=== PATIENT | female | born 1985 | race Caucasian/White ===

== ENCOUNTER 2016-08-06 20:26 | Emergency (ER) | payer MEDICAID ==
--- NOTE | 2016-08-06 20:36 | ER Document Report ---
ED Medical Screen (RME) - General Stated Complaint: HEADACHE Time seen by provider: 20:34 Mode of Arrival: Ambulatory Information source: Patient Notes: 31-year-old female presents to ED for headache since this a.m. started after a lot of anxiety this morning but as the day progressed the headache progressed states did not become severe until about 3 hours ago. Patient states she has vomited 2. Patient states headache is worse with noise like and smells. Last menstrual period 07/29/2016 I have greeted and performed a rapid initial assessment of this patient. A comprehensive ED assessment and evaluation of the patient, analysis of test results and completion of medical decision making process will be conducted by an additional ED providers. TRAVEL OUTSIDE OF THE [place] IN LAST 30 DAYS: No - Related Data Allergies/Adverse Reactions: infliximab [From Remicade] Allergy (Severe, Verified 07/10/16 16:20) Anaphylaxis clindamycin [Clindamycin] Allergy (Verified 07/10/16 16:20) NSAIDS (Non-Steroidal Anti-Inflamma Allergy (Verified 07/10/16 16:20) sulfamethoxazole [From Bactrim] Allergy (Verified 07/10/16 16:20) trimethoprim [From Bactrim] Allergy (Verified 07/10/16 16:20) codeine [Codeine] Adverse Reaction (Verified 07/10/16 16:45) Past Medical History - Past Medical History Cardiac Medical History: Denies: Hx Coronary Artery Disease, Hx Heart Attack, Hx Hypertension Pulmonary Medical History: Reports: Hx Asthma Denies: Hx Bronchitis, Hx COPD, Hx Pneumonia Neurological Medical History: Reports: Hx Migraine, Hx Seizures - BLOOD SUGAR GOT TOO LOW. Denies: Hx Cerebrovascular Accident Endocrine Medical History: Reports: Hx Diabetes Mellitus Type 1 GI Medical History: Reports: Hx Gastroesophageal Reflux Disease, Hx Ulcerative Colitis Musculoskeltal Medical History: Denies Hx Arthritis, Reports Hx Fibromyalgia, Reports Hx Musculoskeletal Trauma Psychiatric Medical History: Reports: Hx Anxiety, Hx Depression Traumatic Medical History: Reports: Hx Fractures Past Surgical History: Reports: Hx Section - x1, Hx Tubal Ligation. Denies: Hx Pacemaker - Immunizations Hx Diphtheria, Pertussis, Tetanus Vaccination: Yes
[2016-08-06] MEDS ORDERED: DIPHENHYDRAMINE HCL 50 MG/ML VIAL IV ONE (20:37)
[2016-08-06] MEDS ORDERED: KETOROLAC TROMETHAMINE INJ/PF 30 MG/1 ML SDV IV ONE (20:37)
[2016-08-06] MEDS ORDERED: PROCHLORPERAZINE EDISYLATE INJ 10 MG/2 ML VIAL IV ONE (20:37)
[2016-08-06] MEDS ORDERED: NORMAL SALINE 1000 ML 1,000 ML IV ONE (20:38)
[2016-08-06] MEDS ORDERED: LORAZEPAM INJ 2 MG/1 ML VIAL IV ONE (21:34)
--- NOTE | 2016-08-06 21:34 | ER Document Report ---
ED General - General Chief Complaint: Headache <24 hrs old Stated Complaint: HEADACHE Mode of Arrival: Ambulatory Notes: Patient is a 31-year-old female past medical history of migraine headaches and ulcerative colitis who presents with 3 days of a severe, bilateral temporal headache. She describes this as a constant, throbbing, severe pain. Lights and sounds worsen the pain. She has tried Aleve at home with no improvement of the headache. Notes this feels very similar to prior migraine headaches that she has had in the past. Headache was gradual in onset and got progressively worse. She denies any associated weakness, numbness, fever, or altered mental status. She has not seen her primary care physician regarding today's concerns. She denies any head trauma. TRAVEL OUTSIDE OF THE [place] IN LAST 30 DAYS: No - Related Data Allergies/Adverse Reactions: infliximab [From Remicade] Allergy (Severe, Verified 07/10/16 16:20) Anaphylaxis clindamycin [Clindamycin] Allergy (Verified 07/10/16 16:20) NSAIDS (Non-Steroidal Anti-Inflamma Allergy (Verified 07/10/16 16:20) sulfamethoxazole [From Bactrim] Allergy (Verified 07/10/16 16:20) trimethoprim [From Bactrim] Allergy (Verified 07/10/16 16:20) codeine [Codeine] Adverse Reaction (Mild, Verified 08/06/16 20:34) Past Medical History - General Information source: Patient - Social History Smoking Status: Current Every Day Smoker Chew tobacco use (# tins/day): No Frequency of alcohol use: None Drug Abuse: None Lives with: Spouse/Significant other Family History: COPD, DM, Malignancy Patient has suicidal ideation: No Patient has homicidal ideation: No - Past Medical History Cardiac Medical History: Denies: Hx Coronary Artery Disease, Hx Heart Attack, Hx Hypertension Pulmonary Medical History: Reports: Hx Asthma Denies: Hx Bronchitis, Hx COPD, Hx Pneumonia Neurological Medical History: Reports: Hx Migraine, Hx Seizures - BLOOD SUGAR GOT TOO LOW. Denies: Hx Cerebrovascular Accident Endocrine Medical History: Reports: Hx Diabetes Mellitus Type 1 Renal/ Medical History: Denies: Hx Peritoneal Dialysis GI Medical History: Reports: Hx Gastroesophageal Reflux Disease, Hx Ulcerative Colitis Musculoskeltal Medical History: Denies Hx Arthritis, Reports Hx Fibromyalgia, Reports Hx Musculoskeletal Trauma Psychiatric Medical History: Reports: Hx Anxiety, Hx Depression Traumatic Medical History: Reports: Hx Fractures Past Surgical History: Reports: Hx Section - x1, Hx Tubal Ligation. Denies: Hx Pacemaker - Immunizations Hx Diphtheria, Pertussis, Tetanus Vaccination: Yes Review of Systems - Review of Systems Notes: Constitutional: Negative for fever. HENT: Negative for sore throat. Eyes: Negative for visual changes. Cardiovascular: Negative for chest pain. Respiratory: Negative for shortness of breath. Gastrointestinal: Negative for abdominal pain, vomiting or diarrhea. Genitourinary: Negative for dysuria. Musculoskeletal: Negative for back pain. Skin: Negative for rash. Neurological: Positive for headaches, negative for weakness or numbness. 10 point ROS negative except as marked above and in HPI. Physical Exam - Vital signs Vitals: Temp Pulse Resp BP Pulse Ox 97.7 F 82 20 125/78 98 08/06/16 20:30 08/06/16 20:30 08/06/16 20:30 08/06/16 20:30 08/06/16 20:30 Interpretation: Normal Notes: PHYSICAL EXAMINATION: GENERAL: Appears mildly uncomfortable but in no acute distress. HEAD: Atraumatic, normocephalic. EYES: Pupils equal round and reactive to light, extraocular movements intact, sclera anicteric, conjunctiva are normal. ENT: nares patent, oropharynx clear without exudates. Moist mucous membranes. NECK: Normal range of motion, supple without lymphadenopathy LUNGS: Breath sounds clear to auscultation bilaterally and equal. No wheezes rales or rhonchi. HEART: Regular rate and rhythm without murmurs ABDOMEN: Soft, nontender, normoactive bowel sounds. No guarding, no rebound. No masses appreciated. EXTREMITIES: Normal range of motion, no pitting or edema. No cyanosis. NEUROLOGICAL: Face symmetric. Tongue protrudes midline. Extraocular motions intact. Pupils are 2 mm and equally reactive. Normal speech, normal gait. 5 out of 5 strength in both the distal and proximal upper and lower extremities bilaterally. Sensation is grossly intact throughout. Finger to nose testing normal. Pronator drift normal. PSYCH: Normal mood, normal affect. SKIN: Warm, Dry, normal turgor, no rashes or lesions noted. Course - Re-evaluation Re-evalutation: 08/06/16 21:34 Presentation of a headache that appears to be most consistent with tension versus migrainous type headache. Headache was not maximal in onset, patient has no focal neurologic deficits, no nuchal rigidity, vital signs within normal limits, no papilledema, and patient is overall well in appearance. Based on clinical history and examination I do not suspect an acute subarachnoid hemorrhage, dural venous sinus thrombosis, acute meningitis, or intercranial mass. Given my low clinical suspicion for any acute life-threatening etiology, I do not feel advanced neuro imaging or laboratory testing is indicated at this time. Will proceed with headache cocktail and reassess. 08/06/16 23:08 Patient has had complete resolution of her headache. Patient did have mild hypertension thereafter likely secondary to medication administration. This did resolve with a period of observation. At this time will discharge with return precautions and follow-up recommendations. Verbal discharge instructions given a the bedside and opportunity for questions given. Medication warnings reviewed. Patient is in agreement with this plan and has verbalized understanding of return precautions and the need for primary care follow-up in the next 24-72 hours. - Vital Signs Vital signs: Temp Pulse Resp BP Pulse Ox 97.6 F 50 L 16 97/58 L 99 08/06/16 23:44 08/06/16 23:44 08/06/16 23:44 08/06/16 23:44 08/06/16 23:44 Discharge - Discharge Clinical Impression: Migraine headache Qualifiers: Migraine type: unspecified Status migrainosus presence: with status migrainosus Intractability: not intractable Qualified Code(s): G43.901 - Migraine, unspecified, not intractable, with status migrainosus Condition: Good Disposition: HOME, SELF-CARE Additional Instructions: You were seen today for a migraine headache. Please follow-up with your primary care doctor regarding today's ED visit. Return to emergency department immediately if you develop a headache that gets to its maximum severity within 20 minutes of onset, you pass out, you develop weakness, numbness, changes in your vision, become unable to keep any fluids down for more than 12 hours, or develop a fever greater than 100.4 degrees Fahrenheit. If you develop a similar migraine headache in the future I recommend that you immediately take 600 mg of ibuprofen and 50 mg of Benadryl and go to sleep as quickly as possible. This can often prevent your migraine headache from becoming severe. Referrals: JULIETA ALBERTO MD [Primary Care Provider] - Follow up in 3-5 days
[2016-08-06] MEDS ORDERED: HALOPERIDOL LACTATE INJ 5 MG/1 ML VIAL IV ONE (22:30)
[2016-08-07 04:14] VITALS: BP 99/77
== END 2016-08-07 04:12 | disposition home or self-care (01) ==
LOC: ER 20:26
DX: G43.909 Migraine, unspecified, not intractable, without status migrainosus (principal); E10.9 Type 1 diabetes mellitus without complications; F17.200 Nicotine dependence, unspecified, uncomplicated; J45.909 Unspecified asthma, uncomplicated; Z88.1 Allergy status to other antibiotic agents; Z87.892 Personal history of anaphylaxis; Z88.8 Allergy status to other drugs, medicaments and biological substances
CPT/HCPCS: 99283; 96361; 96374; 96375; J1200; J1630; J1885; J2060; J0780; J7030

== ENCOUNTER 2016-11-19 10:43 | Emergency (ER) | payer MEDICAID ==
[2016-11-19 11:08] VITALS: BP 112/79
[2016-11-19] MEDS ORDERED: PROCHLORPERAZINE EDISYLATE INJ 10 MG/2 ML VIAL IV ONE (11:22)
[2016-11-19] MEDS ORDERED: DIPHENHYDRAMINE HCL 50 MG/ML VIAL IV ONE (11:22)
[2016-11-19] MEDS ORDERED: KETOROLAC TROMETHAMINE INJ/PF 30 MG/1 ML SDV IV ONE (11:34)
--- NOTE | 2016-11-19 11:41 | ER Document Report ---
ED General - General Chief Complaint: Headache Stated Complaint: HEADACHE Notes: Patient is a 31-year-old female with a past medical history of migraine headaches and ulcerative colitis who presents with one of her typical migraine headaches. States that it started approximately 8 hours prior to arrival. She does describe it as a severe, constant, dull, aching pain to the left temporal and parietal scalp. States it is worsened by lights and sounds. She has had associated nausea and one episode of vomiting. Denies any weakness, numbness, fever, altered mental status, or neck pain. She has not tried anything to treat her symptoms. She has not seen her primary doctor regarding today's concerns. TRAVEL OUTSIDE OF THE [place] IN LAST 30 DAYS: No - Related Data Allergies/Adverse Reactions: infliximab [From Remicade] Allergy (Severe, Verified 11/19/16 11:27) Anaphylaxis clindamycin [Clindamycin] Allergy (Verified 11/19/16 11:27) sulfamethoxazole [From Bactrim] Allergy (Verified 11/19/16 11:27) trimethoprim [From Bactrim] Allergy (Verified 11/19/16 11:27) codeine [Codeine] Adverse Reaction (Mild, Verified 11/19/16 11:27) NSAIDS (Non-Steroidal Anti-Inflamma Adverse Reaction (Verified 11/19/16 11:51) Past Medical History - General Information source: Patient - Social History Smoking Status: Never Smoker Frequency of alcohol use: None Drug Abuse: None Lives with: Spouse/Significant other Family History: COPD, DM, Malignancy Patient has suicidal ideation: No Patient has homicidal ideation: No - Past Medical History Cardiac Medical History: Denies: Hx Coronary Artery Disease, Hx Heart Attack, Hx Hypertension Pulmonary Medical History: Reports: Hx Asthma Denies: Hx Bronchitis, Hx COPD, Hx Pneumonia Neurological Medical History: Reports: Hx Migraine, Hx Seizures - BLOOD SUGAR GOT TOO LOW. Denies: Hx Cerebrovascular Accident Endocrine Medical History: Reports: Hx Diabetes Mellitus Type 1 Renal/ Medical History: Denies: Hx Peritoneal Dialysis GI Medical History: Reports: Hx Gastroesophageal Reflux Disease, Hx Ulcerative Colitis Musculoskeltal Medical History: Denies Hx Arthritis, Reports Hx Fibromyalgia, Reports Hx Musculoskeletal Trauma Psychiatric Medical History: Reports: Hx Anxiety, Hx Depression Traumatic Medical History: Reports: Hx Fractures Past Surgical History: Reports: Hx Section - x1, Hx Tubal Ligation. Denies: Hx Pacemaker - Immunizations Hx Diphtheria, Pertussis, Tetanus Vaccination: Yes Review of Systems - Review of Systems Notes: Constitutional: Negative for fever. HENT: Negative for sore throat. Eyes: Negative for visual changes. Cardiovascular: Negative for chest pain. Respiratory: Negative for shortness of breath. Gastrointestinal: Negative for abdominal pain, vomiting or diarrhea. Genitourinary: Negative for dysuria. Musculoskeletal: Negative for back pain. Skin: Negative for rash. Neurological: Positive for headaches, negative for weakness or numbness. 10 point ROS negative except as marked above and in HPI. Physical Exam - Vital signs Vitals: Temp Pulse Resp BP Pulse Ox 97.5 F 76 16 112/79 98 11/19/16 11:05 11/19/16 11:05 11/19/16 11:05 11/19/16 11:11/19/16 11:05 Interpretation: Normal Notes: PHYSICAL EXAMINATION: GENERAL: Well-appearing, well-nourished and in no acute distress. HEAD: Atraumatic, normocephalic. EYES: Pupils equal round and reactive to light, extraocular movements intact, sclera anicteric, conjunctiva are normal. ENT: nares patent, oropharynx clear without exudates. Moist mucous membranes. NECK: Normal range of motion, supple without lymphadenopathy LUNGS: Breath sounds clear to auscultation bilaterally and equal. No wheezes rales or rhonchi. HEART: Regular rate and rhythm without murmurs ABDOMEN: Soft, nontender, normoactive bowel sounds. No guarding, no rebound. No masses appreciated. EXTREMITIES: Normal range of motion, no pitting or edema. No cyanosis. NEUROLOGICAL: Face symmetric. Tongue protrudes midline. Extraocular motions intact. Pupils are 2 mm and equally reactive. Normal speech, normal gait. 5 out of 5 strength in both the distal and proximal upper and lower extremities bilaterally. Sensation is grossly intact throughout. Finger to nose testing normal. Pronator drift normal. PSYCH: Normal mood, normal affect. SKIN: Warm, Dry, normal turgor, no rashes or lesions noted. Course - Re-evaluation Re-evalutation: 11/19/16 11:39 Presentation of a headache that appears to be most consistent with tension versus migrainous type headache. Headache was not maximal in onset, patient has no focal neurologic deficits, no nuchal rigidity, vital signs within normal limits, no papilledema, and patient is overall well in appearance. Based on clinical history and examination I do not suspect an acute subarachnoid hemorrhage, dural venous sinus thrombosis, acute meningitis, or intercranial mass. Given my low clinical suspicion for any acute life-threatening etiology, I do not feel advanced neuro imaging or laboratory testing is indicated at this time. Will proceed with headache cocktail and reassess. 11/19/16 12:13 Patient has had complete resolution of her headache at this time.At this time will discharge with return precautions and follow-up recommendations. Verbal discharge instructions given a the bedside and opportunity for questions given. Medication warnings reviewed. Patient is in agreement with this plan and has verbalized understanding of return precautions and the need for primary care follow-up in the next 24-72 hours. - Vital Signs Vital signs: Temp Pulse Resp BP Pulse Ox 97.5 F 76 16 112/79 98 11/19/16 11:05 11/19/16 11:05 11/19/16 11:05 11/19/16 11:05 11/19/16 11:05 Discharge - Discharge Clinical Impression: Migraine headache Qualifiers: Migraine type: unspecified Status migrainosus presence: with status migrainosus Intractability: not intractable Qualified Code(s): G43.901 - Migraine, unspecified, not intractable, with status migrainosus Condition: Good Disposition: HOME, SELF-CARE Additional Instructions: You were seen today for a migraine headache. Please follow-up with your primary care doctor regarding today's ED visit. Return to emergency department immediately if you develop a headache that gets to its maximum severity within 20 minutes of onset, you pass out, you develop weakness, numbness, changes in your vision, become unable to keep any fluids down for more than 12 hours, or develop a fever greater than 100.4 degrees Fahrenheit. If you develop a similar migraine headache in the future I recommend that you immediately take 600 mg of ibuprofen and 50 mg of Benadryl and go to sleep as quickly as possible. This can often prevent your migraine headache from becoming severe.
== END 2016-11-19 12:12 | disposition home or self-care (01) ==
LOC: ER 10:43
DX: G43.901 Migraine, unspecified, not intractable, with status migrainosus (principal); E10.9 Type 1 diabetes mellitus without complications; Z88.3 Allergy status to other anti-infective agents; Z88.6 Allergy status to analgesic agent; Z98.51 Tubal ligation status
CPT/HCPCS: 99283; 96374; 96375; J1200; J1885; J0780

== ENCOUNTER 2017-01-07 05:45 | Emergency (ER) | payer SELFPAY ==
--- NOTE | 2017-01-07 06:30 | ER Document Report ---
ED Psych Disorder / Suicide - General Mode of Arrival: Medic Information source: Patient, Parent, Law Enforcement TRAVEL OUTSIDE OF THE [place] IN LAST 30 DAYS: No - HPI Patient complains to provider of: Other - Substance abuse Associated symptoms: Other - See above <MARGARET POLLOCK - Last Filed: 01/07/17 06:43> <FLO MESSER - Last Filed: 01/07/17 11:25> <JASMINE HUSAIN - Last Filed: 01/07/17 13:02> - General Chief Complaint: Psych Problem Stated Complaint: IVC/WITH PAPERS Notes: Patient is a 31 year old female, with a past medical history including substance abuse, anxiety, and depression, who presents to the emergency department under IVC paperwork for substance abuse. Patient was found by her father asleep in her car after taking Dilauded intravenously last night, father was woken up by patient's young twins when they couldn't find their mother. Patient reports that her father confiscated her prescriptions and had her IVC-ed , she believes that this was a "misunderstanding". Patient reports she has a history of substance abuse and usually uses oxycodone by IV. Patient recently moved back in her with parents and does not get along with her dad. Patient is currently taking Celexa, Adderall, and Xanax. Patient is not prescribed Dilauded and states that last night she bought it. (MARGARET POLLOCK) - Related Data Allergies/Adverse Reactions: infliximab [From Remicade] Allergy (Severe, Verified 11/19/16 11:27) Anaphylaxis clindamycin [Clindamycin] Allergy (Verified 11/19/16 11:27) sulfamethoxazole [From Bactrim] Allergy (Verified 11/19/16 11:27) trimethoprim [From Bactrim] Allergy (Verified 11/19/16 11:27) codeine [Codeine] Adverse Reaction (Mild, Verified 11/19/16 11:27) NSAIDS (Non-Steroidal Anti-Inflamma Adverse Reaction (Verified 11/19/16 11:51) Past Medical History - General Information source: Patient, Parent - Social History Smoking Status: Current Every Day Smoker Cigarette use (# per day): Yes - 1 ppd Frequency of alcohol use: None Drug Abuse: Prescription drugs Family History: Reviewed & Not Pertinent, COPD, DM, Malignancy Patient has suicidal ideation: No Patient has homicidal ideation: No Pulmonary Medical History: Reports: Hx Asthma Neurological Medical History: Reports: Hx Migraine, Hx Seizures - BLOOD SUGAR GOT TOO LOW Endocrine Medical History: Reports: Hx Diabetes Mellitus Type 1 GI Medical History: Reports: Hx Gastroesophageal Reflux Disease, Hx Ulcerative Colitis Musculoskeltal Medical History: Reports Hx Fibromyalgia, Reports Hx Musculoskeletal Trauma Psychiatric Medical History: Reports: Hx Anxiety, Hx Depression Traumatic Medical History: Reports: Hx Fractures Past Surgical History: Reports: Hx Section - x1, Hx Tubal Ligation - Immunizations Hx Diphtheria, Pertussis, Tetanus Vaccination: Yes <MARGARET POLLOCK - Last Filed: 01/07/17 06:43> Review of Systems - Review of Systems Constitutional: No symptoms reported EENT: No symptoms reported Cardiovascular: No symptoms reported Respiratory: No symptoms reported Gastrointestinal: No symptoms reported Genitourinary: No symptoms reported Female Genitourinary: No symptoms reported Musculoskeletal: No symptoms reported Skin: No symptoms reported Hematologic/Lymphatic: No symptoms reported Neurological/Psychological: No symptoms reported -: Yes All other systems reviewed and negative <MARGARET POLLOCK - Last Filed: 01/07/17 06:43> Physical Exam - Vital signs Interpretation: Normal - General General appearance: Appears well, Alert - HEENT Head: Normocephalic, Atraumatic - Respiratory Respiratory status: No respiratory distress Chest status: Nontender Breath sounds: Rhonchi, Wheezing Chest palpation: Normal - Cardiovascular Rhythm: Regular Heart sounds: Normal auscultation Murmur: No - Back Back: Normal, Nontender - Extremities General upper extremity: Normal inspection General lower extremity: Normal inspection - Neurological Neuro grossly intact: Yes Cognition: Normal Orientation: AAOx4 [place] Coma Scale Eye Opening: Spontaneous [place] Coma Scale Verbal: Oriented [place] Coma Scale Motor: Obeys Commands Williams Coma Scale Total: 15 Speech: Normal - Psychological Associated symptoms: Normal affect, Normal mood - Skin Skin Temperature: Warm Skin Moisture: Dry Skin Color: Normal <MARGARET POLLOCK - Last Filed: 01/07/17 06:43> Course - Laboratory Result Diagrams: 01/07/17 06:21 01/07/17 06:21 <MARGARET POLLOCK - Last Filed: 01/07/17 06:43> - Laboratory Result Diagrams: 01/07/17 06:21 01/07/17 06:59 <FLO MESSER - Last Filed: 01/07/17 11:25> - Laboratory Result Diagrams: 01/07/17 06:21 01/07/17 06:59 - EKG Interpretation by Me EKG shows normal: Sinus rhythm, Intervals, QRS Complexes, ST-T Waves. abnormal : [place] - Borderline left axis deviation Rate: Normal - 65 Rhythm: NSR <JASMINE HUSAIN - Last Filed: 01/07/17 13:02> - Vital Signs Vital signs: Temp Pulse Resp BP Pulse Ox 97.5 F 64 18 115/75 95 01/07/17 11:51 01/07/17 11:51 01/07/17 05:54 01/07/17 11:51 01/07/17 11:51 - Laboratory Laboratory results interpreted by me: 01/07/17 01/07/17 01/07/17 06:21 06:21 06:59 WBC 11.7 H Eosinophils % 6.6 H Absolute Eosinophils 0.8 H Glucose 135 H Urine Ascorbic Acid 20 H Acetaminophen < 10 L Discharge <MARGARET POLLOCK - Last Filed: 01/07/17 06:43> <FLO MESSER - Last Filed: 01/07/17 11:25> <JASMINE HUSAIN - Last Filed: 01/07/17 13:02> - Discharge Clinical Impression: Intravenous drug abuse Condition: Stable Disposition: HOME, SELF-CARE Additional Instructions: Opioid Use Opioid medications are highly addictive medications that should only be taken as prescribed and directed by a providing physician. Opioids are available legally and illegally. If using Opioids without being prescribed or not as directed substance abuse inpatient detoxification and then follow up with an Intensive Outpatient Substance Abuse program is recommended given the physiological changes that take place in the brain. It is illegal to sell or obtain these types of medications and can result in felony charges. Call mobile crisis or return to the emergency department if there are continued concerns. You should go directly to [facility] from the emergency department to initiate outpatient substance abuse services. Referrals: [facility] [Outside] - 01/07/17 12:30 pm (Go directly to [facility] upon discharge from the emergency department) Scribe Attestation: 01/07/17 12:01 I personally performed the services described in the documentation, reviewed and edited the documentation which was dictated to the scribe in my presence, and it accurately records my words and actions. (JASMINE HUASIN) Scribe Documentation - Scribe Written by Sakina:: sakina Renteria, 01/05/17, 0645 acting as scribe for :: Uriel <MARGARET POLLOCK - Last Filed: 01/07/17 06:43>
[2017-01-07 06:33] LABS: ABSOLUTE BASOPHILS # (AUTO) 0.1 10^3/uL (0.0-0.2); ABSOLUTE EOSINOPHILS # (AUTO) 0.8 10^3/uL (0.0-0.6); ABSOLUTE LYMPHOCYTES (AUTO) 3.5 10^3/uL (0.5-4.7); ABSOLUTE MONOCYTES (AUTO) 0.7 10^3/uL (0.1-1.4); ABSOLUTE NEUT (AUTO) 6.7 10^3/uL (1.7-8.2); BASOPHILS % (AUTO) 0.6 % (0-2); EOSINOPHILS % (AUTO) 6.6 % (0-6); HEMATOCRIT 37.8 % (36.0-47.0); HEMOGLOBIN 12.7 g/dL (12.0-15.5); HGB HCT DIFFERENCE 0.3; LYMPHOCYTES % (AUTO) 29.8 % (13-45); MEAN CORPUSCULAR HEMOGLOBIN 31.3 pg (27.0-33.4); MEAN CORPUSCULAR HGB CONC 33.6 g/dL (32.0-36.0); MEAN CORPUSCULAR VOLUME 93 fl (80-97); MONOCYTES % (AUTO) 5.9 % (3-13); RED BLOOD COUNT 4.07 10^6/uL (3.72-5.28); SEGMENTED NEUTROPHILS % (AUTO) 57.1 % (42-78); WHITE BLOOD COUNT 11.7 10^3/uL (4.0-10.5)
[2017-01-07 06:50] LABS: APPEARANCE,URINE SLIGHTLY-CLOUDY; BILIRUBIN,URINE NEGATIVE (NEGATIVE); GLUCOSE, URINE NEGATIVE (NEGATIVE); KETONES,URINE NEGATIVE (NEGATIVE); LEUKOCYTE ESTERASE,URINE NEGATIVE (NEGATIVE); NITRITE,URINE NEGATIVE (NEGATIVE); PROTEIN,URINE NEGATIVE (NEGATIVE); URINE SPECIFIC GRAVITY 1.012; UROBILINOGEN,URINE NEGATIVE mg/dL (<2.0)
[2017-01-07 07:01] LABS: URINE BARBITURATES SCREEN NEGATIVE; URINE METHADONE SCREEN NEGATIVE; URINE OPIATES LOW UNCONFIRMED POSITIVE; URINE PHENCYCLIDINE SCREEN NEGATIVE
[2017-01-07 07:35] LABS: ALANINE AMINOTRANSFERASE 21 U/L (9-52); ALBUMIN 3.7 g/dL (3.5-5.0); ALKALINE PHOSPHATASE 72 U/L (38-126); ANION GAP 8 (5-19); ASPARTATE AMINO TRANSFERASE 17 U/L (14-36); BILIRUBIN,DIRECT 0.3 mg/dL (0.0-0.4); BILIRUBIN,TOTAL 0.3 mg/dL (0.2-1.3); BLOOD UREA NITROGEN 13 mg/dL (7-20); CALCIUM 9.4 mg/dL (8.4-10.2); CARBON DIOXIDE 26 mmol/L (22-30); CHLORIDE 105 mmol/L (98-107); CREATININE RESULT 0.64 mg/dL (0.52-1.25); GLUCOSE 135 mg/dL (75-110); POTASSIUM 3.9 mmol/L (3.6-5.0); SODIUM 139.1 mmol/L (137-145); TOTAL PROTEIN 6.6 g/dL (6.3-8.2)
[2017-01-07 07:37] LABS: ALCOHOL < 10 mg/dL (NONE DETECTED)
[2017-01-07 11:53] VITALS: BP 115/75
--- NOTE | 2017-01-08 17:36 | EKG REPORT ---
SEVERITY:- OTHERWISE NORMAL ECG - SINUS RHYTHM BORDERLINE LEFT AXIS DEVIATION : Confirmed by: Remigio Anguiano 08-Jan-2017 17:36:13
== END 2017-01-07 12:26 | disposition home or self-care (01) ==
LOC: ER 05:45
DX: F19.10 Other psychoactive substance abuse, uncomplicated (principal); F41.9 Anxiety disorder, unspecified; F32.9 Major depressive disorder, single episode, unspecified; F17.210 Nicotine dependence, cigarettes, uncomplicated; E10.9 Type 1 diabetes mellitus without complications; Z88.3 Allergy status to other anti-infective agents; Z88.6 Allergy status to analgesic agent; Z98.51 Tubal ligation status
CPT/HCPCS: 36415; 80053; 80307; 81001; 84703; 85025; 93005; 93010; 99284

== ENCOUNTER 2017-01-25 14:09 | Emergency (ER) | payer SELFPAY ==
[2017-01-25 14:19] VITALS: BP 115/64
--- NOTE | 2017-01-25 15:39 | ER Document Report ---
ED Medical Screen (RME) - General Chief Complaint: Knee Pain Stated Complaint: KNEE PAIN Time Seen by Provider: 01/25/17 15:30 Mode of Arrival: Ambulatory Information source: Patient, [facility] TRAVEL OUTSIDE OF THE [place] IN LAST 30 DAYS: No - HPI Onset: Other - days Quality of pain: Dull Associated Symptoms: None Exacerbated by: Denies Relieved by: Denies Notes: 01/25/17 15:35 Patient is a 31-year-old female who presents with several days of pain to her knees and legs. Patient denies any trauma. Patient states she has a "type I diabetic" but does not take any insulin. Patient states that she does check her blood sugars and they typically are in the normal range. Patient states she cannot take ibuprofen due to history of ulcerative colitis. Patient has not tried anything else negative for pain - Related Data Smoking: Cigarettes Allergies/Adverse Reactions: infliximab [From Remicade] Allergy (Severe, Verified 01/25/17 15:31) Anaphylaxis clindamycin [Clindamycin] Allergy (Verified 01/25/17 15:31) sulfamethoxazole [From Bactrim] Allergy (Verified 01/25/17 15:31) trimethoprim [From Bactrim] Allergy (Verified 01/25/17 15:31) codeine [Codeine] Adverse Reaction (Mild, Verified 01/25/17 15:31) NSAIDS (Non-Steroidal Anti-Inflamma Adverse Reaction (Verified 01/25/17 15:31) Past Medical History - General Information source: Patient - Social History Cigarette use (# per day): Yes Frequency of alcohol use: None Drug Abuse: None - Past Medical History Cardiac Medical History: Denies: Hx Coronary Artery Disease, Hx Heart Attack, Hx Hypertension Pulmonary Medical History: Reports: Hx Asthma Denies: Hx Bronchitis, Hx COPD, Hx Pneumonia Neurological Medical History: Reports: Hx Migraine, Hx Seizures - BLOOD SUGAR GOT TOO LOW. Denies: Hx Cerebrovascular Accident Endocrine Medical History: Reports: Hx Diabetes Mellitus Type 1 Renal/ Medical History: Denies: Hx Peritoneal Dialysis GI Medical History: Reports: Hx Gastroesophageal Reflux Disease, Hx Ulcerative Colitis Musculoskeltal Medical History: Denies Hx Arthritis, Reports Hx Fibromyalgia, Reports Hx Musculoskeletal Trauma Psychiatric Medical History: Reports: Hx Anxiety, Hx Depression Traumatic Medical History: Reports: Hx Fractures Past Surgical History: Reports: Hx Section - x1, Hx Tubal Ligation. Denies: Hx Pacemaker - Immunizations Hx Diphtheria, Pertussis, Tetanus Vaccination: Yes Review of Systems - Review of Systems Musculoskeletal: Joint pain -: Yes All other systems reviewed and negative Physical Exam - Vital signs Vitals: Temp Pulse Resp BP Pulse Ox 99.4 F 104 H 18 115/64 96 01/25/17 14:14 01/25/17 14:14 01/25/17 14:14 01/25/17 14:14 01/25/17 14:14 Interpretation: Normal - General General appearance: Appears well - Respiratory Respiratory status: No respiratory distress Chest status: Nontender Breath sounds: Normal Chest palpation: Normal - Extremities General upper extremity: Normal inspection, Nontender, Normal color, Normal ROM , Normal temperature General lower extremity: Normal inspection, Nontender, Normal color, Normal ROM , Normal temperature, Normal weight bearing. No: Ja's sign Knee: Normal, Nontender Calf: Normal, Nontender - Neurological Neuro grossly intact: Yes Orientation: AAOx4 Course - Re-evaluation Re-evalutation: 01/25/17 15:37 Patient became belligerent and was cursing at the staff when told she cannot receive any opioid-based pain medications. On January 07, patient was evaluated in this emergency department for self injecting Dilaudid and ultimately went to outpatient substance abuse. For this reason, I did not feel it was appropriate to prescribe any opioid based medications. Patient left without discharge instructions. 01/25/17 15:39 Patient told staff member that she was going to purchase heroin to use for her pain. - Vital Signs Vital signs: Temp Pulse Resp BP Pulse Ox 99.4 F 104 H 20 115/64 96 01/25/17 14:14 01/25/17 14:14 01/25/17 15:25 01/25/17 14:14 01/25/17 14:14 Doctor's Discharge - Discharge Clinical Impression: Knee pain Disposition: HOME, SELF-CARE Instructions: Leg Pain Nonspecific ([facility]) Additional Instructions: Follow-up with your primary care doctor. Return to the emergency department if worse.
== END 2017-01-25 15:45 | disposition home or self-care (01) ==
LOC: ER 14:09
DX: M25.562 Pain in left knee (principal); M25.561 Pain in right knee; F17.200 Nicotine dependence, unspecified, uncomplicated; E10.9 Type 1 diabetes mellitus without complications; Z88.3 Allergy status to other anti-infective agents; Z88.6 Allergy status to analgesic agent; Z98.51 Tubal ligation status
CPT/HCPCS: 82962; 99283

== ENCOUNTER 2017-01-26 03:15 | Emergency (ER) | payer SELFPAY ==
--- NOTE | 2017-01-26 03:28 | ER Document Report ---
ED Psych Disorder / Suicide - General Chief Complaint: Psych Problem Stated Complaint: PSYCH EVAL Time Seen by Provider: 01/26/17 03:17 Notes: The patient is a 31-year-old female, past medical history IVDA, IDDM, Ulcerative Colitis, migraines, presents by EMS after she was exhibiting bizarre behavior at the gas station. She is mildly agitated and tearful. 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 She asked the gas operations superintendent for a compressor station chief engineer and was upset when he did not have one. Police were called and EMS was called. Pt says she used heroin and Xanax tonight. Patient does not want to go back to rehab she has gone 4 times already. Patient denies any suicidality, homicidality or any other complaints. TRAVEL OUTSIDE OF THE [place] IN LAST 30 DAYS: No - Related Data Allergies/Adverse Reactions: infliximab [From Remicade] Allergy (Severe, Verified 01/25/17 15:31) Anaphylaxis clindamycin [Clindamycin] Allergy (Verified 01/25/17 15:31) sulfamethoxazole [From Bactrim] Allergy (Verified 01/25/17 15:31) trimethoprim [From Bactrim] Allergy (Verified 01/25/17 15:31) codeine [Codeine] Adverse Reaction (Mild, Verified 01/25/17 15:31) NSAIDS (Non-Steroidal Anti-Inflamma Adverse Reaction (Verified 01/25/17 15:31) Past Medical History - General Information source: Patient - Social History Smoking Status: Current Every Day Smoker Drug Abuse: Heroin, Prescription drugs - Xanax Family History: Reviewed & Not Pertinent, COPD, DM, Malignancy - Past Medical History Cardiac Medical History: Denies: Hx Coronary Artery Disease, Hx Heart Attack, Hx Hypertension Pulmonary Medical History: Reports: Hx Asthma Denies: Hx Bronchitis, Hx COPD, Hx Pneumonia Neurological Medical History: Reports: Hx Migraine, Hx Seizures - BLOOD SUGAR GOT TOO LOW. Denies: Hx Cerebrovascular Accident Endocrine Medical History: Reports: Hx Diabetes Mellitus Type 1 Renal/ Medical History: Denies: Hx Peritoneal Dialysis GI Medical History: Reports: Hx Gastroesophageal Reflux Disease, Hx Ulcerative Colitis Musculoskeltal Medical History: Denies Hx Arthritis, Reports Hx Fibromyalgia, Reports Hx Musculoskeletal Trauma Psychiatric Medical History: Reports: Hx Anxiety, Hx Depression Traumatic Medical History: Reports: Hx Fractures Past Surgical History: Reports: Hx Section - x1, Hx Tubal Ligation. Denies: Hx Pacemaker - Immunizations Hx Diphtheria, Pertussis, Tetanus Vaccination: Yes Review of Systems - Review of Systems Notes: REVIEW OF SYSTEMS: CONSTITUTIONAL: -fevers, -chills EENT: -eye pain, -difficulty swallowing, -nasal congestion CARDIOVASCULAR:-chest pain, -syncope. RESPIRATORY: -cough, -SOB GASTROINTESTINAL: -abdominal pain, - nausea, -vomiting, -diarrhea GENITOURINARY: -dysuria, -hematuria MUSCULOSKELETAL: -back pain, -neck pain SKIN: -rash or skin lesions. HEMATOLOGIC: -easy bruising or bleeding. LYMPHATIC: -swollen, enlarged glands. NEUROLOGICAL: -altered mental status or loss of consciousness, -headache, - neurologic symptoms PSYCHIATRIC: +anxiety, -depression, +substance abuse ALL OTHER SYSTEMS REVIEWED AND NEGATIVE. Physical Exam - Notes Notes: PHYSICAL EXAMINATION: GENERAL: Agitated. HEAD: Atraumatic, normocephalic. EYES: Pupils equal round and reactive to light, extraocular movements intact, sclera anicteric, conjunctiva are normal. ENT: nares patent, oropharynx clear without exudates. Moist mucous membranes. NECK: Normal range of motion, supple without lymphadenopathy LUNGS: Breath sounds clear to auscultation bilaterally and equal. No wheezes rales or rhonchi. HEART: Regular rate and rhythm without murmurs ABDOMEN: Soft, nontender, normoactive bowel sounds. No guarding, no rebound. No masses appreciated. EXTREMITIES: Normal range of motion, no pitting or edema. No cyanosis. NEUROLOGICAL: Cranial nerves grossly intact. Normal speech, normal gait. Normal sensory and motor exams. PSYCH: Agitated but cooperative. SKIN: Multiple skin sores. Course - Re-evaluation Re-evalutation: Patient repeatedly denies any suicidal or homicidal ideation. Patient provided with a phone compressor station chief engineer for her phone so she could call a friend to come pick her up. Patient has no criteria for IVC at this time. Once again, offered her detox referral, but she refuses at this time. Pt has friend in ED and will take patient home. Given return precautions and she understands. Discharge - Discharge Clinical Impression: Substance abuse Condition: Stable Disposition: HOME, SELF-CARE Additional Instructions: ACUTE ALCOHOL INTOXICATION and ALCOHOL ABUSE: Your evaluation revealed very high levels of alcohol. You can from drinking a large amount of alcohol rapidly! Further, there's the risk of falls , traffic accidents, and fights. A high portion (about 50 percent) of the serious injuries seen in hospital emergency rooms are caused by alcohol. Alcohol overdosage is usually due to an underlying emotional or psychiatric problem. You may benefit from counselling. If "binge" drinking is an ongoing problem for you, or if you drink ANY AMOUNT of alcohol EVERY day, you most likely have a tendency to alcoholism. You should avoid alcohol totally. We can refer you for treatment. Persons with alcohol problems are often also prone to other addictions -- you should discuss any use of medications or drugs with the doctor. You should be watched at home for the next several hours by someone who has not been drinking. Get extra fluids for the next 24 hours. Call the doctor if there is repeated vomiting, increasing headache, decreasing level of alertness, or any other worsening. NARCOTIC / OPIOD ABUSE: Narcotics and opiods are pain-relieving drugs that are often abused. They are addicting. Narcotics cause euphoria, but it often takes increasing amounts to "feel good" and avoid withdrawal symptoms. Overdose of narcotics causes small pupils, coma, and decreased breathing. It's a common cause of . Purity of street narcotics is unpredictable. Injection of narcotics is risky for abscesses, endocarditis (heart infection), pneumonia, and AIDS. Withdrawal from narcotics causes goose bumps, watery mouth, sweating, nasal congestion, muscle aches, abdominal cramps, vomiting, and diarrhea. There 's often restlessness and confusion. Treatment programs are available, but you must make the decision to quit. Medication (such as clonidine) can be prescribed to control the symptoms of withdrawal. AMPHETAMINE / METHAMPHETAMINE ABUSE: Amphetamines are addicting stimulants. Amphetamines overstimulate the nervous system and give a false feeling of power and mastery. These drugs may be obtained as prescription pills for weight loss, narcolepsy, or attention- deficit disorder. More often they're bought as an illegal street drug, methamphetamine (crank, crystal, speed). Using amphetamines repeatedly can lead to serious medical problems including malnutrition, severe depression, and paranoia. It can take increasing amounts to feel good. Eventually, there will be a "burn out." When you go off amphetamines there is a period of depression that may last for weeks or even months. High doses of amphetamines can cause seizures, confusion, hallucinations, delusions, high blood pressure, muscle damage, heart damage, or sudden . Many times these deadly complications occur even with "normal" doses. Injection of amphetamines is risky for developing abscesses, endocarditis ( heart infection), pneumonia, and AIDS. Withdrawal from amphetamines often causes anxiety, depression, and drug cravings. Some users become paranoid and psychotic. There may be cramps, nausea , and vomiting. Many treatment programs are available, but you must make the decision to quit. Medication can be prescribed to control the symptoms of amphetamine toxicity (beta blockers or benzodiazepines). Withdrawal symptoms may require tranquilizers. OVERDOSE / INGESTION: You have taken more medication than you should have. After your evaluation and care, it is felt that your overdose is not likely to be harmful or of any significant consequences to you and you are being discharged. In the future, you should be careful not to take more medications than what is prescribed for you. Although your overdose does not seem to be of any danger to you at this time, if you develop any unusual or unexpected symptoms after your discharge, you should return to the Emergency Department immediately for re-evaluation. INSTRUCTIONS FOR HOME CARE FOLLOWING DRUG OVERDOSAGE: The doctor feels it's safe for you to go home. You will need to be observed. If charcoal and a laxative was given to you, expect some loose black stools soon. Take no medications unless approved by a physician, including alcohol. If drowsy, lie on your stomach or side for sleeping to avoid aspiration if vomiting occurs. Take only liquids by mouth until there is no more nausea. FOR THE OBSERVER: Observe the patient for the next 24 hours and call or go to the hospital if any of the following are noted: prolonged or repeated vomiting, difficulty in arousing, convulsions (seizures or fits), fever, persistent cough, breathing that is too slow or too rapid, or confused or bizarre behavior. If a counselling visit has been arranged, make sure the patient attends. Call the physician or poison control if you have questions. FOLLOW-UP CARE: If you have been referred to a physician for follow-up care, call the physician s office for an appointment as you were instructed or within the next two days. If you experience worsening or a significant change in your symptoms, notify the physician immediately or return to the Emergency Department at any time for re-evaluation. Referrals: [facility] [Outside] - Follow up as needed
[2017-01-26] MEDS ORDERED: HALOPERIDOL 5 MG TABLET PO ONE (03:29)
== END 2017-01-26 04:20 | disposition home or self-care (01) ==
LOC: ER 03:15
DX: F11.10 Opioid abuse, uncomplicated (principal); F13.10 Sedative, hypnotic or anxiolytic abuse, uncomplicated; L98.9 Disorder of the skin and subcutaneous tissue, unspecified; E10.9 Type 1 diabetes mellitus without complications; J45.909 Unspecified asthma, uncomplicated; F17.200 Nicotine dependence, unspecified, uncomplicated; Z88.1 Allergy status to other antibiotic agents; Z87.892 Personal history of anaphylaxis; Z88.8 Allergy status to other drugs, medicaments and biological substances
CPT/HCPCS: 99284

== ENCOUNTER 2017-01-26 05:30 | Emergency (ER) | payer SELFPAY ==
--- NOTE | 2017-01-26 08:49 | ER Document Report ---
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 Patient was given the option to check back into the emergency department will be arrested and she chose to check back in. She has no different complaints at this time. She states that she is not withdrawing and she does not want to detox. TRAVEL OUTSIDE OF THE [place] IN LAST 30 DAYS: No - Related Data Allergies/Adverse Reactions: infliximab [From Remicade] Allergy (Severe, Verified 01/25/17 15:31) Anaphylaxis clindamycin [Clindamycin] Allergy (Verified 01/25/17 15:31) sulfamethoxazole [From Bactrim] Allergy (Verified 01/25/17 15:31) trimethoprim [From Bactrim] Allergy (Verified 01/25/17 15:31) codeine [Codeine] Adverse Reaction (Mild, Verified 01/25/17 15:31) NSAIDS (Non-Steroidal Anti-Inflamma Adverse Reaction (Verified 01/25/17 15:31) Past Medical History - General Information source: Patient - Social History Smoking Status: Current Every Day Smoker Family History: Reviewed & Not Pertinent, COPD, DM, Malignancy - Past Medical History Cardiac Medical History: Denies: Hx Coronary Artery Disease, Hx Heart Attack, Hx Hypertension Pulmonary Medical History: Reports: Hx Asthma Denies: Hx Bronchitis, Hx COPD, Hx Pneumonia Neurological Medical History: Reports: Hx Migraine, Hx Seizures - BLOOD SUGAR GOT TOO LOW. Denies: Hx Cerebrovascular Accident Endocrine Medical History: Reports: Hx Diabetes Mellitus Type 1 Renal/ Medical History: Denies: Hx Peritoneal Dialysis GI Medical History: Reports: Hx Gastroesophageal Reflux Disease, Hx Ulcerative Colitis Musculoskeltal Medical History: Denies Hx Arthritis, Reports Hx Fibromyalgia, Reports Hx Musculoskeletal Trauma Psychiatric Medical History: Reports: Hx Anxiety, Hx Depression Traumatic Medical History: Reports: Hx Fractures Past Surgical History: Reports: Hx Section - x1, Hx Tubal Ligation. Denies: Hx Pacemaker - Immunizations Hx Diphtheria, Pertussis, Tetanus Vaccination: Yes Review of Systems - Review of Systems Constitutional: See HPI EENT: No symptoms reported Cardiovascular: No symptoms reported Respiratory: No symptoms reported Gastrointestinal: No symptoms reported Genitourinary: No symptoms reported Female Genitourinary: No symptoms reported Musculoskeletal: No symptoms reported Skin: No symptoms reported Hematologic/Lymphatic: No symptoms reported Neurological/Psychological: See HPI Physical Exam - Vital signs Vitals: Temp Pulse Resp BP Pulse Ox 99.7 F 110 H 18 118/68 94 01/26/17 05:39 01/26/17 05:39 01/26/17 05:39 01/26/17 05:39 01/26/17 05:39 - Notes Notes: PHYSICAL EXAMINATION: GENERAL: diaphoretic, but sleeping, easily arousable, and in no acute distress. HEAD: Atraumatic, normocephalic. EYES: Pupils equal round and reactive to light, extraocular movements intact, sclera anicteric, conjunctiva are normal. ENT: ear canals without erythema or foreign body, TMs pearly santos with good bony landmarks, nares patent, oropharynx clear without exudates. Moist mucous membranes. NECK: Normal range of motion, supple without lymphadenopathy LUNGS: CTAB and equal. No wheezes rales or rhonchi. HEART: Regular rate and rhythm without murmurs ABDOMEN: Soft, no tenderness. No guarding, no rebound EXTREMITIES: Normal range of motion, no pitting edema. No cyanosis. NEUROLOGICAL: Cranial nerves grossly intact. Normal sensory/motor exams. PSYCH: obviously under the influence but answers questions appropriately and easily arousable SKIN: Warm, Dry, normal turgor, no rashes or lesions noted Course - Re-evaluation Re-evalutation: 01/26/17 08:47 pt is diaphoretic, but vitals are all stable with normal pulse, 89bpm and pt does not want detox or to withdraw. pt only checked in so she wasn't arrested. she is stable for discharge. - Vital Signs Vital signs: Temp Pulse Resp BP Pulse Ox 99.7 F 110 H 18 118/68 94 01/26/17 05:39 01/26/17 05:39 01/26/17 05:39 01/26/17 05:39 01/26/17 05:39 Discharge - Discharge Clinical Impression: Substance abuse Condition: Stable Disposition: HOME, SELF-CARE Additional Instructions: please seek help to stop using heroin. Return immediately for any new or worsening symptoms. Follow up with primary care provider, call tomorrow to make followup appointment. Referrals: [facility] [Provider Group] - Follow up as needed
[2017-01-26 09:13] VITALS: BP 108/88
== END 2017-01-26 09:15 | disposition home or self-care (01) ==
LOC: ER 05:30
DX: F11.20 Opioid dependence, uncomplicated (principal); R61 Generalized hyperhidrosis; E10.9 Type 1 diabetes mellitus without complications; J45.909 Unspecified asthma, uncomplicated; F17.200 Nicotine dependence, unspecified, uncomplicated; Z88.1 Allergy status to other antibiotic agents; Z87.892 Personal history of anaphylaxis; Z88.8 Allergy status to other drugs, medicaments and biological substances
CPT/HCPCS: 99283

== ENCOUNTER 2017-08-15 16:51 | Inpatient (IN) | payer SELFPAY ==
--- NOTE | 2017-08-15 18:10 | ER Document Report ---
ED Medical Screen (RME) - General Chief Complaint: Arm Pain Stated Complaint: ARM PAIN Time Seen by Provider: 08/15/17 18:06 Mode of Arrival: Ambulatory Information source: Patient TRAVEL OUTSIDE OF THE [place] IN LAST 30 DAYS: No - HPI Patient complains to provider of: arm infection Onset: Other - pt. states she is a type 1 DM pt. who has been out of her insulin for several days who has been developing redness and pain of her R wrist and L elbow. - Related Data Allergies/Adverse Reactions: infliximab [From Remicade] Allergy (Severe, Verified 08/15/17 16:55) Anaphylaxis clindamycin [Clindamycin] Allergy (Verified 08/15/17 16:55) sulfamethoxazole [From Bactrim] Allergy (Verified 08/15/17 16:55) trimethoprim [From Bactrim] Allergy (Verified 08/15/17 16:55) codeine [Codeine] Adverse Reaction (Mild, Verified 08/15/17 16:55) NSAIDS (Non-Steroidal Anti-Inflamma Adverse Reaction (Verified 08/15/17 16:55) Past Medical History - Social History Chew tobacco use (# tins/day): No Frequency of alcohol use: None Drug Abuse: None - Past Medical History Cardiac Medical History: Denies: Hx Coronary Artery Disease, Hx Heart Attack, Hx Hypertension Pulmonary Medical History: Reports: Hx Asthma Denies: Hx Bronchitis, Hx COPD, Hx Pneumonia Neurological Medical History: Reports: Hx Migraine, Hx Seizures - BLOOD SUGAR GOT TOO LOW. Denies: Hx Cerebrovascular Accident Endocrine Medical History: Reports: Hx Diabetes Mellitus Type 1 Renal/ Medical History: Denies: Hx Peritoneal Dialysis GI Medical History: Reports: Hx Gastroesophageal Reflux Disease, Hx Ulcerative Colitis Musculoskeltal Medical History: Denies Hx Arthritis, Reports Hx Fibromyalgia, Reports Hx Musculoskeletal Trauma Psychiatric Medical History: Reports: Hx Anxiety, Hx Depression Traumatic Medical History: Reports: Hx Fractures Past Surgical History: Reports: Hx Section - x1, Hx Tubal Ligation. Denies: Hx Pacemaker - Immunizations Hx Diphtheria, Pertussis, Tetanus Vaccination: Yes Physical Exam - Vital signs Vitals: Temp Pulse Resp BP Pulse Ox 98.8 F 89 18 114/86 H 97 08/15/17 16:57 08/15/17 16:57 08/15/17 16:57 08/15/17 16:57 08/15/17 16:57 Course - Vital Signs Vital signs: Temp Pulse Resp BP Pulse Ox 98.8 F 89 18 114/86 H 97 08/15/17 16:57 08/15/17 16:57 08/15/17 17:55 08/15/17 16:57 08/15/17 16:57
[2017-08-15 19:13] LABS: ABSOLUTE BASOPHILS # (AUTO) 0.1 10^3/uL (0.0-0.2); ABSOLUTE EOSINOPHILS # (AUTO) 0.2 10^3/uL (0.0-0.6); ABSOLUTE LYMPHOCYTES (AUTO) 1.6 10^3/uL (0.5-4.7); ABSOLUTE MONOCYTES (AUTO) 0.6 10^3/uL (0.1-1.4); ABSOLUTE NEUT (AUTO) 10.3 10^3/uL (1.7-8.2); BASOPHILS % (AUTO) 0.5 % (0-2); EOSINOPHILS % (AUTO) 1.8 % (0-6); HEMATOCRIT 40.6 % (36.0-47.0); HEMOGLOBIN 14.2 g/dL (12.0-15.5); LYMPHOCYTES % (AUTO) 12.6 % (13-45); MEAN CORPUSCULAR HEMOGLOBIN 31.2 pg (27.0-33.4); MEAN CORPUSCULAR HGB CONC 34.9 g/dL (32.0-36.0); MEAN CORPUSCULAR VOLUME 90 fl (80-97); MONOCYTES % (AUTO) 4.8 % (3-13); PLATELET COUNT 342 10^3/uL (150-450); RED BLOOD COUNT 4.54 10^6/uL (3.72-5.28); RED CELL DISTRIBUTION WIDTH 13.3 % (11.5-14.0); SEGMENTED NEUTROPHILS % (AUTO) 80.3 % (42-78); TOTAL CELLS COUNTED % (AUTO) 100 %; WHITE BLOOD COUNT 12.8 10^3/uL (4.0-10.5)
[2017-08-15 19:23] LABS: APPEARANCE,URINE SLIGHTLY-CLOUDY; BILIRUBIN,URINE NEGATIVE (NEGATIVE); COLOR,URINE YELLOW; GLUCOSE, URINE >=500 mg/dL (NEGATIVE); KETONES,URINE NEGATIVE (NEGATIVE); LEUKOCYTE ESTERASE,URINE LARGE (NEGATIVE); NITRITE,URINE NEGATIVE (NEGATIVE); PROTEIN,URINE NEGATIVE (NEGATIVE); URINE SPECIFIC GRAVITY 1.013
[2017-08-15 19:31] LABS: ALANINE AMINOTRANSFERASE 29 U/L (9-52); ALBUMIN 4.1 g/dL (3.5-5.0); ALKALINE PHOSPHATASE 127 U/L (38-126); ANION GAP 10 (5-19); ASPARTATE AMINO TRANSFERASE 30 U/L (14-36); BILIRUBIN,DIRECT 0.3 mg/dL (0.0-0.4); BILIRUBIN,TOTAL 0.8 mg/dL (0.2-1.3); BLOOD UREA NITROGEN 7 mg/dL (7-20); CALCIUM 9.9 mg/dL (8.4-10.2); CARBON DIOXIDE 27 mmol/L (22-30); CHLORIDE 96 mmol/L (98-107); GLUCOSE 250 mg/dL (75-110); POTASSIUM 4.1 mmol/L (3.6-5.0); SODIUM 133.1 mmol/L (137-145); TOTAL PROTEIN 7.5 g/dL (6.3-8.2)
--- NOTE | 2017-08-15 19:48 | ER Document Report ---
ED General - General Chief Complaint: Arm Pain Stated Complaint: ARM PAIN Time Seen by Provider: 08/15/17 18:06 Mode of Arrival: Ambulatory Information source: Patient Notes: 32-year-old female heroin user presents with complaints of unctrolled diabetes since shes been off her insulin as well as cellulitis of the bilateral arms of a few dya duration after injecting heroin. Patient admits to fevers chills TRAVEL OUTSIDE OF THE [place] IN LAST 30 DAYS: No - HPI Onset: Last week Onset/Duration: Persistent Quality of pain: Sharp Severity: Mild Pain Level: 1 Associated symptoms: Other Exacerbated by: Denies Relieved by: Denies Similar symptoms previously: Yes Recently seen / treated by doctor: No - Related Data Allergies/Adverse Reactions: infliximab [From Remicade] Allergy (Severe, Verified 08/15/17 16:55) Anaphylaxis clindamycin [Clindamycin] Allergy (Verified 08/15/17 16:55) sulfamethoxazole [From Bactrim] Allergy (Verified 08/15/17 16:55) trimethoprim [From Bactrim] Allergy (Verified 08/15/17 16:55) codeine [Codeine] Adverse Reaction (Mild, Verified 08/15/17 16:55) NSAIDS (Non-Steroidal Anti-Inflamma Adverse Reaction (Verified 08/15/17 16:55) Past Medical History - General Information source: Patient - Social History Smoking Status: Current Every Day Smoker Cigarette use (# per day): Yes Chew tobacco use (# tins/day): No Smoking Education Provided: No Frequency of alcohol use: None Drug Abuse: None Family History: Reviewed & Not Pertinent, COPD, DM, Malignancy Patient has suicidal ideation: No Patient has homicidal ideation: No - Past Medical History Cardiac Medical History: Denies: Hx Coronary Artery Disease, Hx Heart Attack, Hx Hypertension Pulmonary Medical History: Reports: Hx Asthma Denies: Hx Bronchitis, Hx COPD, Hx Pneumonia Neurological Medical History: Reports: Hx Migraine, Hx Seizures - BLOOD SUGAR GOT TOO LOW. Denies: Hx Cerebrovascular Accident Endocrine Medical History: Reports: Hx Diabetes Mellitus Type 1 Renal/ Medical History: Denies: Hx Peritoneal Dialysis GI Medical History: Reports: Hx Gastroesophageal Reflux Disease, Hx Ulcerative Colitis Musculoskeltal Medical History: Denies Hx Arthritis, Reports Hx Fibromyalgia, Reports Hx Musculoskeletal Trauma Psychiatric Medical History: Reports: Hx Anxiety, Hx Depression Traumatic Medical History: Reports: Hx Fractures Past Surgical History: Reports: Hx Section - x1, Hx Tubal Ligation. Denies: Hx Pacemaker - Immunizations Hx Diphtheria, Pertussis, Tetanus Vaccination: Yes Review of Systems - Review of Systems Notes: REVIEW OF SYSTEMS: CONSTITUTIONAL : Denies fever, chills, or sweats. Denies recent illness. EENT: Denies eye, ear, throat, or mouth pain or symptoms. Denies nasal or sinus congestion or discharge. Denies throat, tongue, or mouth swelling or difficulty swallowing. CARDIOVASCULAR: Denies chest pain. Denies palpitations or racing or irregular heart beat. Denies ankle edema. RESPIRATORY: Denies cough, cold, or chest congestion. Denies shortness of breath, difficulty breathing, or wheezing. GASTROINTESTINAL: Denies abdominal pain or distention. Denies nausea, vomiting , or diarrhea. Denies blood in vomitus, stools, or per rectum. Denies black, tarry stools. Denies constipation. GENITOURINARY: Denies difficulty urinating, painful urination, burning, frequency, blood in urine, or discharge. FEMALE GENITOURINARY: Denies vaginal bleeding, heavy or abnormal periods, irregular periods. Denies vaginal discharge or odor. MUSCULOSKELETAL: Denies back or neck pain or stiffness. Denies joint pain or swelling. SKIN: admits to rash of arms HEMATOLOGIC : Denies easy bruising or bleeding. LYMPHATIC: Denies swollen, enlarged glands. NEUROLOGICAL: Denies confusion or altered mental status. Denies passing out or loss of consciousness. Denies dizziness or lightheadedness. Denies headache. Denies weakness or paralysis or loss of use of either side. Denies problems with gait or speech. Denies sensory loss, numbness, or tingling. Denies seizures. PSYCHIATRIC: Denies anxiety or stress. Denies depression, suicidal ideation, or homicidal ideation. ALL OTHER SYSTEMS REVIEWED AND NEGATIVE. PHYSICAL EXAMINATION: GENERAL: Well-appearing, well-nourished and in no acute distress. HEAD: Atraumatic, normocephalic. EYES: Pupils equal round and reactive to light, extraocular movements intact, conjunctiva are normal. ENT: Nares patent, oropharynx clear without exudates. Moist mucous membranes. NECK: Normal range of motion, supple without lymphadenopathy LUNGS: Breath sounds clear to auscultation bilaterally and equal. No wheezes rales or rhonchi. HEART: Regular rate and rhythm without murmurs ABDOMEN: Soft, nontender, nondistended abdomen. No guarding, no rebound. No masses appreciated. Female : deferred Musculoskeletal: Normal range of motion, no pitting or edema. No cyanosis. NEUROLOGICAL: Cranial nerves grossly intact. Normal speech, normal gait. Normal sensory, motor exams PSYCH: Normal mood, normal affect. SKIN: cellulitis of the bilteral arms with streaking Dictation was performed using [employer] voice recognition software Physical Exam - Vital signs Vitals: Temp Pulse Resp BP Pulse Ox 98.8 F 89 18 114/86 H 97 08/15/17 16:57 08/15/17 16:57 08/15/17 16:57 08/15/17 16:57 08/15/17 16:57 Course - Re-evaluation Re-evalutation: 08/15/17 20:02 Patient's blood sugars noted to be 250, there is obvious cellulitis component bilateral arms, patient's primary care physician has been contacted for admission purposes - Vital Signs Vital signs: Temp Pulse Resp BP Pulse Ox 98.8 F 89 18 114/86 H 97 08/15/17 16:57 08/15/17 16:57 08/15/17 17:55 08/15/17 16:57 08/15/17 16:57 - Laboratory Result Diagrams: 08/15/17 18:50 08/15/17 18:50 Laboratory results interpreted by me: 08/15/17 08/15/17 08/15/17 18:50 18:50 18:50 WBC 12.8 H Seg Neutrophils % 80.3 H Lymphocytes % 12.6 L Absolute Neutrophils 10.3 H Sodium 133.1 L Chloride 96 L Glucose 250 H Alkaline Phosphatase 127 H Urine Glucose (UA) >=500 H Urine Urobilinogen 4.0 H Ur Leukocyte Esterase LARGE H Discharge - Discharge Clinical Impression: Cellulitis, Diabetes Condition: Fair Disposition: ADMITTED INPATIENT Admitting Provider: Hospitalist
[2017-08-15] MEDS ORDERED: PIPERACILLIN/TAZOBACTAM 3.375 GM VIAL IV ONE (19:52)
[2017-08-15] MEDS ORDERED: VANCOMYCIN HCL INJ 1000 MG VIAL IV ONE (19:52)
[2017-08-15] MEDS ORDERED: NORMAL SALINE 1000 ML 1,000 ML IV ONE (20:23)
[2017-08-15] MEDS ORDERED: DEXTROSE 40% GEL 15 GM TUBE PO PRN ×2 (20:30)
[2017-08-15] MEDS ORDERED: GLUCAGON,HUMAN RECOMB 1 MG INJ IM PRN (20:30)
[2017-08-15] MEDS ORDERED: DEXTROSE 50%-WATER 25 GM/50 ML DISP.SYRIN IV PRN ×2 (20:30)
[2017-08-15] MEDS ORDERED: PROMETHAZINE HCL INJ 25 MG/1 ML VIAL IV PRN (21:04)
[2017-08-15] MEDS ORDERED: MAG HYDROX/AL HYDROX/SIMETH SUSP 30 ML UDCUP PO PRN (21:04)
[2017-08-15] MEDS ORDERED: ACETAMINOPHEN 325 MG TABLET PO PRN (21:04)
[2017-08-15] MEDS ORDERED: MAGNESIUM HYDROXIDE SUSP 30 ML UDCUP PO PRN (21:04)
[2017-08-15] MEDS ORDERED: LEVALBUTEROL HCL NEB 1.25 MG/3 ML AMPUL NEB PRN (21:04)
[2017-08-15] MEDS ORDERED: NALBUPHINE HCL INJ 10 MG/1 ML AMPULE INJ ONE (21:15)
[2017-08-15] MEDS ORDERED: KETOROLAC TROMETHAMINE INJ/PF 30 MG/1 ML SDV IV ONE (21:15)
[2017-08-15 21:18] LABS: URINE BARBITURATES SCREEN NEGATIVE; URINE BENZODIAZEPINES SCREEN UNCONFIRMED POSITIVE; URINE COCAINE SCREEN NEGATIVE; URINE MARIJUANA (THC) SCREEN NEGATIVE; URINE METHADONE SCREEN NEGATIVE; URINE PHENCYCLIDINE SCREEN NEGATIVE
[2017-08-15] MEDS ORDERED: NALBUPHINE HCL INJ 10 MG/1 ML AMPULE INJ PRN (21:23)
[2017-08-15] MEDS ORDERED: VANCOMYCIN HCL 0 MG in DEXTROSE 5%-WATER 250 ML IV NR (21:30)
[2017-08-15] MEDS ORDERED: PHARMACY COMMUNICATION ORDER MC NR (21:30)
--- NOTE | 2017-08-15 21:56 | PDOC H&P ---
History of Present Illness Admission Date/PCP: 08/15/17 20:22 Patient complains of: Pain in the left forearm History of Present Illness: ИВАН MONTELONGO is a 32 year old female with long-standing heroin addiction. She relates that she has been injecting into her wrists and forearms. She developed redness and swelling at the sites of injection. Her diabetes then became uncontrolled. She presented to the emergency room. Here she was evaluated and started on vancomycin. The patient's preference is to receive Dilaudid and be discharged on doxycycline. Past Medical History Cardiac Medical History: Denies: Coronary Artery Disease, Myocardial Infarction, Hypertension Pulmonary Medical History: Reports: Asthma Denies: Bronchitis, Chronic Obstructive Pulmonary Disease (COPD), Pneumonia Endocrine Medical History: Reports: Diabetes Mellitus Type 1 Renal/ Medical History: Reports: Other - Interstitial cystitis GI Medical History: Reports: Gastroesophageal Reflux Disease, Ulcerative Colitis Musculoskeltal Medical History: Reports: Fibromyalgia Denies: Arthritis Psychiatric Medical History: Reports: Depression, Substance Abuse Hematology: Reports: Anemia Past Surgical History Past Surgical History: Reports: Section - x1, Tubal Ligation Denies: Pacemaker Social History Information Source: Patient Smoking Status: Current Every Day Smoker Frequency of Alcohol Use: Occasional Hx Recreational Drug Use: Yes Drugs: Heroin Hx Prescription Drug Abuse: Yes - Advance Directive Resuscitation Status: Full Code Surrogate healthcare decision maker:: Patient does not have a durable power of Script Reader for healthcare Family History Family History: COPD, DM, Malignancy Parental Family History Reviewed: Yes Children Family History Reviewed: Yes Sibling(s) Family History Reviewed.: Yes Medication/Allergy Home Medications: Oxycodone HCl [Oxycodone HCl 10 MG Tablet] 5 mg PO Q6H PRN #14 tablet 07/10/16 Oxycodone HCl/Acetaminophen [Percocet 5-325 mg Tablet] 1 - 2 tab PO Q4H PRN #15 tablet 07/10/16 Penicillin V Potassium [Penicillin Vk 500 mg Tablet] 500 mg PO Q6 #40 tablet Oxycodone HCl 5 mg PO Q4HP PRN #14 capsule 07/17/16 Penicillin V Potassium [Penicillin Vk 500 mg Tablet] 500 mg PO QID #40 tablet Allergies/Adverse Reactions: infliximab [From Remicade] Allergy (Severe, Verified 08/15/17 16:55) Anaphylaxis clindamycin [Clindamycin] Allergy (Verified 08/15/17 16:55) sulfamethoxazole [From Bactrim] Allergy (Verified 08/15/17 16:55) trimethoprim [From Bactrim] Allergy (Verified 08/15/17 16:55) codeine [Codeine] Adverse Reaction (Mild, Verified 08/15/17 16:55) NSAIDS (Non-Steroidal Anti-Inflamma Adverse Reaction (Verified 08/15/17 16:55) Review of Systems Constitutional: PRESENT: chills, fever(s), headache(s) Eyes: ABSENT: visual disturbances Ears: ABSENT: hearing changes Cardiovascular: ABSENT: chest pain, dyspnea on exertion, edema, orthropnea, palpitations Respiratory: ABSENT: cough, hemoptysis Gastrointestinal: ABSENT: abdominal pain, constipation, diarrhea, hematemesis, hematochezia, nausea, vomiting Genitourinary: ABSENT: dysuria, hematuria Musculoskeletal: PRESENT: as per HPI, joint swelling Integumentary: PRESENT: as per HPI, erythema Neurological: ABSENT: abnormal gait, abnormal speech, confusion, dizziness, focal weakness, syncope Psychiatric: PRESENT: anxiety. ABSENT: depression, homidical ideation, suicidal ideation Endocrine: PRESENT: other - Poorly controlled diabetes Hematologic/Lymphatic: ABSENT: easy bleeding, easy bruising Physical Exam Vital Signs: Temp Pulse Resp BP Pulse Ox 102.4 F H 91 18 110/67 97 08/15/17 21:06 08/15/17 21:06 08/15/17 21:06 08/15/17 21:06 08/15/17 21:06 General appearance: PRESENT: no acute distress, cooperative, well-developed, well-nourished Head exam: PRESENT: atraumatic, normocephalic Eye exam: PRESENT: conjunctiva pink, EOMI, PERRLA. ABSENT: scleral icterus Ear exam: PRESENT: normal external ear exam Mouth exam: PRESENT: moist, tongue midline Neck exam: ABSENT: carotid bruit, JVD, lymphadenopathy, thyromegaly Respiratory exam: PRESENT: clear to auscultation brandon. ABSENT: rales, rhonchi, wheezes Cardiovascular exam: PRESENT: RRR. ABSENT: diastolic murmur, rubs, systolic murmur GI/Abdominal exam: PRESENT: normal bowel sounds, soft. ABSENT: distended, guarding, mass, organolmegaly, rebound, tenderness Rectal exam: PRESENT: deferred Extremities exam: PRESENT: other - Swelling and redness of the right wrist swelling redness and induration of the left forearm Neurological exam: PRESENT: alert, awake, oriented to person, oriented to place , oriented to time, oriented to situation, CN II-XII grossly intact. ABSENT: motor sensory deficit Psychiatric exam: PRESENT: anxious, appropriate affect, normal mood. ABSENT: homicidal ideation, suicidal ideation Skin exam: PRESENT: dry, intact, warm, other - except as noted above. ABSENT : cyanosis, rash Adult Front & Back Image: 1 - erythema 2 - erythema warmth induration Results Laboratory Results: 08/15/17 08/15/17 08/15/17 18:50 18:50 18:50 WBC 12.8 H Hgb 14.2 Hct 40.6 Plt Count 342 Sodium 133.1 L Potassium 4.1 Chloride 96 L Carbon Dioxide 27 Anion Gap 10 BUN 7 Creatinine 0.61 Glucose 250 H POC Glucose Calcium 9.9 AST 30 ALT 29 Alkaline Phosphatase 127 H Total Protein 7.5 Albumin 4.1 Urine Glucose (UA) >=500 H Urine Urobilinogen 4.0 H Ur Leukocyte Esterase LARGE H Urine WBC (Auto) 14 Urine RBC (Auto) 14 Urine Opiates Screen Urine Methadone Screen Ur Barbiturates Screen Ur Phencyclidine Scrn U Benzodiazepines Scrn Urine Cocaine Screen U Marijuana (THC) Screen 08/15/17 08/15/17 18:50 20:57 WBC Hgb Hct Plt Count Sodium Potassium Chloride Carbon Dioxide Anion Gap BUN Creatinine Glucose POC Glucose 211 H Calcium AST ALT Alkaline Phosphatase Total Protein Albumin Urine Glucose (UA) Urine Urobilinogen Ur Leukocyte Esterase Urine WBC (Auto) Urine RBC (Auto) Urine Opiates Screen UNCONFIRMED POSITIVE Urine Methadone Screen NEGATIVE Ur Barbiturates Screen NEGATIVE Ur Phencyclidine Scrn NEGATIVE U Benzodiazepines Scrn UNCONFIRMED POSITIVE Urine Cocaine Screen NEGATIVE U Marijuana (THC) Screen NEGATIVE Assessment & Plan - Diagnosis (1) Cellulitis Qualifiers: Site of cellulitis: extremity Site of cellulitis of extremity: upper extremity Laterality: unspecified laterality Qualified Code(s): L03.119 - Cellulitis of unspecified part of limb Is this a current diagnosis for this admission?: Yes (2) Heroin abuse Is this a current diagnosis for this admission?: Yes (3) Ulcerative colitis without complications Qualifiers: Ulcerative colitis location: unspecified ulcerative colitis location Qualified Code(s): K51.90 - Ulcerative colitis, unspecified, without complications Is this a current diagnosis for this admission?: Yes (4) Interstitial cystitis (chronic) without hematuria Is this a current diagnosis for this admission?: Yes (5) Chronic pain associated with significant psychosocial dysfunction Is this a current diagnosis for this admission?: Yes (6) Diabetes Qualifiers: Diabetes mellitus type: type 2 Diabetes mellitus complication status: with unspecified complications Diabetes mellitus terminal makeup operator insulin use: unspecified terminal makeup operator insulin use status Qualified Code(s): E11.8 - Type 2 diabetes mellitus with unspecified complications Is this a current diagnosis for this admission?: Yes - Time Time Spent: 30 to 50 Minutes - Inpatient Certification Based on my medical assessment, after consideration of the patient's comorbidities, presenting symptoms, or acuity I expect that the services needed warrant INPATIENT care.: Yes I certify that my determination is in accordance with my understanding of Medicare's requirements for reasonable and necessary INPATIENT services [42 CFR 412.3e].: Yes Medical Necessity: Significant Comorbidiites Make Outpatient Treatment Too Risky , Need Close Monitoring Due to Risk of Patient Decompensation, Need for Pain Control, Need for IV Antibiotics, Need for Surgery, Risk of Complication if Not Cared For in Hospital - Plan Summary Plan Summary: Patient will be admitted to hospital. She will be continued on vancomycin and ciprofloxacin. We will try to continue to control her pain without the use of controlled substances. Patient threatened to sign out if she was not given Dilaudid. She was advised that that is her right to seek care elsewhere if she so desires. We reassured her that we would address her pain. Patient will need to see a counselor prior to discharge. She will receive sliding scale insulin for now. She may require long-acting insulin in the future. She will have DVT prophylaxis with low molecular weight heparin. Anticipated length of stay is more than 2 midnights
[2017-08-15] MEDS: CLONAZEPAM 1 MG TABLET PO PRN (22:53)
[2017-08-15] MEDS: FAMOTIDINE 20 MG TABLET PO SCH (22:53)
[2017-08-15] MEDS ORDERED: NALBUPHINE HCL INJ 10 MG/1 ML AMPULE ONE (23:12)
[2017-08-16] MEDS: KETOROLAC TROMETHAMINE INJ/PF 30 MG/1 ML SDV IV SCH ×5 (00:03→23:42)
[2017-08-16] MEDS: CIPROFLOXACIN 400 MG/D5W RTU 400 MG/200 ML RTUPB IV SCH ×3 (01:51→22:19)
[2017-08-16] MEDS: ZOLPIDEM TARTRATE 5 MG TABLET PO PRN (02:09)
[2017-08-16 06:06] LABS: ABSOLUTE EOSINOPHILS # (AUTO) 0.2 10^3/uL (0.0-0.6); ABSOLUTE LYMPHOCYTES (AUTO) 1.7 10^3/uL (0.5-4.7); ABSOLUTE MONOCYTES (AUTO) 0.5 10^3/uL (0.1-1.4); BASOPHILS % (AUTO) 0.6 % (0-2); EOSINOPHILS % (AUTO) 3.1 % (0-6); HEMATOCRIT 38.3 % (36.0-47.0); LYMPHOCYTES % (AUTO) 23.1 % (13-45); MEAN CORPUSCULAR HEMOGLOBIN 31.3 pg (27.0-33.4); MEAN CORPUSCULAR HGB CONC 33.9 g/dL (32.0-36.0); MEAN CORPUSCULAR VOLUME 92 fl (80-97); MONOCYTES % (AUTO) 6.9 % (3-13); PLATELET COUNT 158 10^3/uL (150-450); RED BLOOD COUNT 4.15 10^6/uL (3.72-5.28); RED CELL DISTRIBUTION WIDTH 13.1 % (11.5-14.0); SEGMENTED NEUTROPHILS % (AUTO) 66.3 % (42-78); TOTAL CELLS COUNTED % (AUTO) 100 %; WHITE BLOOD COUNT 7.6 10^3/uL (4.0-10.5)
[2017-08-16 06:15] LABS: ANION GAP 5 (5-19); BLOOD UREA NITROGEN 9 mg/dL (7-20); CALCIUM 8.5 mg/dL (8.4-10.2); CARBON DIOXIDE 31 mmol/L (22-30); CHLORIDE 100 mmol/L (98-107); GLUCOSE 359 mg/dL (75-110); SODIUM 136.1 mmol/L (137-145)
[2017-08-16] MEDS ORDERED: NICOTINE 21 MG/24 HR PATCH.TD24 TD ONE (09:33)
[2017-08-16] MEDS: DOCUSATE SODIUM 100 MG CAPSULE PO SCH (09:45)
[2017-08-16] MEDS: FAMOTIDINE 20 MG TABLET PO SCH ×2 (09:45→21:42)
[2017-08-16] MEDS ORDERED: NICOTINE 21 MG/24 HR PATCH.TD24 TD SCH ×2 (09:45→11:00)
[2017-08-16] MEDS ORDERED: (PENDING PHARMACY ID) (Citalopram Hydrobromide [Celexa 40 Mg Tablet] 1 TAB) PO SCH (10:00)
[2017-08-16] MEDS ORDERED: ENOXAPARIN SODIUM INJ 40 MG/0.4 ML DISP.SYRIN SUBCUT SCH (10:00)
[2017-08-16] MEDS: VANCOMYCIN HCL 750 MG in DEXTROSE 5%-WATER 250 ML IV SCH ×2 (10:46→17:56)
[2017-08-16] MEDS ORDERED: CITALOPRAM HYDROBROMIDE 20 MG TABLET PO SCH (11:00)
[2017-08-16] MEDS: INSULIN LISPRO 100 UNIT/ML 3 ML VIAL SUBCUT PRN ×3 (11:46→22:20)
[2017-08-16] MEDS: ALPRAZOLAM 0.5 MG TABLET PO PRN ×2 (11:47→22:33)
[2017-08-16] MEDS: CLONAZEPAM 1 MG TABLET PO PRN (13:35)
[2017-08-16] MEDS: GABAPENTIN 300 MG CAPSULE PO SCH ×2 (13:35→21:42)
--- NOTE | 2017-08-16 14:22 | PDOC PROGRESS REPORT ---
Subjective Progress Note for:: 08/16/17 Subjective:: Patient seen on rounds. She is in bed sleeping. She awakens easily to her name. She denies any shortness of breath, chest pain or dyspnea. She denies any cough. She denies any nausea, vomiting, or abdominal pain. She denies any fevers or chills overnight. She is continuing to have intermittent pain in both forearms areas of cellulitis. She states the current pain medicine is not completely relieving it. She is asking for Dilaudid. She denies any significant arthralgias or myalgias. Reason For Visit: CELLULITIS Physical Exam Vital Signs: Temp Pulse Resp BP Pulse Ox 97.5 F 62 18 107/71 94 08/16/17 08:48 08/16/17 08:48 08/16/17 08:48 08/16/17 08:48 08/16/17 08:48 General appearance: PRESENT: no acute distress, thin, well-developed, well- nourished Head exam: PRESENT: atraumatic, normocephalic Eye exam: PRESENT: conjunctiva pink, EOMI, PERRLA. ABSENT: scleral icterus Ear exam: PRESENT: normal external ear exam Mouth exam: PRESENT: moist, tongue midline Teeth exam: PRESENT: poor dentation Neck exam: ABSENT: carotid bruit, JVD, lymphadenopathy, thyromegaly Respiratory exam: PRESENT: clear to auscultation brandon. ABSENT: rales, rhonchi, wheezes Cardiovascular exam: PRESENT: bradycardia Pulses: PRESENT: normal dorsalis pedis pul Vascular exam: PRESENT: normal capillary refill GI/Abdominal exam: PRESENT: normal bowel sounds, soft. ABSENT: distended, guarding, mass, organolmegaly, rebound, tenderness Rectal exam: PRESENT: deferred Extremities exam: PRESENT: full ROM, tenderness, +1 edema, other Musculoskeletal exam: PRESENT: ambulatory, full ROM, tenderness - Bilateral forearms Neurological exam: PRESENT: alert, awake, oriented to person, oriented to place , oriented to time, oriented to situation, CN II-XII grossly intact. ABSENT: motor sensory deficit Psychiatric exam: PRESENT: anxious Skin exam: PRESENT: erythema, warm, other - Approximately 3 cm x 4 cm area of induration on the left inner forearm Results Laboratory Results: 08/16/17 05:35 08/16/17 05:35 08/16/17 08/16/17 05:35 05:35 WBC 7.6 RBC 4.15 Hgb 13.0 Hct 38.3 MCV 92 MCH 31.3 MCHC 33.9 RDW 13.1 Plt Count 158 Seg Neutrophils % 66.3 Lymphocytes % 23.1 Monocytes % 6.9 Eosinophils % 3.1 Basophils % 0.6 Absolute Neutrophils 5.0 Absolute Lymphocytes 1.7 Absolute Monocytes 0.5 Absolute Eosinophils 0.2 Absolute Basophils 0.0 Sodium 136.1 L Potassium 4.0 Chloride 100 Carbon Dioxide 31 H Anion Gap 5 BUN 9 Creatinine 0.69 Est GFR ( Amer) > 60 Est GFR (Non-Af Amer) > 60 Glucose 359 H Calcium 8.5 Assessment & Plan - Diagnosis (1) Cellulitis Qualifiers: Site of cellulitis: extremity Site of cellulitis of extremity: upper extremity Laterality: unspecified laterality Qualified Code(s): L03.119 - Cellulitis of unspecified part of limb Is this a current diagnosis for this admission?: Yes Plan: Continue Zosyn and vancomycin. Blood cultures 2 are pending. As needed analgesics (2) Diabetes Qualifiers: Diabetes mellitus type: type 2 Diabetes mellitus complication status: with unspecified complications Diabetes mellitus intermediate card tender insulin use: unspecified intermediate card tender insulin use status Qualified Code(s): E11.8 - Type 2 diabetes mellitus with unspecified complications Is this a current diagnosis for this admission?: Yes Plan: Continue sliding scale coverage (3) Heroin abuse Is this a current diagnosis for this admission?: Yes Plan: Counseled. As needed anxiolytics (4) Interstitial cystitis (chronic) without hematuria Is this a current diagnosis for this admission?: Yes Plan: Urinalysis shows no signs of infection (5) Ulcerative colitis without complications Qualifiers: Ulcerative colitis location: unspecified ulcerative colitis location Qualified Code(s): K51.90 - Ulcerative colitis, unspecified, without complications Is this a current diagnosis for this admission?: Yes (6) Chronic pain associated with significant psychosocial dysfunction Is this a current diagnosis for this admission?: Yes Plan: She appears comfortable - Time Time Spent with patient: 25-34 minutes Total Critical Time (Minutes): 15 Medications reviewed and adjusted accordingly: Yes Anticipated discharge: Home
[2017-08-16] MEDS ORDERED: NALBUPHINE HCL INJ 10 MG/1 ML AMPULE IV PRN (15:55)
[2017-08-16] MEDS: MORPHINE SULFATE 10 MG/ML INJ IV PRN ×2 (17:56→22:40)
[2017-08-16] MEDS: DICYCLOMINE HCL 20 MG TABLET PO SCH ×2 (17:56→22:19)
[2017-08-17] MEDS: VANCOMYCIN HCL 750 MG in DEXTROSE 5%-WATER 250 ML IV SCH (02:09)
[2017-08-17] MEDS: ZOLPIDEM TARTRATE 5 MG TABLET PO PRN (02:22)
[2017-08-17] MEDS: MORPHINE SULFATE 10 MG/ML INJ IV PRN ×2 (04:09→08:30)
[2017-08-17] MEDS: KETOROLAC TROMETHAMINE INJ/PF 30 MG/1 ML SDV IV SCH (06:00)
[2017-08-17] MEDS: GABAPENTIN 300 MG CAPSULE PO SCH (06:00)
[2017-08-17 07:21] LABS: ABSOLUTE EOSINOPHILS # (AUTO) 0.2 10^3/uL (0.0-0.6); ABSOLUTE LYMPHOCYTES (AUTO) 1.6 10^3/uL (0.5-4.7); ABSOLUTE MONOCYTES (AUTO) 0.3 10^3/uL (0.1-1.4); ABSOLUTE NEUT (AUTO) 2.7 10^3/uL (1.7-8.2); EOSINOPHILS % (AUTO) 4.4 % (0-6); HEMATOCRIT 34.6 % (36.0-47.0); HEMOGLOBIN 12.1 g/dL (12.0-15.5); LYMPHOCYTES % (AUTO) 33.1 % (13-45); MEAN CORPUSCULAR HEMOGLOBIN 31.1 pg (27.0-33.4); MEAN CORPUSCULAR HGB CONC 34.8 g/dL (32.0-36.0); MEAN CORPUSCULAR VOLUME 89 fl (80-97); MONOCYTES % (AUTO) 5.9 % (3-13); PLATELET COUNT 264 10^3/uL (150-450); RED BLOOD COUNT 3.88 10^6/uL (3.72-5.28); SEGMENTED NEUTROPHILS % (AUTO) 55.6 % (42-78); TOTAL CELLS COUNTED % (AUTO) 100 %; WHITE BLOOD COUNT 4.8 10^3/uL (4.0-10.5)
[2017-08-17 07:40] LABS: ANION GAP 5 (5-19); BLOOD UREA NITROGEN 13 mg/dL (7-20); CALCIUM 9.3 mg/dL (8.4-10.2); CARBON DIOXIDE 27 mmol/L (22-30); CHLORIDE 103 mmol/L (98-107); GLUCOSE 381 mg/dL (75-110); POTASSIUM 4.2 mmol/L (3.6-5.0); SODIUM 135.4 mmol/L (137-145)
[2017-08-17] MEDS: INSULIN LISPRO 100 UNIT/ML 3 ML VIAL SUBCUT PRN (08:30)
[2017-08-17] MEDS ORDERED: METFORMIN HCL 500 MG TABLET PO ONE (10:30)
[2017-08-17] MEDS: DICYCLOMINE HCL 20 MG TABLET PO SCH (11:00)
[2017-08-17] MEDS: FAMOTIDINE 20 MG TABLET PO SCH (11:00)
[2017-08-17] MEDS: DOCUSATE SODIUM 100 MG CAPSULE PO SCH (11:00)
[2017-08-17 11:27] VITALS: BP 107/71
[2017-08-17] MEDS ORDERED: AMOXICILLIN TR/POT CLAVULANATE 500-125 MG TAB PO SCH (14:00)
[2017-08-17] MEDS ORDERED: METFORMIN HCL 500 MG TABLET PO SCH (16:00)
--- NOTE | 2017-08-17 17:34 | PDOC DISCHARGE SUMMARY ---
General - Admit/Disc Date/PCP Admission Date/Primary Care Provider: 08/15/17 20:22 LATRICE ISBELL MD Discharge Date: 08/17/17 - Discharge Diagnosis (1) Cellulitis Is this a current diagnosis for this admission?: Yes Summary: 2 small areas of erythema around injection sites on the wrist and left inner forearm. She has a normal white count. Blood cultures 2 are negative. This can be treated as an outpatient on oral antibiotics. She is asked for pain medicine for discharge. We have denied her request for opioid analgesics. Can take ibuprofen or Aleve. (2) Diabetes Is this a current diagnosis for this admission?: Yes Summary: A prescription for metformin and to follow-up with the formerly [facility]. [facility] obtained all her prescriptions for her at discharge. [facility] will provide them after this month (3) Heroin abuse Is this a current diagnosis for this admission?: Yes Summary: Given numbers for outpatient counseling. She was given hotline numbers as well. He management is attempting to find her inpatient placement (4) Interstitial cystitis (chronic) without hematuria Is this a current diagnosis for this admission?: Yes (5) Ulcerative colitis without complications Is this a current diagnosis for this admission?: Yes Summary: No symptoms presently (6) Chronic pain associated with significant psychosocial dysfunction Is this a current diagnosis for this admission?: Yes - Additional Information Resuscitation Status: Full Code Discharge Diet: Diabetic Discharge Activity: Activity As Tolerated Prescriptions: Amox Tr/Potassium Clavulanate [Augmentin 875-125 mg Tablet] 1 tab PO BID #20 tablet Dicyclomine HCl [Bentyl 20 mg Tablet] 20 mg PO QID #20 tablet Metformin HCl [Glucophage 500 mg Tablet] 500 mg PO BIDACBS #30 tablet Home Medications: Alprazolam [Xanax] 1 mg PO BIDP PRN 08/16/17 Amphetamine Salts 30mg Tablet 30 mg PO BID 08/16/17 Citalopram Hydrobromide [Celexa 40 mg Tablet] 1 tab PO DAILY 08/16/17 Gabapentin [Neurontin 300 mg Capsule] 300 mg PO Q8 08/16/17 Amox Tr/Potassium Clavulanate [Augmentin 875-125 mg Tablet] 1 tab PO BID #20 tablet 08/17/17 Dicyclomine HCl [Bentyl 20 mg Tablet] 20 mg PO QID #20 tablet 08/17/17 Metformin HCl [Glucophage 500 mg Tablet] 500 mg PO BIDACBS #30 tablet 08/17/17 History of Present Illness History of Present Illness: ИВАН MONTELONGO is a 32 year old female Hospital Course Hospital Course: She was started on IV broad-spectrum antibiotics after blood cultures 2 were obtained . patient was admitted to the medical floor by the hospitalist service. She was given as needed pain medication and Bentyl for her abdominal cramping due to diarrhea. Area most likely from opioid withdrawals. Areas of cellulitis are extremely small there is no lymphangitic streaking noted. Blood cultures were negative her white count remained normal she had no fever. She was a placed oral antibiotics today for a total of a 10 day course. She was discharged home with follow-up with the community [facility] Physical Exam Vital Signs: Temp Pulse Resp BP Pulse Ox 97.7 F 58 L 16 107/71 98 08/17/17 11:22 08/17/17 11:42 08/17/17 11:42 08/17/17 11:22 08/17/17 11:42 Intake & Output 08/16/17 08/17/17 08/18/17 06:59 06:59 06:59 Weight 75.807 kg General appearance: PRESENT: no acute distress, well-developed, well-nourished Head exam: PRESENT: atraumatic, normocephalic Eye exam: PRESENT: conjunctiva pink, EOMI, PERRLA. ABSENT: scleral icterus Ear exam: PRESENT: normal external ear exam Mouth exam: PRESENT: dry mucosa Neck exam: ABSENT: carotid bruit, JVD, lymphadenopathy, thyromegaly Respiratory exam: PRESENT: clear to auscultation brandon. ABSENT: rales, rhonchi, wheezes Cardiovascular exam: PRESENT: RRR. ABSENT: diastolic murmur, rubs, systolic murmur Pulses: PRESENT: normal dorsalis pedis pul Vascular exam: PRESENT: normal capillary refill GI/Abdominal exam: PRESENT: normal bowel sounds, soft. ABSENT: distended, guarding, mass, organolmegaly, rebound, tenderness Rectal exam: PRESENT: deferred Extremities exam: PRESENT: full ROM. ABSENT: calf tenderness, clubbing, pedal edema Musculoskeletal exam: PRESENT: ambulatory Neurological exam: PRESENT: alert, awake, oriented to person, oriented to place , oriented to time, oriented to situation, CN II-XII grossly intact. ABSENT: motor sensory deficit Skin exam: PRESENT: erythema - Is approximately 2 cm area of erythema on the right inner forearm around injection site. there is a 3 cm area of erythema on the left inner forearm around an injection site Results Laboratory Results: 08/17/17 06:53 08/17/17 06:53 08/17/17 08/17/17 06:53 06:53 WBC 4.8 RBC 3.88 Hgb 12.1 Hct 34.6 L MCV 89 MCH 31.1 MCHC 34.8 RDW 13.0 Plt Count 264 Seg Neutrophils % 55.6 Lymphocytes % 33.1 Monocytes % 5.9 Eosinophils % 4.4 Basophils % 1.0 Absolute Neutrophils 2.7 Absolute Lymphocytes 1.6 Absolute Monocytes 0.3 Absolute Eosinophils 0.2 Absolute Basophils 0.0 Sodium 135.4 L Potassium 4.2 Chloride 103 Carbon Dioxide 27 Anion Gap 5 BUN 13 Creatinine 0.59 Est GFR ( Amer) > 60 Est GFR (Non-Af Amer) > 60 Glucose 381 H Calcium 9.3 Qualifiers PATEINT BEING DISCHARGED WITH ANY OF THE FOLLOWING DIAGNOSIS?: No Plan Discharge Plan: Discharge home. Follow-up with community care clinic Time Spent: Less than 30 Minutes
== END 2017-08-17 12:40 | disposition home or self-care (01) | DRG 603 ==
LOC: ER 16:51 → EH 20:22 → 2S 08-16 15:38
PROVIDERS: ADMIT Internal Medicine; ATTEND Internal Medicine
DX: L03.113 Cellulitis of right upper limb (principal); K51.90 Ulcerative colitis, unspecified, without complications; L03.114 Cellulitis of left upper limb; F11.10 Opioid abuse, uncomplicated; E10.65 Type 1 diabetes mellitus with hyperglycemia; N30.10 Interstitial cystitis (chronic) without hematuria; G89.4 Chronic pain syndrome; F32.9 Major depressive disorder, single episode, unspecified; F17.210 Nicotine dependence, cigarettes, uncomplicated; J45.909 Unspecified asthma, uncomplicated; Z79.4 Long term (current) use of insulin; Z91.19 Patient's noncompliance with other medical treatment and regimen; Z88.2 Allergy status to sulfonamides; Z88.6 Allergy status to analgesic agent; Z88.8 Allergy status to other drugs, medicaments and biological substances; Z98.51 Tubal ligation status
CPT/HCPCS: 36415; 80048; 80053; 80202; 80307; 81001; 82962; 83036; 85025; 87040; 99284; J0744; J1650; J1815; J1885; J2270; J2300; J2543; J2550; J3370; J3490; J7030; J7060

== ENCOUNTER 2017-09-10 15:56 | Emergency (ER) | payer SELFPAY ==
[2017-09-10] MEDS ORDERED: NORMAL SALINE 1000 ML 1,000 ML IV ONE (16:06)
[2017-09-10] MEDS ORDERED: INSULIN REG, HUMAN 100 UNIT/ML 3 ML VIAL (PYX) IV ONE (16:07)
--- NOTE | 2017-09-10 16:09 | ER Document Report ---
ED Medical Screen (RME) - General Chief Complaint: High Blood Sugar Stated Complaint: BLOOD SUGAR ISSUE Time Seen by Provider: 09/10/17 16:06 Mode of Arrival: Ambulatory Information source: Patient TRAVEL OUTSIDE OF THE [place] IN LAST 30 DAYS: No - HPI Patient complains to provider of: elevated BS Onset: Other - pt is an IDDM who has been out of her insulin for the past month. Her sugars have been elevated. Also c/o vaginal d/c - Related Data Allergies/Adverse Reactions: infliximab [From Remicade] Allergy (Severe, Verified 08/15/17 16:55) Anaphylaxis clindamycin [Clindamycin] Allergy (Verified 08/15/17 16:55) sulfamethoxazole [From Bactrim] Allergy (Verified 08/15/17 16:55) trimethoprim [From Bactrim] Allergy (Verified 08/15/17 16:55) codeine [Codeine] Adverse Reaction (Mild, Verified 08/15/17 16:55) NSAIDS (Non-Steroidal Anti-Inflamma Adverse Reaction (Verified 08/15/17 16:55) Past Medical History - Past Medical History Cardiac Medical History: Denies: Hx Coronary Artery Disease, Hx Heart Attack, Hx Hypertension Pulmonary Medical History: Reports: Hx Asthma Denies: Hx Bronchitis, Hx COPD, Hx Pneumonia Neurological Medical History: Reports: Hx Migraine, Hx Seizures - BLOOD SUGAR GOT TOO LOW. Denies: Hx Cerebrovascular Accident Endocrine Medical History: Reports: Hx Diabetes Mellitus Type 1 Renal/ Medical History: Denies: Hx Peritoneal Dialysis GI Medical History: Reports: Hx Gastroesophageal Reflux Disease, Hx Ulcerative Colitis Musculoskeltal Medical History: Denies Hx Arthritis, Reports Hx Fibromyalgia, Reports Hx Musculoskeletal Trauma Psychiatric Medical History: Reports: Hx Anxiety, Hx Depression Traumatic Medical History: Reports: Hx Fractures Past Surgical History: Reports: Hx Section - x1, Hx Tubal Ligation. Denies: Hx Pacemaker - Immunizations Hx Diphtheria, Pertussis, Tetanus Vaccination: Yes History of Influenza Vaccine for 04/2017 - 09/2017 Season: Refused
[2017-09-10 17:44] LABS: ABSOLUTE BASOPHILS # (AUTO) 0.1 10^3/uL (0.0-0.2); ABSOLUTE EOSINOPHILS # (AUTO) 0.2 10^3/uL (0.0-0.6); ABSOLUTE LYMPHOCYTES (AUTO) 3.7 10^3/uL (0.5-4.7); ABSOLUTE MONOCYTES (AUTO) 0.3 10^3/uL (0.1-1.4); ABSOLUTE NEUT (AUTO) 3.2 10^3/uL (1.7-8.2); BASOPHILS % (AUTO) 0.9 % (0-2); HEMOGLOBIN 13.1 g/dL (12.0-15.5); LYMPHOCYTES % (AUTO) 49.9 % (13-45); MEAN CORPUSCULAR HEMOGLOBIN 30.6 pg (27.0-33.4); MEAN CORPUSCULAR HGB CONC 33.7 g/dL (32.0-36.0); MEAN CORPUSCULAR VOLUME 91 fl (80-97); MONOCYTES % (AUTO) 4.3 % (3-13); PLATELET COUNT 206 10^3/uL (150-450); RED BLOOD COUNT 4.29 10^6/uL (3.72-5.28); RED CELL DISTRIBUTION WIDTH 14.5 % (11.5-14.0); SEGMENTED NEUTROPHILS % (AUTO) 42.9 % (42-78); TOTAL CELLS COUNTED % (AUTO) 100 %; WHITE BLOOD COUNT 7.5 10^3/uL (4.0-10.5)
[2017-09-10 17:52] LABS: APPEARANCE,URINE SLIGHTLY-CLOUDY; BILIRUBIN,URINE NEGATIVE (NEGATIVE); COLOR,URINE YELLOW; GLUCOSE, URINE >=500 mg/dL (NEGATIVE); KETONES,URINE NEGATIVE (NEGATIVE); LEUKOCYTE ESTERASE,URINE LARGE (NEGATIVE); NITRITE,URINE NEGATIVE (NEGATIVE); PROTEIN,URINE NEGATIVE (NEGATIVE); URINE SPECIFIC GRAVITY 1.028
[2017-09-10] MEDS ORDERED: NITROFURANTOIN MONOHYD/M-CRYST 100 MG CAPSULE PO ONE (19:47)
[2017-09-10 19:54] LABS: ALANINE AMINOTRANSFERASE 182 U/L (9-52); ALBUMIN 3.1 g/dL (3.5-5.0); ALKALINE PHOSPHATASE 231 U/L (38-126); ANION GAP 10 (5-19); ASPARTATE AMINO TRANSFERASE 31 U/L (14-36); BILIRUBIN,DIRECT 0.5 mg/dL (0.0-0.4); BILIRUBIN,TOTAL 0.5 mg/dL (0.2-1.3); BLOOD UREA NITROGEN 4 mg/dL (7-20); CALCIUM 8.3 mg/dL (8.4-10.2); CARBON DIOXIDE 28 mmol/L (22-30); CHLORIDE 101 mmol/L (98-107); GLUCOSE 146 mg/dL (75-110); POTASSIUM 3.7 mmol/L (3.6-5.0); SODIUM 138.6 mmol/L (137-145); TOTAL PROTEIN 6.2 g/dL (6.3-8.2)
--- NOTE | 2017-09-10 20:06 | ER Document Report ---
ED General - General Chief Complaint: High Blood Sugar Stated Complaint: BLOOD SUGAR ISSUE Time Seen by Provider: 09/10/17 16:06 Mode of Arrival: Ambulatory Notes: The patient is a 32-year-old female, type I diabetic, presents after she took her blood sugar was 543 this morning. She ran out of her insulin 1 month ago. She also had a fever earlier in the week and noticed vaginal discharge and dysuria. Patient denies nausea, vomiting, flank pain, hematuria, rash, neck pain, chest pain or shortness of breath. TRAVEL OUTSIDE OF THE [place] IN LAST 30 DAYS: No - Related Data Allergies/Adverse Reactions: infliximab [From Remicade] Allergy (Severe, Verified 08/15/17 16:55) Anaphylaxis clindamycin [Clindamycin] Allergy (Verified 08/15/17 16:55) sulfamethoxazole [From Bactrim] Allergy (Verified 08/15/17 16:55) trimethoprim [From Bactrim] Allergy (Verified 08/15/17 16:55) codeine [Codeine] Adverse Reaction (Mild, Verified 08/15/17 16:55) NSAIDS (Non-Steroidal Anti-Inflamma Adverse Reaction (Verified 08/15/17 16:55) Past Medical History - General Information source: Patient - Social History Smoking Status: Current Every Day Smoker Frequency of alcohol use: None Drug Abuse: Heroin Family History: COPD, DM, Malignancy Patient has suicidal ideation: No Patient has homicidal ideation: No - Past Medical History Cardiac Medical History: Denies: Hx Coronary Artery Disease, Hx Heart Attack, Hx Hypertension Pulmonary Medical History: Reports: Hx Asthma Denies: Hx Bronchitis, Hx COPD, Hx Pneumonia Neurological Medical History: Reports: Hx Migraine, Hx Seizures - BLOOD SUGAR GOT TOO LOW. Denies: Hx Cerebrovascular Accident Endocrine Medical History: Reports: Hx Diabetes Mellitus Type 1 Renal/ Medical History: Denies: Hx Peritoneal Dialysis GI Medical History: Reports: Hx Gastroesophageal Reflux Disease, Hx Ulcerative Colitis Musculoskeltal Medical History: Denies Hx Arthritis, Reports Hx Fibromyalgia, Reports Hx Musculoskeletal Trauma Psychiatric Medical History: Reports: Hx Anxiety, Hx Depression Traumatic Medical History: Reports: Hx Fractures Past Surgical History: Reports: Hx Section - x1, Hx Tubal Ligation. Denies: Hx Pacemaker - Immunizations Hx Diphtheria, Pertussis, Tetanus Vaccination: Yes Review of Systems - Review of Systems Notes: REVIEW OF SYSTEMS: CONSTITUTIONAL: +fevers, -chills EENT: -eye pain, -difficulty swallowing, -nasal congestion CARDIOVASCULAR: -chest pain, -syncope. RESPIRATORY: -cough, -SOB GASTROINTESTINAL: -abdominal pain, -nausea, -vomiting, -diarrhea GENITOURINARY: +vaginal discharge, +dysuria, -hematuria MUSCULOSKELETAL: -back pain, -neck pain SKIN: -rash or skin lesions. HEMATOLOGIC: -easy bruising or bleeding. LYMPHATIC: -swollen, enlarged glands. NEUROLOGICAL: -altered mental status or loss of consciousness, -headache, - neurologic symptoms PSYCHIATRIC: -anxiety, -depression. ALL OTHER SYSTEMS REVIEWED AND NEGATIVE. Physical Exam - Vital signs Vitals: Temp Pulse Resp BP Pulse Ox 98.1 F 79 16 119/66 94 09/10/17 15:57 09/10/17 15:57 09/10/17 15:57 09/10/17 15:57 09/10/17 15:57 - Notes Notes: PHYSICAL EXAMINATION: GENERAL: Well-appearing, well-nourished and in no acute distress. HEAD: Atraumatic, normocephalic. EYES: Pupils equal round and reactive to light, extraocular movements intact, sclera anicteric, conjunctiva are normal. ENT: nares patent, oropharynx clear without exudates. Moist mucous membranes. NECK: Normal range of motion, supple without lymphadenopathy LUNGS: Breath sounds clear to auscultation bilaterally and equal. No wheezes rales or rhonchi. HEART: Regular rate and rhythm without murmurs ABDOMEN: Soft, nontender, normoactive bowel sounds. No guarding, no rebound. No masses appreciated. : Large amount of yellow vaginal discharge, non-tender uterus and adnexa. EXTREMITIES: Normal range of motion, no pitting or edema. No cyanosis. NEUROLOGICAL: Cranial nerves grossly intact. Normal speech, normal gait. Normal sensory and motor exams. PSYCH: Normal mood, normal affect. SKIN: Warm, Dry, normal turgor, no rashes or lesions noted. Course - Re-evaluation Re-evalutation: There are no signs of DKA at this time. Her urinalysis shows evidence of a UTI and will start Macrobid. Pelvic exam with large amounts of yellow vaginal discharge. There is concern for gonorrhea chlamydia, so will treat empirically. Patient says that she is unable to afford her sliding scale NovoLog insulin and Toujeo since losing Medicaid. Will place a Case management consult. Will have her follow-up with her primary care physician, Dr. Lee, for further evaluation and treatment. - Vital Signs Vital signs: Temp Pulse Resp BP Pulse Ox 98.1 F 79 16 119/66 94 09/10/17 15:57 09/10/17 15:57 09/10/17 15:57 09/10/17 15:57 09/10/17 15:57 - Laboratory Result Diagrams: 09/10/17 17:19 09/10/17 19:20 Laboratory results interpreted by me: 09/10/17 09/10/17 09/10/17 17:19 17:19 18:18 RDW 14.5 H Lymphocytes % 49.9 H BUN Creatinine Glucose POC Glucose 211 H Calcium Direct Bilirubin ALT Alkaline Phosphatase Total Protein Albumin Urine Glucose (UA) >=500 H Urine Urobilinogen 2.0 H Ur Leukocyte Esterase LARGE H 09/10/17 19:20 RDW Lymphocytes % BUN 4 L Creatinine 0.50 L Glucose 146 H POC Glucose Calcium 8.3 L Direct Bilirubin 0.5 H ALT 182 H Alkaline Phosphatase 231 H Total Protein 6.2 L Albumin 3.1 L Urine Glucose (UA) Urine Urobilinogen Ur Leukocyte Esterase Discharge - Discharge Clinical Impression: Vaginal discharge UTI (urinary tract infection) Qualifiers: Urinary tract infection type: acute cystitis Hematuria presence: without hematuria Qualified Code(s): N30.00 - Acute cystitis without hematuria Condition: Stable Disposition: HOME, SELF-CARE Additional Instructions: URINARY TRACT INFECTION: Your evaluation indicates that you have a urinary tract infection. This is due to germs growing in the bladder. This is a common problem. This infection usually responds quickly to antibiotics. Your antibiotic should be taken exactly as prescribed. Drink plenty of fluids -- three to four quarts a day. Occasionally, a bladder anesthetic will be prescribed to help stop the feeling of urgency until the antibiotic has a chance to clear the infection. This may cause your urine to be dark orange. Certain urine infections require a culture. If the doctor obtained a culture, the results will be back in two days. You should call to see if a change in treatment is needed. A repeat urinalysis after you finish treatment is often recommended. The physician will let you know if further testing is required. Call the doctor if you develop fever, chills, flank pain, inability to urinate, or blood in the urine. ANTIBIOTIC THERAPY: You have been given an antibiotic prescription. It's important that you take all the medication, unless instructed otherwise by your physician. Failure to complete the entire course can result in relapse of your condition. Common side effects of antibiotics include nausea, intestinal cramping, or diarrhea. Women may develop vaginal yeast infections, and babies can get yeast (thrush) in the mouth following the use of antibiotics. Contact your physician if you develop significant side effects from this medication. Allergy to this antibiotic can result in hives, wheezing, faintness, or itching. If symptoms of allergy occur, stop the medication and call the doctor. NITROFURANTOIN (MACRODANTIN, MACROBID): You have received a prescription for nitrofurantoin (Macrodantin). This antibiotic is used for urinary tract infections. Women who are or nursing should notify the physician before taking this medicine. If you have ever had a problem caused by this medication in the past, be sure the physician is aware of it. Common side effects of this medicine include nausea, vomiting, or decreased appetite. Notify your physician if these side effects become severe. Immediately stop this medicine and call the physician if you develop cough , shortness of breath, chest pain, weakness, jaundice (yellow color of the skin and whites of the eyes), or a skin rash. FOLLOW-UP CARE: If you have been referred to a physician for follow-up care, call the physician s office for an appointment as you were instructed or within the next two days. If you experience worsening or a significant change in your symptoms, notify the physician immediately or return to the Emergency Department at any time for re-evaluation. Prescriptions: Insulin Aspart [Novolog Flexpen] 15 unit SQ TID PRN 6 Days #1 [email or web address] PRN Reason: Insulin Glargine,Hum.rec.anlog [Toujeo Solostar] 40 unit SQ DAILY #1 [email or web address] Referrals: [facility] [Outside] - Follow up as needed
[2017-09-10] MEDS ORDERED: CEFTRIAXONE INJ 250 MG VIAL IM ONE (20:20)
[2017-09-10] MEDS ORDERED: AZITHROMYCIN 250 MG TABLET PO ONE (20:20)
[2017-09-10] MEDS ORDERED: LIDOCAINE 1% INJ-PF (10 MG/ML) 30 ML SDV INFIL ONE (20:20)
[2017-09-10 20:35] LABS: T.VAGINALIS (WET MOUNT) TRICHOMONAS SEEN
[2017-09-10 20:36] LABS: BACTERIA (WET MOUNT) 4+ BACTERIA SEEN; EPITHELIALS (WET MOUNT) 4+ EPITHELIALS SEEN; RBCS (WET MOUNT) NO RBCS SEEN; WBCS (WET MOUNT) 4+ WBCS SEEN; YEAST (WET MOUNT) NO YEAST SEEN
[2017-09-10] MEDS ORDERED: METRONIDAZOLE 500 MG TABLET PO ONE (20:45)
[2017-09-10 21:20] VITALS: BP 95/58
[2017-09-10 22:12] LABS: CHLAM PCR NOT DETECTED (NOT DETECT); GON PCR NOT DETECTED (NOT DETECT)
== END 2017-09-10 21:11 | disposition home or self-care (01) ==
LOC: ER 15:56
DX: A59.00 Urogenital trichomoniasis, unspecified (principal); N30.00 Acute cystitis without hematuria; R50.9 Fever, unspecified; E10.65 Type 1 diabetes mellitus with hyperglycemia; T38.3X6A Underdosing of insulin and oral hypoglycemic [antidiabetic] drugs, initial encounter; Z91.128 Patient's intentional underdosing of medication regimen for other reason; Z91.14 Patient's other noncompliance with medication regimen; J45.909 Unspecified asthma, uncomplicated; Z88.8 Allergy status to other drugs, medicaments and biological substances; Z88.1 Allergy status to other antibiotic agents
CPT/HCPCS: 99285; 96372; 96360; 36415; 87210; 82962; 85025; 81025; 80053; 81001; 87491; 87591; J3490; J1815; J7030; J0696; J8499

== ENCOUNTER 2017-10-12 09:13 | Emergency (ER) | payer OTHER ==
[2017-10-12] MEDS ORDERED: NORMAL SALINE 1000 ML 1,000 ML IV ONE ×2 (10:27→11:12)
--- NOTE | 2017-10-12 10:28 | ER Document Report ---
ED Medical Screen (RME) - General Chief Complaint: High Blood Sugar Stated Complaint: BLOOD SUGAR ISSUE, ARM PAIN Time Seen by Provider: 10/12/17 10:26 Notes: Patient is brought to the hospital accompanied by mobile crisis. She complains of being out of her insulin for over a month and having uncontrolled blood sugars. 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 She states she thinks about dying every day and has tried to commit suicide before. She also states that she has severe vaginal pain but denies any type of assault or trauma. TRAVEL OUTSIDE OF THE [place] IN LAST 30 DAYS: No - Related Data Allergies/Adverse Reactions: infliximab [From Remicade] Allergy (Severe, Verified 10/12/17 10:04) Anaphylaxis clindamycin [Clindamycin] Allergy (Verified 10/12/17 10:04) sulfamethoxazole [From Bactrim] Allergy (Verified 10/12/17 10:04) trimethoprim [From Bactrim] Allergy (Verified 10/12/17 10:04) codeine [Codeine] Adverse Reaction (Mild, Verified 10/12/17 10:04) NSAIDS (Non-Steroidal Anti-Inflamma Adverse Reaction (Verified 10/12/17 10:04) Past Medical History - Social History Frequency of alcohol use: None Drug Abuse: Heroin, Prescription drugs - Past Medical History Cardiac Medical History: Denies: Hx Coronary Artery Disease, Hx Heart Attack, Hx Hypertension Pulmonary Medical History: Reports: Hx Asthma Denies: Hx Bronchitis, Hx COPD, Hx Pneumonia Neurological Medical History: Reports: Hx Migraine, Hx Seizures - BLOOD SUGAR GOT TOO LOW. Denies: Hx Cerebrovascular Accident Endocrine Medical History: Reports: Hx Diabetes Mellitus Type 1 Renal/ Medical History: Denies: Hx Peritoneal Dialysis GI Medical History: Reports: Hx Gastroesophageal Reflux Disease, Hx Ulcerative Colitis Musculoskeltal Medical History: Denies Hx Arthritis, Reports Hx Fibromyalgia, Reports Hx Musculoskeletal Trauma Psychiatric Medical History: Reports: Hx Anxiety, Hx Depression Traumatic Medical History: Reports: Hx Fractures Past Surgical History: Reports: Hx Section - x1, Hx Tubal Ligation. Denies: Hx Pacemaker - Immunizations Hx Diphtheria, Pertussis, Tetanus Vaccination: Yes History of Influenza Vaccine for 04/2017 - 09/2017 Season: Refused Physical Exam - Vital signs Vitals: Temp Pulse Resp BP Pulse Ox 97.8 F 81 14 131/88 H 98 10/12/17 09:29 10/12/17 09:29 10/12/17 09:29 10/12/17 09:29 10/12/17 09:29 Course - Vital Signs Vital signs: Temp Pulse Resp BP Pulse Ox 97.8 F 81 14 131/88 H 98 10/12/17 09:29 10/12/17 09:29 10/12/17 09:29 10/12/17 09:29 10/12/17 09:29
[2017-10-12 11:12] LABS: ABSOLUTE BASOPHILS # (AUTO) 0.1 10^3/uL (0.0-0.2); ABSOLUTE EOSINOPHILS # (AUTO) 0.1 10^3/uL (0.0-0.6); ABSOLUTE MONOCYTES (AUTO) 0.3 10^3/uL (0.1-1.4); BASOPHILS % (AUTO) 0.9 % (0-2); EOSINOPHILS % (AUTO) 1.2 % (0-6); HEMATOCRIT 44.3 % (36.0-47.0); HEMOGLOBIN 14.9 g/dL (12.0-15.5); LYMPHOCYTES % (AUTO) 35.2 % (13-45); MEAN CORPUSCULAR HEMOGLOBIN 30.7 pg (27.0-33.4); MEAN CORPUSCULAR HGB CONC 33.7 g/dL (32.0-36.0); MEAN CORPUSCULAR VOLUME 91 fl (80-97); PLATELET COUNT 236 10^3/uL (150-450); RED BLOOD COUNT 4.87 10^6/uL (3.72-5.28); RED CELL DISTRIBUTION WIDTH 15.3 % (11.5-14.0); SEGMENTED NEUTROPHILS % (AUTO) 59.7 % (42-78); TOTAL CELLS COUNTED % (AUTO) 100 %; WHITE BLOOD COUNT 8.4 10^3/uL (4.0-10.5)
[2017-10-12 11:21] LABS: APPEARANCE,URINE CLEAR; BILIRUBIN,URINE NEGATIVE (NEGATIVE); COLOR,URINE STRAW; GLUCOSE, URINE >=500 mg/dL (NEGATIVE); KETONES,URINE NEGATIVE (NEGATIVE); LEUKOCYTE ESTERASE,URINE SMALL (NEGATIVE); NITRITE,URINE NEGATIVE (NEGATIVE); PROTEIN,URINE NEGATIVE (NEGATIVE); URINE SPECIFIC GRAVITY 1.031; UROBILINOGEN,URINE NEGATIVE mg/dL (<2.0)
--- NOTE | 2017-10-12 11:30 | ER Document Report ---
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 Has Suboxone film to keep her through the next 2 days (told Chari_[email or web address] test case developer) because [facility] is trying to get her a bed at [facility]. Has been in detox twice in the past. 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 Chari has spoken with her this morning in the room. No PCP. TRAVEL OUTSIDE OF THE [place] IN LAST 30 DAYS: No - Related Data Allergies/Adverse Reactions: infliximab [From Remicade] Allergy (Severe, Verified 10/12/17 10:04) Anaphylaxis clindamycin [Clindamycin] Allergy (Verified 10/12/17 10:04) sulfamethoxazole [From Bactrim] Allergy (Verified 10/12/17 10:04) trimethoprim [From Bactrim] Allergy (Verified 10/12/17 10:04) codeine [Codeine] Adverse Reaction (Mild, Verified 10/12/17 10:04) NSAIDS (Non-Steroidal Anti-Inflamma Adverse Reaction (Verified 10/12/17 10:04) Past Medical History - General Information source: Patient - Social History Smoking Status: Current Every Day Smoker Frequency of alcohol use: None Drug Abuse: Heroin, Prescription drugs Family History: COPD, DM, Malignancy Patient has suicidal ideation: Yes Patient has homicidal ideation: No - Past Medical History Cardiac Medical History: Denies: Hx Coronary Artery Disease, Hx Heart Attack, Hx Hypertension Pulmonary Medical History: Reports: Hx Asthma Denies: Hx Bronchitis, Hx COPD, Hx Pneumonia Neurological Medical History: Reports: Hx Migraine, Hx Seizures - BLOOD SUGAR GOT TOO LOW. Denies: Hx Cerebrovascular Accident Endocrine Medical History: Reports: Hx Diabetes Mellitus Type 1 Renal/ Medical History: Denies: Hx Peritoneal Dialysis GI Medical History: Reports: Hx Gastroesophageal Reflux Disease, Hx Ulcerative Colitis Musculoskeltal Medical History: Denies Hx Arthritis, Reports Hx Fibromyalgia, Reports Hx Musculoskeletal Trauma Psychiatric Medical History: Reports: Hx Anxiety, Hx Depression Traumatic Medical History: Reports: Hx Fractures Past Surgical History: Reports: Hx Section - x1, Hx Tubal Ligation. Denies: Hx Pacemaker - Immunizations Hx Diphtheria, Pertussis, Tetanus Vaccination: Yes Review of Systems - Review of Systems Constitutional: No symptoms reported EENT: No symptoms reported Cardiovascular: No symptoms reported Respiratory: No symptoms reported Gastrointestinal: No symptoms reported Genitourinary: No symptoms reported Female Genitourinary: See HPI Musculoskeletal: No symptoms reported Skin: No symptoms reported Hematologic/Lymphatic: No symptoms reported Neurological/Psychological: No symptoms reported Physical Exam - Vital signs Vitals: Temp Pulse Resp BP Pulse Ox 97.8 F 81 14 131/88 H 98 10/12/17 09:29 10/12/17 09:29 10/12/17 09:29 10/12/17 09:29 10/12/17 09:29 Interpretation: Normal - General General appearance: Appears well, Alert - HEENT Head: Normocephalic, Atraumatic Eyes: Normal Pupils: PERRL - Respiratory Respiratory status: No respiratory distress Chest status: Nontender Breath sounds: Normal Chest palpation: Normal - Cardiovascular Rhythm: Regular Heart sounds: Normal auscultation Murmur: No - Abdominal Inspection: Normal Distension: No distension Bowel sounds: Normal Tenderness: Nontender. No: Tender Organomegaly: No organomegaly - Genitourinary External exam: Lesions - multiple shallow ulcers, Other - left inferior labia abscess Vaginal bleeding: None - Back Back: Normal, Nontender - Extremities General upper extremity: Normal inspection, Nontender, Normal color, Normal ROM , Normal temperature General lower extremity: Normal inspection, Nontender, Normal color, Normal ROM , Normal temperature, Normal weight bearing. No: Ja's sign - Neurological Neuro grossly intact: Yes Cognition: Normal Orientation: AAOx4 Abiquiu Coma Scale Eye Opening: Spontaneous Williams Coma Scale Verbal: Oriented [place]iqu[place] Coma Scale Motor: Obeys Commands Williams Coma Scale Total: 15 Speech: Normal Motor strength normal: LUE, RUE, LLE, RLE Sensory: Normal - Psychological Associated symptoms: Normal affect, Normal mood - Skin Skin Temperature: Warm Skin Moisture: Dry Skin Color: Normal Course - Re-evaluation Re-evalutation: 10/12/17 pt wants to leave after the IV fluid, accucheck down to 293, wet pre: BV, will treat for possible HSV, gonorrhea, chlamydia pending the results. Will also prescribe more lidocaine for pain topically, and metformin that she is supposed to be taking. - Vital Signs Vital signs: Temp Pulse Resp BP Pulse Ox 97.8 F 81 21 H 118/73 97 10/12/17 09:29 10/12/17 09:29 10/12/17 14:00 10/12/17 13:32 10/12/17 12:40 - Laboratory Result Diagrams: 10/12/17 10:20 10/12/17 13:40 Laboratory results interpreted by me: 10/12/17 10/12/17 10/12/17 10:06 10:20 10:20 RDW 15.3 H Creatinine Glucose POC Glucose > 550 H* ALT Alkaline Phosphatase Urine Glucose (UA) >=500 H Urine Blood SMALL H Ur Leukocyte Esterase SMALL H 10/12/17 10/12/17 10/12/17 12:01 13:40 16:41 RDW Creatinine 0.45 L Glucose 394 H POC Glucose 484 H* 293 H ALT 54 H Alkaline Phosphatase 186 H Urine Glucose (UA) Urine Blood Ur Leukocyte Esterase Procedures - Incision and Drainage Left Labia Time completed: 15:50 Type: Simple Anesthetic type: 1% Lidocaine mL's of anesthetic: 4 Blade size: 11 I&D procedure: Sterile dressing applied Incision Method: Incision made by scalpel - small x cut Amount/type of drainage: small pus Discharge - Discharge Clinical Impression: Inferior left labia abscess I and D, Introitus ulcerations, Hyperglycemia, Heroin addiction, introitus ulcers, Bacterial vaginosis Condition: Good Disposition: HOME, SELF-CARE Instructions: Abscess ([facility]), Cephalexin ([facility]), Genital Herpes ([facility]), Hyperglycemia ([facility]), Metronidazole ([facility]), Rocephin ([facility]), Topical Lidocaine ([facility] ), Warm Packs ([facility]) Additional Instructions: sitz bath in warm water topical lidocaine to numb the skin acyclovir for the possible herpes I treated you for possible gonorrhea and chlamydia those cultures are pending Metronidazole twice a day for bacterial vaginosis, do not drink alcohol while you take this Cephalexin for the left labial abscess that was incised. Return to the emergency room if symptoms worsen Prescriptions: Acyclovir [Acyclovir 400 mg Tablet] 400 mg PO TID 7 Days #21 tablet Cephalexin Monohydrate [Keflex 500 mg Capsule] 500 mg PO QID #30 capsule Metformin HCl 500 mg PO BID #60 tablet Metronidazole 500 mg PO BID #14 tablet
[2017-10-12] MEDS ORDERED: ACETAMINOPHEN 100 ML IV ONE (13:35)
[2017-10-12 14:10] VITALS: BP 118/73
[2017-10-12] MEDS ORDERED: LIDOCAINE 2% JELLY 5 ML TUBE TOP ONE ×2 (14:16→17:06)
[2017-10-12] MEDS ORDERED: CEPHALEXIN 500 MG CAPSULE PO ONE (14:19)
[2017-10-12] MEDS ORDERED: CEFTRIAXONE INJ 250 MG VIAL IV ONE (14:19)
[2017-10-12] MEDS ORDERED: AZITHROMYCIN 250 MG TABLET PO ONE (14:19)
[2017-10-12] MEDS ORDERED: ONDANSETRON 4 MG TAB.RAPDIS PO ONE (14:19)
[2017-10-12 14:22] LABS: ALANINE AMINOTRANSFERASE 54 U/L (9-52); ALBUMIN 3.7 g/dL (3.5-5.0); ALKALINE PHOSPHATASE 186 U/L (38-126); ANION GAP 6 (5-19); ASPARTATE AMINO TRANSFERASE 21 U/L (14-36); BILIRUBIN,DIRECT 0.2 mg/dL (0.0-0.4); BILIRUBIN,TOTAL 0.3 mg/dL (0.2-1.3); BLOOD UREA NITROGEN 9 mg/dL (7-20); CALCIUM 9.4 mg/dL (8.4-10.2); CARBON DIOXIDE 28 mmol/L (22-30); CHLORIDE 104 mmol/L (98-107); GLUCOSE 394 mg/dL (75-110); POTASSIUM 4.2 mmol/L (3.6-5.0); SODIUM 138.4 mmol/L (137-145); TOTAL PROTEIN 6.7 g/dL (6.3-8.2)
[2017-10-12] MEDS ORDERED: ACYCLOVIR 200 MG CAPSULE PO ONE (15:12)
[2017-10-12] MEDS ORDERED: LIDOCAINE 2% JELLY 30 ML TUBE TOP ONE (15:13)
[2017-10-12] MEDS ORDERED: MORPHINE SULFATE 10 MG/ML INJ IV ONE (15:13)
[2017-10-12 15:28] LABS: BACTERIA (WET MOUNT) 3+ BACTERIA SEEN; EPITHELIALS (WET MOUNT) 4+ EPITHELIALS SEEN; RBCS (WET MOUNT) FEW RBCS SEEN; T.VAGINALIS (WET MOUNT) NO TRICHOMONAS SEEN; WBCS (WET MOUNT) 1+ WBCS SEEN; YEAST (WET MOUNT) BUDDING YEAST SEEN
[2017-10-12 17:32] LABS: CHLAM PCR NOT DETECTED (NOT DETECT); GON PCR NOT DETECTED (NOT DETECT)
== END 2017-10-12 17:19 | disposition home or self-care (01) ==
LOC: ER 09:13
PROC: 0U9MXZZ Drainage of Vulva, External Approach (ICD-10-PCS; principal; 2017-10-12)
DX: N76.4 Abscess of vulva (principal); N76.5 Ulceration of vagina; N76.0 Acute vaginitis; B96.89 Other specified bacterial agents as the cause of diseases classified elsewhere; E10.65 Type 1 diabetes mellitus with hyperglycemia; F11.20 Opioid dependence, uncomplicated; M79.603 Pain in arm, unspecified; R10.2 Pelvic and perineal pain; Z72.51 High risk heterosexual behavior; F17.200 Nicotine dependence, unspecified, uncomplicated; J45.909 Unspecified asthma, uncomplicated
CPT/HCPCS: 99283; 96361; 96375; 96365; 36415; 87070; 87205; 87210; 82962; 85025; 81025; 87077; 80053; 81001; 87250; 87186; 87491; 87591; 56405; S0119; J2270; J7030; J0696; J0131

== ENCOUNTER → 2017-11-03 | Outpatient (CLI) | payer OTHER ==
[2017-11-03 11:12] LABS: ALANINE AMINOTRANSFERASE 29 U/L (9-52); ALBUMIN 3.9 g/dL (3.5-5.0); ALKALINE PHOSPHATASE 79 U/L (38-126); ANION GAP 9 (5-19); ASPARTATE AMINO TRANSFERASE 25 U/L (14-36); BILIRUBIN,DIRECT 0.2 mg/dL (0.0-0.4); BILIRUBIN,TOTAL 0.2 mg/dL (0.2-1.3); BLOOD UREA NITROGEN 7 mg/dL (7-20); CALCIUM 9.7 mg/dL (8.4-10.2); CARBON DIOXIDE 30 mmol/L (22-30); CHLORIDE 99 mmol/L (98-107); CHOLESTEROL 205.16 mg/dL (0-200); GLUCOSE 242 mg/dL (75-110); POTASSIUM 4.2 mmol/L (3.6-5.0); SODIUM 138.4 mmol/L (137-145); TOTAL PROTEIN 6.8 g/dL (6.3-8.2); TRIGLYCERIDES 205 mg/dL (<150)
[2017-11-03 11:23] LABS: DIRECT LDL 124 mg/dL (<100)
[2017-11-04 10:38] LABS: HEPATITIS A AB IGM Negative (Negative); HEPATITIS B CORE AB IGM Negative (Negative); HEPATITS B SURFACE ANTIGEN Negative (Negative)
[2017-11-04 15:16] LABS: HEPATITIS C VIRUS ANTIBODY >11.0 s/co ratio (0.0-0.9)
== END ==
LOC: CCC 09:10
DX: E10.8 Type 1 diabetes mellitus with unspecified complications (principal)
CPT/HCPCS: 36415; 80053; 80061; 80074; 83036; 84443

== ENCOUNTER 2018-02-09 14:43 | Emergency (ER) | payer OTHER ==
[2018-02-09 15:12] VITALS: BP 121/68
--- NOTE | 2018-02-09 16:21 | ER Document Report ---
ED General - General Chief Complaint: Vaginal Itching Stated Complaint: BLOOD SUGAR ISSUES Time Seen by Provider: 02/09/18 16:07 Mode of Arrival: Ambulatory Information source: Patient Notes: Chief complaint: Low blood sugar History of complain:( obtained from----patient) 32 years old female with a history of diabetes which were uncontrolled for a long time hemoglobin A1c was 15 last time, she was put on Lantus recently. Which was controlling the blood sugar fairly well around 95 215 average. For the last few weeks Last night she took her Lantus around 9:00 but did not go to sleep till 2:00 was doing activities. This morning her sugar was 65 and started feeling dizzy, took some orange juice felt better. Wanted to come in check , this happened. She also having cottage cheese like vaginal discharge. No other constitutional symptoms Onset: As above Duration: One day Severity: Mild to moderate Quality: Not applicable Context: Not applicable Exacerbating factor and relieving factors: Not applicable REVIEW OF SYSTEMS: CONSTITUTIONAL : Denies fever, chills, or sweats. Denies recent illness. EENT: Denies eye, ear, throat, or mouth pain or symptoms. Denies nasal or sinus congestion or discharge. Denies throat, tongue, or mouth swelling or difficulty swallowing. CARDIOVASCULAR: Denies chest pain. Denies palpitations or racing or irregular heart beat. Denies ankle edema. RESPIRATORY: Denies cough, cold, or chest congestion. Denies shortness of breath, difficulty breathing, or wheezing. GASTROINTESTINAL: Denies distention. Denies nausea, vomiting, or diarrhea. Denies blood in vomitus, stools, or per rectum. Denies black, tarry stools. Denies constipation. GENITOURINARY: Denies difficulty urinating, painful urination, burning, frequency, blood in urine, or discharge. FEMALE GENITOURINARY: Denies vaginal bleeding, heavy or abnormal periods, irregular periods. Denies vaginal discharge or odor. MUSCULOSKELETAL: Denies back or neck pain or stiffness. Denies joint pain or swelling. SKIN: Denies rash, lesions or sores. HEMATOLOGIC : Denies easy bruising or bleeding. LYMPHATIC: Denies swollen, enlarged glands. NEUROLOGICAL: Denies confusion or altered mental status. Denies passing out or loss of consciousness. Denies dizziness or lightheadedness. Denies headache. Denies weakness or paralysis or loss of use of either side. Denies problems with gait or speech. Denies sensory loss, numbness, or tingling. Denies seizures. PSYCHIATRIC: Denies anxiety or stress. Denies depression, suicidal ideation, or homicidal ideation. ALL OTHER SYSTEMS REVIEWED AND NEGATIVE. PHYSICAL EXAMINATION: GENERAL: Well-appearing, well-nourished and in no acute distress. Obesity HEAD: Atraumatic, normocephalic. EYES: Pupils equal round and reactive to light, extraocular movements intact, conjunctiva are normal. ENT: Nares patent, oropharynx clear without exudates. Moist mucous membranes. NECK: Normal range of motion, supple without lymphadenopathy LUNGS: Breath sounds clear to auscultation bilaterally and equal. No wheezes rales or rhonchi. HEART: Regular rate and rhythm without murmurs ABDOMEN: Soft, nontender, nondistended abdomen. No guarding, no rebound. No masses appreciated. Examination of genitals-deferred Musculoskeletal: Normal range of motion, no pitting or edema. No cyanosis. NEUROLOGICAL: Cranial nerves grossly intact. Normal speech, normal gait. Normal sensory, motor exams PSYCH: Normal mood, normal affect. SKIN: Warm, Dry, normal turgor, no rashes or lesions noted. Dictation was performed using [employer] voice recognition software TRAVEL OUTSIDE OF THE [place] IN LAST 30 DAYS: No - Related Data Allergies/Adverse Reactions: infliximab [From Remicade] Allergy (Severe, Verified 10/12/17 10:04) Anaphylaxis clindamycin [Clindamycin] Allergy (Verified 10/12/17 10:04) sulfamethoxazole [From Bactrim] Allergy (Verified 10/12/17 10:04) trimethoprim [From Bactrim] Allergy (Verified 10/12/17 10:04) codeine [Codeine] Adverse Reaction (Mild, Verified 10/12/17 10:04) NSAIDS (Non-Steroidal Anti-Inflamma Adverse Reaction (Verified 10/12/17 10:04) Past Medical History - Social History Smoking Status: Former Smoker Chew tobacco use (# tins/day): No Smoking Education Provided: No Frequency of alcohol use: Rare Drug Abuse: Other - She was on drug rehabilitation program and free of any use for the last 6 months Family History: COPD, DM, Malignancy - Past Medical History Cardiac Medical History: Denies: Hx Coronary Artery Disease, Hx Heart Attack, Hx Hypertension Pulmonary Medical History: Reports: Hx Asthma Denies: Hx Bronchitis, Hx COPD, Hx Pneumonia Neurological Medical History: Reports: Hx Migraine, Hx Seizures - BLOOD SUGAR GOT TOO LOW. Denies: Hx Cerebrovascular Accident Endocrine Medical History: Reports: Hx Diabetes Mellitus Type 1 Renal/ Medical History: Denies: Hx Peritoneal Dialysis GI Medical History: Reports: Hx Gastroesophageal Reflux Disease, Hx Ulcerative Colitis Musculoskeletal Medical History: Denies Hx Arthritis, Reports Hx Fibromyalgia, Reports Hx Musculoskeletal Trauma Psychiatric Medical History: Reports: Hx Anxiety, Hx Depression Traumatic Medical History: Reports: Hx Fractures Past Surgical History: Reports: Hx Section - x1, Hx Tubal Ligation. Denies: Hx Pacemaker - Immunizations Hx Diphtheria, Pertussis, Tetanus Vaccination: Yes Review of Systems - Review of Systems Notes: Dictated Physical Exam - Vital signs Vitals: Temp Pulse Resp BP Pulse Ox 98.5 F 93 20 121/68 90 L 02/09/18 15:11 02/09/18 15:11 02/09/18 15:11 02/09/18 15:11 02/09/18 15:11 - Notes Notes: Dictated Course - Re-evaluation Re-evalutation: 02/09/18 16:19 She was explained the process of hypoglycemia, informed that take the Lantus at bedtime. - Vital Signs Vital signs: Temp Pulse Resp BP Pulse Ox 98.5 F 93 20 121/68 90 L 02/09/18 15:11 02/09/18 15:11 02/09/18 15:11 02/09/18 15:11 02/09/18 15:11 Discharge - Discharge Clinical Impression: Diabetes 1.5, managed as type 2, Hypoglycemia, Vaginal candidiasis Condition: Fair Disposition: HOME, SELF-CARE Instructions: Diabetes ([facility]) Prescriptions: Fluconazole [Diflucan] 150 mg PO ONCE PRN #1 tablet PRN Reason: Referrals: [facility] [Primary Care Provider] - Follow up as needed
== END 2018-02-09 16:34 | disposition home or self-care (01) ==
LOC: ER 14:43
DX: L29.2 Pruritus vulvae (principal); E10.9 Type 1 diabetes mellitus without complications; Z79.4 Long term (current) use of insulin; Z87.891 Personal history of nicotine dependence; Z88.3 Allergy status to other anti-infective agents; Z88.6 Allergy status to analgesic agent; Z98.51 Tubal ligation status
CPT/HCPCS: 99283

== ENCOUNTER 2018-02-21 11:17 | Emergency (ER) | payer OTHER ==
[2018-02-21 11:56] VITALS: BP 120/74
--- NOTE | 2018-02-21 14:30 | ER Document Report ---
ED General - General Chief Complaint: Sore Throat Stated Complaint: SORE THROAT Time Seen by Provider: 02/21/18 14:27 Mode of Arrival: Ambulatory Information source: Patient TRAVEL OUTSIDE OF THE [place] IN LAST 30 DAYS: No - HPI Notes: 28 for a female presents to the ED for evaluation of sore throat 1 day. Patient also was treated by the health department 1 week ago for syphilis, given appropriate antibiotic therapy on March 17. Patient has not been sexually active since that time. Patient thought she saw weight down the back of her throat. Denies any pain to throat. Denies any issues with speaking , breathing, denies any issues with swallowing. Eating and drinking without issues. Has not tried any salt water gargles or other [id number] medications. Patient needs a note saying she can go to her sober living house, they will not take her unless she has a note saying she has been treated for syphilis and had to wait 7 days before being cleared to go to treatment center. Denies fevers, chills, chest pain,palpitations, shortness of breath, dyspnea , nausea, vomiting, diarrhea, abdominal pain, hematuria,blurred vision, double vision, loss of vision, speech changes, LH, dizziness, syncope, headaches, wheezing, URI, neck pain, weakness, bowel or bladder dysfunction, saddle anesthesia, numbness or tingling in bilateral upper or lower extremities equally , muscle paralysis, weakness in bilateral upper or lower extremities equally or rash. Denies IV drug use. - Related Data Allergies/Adverse Reactions: infliximab [From Remicade] Allergy (Severe, Verified 10/12/17 10:04) Anaphylaxis clindamycin [Clindamycin] Allergy (Verified 10/12/17 10:04) sulfamethoxazole [From Bactrim] Allergy (Verified 10/12/17 10:04) trimethoprim [From Bactrim] Allergy (Verified 10/12/17 10:04) codeine [Codeine] Adverse Reaction (Mild, Verified 10/12/17 10:04) NSAIDS (Non-Steroidal Anti-Inflamma Adverse Reaction (Verified 10/12/17 10:04) Past Medical History - General Information source: Patient - Social History Smoking Status: Current Every Day Smoker Family History: COPD, DM, Malignancy - Past Medical History Cardiac Medical History: Denies: Hx Coronary Artery Disease, Hx Heart Attack, Hx Hypertension Pulmonary Medical History: Reports: Hx Asthma Denies: Hx Bronchitis, Hx COPD, Hx Pneumonia Neurological Medical History: Reports: Hx Migraine, Hx Seizures - BLOOD SUGAR GOT TOO LOW. Denies: Hx Cerebrovascular Accident Endocrine Medical History: Reports: Hx Diabetes Mellitus Type 1 Renal/ Medical History: Denies: Hx Peritoneal Dialysis GI Medical History: Reports: Hx Gastroesophageal Reflux Disease, Hx Ulcerative Colitis Musculoskeletal Medical History: Denies Hx Arthritis, Reports Hx Fibromyalgia, Reports Hx Musculoskeletal Trauma Psychiatric Medical History: Reports: Hx Anxiety, Hx Depression Traumatic Medical History: Reports: Hx Fractures Past Surgical History: Reports: Hx Section - x1, Hx Tubal Ligation. Denies: Hx Pacemaker - Immunizations Hx Diphtheria, Pertussis, Tetanus Vaccination: Yes Review of Systems - Review of Systems Constitutional: No symptoms reported EENT: See HPI Cardiovascular: No symptoms reported Respiratory: No symptoms reported Gastrointestinal: No symptoms reported Genitourinary: No symptoms reported Female Genitourinary: No symptoms reported Musculoskeletal: No symptoms reported Skin: No symptoms reported Hematologic/Lymphatic: No symptoms reported Neurological/Psychological: No symptoms reported Physical Exam - Vital signs Vitals: Temp Pulse Resp BP Pulse Ox 98.3 F 86 14 120/74 100 02/21/18 11:56 02/21/18 11:56 02/21/18 11:56 02/21/18 11:56 02/21/18 11:56 - Notes Notes: PHYSICAL EXAMINATION: GENERAL: Well-appearing, well-nourished and in no acute distress. HEAD: Atraumatic, normocephalic. EYES: Pupils equal round and reactive to light, extraocular movements intact, conjunctiva are normal. ENT: tympanic membranes are normal appearing with pearly color, normal- appearing landmarks and normal light reflex. Hearing is grossly intact. Has normal facial sensation to light touch in 3 branches of the trigeminal nerve. Normal facial movement. No clicking or popping when jaw opens or closes. The nasal mucosa is moist. The septum is midline. There is no evidence of septal hematoma. The turbinates are without abnormality. No obvious abnormalities to the lips. No swelling no erythema no exudate no angioedema no drooling no trismus bilateral arches equal. Uvula midline. The salivary glands appear unremarkable. The tongue is midline. The posterior pharynx is without erythema or exudate. The tonsils are normal appearing. NECK: Normal range of motion, supple without lymphadenopathy LUNGS: Breath sounds clear to auscultation bilaterally and equal. No wheezes rales or rhonchi. HEART: Regular rate and rhythm without murmurs ABDOMEN: Soft, nontender, nondistended abdomen. No guarding, no rebound. No masses appreciated. Female : deferred Musculoskeletal: Normal range of motion, no pitting or edema. No cyanosis. NEUROLOGICAL: Cranial nerves grossly intact. Normal speech, normal gait. Normal sensory, motor exams PSYCH: Normal mood, normal affect. SKIN: Warm, Dry, normal turgor, no rashes or lesions noted. Course - Re-evaluation Re-evalutation: 02/21/18 16:46 32-year-old female is afebrile vitals stable no distress for evaluation of pharyngitis. Presentation of 1 day of sore throat in an otherwise well- appearing patient. Rapid strep is negative. History and exam are not consistent with a retropharyngeal abscess or peritonsillar abscess. Airway is patent. No difficulty handling oral secretions. Vitals within normal limits. Patient was treated with a dose of dexamethasone and advised on symptomatic care. Suspect likely viral pharyngitis. At this time will discharge with return precautions and follow-up recommendations. Verbal discharge instructions given a the bedside and opportunity for questions given. Medication warnings reviewed. Patient is in agreement with this plan and has verbalized understanding of return precautions and the need for primary care follow-up in the next 24-72 hours. - Vital Signs Vital signs: Temp Pulse Resp BP Pulse Ox 98.3 F 86 14 120/74 100 02/21/18 11:56 02/21/18 11:56 02/21/18 11:56 02/21/18 11:56 02/21/18 11:56 Discharge - Discharge Clinical Impression: Viral pharyngitis Condition: Stable Disposition: HOME, SELF-CARE Instructions: Sore Throat ([facility]) Forms: Special Work Note Referrals: GINETTE CARL MD [Primary Care Provider] - Follow up as needed
== END 2018-02-21 16:08 | disposition home or self-care (01) ==
LOC: ER 11:17
DX: J02.9 Acute pharyngitis, unspecified (principal); B97.89 Other viral agents as the cause of diseases classified elsewhere; E10.9 Type 1 diabetes mellitus without complications; J45.909 Unspecified asthma, uncomplicated; F17.200 Nicotine dependence, unspecified, uncomplicated
CPT/HCPCS: 87070; 87880; 99282

== ENCOUNTER 2018-06-18 12:52 | Emergency (ER) | payer OTHER | END 2018-06-18 13:20 | disposition left against medical advice (07) | LOC: ER 12:52 | DX: Z53.21 Procedure and treatment not carried out due to patient leaving prior to being seen by health care provider (principal) ==

== ENCOUNTER 2018-06-18 14:31 | Emergency (ER) | payer OTHER ==
--- NOTE | 2018-06-18 15:10 | ER Document Report ---
ED General - General Chief Complaint: Overdose Stated Complaint: POSSIBLE OVERDOSE Time Seen by Provider: 06/18/18 14:38 TRAVEL OUTSIDE OF THE [place] IN LAST 30 DAYS: No - HPI Notes: Patient is a 33-year-old female with a history of insulin-dependent diabetes who presents to the ED for heroin overdose by EMS. Patient states that she was here in the emergency department the waiting room for right knee pain which has been chronic/recurrent. Patient states that she left without being seen. Patient states that she went to [facility] and injected heroin to try to get rid of her pain in her knee. She states that she was not suicidal or homicidal and did not intend to overdose as she did. EMS arrived and she was cyanotic. They did bag her for about 1.5 minutes, but did not have to perform compressions. They did give 2 mg of Narcan. Patient states that aside from the right knee pain she feels well currently. She does have family life stressors at home. She has no other concerns or complaints at this time. Patient states that she is requesting to leave so that she can get her ID as well as her money. Denies any headache, fever, head injury, neck pain, URI, sore throat, chest pain, palpitations, syncope, cough, shortness of breath, wheeze, dyspnea, abdominal pain, nausea/vomiting/diarrhea, urinary retention, dysuria, hematuria, loss of control of bowel or bladder, numbness/tingling, saddle anesthesia, muscle paralysis/weakness, or rash. - Related Data Allergies/Adverse Reactions: infliximab [From Remicade] Allergy (Severe, Verified 10/12/17 10:04) Anaphylaxis clindamycin [Clindamycin] Allergy (Verified 10/12/17 10:04) sulfamethoxazole [From Bactrim] Allergy (Verified 10/12/17 10:04) trimethoprim [From Bactrim] Allergy (Verified 10/12/17 10:04) codeine [Codeine] Adverse Reaction (Mild, Verified 10/12/17 10:04) NSAIDS (Non-Steroidal Anti-Inflamma Adverse Reaction (Verified 10/12/17 10:04) Past Medical History - Social History Smoking Status: Current Every Day Smoker Chew tobacco use (# tins/day): No Frequency of alcohol use: Social Drug Abuse: Heroin Family History: COPD, DM, Malignancy Patient has suicidal ideation: No Patient has homicidal ideation: No - Past Medical History Cardiac Medical History: Denies: Hx Coronary Artery Disease, Hx Heart Attack, Hx Hypertension Pulmonary Medical History: Reports: Hx Asthma Denies: Hx Bronchitis, Hx COPD, Hx Pneumonia Neurological Medical History: Reports: Hx Migraine, Hx Seizures - BLOOD SUGAR GOT TOO LOW. Denies: Hx Cerebrovascular Accident Endocrine Medical History: Reports: Hx Diabetes Mellitus Type 1 Renal/ Medical History: Denies: Hx Peritoneal Dialysis GI Medical History: Reports: Hx Gastroesophageal Reflux Disease, Hx Ulcerative Colitis Musculoskeletal Medical History: Denies Hx Arthritis, Reports Hx Fibromyalgia, Reports Hx Musculoskeletal Trauma Psychiatric Medical History: Reports: Hx Anxiety, Hx Depression Traumatic Medical History: Reports: Hx Fractures Past Surgical History: Reports: Hx Section - x1, Hx Tubal Ligation. Denies: Hx Pacemaker - Immunizations Hx Diphtheria, Pertussis, Tetanus Vaccination: Yes Review of Systems - Review of Systems -: Yes All other systems reviewed and negative Physical Exam - Vital signs Vitals: Temp Pulse Resp BP Pulse Ox 98 F 91 14 117/78 96 06/18/18 14:52 06/18/18 14:52 06/18/18 14:52 06/18/18 14:52 06/18/18 14:52 - Notes Notes: PHYSICAL EXAMINATION: GENERAL: Well-appearing, well-nourished and in no acute distress. A&Ox4. Answers questions appropriately, but a big sluggish yet. HEAD: Atraumatic, normocephalic. Non-tender. EYES: Pupils equal round and reactive to light (not quite pinpoint), extraocular movements intact, sclera anicteric, conjunctiva are normal. No nystagmus. vis mane intact. ENT: EAC clear b/l. TM's intact b/l without erythema, fluid, or perforation. Nares patent and without discharge. oropharynx clear without exudates. No tonsilar hypertrophy or erythema. Moist mucous membranes. No sinus tenderness. NECK: Normal range of motion, supple without lymphadenopathy. No rigidity/ meningismus. No midline tenderness. LUNGS: Breath sounds clear to auscultation bilaterally and equal. No wheezes rales or rhonchi. HEART: Regular rate and rhythm without murmurs, rubs, gallops. ABDOMEN: Soft, nontender, nondistended abdomen. No guarding, no rebound. Normal bowel sounds present. No CVA tenderness bilaterally. Musculoskeletal: Rt knee: + effusion noted without warmth or erythema. LROM due to swelling. N/v intact distal. + mild tenderness superiorly. Ext's b/l: FROM to passive/active. Strength 5+/5. No deficits noted. No bony tenderness of extremities. Extremities: No cyanosis, clubbing, or edema b/l. Peripheral pulses 2+. Capillary refill less than 2 seconds. NEUROLOGICAL: NIH 0. GCS 15. Cranial nerves grossly intact. Normal speech, limping gait (rt knee). Normal sensory, motor exams. Reflexes 2+ b/l. BECKY's negative. Pronator drift negative. Heel/parekh, finger/nose wnl. I did see the patient walk to the bathroom without instability noted. PSYCH: flat affect SKIN: Warm, Dry, normal turgor, no rashes or lesions noted aside from tract boykin. Course - Re-evaluation Re-evalutation: 06/18/18 14:[address] Bey. Pt is currently A&O x4. No focal neurological deficits noted, but is a bit sluggish with her speech and movements. We will observe the patient for the next 2 hours +/-. 06/18/18 16:27 Patient is an afebrile, well-hydrated, 33-year-old female who presents to the ED with an overdose on heroin prior to arrival. Vitals are currently acceptable without any significant tachycardia, tachypnea, hypoxia, or hypotension. PE is otherwise unremarkable for any focal neurological deficits. Patient is nontoxic-appearing and is tolerating p.o. without difficulty. Patient is alert and oriented and has been able to ambulate to and from the bathroom without any instability. Toradol was given IV for her knee pain and the effusion noted without evidence of septic joint, fracture/dislocation. This is a chronic recurrent issue and patient to see orthopedics. No further labs or imaging warranted at this time. There is no current evidence of life- threatening disease or illness present at this time. Patient has not regressed status post overdose reversal. Recheck with your PCM as able this week. Return to the ED with any worsening/concerning symptoms otherwise as reviewed discharge. Patient is in agreement. [employer] is present and states there is a warrant out for her arrest and will be taking her from here. - Vital Signs Vital signs: Temp Pulse Resp BP Pulse Ox 98 F 91 14 117/78 96 06/18/18 14:52 06/18/18 14:52 06/18/18 14:52 06/18/18 14:52 06/18/18 14:52 Discharge - Discharge Clinical Impression: Overdose Qualifiers: Encounter type: initial encounter Injury intent: accidental or unintentional Qualified Code(s): T50.901A - Poisoning by unspecified drugs, medicaments and biological substances, accidental (unintentional), initial encounter Condition: Stable Disposition: HOME, SELF-CARE Instructions: Overdose ([facility]) Additional Instructions: Maintain adequate fluid and food intake Avoid drug use and seek medical attention for rehab if needed Healthy diet Exercise regularly Monitor symptoms for any acute changes Recheck with your PCM in 3-5 days Return to the ED with any worsening symptoms and/or development of fever, headache, chest pain, palpitations, syncope, shortness of breath, trouble breathing, abdominal pain, n/v/d, blood in stool/urine, loss of control of bowel /bladder, urinary retention, muscle weakness/paralysis, numbness/tingling, or other worsening symptoms that are concerning to you. Forms: Smoking Cessation Education Referrals: GINETTE CARL MD [Primary Care Provider] - Follow up as needed [facility] [Provider Group] - Follow up as needed
[2018-06-18] MEDS ORDERED: KETOROLAC TROMETHAMINE INJ/PF 30 MG/1 ML SDV IV ONE (16:18)
[2018-06-18 16:41] VITALS: BP 101/73
== END 2018-06-18 16:41 ==
LOC: ER 14:31
DX: T40.1X1A Poisoning by heroin, accidental (unintentional), initial encounter (principal); X58.XXXA Exposure to other specified factors, initial encounter; F17.200 Nicotine dependence, unspecified, uncomplicated; E10.9 Type 1 diabetes mellitus without complications; Z79.4 Long term (current) use of insulin; Z88.3 Allergy status to other anti-infective agents; Z88.6 Allergy status to analgesic agent; Z98.51 Tubal ligation status
CPT/HCPCS: 99284; 96374; J1885

== ENCOUNTER → 2018-07-06 | Outpatient (CLI) | payer OTHER ==
--- NOTE | 2018-07-06 12:54 | RADIOLOGY REPORT (SQ) ---
EXAM DESCRIPTION: KNEE BILAT AP UPRIGHT COMPLETED DATE/TIME: 07/06/2018 12:23 pm REASON FOR STUDY: M17.0 BILATERAL PRIMARY OSTEOARTHRITIS OF KNEE M17.0 BILATERAL PRIMARY OSTEOARTHR ITIS OF KNEE R50.9 FEVER, UNSPECIFIED COMPARISON: None. NUMBER OF VIEWS: One view. TECHNIQUE: AP standing bilateral knees. LIMITATIONS: None. FINDINGS: MINERALIZATION: Normal. RIGHT KNEE BONES: No acute fracture. No worrisome bone lesions. MEDIAL COMPARTMENT: Minimal osteophytes. No joint space narrowing. No chondrocalcinosis. LATERAL COMPARTMENT: No significant osteophytes. No joint space narrowing. No chondrocalcinosis. LEFT KNEE BONES: No acute fracture. No worrisome bone lesions. MEDIAL COMPARTMENT: No significant osteophytes. No joint space narrowing. No chondrocalcinosis. LATERAL COMPARTMENT: No significant osteophytes. No joint space narrowing. No chondrocalcinosis. IMPRESSION: MINIMAL OSTEOPHYTES IN THE MEDIAL COMPARTMENT OF THE RIGHT KNEE. NO OTHER SIGNIFICANT F INDINGS. TECHNICAL DOCUMENTATION: JOB ID: [id number] [employer]- All Rights Reserved Reading location - IP/workstation name: [facility] [email or web address]
== END ==
LOC: RAD 12:05
DX: R50.9 Fever, unspecified (principal); M17.0 Bilateral primary osteoarthritis of knee; E11.8 Type 2 diabetes mellitus with unspecified complications; M25.761 Osteophyte, right knee
CPT/HCPCS: 73565

== ENCOUNTER → 2018-07-06 | Outpatient (CLI) | payer OTHER ==
[2018-07-06 12:06] LABS: ABSOLUTE BASOPHILS # (AUTO) 0.1 10^3/uL (0.0-0.2); ABSOLUTE EOSINOPHILS # (AUTO) 0.3 10^3/uL (0.0-0.6); ABSOLUTE LYMPHOCYTES (AUTO) 1.6 10^3/uL (0.5-4.7); ABSOLUTE MONOCYTES (AUTO) 0.3 10^3/uL (0.1-1.4); ABSOLUTE NEUT (AUTO) 3.3 10^3/uL (1.7-8.2); EOSINOPHILS % (AUTO) 4.7 % (0-6); HEMATOCRIT 39.1 % (36.0-47.0); HEMOGLOBIN 13.2 g/dL (12.0-15.5); MEAN CORPUSCULAR HEMOGLOBIN 30.1 pg (27.0-33.4); MEAN CORPUSCULAR HGB CONC 33.8 g/dL (32.0-36.0); MEAN CORPUSCULAR VOLUME 89 fl (80-97); MONOCYTES % (AUTO) 6.1 % (3-13); PLATELET COUNT 394 10^3/uL (150-450); RED BLOOD COUNT 4.38 10^6/uL (3.72-5.28); RED CELL DISTRIBUTION WIDTH 14.9 % (11.5-14.0); SEGMENTED NEUTROPHILS % (AUTO) 59.2 % (42-78); TOTAL CELLS COUNTED % (AUTO) 100 %; WHITE BLOOD COUNT 5.6 10^3/uL (4.0-10.5)
[2018-07-06 12:11] LABS: APPEARANCE,URINE CLEAR; BILIRUBIN,URINE NEGATIVE (NEGATIVE); COLOR,URINE YELLOW; GLUCOSE, URINE >=500 mg/dL (NEGATIVE); KETONES,URINE NEGATIVE (NEGATIVE); LEUKOCYTE ESTERASE,URINE NEGATIVE (NEGATIVE); NITRITE,URINE NEGATIVE (NEGATIVE); PROTEIN,URINE NEGATIVE (NEGATIVE); URINE SPECIFIC GRAVITY 1.029
[2018-07-06 12:23] LABS: ALANINE AMINOTRANSFERASE 17 U/L (9-52); ALKALINE PHOSPHATASE 104 U/L (38-126); ANION GAP 10 (5-19); ASPARTATE AMINO TRANSFERASE 19 U/L (14-36); BILIRUBIN,DIRECT 0.4 mg/dL (0.0-0.4); BILIRUBIN,TOTAL 0.6 mg/dL (0.2-1.3); BLOOD UREA NITROGEN 8 mg/dL (7-20); CALCIUM 9.8 mg/dL (8.4-10.2); CARBON DIOXIDE 31 mmol/L (22-30); CHLORIDE 97 mmol/L (98-107); CHOLESTEROL 186.82 mg/dL (0-200); SODIUM 137.9 mmol/L (137-145); TOTAL PROTEIN 7.4 g/dL (6.3-8.2); TRIGLYCERIDES 161 mg/dL (<150); URIC ACID 4.3 mg/dL (2.5-7.0)
[2018-07-06 12:29] LABS: VLDL CHOLESTEROL 32.2 mg/dL (10-31)
[2018-07-06 12:34] LABS: DIRECT LDL 140 mg/dL (<100)
[2018-07-06 12:45] LABS: GLUCOSE 440 mg/dL (75-110)
[2018-07-06 12:52] LABS: ERYTHROCYTE SEDIMENTATION RATE 43 mm/hr (0-20)
== END ==
LOC: CCC 11:21
DX: R50.9 Fever, unspecified (principal); E11.8 Type 2 diabetes mellitus with unspecified complications
CPT/HCPCS: 36415; 80053; 80061; 81001; 83036; 84443; 84550; 85025; 85652; 87086; 87088

== ENCOUNTER → 2019-03-14 | Outpatient (CLI) | payer OTHER ==
[2019-03-14 13:35] LABS: ABSOLUTE BASOPHILS # (AUTO) 0.1 10^3/uL (0.0-0.2); ABSOLUTE EOSINOPHILS # (AUTO) 0.3 10^3/uL (0.0-0.6); ABSOLUTE MONOCYTES (AUTO) 0.4 10^3/uL (0.1-1.4); ABSOLUTE NEUT (AUTO) 4.1 10^3/uL (1.7-8.2); BASOPHILS % (AUTO) 0.9 % (0-2); HEMOGLOBIN 12.6 g/dL (12.0-15.5); LYMPHOCYTES % (AUTO) 28.5 % (13-45); MEAN CORPUSCULAR HEMOGLOBIN 32.4 pg (27.0-33.4); MEAN CORPUSCULAR VOLUME 93 fl (80-97); MONOCYTES % (AUTO) 6.3 % (3-13); PLATELET COUNT 353 10^3/uL (150-450); RED BLOOD COUNT 3.89 10^6/uL (3.72-5.28); RED CELL DISTRIBUTION WIDTH 13.2 % (11.5-14.0); SEGMENTED NEUTROPHILS % (AUTO) 59.3 % (42-78); TOTAL CELLS COUNTED % (AUTO) 100 %; WHITE BLOOD COUNT 6.8 10^3/uL (4.0-10.5)
[2019-03-14 13:55] LABS: ANION GAP 7 (5-19); BLOOD UREA NITROGEN 5 mg/dL (7-20); CALCIUM 9.6 mg/dL (8.4-10.2); CARBON DIOXIDE 28 mmol/L (22-30); CHLORIDE 102 mmol/L (98-107); GLUCOSE 188 mg/dL (75-110); POTASSIUM 4.4 mmol/L (3.6-5.0)
== END ==
LOC: CCC 12:37
DX: E11.9 Type 2 diabetes mellitus without complications (principal)
CPT/HCPCS: 36415; 80048; 85025; 86235

== ENCOUNTER 2019-07-24 12:40 | Emergency (ER) | payer SELFPAY ==
--- NOTE | 2019-07-24 12:59 | ER Document Report ---
ED Medical Screen (RME) - General Chief Complaint: Skin Problem Stated Complaint: SKIN PROBLEMS/POSSIBLE RASH Time Seen by Provider: 07/24/19 12:53 Primary Care Provider: [facility] [Primary Care Provider] - Follow up as needed Mode of Arrival: Ambulatory Notes: 34-year-old female presented to ED for lesions all over her body. She states she does use heroin the last time was 3 days ago. States that the heroin that she used a week ago there was blue. She states that some of the people told her there was heroin in it but she was told it was straight fentanyl. She states w hen she used the 2 people overdosed both were treated with Narcan. She states she did use cocaine and heroin 3 days ago. She states she has been home with sleep unable to do anything for the last 3 days. She states there is blisters all over to include her perineal area for the last 4 days I have greeted and performed a rapid initial assessment of this patient. A comprehensive ED assessment and evaluation of the patient, analysis of test results and completion of medical decision making process will be conducted by an additional ED providers. TRAVEL OUTSIDE OF THE [place] IN LAST 30 DAYS: No - Related Data Allergies/Adverse Reactions: infliximab [From Remicade] Allergy (Severe, Verified 07/24/19 12:54) Anaphylaxis clindamycin [Clindamycin] Allergy (Verified 07/24/19 12:54) sulfamethoxazole [From Bactrim] Allergy (Verified 07/24/19 12:54) trimethoprim [From Bactrim] Allergy (Verified 07/24/19 12:54) codeine [Codeine] Adverse Reaction (Mild, Verified 07/24/19 12:54) NSAIDS (Non-Steroidal Anti-Inflamma Adverse Reaction (Verified 07/24/19 12:54) Past Medical History - Past Medical History Cardiac Medical History: Denies: Hx Coronary Artery Disease, Hx Heart Attack, Hx Hypertension Pulmonary Medical History: Reports: Hx Asthma Denies: Hx Bronchitis, Hx COPD, Hx Pneumonia Neurological Medical History: Reports: Hx Migraine, Hx Seizures - BLOOD SUGAR GOT TOO LOW. Denies: Hx Cerebrovascular Accident Endocrine Medical History: Reports: Hx Diabetes Mellitus Type 1 Renal/ Medical History: Denies: Hx Peritoneal Dialysis GI Medical History: Reports: Hx Gastroesophageal Reflux Disease, Hx Ulcerative Colitis Musculoskeltal Medical History: Denies Hx Arthritis, Reports Hx Fibromyalgia, Reports Hx Musculoskeletal Trauma Psychiatric Medical History: Reports: Hx Anxiety, Hx Depression Traumatic Medical History: Reports: Hx Fractures Past Surgical History: Reports: Hx Section - x1, Hx Tubal Ligation. Denies: Hx Pacemaker - Immunizations Hx Diphtheria, Pertussis, Tetanus Vaccination: Yes Physical Exam - Vital signs Vitals: Temp Pulse Resp BP Pulse Ox 98.6 F 89 16 146/88 H 100 07/24/19 12:46 07/24/19 12:46 07/24/19 12:46 07/24/19 12:46 07/24/19 12:46 Course - Vital Signs Vital signs: Temp Pulse Resp BP Pulse Ox 98.6 F 89 16 146/88 H 100 07/24/19 12:46 07/24/19 12:46 07/24/19 12:46 07/24/19 12:46 07/24/19 12:46 Doctor's Discharge - Discharge Referrals: [facility] [Primary Care Provider] - Follow up as needed
[2019-07-24 13:38] LABS: ABSOLUTE LYMPHOCYTES (AUTO) 1.6 10^3/uL (0.5-4.7); ABSOLUTE MONOCYTES (AUTO) 0.4 10^3/uL (0.1-1.4); ABSOLUTE NEUT (AUTO) 5.5 10^3/uL (1.7-8.2); BASOPHILS % (AUTO) 0.7 % (0-2); EOSINOPHILS % (AUTO) 1.5 % (0-6); HEMATOCRIT 41.4 % (36.0-47.0); HEMOGLOBIN 14.1 g/dL (12.0-15.5); LYMPHOCYTES % (AUTO) 21.1 % (13-45); MEAN CORPUSCULAR HEMOGLOBIN 31.5 pg (27.0-33.4); MEAN CORPUSCULAR VOLUME 93 fl (80-97); MONOCYTES % (AUTO) 5.2 % (3-13); PLATELET COUNT 436 10^3/uL (150-450); RED BLOOD COUNT 4.47 10^6/uL (3.72-5.28); RED CELL DISTRIBUTION WIDTH 13.7 % (11.5-14.0); SEGMENTED NEUTROPHILS % (AUTO) 71.5 % (42-78); TOTAL CELLS COUNTED % (AUTO) 100 %; WHITE BLOOD COUNT 7.7 10^3/uL (4.0-10.5)
[2019-07-24 13:39] LABS: ABSOLUTE BASOPHILS # (AUTO) 0.1 10^3/uL (0.0-0.2); ABSOLUTE EOSINOPHILS # (AUTO) 0.1 10^3/uL (0.0-0.6)
[2019-07-24] MEDS ORDERED: LIDOCAINE 1% INJ-PF (10 MG/ML) 30 ML SDV INJ ONE (13:52)
[2019-07-24] MEDS ORDERED: CEFTRIAXONE INJ 250 MG VIAL IM ONE (13:52)
[2019-07-24] MEDS ORDERED: AZITHROMYCIN 250 MG TABLET PO ONE (13:52)
--- NOTE | 2019-07-24 13:56 | ER Document Report ---
ED General - General Chief Complaint: Skin Problem Stated Complaint: SKIN PROBLEMS/POSSIBLE RASH Time Seen by Provider: 07/24/19 12:53 Primary Care Provider: [facility] [NO LOCAL MD] - Follow up as needed Mode of Arrival: Ambulatory TRAVEL OUTSIDE OF THE [place] IN LAST 30 DAYS: No - HPI Notes: Patient is a 34-year-old female with a history of DM and IV drug abuse including heroin and cocaine with last use a few days ago who presents complaining of having lesions to her skin over the past 1 to 2 weeks. Patient states that she is picking at these lesions regularly. She has noticed some lesions getting a little more red than others and it is to her face, arms, and trunk. Patient states that she would also like a test done for trichomonas. She is otherwise eating and drinking without difficulty. She is urinating normally and having normal bowel movements. Denies any headache, fever, neck pain, changes in vision/speech/mentation/hearing, URI, sore throat, chest pain, palpitations, syncope, cough, shortness of breath, wheeze, dyspnea, abdominal pain, nausea/vomiting/diarrhea, urinary retention, dysuria, hematuria, loss of control of bowel or bladder, numbness/tingling, saddle anesthesia, muscle paralysis/weakness. - Related Data Allergies/Adverse Reactions: infliximab [From Remicade] Allergy (Severe, Verified 07/24/19 12:54) Anaphylaxis clindamycin [Clindamycin] Allergy (Verified 07/24/19 12:54) sulfamethoxazole [From Bactrim] Allergy (Verified 07/24/19 12:54) trimethoprim [From Bactrim] Allergy (Verified 07/24/19 12:54) codeine [Codeine] Adverse Reaction (Mild, Verified 07/24/19 12:54) NSAIDS (Non-Steroidal Anti-Inflamma Adverse Reaction (Verified 07/24/19 12:54) Past Medical History - Social History Smoking Status: Current Every Day Smoker Drug Abuse: Heroin Family History: COPD, DM, Malignancy Patient has suicidal ideation: No Patient has homicidal ideation: No - Past Medical History Cardiac Medical History: Denies: Hx Coronary Artery Disease, Hx Heart Attack, Hx Hypertension Pulmonary Medical History: Reports: Hx Asthma Denies: Hx Bronchitis, Hx COPD, Hx Pneumonia Neurological Medical History: Reports: Hx Migraine, Hx Seizures - BLOOD SUGAR GOT TOO LOW. Denies: Hx Cerebrovascular Accident Endocrine Medical History: Reports: Hx Diabetes Mellitus Type 1 Renal/ Medical History: Denies: Hx Peritoneal Dialysis GI Medical History: Reports: Hx Gastroesophageal Reflux Disease, Hx Ulcerative Colitis Musculoskeletal Medical History: Denies Hx Arthritis, Reports Hx Fibromyalgia, Reports Hx Musculoskeletal Trauma Psychiatric Medical History: Reports: Hx Anxiety, Hx Depression Traumatic Medical History: Reports: Hx Fractures Past Surgical History: Reports: Hx Section - x1, Hx Tubal Ligation. Denies: Hx Pacemaker - Immunizations Hx Diphtheria, Pertussis, Tetanus Vaccination: Yes Review of Systems - Review of Systems -: Yes All other systems reviewed and negative Physical Exam - Vital signs Vitals: Temp Pulse Resp BP Pulse Ox 98.6 F 89 16 146/88 H 100 07/24/19 12:46 07/24/19 12:46 07/24/19 12:46 07/24/19 12:46 07/24/19 12:46 - Notes Notes: PHYSICAL EXAMINATION: GENERAL: Well-appearing, well-nourished and in no acute distress. HEAD: Atraumatic, normocephalic. EYES: Pupils equal round and reactive to light, extraocular movements intact, sclera anicteric, conjunctiva are normal. ENT: Nares patent and without discharge. oropharynx clear without exudates. No tonsilar hypertrophy or erythema. Moist mucous membranes. NECK: Normal range of motion, supple without lymphadenopathy LUNGS: Breath sounds clear to auscultation bilaterally and equal. No wheezes rales or rhonchi. HEART: Regular rate and rhythm without murmurs, rubs, gallops. ABDOMEN: Soft, nontender, nondistended abdomen. No guarding, no rebound. Normal bowel sounds present. No CVA tenderness bilaterally. Musculoskeletal: FROM to passive/active. Strength 5+/5. Extremities: No cyanosis, clubbing, or edema b/l. Peripheral pulses 2+. Capillary refill less than 3 seconds. NEUROLOGICAL: Cranial nerves grossly intact. Normal speech, normal gait. Normal sensory, motor exams PSYCH: Normal mood, normal affect. SKIN: Multiple scabbed areas on the arms, face, torso. No significant lesion with fluctuance or streaks. No purulent discharge noted. Course - Re-evaluation Re-evalutation: 07/24/19 14:44 Patient is an afebrile, well-hydrated, 34-year-old female who presents with skin picking and skin lesions most likely secondary to her IV drug abuse. She also has some bacterial vaginosis. Vitals are acceptable without significant tachycardia, tachypnea, hypoxia. PE is otherwise unremarkable. Abdomen is soft nontender throughout. Patient is nontoxic-appearing and is able to tolerate p.o. without difficulty. There is no incision and drainage warranted at this time. Chlamydia and gonorrhea tests are pending, but patient did receive Zithromax and Rocephin. Labs are otherwise unremarkable. No further work-up warranted at this time. Low suspicion for any necrotizing fasciitis, SJS, SSS, drug reaction, sepsis, meningitis, syphilis, Lyme disease, Cunningham spotted fever, acute appendicitis, bowel obstruction, acute cholecystitis, acute cholangitis, perforated diverticulitis, incarcerated hernia, pancreatitis, perforated ulcer, peritonitis, sepsis, pelvic inflammatory disease, ectopic , tubo-ovarian abscess, ovarian torsion, or other systemic emergent condition at this time. Patient is aware that her condition can change from initial presentation and she needs to monitor symptoms closely and seek medical attention if any acute changes. Conservative measures otherwise for symptoms. Recheck with OBGYN/PCM in 3-5 days. Consider consult with a dermatology. Retu rn to the ED with any worsening/concerning symptoms otherwise as reviewed in discharge. Patient is in agreement. - Vital Signs Vital signs: Temp Pulse Resp BP Pulse Ox 98.6 F 89 16 146/88 H 100 07/24/19 12:46 07/24/19 12:46 07/24/19 12:46 07/24/19 12:46 07/24/19 12:46 - Laboratory Result Diagrams: 07/24/19 13:15 07/24/19 13:15 Laboratory results interpreted by me: 07/24/19 07/24/19 13:15 13:15 Sodium 134.5 L Chloride 96 L BUN 5 L Creatinine 0.51 L Glucose 369 H Urine Protein 30 H Urine Glucose (UA) >=500 H Urine Blood SMALL H Leukocyte Esterase Rfl LARGE H Discharge - Discharge Clinical Impression: Skin lesions, Skin picking habit, Bacterial vaginosis Condition: Stable Disposition: HOME, SELF-CARE Additional Instructions: Keep the skin clean Wash with soap and water Tylenol/ibuprofen if needed Triple antibiotic ointment daily Take medication as directed Monitor for any worsening symptoms Check in with the health department this week for further testing if warranted Your chlamydia/gonorrhea tests are pending and you will be notified if positive results; you may call in 1 day for the results as well F/u with your PCM/OBGYN/dermatology in 3-5 days for a recheck Return to the ED with any development of CORNEJO/fever, trouble with vision, eye redness, worsening pain, urethral discharge, urinary retention, blood in the urine, flank pain, abdominal pain, n/v, Chest Pain, shortness of breath, joint pains, trouble breathing, abscess, purulent discharge, red streaks, worsening swelling, or any other worsening/concerning symptoms as needed otherwise. Prescriptions: Doxycycline Hyclate 100 mg PO BID #20 capsule Metronidazole [Nuvessa] 5 gm VG DAILY 7 Days #7 gel.[email or web address] Forms: Elevated Blood Pressure, Smoking Cessation Education Referrals: [facility] [NO LOCAL MD] - Follow up as needed SADA MARINA DO [ACTIVE STAFF] - Follow up as needed [facility] [Provider Group] - Follow up as needed
[2019-07-24 13:58] LABS: APPEARANCE,URINE SLIGHTLY-CLOUDY; BILIRUBIN,URINE NEGATIVE (NEGATIVE); COLOR,URINE YELLOW; GLUCOSE, URINE >=500 mg/dL (NEGATIVE); KETONES,URINE NEGATIVE (NEGATIVE); PROTEIN,URINE 30 mg/dL (NEGATIVE); URINE SPECIFIC GRAVITY 1.026; UROBILINOGEN,URINE NEGATIVE mg/dL (<2.0)
[2019-07-24 13:59] LABS: ALBUMIN 3.7 g/dL (3.5-5.0); ALKALINE PHOSPHATASE 124 U/L (38-126); ANION GAP 11 (5-19); ASPARTATE AMINO TRANSFERASE 33 U/L (14-36); BILIRUBIN,DIRECT 0.2 mg/dL (0.0-0.4); BILIRUBIN,TOTAL 0.3 mg/dL (0.2-1.3); BLOOD UREA NITROGEN 5 mg/dL (7-20); CALCIUM 9.5 mg/dL (8.4-10.2); CARBON DIOXIDE 28 mmol/L (22-30); CHLORIDE 96 mmol/L (98-107); GLUCOSE 369 mg/dL (75-110); POTASSIUM 4.2 mmol/L (3.6-5.0); TOTAL PROTEIN 7.6 g/dL (6.3-8.2)
[2019-07-24 14:19] LABS: URINE AMPHETAMINES SCREEN NEGATIVE; URINE BARBITURATES SCREEN NEGATIVE; URINE BENZODIAZEPINES SCREEN NEGATIVE; URINE MARIJUANA (THC) SCREEN NEGATIVE; URINE METHADONE SCREEN NEGATIVE; URINE PHENCYCLIDINE SCREEN NEGATIVE
[2019-07-24 14:20] LABS: URINE COCAINE SCREEN UNCONFIRMED POSITIVE
[2019-07-24 14:41] LABS: T.VAGINALIS (WET MOUNT) NO TRICHOMONAS SEEN; WBCS (WET MOUNT) RARE WBCS SEEN; YEAST (WET MOUNT) NO YEAST SEEN
[2019-07-24 14:42] LABS: BACTERIA (WET MOUNT) 4+ BACTERIA SEEN; EPITHELIALS (WET MOUNT) 4+ EPITHELIALS SEEN
[2019-07-24 14:55] VITALS: BP 135/68
[2019-07-24 16:07] LABS: CHLAM PCR NOT DETECTED (NOT DETECT)
== END 2019-07-24 15:00 | disposition home or self-care (01) ==
LOC: ER 12:40
DX: L98.9 Disorder of the skin and subcutaneous tissue, unspecified (principal); F42.4 Excoriation (skin-picking) disorder; R23.4 Changes in skin texture; F11.10 Opioid abuse, uncomplicated; N76.0 Acute vaginitis; J45.909 Unspecified asthma, uncomplicated; E10.9 Type 1 diabetes mellitus without complications; F17.200 Nicotine dependence, unspecified, uncomplicated; B96.89 Other specified bacterial agents as the cause of diseases classified elsewhere; Z87.892 Personal history of anaphylaxis; Z88.8 Allergy status to other drugs, medicaments and biological substances; Z88.1 Allergy status to other antibiotic agents
CPT/HCPCS: 99283; 96372; 36415; 87040; 87210; 85025; 81025; 80053; 81001; 80307; 87491; 87591; J3490; J0696

== ENCOUNTER → 2019-09-15 | Outpatient (CLI) | payer OTHER ==
[2019-09-15 11:12] LABS: ABSOLUTE BASOPHILS # (AUTO) 0.1 10^3/uL (0.0-0.2); ABSOLUTE EOSINOPHILS # (AUTO) 0.2 10^3/uL (0.0-0.6); ABSOLUTE LYMPHOCYTES (AUTO) 2.5 10^3/uL (0.5-4.7); ABSOLUTE MONOCYTES (AUTO) 0.3 10^3/uL (0.1-1.4); ABSOLUTE NEUT (AUTO) 4.5 10^3/uL (1.7-8.2); BASOPHILS % (AUTO) 0.9 % (0-2); HEMATOCRIT 41.1 % (36.0-47.0); HEMOGLOBIN 14.2 g/dL (12.0-15.5); MEAN CORPUSCULAR HEMOGLOBIN 30.6 pg (27.0-33.4); MEAN CORPUSCULAR HGB CONC 34.5 g/dL (32.0-36.0); MEAN CORPUSCULAR VOLUME 89 fl (80-97); MONOCYTES % (AUTO) 4.2 % (3-13); PLATELET COUNT 401 10^3/uL (150-450); RED BLOOD COUNT 4.64 10^6/uL (3.72-5.28); RED CELL DISTRIBUTION WIDTH 14.3 % (11.5-14.0); SEGMENTED NEUTROPHILS % (AUTO) 58.9 % (42-78); TOTAL CELLS COUNTED % (AUTO) 100 %; WHITE BLOOD COUNT 7.6 10^3/uL (4.0-10.5)
[2019-09-15 11:28] LABS: ALKALINE PHOSPHATASE 121 U/L (38-126); ANION GAP 8 (5-19); ASPARTATE AMINO TRANSFERASE 35 U/L (14-36); BILIRUBIN,TOTAL 0.3 mg/dL (0.2-1.3); BLOOD UREA NITROGEN 4 mg/dL (7-20); CALCIUM 9.7 mg/dL (8.4-10.2); CARBON DIOXIDE 31 mmol/L (22-30); CHLORIDE 97 mmol/L (98-107); CHOLESTEROL 220.65 mg/dL (0-200); GLUCOSE 168 mg/dL (75-110); POTASSIUM 4.7 mmol/L (3.6-5.0); TOTAL PROTEIN 7.7 g/dL (6.3-8.2); TRIGLYCERIDES 233 mg/dL (<150)
[2019-09-15 11:38] LABS: DIRECT LDL 148 mg/dL (<100)
[2019-09-15 11:44] LABS: VLDL CHOLESTEROL 46.6 mg/dL (10-31)
== END ==
LOC: OD 10:14
DX: E11.8 Type 2 diabetes mellitus with unspecified complications (principal)
CPT/HCPCS: 36415; 80053; 80061; 83036; 85025

== ENCOUNTER 2019-11-19 09:52 | Emergency (ER) | payer SELFPAY ==
[2019-11-19 09:57] VITALS: BP 110/71
[2019-11-19] MEDS ORDERED: KETOROLAC TROMETHAMINE INJ/PF 30 MG/1 ML SDV IV ONE (10:12)
[2019-11-19] MEDS ORDERED: DIPHENHYDRAMINE HCL 50 MG/ML VIAL IV ONE (10:12)
[2019-11-19] MEDS ORDERED: PROCHLORPERAZINE EDISYLATE INJ 10 MG/2 ML VIAL IV ONE (10:12)
[2019-11-19] MEDS ORDERED: NORMAL SALINE 1000 ML 1,000 ML IV ONE (10:13)
--- NOTE | 2019-11-19 10:25 | ER Document Report ---
ED Headache - General Chief Complaint: Headache Stated Complaint: MIGRAINE Time Seen by Provider: 11/19/19 10:07 Primary Care Provider: [facility] [NO LOCAL MD] - Follow up as needed Mode of Arrival: Ambulatory Information source: Patient Notes: 34-year-old female presented to ED for complaint of migraine that is causing her nausea and vomiting. She states she does frequently have migraines and that the Compazine Toradol and Benadryl has helped multiple times in the past and she would really appreciate 1 at this time. She states she has no symptoms except for the migraine. She states she is also on Flagyl for a bacterial vaginosis and every time she takes the Flagyl she gets nauseated and she does not know if this is from the headache or from the Flagyl. She is alert oriented respirations regular nonlabored speaking in full sentences. TRAVEL OUTSIDE OF THE [place] IN LAST 30 DAYS: No - HPI Patient complains to provider of: "Migraine" Patient reports: Hx chronic headaches Onset: Yesterday Onset was: Gradual Timing: Still present Quality of pain: Achy, Throbbing Severity: Moderate Pain Level: 4 Associated symptoms: Nausea/vomiting Exacerbated by: Noise, Movement, Position Similar symptoms previously: Yes Recently seen / treated by doctor: No - Related Data Allergies/Adverse Reactions: infliximab [From Remicade] Allergy (Severe, Verified 11/19/19 10:08) Anaphylaxis clindamycin [Clindamycin] Allergy (Verified 11/19/19 10:08) sulfamethoxazole [From Bactrim] Allergy (Verified 11/19/19 10:08) trimethoprim [From Bactrim] Allergy (Verified 11/19/19 10:08) codeine [Codeine] Adverse Reaction (Mild, Verified 11/19/19 10:08) NSAIDS (Non-Steroidal Anti-Inflamma Adverse Reaction (Verified 11/19/19 10:08) Past Medical History - General Information source: Patient - Social History Smoking Status: Current Every Day Smoker Cigarette use (# per day): Yes - Pack per day Smoking Education Provided: Yes - 4 minutes Drug Abuse: Other - Is on Suboxone Family History: COPD, DM, Malignancy - Past Medical History Cardiac Medical History: Reports: None Pulmonary Medical History: Reports: Hx Asthma EENT Medical History: Reports: None Neurological Medical History: Reports: Hx Migraine, Hx Seizures - BLOOD SUGAR GOT TOO LOW Endocrine Medical History: Reports: Hx Diabetes Mellitus Type 1 Renal/ Medical History: Reports: None Malignancy Medical History: Reports: None GI Medical History: Reports: Hx Gastroesophageal Reflux Disease, Hx Ulcerative Colitis Musculoskeletal Medical History: Reports Hx Fibromyalgia, Reports Hx Musculoskeletal Trauma Skin Medical History: Reports None Psychiatric Medical History: Reports: Hx Anxiety, Hx Depression Traumatic Medical History: Reports: Hx Fractures Infectious Medical History: Reports: None Past Surgical History: Reports: Hx Section - x1, Hx Tubal Ligation - Immunizations Hx Diphtheria, Pertussis, Tetanus Vaccination: Yes Review of Systems - Review of Systems Constitutional: No symptoms reported EENT: No symptoms reported Cardiovascular: No symptoms reported Respiratory: No symptoms reported Gastrointestinal: Nausea, Vomiting Genitourinary: No symptoms reported Female Genitourinary: No symptoms reported Musculoskeletal: No symptoms reported Skin: No symptoms reported Hematologic/Lymphatic: No symptoms reported Neurological/Psychological: Headaches -: Yes All other systems reviewed and negative Physical Exam - Vital signs Vitals: Temp Pulse Resp BP Pulse Ox 97.4 F 86 20 110/71 98 11/19/19 09:56 11/19/19 09:56 11/19/19 09:56 11/19/19 09:56 11/19/19 09:56 Interpretation: Normal - General General appearance: Appears well, Alert - HEENT Head: Normocephalic, Atraumatic Eyes: Normal Pupils: PERRL Ears: Normal External canal: Normal Tympanic membrane: Normal Sinus: Normal Nasal: Normal Mouth/Lips: Normal Mucous membranes: Normal Pharynx: Normal Neck: Normal - Respiratory Respiratory status: No respiratory distress Chest status: Nontender Breath sounds: Normal Chest palpation: Normal - Cardiovascular Rhythm: Regular Heart sounds: Normal auscultation Murmur: No - Abdominal Inspection: Normal Distension: No distension Bowel sounds: Normal Tenderness: Nontender Organomegaly: No organomegaly - Back Back: Normal, Nontender - Extremities General upper extremity: Normal inspection, Nontender, Normal color, Normal ROM, Normal temperature General lower extremity: Normal inspection, Nontender, Normal color, Normal ROM, Normal temperature, Normal weight bearing. 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 She states this is helped her headache in the past. Will reassess the headache after the medication. Patient has requested a prescription for nausea medicine for home for her Flagyl until it is completed. - Vital Signs Vital signs: Temp Pulse Resp BP Pulse Ox 97.4 F 86 20 110/71 98 11/19/19 10:08 11/19/19 09:56 11/19/19 09:56 11/19/19 09:56 11/19/19 09:56 - Laboratory Laboratory results interpreted by me: 11/19/19 10:32 POC Glucose 170 H Discharge - Discharge Clinical Impression: Headache Qualifiers: Headache type: unspecified Headache chronicity pattern: chronic headache Intractability: not intractable Qualified Code(s): R51 - Headache Nausea and vomiting Qualifiers: Vomiting type: unspecified Vomiting Intractability: non-intractable Qualified Code(s): R11.2 - Nausea with vomiting, unspecified Condition: Stable Disposition: HOME, SELF-CARE Additional Instructions: HEADACHE: The physician does not feel that the headache you are experiencing has a serious underlying cause. Most headaches are due to emotional stress, with resultant muscle tension (tension headache). Occasionally, headaches are secondary to changes in the blood vessels of the scalp (vascular headache and migraine headache). Sometimes, a headache is the first symptom of another developing illness, such as a viral infection. You have no evidence of stroke, bleeding, meningitis, or other serious cause of your headache. The treatment of headaches varies with the severity and cause of the pain. Not all headaches need pain shots. In fact, there is evidence that using narco tics for headaches may make them worse in the long run. The physician will determine the therapy that's in your best interest. If you develop a fever, if the headache is different from any you've previously experienced, or if the headache progressively worsens, then call your physician at once or go to the emergency room. USE OF DIPHENHYDRAMINE: Diphenhydramine (Benadryl) is an antihistamine and has been recommended to help treat your headache and to prevent side effects of other medications used to treat headaches. The medication can be repeated four times daily. Age Elixir (12.5 mg/tsp) 25 mg pill adult 1-2 tabs Antihistamines may cause drowsiness, especially with the first dose. Do not operate machinery or drive while under the effects of the medication. Do not combine the medication with alcohol, or with any other medication without talking to your doctor. ANTINAUSEA MEDICATION: You have been given a medication to suppress nausea and vomiting. This type of medication can be given as a shot, pill, or suppository. It will usually last for many hours. Pills and shots usually last six to eight hours, suppositories last about 12 hours. For the typical illness, only one or two doses of the medication may be necessary. Mild lightheadedness may occur. This type of medicine can cause mason wsiness. Do not drive or operate dangerous machinery while under its influence. Do not mix with alcohol. See your doctor at once if you have muscle spasms or tightness, or uncontrollable motions (particularly of the neck, mouth, or jaw). Persistent vomiting or severe lightheadedness should also be evaluated by the physician. INTRAVENOUS COMPAZINE FOR HEADACHE: You have received therapy for headaches, using intravenous Compazine. This treatment is dramatically successful in relieving the headache in about 50 percent of cases. When it works, it provides a rapid method of eliminating the headache without resorting to narcotics (and the problems associated with them). Most patients still feel fully alert after the Compazine, but others may be slightly drowsy. It's best not to drive or work with machinery for six to eight hours. Do not take alcohol or other medication unless you discuss it with the doctor. If you develop tightness and spasms in your muscles, especially the neck and tongue, you should return. This is a side effect which can be treated. TORADOL INJECTION: You have been given an injection of ketorolac tromethamine (Toradol). This is an excellent, safe drug for pain control. It also has potent antiinflammatory action. You should have significant pain relief within about one hour. Toradol is not addicting and is non-sedating. It does not interfere with driving or work. Call or return if you develop itching, hives, shortness of breath, or rash. FOLLOW-UP CARE: If you have been referred to a physician for follow-up care, call the physicians office for an appointment as you were instructed or within the next two days. If you experience worsening or a significant change in your symptoms, notify the physician immediately or return to the Emergency Department at any time for re-evaluation. Prescriptions: Prochlorperazine Maleate [Compazine 10 mg Tablet] 10 mg PO Q6HP PRN #10 tablet PRN Reason: Ondansetron [Zofran Odt 4 mg Tablet] 1 tab PO Q6H #15 tab.rapdis [facility]: [facility] [NO [facility]AL MD] - Follow up as needed
[2019-11-19] MEDS ORDERED: KETOROLAC TROMETHAMINE INJ/PF 30 MG/1 ML SDV IM ONE (10:34)
[2019-11-19] MEDS ORDERED: DIPHENHYDRAMINE HCL 50 MG/ML VIAL IM ONE (10:34)
[2019-11-19] MEDS ORDERED: PROCHLORPERAZINE EDISYLATE INJ 10 MG/2 ML VIAL IM ONE (10:34)
== END 2019-11-19 11:05 | disposition home or self-care (01) ==
LOC: ER 09:52
DX: R51 Headache (principal); R11.2 Nausea with vomiting, unspecified; F17.210 Nicotine dependence, cigarettes, uncomplicated; E10.9 Type 1 diabetes mellitus without complications; Z88.3 Allergy status to other anti-infective agents; Z88.6 Allergy status to analgesic agent
CPT/HCPCS: 99406; 99283; 96372; 82962; J1200; J1885; J0780

== ENCOUNTER 2020-04-09 22:37 | Emergency (ER) | payer SELFPAY ==
[2020-04-09] MEDS ORDERED: LIDOCAINE 1% INJ-PF (10 MG/ML) 30 ML SDV ID ONE (22:58)
[2020-04-09] MEDS ORDERED: LIDOCAINE 1% INJ-PF (10 MG/ML) 30 ML SDV INJ ONE (23:02)
--- NOTE | 2020-04-09 23:08 | ER Document Report ---
ED General - General Chief Complaint: Abscess Stated Complaint: ABSCESS ON ARM Time Seen by Provider: 04/09/20 22:54 Mode of Arrival: Ambulatory Information source: Patient Notes: 35-year-old female coming in today with abscess to the surface of her left upper arm. History of IV drug abuse in the past. States has not used this area for injecting drugs in about a month. States subjective fevers. Some chills. No nausea vomiting or diarrhea. No history of diabetes or immune compromise. TRAVEL OUTSIDE OF THE [place] IN LAST 30 DAYS: No - Related Data Allergies/Adverse Reactions: infliximab [From Remicade] Allergy (Severe, Verified 04/09/20 22:58) Anaphylaxis clindamycin [Clindamycin] Allergy (Verified 04/09/20 22:58) sulfamethoxazole [From Bactrim] Allergy (Verified 04/09/20 22:58) trimethoprim [From Bactrim] Allergy (Verified 04/09/20 22:58) codeine [Codeine] Adverse Reaction (Mild, Verified 04/09/20 22:58) NSAIDS (Non-Steroidal Anti-Inflamma Adverse Reaction (Verified 04/09/20 22:58) Home Medications: lantus. humalog. subutex Past Medical History - General Information source: Patient - Social History Smoking Status: Current Every Day Smoker Frequency of alcohol use: None Drug Abuse: None Family History: COPD, DM, Malignancy Pulmonary Medical History: Reports: Hx Asthma Neurological Medical History: Reports: Hx Migraine, Hx Seizures - BLOOD SUGAR GOT TOO LOW Endocrine Medical History: Reports: Hx Diabetes Mellitus Type 1 GI Medical History: Reports: Hx Gastroesophageal Reflux Disease, Hx Ulcerative Colitis Musculoskeletal Medical History: Reports Hx Fibromyalgia, Reports Hx Musculoskeletal Trauma Psychiatric Medical History: Reports: Hx Anxiety, Hx Depression Traumatic Medical History: Reports: Hx Fractures Past Surgical History: Reports: Hx Section - x1, Hx Tubal Ligation - Immunizations Hx Diphtheria, Pertussis, Tetanus Vaccination: Yes Review of Systems - Review of Systems Notes: Constitutional: Subjective fevers and chills EENT: No eye redness. No eye pain. No ear pain. No sore throat. Cardiovascular: No chest pain. No palpitations. Respiratory: No cough. No shortness of breath. No respiratory distress. Gastrointestinal: No abdominal pain. No nausea, vomiting, or diarrhea. Genitourinary: Atraumatic. No lesions. No pain. No discharge. Musculoskeletal: Atraumatic. No swelling. No deformities. Skin: Positive abscess left upper arm Lymphatic: No swollen lymph nodes. Neurologic: No headache. No syncope. Psychiatric: No suicidal or homicidal ideation. Physical Exam - Vital signs Vitals: Temp Pulse Resp BP Pulse Ox 98.2 F 74 20 124/73 95 04/09/20 22:49 04/09/20 22:49 04/09/20 22:49 04/09/20 22:49 04/09/20 22:49 - Notes Notes: General: Well-developed, well-nourished. In no acute distress. Non-toxic appearing. Cardiac: Well-perfused. Regular rate and rhythm. No murmurs, rubs, or gallops. Pulmonary: No respiratory distress. No cyanosis. Bilateral lung fiels are clear to auscultation. Abdominal: Non-distended. Non-rigid. Bowels sounds are present in all four quadrants. No guarding or rebound. HEENT: Head is atraumatic. Conjunctivae not reddened. No tearing. PERRL. EOMI. Orbits atraumatic. No periorbital swelling or erythema. Oropharynx is without erythema, swelling, or exudates. Neck: Supple. No adenopathy. No meningismus. Dermatologic: Fluctuant abscess distal aspect of left upper arm which is erythematous and tender. Lesion is the diameter of a quarter. Chest: Atraumatic. No chest wall tenderness to palpation. Musculoskeletal: Moves all extremities well. No range of motion deficits. no muscular or joint tenderness. No paraspinal muscle tenderness. no midline spinal tenderness or step-off. Genitourinary: Examination deferred Neurologic: No gross neurologic deficits. Psychiatric: Normal mood. Course - Vital Signs Vital signs: Temp Pulse Resp BP Pulse Ox 98.2 F 74 20 124/73 95 04/09/20 22:49 04/09/20 22:49 04/09/20 22:49 04/09/20 22:49 04/09/20 22:49 Procedures - Incision and Drainage Left Upper Arm Time completed: 23:25 Type: Single Anesthetic type: 1% Lidocaine mL's of anesthetic: 4 Blade size: 11 I&D procedure: Betadine prep applied, Sterile dressing applied Incision Method: Incision made by scalpel - 11 Amount/type of drainage: Moderate amount of bloody and purulent drainage Notes: 04/09/20 23:26 Wound culture obtained. Will send patient home on doxycycline Discharge - Discharge Clinical Impression: Abscess of left upper extremity Condition: Good Disposition: HOME, SELF-CARE Instructions: Abscess ([facility]), MRSA Cellulitis ([facility]) Additional Instructions: Hot compresses daily. Clean with soap and water. Systolically twice a day. Please follow-up with your doctor or return here for wound recheck 2 days Prescriptions: Doxycycline Hyclate 100 mg PO BID #20 tablet.
[2020-04-09] MEDS ORDERED: DOXYCYCLINE HYCLATE 100 MG TABLET PO ONE (23:31)
[2020-04-09 23:54] VITALS: BP 111/71
== END 2020-04-09 23:47 | disposition home or self-care (01) ==
LOC: ER 22:37
DX: L02.414 Cutaneous abscess of left upper limb (principal)
CPT/HCPCS: 99283; 87070; 87205; 87075; 10060; J3490; 87077

== ENCOUNTER 2020-05-19 11:36 | Inpatient (IN) | payer SELFPAY ==
[2020-05-19] MEDS ORDERED: ACETAMINOPHEN 325 MG TABLET PO ONE (11:57)
[2020-05-19 12:09] LABS: VENOUS BLOOD BASE EXCESS -1.4 mmol/L; VENOUS BLOOD HCO3 24.3 mmol/L (20-32); VENOUS BLOOD PCO2 44.6 mmHg (35-63); VENOUS BLOOD PH 7.36 (7.30-7.42)
[2020-05-19 12:16] LABS: INTERNATIONAL RATION (INR) 1.63; PROTHROMBIN TIME 19.5 SEC (11.4-15.4)
[2020-05-19 12:27] LABS: HEMATOCRIT 39.6 % (36.0-47.0); HEMOGLOBIN 13.6 g/dL (12.0-15.5); MEAN CORPUSCULAR HEMOGLOBIN 29.7 pg (27.0-33.4); MEAN CORPUSCULAR HGB CONC 34.3 g/dL (32.0-36.0); MEAN CORPUSCULAR VOLUME 87 fl (80-97); PLATELET COUNT 279 10^3/uL (150-450); RED BLOOD COUNT 4.57 10^6/uL (3.72-5.28); RED CELL DISTRIBUTION WIDTH 13.4 % (11.5-14.0)
[2020-05-19 12:30] LABS: ALBUMIN 4.2 g/dL (3.5-5.0); ALKALINE PHOSPHATASE 166 U/L (38-126); ASPARTATE AMINO TRANSFERASE 14 U/L (14-36); BILIRUBIN,DIRECT 0.3 mg/dL (0.0-0.4); BILIRUBIN,TOTAL 0.7 mg/dL (0.2-1.3); BLOOD UREA NITROGEN 23 mg/dL (7-20); CALCIUM 9.1 mg/dL (8.4-10.2); POTASSIUM 3.8 mmol/L (3.6-5.0); TOTAL PROTEIN 7.6 g/dL (6.3-8.2)
[2020-05-19 12:34] LABS: CARBON DIOXIDE 20 mmol/L (22-30); CHLORIDE 91 mmol/L (98-107)
[2020-05-19 12:38] LABS: ALCOHOL < 10 mg/dL (NONE DETECTED)
[2020-05-19 12:39] LABS: ANION GAP 21 (5-19)
[2020-05-19 12:40] LABS: GLUCOSE 399 mg/dL (75-110)
[2020-05-19 12:48] LABS: ABSOLUTE LYMPHOCYTES# (MANUAL) 1.2 10^3/uL (0.5-4.7); ABSOLUTE MONOCYTES # (MANUAL) 0.9 10^3/uL (0.1-1.4); BAND NEUTROPHILS % (MANUAL) 4 % (3-5); BASOPHILS % (MANUAL) 0 % (0-2); EOSINOPHILS % (MANUAL) 0 % (0-6); LYMPHOCYTES % (MANUAL) 5 % (13-45); MONOCYTES % (MANUAL) 4 % (3-13); PLATELET CLUMPS PRESENT; PLATELET COMMENT ADEQUATE; RBC MORPHOLOGY COMMENT NORMO-CYTIC/CHROMIC; SEGMENTED NEUTROPHILS % (MAN) 87 % (42-78); TOTAL CELLS COUNTED 100; TOXIC VACUOLATION PRESENT
[2020-05-19 13:02] LABS: APPEARANCE,URINE CLEAR; BILIRUBIN,URINE NEGATIVE (NEGATIVE); COLOR,URINE YELLOW; GLUCOSE, URINE >=500 mg/dL (NEGATIVE); KETONES,URINE 80 mg/dL (NEGATIVE); LEUKOCYTE ESTERASE,URINE NEGATIVE (NEGATIVE); NITRITE,URINE NEGATIVE (NEGATIVE); PROTEIN,URINE 100 mg/dL (NEGATIVE); URINE SPECIFIC GRAVITY 1.023; UROBILINOGEN,URINE NEGATIVE mg/dL (<2.0)
--- NOTE | 2020-05-19 13:06 | RADIOLOGY REPORT (SQ) ---
EXAM DESCRIPTION: CHEST SINGLE VIEW IMAGES COMPLETED DATE/TIME: 05/19/2020 12:46 pm REASON FOR STUDY: fever COMPARISON: None. EXAM PARAMETERS: NUMBER OF VIEWS: One view. TECHNIQUE: Single frontal radiographic view of the chest acquired. RADIATION DOSE: NA LIMITATIONS: None. FINDINGS: LUNGS AND PLEURA: Subtle ovoid ground-glass opacity over the right mid lung. No dense con solidation. No pleural effusion or pneumothorax. MEDIASTINUM AND HILAR STRUCTURES: No masses. Contour normal. HEART AND VASCULAR STRUCTURES: Heart normal in size. Normal vasculature. BONES: No acute findings. HARDWARE: None in the chest. OTHER: No other significant finding. IMPRESSION: Subtle ovoid ground-glass opacity of the right mid lung possibly infectious/ inflammator y. Of note, radiographs have limits sensitivity for ground-glass nodules. No dense consolidation. No Significant effusion. TECHNICAL DOCUMENTATION: JOB ID: [id number] 2010 [employer]- All Rights Reserved Reading location - IP/workstation name: [email or web address]
[2020-05-19 13:19] LABS: URINE AMPHETAMINES SCREEN NEGATIVE; URINE BARBITURATES SCREEN NEGATIVE; URINE BENZODIAZEPINES SCREEN NEGATIVE; URINE COCAINE SCREEN NEGATIVE; URINE MARIJUANA (THC) SCREEN NEGATIVE; URINE METHADONE SCREEN NEGATIVE; URINE PHENCYCLIDINE SCREEN NEGATIVE
[2020-05-19] MEDS ORDERED: CEFEPIME 2 GM/D5W RTU 2 GM/50 ML RTUPB IV ONE (14:23)
[2020-05-19] MEDS ORDERED: VANCOMYCIN HCL INJ 1000 MG VIAL IV ONE (14:23)
--- NOTE | 2020-05-19 14:52 | RADIOLOGY REPORT (SQ) ---
EXAM DESCRIPTION: CT HEAD WITHOUT IMAGES COMPLETED DATE/TIME: 05/19/2020 2:39 pm REASON FOR STUDY: ams/fever COMPARISON: None. TECHNIQUE: Axial images acquired through the brain without intravenous contrast. Images reviewed wi th bone, brain and subdural windows. Additional sagittal and coronal reconstructions were generated. Images stored on PACS. All CT scanners at this facility use dose modulation, iterative reconstruction, and/or weight based d osing when appropriate to reduce radiation dose to as low as reasonably achievable (ALARA). [facility]: Dose Right [facility]: CareDose [facility]: Dose Right [facility]: Teradose 4D [facility]: Bio[employer]Sys RADIATION DOSE: CT Rad equipment meets quality standard of care and radiation dose reduction techniq ues were employed. CTDIvol: 53.2 mGy. DLP: 1017 mGy-cm. mGy. LIMITATIONS: None. FINDINGS: VENTRICLES: Normal size and contour. CEREBRUM: No masses. No hemorrhage. No midline shift. No evidence for acute infarction. Normal gra y/white matter differentiation. No areas of low density in the white matter. CEREBELLUM: No masses. No hemorrhage. No alteration of density. No evidence for acute infarction. EXTRAAXIAL SPACES: No fluid collections. No masses. ORBITS AND GLOBE: No intra- or extraconal masses. Normal contour of globe without masses. CALVARIUM: No fracture. PARANASAL SINUSES: No fluid or mucosal thickening. SOFT TISSUES: No mass or hematoma. OTHER: No other significant finding. IMPRESSION: NO ACUTE INTRACRANIAL IMAGING FINDINGS. EVIDENCE OF ACUTE STROKE: NO. COMMENT: Quality ID # [id number]: Final reports with documentation of one or more dose reduction techniques (e.g., Automated exposure control, adjustment of the mA and/or kV according to patient size, use of iterative reconstruction technique) TECHNICAL DOCUMENTATION: JOB ID: [id number] 2010 [employer]- All Rights Reserved Reading location - IP/workstation name: [email or web address]
--- NOTE | 2020-05-19 14:56 | RADIOLOGY REPORT (SQ) ---
EXAM DESCRIPTION: CT ABD/PELVIS NO ORAL OR IV IMAGES COMPLETED DATE/TIME: 05/19/2020 2:39 pm REASON FOR STUDY: fever/pain COMPARISON: None. TECHNIQUE: CT scan of the abdomen and pelvis performed without intravenous or oral contrast. Images reviewed with lung, soft tissue, and bone windows. Reconstructed coronal and sagittal MPR images revi ewed. All images stored on PACS. All CT scanners at this facility use dose modulation, iterative reconstruction, and/or weight based d osing when appropriate to reduce radiation dose to as low as reasonably achievable (ALARA). [facility]: Dose Right [facility]: CareDose [facility]: Dose Right [facility]: Teradose 4D [facility]: Smart [employer] RADIATION DOSE: CT Rad equipment meets quality standard of care and radiation dose reduction techniq ues were employed. CTDIvol: 8.4 mGy. DLP: 497 mGy-cm.mGy. LIMITATIONS: None. FINDINGS: LOWER CHEST: No significant findings. No nodules or infiltrates. NON-CONTRASTED LIVER, SPLEEN, ADRENALS: Evaluation limited by lack of IV contrast. No identified sign ificant masses. PANCREAS: No masses. No peripancreatic inflammatory changes. GALLBLADDER: No identified stones by CT criteria. No inflammatory changes to suggest cholecystitis. RIGHT KIDNEY AND URETER: Asymmetrically enlarged with decreased attenuation compared to the contralat eral kidney. No suspicious masses. Assessment limited by lack of IV contrast. No significant calci fications. No hydronephrosis or hydroureter. LEFT KIDNEY AND URETER: No suspicious masses. Assessment limited by lack of IV contrast. No signifi cant calcifications. No hydronephrosis or hydroureter. AORTA AND RETROPERITONEUM: No aneurysm. No retroperitoneal masses or adenopathy. BOWEL AND PERITONEAL CAVITY: No evidence of intestinal obstruction. No focal bowel wall thickening. Moderate formed stool throughout the colon. APPENDIX: Normal. Retrocecal in location. PELVIS, BLADDER, AND ABDOMINAL WALL:No abnormal masses. No free fluid. Bladder normal. BONES: No significant findings. OTHER: No other significant finding. IMPRESSION: 1. Asymmetrically enlarged, likely edematous, right kidney suggestive of pyelonephritis . Recommend correlation with UA. No hydronephrosis. 2. No evidence of acute intra-abdominal/pelvic process. Normal appendix. 3. Moderate formed stool throughout the colon. COMMENT: Quality ID # [id number]: Final reports with documentation of one or more dose reduction techniques (e.g., Automated exposure control, adjustment of the mA and/or kV according to patient size, use of iterative reconstruction technique) TECHNICAL DOCUMENTATION: JOB ID: [id number] 2010 [email or web address]- All Rights Reserved Reading location - IP/workstation name: [email or web address]
[2020-05-19] MEDS ORDERED: NORMAL SALINE 1000 ML 1,000 ML IV ONE ×2 (15:15)
[2020-05-19] MEDS ORDERED: NORMAL SALINE 100 ML with INSULIN REGULAR, HUMAN 100 UNIT IV PRN ×2 (16:23)
--- NOTE | 2020-05-19 16:29 | ER Document Report ---
ED General - General Chief Complaint: Altered Mental Status Stated Complaint: ALTERED MENTAL STATUS Time Seen by Provider: 05/19/20 11:51 Mode of Arrival: Medic Information source: Patient, Emergency Med Personnel TRAVEL OUTSIDE OF THE [place] IN LAST 30 DAYS: No - HPI Notes: Patient is brought in secondary to having altered mental status at home. Patient was brought in by ambulance. Patient's parents called the ambulance secondary to not having altered mental status. Patient is supposedly in Suboxone clinic secondary to having a history of IV drug abuse. Parents state that the patient has not been compliant with her medicines for the last several days however exactly what that statement means is unclear. Patient has not had any known vomiting or diarrhea. No known cough. No known Covid exposures. Patient is confused and will not answer any questions intelligently to contribute to history. - Related Data Allergies/Adverse Reactions: infliximab [From Remicade] Allergy (Severe, Verified 05/19/20 12:43) Anaphylaxis clindamycin [Clindamycin] Allergy (Verified 05/19/20 12:43) sulfamethoxazole [From Bactrim] Allergy (Verified 05/19/20 12:43) trimethoprim [From Bactrim] Allergy (Verified 05/19/20 12:43) codeine [Codeine] Adverse Reaction (Mild, Verified 05/19/20 12:43) NSAIDS (Non-Steroidal Anti-Inflamma Adverse Reaction (Verified 05/19/20 12:43) Home Medications: Buprenohine. Paroxetine. Gabapentin Past Medical History - General Information source: Emergency Med Personnel - Social History Smoking Status: Current Every Day Smoker Frequency of alcohol use: None - None known Drug Abuse: Heroin Family History: COPD, DM, Malignancy Pulmonary Medical History: Reports: Hx Asthma Neurological Medical History: Reports: Hx Migraine, Hx Seizures - BLOOD SUGAR GOT TOO LOW Endocrine Medical History: Reports: Hx Diabetes Mellitus Type 1 GI Medical History: Reports: Hx Gastroesophageal Reflux Disease, Hx Ulcerative Colitis Musculoskeletal Medical History: Reports Hx Fibromyalgia, Reports Hx Musculoskeletal Trauma Psychiatric Medical History: Reports: Hx Anxiety, Hx Depression Traumatic Medical History: Reports: Hx Fractures Past Surgical History: Reports: Hx Section - x1, Hx Tubal Ligation - Immunizations Hx Diphtheria, Pertussis, Tetanus Vaccination: Yes Review of Systems - Review of Systems -: Yes ROS unobtainable due to patient's medical condition - Patient is altered and cannot give review of symptoms Physical Exam - Vital signs Vitals: Resp Pulse Ox 19 95 05/19/20 11:59 05/19/20 11:59 Interpretation: Febrile - General General appearance: Alert, Other - Confused - HEENT Head: Normocephalic, Atraumatic Eyes: Normal Pupils: PERRL - Respiratory Respiratory status: No respiratory distress Chest status: Nontender Breath sounds: Normal Chest palpation: Normal - Cardiovascular Rhythm: Tachycardia Heart sounds: Normal auscultation Murmur: No - Abdominal Inspection: Normal Distension: No distension Bowel sounds: Normal Tenderness: Tender - Patient appears to grimace and have voluntary guarding diffusely to palpation of the abdomen Organomegaly: No organomegaly - Back Back: Normal, Nontender - Extremities General upper extremity: Normal inspection, Nontender, Normal color, Normal ROM, Normal temperature General lower extremity: Normal inspection, Nontender, Normal color, Normal ROM, Normal temperature, Normal weight bearing. No: Ja's sign - Neurological Cognition: Confused Williams Coma Scale Eye Opening: Spontaneous Williams Coma Scale Verbal: Confused Williams Coma Scale Motor: Localizes to Pain Williams Coma Scale Total: 13 - Psychological Associated symptoms: Agitated, Psychomotor agitation - Skin Skin Temperature: Warm Skin Moisture: Dry Skin Color: Normal Course - Re-evaluation Re-evalutation: 05/19/20 16:33 Patient presents with altered mental status and fever. She also has a significantly elevated glucose. She has been treated with fluids insulin and antibiotics. Exact source of the fever at this time is unclear. She has some subtle opacities on x-ray. She also has some findings on CT suggesting possible pyelonephritis although she has a normal urine. She has no obvious wounds on her body or evidence of any type of cellulitis or abscesses. She does not appear to have any type of meningeal signs that she is very agitated and moving about the bed and has no significant apprehension to movement such as flexion and extension of her neck - Vital Signs Vital signs: Temp Pulse Resp BP Pulse Ox 100.5 F H 15 107/64 95 05/19/20 13:56 05/19/20 15:01 05/19/20 15:00 05/19/20 15:01 - Laboratory Result Diagrams: 05/19/20 11:56 05/19/20 11:56 Laboratory results interpreted by me: 05/19/20 05/19/20 05/19/20 11:44 11:56 11:56 WBC 23.0 H Seg Neuts % (Manual) 87 H Lymphocytes % (Manual) 5 L Abs Neuts (Manual) 20.9 H PT Sodium 131.5 L Chloride 91 L Carbon Dioxide 20 L Anion Gap 21 H BUN 23 H Glucose 399 H POC Glucose 394 H Alkaline Phosphatase 166 H Urine Protein Urine Glucose (UA) Urine Ketones Urine Blood 05/19/20 05/19/20 11:56 12:05 WBC Seg Neuts % (Manual) Lymphocytes % (Manual) Abs Neuts (Manual) PT 19.5 H Sodium Chloride Carbon Dioxide Anion Gap BUN Glucose POC Glucose Alkaline Phosphatase Urine Protein 100 H Urine Glucose (UA) >=500 H Urine Ketones 80 H Urine Blood MODERATE H - Diagnostic Test Radiology reviewed: Image reviewed, Reports reviewed - EKG Interpretation by Me EKG shows normal: Sinus rhythm Rate: Tachycardia - 102 Rhythm: NSR [place]/QRS: Left axis deviation. No: Right axis deviation Critical Care Note - Critical Care Note Total time excluding time spent on procedures (mins): 55 Comments: Approximately 55 minutes of critical care time were spent on this patient. This included multiple reassessments. It included discussions with consultants. It included reviewing old records. It included reviewing imaging and laboratory values. Discharge - Discharge Clinical Impression: Fever Qualifiers: Fever type: unspecified Qualified Code(s): R50.9 - Fever, unspecified Diabetic keto-acidosis Qualifiers: Diabetes mellitus type: type 1 Diabetes mellitus complication detail: without coma Qualified Code(s): E10.10 - Type 1 diabetes mellitus with ketoacidosis without coma Condition: Critical Disposition: ADMITTED INPATIENT Admitting Provider: Ethan (Hospitalist) Unit Admitted: [facility]
[2020-05-19] MEDS ORDERED: LORAZEPAM INJ 2 MG/1 ML VIAL IV ONE (16:39)
[2020-05-19] MEDS ORDERED: INSULIN REG, HUMAN 100 UNIT/ML 3 ML VIAL (PYX) ONE (18:14)
[2020-05-19] MEDS ORDERED: DEXTROSE 40% GEL 15 GM TUBE PO PRN ×2 (18:20)
[2020-05-19] MEDS ORDERED: GLUCAGON,HUMAN RECOMB 1 MG INJ SUBCUT PRN (18:20)
[2020-05-19] MEDS ORDERED: RINGERS SOLUTION,LACTATED 1,000 ML IV PRN ×2 (18:20→18:39)
[2020-05-19] MEDS ORDERED: DEXTROSE 50%-WATER 25 GM/50 ML DISP.SYRIN IV PRN ×2 (18:20)
[2020-05-19] MEDS ORDERED: ONDANSETRON 4 MG TAB.RAPDIS PO PRN (18:29)
[2020-05-19] MEDS ORDERED: ACETAMINOPHEN 325 MG TABLET PO PRN (18:29)
[2020-05-19] MEDS: LORAZEPAM INJ 2 MG/1 ML VIAL IV PRN ×2 (18:35→21:23)
--- NOTE | 2020-05-19 18:50 | PDOC H&P ---
History of Present Illness Admission Date/PCP: 05/19/20 17:19 History of Present Illness: ИВАН MONTELONGO is a 35 year old female with past medical history significant for IV drug abuse, diabetes, ulcerative colitis, chronic pain who presents to the ED via EMS after her parents called 911 due to the patient having confusion and combativeness. Patient was brought to ED and started on IV fluids. CT of abdomen/pelvis showed enlarged edematous right kidney possible pyelonephritis although UA was not consistent with infection. No hydronephrosis. UA did show massive amount of glucose as well as ketones. Patient has multiple small wounds on her upper extremities consistent with possible injection sites and small areas of potential cellulitis. Reportedly, patient has been off IV drugs which is not consistent with physical exam findings. History cannot be obtained by the patient as she is confused and I have tried many times to contact her family via the phone numbers in the chart and they do not answer the phone or return my calls. History obtained solely from the chart and ED personnel. Head CT showed no acute findings. Chest x-ray showed a subtle ovoid groundglass opacity in the right middle lung infectious or inflammatory. CT chest was not obtained in ED and I have ordered a CT chest to evaluate this possible lung infarction or lung abscess which could have been implanted from IV drug abuse. IV fluids started. Patient became confused and combative and pulled out her IV and she was put in restraints. She is oriented only to herself on admission. Labs are remarkable for a gap acidosis and a blood sugar of 417. She was not yet started on insulin drip. I requested that the ED start this promptly during my initial discussion with attending physician. Patient's troponin is mildly elevated and this is trending. Suspect infected endocarditis as a source of patient's DKA. Echocardiogram ordered. Vancomycin and cefepime started. Blood cultures pe nding. Past Medical History Pulmonary Medical History: Reports: Asthma Neurological Medical History: Reports: Migraine, Seizures - BLOOD SUGAR GOT TOO LOW Endocrine Medical History: Reports: Diabetes Mellitus Type 1 GI Medical History: Reports: Gastroesophageal Reflux Disease, Ulcerative Colitis Musculoskeltal Medical History: Reports: Fibromyalgia Psychiatric Medical History: Reports: Depression Hematology: Reports: Anemia Past Surgical History Past Surgical History: Reports: Section - x1, Tubal Ligation Social History Information Source: Emergency Med Personnel, [facility] Records Lives with: Family Smoking Status: Current Every Day Smoker Frequency of Alcohol Use: Occasional Hx Recreational Drug Use: Yes Drugs: Heroin Hx Prescription Drug Abuse: Yes - Advance Directive Resuscitation Status: Full Code Family History Family History: None, COPD, DM, Malignancy Parental Family History Reviewed: Yes Children Family History Reviewed: Yes Sibling(s) Family History Reviewed.: Yes Medication/Allergy Home Medications: Buprenorphine HCl 8 mg SL BID 05/19/20 Gabapentin [Neurontin 300 mg Capsule] 300 mg PO Q6 05/19/20 Paroxetine HCl [Paxil 20 mg Tablet] 20 mg PO DAILY 05/19/20 Allergies/Adverse Reactions: infliximab [From Remicade] Allergy (Severe, Verified 05/19/20 12:43) Anaphylaxis clindamycin [Clindamycin] Allergy (Verified 05/19/20 12:43) sulfamethoxazole [From Bactrim] Allergy (Verified 05/19/20 12:43) trimethoprim [From Bactrim] Allergy (Verified 05/19/20 12:43) codeine [Codeine] Adverse Reaction (Mild, Verified 05/19/20 12:43) NSAIDS (Non-Steroidal Anti-Inflamma Adverse Reaction (Verified 05/19/20 12:43) Review of Systems ROS unobtainable: Due to mental status Physical Exam Vital Signs: Temp Pulse Resp BP Pulse Ox 100.5 F H 17 103/63 97 05/19/20 13:56 05/19/20 17:01 05/19/20 17:00 05/19/20 17:01 Intake & Output 05/18/20 05/19/20 05/20/20 06:59 06:59 06:59 Intake Total 50 Balance 50 Weight 66.451 kg Exam: General appearance: PRESENT: Mild acute distress, disheveled, clearly confused and moaning Head exam: PRESENT: atraumatic, normocephalic Eye exam: PRESENT: conjunctiva pink. ABSENT: scleral icterus Mouth exam: PRESENT: Dry Respiratory exam: PRESENT: clear to auscultation brandon. ABSENT: rales, rhonchi, wheezes Cardiovascular exam: PRESENT: RRR. ABSENT: diastolic murmur, rubs, systolic murmur GI/Abdominal exam: PRESENT: normal bowel sounds, soft. ABSENT: distended, guarding, mass, organolmegaly, rebound, tenderness Neurological exam: PRESENT: Not alert or awake, oriented to person only Psychiatric exam: PRESENT: Agitated Skin exam: PRESENT: dry, intact, warm; multiple healing scabbed wounds on upper extremities consistent with IV drug abuse Results Laboratory Results: 05/19/20 11:56 05/19/20 11:56 05/19/20 05/19/20 11 11:56 11:56 11:56 WBC 23.0 H RBC 4.57 Hgb 13.6 Hct 39.6 MCV 87 MCH 29.7 MCHC 34.3 RDW 13.4 Plt Count 279 Seg Neutrophils % Not Reportable VBG pH 7.36 VBG pCO2 44.6 VBG HCO3 24.3 VBG Base Excess -1.4 Sodium 131.5 L Potassium 3.8 Chloride 91 L Carbon Dioxide 20 L Anion Gap 21 H BUN 23 H Creatinine 0.69 Est GFR ( Amer) > 60 Glucose 399 H Lactic Acid Calcium 9.1 Magnesium 1.9 Total Bilirubin 0.7 AST 14 Alkaline Phosphatase 166 H Total Protein 7.6 Albumin 4.2 Urine Color Urine Appearance Urine pH Ur Specific [place] Urine Protein Urine Glucose (UA) Urine Ketones Urine Blood Urine Nitrite Ur Leukocyte Esterase Urine WBC (Auto) Urine RBC (Auto) 05/19/20 05/19/20 05/19/20 11:56 12:05 14:46 WBC RBC Hgb Hct MCV MCH MCHC RDW Plt Count Seg Neutrophils % VBG pH VBG pCO2 VBG HCO3 VBG Base Excess Sodium Potassium Chloride Carbon Dioxide Anion Gap BUN Creatinine Est GFR ( Amer) Glucose Lactic Acid 2.1 0.9 Calcium Magnesium Total Bilirubin AST Alkaline Phosphatase Total Protein Albumin Urine Color YELLOW Urine Appearance CLEAR Urine pH 6.0 Ur Specific [place] 1.023 Urine Protein 100 H Urine Glucose (UA) >=500 H Urine Ketones 80 H Urine Blood MODERATE H Urine Nitrite NEGATIVE Ur Leukocyte Esterase NEGATIVE Urine WBC (Auto) 1 Urine RBC (Auto) 2 05/19/20 11:56 Troponin I 0.026 Impressions: Chest X-Ray 05/19/20 11:57 IMPRESSION: Subtle ovoid ground-glass opacity of the right mid lung possibly infectious/ inflammatory. Of note, radiographs have limits sensitivity for ground-glass nodules. No dense consolidation. No Significant effusion. Abdomen/Pelvis CT 05/19/20 12:06 IMPRESSION: 1. Asymmetrically enlarged, likely edematous, right kidney suggestive of pyelonephritis. Recommend correlation with UA. No hydronephrosis. 2. No evidence of acute intra-abdominal/pelvic process. Normal appendix. 3. Moderate formed stool throughout the colon. Head CT 05/19/20 12:06 IMPRESSION: NO ACUTE INTRACRANIAL IMAGING FINDINGS. EVIDENCE OF ACUTE STROKE: NO. Assessment and Plan - Diagnosis (1) Sepsis Qualifiers: Sepsis type: sepsis due to unspecified organism Sepsis acute organ dysfunction status: with acute organ dysfunction Severe sepsis acute organ dysfunction type: encephalopathy Severe sepsis shock status: without septic shock Qualified Code(s): A41.9 - Sepsis, unspecified organism; R65.20 - Severe sepsis without septic shock; G93.40 - Encephalopathy, unspecified Is this a current diagnosis for this admission?: Yes Plan: Unclear etiology: Suspect bacteremia and infective endocarditis versus lung abscess versus meningitis/encephalitis Chest CT with contrast ordered Abdomen/pelvis CT showed enlarged right kidney possible pyelonephritis although UA is not infected Possible bacteremia from multiple scabbed skin wounds consistent with IV drug abuse Vancomycin/cefepime Blood cultures Chest x-ray showed right middle lobe opacity of unclear etiology Echocardiogram to look for IE (2) Diabetic keto-acidosis Qualifiers: Diabetes mellitus type: type 1 Diabetes mellitus complication detail: without coma Qualified Code(s): E10.10 - Type 1 diabetes mellitus with ketoacidosis without coma Is this a current diagnosis for this admission?: Yes Plan: Likely precipitated by sepsis, treatment as above Insulin drip started IV fluids, LR initially then changed to D5 normal saline with 20 of potassium once blood sugar is below 250 mg/dL Trend BMP Needs follow-up with endocrinology outpatient ABG ordered (3) Acute metabolic encephalopathy Is this a current diagnosis for this admission?: Yes Plan: Due to sepsis and DKA Treatment as above CT head with no acute findings (4) High anion gap metabolic acidosis Is this a current diagnosis for this admission?: Yes Plan: Treat DKA and sepsis Trend BMP (5) Enlarged kidney Is this a current diagnosis for this admission?: Yes Plan: Unclear etiology Renal ultrasound (6) Heroin abuse Is this a current diagnosis for this admission?: Yes Plan: UDS negative but multiple skin wounds consistent with drug abuse (7) Ulcerative colitis without complications Qualifiers: Ulcerative colitis location: unspecified ulcerative colitis location Qualified Code(s): K51.90 - Ulcerative colitis, unspecified, without complicat ions Is this a current diagnosis for this admission?: Yes Plan: Unclear if patient is on any treatment for this - Time Time Spent with patient: 35 or more minutes Medications reviewed and adjusted accordingly: Yes Anticipated Discharge Disposition: Tertiary Anticipated Discharge Timeframe: within 72 hours - Inpatient Certification Based on my medical assessment, after consideration of the patient's comorbidities, presenting symptoms, or acuity I expect that the services needed warrant INPATIENT care.: Yes I certify that my determination is in accordance with my understanding of Medicare's requirements for reasonable and necessary INPATIENT services [42 CFR 412.3e].: Yes Medical Necessity: Significant Comorbidiites Make Outpatient Treatment Too Risky, Need Close Monitoring Due to Risk of Patient Decompensation, Need For IV Fluids, Need for IV Antibiotics, Risk of Complication if Not Cared For in Hospital, Risk of Diagnosis Which Will Require Inpatient Eval/Care/Monitoring
--- NOTE | 2020-05-19 19:50 | EKG REPORT ---
SEVERITY:- ABNORMAL ECG - SINUS TACHYCARDIA RIGHT ATRIAL ABNORMALITY LEFT AXIS DEVIATION BORDERLINE T ABNORMALITIES, ANT-LAT LEADS : Confirmed by: Rancho Mtz MD 19-May-2020 19:49:38
[2020-05-19] MEDS: NORMAL SALINE 1000 ML 1,000 ML IV PRN (20:12)
[2020-05-19] MEDS ORDERED: ACETAMINOPHEN 650 MG SUPP.RECT PR PRN (20:40)
--- NOTE | 2020-05-19 21:13 | RADIOLOGY REPORT (SQ) ---
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 COMPARISON: CT of abdomen and pelvis from 05/19/2020 TECHNIQUE: Limited sonographic evaluation of the kidneys was performed. FINDINGS: Both kidneys demonstrate normal cortical echogenicity. The right kidney measures up to 12.0 cm in length. The left kidney measures up to 12.0 cm in length. There is fullness of the right renal pelvis which may represent an extrarenal pelvis or mild hydronephrosis. No free intraperitoneal fluid is seen. The visualized portions of the urinary bladder appear grossly unremarkable. The abdominal aorta and inferior vena cava are not well visualized. IMPRESSION: There is fullness of the right renal pelvis which may represent an extrarenal pelvis or mild hydronephrosis.
[2020-05-19] MEDS ORDERED: CEFEPIME 2 GM/D5W RTU 2 GM/50 ML RTUPB IV SCH (22:00)
[2020-05-19] MEDS: CEFEPIME HCL 2 GM in DEXTROSE 5%-WATER 50 ML IV SCH (23:22)
[2020-05-19] MEDS: THIAMINE HCL 100 MG in NORMAL SALINE 50 ML IV SCH (23:24)
[2020-05-20] MEDS: LORAZEPAM INJ 2 MG/1 ML VIAL IV PRN ×5 (00:57→20:53)
[2020-05-20 03:33] LABS: ABSOLUTE LYMPHOCYTES (AUTO) 0.9 10^3/uL (0.5-4.7); ABSOLUTE NEUT (AUTO) 16.5 10^3/uL (1.7-8.2); BASOPHILS % (AUTO) 0.2 % (0-2); HEMOGLOBIN 11.9 g/dL (12.0-15.5); LYMPHOCYTES % (AUTO) 5.1 % (13-45); MEAN CORPUSCULAR HEMOGLOBIN 29.9 pg (27.0-33.4); MEAN CORPUSCULAR VOLUME 86 fl (80-97); MONOCYTES % (AUTO) 5.6 % (3-13); PLATELET COUNT 224 10^3/uL (150-450); RED BLOOD COUNT 3.97 10^6/uL (3.72-5.28); RED CELL DISTRIBUTION WIDTH 13.4 % (11.5-14.0); SEGMENTED NEUTROPHILS % (AUTO) 89.1 % (42-78); TOTAL CELLS COUNTED % (AUTO) 100 %; WHITE BLOOD COUNT 18.5 10^3/uL (4.0-10.5)
[2020-05-20 03:40] LABS: PHOSPHORUS 1.5 mg/dL (2.5-4.5)
[2020-05-20] MEDS: VANCOMYCIN HCL 1,250 MG in DEXTROSE 5%-WATER 250 ML IV SCH ×2 (06:40→18:01)
[2020-05-20] MEDS: NORMAL SALINE 1000 ML 1,000 ML IV PRN ×2 (08:31→16:53)
--- NOTE | 2020-05-20 09:16 | RADIOLOGY REPORT (SQ) ---
EXAM DESCRIPTION: CT CHEST WITH IMAGES COMPLETED DATE/TIME: 05/20/2020 8:52 am REASON FOR STUDY: Suspected lung abscess versus infarction COMPARISON: CT dated 04/30/2016. Chest x-ray dated 05/19/2020. TECHNIQUE: CT scan of the chest performed using helical scanning technique with dynamic intravenous contrast injection. Images reviewed with lung, soft tissue and bone windows. Reconstructed coronal and sagittal MPR and MIP images reviewed. All images stored on PACS. All CT scanners at this facility use dose modulation, iterative reconstruction, and/or weight based d osing when appropriate to reduce radiation dose to as low as reasonably achievable (ALARA). [facility]: Dose Right [facility]: CareDose [facility]: Dose Right [facility]: Teradose 4D [facility]: AudioBeta CONTRAST TYPE AND DOSE: contrast/concentration: Isovue 350.00 mmol/ml; Total Contrast Delivered: 80. 0 ml; Total Saline Delivered: 50.0 ml RENAL FUNCTION: BUN 23 creatinine 0.69. RADIATION DOSE: CT Rad equipment meets quality standard of care and radiation dose reduction techniq ues were employed. CTDIvol: 4.6 mGy. DLP: 189 mGy-cm. . LIMITATIONS: The patient reportedly was scheduled to receive a dose of Ativan but this was not given prior to the CT scan. The patient was combative in the CT department and during contrast administra tion the contrast extravasated into the soft tissues of her arm. No vascular contrast present on the images. FINDINGS: LUNGS AND PLEURA: There is a 2 cm mass in the posterior right lower lobe (axial series 4, image 51). No lobar infiltrates. No pneumothorax. No effusions. HILAR AND MEDIASTINAL STRUCTURES: No identified masses or abnormal nodes. HEART AND VASCULAR STRUCTURES: No aneurysm or dissection. No central pulmonary emboli. No pericardi al effusion. HARDWARE: None in the chest. UPPER ABDOMEN: Fullness of the right kidney, also noted on recent CT of the abdomen. Limited exam. THYROID AND OTHER SOFT TISSUES: No masses. No adenopathy. BONES: No significant finding. OTHER: No other significant finding. IMPRESSION: 2 CM MASS IN THE POSTERIOR RIGHT LOWER LOBE. THIS IS CONCERNING FOR MALIGNANCY. CANNOT EXCLUDE LOCALIZED INFECTION. TECHNICAL DOCUMENTATION: JOB ID: [id number] Quality ID # [id number]: Final reports with documentation of one or more dose reduction techniques (e.g., Au tomated exposure control, adjustment of the mA and/or kV according to patient size, use of iterative reconstruction technique) 2010 [employer]- All Rights Reserved Reading location - IP/workstation name: [email or web address]
[2020-05-20] MEDS ORDERED: VANCOMYCIN HCL INJ 1000 MG VIAL IV SCH (10:00)
[2020-05-20] MEDS: ENOXAPARIN SODIUM INJ 40 MG/0.4 ML DISP.SYRIN SUBCUT SCH (10:31)
[2020-05-20] MEDS: DOCUSATE SODIUM 100 MG CAPSULE PO SCH (10:31)
[2020-05-20] MEDS: CEFEPIME HCL 2 GM in DEXTROSE 5%-WATER 50 ML IV SCH ×2 (10:31→22:13)
[2020-05-20 14:14] LABS: ANION GAP 13 (5-19); BLOOD UREA NITROGEN 24 mg/dL (7-20); CALCIUM 8.8 mg/dL (8.4-10.2); CARBON DIOXIDE 19 mmol/L (22-30); CHLORIDE 108 mmol/L (98-107); GLUCOSE 276 mg/dL (75-110); POTASSIUM 3.6 mmol/L (3.6-5.0)
[2020-05-20] MEDS ORDERED: INSULIN, REGULAR 100 UNIT/100 ML NORMAL SALINE IV PRN ×2 (15:30)
[2020-05-20 16:01] LABS: ANION GAP 12 (5-19); BLOOD UREA NITROGEN 22 mg/dL (7-20); CALCIUM 8.9 mg/dL (8.4-10.2); CARBON DIOXIDE 20 mmol/L (22-30); CHLORIDE 111 mmol/L (98-107); GLUCOSE 179 mg/dL (75-110); POTASSIUM 3.3 mmol/L (3.6-5.0)
--- NOTE | 2020-05-20 16:56 | PDOC PROGRESS REPORT ---
Subjective Subjective:: ИВАН MONTELONGO is a 35 year old female with past medical history significant for IV drug abuse, diabetes, ulcerative colitis, chronic pain who presents to the ED via EMS after her parents called 911 due to the patient having confusion and combativeness. Patient was brought to ED and started on IV fluids. CT of abdomen/pelvis showed enlarged edematous right kidney possible pyelonephritis although UA was not consistent with infection. No hydronephrosis. UA did show massive amount of glucose as well as ketones. Patient has multiple small wounds on her upper extremities consistent with possible injection sites and small areas of potential cellulitis. Reportedly, patient has been off IV drugs which is not consistent with physical exam findings. History cannot be obtained by the patient as she is confused and I have tried many times to contact her family via the phone numbers in the chart and they do not answer the phone or return my calls. History obtained solely from the chart and ED personnel. Head CT showed no acute findings. Chest x-ray showed a subtle ovoid groundglass opacity in the right middle lung infectious or inflammatory. CT chest was not obtained in ED and I have ordered a CT chest to evaluate this possible lung infarction or lung abscess which could have been implanted from IV drug abuse. IV fluids started. Patient became confused and combative and pulled out her IV and she was put in restraints. She is oriented only to herself on admission. Labs are remarkable for a gap acidosis and a blood sugar of 417. She was not yet started on insulin drip. I requested that the ED start this promptly during my initial discussion with attending physician. Patient's troponin is mildly elevated and this is trending. Suspect infected endocarditis as a source of patient's DKA. Echocardiogram ordered. Vancomycin and cefepime started. Blood cultures pending. 05/20/2020 Patient still confused and combative at times. IV Ativan as needed being given intermittently. Per nursing, patient twisted her arm and then was complaining of it hurting. We will get an x-ray to look at her right wrist. Fever has resolved, troponin flat, lipase normal, ammonia negative. A1c is 10. Low phosphorus and elevated lactic acid. Blood cultures growing staph aureus in both bottles. Covid testing is pending. Blood sugar is dropped to an acceptable level. CT chest shows a suspicious mass and I will discuss getting a biopsy with her family. I suspect may be an abscess rather than malignancy but radiologist report states it is very suspicious for malignancy. I have also ordered a lumbar puncture with appropriate labs. Echocardiogram has been done but not read yet. Clinical picture seems consistent with infectious endocarditis with sepsis. Reason For Visit: ACUTE METABOLIC ENCEPHALOPATHY Physical Exam Vital Signs: Temp Pulse Resp BP Pulse Ox 98.8 F 88 16 120/60 97 05/20/20 12:28 05/20/20 14:00 05/20/20 12:28 05/20/20 12:28 05/20/20 12:28 Intake & Output 05/19/20 05/20/20 05/21/20 06:59 06:59 06:59 Intake Total 3103 300 Balance 3103 300 Weight 65.5 kg Exam: General appearance: PRESENT: Mild acute distress, disheveled, still very confused and repeating her birthdate Head exam: PRESENT: atraumatic, normocephalic Eye exam: PRESENT: conjunctiva pink. ABSENT: scleral icterus Mouth exam: PRESENT: Dry Respiratory exam: PRESENT: clear to auscultation brandon. ABSENT: rales, rhonchi, wheezes Cardiovascular exam: PRESENT: RRR. ABSENT: diastolic murmur, rubs, systolic murmur GI/Abdominal exam: PRESENT: normal bowel sounds, soft. ABSENT: distended, guarding, mass, organolmegaly, rebound, tenderness Neurological exam: PRESENT: Not alert or awake, oriented to person only Psychiatric exam: PRESENT: Agitated Skin exam: PRESENT: dry, intact, warm; multiple healing scabbed wounds on upper extremities consistent with IV drug abuse Results Laboratory Results: 05/20/20 03:12 05/20/20 15:30 05/19/20 05/19/20 05/20/20 19:21 20:25 03:12 WBC 18.5 H RBC 3.97 Hgb 11.9 L Hct 34.0 L MCV 86 MCH 29.9 MCHC 35.0 RDW 13.4 Plt Count 224 Seg Neutrophils % 89.1 H Carbonic Acid Cancelled HCO3/H2CO3 Ratio Cancelled ABG pH Cancelled ABG pCO2 Cancelled ABG pO2 Cancelled ABG HCO3 Cancelled ABG O2 Saturation Cancelled ABG Base Excess Cancelled FiO2 Cancelled Sodium Potassium Chloride Carbon Dioxide Anion Gap BUN Creatinine Est GFR ( Amer) Glucose Lactic Acid 3.2 H Calcium Phosphorus Magnesium Ammonia Lipase 05/20/20 05/20/20 05/20/20 03:12 03:12 03:12 WBC RBC Hgb Hct MCV MCH MCHC RDW Plt Count Seg Neutrophils % Carbonic Acid HCO3/H2CO3 Ratio ABG pH ABG pCO2 ABG pO2 ABG HCO3 ABG O2 Saturation ABG Base Excess FiO2 Sodium 139.6 Potassium 3.6 Chloride 108 H Carbon Dioxide 19 L Anion Gap 13 BUN 24 H Creatinine 0.54 Est GFR ( Amer) > 60 Glucose 276 H Lactic Acid Calcium 8.8 Phosphorus 1.5 L Magnesium 2.2 Ammonia < 8.7 L Lipase < 10.0 L 05/20/20 05/20/20 05:35 15:30 WBC RBC Hgb Hct MCV MCH MCHC RDW Plt Count Seg Neutrophils % Carbonic Acid Cancelled HCO3/H2CO3 Ratio Cancelled ABG pH Cancelled ABG pCO2 Cancelled ABG pO2 Cancelled ABG HCO3 Cancelled ABG O2 Saturation Cancelled ABG Base Excess Cancelled FiO2 Cancelled Sodium 142.9 Potassium 3.3 L Chloride 111 H Carbon Dioxide 20 L Anion Gap 12 BUN 22 H Creatinine 0.48 L Est GFR ( Amer) > 60 Glucose 179 H Lactic Acid Calcium 8.9 Phosphorus Magnesium Ammonia Lipase 05/19/20 11:56 Blood Blood Culture (PCR) - Final Staphylococcus Aureus 05/19/20 13:25 Blood Blood Culture (PCR) - Final 05/19/20 05/19/20 05/20/20 11:56 20:15 03:12 Troponin I 0.026 0.041 0.046 Impressions: Renal Ultrasound 05/19/20 00:00 IMPRESSION: There is fullness of the right renal pelvis which may represent an extrarenal pelvis or mild hydronephrosis. Chest X-Ray 05/19/20 11:57 IMPRESSION: Subtle ovoid ground-glass opacity of the right mid lung possibly infectious/ inflammatory. Of note, radiographs have limits sensitivity for ground-glass nodules. No dense consolidation. No Significant effusion. Abdomen/Pelvis CT 05/19/20 12:06 IMPRESSION: 1. Asymmetrically enlarged, likely edematous, right kidney suggestive of pyelonephritis. Recommend correlation with UA. No hydronephrosis. 2. No evidence of acute intra-abdominal/pelvic process. Normal appendix. 3. Moderate formed stool throughout the colon. Head CT 05/19/20 12:06 IMPRESSION: NO ACUTE INTRACRANIAL IMAGING FINDINGS. EVIDENCE OF ACUTE STROKE: NO. Chest CT 05/20/20 08:45 IMPRESSION: 2 CM MASS IN THE POSTERIOR RIGHT LOWER LOBE. THIS IS CONCERNING FOR MALIGNANCY. CANNOT EXCLUDE LOCALIZED INFECTION. Assessment and Plan - Diagnosis (1) Sepsis Qualifiers: Sepsis type: sepsis due to unspecified organism Sepsis acute organ dysfunction status: with acute organ dysfunction Severe sepsis acute organ dysfunction type: encephalopathy Severe sepsis shock status: without septic shock Qualified Code(s): A41.9 - Sepsis, unspecified organism; R65.20 - Severe sepsis without septic shock; G93.40 - Encephalopathy, unspecified Is this a current diagnosis for this admission?: Yes (2) Diabetic keto-acidosis Qualifiers: Diabetes mellitus type: type 1 Diabetes mellitus complication detail: without coma Qualified Code(s): E10.10 - Type 1 diabetes mellitus with ketoacidosis without coma Is this a current diagnosis for this admission?: Yes (3) Acute metabolic encephalopathy Is this a current diagnosis for this admission?: Yes (4) High anion gap metabolic acidosis Is this a current diagnosis for this admission?: Yes (5) Enlarged kidney Is this a current diagnosis for this admission?: Yes (6) Heroin abuse Is this a current diagnosis for this admission?: Yes (7) Ulcerative colitis without complications Qualifiers: Ulcerative colitis location: unspecified ulcerative colitis location Qualified Code(s): K51.90 - Ulcerative colitis, unspecified, without complications Is this a current diagnosis for this admission?: Yes (8) Mass of lower lobe of right lung Is this a current diagnosis for this admission?: Yes Plan: Seen on chest CT with contrast Biopsy to be needed - Plan Summary Summary: (1) Sepsis Qualifiers: Sepsis type: sepsis due to unspecified organism Sepsis acute organ dysfunction status: with acute organ dysfunction Severe sepsis acute organ dysfunction type: encephalopathy Severe sepsis shock status: without septic shock Qualified Code(s): A41.9 - Sepsis, unspecified organism; R65.20 - Severe sepsis without septic shock; G93.40 - Encephalopathy, unspecified Is this a current diagnosis for this admission?: Yes Plan: Unclear etiology: Suspect bacteremia from infective endocarditis versus lung abscess versus meningitis/encephalitis Chest CT with contrast showed 2 cm mass in posterior right lobe concerning for malignancy Abdomen/pelvis CT showed enlarged right kidney possible pyelonephritis although UA is not infected Possible bacteremia from multiple scabbed skin wounds consistent with IV drug abuse Vancomycin/cefepime Blood cultures growing staph aureus Chest x-ray showed right middle lobe opacity of unclear etiology Echocardiogram pending Lumbar puncture (2) Diabetic keto-acidosis Qualifiers: Diabetes mellitus type: type 1 Diabetes mellitus complication detail: without coma Qualified Code(s): E10.10 - Type 1 diabetes mellitus with ketoacidosis without coma Is this a current diagnosis for this admission?: Yes Plan: Likely precipitated by sepsis, treatment as above Insulin drip started IV fluids, LR initially then changed to D5 normal saline with 20 of potassium once blood sugar is below 250 mg/dL Trend BMP Needs follow-up with endocrinology outpatient ABG unable to be done due to multiple blood draw problems (3) Acute metabolic encephalopathy Is this a current diagnosis for this admission?: Yes Plan: Due to sepsis and DKA Treatment as above CT head with no acute findings (4) High anion gap metabolic acidosis Is this a current diagnosis for this admission?: Yes Plan: Treat DKA and sepsis Trend BMP (5) Enlarged kidney Is this a current diagnosis for this admission?: Yes Plan: Unclear etiology Renal ultrasound showed possible mild hydronephrosis versus extrarenal pelvis (6) Heroin abuse Is this a current diagnosis for this admission?: Yes Plan: UDS negative but multiple skin wounds consistent with drug abuse (7) Ulcerative colitis without complications Qualifiers: Ulcerative colitis location: unspecified ulcerative colitis location Qualified Code(s): K51.90 - Ulcerative colitis, unspecified, without complicat ions Is this a current diagnosis for this admission?: Yes Plan: Unclear if patient is on any treatment for this - Time Time Spent with patient: 35 or more minutes Medications reviewed and adjusted accordingly: Yes Anticipated Discharge Disposition: Tertiary Anticipated Discharge Timeframe: within 72 hours - Inpatient Certification Based on my medical assessment, after consideration of the patient's comorbidities, presenting symptoms, or acuity I expect that the services needed warrant INPATIENT care.: Yes I certify that my determination is in accordance with my understanding of Medicare's requirements for reasonable and necessary INPATIENT services [42 CFR 412.3e].: Yes Medical Necessity: Significant Comorbidiites Make Outpatient Treatment Too Risky, Need Close Monitoring Due to Risk of Patient Decompensation, Need For IV Fluids, Need for IV Antibiotics, Risk of Complication if Not Cared For in Hospital, Risk of Diagnosis Which Will Require Inpatient Eval/Care/Monitoring
[2020-05-20] MEDS ORDERED: LORAZEPAM INJ 2 MG/1 ML VIAL ONE (17:04)
--- NOTE | 2020-05-20 17:35 | XCELERA REPORT ---
[address] [address] Transthoracic Echocardiogram Report Name: ИВАН MONTELONGO Age: 35 yrs Gender: Female : 1985 Patient Status: Inpatient Patient Location: [facility]^A Study Date: 05/20/2020 09:46 AM History: CHF ENDOCARDITIS Height: 70 in Weight: 146 lb BSA: 1.8 m2 Procedure: A complete two-dimensional transthoracic echocardiogram was performed (2D, M-mode, spectral and color flow Doppler). The study was technically difficult with many images being suboptimal in quality. Reason For Study: CHF, ENDOCARDITIS Previous Evaluation: No previous studies were available. History: CHF. IE. Ordering Physician: JENNIFER GARCIA Performed By: Lakisha Olmedo Interpretation Summary Left ventricular systolic function is normal. The Ejection Fraction estimate is 55-60% The right ventricle is normal in size and function. There is a trace amount of mitral regurgitation There is no aortic valve stenosis Cannot exclude aortic valvular vegetation. There is a mild amount of tricuspid regurgitation There is mild pulmonary hypertension by echo There is no pericardial effusion. MMode/2D Measurements & Calculations RVDd: 1.7 cm LVIDd: 4.3 cm FS: 32.1 % Ao root diam: 2.7 cm IVSd: 1.1 cm LVIDs: 2.9 cm EDV(Teich): 81.9 ml Ao root area: 5.8 cm2 LVPWd: 1.1 cm ESV(Teich): 32.2 ml LA dimension: 2.3 cm EF(Teich): 60.7 % Doppler Measurements & Calculations MV E max faraz: MV P1/2t max fraaz: Ao V2 max: LV V1 max P.6 cm/sec 105.5 cm/sec 133.4 cm/sec 7.1 mmHg MV A max faraz: MV P1/2t: 63.8 msec Ao max PG: LV V1 max: 109.1 cm/sec MVA(P1/2t): 3.4 cm2 7.1 mmHg 133.3 cm/sec MV E/A: 0.98 MV dec slope: 483.9 cm/sec2 MV dec time: 0.21 sec PA V2 max: TR max faraz: RAP systole: MV P1/2t-pr_phl: 117.3 cm/sec 232.1 cm/sec 10.0 mmHg 63.8 msec PA max P.5 mmHgTR max P.6 mmHg RVSP(TR): 31.6 mmHg Left Ventricle The left ventricle is normal in size. There is borderline concentric left ventricular hypertrophy. Left ventricular systolic function is normal. The Ejection Fraction estimate is 55-60%. Doppler measurements suggest normal left ventricular diastolic function. Right Ventricle The right ventricle is normal in size and function. Atria The right atrium is normal. The left atrial size is normal. The interatrial septum is intact with no evidence for an atrial septal defect. There is no Doppler evidence for an interatrial shunt. Mitral Valve The mitral valve is grossly normal. There is no mitral valve stenosis. There is a trace amount of mitral regurgitation. Aortic Valve The aortic valve is grossly normal. The aortic valve opens well. Cannot exclude aortic valvular vegetation. There is no aortic valve stenosis. There is a trace amount of aortic regurgitation. Tricuspid Valve There is no tricuspid stenosis. There is a mild amount of tricuspid regurgitation. There is mild pulmonary hypertension by echo. Right ventricular systolic pressure is estimated to be elevated at 30-40mmHg. Pulmonic Valve The pulmonic valve is not well seen, but is grossly normal. There is no pulmonic valvular stenosis. There is a trace amount of pulmonic regurgitation. Great Vessels The aortic root is normal size. The inferior vena cava appeared normal and decreased > 50% with respiration (RAP 5-10 mmHg). Effusions There is no pericardial effusion. : JENNIFER GARCIA Anil
[2020-05-20] MEDS ORDERED: (PENDING PHARMACY ID) (Buprenorphine Hcl [Buprenorphine Hcl] 8 MG) SL SCH (18:00)
--- NOTE | 2020-05-20 18:12 | RADIOLOGY REPORT (SQ) ---
EXAM DESCRIPTION: WRIST RIGHT 2 VIEWS IMAGES COMPLETED DATE/TIME: 05/20/2020 5:27 pm REASON FOR STUDY: twisted her own arm in restraints COMPARISON: None. NUMBER OF VIEWS: Two views. TECHNIQUE: AP and lateral radiographic images acquired of the right wrist. LIMITATIONS: None. FINDINGS: MINERALIZATION: Normal. BONES: No acute fracture or dislocation. No worrisome bone lesions. Normal alignment. SOFT TISSUES: No soft tissue swelling. No foreign body. OTHER: No other significant finding. IMPRESSION: NEGATIVE STUDY OF THE RIGHT WRIST. NO RADIOGRAPHIC EVIDENCE OF ACUTE INJURY. TECHNICAL DOCUMENTATION: JOB ID: [id number] 2010 [employer]- All Rights Reserved Reading location - IP/workstation name: [email or web address]
[2020-05-20] MEDS ORDERED: POTASSIUM CHLORIDE 20 MEQ/50 ML RTU IV SCH (22:00)
[2020-05-20] MEDS ORDERED: ACYCLOVIR SODIUM INJ/PF 500 MG/10 ML SDV IV SCH (22:00)
[2020-05-20] MEDS: THIAMINE HCL 100 MG in NORMAL SALINE 50 ML IV SCH (22:13)
[2020-05-20] MEDS: ACYCLOVIR SODIUM 700 MG in NORMAL SALINE 100 ML IV SCH (22:13)
[2020-05-21] MEDS: NORMAL SALINE 1000 ML 1,000 ML IV PRN ×2 (00:07→23:27)
[2020-05-21] MEDS: POTASSIUM CHLORIDE 20 MEQ/50 ML RTU IV SCH ×2 (00:08→02:08)
[2020-05-21] MEDS: LORAZEPAM INJ 2 MG/1 ML VIAL IV PRN (00:46)
[2020-05-21 05:58] LABS: ABSOLUTE MONOCYTES (AUTO) 0.6 10^3/uL (0.1-1.4); ABSOLUTE NEUT (AUTO) 11.6 10^3/uL (1.7-8.2); BASOPHILS % (AUTO) 0.3 % (0-2); EOSINOPHILS % (AUTO) 0.1 % (0-6); HEMATOCRIT 31.5 % (36.0-47.0); HEMOGLOBIN 10.9 g/dL (12.0-15.5); LYMPHOCYTES % (AUTO) 7.8 % (13-45); MEAN CORPUSCULAR HEMOGLOBIN 29.8 pg (27.0-33.4); MEAN CORPUSCULAR HGB CONC 34.4 g/dL (32.0-36.0); MEAN CORPUSCULAR VOLUME 86 fl (80-97); MONOCYTES % (AUTO) 4.4 % (3-13); PLATELET COUNT 203 10^3/uL (150-450); RED BLOOD COUNT 3.65 10^6/uL (3.72-5.28); RED CELL DISTRIBUTION WIDTH 13.6 % (11.5-14.0); SEGMENTED NEUTROPHILS % (AUTO) 87.4 % (42-78); TOTAL CELLS COUNTED % (AUTO) 100 %; WHITE BLOOD COUNT 13.3 10^3/uL (4.0-10.5)
[2020-05-21] MEDS ORDERED: HALOPERIDOL LACTATE INJ 5 MG/1 ML VIAL IM ONE ×3 (06:00→21:00)
[2020-05-21 06:18] LABS: ANION GAP 14 (5-19); BLOOD UREA NITROGEN 25 mg/dL (7-20); CALCIUM 8.8 mg/dL (8.4-10.2); CARBON DIOXIDE 18 mmol/L (22-30); CHLORIDE 110 mmol/L (98-107); GLUCOSE 275 mg/dL (75-110); POTASSIUM 3.6 mmol/L (3.6-5.0)
[2020-05-21 06:49] LABS: VANCOMYCIN,TROUGH 6.7 ug/mL (5.0-20.0)
[2020-05-21] MEDS: VANCOMYCIN HCL 1,250 MG in DEXTROSE 5%-WATER 250 ML IV SCH (07:00)
[2020-05-21] MEDS ORDERED: INSULIN REG, HUMAN 100 UNIT/ML 3 ML VIAL (PYX) SUBCUT SCH (08:00)
[2020-05-21] MEDS ORDERED: PHYTONADIONE INJ 10 MG/1 ML AMPULE IV ONE (08:17)
[2020-05-21] MEDS ORDERED: PHYTONADIONE INJ 10 MG/1 ML AMPULE SUBCUT ONE (09:15)
[2020-05-21] MEDS: DOCUSATE SODIUM 100 MG CAPSULE PO SCH (09:18)
[2020-05-21] MEDS: ENOXAPARIN SODIUM INJ 40 MG/0.4 ML DISP.SYRIN SUBCUT SCH (09:18)
[2020-05-21] MEDS ORDERED: INSULIN GLARGINE,HUM.REC.ANLOG 1,000 UNIT/10 ML VIAL SUBCUT SCH (10:00)
[2020-05-21 10:31] LABS: INTERNATIONAL RATION (INR) 1.65; PROTHROMBIN TIME 19.6 SEC (11.4-15.4)
[2020-05-21] MEDS: INSULIN REG, HUMAN 100 UNIT/ML 3 ML VIAL (PYX) SUBCUT SCH ×2 (13:01→20:07)
[2020-05-21 14:07] LABS: INTERNATIONAL RATION (INR) 1.71; PROTHROMBIN TIME 20.2 SEC (11.4-15.4)
[2020-05-21 14:22] LABS: ANION GAP 13 (5-19); BLOOD UREA NITROGEN 26 mg/dL (7-20); CALCIUM 8.9 mg/dL (8.4-10.2); CARBON DIOXIDE 20 mmol/L (22-30); CHLORIDE 112 mmol/L (98-107); GLUCOSE 221 mg/dL (75-110); POTASSIUM 3.3 mmol/L (3.6-5.0)
--- NOTE | 2020-05-21 15:54 | PDOC PROGRESS REPORT ---
Subjective Subjective:: ИВАН MONTELONGO is a 35 year old female with past medical history significant for IV drug abuse, diabetes, ulcerative colitis, chronic pain who presents to the ED via EMS after her parents called 911 due to the patient having confusion and combativeness. Patient was brought to ED and started on IV fluids. CT of abdomen/pelvis showed enlarged edematous right kidney possible pyelonephritis although UA was not consistent with infection. No hydronephrosis. UA did show massive amount of glucose as well as ketones. Patient has multiple small wounds on her upper extremities consistent with possible injection sites and small areas of potential cellulitis. Reportedly, patient has been off IV drugs which is not consistent with physical exam findings. History cannot be obtained by the patient as she is confused and I have tried many times to contact her family via the phone numbers in the chart and they do not answer the phone or return my calls. History obtained solely from the chart and ED personnel. Head CT showed no acute findings. Chest x-ray showed a subtle ovoid groundglass opacity in the right middle lung infectious or inflammatory. CT chest was not obtained in ED and I have ordered a CT chest to evaluate this possible lung infarction or lung abscess which could have been implanted from IV drug abuse. IV fluids started. Patient became confused and combative and pulled out her IV and she was put in restraints. She is oriented only to herself on admission. Labs are remarkable for a gap acidosis and a blood sugar of 417. She was not yet started on insulin drip. I requested that the ED start this promptly during my initial discussion with attending physician. Patient's troponin is mildly elevated and this is trending. Suspect infected endocarditis as a source of patient's DKA. Echocardiogram ordered. Vancomycin and cefepime started. Blood cultures pending. 05/20/2020 Patient still confused and combative at times. IV Ativan as needed being given intermittently. Per nursing, patient twisted her arm and then was complaining of it hurting. We will get an x-ray to look at her right wrist. Fever has resolved, troponin flat, lipase normal, ammonia negative. A1c is 10. Low phosphorus and elevated lactic acid. Blood cultures growing staph aureus in both bottles. Covid testing is pending. Blood sugar is dropped to an acceptable level. CT chest shows a suspicious mass and I will discuss getting a biopsy with her family. I suspect may be an abscess rather than malignancy but radiologist report states it is very suspicious for malignancy. I have also ordered a lumbar puncture with appropriate labs. Echocardiogram has been done but not read yet. Clinical picture seems consistent with infectious endocarditis with sepsis. 05/21/2020 Patient's mentation has not improved in any meaningful way. She continues to answer almost all questions with her birthdate. White blood cell count is trending down, blood sugar is now in the mid 200s and we have restarted subcutaneous insulin. Blood cultures are now growing MSSA in both bottles and patient is continued on broad-spectrum antibiotics for now. Echocardiogram showed normal cardiac function with mild pulmonary hypertension and no vegetations. Lumbar puncture has been delayed due to INR being approximately 1.6 and the radiologist would like it at 1.5 or below. Patient was given vitamin K today and recheck of INR is actually higher. Patient has no signs of bleeding. PICC line will be placed today. MRI brain ordered however according to patient's mother she has a broken needle in her right arm. I have consulted general surgery to remove this broken needle given that per the x-rays it seems to be rather superficial. We will wait to see what they think about removing it. Antibiotics continue. BABAK ordered. Right wrist x-ray did not show any fractures. Patient remains in restraints for her own safety. Covid is negative. She should be moved to a general IMCU bed as soon as possible. Reason For Visit: ACUTE METABOLIC ENCEPHALOPATHY Physical Exam Vital Signs: Temp Pulse Resp BP Pulse Ox 98.4 F 94 20 95/64 L 100 05/21/20 10:00 05/21/20 14:00 05/21/20 08:41 05/21/20 08:41 05/21/20 08:41 Intake & Output 05/20/20 05/21/20 05/22/20 06:59 06:59 06:59 Intake Total 3103 3707 Balance 3103 3707 Weight 65.5 kg 65.5 kg Exam: General appearance: PRESENT: Mild acute distress, disheveled, still confused without any significant improvement Head exam: PRESENT: atraumatic, normocephalic Eye exam: PRESENT: conjunctiva pink. ABSENT: scleral icterus Mouth exam: PRESENT: Dry Respiratory exam: PRESENT: clear to auscultation brandon. ABSENT: rales, rhonchi, wheezes Cardiovascular exam: PRESENT: RRR. ABSENT: diastolic murmur, rubs, systolic murmur GI/Abdominal exam: PRESENT: normal bowel sounds, soft. ABSENT: distended, guarding, mass, organolmegaly, rebound, tenderness Neurological exam: PRESENT: Not alert or awake, oriented to person only Psychiatric exam: PRESENT: Agitated Skin exam: PRESENT: dry, intact, warm; multiple healing scabbed wounds on upper extremities consistent with IV drug abuse Results Laboratory Results: 05/21/20 05:04 05/21/20 13:30 05/20/20 05/21/20 05/21/20 15:30 05:04 05:04 WBC 13.3 H RBC 3.65 L Hgb 10.9 L Hct 31.5 L MCV 86 MCH 29.8 MCHC 34.4 RDW 13.6 Plt Count 203 Seg Neutrophils % 87.4 H Sodium 142.9 Potassium 3.3 L Chloride 111 H Carbon Dioxide 20 L Anion Gap 12 BUN 22 H Creatinine 0.48 L 0.53 Est GFR ( Amer) > 60 > 60 Glucose 179 H Calcium 8.9 05/21/20 05/21/20 05:04 13:30 WBC RBC Hgb Hct MCV MCH MCHC RDW Plt Count Seg Neutrophils % Sodium 142.0 144.7 Potassium 3.6 3.3 L Chloride 110 H 112 H Carbon Dioxide 18 L 20 L Anion Gap 14 13 BUN 25 H 26 H Creatinine 0.52 0.49 L Est GFR ( Amer) > 60 > 60 Glucose 275 H 221 H Calcium 8.8 8.9 05/19/20 11:56 Blood Blood Culture (PCR) - Final Staphylococcus Aureus 05/19/20 11:56 Blood Blood Culture - Final Staphylococcus Aureus 05/19/20 13:25 Blood Blood Culture (PCR) - Final 05/19/20 05/19/20 05/20/20 11:56 20:15 03:12 Troponin I 0.026 0.041 0.046 Impressions: Renal Ultrasound 05/19/20 00:00 IMPRESSION: There is fullness of the right renal pelvis which may represent an extrarenal pelvis or mild hydronephrosis. Chest X-Ray 05/19/20 11:57 IMPRESSION: Subtle ovoid ground-glass opacity of the right mid lung possibly i nfectious/ inflammatory. Of note, radiographs have limits sensitivity for ground-glass nodules. No dense consolidation. No Significant effusion. Abdomen/Pelvis CT 05/19/20 12:06 IMPRESSION: 1. Asymmetrically enlarged, likely edematous, right kidney suggestive of pyelonephritis. Recommend correlation with UA. No hydronephrosis. 2. No evidence of acute intra-abdominal/pelvic process. Normal appendix. 3. Moderate formed stool throughout the colon. Head CT 05/19/20 12:06 IMPRESSION: NO ACUTE INTRACRANIAL IMAGING FINDINGS. EVIDENCE OF ACUTE STROKE: NO. Wrist X-Ray 05/20/20 00:00 IMPRESSION: NEGATIVE STUDY OF THE RIGHT WRIST. NO RADIOGRAPHIC EVIDENCE OF ACUTE INJURY. Chest CT 05/20/20 08:45 IMPRESSION: 2 CM MASS IN THE POSTERIOR RIGHT LOWER LOBE. THIS IS CONCERNING FOR MALIGNANCY. CANNOT EXCLUDE LOCALIZED INFECTION. Assessment and Plan - Diagnosis (1) Sepsis Qualifiers: Sepsis type: sepsis due to unspecified organism Sepsis acute organ dysfunction status: with acute organ dysfunction Severe sepsis acute organ dysfunction type: encephalopathy Severe sepsis shock status: without septic s hock Qualified Code(s): A41.9 - Sepsis, unspecified organism; R65.20 - Severe sepsis without septic shock; G93.40 - Encephalopathy, unspecified Is this a current diagnosis for this admission?: Yes (2) Diabetic keto-acidosis Qualifiers: Diabetes mellitus type: type 1 Diabetes mellitus complication detail: without coma Qualified Code(s): E10.10 - Type 1 diabetes mellitus with ketoacidosis without coma Is this a current diagnosis for this admission?: Yes (3) Acute metabolic encephalopathy Is this a current diagnosis for this admission?: Yes (4) High anion gap metabolic acidosis Is this a current diagnosis for this admission?: Yes (5) Enlarged kidney Is this a current diagnosis for this admission?: Yes (6) Heroin abuse Is this a current diagnosis for this admission?: Yes (7) Ulcerative colitis without complications Qualifiers: Ulcerative colitis location: unspecified ulcerative colitis location Qualified Code(s): K51.90 - Ulcerative colitis, unspecified, without com plications Is this a current diagnosis for this admission?: Yes (8) Mass of lower lobe of right lung Is this a current diagnosis for this admission?: Yes (9) Injury due to hypodermic needle Is this a current diagnosis for this admission?: Yes Plan: Previous broken needle implanted in the right forearm near elbow/humerus General surgery consulted for removal - Plan Summary Summary: (1) Sepsis Qualifiers: Sepsis type: sepsis due to unspecified organism Sepsis acute organ dysfunction status: with acute organ dysfunction Severe sepsis acute organ dysfunction type: encephalopathy Severe sepsis shock status: without septic shock Qualified Code(s): A41.9 - Sepsis, unspecified organism; R65.20 - Severe sepsis without septic shock; G93.40 - Encephalopathy, unspecified Is this a current diagnosis for this admission?: Yes Plan: Unclear etiology: Suspect bacteremia from infective endocarditis versus lung abscess versus meningitis/encephalitis Chest CT with contrast showed 2 cm mass in posterior right lobe concerning for malignancy Abdomen/pelvis CT showed enlarged right kidney possible pyelonephritis although UA is not infected Possible bacteremia from multiple scabbed skin wounds consistent with IV drug abuse Vancomycin/cefepime Blood cultures growing staph aureus 2/2 bottles Chest x-ray showed right middle lobe opacity of unclear etiology Echocardiogram showed normal cardiac function, negative for vegetations, mild pulmonary hypertension Lumbar puncture delayed due to elevated INR (2) Diabetic keto-acidosis Qualifiers: Diabetes mellitus type: type 1 Diabetes mellitus complication detail: without coma Qualified Code(s): E10.10 - Type 1 diabetes mellitus with ketoacidosis without coma Is this a current diagnosis for this admission?: Yes Plan: Likely precipitated by sepsis, treatment as above Insulin drip started, transition to subcutaneous Lantus and sliding scale insulin IV fluids, LR initially then changed to D5 normal saline with 20 of potassium once blood sugar is below 250 mg/dL Trend BMP Needs follow-up with endocrinology outpatient ABG unable to be done due to multiple blood draw problems (3) Acute metabolic encephalopathy Is this a current diagnosis for this admission?: Yes Plan: Due to sepsis and DKA Treatment as above CT head with no acute findings (4) High anion gap metabolic acidosis Is this a current diagnosis for this admission?: Yes Plan: Treat DKA and sepsis Trend BMP (5) Enlarged kidney Is this a current diagnosis for this admission?: Yes Plan: Unclear etiology Renal ultrasound showed possible mild hydronephrosis versus extrarenal pelvis (6) Heroin abuse Is this a current diagnosis for this admission?: Yes Plan: UDS negative but multiple skin wounds consistent with drug abuse (7) Ulcerative colitis without complications Qualifiers: Ulcerative colitis location: unspecified ulcerative colitis location Qualified Code(s): K51.90 - Ulcerative colitis, unspecified, without complications Is this a current diagnosis for this admission?: Yes Plan: Unclear if patient is on any treatment for this (8) Mass of lower lobe of right lung Is this a current diagnosis for this admission?: Yes Needs biopsy Consulted pulmonology for their opinion on approach for biopsy (9) Injury due to hypodermic needle Is this a current diagnosis for this admission?: Yes Plan: Previous broken needle implanted in the right forearm near elbow/humerus General surgery consulted for removal - Time Time Spent with patient: 35 or more minutes Medications reviewed and adjusted accordingly: Yes Anticipated Discharge Disposition: Tertiary Anticipated Discharge Timeframe: within 72 hours - Inpatient Certification Based on my medical assessment, after consideration of the patient's comorbidities, presenting symptoms, or acuity I expect that the services needed warrant INPATIENT care.: Yes I certify that my determination is in accordance with my understanding of Medicare's requirements for reasonable and necessary INPATIENT services [42 CFR 412.3e].: Yes Medical Necessity: Significant Comorbidiites Make Outpatient Treatment Too Risky, Need Close Monitoring Due to Risk of Patient Decompensation, Need For IV Fluids, Need for IV Antibiotics, Risk of Complication if Not Cared For in Hospital, Risk of Diagnosis Which Will Require Inpatient Eval/Care/Monitoring
[2020-05-21] MEDS: ACYCLOVIR SODIUM 700 MG in NORMAL SALINE 100 ML IV SCH ×2 (15:59→16:10)
--- NOTE | 2020-05-21 16:07 | RADIOLOGY REPORT (SQ) ---
EXAM DESCRIPTION: HAND LEFT 2 VIEWS IMAGES COMPLETED DATE/TIME: 05/21/2020 2:38 pm REASON FOR STUDY: LOCATE BROKEN NEEDLE COMPARISON: None. EXAM PARAMETERS: NUMBER OF VIEWS: Two view. TECHNIQUE: AP and lateral radiographic images acquired of the left hand. LIMITATIONS: None. FINDINGS: MINERALIZATION: Normal. BONES: No acute fracture or dislocation. No worrisome bone lesions. JOINTS: No effusions. SOFT TISSUES: No soft tissue swelling. No foreign body. OTHER: No other significant finding. IMPRESSION: No radiopaque foreign body identified TECHNICAL DOCUMENTATION: JOB ID: [id number] 2010 [employer]- All Rights Reserved Reading location - IP/workstation name: [id number]
--- NOTE | 2020-05-21 16:10 | RADIOLOGY REPORT (SQ) ---
EXAM DESCRIPTION: HUMERUS RIGHT IMAGES COMPLETED DATE/TIME: 05/21/2020 2:38 pm REASON FOR STUDY: FOREIGN BODY CHECK BROKEN NEEDLE COMPARISON: Forearm films same date NUMBER OF VIEWS: Two views. TECHNIQUE: Two radiographic images were acquired of the right humerus to include elbow and shoulder in at least one projection. LIMITATIONS: None. FINDINGS: MINERALIZATION: Normal. BONES: No acute fracture or dislocation. No worrisome bone lesions. SOFT TISSUES: 7 mm needle fragment in the antecubital fossa soft tissues OTHER: No other significant finding. IMPRESSION: 7 mm needle fragment in the antecubital fossa soft tissues TECHNICAL DOCUMENTATION: JOB ID: [id number] 2010 [employer]- All Rights Reserved Reading location - IP/workstation name: [id number]
--- NOTE | 2020-05-21 16:10 | RADIOLOGY REPORT (SQ) ---
EXAM DESCRIPTION: FOREARM BILATERAL 2 VIEWS IMAGES COMPLETED DATE/TIME: 05/21/2020 2:38 pm REASON FOR STUDY: Locate broken needle. COMPARISON: Humerus films same date NUMBER OF VIEWS: Two views. TECHNIQUE: Two radiographic images acquired of the right forearm, including elbow and wrist in at le ast one projection. LIMITATIONS: None. FINDINGS: MINERALIZATION: Normal. BONES: No acute fracture. No worrisome bone lesions. SOFT TISSUES: 7 mm needle fragment in the antecubital fossa soft tissues OTHER: No other significant finding. IMPRESSION: 7 mm needle fragment in the antecubital fossa soft tissues TECHNICAL DOCUMENTATION: JOB ID: [id number] 2010 [employer]- All Rights Reserved Reading location - IP/workstation name: [id number]
--- NOTE | 2020-05-21 16:36 | RADIOLOGY REPORT (SQ) ---
EXAM DESCRIPTION: NOT FOR OR FLUORO TO 1 HR IMAGES COMPLETED DATE/TIME: 05/21/2020 3:06 pm REASON FOR STUDY: Poor peripheral access, ATTEMPTED PICC LINE, PT COMBATIVE COMPARISON: Humerus and forearm films same date FLUOROSCOPY TIME: 31 seconds 1 digital fluoroscopic image saved to PACS. TECHNIQUE: Intra-operative images acquired during surgical procedure to evaluate progress. NUMBER OF IMAGES: 1 digital fluoroscopic image LIMITATIONS: None. FINDINGS: Combative patient during PICC line attempt. Unsuccessful at line placement. IMPRESSION: Single fluoro images obtained during unsuccessful right PICC line placement COMMENT: Quality ID [id number]: Final reports for procedures using fluoroscopy that document radiation exp osure indices, or exposure time and number of fluorographic images (if radiation exposure indices are not available) Please consult full operative report of the attending physician for description of the procedure. TECHNICAL DOCUMENTATION: JOB ID: [id number] 2010 [employer]- All Rights Reserved Reading location - IP/workstation name: [id number]
[2020-05-21] MEDS ORDERED: LORAZEPAM INJ 2 MG/1 ML VIAL ONE (17:10)
[2020-05-21] MEDS ORDERED: LORAZEPAM INJ 2 MG/1 ML VIAL IM ONE ×6 (18:00→23:30)
--- NOTE | 2020-05-21 19:11 | ADVANCED CARE ---
- Diagnosis (1) Sepsis Diagnosis Current: Yes (2) Diabetic keto-acidosis Diagnosis Current: Yes (3) Acute metabolic encephalopathy Diagnosis Current: Yes (4) High anion gap metabolic acidosis Diagnosis Current: Yes (5) Enlarged kidney Diagnosis Current: Yes (6) Heroin abuse Diagnosis Current: Yes (7) Ulcerative colitis without complications Diagnosis Current: Yes (8) Mass of lower lobe of right lung Diagnosis Current: Yes (9) Injury due to hypodermic needle Diagnosis Current: Yes Resuscitation Status: Full Code Discussion: Admitting diagnosis: Sepsis All aspects of code status discussed with patient/POA including cardioversion, chest compressions, and intubation and the patient/POA indicated they wish to be full code MPOA is designated as: Mother, Malena Noonan Time spent: Greater than 16 minutes Time Spent: Greater than 16 minutes
[2020-05-21] MEDS: VANCOMYCIN HCL 1,500 MG in DEXTROSE 5%-WATER 250 ML IV SCH (20:08)
[2020-05-21 22:05] LABS: ANION GAP 15 (5-19); BLOOD UREA NITROGEN 26 mg/dL (7-20); CALCIUM 8.9 mg/dL (8.4-10.2); CARBON DIOXIDE 20 mmol/L (22-30); CHLORIDE 110 mmol/L (98-107); GLUCOSE 289 mg/dL (75-110); POTASSIUM 3.4 mmol/L (3.6-5.0)
[2020-05-21] MEDS ORDERED: LIDOCAINE 1% INJ-PF (10 MG/ML) 30 ML SDV ONE (22:08)
[2020-05-21] MEDS: THIAMINE HCL 100 MG in NORMAL SALINE 50 ML IV SCH (23:37)
--- NOTE | 2020-05-21 23:52 | RADIOLOGY REPORT (SQ) ---
CHEST X-RAY 1 VIEW on 05/21/2020 11:00 PM CLINICAL INDICATION: Central line placement COMPARISON: Chest x-ray from 06-[address] from 05/20/2020 FINDINGS: New right IJ central venous catheter tip is at the cavoatrial junction. There is no pneumothorax. There is new right paratracheal prominence. While this could be artifactual this is worrisome for possible developing mediastinal hemorrhage from recent line placement. Consider CT follow-up. The patient's known nodule in the right upper lobe is again noted please refer to recent CT. The lungs are otherwise clear. Heart is within normal limits for size. IMPRESSION: 1. New right paratracheal prominence raising question of new mediastinal hemorrhage from recent line placement, consider follow-up CT. 2. No pneumothorax and otherwise no significant change.
--- NOTE | 2020-05-22 00:29 | Operative Report ---
Operative Report DATE OF SURGERY: 05/21/20 PREOPERATIVE DIAGNOSIS: Poor peripheral veins for IV access and failed placement of PICC line POSTOPERATIVE DIAGNOSIS: Same OPERATION: Placement of right internal jugular vein triple-lumen catheter with ultrasound guidance SURGEON: CHARLES WILLINGHAM ANESTHESIA: Local TISSUE REMOVED OR ALTERED: None COMPLICATIONS: Possible bleeding in the mediastinum ESTIMATED BLOOD LOSS: 10 cc QUANTITATIVE BLOOD LOSS: 10 INTRAOPERATIVE FINDINGS: Normal right internal jugular vein on ultrasound PROCEDURE: An attempt to place a right internal jugular vein catheter was done later this afternoon. Patient was given about 3 mg of IM Ativan and 5 mg of Haldol. However after puncturing the vein attempting to place the guidewire patient started moving despite restraining her. The initial attempt was then terminated. I was only able to place a guidewire to about 10cm before she started moving around. The guidewire was then removed and pressure applied to the puncture site for a minute. There is no active bleeding noted. Tonight patient was then further sedated and the nurses were able to place a small IV in the right foot and despite 3 mg of IM Ativan and 5 mg of Haldol patient still continues to move and quite agitated. The nurse was then able to inject 1 mg of Ativan IV through the vein and the foot and the patient was more subdued at this time. Next local anesthesia was infiltrated along the right internal jugular vein area were initial puncture was done. The internal jugular vein was then punctured the same site and dark blood was noted to come out of the needle and nonpulsatile. This time a guidewire was inserted through the needle quite easily. The puncture site was dilated and a triple-lumen catheter inserted through the guidewire to a distance of about 15 cm. The catheter was then anchored to the skin with 3-0 nylon. Biopatch placed at the insertion site and all the 3 ports aspirated blood easily and also easily instilled saline. A transparent sterile dressing was then placed over the Biopatch and catheter. Chest x-ray was then obtained which showed new prominence of the mediastinum possibly due to the extravasation of blood with because of the initial attempt on catheter placement. Since the interval between the initial catheter attempt was about 5 to 6 hours, I doubt if there is still further increase in the prominence of the mediastinum. At any rate a CT scan of the chest will be obtained this morning to make sure there is no increase in size. Coagulation studies will also be ordered obtained this morning. Patient's vital signs has been stable and nurses were informed to check her vital signs every 2 hours. She will be started on IV antibiotics. I called her mother on the phone Issac Noonan and explained to her the situation. Told her that the patient will get a CT scan of the chest this morning. She was the one who gave the consent for the procedure on her daughter.
[2020-05-22] MEDS: INSULIN REG, HUMAN 100 UNIT/ML 3 ML VIAL (PYX) SUBCUT SCH ×4 (00:31→18:17)
[2020-05-22] MEDS: CEFEPIME HCL 2 GM in DEXTROSE 5%-WATER 50 ML IV SCH ×4 (00:32→22:32)
[2020-05-22] MEDS: ACYCLOVIR SODIUM 700 MG in NORMAL SALINE 100 ML IV SCH ×3 (01:38→15:38)
[2020-05-22] MEDS ORDERED: LORAZEPAM INJ 2 MG/1 ML VIAL IV ONE ×2 (02:15→16:15)
[2020-05-22] MEDS: VANCOMYCIN HCL 1,500 MG in DEXTROSE 5%-WATER 250 ML IV SCH ×3 (02:41→18:08)
[2020-05-22] MEDS: LORAZEPAM INJ 2 MG/1 ML VIAL IV PRN ×6 (03:10→22:07)
[2020-05-22] MEDS: HALOPERIDOL LACTATE INJ 5 MG/1 ML VIAL IV PRN ×3 (04:23→17:23)
[2020-05-22 07:00] LABS: ABSOLUTE LYMPHOCYTES (AUTO) 1.4 10^3/uL (0.5-4.7); ABSOLUTE MONOCYTES (AUTO) 0.7 10^3/uL (0.1-1.4); BASOPHILS % (AUTO) 0.3 % (0-2); EOSINOPHILS % (AUTO) 0.2 % (0-6); HEMATOCRIT 28.6 % (36.0-47.0); HEMOGLOBIN 9.9 g/dL (12.0-15.5); LYMPHOCYTES % (AUTO) 15.8 % (13-45); MEAN CORPUSCULAR HGB CONC 34.7 g/dL (32.0-36.0); MEAN CORPUSCULAR VOLUME 86 fl (80-97); MONOCYTES % (AUTO) 7.2 % (3-13); PLATELET COUNT 218 10^3/uL (150-450); RED BLOOD COUNT 3.31 10^6/uL (3.72-5.28); RED CELL DISTRIBUTION WIDTH 13.9 % (11.5-14.0); SEGMENTED NEUTROPHILS % (AUTO) 76.5 % (42-78); TOTAL CELLS COUNTED % (AUTO) 100 %; WHITE BLOOD COUNT 9.2 10^3/uL (4.0-10.5)
[2020-05-22 07:11] LABS: INTERNATIONAL RATION (INR) 1.28; PROTHROMBIN TIME 16.2 SEC (11.4-15.4)
[2020-05-22 07:12] LABS: PARTIAL THROMBOPLASTIN TIME 32.9 SEC (23.5-35.8)
[2020-05-22 07:17] LABS: ANION GAP 11 (5-19); BLOOD UREA NITROGEN 22 mg/dL (7-20); CALCIUM 8.7 mg/dL (8.4-10.2); CARBON DIOXIDE 24 mmol/L (22-30); CHLORIDE 114 mmol/L (98-107); GLUCOSE 264 mg/dL (75-110); POTASSIUM 3.2 mmol/L (3.6-5.0)
[2020-05-22] MEDS ORDERED: NORMAL SALINE 250 ML IV PRN ×2 (08:04)
[2020-05-22] MEDS: POTASSI CL 20 MEQ/50 ML RIDER 20 MEQ/50 ML RTUPB IV SCH ×2 (08:56→11:31)
[2020-05-22] MEDS: DOCUSATE SODIUM 100 MG CAPSULE PO SCH (09:46)
[2020-05-22] MEDS: ENOXAPARIN SODIUM INJ 40 MG/0.4 ML DISP.SYRIN SUBCUT SCH (09:49)
--- NOTE | 2020-05-22 09:54 | RADIOLOGY REPORT (SQ) ---
EXAM DESCRIPTION: CHEST SINGLE VIEW IMAGES COMPLETED DATE/TIME: 05/22/2020 8:21 am REASON FOR STUDY: Follow-up for central line COMPARISON: 05/19/2020, 05/21/2020 EXAM PARAMETERS: NUMBER OF VIEWS: One view. TECHNIQUE: Single frontal radiographic view of the chest acquired. RADIATION DOSE: NA LIMITATIONS: Patient rotation. FINDINGS: LUNGS AND PLEURA: Stable pulmonary exam demonstrating a rounded right upper lobe nodular d ensity. No pneumothorax. No pleural effusion. MEDIASTINUM AND HILAR STRUCTURES: The appearance of superior mediastinal widening may be due in part to patient rotation; however, this does appear to be increased relative to pre central line placement imaging. HEART AND VASCULAR STRUCTURES: Heart normal in size. Normal vasculature. BONES: No acute findings. HARDWARE: Right internal jugular access catheter terminates in the region of the right atrium. OTHER: No other significant finding. IMPRESSION: 1. Stable superior mediastinal prominence. No pneumothorax or pleural effusion. 2. Stable right internal jugular vascular access catheter. TECHNICAL DOCUMENTATION: JOB ID: [id number] 2010 [employer]- All Rights Reserved Reading location - IP/workstation name: [email or web address]
[2020-05-22] MEDS ORDERED: INSULIN GLARGINE,HUM.REC.ANLOG 1,000 UNIT/10 ML VIAL SUBCUT SCH ×2 (10:00)
--- NOTE | 2020-05-22 10:27 | PDOC PROGRESS REPORT ---
Subjective Progress Note for:: 05/22/20 Reason For Visit: ACUTE METABOLIC ENCEPHALOPATHY Patient remained hemodynamically stable overnight. Still in a nonresponsive state, only to painful stimulation. No verbalization. Patient receiving potassium replacement. Mother at bedside. Mother states patient has a long history of heroin use; patient noted to have a fragment of needle in her right antecubital fossa for years. Physical Exam Vital Signs: Temp Pulse Resp BP Pulse Ox 98.4 F 101 H 20 119/67 96 05/22/20 08:14 05/22/20 08:30 05/22/20 08:14 05/22/20 08:30 05/22/20 08:14 Intake & Output 05/21/20 05/22/20 05/23/20 06:59 06:59 06:59 Intake Total 3707 301 Balance 3707 301 Weight 65.5 kg 65.6 kg General appearance: PRESENT: other - Patient disheveled, with mitts and restraints on, head down, tucked into side of pillow. Not responsive to verbal stimulation; misses and withdraws due to painful stimulation Extremities exam: PRESENT: other - Scars bilateral upper extremities including antecubital fossa; no evidence of cellulitis. Results Laboratory Results: 05/22/20 06:36 05/22/20 06:36 05/21/20 05/21/20 05/22/20 13:30 21:35 06:36 WBC 9.2 RBC 3.31 L Hgb 9.9 L Hct 28.6 L MCV 86 MCH 30.0 MCHC 34.7 RDW 13.9 Plt Count 218 Seg Neutrophils % 76.5 Sodium 144.7 144.6 Potassium 3.3 L 3.4 L Chloride 112 H 110 H Carbon Dioxide 20 L 20 L Anion Gap 13 15 BUN 26 H 26 H Creatinine 0.49 L 0.58 Est GFR ( Amer) > 60 > 60 Glucose 221 H 289 H Calcium 8.9 8.9 05/22/20 06:36 WBC RBC Hgb Hct MCV MCH MCHC RDW Plt Count Seg Neutrophils % Sodium 149.4 H Potassium 3.2 L Chloride 114 H Carbon Dioxide 24 Anion Gap 11 BUN 22 H Creatinine 0.63 Est GFR ( Amer) > 60 Glucose 264 H Calcium 8.7 05/19/20 11:56 Blood Blood Culture (PCR) - Final Staphylococcus Aureus 05/19/20 11:56 Blood Blood Culture - Final Staphylococcus Aureus 05/19/20 13:25 Blood Blood Culture (PCR) - Final 05/19/20 05/19/20 05/20/20 11:56 20:15 03:12 Troponin I 0.026 0.041 0.046 Impressions: Renal Ultrasound 05/19/20 00:00 IMPRESSION: There is fullness of the right renal pelvis which may represent an extrarenal pelvis or mild hydronephrosis. Abdomen/Pelvis CT 05/19/20 12:06 IMPRESSION: 1. Asymmetrically enlarged, likely edematous, right kidney suggestive of pyelonephritis. Recommend correlation with UA. No hydronephrosis. 2. No evidence of acute intra-abdominal/pelvic process. Normal appendix. 3. Moderate formed stool throughout the colon. Head CT 05/19/20 12:06 IMPRESSION: NO ACUTE INTRACRANIAL IMAGING FINDINGS. EVIDENCE OF ACUTE STROKE: NO. Wrist X-Ray 05/20/20 00:00 IMPRESSION: NEGATIVE STUDY OF THE RIGHT WRIST. NO RADIOGRAPHIC EVIDENCE OF ACUTE INJURY. Chest CT 05/20/20 08:45 IMPRESSION: 2 CM MASS IN THE POSTERIOR RIGHT LOWER LOBE. THIS IS CONCERNING FOR MALIGNANCY. CANNOT EXCLUDE LOCALIZED INFECTION. Forearm X-Ray 05/21/20 00:00 IMPRESSION: 7 mm needle fragment in the antecubital fossa soft tissues Hand X-Ray 05/21/20 00:00 IMPRESSION: No radiopaque foreign body identified Humerus X-Ray 05/21/20 00:00 IMPRESSION: 7 mm needle fragment in the antecubital fossa soft tissues Fluoroscopy 05/21/20 08:00 IMPRESSION: Single fluoro images obtained during unsuccessful right PICC line placement Chest X-Ray 05/22/20 06:00 IMPRESSION: 1. Stable superior mediastinal prominence. No pneumothorax or pleural effusion. 2. Stable right internal jugular vascular access catheter. Assessment & Plan - Diagnosis (1) Foreign body of right upper arm Is this a current diagnosis for this admission?: Yes Plan: Impression: Retained foreign body consistent with 7 mm hypodermic needle; known to be present according to patient's mother for several years. Recommendations made for foreign body removal in order for patient to receive brain MRI scan. Currently in depressed neurologic state, with metabolic abnormalities. Furthermore patient is 12 hours status post right internal jugular vein central line catheter insertion with post procedure x-ray suggesting possible mediastinal widening. No evidence of hemodynamic instability or respiratory compromise Recommendations: 1. I have spoken with the patient's mother at bedside, nurse at bedside, primary care physician on the telephone, and radiologist on the telephone. 2. Patient has multiple procedures and diagnostic studies set up for today; I would suggest these procedures be performed including contrast study through her central line to rule out mediastinal injury. Note I have reviewed images with the radiologist, and our collective suspicion that there is pathology in the chest is extremely low. Additional procedures included lumbar tap, and t ransesophageal echocardiography. 3. Patient has had no brain imaging. Because she cannot undergo MRI time due to presence of foreign body in right antecubital fossa, I have suggested CT scan of the head. Will be ordered in the interim, recognizing it may not be sensitive as MRI in detecting subtle pathology. 4. In the interim we will cancel plans for foreign body removal right arm until the above tasks complete. We will continue to follow patient with you. (2) Hypokalemia Is this a current diagnosis for this admission?: Yes (3) Acute metabolic encephalopathy Is this a current diagnosis for this admission?: Yes (4) Sepsis Qualifiers: Sepsis type: sepsis due to unspecified organism Sepsis acute organ dysfunction status: with acute organ dysfunction Severe sepsis acute organ dysfunction type: encephalopathy Severe sepsis shock status: without septic shock Qualified Code(s): A41.9 - Sepsis, unspecified organism; R65.20 - Severe sepsis without septic shock; G93.40 - Encephalopathy, unspecified (5) Diabetes Qualifiers: Diabetes mellitus type: type 2 Diabetes mellitus 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
--- NOTE | 2020-05-22 10:40 | PDOC CONSULTATION ---
Consultation Consult Date: 05/21/20 Attending physician:: JENNIFER GARCIA Provider Consulted: OFE MILLER Consult reason:: RLL lung mass History of Present Illness Admission Date/PCP: 05/19/20 17:19 History of Present Illness: ИВАН MONTELONGO is a 35 year old female. She was Brought to the ED from by family for altered mental status and weakness., Per mother provides a long history of IV drug use especially heroin historically she has a broken needle in her right antecubital fossa she smoked 1/2 to 2 packs a day the last 17 years has smoked up until the time of admission and has no history of chronic lung disease as a child or adolescent her PPD status is unknown she exposed to passive smoke as a child as well as an adult no pets no recent travel sleeps on 2 pillows no edema history of snoring although obstructive sleep apnea has not been worked up. She also presents at this time therapy right pleural-based lower lobe mass Past Medical History Cardiac Medical History: Reports: None Pulmonary Medical History: Reports: Asthma EENT Medical History: Reports: None Neurological Medical History: Reports: Migraine, Seizures - BLOOD SUGAR GOT TOO LOW Endocrine Medical History: Reports: Diabetes Mellitus Type 1 Malignancy Medical History: Reports: None GI Medical History: Reports: Gastroesophageal Reflux Disease, Ulcerative Colitis Musculoskeltal Medical History: Reports: Fibromyalgia Psychiatric Medical History: Reports: Depression, Tobacco Dependency Traumatic Medical History: Reports: Pneumothorax Hematology: Reports: Anemia Denies: Sickle Cell Disease Infectious Medical History: Reports: Hepatitis C Past Surgical History Past Surgical History: Reports: Section - x1, Tubal Ligation Social History Information Source: Relative Lives with: Family Smoking Status: Current Every Day Smoker Cigarettes Packs Per Day: 2 Number of Years Smokin Passive smoke exposure as: Both Frequency of Alcohol Use: Occasional Hx Recreational Drug Use: Yes Drugs: Heroin Hx Prescription Drug Abuse: Yes Do you have pets?: Yes Have you had any respiratory illnesses as a child?: No Have you been exposed to any sick contacts recently?: No Have you had any recent respiratory illnesses?: No Have you travelled outside of [place] in the past 12 months?: No - Advance Directive Resuscitation Status: Full Code Family History Family History: COPD, DM, Malignancy Parental Family History Reviewed: Yes Children Family History Reviewed: Yes Sibling(s) Family History Reviewed.: Yes Medication/Allergy Home Medications: Buprenorphine HCl 8 mg SL BID 05/19/20 Gabapentin [Neurontin 300 mg Capsule] 300 mg PO Q6 05/19/20 Paroxetine HCl [Paxil 20 mg Tablet] 20 mg PO DAILY 05/19/20 Allergies/Adverse Reactions: infliximab [From Remicade] Allergy (Severe, Verified 05/19/20 12:43) Anaphylaxis clindamycin [Clindamycin] Allergy (Verified 05/19/20 12:43) sulfamethoxazole [From Bactrim] Allergy (Verified 05/19/20 12:43) trimethoprim [From Bactrim] Allergy (Verified 05/19/20 12:43) codeine [Codeine] Adverse Reaction (Mild, Verified 05/19/20 12:43) NSAIDS (Non-Steroidal Anti-Inflamma Adverse Reaction (Verified 05/19/20 12:43) Review of Systems ROS unobtainable: Due to mental status Physical Exam Vital Signs: Temp Pulse Resp BP Pulse Ox 99.1 F 94 18 105/71 100 05/21/20 12:58 05/21/20 14:00 05/21/20 12:58 05/21/20 12:58 05/21/20 12:58 Intake & Output 05/20/20 05/21/20 05/22/20 06:59 06:59 06:59 Intake Total 3103 3707 Balance 3103 3707 Weight 65.5 kg 65.5 kg General appearance: PRESENT: disheveled, mild distress, well-developed, well- nourished. ABSENT: cooperative Head exam: PRESENT: atraumatic, normocephalic Eye exam: PRESENT: conjunctiva pale, EOMI. ABSENT: nystagmus, periorbital swelling, scleral icterus Mouth exam: PRESENT: dry mucosa, neck supple, tongue midline Neck exam: ABSENT: carotid bruit, full ROM, JVD, lymphadenopathy, meningismus, tenderness, thyromegaly, tracheal deviation, tracheostomy, other Respiratory exam: PRESENT: decreased breath sounds, prolonged expiratory phas, rhonchi, symmetrical, unlabored. ABSENT: retraction, stridor, tachypnea Cardiovascular exam: PRESENT: RRR, +S1, +S2 Pulses: PRESENT: normal radial pulses GI/Abdominal exam: PRESENT: soft. ABSENT: firm, guarding, mass, rebound, tenderness Gentrourinary exam: PRESENT: indwelling catheter Extremities exam: PRESENT: full ROM. ABSENT: calf tenderness, clubbing, joint swelling, tenderness Musculoskeletal exam: PRESENT: full ROM. ABSENT: deformity, dislocation Neurological exam: PRESENT: altered. ABSENT: oriented to place, oriented to time, oriented to situation, motor sensory deficit Psychiatric exam: PRESENT: agitated Focused psych exam: PRESENT: psychomotor agitation Skin exam: PRESENT: dry, warm Results Laboratory Results: 05/21/20 05:04 05/21/20 13:30 05/20/20 05/21/20 05/21/20 15:30 05:04 05:04 WBC 13.3 H RBC 3.65 L Hgb 10.9 L Hct 31.5 L MCV 86 MCH 29.8 MCHC 34.4 RDW 13.6 Plt Count 203 Seg Neutrophils % 87.4 H Sodium 142.9 Potassium 3.3 L Chloride 111 H Carbon Dioxide 20 L Anion Gap 12 BUN 22 H Creatinine 0.48 L 0.53 Est GFR ( Amer) > 60 > 60 Glucose 179 H Calcium 8.9 05/21/20 05/21/20 05:04 13:30 WBC RBC Hgb Hct MCV MCH MCHC RDW Plt Count Seg Neutrophils % Sodium 142.0 144.7 Potassium 3.6 3.3 L Chloride 110 H 112 H Carbon Dioxide 18 L 20 L Anion Gap 14 13 BUN 25 H 26 H Creatinine 0.52 0.49 L Est GFR ( Amer) > 60 > 60 Glucose 275 H 221 H Calcium 8.8 8.9 05/19/20 11:56 Blood Blood Culture (PCR) - Final Staphylococcus Aureus 05/19/20 11:56 Blood Blood Culture - Final Staphylococcus Aureus 05/19/20 13:25 Blood Blood Culture (PCR) - Final 05/19/20 05/19/20 05/20/20 11:56 20:15 03:12 Troponin I 0.026 0.041 0.046 Impressions: Renal Ultrasound 05/19/20 00:00 IMPRESSION: There is fullness of the right renal pelvis which may represent an extrarenal pelvis or mild hydronephrosis. Chest X-Ray 05/19/20 11:57 IMPRESSION: Subtle ovoid ground-glass opacity of the right mid lung possibly infectious/ inflammatory. Of note, radiographs have limits sensitivity for ground-glass nodules. No dense consolidation. No Significant effusion. Abdomen/Pelvis CT 05/19/20 12:06 IMPRESSION: 1. Asymmetrically enlarged, likely edematous, right kidney suggest danay of pyelonephritis. Recommend correlation with UA. No hydronephrosis. 2. No evidence of acute intra-abdominal/pelvic process. Normal appendix. 3. Moderate formed stool throughout the colon. Head CT 05/19/20 12:06 IMPRESSION: NO ACUTE INTRACRANIAL IMAGING FINDINGS. EVIDENCE OF ACUTE STROKE: NO. Wrist X-Ray 05/20/20 00:00 IMPRESSION: NEGATIVE STUDY OF THE RIGHT WRIST. NO RADIOGRAPHIC EVIDENCE OF ACUTE INJURY. Chest CT 05/20/20 08:45 IMPRESSION: 2 CM MASS IN THE POSTERIOR RIGHT LOWER LOBE. THIS IS CONCERNING FOR MALIGNANCY. CANNOT EXCLUDE LOCALIZED INFECTION. Assessment & Plan - Diagnosis (1) Acute metabolic encephalopathy Is this a current diagnosis for this admission?: Yes Plan: Cephalopathy could also be due to infectious component strongly suggest getting LP (2) Diabetic keto-acidosis Qualifiers: Diabetes mellitus type: type 1 Diabetes mellitus complication detail: without coma Qualified Code(s): E10.10 - Type 1 diabetes mellitus with ketoacidosis without coma Is this a current diagnosis for this admission?: Yes Plan: Was in a very near DKA at the time of presentation it seems his dizziness improved (3) Fever Qualifiers: Fever type: unspecified Qualified Code(s): R50.9 - Fever, unspecified Is this a current diagnosis for this admission?: Yes Plan: Persistent secondary to infection presentation white count cell count was 23,000 currently is 9,000+ cultures thus far (4) Foreign body of right upper arm Is this a current diagnosis for this admission?: Yes Plan: As per surgery (5) Mass of lower lobe of right lung Is this a current diagnosis for this admission?: Yes Plan: Pleural-based mass right lower lobe posteriorly 1 rounded this may simply be part of the sequela I sequela I of her current infection. However, it may be a pulmonary mass at this time it would be reasonable to have sepsis and infection completely controlled and reevaluate the mass of his decrease in size we will continue to follow if it remains CT-guided needle biopsy would probably be best as it is adjacent to the pleura. (6) Sepsis Qualifiers: Sepsis type: sepsis due to unspecified organism Sepsis acute organ dysfunction status: with acute organ dysfunction Severe sepsis acute organ dysfunction type: encephalopathy Severe sepsis shock status: without septic shock Qualified Code(s): A41.9 - Sepsis, unspecified organism; R65.20 - Severe sepsis without septic shock; G93.40 - Encephalopathy, unspecified Is this a current diagnosis for this admission?: Yes Plan: At this time patient does not require vasoactive intervention. Significant decrease in white count. No positive cultures. Continue empiric antibiotics - Time Time Spent with patient: 50 minutes
[2020-05-22] MEDS: NORMAL SALINE 1000 ML 1,000 ML IV PRN (11:46)
--- NOTE | 2020-05-22 12:10 | RADIOLOGY REPORT (SQ) ---
EXAM DESCRIPTION: CT CHEST WITHOUT IMAGES COMPLETED DATE/TIME: 05/22/2020 11:07 am REASON FOR STUDY: rt paratracheal prominence, ? new mediastinal hemorrhage from central line COMPARISON: Chest radiographs, CT, and fluoroscopic evaluation performed between 05/20/2020 and 2019 TECHNIQUE: CT scan performed of the chest without intravenous contrast. Images reviewed with lung, soft tissue and bone windows. Reconstructed coronal and sagittal MPR images reviewed. All images st ored on PACS. All CT scanners at this facility use dose modulation, iterative reconstruction, and/or weight based d osing when appropriate to reduce radiation dose to as low as reasonably achievable (ALARA). [facility]: Dose Right [facility]: CareDose [facility]: Dose Right [facility]: Teradose 4D [facility]: [employer] RADIATION DOSE: CT Rad equipment meets quality standard of care and radiation dose reduction techniq ues were employed. CTDIvol: 4.7 mGy. DLP: 210 mGy-cm. mGy. LIMITATIONS: No technical limitations. FINDINGS: LUNGS AND PLEURA: Short interval stability of a previously characterized 2 cm mass within the right lower lobe. No new focal consolidation, pleural effusion, or pneumothorax. HILAR AND MEDIASTINAL STRUCTURES: Ill-defined soft tissue attenuation is seen at the superior mediast inum to the right of the trachea from the level of the cervicothoracic inlet to the posterior mediast inum to the right of the esophagus. The attenuation of this collection appears homogeneous without d iscrete contrast collection related to fluoroscopic evaluation performed immediately prior to this ex amination. HEART AND VASCULAR STRUCTURES: No aneurysm. No pericardial effusion. UPPER ABDOMEN: No significant findings. Limited exam. THYROID AND OTHER SOFT TISSUES: No masses. No adenopathy. BONES: No significant finding. HARDWARE: Right central line terminates within the right atrium. OTHER: No other significant findings. IMPRESSION: Right central line terminates within the right atrium. Mediastinal widening demonstrate d on comparison radiographs correlates to a homogeneous collection favored to be on the basis of a he matoma. No demonstrated contrast collection after fluoroscopic evaluation of line patency and positi on. TECHNICAL DOCUMENTATION: JOB ID: [id number] Quality ID # [id number]: Final reports with documentation of one or more dose reduction techniques (e.g., Au tomated exposure control, adjustment of the mA and/or kV according to patient size, use of iterative reconstruction technique) 2010 [facility] [employer] [employer] All Rights Reserved Reading location - IP/workstation name: [email or web address]
--- NOTE | 2020-05-22 13:24 | RADIOLOGY REPORT (SQ) ---
EXAM DESCRIPTION: NOT FOR OR FLUORO TO 1 HR IMAGES COMPLETED DATE/TIME: 05/22/2020 10:41 am REASON FOR STUDY: CHECK CENTRAL LINE PATENCY COMPARISON: None. FLUOROSCOPY TIME: 31 seconds 3 images saved to PACS. LIMITATIONS: None. PROCEDURE: Approximately 20 mL of Omnipaque 300 was instilled through the proximal port of triple tyler men central catheter. Contrast flows freely without evidence for extravasation. IMPRESSION: FLUOROSCOPIC EVALUATION OF INDWELLING CENTRAL CATHETER, WITHOUT EVIDENCE FOR COMPLICATIO N OR EXTRAVASATION. COMMENT: Findings were discussed with the evaluating surgeon, , upon completion examinati on. Quality ID 145: Final reports for procedures using fluoroscopy that document radiation exposure mikayla charisma, or exposure time and number of fluorographic images (if radiation exposure indices are not avail able) TECHNICAL DOCUMENTATION: JOB ID: [id number] 2010 [employer]- All Rights Reserved Reading location - IP/workstation name: [email or web address]
[2020-05-22] MEDS ORDERED: PHARMACY COMMUNICATION ORDER MC NR (13:30)
--- NOTE | 2020-05-22 15:03 | PDOC PROGRESS REPORT ---
Subjective Subjective:: ИВАН MONTELONGO is a 35 year old female with past medical history significant for IV drug abuse, diabetes, ulcerative colitis, chronic pain who presents to the ED via EMS after her parents called 911 due to the patient having confusion and combativeness. Patient was brought to ED and started on IV fluids. CT of abdomen/pelvis showed enlarged edematous right kidney possible pyelonephritis although UA was not consistent with infection. No hydronephrosis. UA did show massive amount of glucose as well as ketones. Patient has multiple small wounds on her upper extremities consistent with possible injection sites and small areas of potential cellulitis. Reportedly, patient has been off IV drugs which is not consistent with physical exam findings. History cannot be obtained by the patient as she is confused and I have tried many times to contact her family via the phone numbers in the chart and they do not answer the phone or return my calls. History obtained solely from the chart and ED personnel. Head CT showed no acute findings. Chest x-ray showed a subtle ovoid groundglass opacity in the right middle lung infectious or inflammatory. CT chest was not obtained in ED and I have ordered a CT chest to evaluate this possible lung infarction or lung abscess which could have been implanted from IV drug abuse. IV fluids started. Patient became confused and combative and pulled out her IV and she was put in restraints. She is oriented only to herself on admission. Labs are remarkable for a gap acidosis and a blood sugar of 417. She was not yet started on insulin drip. I requested that the ED start this promptly during my initial discussion with attending physician. Patient's troponin is mildly elevated and this is trending. Suspect infected endocarditis as a source of patient's DKA. Echocardiogram ordered. Vancomycin and cefepime started. Blood cultures pending. 05/20/2020 Patient still confused and combative at times. IV Ativan as needed being given intermittently. Per nursing, patient twisted her arm and then was complaining of it hurting. We will get an x-ray to look at her right wrist. Fever has resolved, troponin flat, lipase normal, ammonia negative. A1c is 10. Low phosphorus and elevated lactic acid. Blood cultures growing staph aureus in both bottles. Covid testing is pending. Blood sugar is dropped to an acceptable level. CT chest shows a suspicious mass and I will discuss getting a biopsy with her family. I suspect may be an abscess rather than malignancy but radiologist report states it is very suspicious for malignancy. I have also ordered a lumbar puncture with appropriate labs. Echocardiogram has been done but not read yet. Clinical picture seems consistent with infectious endocarditis with sepsis. 05/21/2020 Patient's mentation has not improved in any meaningful way. She continues to answer almost all questions with her birthdate. White blood cell count is trending down, blood sugar is now in the mid 200s and we have restarted subcutaneous insulin. Blood cultures are now growing MSSA in both bottles and patient is continued on broad-spectrum antibiotics for now. Echocardiogram showed normal cardiac function with mild pulmonary hypertension and no vegetations. Lumbar puncture has been delayed due to INR being approximately 1.6 and the radiologist would like it at 1.5 or below. Patient was given vitamin K today and recheck of INR is actually higher. Patient has no signs of bleeding. PICC line will be placed today. MRI brain ordered however according to patient's mother she has a broken needle in her right arm. I have consulted general surgery to remove this broken needle given that per the x-rays it seems to be rather superficial. We will wait to see what they think about removing it. Antibiotics continue. BABAK ordered. Right wrist x-ray did not show any fractures. Patient remains in restraints for her own safety. Covid is negative. She should be moved to a general IMCU bed as soon as possible. 05/22/2020 Patient's mentation does not seem to be any improved today. She is still requiring restraints to protect her lines. We will drop an NG tube today and start tube feeds that she has had no nutrition for the past 2 days. Central line was put in yesterday by general surgery and due to patient agitation and movement, seems to have a small mediastinal hemorrhage according to general surg sherman whom I spoke with today. They recommended holding on any procedures today and having these done tomorrow instead. I also recommended stopping all blood thinners for the time being. We will get a dry CT head in the meantime. General surgery is also unable to remove the broken needle in the patient's right arm in order to get her an MRI due to anesthesia concerns about electrolytes given that the patient has a potassium of 3.2. I discussed with them the notion of correcting the electrolytes and readdressing, but since we have learned about the CVL complication, we will hold off on all procedures until tomorrow. LP and BAABK will also be delayed because of this. Antibiotics continue. Now the patient is off of insulin drip, we will switch her fluids to LR given that she is developing hypernatremia. Once she has tube feeding and free water running through an NG tube, we could potentially stop IV fluids altogether. On the right side, INR is lower at 1.28 which would allow any of the above procedures if we were actually able to do them today. I called the patient's mother yesterday and gave her a very detailed extensive update on the many diagnostic tests and treatments we are providing to the patient. We spoke for at least 30 to 45 minutes total. Apparently, Ms. Noonan had her cell phone set to ignore outside phone calls automatically and she states this feature is been turned off so that I can communicate with her when needed. Reason For Visit: ACUTE METABOLIC ENCEPHALOPATHY Physical Exam Vital Signs: Temp Pulse Resp BP Pulse Ox 98.4 F 101 H 20 119/67 96 05/22/20 08:14 05/22/20 08:30 05/22/20 08:14 05/22/20 08:30 05/22/20 08:14 Intake & Output 05/21/20 05/22/20 05/23/20 06:59 06:59 06:59 Intake Total 3707 1301 50 Balance 3707 1301 50 Weight 65.5 kg 65.6 kg Exam: General appearance: PRESENT: No acute distress, disheveled, persistent confusion as before Head exam: PRESENT: atraumatic, normocephalic Eye exam: PRESENT: conjunctiva pink. ABSENT: scleral icterus Mouth exam: PRESENT: Dry Respiratory exam: PRESENT: clear to auscultation brandon. ABSENT: rales, rhonchi, wheezes Cardiovascular exam: PRESENT: RRR. ABSENT: diastolic murmur, rubs, systolic murmur GI/Abdominal exam: PRESENT: normal bowel sounds, soft. ABSENT: distended, guarding, mass, organolmegaly, rebound, tenderness Neurological exam: PRESENT: Not alert or awake, oriented to person only Psychiatric exam: PRESENT: Agitated Skin exam: PRESENT: dry, intact, warm; multiple healing scabbed wounds on upper extremities consistent with IV drug abuse Results Laboratory Results: 05/22/20 06:36 05/22/20 06:36 1105/21/20 05/22/20 13:30 21:35 06:36 WBC 9.2 RBC 3.31 L Hgb 9.9 L Hct 28.6 L MCV 86 MCH 30.0 MCHC 34.7 RDW 13.9 Plt Count 218 Seg Neutrophils % 76.5 Sodium 144.7 144.6 Potassium 3.3 L 3.4 L Chloride 112 H 110 H Carbon Dioxide 20 L 20 L Anion Gap 13 15 BUN 26 H 26 H Creatinine 0.49 L 0.58 Est GFR ( Amer) > 60 > 60 Glucose 221 H 289 H Calcium 8.9 8.9 Blood Type 05/22/20 05/22/20 06:36 13:16 WBC RBC Hgb Hct MCV MCH MCHC RDW Plt Count Seg Neutrophils % Sodium 149.4 H Potassium 3.2 L Chloride 114 H Carbon Dioxide 24 Anion Gap 11 BUN 22 H Creatinine 0.63 Est GFR ( Amer) > 60 Glucose 264 H Calcium 8.7 Blood Type O POSITIVE 05/19/20 05/19/20 05/20/20 11:56 20:15 03:12 Troponin I 0.026 0.041 0.046 Impressions: Renal Ultrasound 05/19/20 00:00 IMPRESSION: There is fullness of the right renal pelvis which may represent an extrarenal pelvis or mild hydronephrosis. Abdomen/Pelvis CT 05/19/20 12:06 IMPRESSION: 1. Asymmetrically enlarged, likely edematous, right kidney suggestive of pyelonephritis. Recommend correlation with UA. No hydronephrosis. 2. No evidence of acute intra-abdominal/pelvic process. Normal appendix. 3. Moderate formed stool throughout the colon. Head CT 05/19/20 12:06 IMPRESSION: NO ACUTE INTRACRANIAL IMAGING FINDINGS. EVIDENCE OF ACUTE STROKE: NO. Wrist X-Ray 05/20/20 00:00 IMPRESSION: NEGATIVE STUDY OF THE RIGHT WRIST. NO RADIOGRAPHIC EVIDENCE OF ACUTE INJURY. Forearm X-Ray 05/21/20 00:00 IMPRESSION: 7 mm needle fragment in the antecubital fossa soft tissues Hand X-Ray 05/21/20 00:00 IMPRESSION: No radiopaque foreign body identified Humerus X-Ray 05/21/20 00:00 IMPRESSION: 7 mm needle fragment in the antecubital fossa soft tissues Chest CT 05/22/20 00:00 IMPRESSION: Right central line terminates within the right atrium. Mediastinal widening demonstrated on comparison radiographs correlates to a homogeneous collection favored to be on the basis of a hematoma. No demonstrated contrast collection after fluoroscopic evaluation of line patency and position. Fluoroscopy 05/22/20 00:00 IMPRESSION: FLUOROSCOPIC EVALUATION OF INDWELLING CENTRAL CATHETER, WITHOUT EVIDENCE FOR COMPLICATION OR EXTRAVASATION. Chest X-Ray 05/22/20 06:00 IMPRESSION: 1. Stable superior mediastinal prominence. No pneumothorax or pleural effusion. 2. Stable right internal jugular vascular access catheter. Assessment and Plan - Diagnosis (1) Sepsis Qualifiers: Sepsis type: sepsis due to unspecified organism Sepsis acute organ dysfunction status: with acute organ dysfunction Severe sepsis acute organ dysfunction type: encephalopathy Severe sepsis shock status: without septic shock Qualified Code(s): A41.9 - Sepsis, unspecified organism; R65.20 - Severe sepsis without septic shock; G93.40 - Encephalopathy, unspecified Is this a current diagnosis for this admission?: Yes (2) Diabetic keto-acidosis Qualifiers: Diabetes mellitus type: type 1 Diabetes mellitus complication detail: witho ut coma Qualified Code(s): E10.10 - Type 1 diabetes mellitus with ketoacidosis without coma Is this a current diagnosis for this admission?: Yes (3) Acute metabolic encephalopathy Is this a current diagnosis for this admission?: Yes (4) High anion gap metabolic acidosis Is this a current diagnosis for this admission?: Yes (5) Enlarged kidney Is this a current diagnosis for this admission?: Yes (6) Heroin abuse Is this a current diagnosis for this admission?: Yes (7) Ulcerative colitis without complications Qualifiers: Ulcerative colitis location: unspecified ulcerative colitis location Qualified Code(s): K51.90 - Ulcerative colitis, unspecified, without complications Is this a current diagnosis for this admission?: Yes (8) Mass of lower lobe of right lung Is this a current diagnosis for this admission?: Yes (9) Injury due to hypodermic needle Is this a current diagnosis for this admission?: Yes (10) Foreign body of right upper arm Is this a current diagnosis for this admission?: Yes Plan: 05/22/2020 General surgery consulted: Planning to hold off on needle removal for now due to CVL complication Per general surgery: "Cancel plans for foreign body removal right arm until the above tasks complete. We will continue to follow patient with you." (11) Hypokalemia Is this a current diagnosis for this admission?: Yes (12) Central line complication Qualifiers: Encounter type: initial encounter Qualified Code(s): T82.9XXA - Unspecified complication of cardiac and vascular prosthetic device, implant and graft, initial encounter Is this a current diagnosis for this admission?: Yes Plan: Possibly due to patient agitation, small mediastinal hemorrhage noted on CT scan Discussed with nursing we can use additional sedating medications whenever needed to maintain a controlled environment if the patient has procedures planned - Plan Summary Summary: (1) Sepsis Qualifiers: Sepsis type: sepsis due to unspecified organism Sepsis acute organ dysfun ction status: with acute organ dysfunction Severe sepsis acute organ dysf unction type: encephalopathy Severe sepsis shock status: without septic shock Qualified Code(s): A41.9 - Sepsis, unspecified organism; R65.20 - Severe sepsis without septic shock; G93.40 - Encephalopathy, unspecified Is this a current diagnosis for this admission?: Yes Plan: Unclear etiology: Suspect bacteremia from infective endocarditis versus lung abscess versus meningitis/encephalitis Chest CT with contrast showed 2 cm mass in posterior right lobe concerning for malignancy Abdomen/pelvis CT showed enlarged right kidney possible pyelonephritis although UA is not infected Possible bacteremia from multiple scabbed skin wounds consistent with IV drug abuse Vancomycin/cefepime Blood cultures growing staph aureus 2/2 bottles Chest x-ray showed right middle lobe opacity of unclear etiology Echocardiogram showed normal cardiac function, negative for vegetations, mild pulmonary hypertension BABAK and lumbar puncture delayed due to elevated INR and small mediastinal hemorrhage from CVL Right arm foreign body removal of needle also delayed (2) Diabetic keto-acidosis Qualifiers: Diabetes mellitus type: type 1 Diabetes mellitus complication detail: without coma Qualified Code(s): E10.10 - Type 1 diabetes mellitus with ketoacidosis without coma Is this a current diagnosis for this admission?: Yes Plan: Likely precipitated by sepsis, treatment as above Insulin drip started, transition to subcutaneous Lantus and sliding scale insulin IV fluids, LR initially then changed to D5 normal saline with 20 of potassium once blood sugar is below 250 mg/dL Trend BMP Needs follow-up with endocrinology outpatient ABG unable to be done due to multiple blood draw problems (3) Acute metabolic encephalopathy Is this a current diagnosis for this admission?: Yes Plan: Due to sepsis and DKA Treatment as above CT head with no acute findings (4) High anion gap metabolic acidosis Is this a current diagnosis for this admission?: Yes Plan: Treat DKA and sepsis Trend BMP (5) Enlarged kidney Is this a current diagnosis for this admission?: Yes Plan: Unclear etiology Renal ultrasound showed possible mild hydronephrosis versus extrarenal pelvis (6) Heroin abuse Is this a current diagnosis for this admission?: Yes Plan: UDS negative but multiple skin wounds consistent with drug abuse (7) Ulcerative colitis without complications Qualifiers: Ulcerative colitis location: unspecified ulcerative colitis location Qualified Code(s): K51.90 - Ulcerative colitis, unspecified, without complications Is this a current diagnosis for this admission?: Yes Plan: Unclear if patient is on any treatment for this (8) Mass of lower lobe of right lung Is this a current diagnosis for this admission?: Yes Needs biopsy Consulted pulmonology for their opinion on approach for biopsy (9) Injury due to hypodermic needle Is this a current diagnosis for this admission?: Yes Plan: Previous broken needle implanted in the right forearm near elbow/humerus General surgery consulted for removal (10) Foreign body of right upper arm Is this a current diagnosis for this admission?: Yes Plan: 05/22/2020 General surgery consulted: Planning to hold off on needle removal for now due to CVL complication Per general surgery: "Cancel plans for foreign body removal right arm until the above tasks complete. We will continue to follow patient with you." (11) Hypokalemia Is this a current diagnosis for this admission?: Yes (12) Central line complication Qualifiers: Encounter type: initial encounter Qualified Code(s): T82.9XXA - Unspecified complication of cardiac and vascular prosthetic device, implant and graft, ini tial encounter Is this a current diagnosis for this admission?: Yes Plan: Possibly due to patient agitation, small mediastinal hemorrhage noted on CT scan Discussed with nursing we can use additional sedating medications whenever needed to maintain a controlled environment if the patient has procedures planned - Time Time Spent with patient: 35 or more minutes Medications reviewed and adjusted accordingly: Yes Anticipated Discharge Disposition: Tertiary Anticipated Discharge Timeframe: within 72 hours - Inpatient Certification Based on my medical assessment, after consideration of the patient's comorbidities, presenting symptoms, or acuity I expect that the services needed warrant INPATIENT care.: Yes I certify that my determination is in accordance with my understanding of Medicare's requirements for reasonable and necessary INPATIENT services [42 CFR 412.3e].: Yes Medical Necessity: Significant Comorbidiites Make Outpatient Treatment Too Risky, Need Close Monitoring Due to Risk of Patient Decompensation, Need For IV Fluids, Need for IV Antibiotics, Risk of Complication if Not Cared For in Hospital, Risk of Diagnosis Which Will Require Inpatient Eval/Care/Monitoring
--- NOTE | 2020-05-22 17:55 | RADIOLOGY REPORT (SQ) ---
EXAM DESCRIPTION: KUB/ABDOMEN (SINGLE VIEW) IMAGES COMPLETED DATE/TIME: 05/22/2020 5:46 pm REASON FOR STUDY: NG tube COMPARISON: None. NUMBER OF VIEWS: One view. TECHNIQUE: Supine radiographic image of the abdomen acquired. LIMITATIONS: None. FINDINGS: BOWEL GAS PATTERN: Nonobstructive gas pattern. Retained stool. CALCIFICATIONS: No suspicious calcifications. SOFT TISSUES: No gross mass or suggestion of organomegaly. HARDWARE: An NG tube extends toward the gastric antrum. BONES: No acute fracture. No worrisome bone lesions. OTHER: No other significant finding. IMPRESSION: NG tube as described. Constipation. TECHNICAL DOCUMENTATION: JOB ID: [id number] 2010 [employer]- All Rights Reserved Reading location - IP/workstation name: [email or web address]
[2020-05-22] MEDS: THIAMINE HCL 100 MG in NORMAL SALINE 50 ML IV SCH (21:53)
[2020-05-23] MEDS: ACYCLOVIR SODIUM 700 MG in NORMAL SALINE 100 ML IV SCH ×2 (00:13→06:21)
[2020-05-23] MEDS: LORAZEPAM INJ 2 MG/1 ML VIAL IV PRN ×9 (00:13→23:02)
[2020-05-23] MEDS: INSULIN REG, HUMAN 100 UNIT/ML 3 ML VIAL (PYX) SUBCUT SCH ×4 (00:29→19:41)
[2020-05-23] MEDS: VANCOMYCIN HCL 1,500 MG in DEXTROSE 5%-WATER 250 ML IV SCH ×2 (01:25→19:00)
[2020-05-23] MEDS: HALOPERIDOL LACTATE INJ 5 MG/1 ML VIAL IV PRN ×2 (01:25→17:50)
[2020-05-23] MEDS: NORMAL SALINE 1000 ML 1,000 ML IV PRN ×2 (01:26→10:06)
--- NOTE | 2020-05-23 08:57 | RADIOLOGY REPORT (SQ) ---
EXAM DESCRIPTION: CT HEAD WITHOUT IMAGES COMPLETED DATE/TIME: 05/23/2020 7:08 am REASON FOR STUDY: AMS, encephalitis, bacteremia COMPARISON: 05/19/2020 TECHNIQUE: Axial images acquired through the brain without intravenous contrast. Images reviewed wi th bone, brain and subdural windows. Additional sagittal and coronal reconstructions were generated. Images stored on PACS. All CT scanners at this facility use dose modulation, iterative reconstruction, and/or weight based d osing when appropriate to reduce radiation dose to as low as reasonably achievable (ALARA). [facility]: Dose Right [facility]: CareDose [facility]: Dose Right [facility]: Teradose 4D [facility]: [place] RADIATION DOSE: CT Rad equipment meets quality standard of care and radiation dose reduction techniq ues were employed. CTDIvol: 49.0 - 50.3 mGy. DLP: 3325 mGy-cm. mGy. LIMITATIONS: Very limited study secondary to patient motion. FINDINGS: VENTRICLES: Normal size and contour. CEREBRUM: No masses. No hemorrhage. No midline shift. No evidence for acute infarction. Subtle air decreased attenuation the right posterior parietal lobe and posterior frontal lobe. This could be a rtifactual. There is streak artifact from the technicians hand who was holding the patient's head in place. CEREBELLUM: No masses. No hemorrhage. No alteration of density. No evidence for acute infarction. EXTRAAXIAL SPACES: No fluid collections. No masses. ORBITS AND GLOBE: No intra- or extraconal masses. Normal contour of globe without masses. CALVARIUM: No fracture. PARANASAL SINUSES: No fluid or mucosal thickening. SOFT TISSUES: No mass or hematoma. OTHER: No other significant finding. IMPRESSION: Very limited study. No bleed or mass. Subtle decreased attenuation in the right educational psychology professor ior frontal and parietal lobe cannot be excluded as discussed above. EVIDENCE OF ACUTE STROKE: NO. COMMENT: Quality ID # [id number]: Final reports with documentation of one or more dose reduction techniques (e.g., Automated exposure control, adjustment of the mA and/or kV according to patient size, use of iterative reconstruction technique) TECHNICAL DOCUMENTATION: JOB ID: [id number] 2010 [employer]- All Rights Reserved Reading location - IP/workstation name: [email or web address]
[2020-05-23] MEDS ORDERED: BISACODYL 10 MG SUPP.RECT PR ONE (09:00)
--- NOTE | 2020-05-23 09:18 | RADIOLOGY REPORT (SQ) ---
EXAM DESCRIPTION: CHEST SINGLE VIEW IMAGES COMPLETED DATE/TIME: 05/23/2020 9:05 am REASON FOR STUDY: Interval change in mediastinum COMPARISON: 05/22/2020 EXAM PARAMETERS: NUMBER OF VIEWS: One view. TECHNIQUE: Single frontal radiographic view of the chest acquired. RADIATION DOSE: NA LIMITATIONS: None. FINDINGS: LUNGS AND PLEURA: No opacities, masses or pneumothorax. No pleural effusion. MEDIASTINUM AND HILAR STRUCTURES: Persistent fullness in the upper right mediastinum. No change from yesterday. HEART AND VASCULAR STRUCTURES: Heart normal in size. Normal vasculature. BONES: No acute findings. HARDWARE: NG tube is in place. Tip is well below the GE junction. OTHER: No other significant finding. IMPRESSION: NG tube placement. No other interval change in the chest. Upper mediastinal fullness i s unchanged. TECHNICAL DOCUMENTATION: JOB ID: [id number] 2010 [employer]- All Rights Reserved Reading location - IP/workstation name: [email or web address]
[2020-05-23] MEDS ORDERED: PHARMACY COMMUNICATION ORDER MC ONE (09:30)
[2020-05-23] MEDS ORDERED: INSULIN GLARGINE,HUM.REC.ANLOG 1,000 UNIT/10 ML VIAL SUBCUT SCH (10:00)
--- NOTE | 2020-05-23 10:25 | PDOC PROGRESS REPORT ---
Subjective Progress Note for:: 05/23/20 Subjective:: Still quite unresponsive and agitated at times. Reason For Visit: ACUTE METABOLIC ENCEPHALOPATHY Physical Exam Vital Signs: Temp Pulse Resp BP Pulse Ox 100.0 F 100 24 H 123/65 97 05/23/20 03:56 05/23/20 03:56 05/23/20 03:56 05/23/20 03:56 05/23/20 03:56 Intake & Output 05/22/20 05/23/20 05/24/20 06:59 06:59 06:59 Intake Total 1301 1851 1000 Balance 1301 1851 1000 Weight 65.6 kg 66.5 kg Exam: Patient is unresponsive and when examined is been quite agitated today. Mother at bedside and talk to her about current situation. Told her the x-ray today showed stable upper mediastinal hematoma that is likely due to the initial central line placement. Results Laboratory Results: 05/22/20 06:36 05/22/20 06:36 05/22/20 13:16 Blood Type O POSITIVE 05/19/20 05/19/20 05/20/20 11:56 20:15 03:12 Troponin I 0.026 0.041 0.046 Impressions: Renal Ultrasound 05/19/20 00:00 IMPRESSION: There is fullness of the right renal pelvis which may represent an extrarenal pelvis or mild hydronephrosis. Abdomen/Pelvis CT 05/19/20 12:06 IMPRESSION: 1. Asymmetrically enlarged, likely edematous, right kidney suggestive of pyelonephritis. Recommend correlation with UA. No hydronephrosis. 2. No evidence of acute intra-abdominal/pelvic process. Normal appendix. 3. Moderate formed stool throughout the colon. Wrist X-Ray 05/20/20 00:00 IMPRESSION: NEGATIVE STUDY OF THE RIGHT WRIST. NO RADIOGRAPHIC EVIDENCE OF ACUTE INJURY. Forearm X-Ray 05/21/20 00:00 IMPRESSION: 7 mm needle fragment in the antecubital fossa soft tissues Hand X-Ray 05/21/20 00:00 IMPRESSION: No radiopaque foreign body identified Humerus X-Ray 05/21/20 00:00 IMPRESSION: 7 mm needle fragment in the antecubital fossa soft tissues Chest CT 05/22/20 00:00 IMPRESSION: Right central line terminates within the right atrium. Mediastinal widening demonstrated on comparison radiographs correlates to a homogeneous collection favored to be on the basis of a hematoma. No demonstrated contrast collection after fluoroscopic evaluation of line patency and position. Fluoroscopy 05/22/20 00:00 IMPRESSION: FLUOROSCOPIC EVALUATION OF INDWELLING CENTRAL CATHETER, WITHOUT EVIDENCE FOR COMPLICATION OR EXTRAVASATION. Head CT 05/22/20 00:00 IMPRESSION: Very limited study. No bleed or mass. Subtle decreased attenuation in the right posterior frontal and parietal lobe cannot be excluded as discussed above. EVIDENCE OF ACUTE STROKE: NO. KUB X-Ray 05/22/20 17:12 IMPRESSION: NG tube as described. Constipation. Chest X-Ray 05/23/20 07:00 IMPRESSION: NG tube placement. No other interval change in the chest. Upper mediastinal fullness is unchanged. Assessment & Plan - Diagnosis (1) Acute metabolic encephalopathy Is this a current diagnosis for this admission?: Yes (2) Central line complication Qualifiers: Encounter type: initial encounter Qualified Code(s): T82.9XXA - Unspecified complication of cardiac and vascular prosthetic device, implant and graft, initial encounter Is this a current diagnosis for this admission?: Yes (3) Foreign body of right upper arm Is this a current diagnosis for this admission?: Yes - Time Critical Time spent with patient: 15-24 minutes Anticipated Discharge Disposition: Possible home versus home care Anticipated Discharge Timeframe: 1 to 2 weeks - Inpatient Certification Medical Necessity: Need Close Monitoring Due to Risk of Patient Decompensation, Need For IV Fluids, Need For Continuous Telemetry Monitoring, Need for IV Antibiotics - Plan Summary Plan Summary: 5-year-old female had a central line placed 2 days ago. Patient developed me mediastinal hematoma likely from the central line placement. Chest x-ray today showed the hematoma has been stable. Patient has been stable vital signs boyce and pulse oximeter boyce. The central line is being used right now without any problems. Foreign body in the right forearm or cubital area part has been there for at least a year according to the mom. This can be removed later if patient still requires MRI of the brain. Unfortunately patient is quite agitated at this time that its going to be difficult to remove with in the OR with fluoroscopy if she continues to be quite agitated. Is also going to be risky to do general anesthesia for this relatively minor procedure. We will sign off for now and call for other questions or if she is in a better situation to remove the foreign body and still needs MRI.
[2020-05-23] MEDS ORDERED: RINGERS SOLUTION,LACTATED 1,000 ML IV PRN (11:01)
[2020-05-23 11:18] LABS: ANION GAP 7 (5-19); BLOOD UREA NITROGEN 11 mg/dL (7-20); CALCIUM 8.4 mg/dL (8.4-10.2); CARBON DIOXIDE 28 mmol/L (22-30); CHLORIDE 112 mmol/L (98-107); GLUCOSE 198 mg/dL (75-110)
[2020-05-23 11:27] LABS: VANCOMYCIN,TROUGH 10.7 ug/mL (5.0-20.0)
[2020-05-23 11:30] LABS: POTASSIUM 2.7 mmol/L (3.6-5.0)
[2020-05-23] MEDS ORDERED: LORAZEPAM INJ 2 MG/1 ML VIAL IV ONE (11:30)
[2020-05-23] MEDS: CEFEPIME HCL 2 GM in DEXTROSE 5%-WATER 50 ML IV SCH (12:00)
[2020-05-23] MEDS: DOCUSATE SODIUM 100 MG CAPSULE PO SCH (12:11)
--- NOTE | 2020-05-23 13:46 | Progress Note ---
Provider Note Provider Note: ID Consult Note- I was asked to review the patient's chart and radiology images and to give recommendations. 35 year old female with history of IVDA. She also has a history of Crohn's disease. She was admitted with altered mental status and sepsis. Admission blood cultures positive for MSSA. Patient has not had an LP. She has not had an echocardiogram. CT scan of the chest shows a peripheral lung lesion in the right lung; this is suspicious for a septic pulmonary embolus. Recommendations: 1. Discontinue vancomycin, cefepime, and acyclovir. 2. Begin nafcillin 12 gm IV daily (continuous infusion). If she is penicillin allergic, then give cefazolin 2 gm IV q 8 hours. 3. LP ILDA. 4. TTE to rule out endocarditis. 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 5. Follow up repeat blood cultures. 6. Ultrasound of shoulder joint; if there is an effusion, then do arthrocentesis to rule out septic arthritis. 7. Patient will need at least 4 weeks of IV antibiotics. 8. Monitor for back pain; if she has localized back pain, would do localized MRI to rule out discitis and epidural abscess. Check for any focal neurologic deficits. Naun Knutson MD Pager: [phone]
[2020-05-23] MEDS: POTASSIUM CHLORIDE 20 MEQ/50 ML RTU IV SCH ×4 (13:51→22:06)
[2020-05-23] MEDS ORDERED: NAFCILLIN SODIUM INJ 2 GM VIAL IV SCH (15:15)
--- NOTE | 2020-05-23 15:37 | PDOC PROGRESS REPORT ---
Subjective Subjective:: ИВАН MONTELONGO is a 35 year old female with past medical history significant for IV drug abuse, diabetes, ulcerative colitis, chronic pain who presents to the ED via EMS after her parents called 911 due to the patient having confusion and combativeness. Patient was brought to ED and started on IV fluids. CT of abdomen/pelvis showed enlarged edematous right kidney possible pyelonephritis although UA was not consistent with infection. No hydronephrosis. UA did show massive amount of glucose as well as ketones. Patient has multiple small wounds on her upper extremities consistent with possible injection sites and small areas of potential cellulitis. Reportedly, patient has been off IV drugs which is not consistent with physical exam findings. History cannot be obtained by the patient as she is confused and I have tried many times to contact her family via the phone numbers in the chart and they do not answer the phone or return my calls. History obtained solely from the chart and ED personnel. Head CT showed no acute findings. Chest x-ray showed a subtle ovoid groundglass opacity in the right middle lung infectious or inflammatory. CT chest was not obtained in ED and I have ordered a CT chest to evaluate this possible lung infarction or lung abscess which could have been implanted from IV drug abuse. IV fluids started. Patient became confused and combative and pulled out her IV and she was put in restraints. She is oriented only to herself on admission. Labs are remarkable for a gap acidosis and a blood sugar of 417. She was not yet started on insulin drip. I requested that the ED start this promptly during my initial discussion with attending physician. Patient's troponin is mildly elevated and this is trending. Suspect infected endocarditis as a source of patient's DKA. Echocardiogram ordered. Vancomycin and cefepime started. Blood cultures pending. 05/20/2020 Patient still confused and combative at times. IV Ativan as needed being given intermittently. Per nursing, patient twisted her arm and then was complaining of it hurting. We will get an x-ray to look at her right wrist. Fever has resolved, troponin flat, lipase normal, ammonia negative. A1c is 10. Low phosphorus and elevated lactic acid. Blood cultures growing staph aureus in both bottles. Covid testing is pending. Blood sugar is dropped to an acceptable level. CT chest shows a suspicious mass and I will discuss getting a biopsy with her family. I suspect may be an abscess rather than malignancy but radiologist report states it is very suspicious for malignancy. I have also ordered a lumbar puncture with appropriate labs. Echocardiogram has been done but not read yet. Clinical picture seems consistent with infectious endocarditis with sepsis. 05/21/2020 Patient's mentation has not improved in any meaningful way. She continues to answer almost all questions with her birthdate. White blood cell count is trending down, blood sugar is now in the mid 200s and we have restarted subcutaneous insulin. Blood cultures are now growing MSSA in both bottles and patient is continued on broad-spectrum antibiotics for now. Echocardiogram showed normal cardiac function with mild pulmonary hypertension and no vegetations. Lumbar puncture has been delayed due to INR being approximately 1.6 and the radiologist would like it at 1.5 or below. Patient was given vitamin K today and recheck of INR is actually higher. Patient has no signs of bleeding. PICC line will be placed today. MRI brain ordered however according to patient's mother she has a broken needle in her right arm. I have consulted general surgery to remove this broken needle given that per the x-rays it seems to be rather superficial. We will wait to see what they think about removing it. Antibiotics continue. BABAK ordered. Right wrist x-ray did not show any fractures. Patient remains in restraints for her own safety. Covid is negative. She should be moved to a general IMCU bed as soon as possible. 05/22/2020 Patient's mentation does not seem to be any improved today. She is still requiring restraints to protect her lines. We will drop an NG tube today and start tube feeds that she has had no nutrition for the past 2 days. Central line was put in yesterday by general surgery and due to patient agitation and movement, seems to have a small mediastinal hemorrhage according to general surg sherman whom I spoke with today. They recommended holding on any procedures today and having these done tomorrow instead. I also recommended stopping all blood thinners for the time being. We will get a dry CT head in the meantime. General surgery is also unable to remove the broken needle in the patient's right arm in order to get her an MRI due to anesthesia concerns about electrolytes given that the patient has a potassium of 3.2. I discussed with them the notion of correcting the electrolytes and readdressing, but since we have learned about the CVL complication, we will hold off on all procedures until tomorrow. LP and BABAK will also be delayed because of this. Antibiotics continue. Now the patient is off of insulin drip, we will switch her fluids to LR given that she is developing hypernatremia. Once she has tube feeding and free water running through an NG tube, we could potentially stop IV fluids altogether. On the right side, INR is lower at 1.28 which would allow any of the above procedures if we were actually able to do them today. I called the patient's mother yesterday and gave her a very detailed extensive update on the many diagnostic tests and treatments we are providing to the patient. We spoke for at least 30 to 45 minutes total. Apparently, Ms. Noonan had her cell phone set to ignore outside phone calls automatically and she states this feature is been turned off so that I can communicate with her when needed. 05/23/2020 We will be trying to get the patient an LP today. I have added Zyprexa and instructed the nurse to give her an extra dose of 2 mg Ativan prior to going down for this procedure. If needed, we can give additional sedation on top of this. It is imperative that we get this lumbar puncture today. This procedure has been ordered for the past few days and was not able to be done due to the vascular complication of the central line placement and also the patient's severe agitation during the attempted procedure. ID consult note has been done although it seems that they have not noticed the patient has already had an echocardiogram 3 days ago and I am actually trying to arrange a BABAK given that the TTE did not show endocarditis. We have had multiple attempts at getting an LP and will try again today. I am available to discuss the case with them anytime if they need help interpreting the plan. They recommended stopping vancomycin and cefepime and acyclovir, start nafcillin. I spoke with Dr. Knutson myself today and clarified the current results and the plan going forward. I was not sure what he meant by working up the patient's shoulder or which shoulder it might be and he states this was simply part of his discussion with the pharmacist and he was not sure of it either. I spoke with the patient's father today and gave him an update as well. HIV negative. Hepatitis panel pending. Temperature is a bit higher to 100.1 today. We still need to get an LP, foreign body needle removed, MRI brain. Reason For Visit: ACUTE METABOLIC ENCEPHALOPATHY Physical Exam Vital Signs: Temp Pulse Resp BP Pulse Ox 98.7 F 98 16 113/77 93 05/23/20 08:24 05/23/20 08:24 05/23/20 08:24 05/23/20 08:24 05/23/20 08:24 Intake & Output 05/22/20 05/23/20 05/24/20 06:59 06:59 06:59 Intake Total 1301 1851 1000 Balance 1301 1851 1000 Weight 65.6 kg 66.5 kg Exam: General appearance: PRESENT: No acute distress, disheveled, persistent confusion persists, flailing around in bed at times Head exam: PRESENT: atraumatic, normocephalic Eye exam: PRESENT: conjunctiva pink. ABSENT: scleral icterus Mouth exam: PRESENT: Dry Respiratory exam: PRESENT: clear to auscultation brandon. ABSENT: rales, rhonchi, wheezes Cardiovascular exam: PRESENT: RRR. ABSENT: diastolic murmur, rubs, systolic murmur GI/Abdominal exam: PRESENT: normal bowel sounds, soft. ABSENT: distended, guar ding, mass, organolmegaly, rebound, tenderness Neurological exam: PRESENT: Not alert or awake, oriented to person only Psychiatric exam: PRESENT: Agitated Skin exam: PRESENT: dry, intact, warm; multiple healing scabbed wounds on upper extremities Results Laboratory Results: 05/22/20 06:36 05/23/20 10:30 05/23/20 05/23/20 10:30 10:30 Sodium 147.2 H Potassium 2.7 L* Chloride 112 H Carbon Dioxide 28 Anion Gap 7 BUN 11 Creatinine Cancelled 0.50 L Est GFR ( Amer) Cancelled > 60 Est GFR (Non-Af Amer) Cancelled Glucose 198 H Calcium 8.4 05/19/20 13:25 Blood Blood Culture (PCR) - Final 05/19/20 05/19/20 05/20/20 11:56 20:15 03:12 Troponin I 0.026 0.041 0.046 Impressions: Renal Ultrasound 05/19/20 00:00 IMPRESSION: There is fullness of the right renal pelvis which may represent an extrarenal pelvis or mild hydronephrosis. Abdomen/Pelvis CT 05/19/20 12:06 IMPRESSION: 1. Asymmetrically enlarged, likely edematous, right kidney suggestive of pyelonephritis. Recommend correlation with UA. No hydronephrosis. 2. No evidence of acute intra-abdominal/pelvic process. Normal appendix. 3. Moderate formed stool throughout the colon. Wrist X-Ray 05/20/20 00:00 IMPRESSION: NEGATIVE STUDY OF THE RIGHT WRIST. NO RADIOGRAPHIC EVIDENCE OF ACUTE INJURY. Forearm X-Ray 05/21/20 00:00 IMPRESSION: 7 mm needle fragment in the antecubital fossa soft tissues Hand X-Ray 05/21/20 00:00 IMPRESSION: No radiopaque foreign body identified Humerus X-Ray 05/21/20 00:00 IMPRESSION: 7 mm needle fragment in the antecubital fossa soft tissues Chest CT 05/22/20 00:00 IMPRESSION: Right central line terminates within the right atrium. Mediastinal widening demonstrated on comparison radiographs correlates to a homogeneous collection favored to be on the basis of a hematoma. No demonstrated contrast collection after fluoroscopic evaluation of line patency and position. Fluoroscopy 05/22/20 00:00 IMPRESSION: FLUOROSCOPIC EVALUATION OF INDWELLING CENTRAL CATHETER, WITHOUT EVIDENCE FOR COMPLICATION OR EXTRAVASATION. Head CT 05/22/20 00:00 IMPRESSION: Very limited study. No bleed or mass. Subtle decreased attenuation in the right posterior frontal and parietal lobe cannot be excluded as discussed above. EVIDENCE OF ACUTE STROKE: NO. KUB X-Ray 05/22/20 17:12 IMPRESSION: NG tube as described. Constipation. Chest X-Ray 05/23/20 07:00 IMPRESSION: NG tube placement. No other interval change in the chest. Upper mediastinal fullness is unchanged. Assessment and Plan - Diagnosis (1) Sepsis Qualifiers: Sepsis type: sepsis due to unspecified organism Sepsis acute organ dysfunction status: with acute organ dysfunction Severe sepsis acute organ dysfunction type: encephalopathy Severe sepsis shock status: without septic shock Qualified Code(s): A41.9 - Sepsis, unspecified organism; R65.20 - Severe sepsis without septic shock; G93.40 - Encephalopathy, unspecified Is this a current diagnosis for this admission?: Yes (2) Diabetic keto-acidosis Qualifiers: Diabetes mellitus type: type 1 Diabetes mellitus complication detail: without coma Qualified Code(s): E10.10 - Type 1 diabetes mellitus with ketoacidosis without coma Is this a current diagnosis for this admission?: Yes (3) Acute metabolic encephalopathy Is this a current diagnosis for this admission?: Yes (4) High anion gap metabolic acidosis Is this a current diagnosis for this admission?: Yes (5) Enlarged kidney Is this a current diagnosis for this admission?: Yes (6) Heroin abuse Is this a current diagnosis for this admission?: Yes (7) Ulcerative colitis without complications Qualifiers: Ulcerative colitis location: unspecified ulcerative colitis location Qualified Code(s): K51.90 - Ulcerative colitis, unspecified, without complications Is this a current diagnosis for this admission?: Yes (8) Mass of lower lobe of right lung Is this a current diagnosis for this admission?: Yes (9) Injury due to hypodermic needle Is this a current diagnosis for this admission?: Yes (10) Foreign body of right upper arm Is this a current diagnosis for this admission?: Yes (11) Hypokalemia Is this a current diagnosis for this admission?: Yes (12) Central line complication Qualifiers: Encounter type: initial encounter Qualified Code(s): T82.9XXA - Unspecified complication of cardiac and vascular prosthetic device, implant and graft, initial encounter Is this a current diagnosis for this admission?: Yes - Plan Summary Summary: (1) Sepsis Qualifiers: Sepsis type: sepsis due to unspecified organism Sepsis acute organ dysfunction status: with acute organ dysfunction Severe sepsis acute organ dysfunction type: encephalopathy Severe sepsis shock status: without septic shock Qualified Code(s): A41.9 - Sepsis, unspecified organism; R65.20 - Severe sepsis without septic shock; G93.40 - Encephalopathy, unspecified Is this a current diagnosis for this admission?: Yes Plan: Unclear etiology: Suspect bacteremia from infective endocarditis versus lung abscess versus meningitis/encephalitis Chest CT with contrast showed 2 cm mass in posterior right lobe concerning for malignancy Abdomen/pelvis CT showed enlarged right kidney possible pyelonephritis although UA is not infected Possible bacteremia from multiple scabbed skin wounds consistent with IV drug abuse Vancomycin/cefepime/acyclovir discontinued on 05/23 per ID Blood cultures growing staph aureus 2/2 bottles Chest x-ray showed right middle lobe opacity of unclear etiology Echocardiogram showed normal cardiac function, negative for vegetations, mild pulmonary hypertension BABAK and lumbar puncture delayed due to elevated INR and small mediastinal hemorrhage from CVL Right arm foreign body removal of needle delayed ID consulted: Recommended stopping vancomycin/acyclovir/cefepime and replacing these with nafcillin LP to be attempted again on 05/23 (2) Diabetic keto-acidosis Qualifiers: Diabetes mellitus type: type 1 Diabetes mellitus complication detail: without coma Qualified Code(s): E10.10 - Type 1 diabetes mellitus with ketoacidosis without coma Is this a current diagnosis for this admission?: Yes Plan: Likely precipitated by sepsis, treatment as above Insulin drip started, transition to subcutaneous Lantus and sliding scale insulin IV fluids, LR initially then changed to D5 normal saline with 20 of potassium once blood sugar is below 250 mg/dL Trend BMP Needs follow-up with endocrinology outpatient ABG unable to be done due to multiple blood draw problems Resolved (3) Acute metabolic encephalopathy Is this a current diagnosis for this admission?: Yes Plan: Due to sepsis and DKA Treatment as above CT head with no acute findings (4) High anion gap metabolic acidosis Is this a current diagnosis for this admission?: Yes Plan: Treat DKA and sepsis Trend BMP Resolved (5) Enlarged kidney Is this a current diagnosis for this admission?: Yes Plan: Unclear etiology Renal ultrasound showed possible mild hydronephrosis versus extrarenal pelvis (6) Heroin abuse Is this a current diagnosis for this admission?: Yes Plan: UDS negative but multiple skin wounds consistent with drug abuse (7) Ulcerative colitis without complications Qualifiers: Ulcerative colitis location: unspecified ulcerative colitis location Qualified Code(s): K51.90 - Ulcerative colitis, unspecified, without complications Is this a current diagnosis for this admission?: Yes Plan: Unclear if patient is on any treatment for this (8) Mass of lower lobe of right lung Is this a current diagnosis for this admission?: Yes Needs biopsy Consulted pulmonology for their opinion on approach for biopsy (9) Injury due to hypodermic needle Is this a current diagnosis for this admission?: Yes Plan: Previous broken needle implanted in the right forearm near elbow/humerus General surgery consulted for removal (10) Foreign body of right upper arm Is this a current diagnosis for this admission?: Yes Plan: 05/22/2020 General surgery consulted: Planning to hold off on needle removal for now due to CVL complication Per general surgery: "Cancel plans for foreign body removal right arm until the above tasks complete. We will continue to follow patient with you." (11) Hypokalemia Is this a current diagnosis for this admission?: Yes (12) Central line complication Qualifiers: Encounter type: initial encounter Qualified Code(s): T82.9XXA - Unspecified complication of cardiac and vascular prosthetic device, implant and graft, initial encounter Is this a current diagnosis for this admission?: Yes Plan: Possibly due to patient agitation, small mediastinal hemorrhage noted on CT scan Discussed with nursing we can use additional sedating medications whenever needed to maintain a controlled environment if the patient has procedures planned - Time Time Spent with patient: 35 or more minutes Medications reviewed and adjusted accordingly: Yes Anticipated Discharge Disposition: Tertiary Anticipated Discharge Timeframe: within 72 hours - Inpatient Certification Based on my medical assessment, after consideration of the patient's comorbidities, presenting symptoms, or acuity I expect that the services needed warrant INPATIENT care.: Yes I certify that my determination is in accordance with my understanding of Medicare's requirements for reasonable and necessary INPATIENT services [42 CFR 412.3e].: Yes Medical Necessity: Significant Comorbidiites Make Outpatient Treatment Too Risky, Need Close Monitoring Due to Risk of Patient Decompensation, Need for IV Antibiotics, Need for Surgery, Risk of Complication if Not Cared For in H [facility]spital, Risk of Diagnosis Which Will Require Inpatient Eval/Care/Monitoring
[2020-05-23 15:38] LABS: ABSOLUTE BASOPHILS # (AUTO) 0.1 10^3/uL (0.0-0.2); ABSOLUTE EOSINOPHILS # (AUTO) 0.1 10^3/uL (0.0-0.6); ABSOLUTE LYMPHOCYTES (AUTO) 1.9 10^3/uL (0.5-4.7); ABSOLUTE MONOCYTES (AUTO) 0.8 10^3/uL (0.1-1.4); ABSOLUTE NEUT (AUTO) 8.4 10^3/uL (1.7-8.2); BASOPHILS % (AUTO) 0.5 % (0-2); EOSINOPHILS % (AUTO) 0.6 % (0-6); LYMPHOCYTES % (AUTO) 16.9 % (13-45); MEAN CORPUSCULAR HEMOGLOBIN 29.9 pg (27.0-33.4); MEAN CORPUSCULAR HGB CONC 34.7 g/dL (32.0-36.0); MEAN CORPUSCULAR VOLUME 86 fl (80-97); MONOCYTES % (AUTO) 6.9 % (3-13); PLATELET COUNT 206 10^3/uL (150-450); RED BLOOD COUNT 3.01 10^6/uL (3.72-5.28); SEGMENTED NEUTROPHILS % (AUTO) 75.1 % (42-78); TOTAL CELLS COUNTED % (AUTO) 100 %; WHITE BLOOD COUNT 11.2 10^3/uL (4.0-10.5)
[2020-05-23] MEDS: OLANZAPINE 5 MG TABLET NG SCH ×2 (17:50→18:49)
[2020-05-23] MEDS: NAFCILLIN SODIUM 2 GM in DEXTROSE 5%-WATER 100 ML IV SCH ×2 (19:55→22:59)
[2020-05-23] MEDS: THIAMINE HCL 100 MG in NORMAL SALINE 50 ML IV SCH (21:04)
[2020-05-23] MEDS: POTASSIUM CHLORIDE 20 MEQ PACKET NG SCH (21:05)
--- NOTE | 2020-05-23 23:30 | RADIOLOGY REPORT (SQ) ---
Abdomen x-ray single view on 05/23/2020 at 10:26 PM Clinical indications: NG tube placement COMPARISON: 05/22/2020 FINDINGS: NG tube is curled in the upper stomach with its tip in the fundus of the stomach. Bowel gas pattern is unremarkable. Mild increased stool is noted in the colon suggesting constipation. No abnormal calcification or mass effect is noted. IMPRESSION: NG tube tip in the upper stomach.
[2020-05-24] MEDS: INSULIN REG, HUMAN 100 UNIT/ML 3 ML VIAL (PYX) SUBCUT SCH ×4 (00:25→17:32)
[2020-05-24] MEDS: LORAZEPAM INJ 2 MG/1 ML VIAL IV PRN ×3 (01:30→22:08)
[2020-05-24] MEDS: HALOPERIDOL LACTATE INJ 5 MG/1 ML VIAL IV PRN (01:30)
[2020-05-24] MEDS: NAFCILLIN SODIUM 2 GM in DEXTROSE 5%-WATER 100 ML IV SCH ×6 (02:26→22:12)
[2020-05-24 05:35] LABS: HEMATOCRIT 27.1 % (36.0-47.0); HEMOGLOBIN 9.4 g/dL (12.0-15.5); MEAN CORPUSCULAR HEMOGLOBIN 29.9 pg (27.0-33.4); MEAN CORPUSCULAR HGB CONC 34.6 g/dL (32.0-36.0); MEAN CORPUSCULAR VOLUME 87 fl (80-97); PLATELET COUNT 233 10^3/uL (150-450); RED BLOOD COUNT 3.14 10^6/uL (3.72-5.28); RED CELL DISTRIBUTION WIDTH 14.1 % (11.5-14.0); WHITE BLOOD COUNT 11.1 10^3/uL (4.0-10.5)
[2020-05-24 05:38] LABS: HEPATITS B SURFACE ANTIGEN Negative (Negative)
[2020-05-24 05:46] LABS: ANION GAP 7 (5-19); BLOOD UREA NITROGEN 11 mg/dL (7-20); CALCIUM 8.3 mg/dL (8.4-10.2); CARBON DIOXIDE 30 mmol/L (22-30); CHLORIDE 108 mmol/L (98-107); GLUCOSE 246 mg/dL (75-110)
[2020-05-24 06:00] LABS: VANCOMYCIN,TROUGH < 5.0 ug/mL (5.0-20.0)
[2020-05-24] MEDS ORDERED: OLANZAPINE 5 MG TABLET NG ONE (06:00)
[2020-05-24] MEDS ORDERED: LORAZEPAM INJ 2 MG/1 ML VIAL IV ONE (06:00)
[2020-05-24 06:19] LABS: ABSOLUTE LYMPHOCYTES# (MANUAL) 1.1 10^3/uL (0.5-4.7); ABSOLUTE MONOCYTES # (MANUAL) 0.9 10^3/uL (0.1-1.4); BAND NEUTROPHILS % (MANUAL) 2 % (3-5); BASOPHILS % (MANUAL) 0 % (0-2); EOSINOPHILS % (MANUAL) 2 % (0-6); LYMPHOCYTES % (MANUAL) 10 % (13-45); MONOCYTES % (MANUAL) 8 % (3-13); SEGMENTED NEUTROPHILS % (MAN) 78 % (42-78); TOTAL CELLS COUNTED 100
[2020-05-24 06:20] LABS: ANISOCYTOSIS SLIGHT; PLATELET COMMENT ADEQUATE
[2020-05-24] MEDS ORDERED: POTASSIUM CHLORIDE 20 MEQ PACKET NG ONE (07:00)
[2020-05-24 07:24] LABS: HEPATITIS C VIRUS ANTIBODY >11.0 s/co ratio (0.0-0.9)
[2020-05-24] MEDS ORDERED: HYDROMORPHONE HCL INJ/PF 2 MG/ML AMPULE IV PRN (08:41)
[2020-05-24] MEDS: OLANZAPINE 5 MG TABLET NG SCH (09:06)
[2020-05-24] MEDS: DOCUSATE SODIUM 100 MG CAPSULE PO SCH (09:23)
[2020-05-24] MEDS ORDERED: INSULIN GLARGINE,HUM.REC.ANLOG 1,000 UNIT/10 ML VIAL (PYX) SUBCUT ONE ×2 (09:30→13:00)
[2020-05-24] MEDS ORDERED: LORAZEPAM INJ 2 MG/1 ML VIAL IV PRN (10:14)
--- NOTE | 2020-05-24 12:33 | RADIOLOGY REPORT (SQ) ---
EXAM DESCRIPTION: LUMBAR PUNCTURE IMAGES COMPLETED DATE/TIME: 05/24/2020 12:15 pm REASON FOR STUDY: Acute metabolic enceph COMPARISON: None. FLUOROSCOPY TIME: 2.4 seconds. 1 image submitted to PACS. TECHNIQUE: Integrated into the Procedure. LIMITATIONS: None. PROCEDURE: The procedure, risks, benefits, and alternatives were discussed with the patient in the p reprocedural area, and all questions were answered. Informed consent was obtained verbally and in wri ting. The patient was then brought to the procedural suite, positioned prone on the fluoroscopy table, and a time-out was performed. The L3-L4 level was subsequently localized with fluoroscopy and the access site was marked on the skin. The area around the access site was then prepped and draped with 2% chlo rhexidine utilizing standard sterile technique. After that, the access site was anesthetized with 5 mL of 1% lidocaine. A 22 gauge spinal needle was then advanced, utilizing fluoroscopic guidance, thro ugh the skin and into the thecal sac. At this time the opening pressure was measured - 25 cm of H2O - and approximately 10 mL of spinal fluid was collected for analysis. The needle was then removed and a sterile dressing was applied over the access site. At the end of the procedure the patient's condition was unchanged from the preprocedural baseline. The patient tolerated the procedure well without immediate complication. Documentation of [id number] time performing proceduralist spent monitoring the patient: minutes. FINDINGS: Clear CSF. IMPRESSION: Successful fluoroscopic guided lumbar puncture. COMMENT: Patient medication list reviewed: Yes- Quality ID# [id number]:Eligible professional attests to doc umenting in the medical record they obtained, updated, or reviewed the patient's current medications. . Quality ID [id number]: Final reports for procedures using fluoroscopy that document radiation exposure mikayla charisma, or exposure time and number of fluorographic images (if radiation exposure indices are not avail able) TECHNICAL DOCUMENTATION: JOB ID: [id number] 2010 [employer]- All Rights Reserved Reading location - IP/workstation name: [email or web address]
[2020-05-24 13:04] LABS: GLUCOSE,CSF 118 mg/dL (40-70); PROTEIN,CSF 102 mg/dL (12-60)
[2020-05-24 13:10] LABS: APPEARANCE ALL TUBES CLEAR; COLOR ALL TUBES COLORLESS; CSF TUBE NUMBER 3; RED BLOOD CELL,CSF 1 /uL (0-10); VOLUME TUBE 2 2.1 CC; VOLUME TUBE 3 2.1 CC; VOLUME TUBE 4 2.8 CC
[2020-05-24 13:11] LABS: WHITE BLOOD CELL,CSF 7 /uL (0-5)
[2020-05-24 13:24] LABS: MONONUCLEAR CELLS CSF 79 %; POLYMORPHONUCLEAR CELLS CSF 21 %
[2020-05-24] MEDS: POTASSIUM CHLORIDE 20 MEQ PACKET NG SCH ×2 (13:38→23:54)
--- NOTE | 2020-05-24 14:56 | PDOC PROGRESS REPORT ---
Subjective Progress Note for:: 05/24/20 Subjective:: patient sleepy Reason For Visit: ACUTE METABOLIC ENCEPHALOPATHY Physical Exam Vital Signs: Temp Pulse Resp BP Pulse Ox 98.8 F 94 18 101/65 96 05/24/20 12:17 05/24/20 12:17 05/24/20 12:17 05/24/20 12:17 05/24/20 12:17 Intake & Output 05/23/20 05/24/20 05/25/20 06:59 06:59 06:59 Intake Total 1851 2194 Balance 1851 2194 Weight 66.5 kg 61.6 kg 61.6 kg General appearance: PRESENT: no acute distress Extremities exam: PRESENT: other - Right upper extremity = no foreign body palpated in the antecubital fossa Results Laboratory Results: 05/24/20 05:00 05/24/20 05:00 05/23/20 05/23/20 05/24/20 10:30 14:50 05:00 WBC 11.2 H 11.1 H RBC 3.01 L 3.14 L Hgb 9.0 L 9.4 L Hct 26.0 L 27.1 L MCV 86 87 MCH 29.9 29.9 MCHC 34.7 34.6 RDW 14.0 14.1 H Plt Count 206 233 Seg Neutrophils % 75.1 Not Reportable Sodium Potassium Chloride Carbon Dioxide Anion Gap BUN Creatinine Est GFR ( Amer) Glucose Calcium Magnesium 1.7 Fluid Tube Number CSF Volume CSF Appearance CSF Color CSF WBC CSF RBC CSF Polymorphonuclear CSF Glucose CSF Total Protein 05/24/20 05/24/20 05/24/20 05:00 11:50 11:50 WBC RBC Hgb Hct MCV MCH MCHC RDW Plt Count Seg Neutrophils % Sodium 145.4 H Potassium 3.0 L* Chloride 108 H Carbon Dioxide 30 Anion Gap 7 BUN 11 Creatinine 0.45 L Est GFR ( Amer) > 60 Glucose 246 H Calcium 8.3 L Magnesium Fluid Tube Number 3 CSF Volume 9.0 CSF Appearance CLEAR CSF Color COLORLESS CSF WBC 7 H CSF RBC 1 CSF Polymorphonuclear 21 CSF Glucose 118 H CSF Total Protein 102 H 05/19/20 13:25 Blood Blood Culture (PCR) - Final 05/19/20 13:25 Blood Blood Culture - Final Staphylococcus Aureus 05/19/20 05/19/20 05/20/20 11:56 20:15 03:12 Troponin I 0.026 0.041 0.046 Impressions: Renal Ultrasound 05/19/20 00:00 IMPRESSION: There is fullness of the right renal pelvis which may represent an extrarenal pelvis or mild hydronephrosis. Abdomen/Pelvis CT 05/19/20 12:06 IMPRESSION: 1. Asymmetrically enlarged, likely edematous, right kidney suggestive of pyelonephritis. Recommend correlation with UA. No hydronephrosis. 2. No evidence of acute intra-abdominal/pelvic process. Normal appendix. 3. Moderate formed stool throughout the colon. Wrist X-Ray 05/20/20 00:00 IMPRESSION: NEGATIVE STUDY OF THE RIGHT WRIST. NO RADIOGRAPHIC EVIDENCE OF ACUTE INJURY. Forearm X-Ray 05/21/20 00:00 IMPRESSION: 7 mm needle fragment in the antecubital fossa soft tissues Hand X-Ray 05/21/20 00:00 IMPRESSION: No radiopaque foreign body identified Humerus X-Ray 05/21/20 00:00 IMPRESSION: 7 mm needle fragment in the antecubital fossa soft tissues Chest CT 05/22/20 00:00 IMPRESSION: Right central line terminates within the right atrium. Mediastinal widening demonstrated on comparison radiographs correlates to a homogeneous collection favored to be on the basis of a hematoma. No demonstrated contrast collection after fluoroscopic evaluation of line patency and position. Fluoroscopy 05/22/20 00:00 IMPRESSION: FLUOROSCOPIC EVALUATION OF INDWELLING CENTRAL CATHETER, WITHOUT EVIDENCE FOR COMPLICATION OR EXTRAVASATION. Head CT 05/22/20 00:00 IMPRESSION: Very limited study. No bleed or mass. Subtle decreased attenuation in the right posterior frontal and parietal lobe cannot be excluded as discussed above. EVIDENCE OF ACUTE STROKE: NO. KUB X-Ray 05/23/20 00:00 IMPRESSION: NG tube tip in the upper stomach. Chest X-Ray 05/23/20 07:00 IMPRESSION: NG tube placement. No other interval change in the chest. Upper mediastinal fullness is unchanged. Lumbar Puncture 05/24/20 00:00 IMPRESSION: Successful fluoroscopic guided lumbar puncture. Assessment & Plan - Diagnosis (1) Foreign body of right upper arm Is this a current diagnosis for this admission?: Yes - Time Anticipated Discharge Disposition: Home with Home Health Anticipated Discharge Timeframe: When medically stable - Plan Summary Plan Summary: Assessment: History of IV drug abuse with multiple medical problems Need of MRI of the brain to identify the cause of her encephalopathy Right antecubital area 7 mm long foreign body as per broken off insulin syringe needle is not palpable on physical exam and is not causing any symptoms The needle has been present in the right antecubital area for quite some time (several months) Plan: The risks of removing this small metallic foreign body from the antecubital area overcome the risks of leaving the small broken off needle in place In addition, this is a small broken off needle present in the antecubital fossa for quite some time, it is lodged in the subcutaneous tissue, and he will not move during the MRI of the brain Therefore, the MRI of the brain can be safely performed I will sign off. Please call me with questions
--- NOTE | 2020-05-24 17:39 | PDOC PROGRESS REPORT ---
Subjective Subjective:: ИВАН MONTELONGO is a 35 year old female with past medical history significant for IV drug abuse, diabetes, ulcerative colitis, chronic pain who presents to the ED via EMS after her parents called 911 due to the patient having confusion and combativeness. Patient was brought to ED and started on IV fluids. CT of abdomen/pelvis showed enlarged edematous right kidney possible pyelonephritis although UA was not consistent with infection. No hydronephrosis. UA did show massive amount of glucose as well as ketones. Patient has multiple small wounds on her upper extremities consistent with possible injection sites and small areas of potential cellulitis. Reportedly, patient has been off IV drugs which is not consistent with physical exam findings. History cannot be obtained by the patient as she is confused and I have tried many times to contact her family via the phone numbers in the chart and they do not answer the phone or return my calls. History obtained solely from the chart and ED personnel. Head CT showed no acute findings. Chest x-ray showed a subtle ovoid groundglass opacity in the right middle lung infectious or inflammatory. CT chest was not obtained in ED and I have ordered a CT chest to evaluate this possible lung infarction or lung abscess which could have been implanted from IV drug abuse. IV fluids started. Patient became confused and combative and pulled out her IV and she was put in restraints. She is oriented only to herself on admission. Labs are remarkable for a gap acidosis and a blood sugar of 417. She was not yet started on insulin drip. I requested that the ED start this promptly during my initial discussion with attending physician. Patient's troponin is mildly elevated and this is trending. Suspect infected endocarditis as a source of patient's DKA. Echocardiogram ordered. Vancomycin and cefepime started. Blood cultures pending. 05/20/2020 Patient still confused and combative at times. IV Ativan as needed being given intermittently. Per nursing, patient twisted her arm and then was complaining of it hurting. We will get an x-ray to look at her right wrist. Fever has resolved, troponin flat, lipase normal, ammonia negative. A1c is 10. Low phosphorus and elevated lactic acid. Blood cultures growing staph aureus in both bottles. Covid testing is pending. Blood sugar is dropped to an acceptable level. CT chest shows a suspicious mass and I will discuss getting a biopsy with her family. I suspect may be an abscess rather than malignancy but radiologist report states it is very suspicious for malignancy. I have also ordered a lumbar puncture with appropriate labs. Echocardiogram has been done but not read yet. Clinical picture seems consistent with infectious endocarditis with sepsis. 05/21/2020 Patient's mentation has not improved in any meaningful way. She continues to answer almost all questions with her birthdate. White blood cell count is trending down, blood sugar is now in the mid 200s and we have restarted subcutaneous insulin. Blood cultures are now growing MSSA in both bottles and patient is continued on broad-spectrum antibiotics for now. Echocardiogram showed normal cardiac function with mild pulmonary hypertension and no vegetations. Lumbar puncture has been delayed due to INR being approximately 1.6 and the radiologist would like it at 1.5 or below. Patient was given vitamin K today and recheck of INR is actually higher. Patient has no signs of bleeding. PICC line will be placed today. MRI brain ordered however according to patient's mother she has a broken needle in her right arm. I have consulted general surgery to remove this broken needle given that per the x-rays it seems to be rather superficial. We will wait to see what they think about removing it. Antibiotics continue. BABAK ordered. Right wrist x-ray did not show any fractures. Patient remains in restraints for her own safety. Covid is negative. She should be moved to a general IMCU bed as soon as possible. 05/22/2020 Patient's mentation does not seem to be any improved today. She is still requiring restraints to protect her lines. We will drop an NG tube today and start tube feeds that she has had no nutrition for the past 2 days. Central line was put in yesterday by general surgery and due to patient agitation and movement, seems to have a small mediastinal hemorrhage according to general surg sherman whom I spoke with today. They recommended holding on any procedures today and having these done tomorrow instead. I also recommended stopping all blood thinners for the time being. We will get a dry CT head in the meantime. General surgery is also unable to remove the broken needle in the patient's right arm in order to get her an MRI due to anesthesia concerns about electrolytes given that the patient has a potassium of 3.2. I discussed with them the notion of correcting the electrolytes and readdressing, but since we have learned about the CVL complication, we will hold off on all procedures until tomorrow. LP and BABAK will also be delayed because of this. Antibiotics continue. Now the patient is off of insulin drip, we will switch her fluids to LR given that she is developing hypernatremia. Once she has tube feeding and free water running through an NG tube, we could potentially stop IV fluids altogether. On the right side, INR is lower at 1.28 which would allow any of the above procedures if we were actually able to do them today. I called the patient's mother yesterday and gave her a very detailed extensive update on the many diagnostic tests and treatments we are providing to the patient. We spoke for at least 30 to 45 minutes total. Apparently, Ms. Noonan had her cell phone set to ignore outside phone calls automatically and she states this feature is been turned off so that I can communicate with her when needed. 05/23/2020 We will be trying to get the patient an LP today. I have added Zyprexa and instructed the nurse to give her an extra dose of 2 mg Ativan prior to going down for this procedure. If needed, we can give additional sedation on top of this. It is imperative that we get this lumbar puncture today. This procedure has been ordered for the past few days and was not able to be done due to the vascular complication of the central line placement and also the patient's severe agitation during the attempted procedure. ID consult note has been done although it seems that they have not noticed the patient has already had an echocardiogram 3 days ago and I am actually trying to arrange a BABAK given that the TTE did not show endocarditis. We have had multiple attempts at getting an LP and will try again today. I am available to discuss the case with them anytime if they need help interpreting the plan. They recommended stopping vancomycin and cefepime and acyclovir, start nafcillin. I spoke with Dr. Knutson myself today and clarified the current results and the plan going forward. I was not sure what he meant by working up the patient's shoulder or which shoulder it might be and he states this was simply part of his discussion with the pharmacist and he was not sure of it either. I spoke with the patient's father today and gave him an update as well. HIV negative. Hepatitis panel pending. Temperature is a bit higher to 100.1 today. We still need to get an LP, foreign body needle removed, MRI brain. 05/24/2020 Lumbar puncture done today and initial CSF results show high white blood cells with a mononuclear predominance, high glucose and high protein. Appears it could be consistent with a viral encephalitis. Cultures have been sent and are pending. I will restart acyclovir IV for the time being. This will continue until we get finalized CSF culture results. I had a long discussion with the patient's daughter and sister over the phone today. I answered many questions. The next step in the patient's treatment will be to get a BABAK hopefully on Tuesday. We need to confirm a valvular vegetation and potentially move forward with CT surgery consult at an outside hospital if this is confirmed. Patient is perhaps a bit more alert today and states the date is 2019 and she is at [facility]. She also recognizes her daughter. She continues to keep her eyes closed for most the day. Potassiums low we will replete this. Blood sugar is still high and I have increased her Lantus. Reason For Visit: ACUTE METABOLIC ENCEPHALOPATHY Physical Exam Vital Signs: Temp Pulse Resp BP Pulse Ox 98.8 F 111 H 18 101/65 96 05/24/20 12:17 05/24/20 14:00 05/24/20 12:17 05/24/20 12:17 05/24/20 12:17 Intake & Output 05/23/20 05/24/20 05/25/20 06:59 06:59 06:59 Intake Total 1851 2194 Balance 1851 2194 Weight 66.5 kg 61.6 kg 61.6 kg Exam: General appearance: PRESENT: No acute distress, disheveled, persistent confusion persists, calm and speaking a bit more clearly today although eyes remain closed Head exam: PRESENT: atraumatic, normocephalic Eye exam: PRESENT: conjunctiva pink. ABSENT: scleral icterus Mouth exam: PRESENT: Dry Respiratory exam: PRESENT: clear to auscultation brandon. ABSENT: rales, rhonchi, wheezes Cardiovascular exam: PRESENT: RRR. ABSENT: diastolic murmur, rubs, systolic murmur GI/Abdominal exam: PRESENT: normal bowel sounds, soft. ABSENT: distended, guarding, mass, organolmegaly, rebound, tenderness Neurological exam: PRESENT: Not fully alert or awake, oriented to person and place Psychiatric exam: PRESENT: Agitated Skin exam: PRESENT: dry, intact, warm; multiple healing scabbed wounds on upper extremities Results Laboratory Results: 05/24/20 05:00 05/24/20 05:00 05/23/20 05/24/20 05/24/20 10:30 05:00 05:00 WBC 11.1 H RBC 3.14 L Hgb 9.4 L Hct 27.1 L MCV 87 MCH 29.9 MCHC 34.6 RDW 14.1 H Plt Count 233 Seg Neutrophils % Not Reportable Sodium 145.4 H Potassium 3.0 L* Chloride 108 H Carbon Dioxide 30 Anion Gap 7 BUN 11 Creatinine 0.45 L Est GFR ( Amer) > 60 Glucose 246 H Calcium 8.3 L Magnesium 1.7 Fluid Tube Number CSF Volume CSF Appearance CSF Color CSF WBC CSF RBC CSF Polymorphonuclear CSF Glucose CSF Total Protein 05/24/20 05/24/20 11:50 11:50 WBC RBC Hgb Hct MCV MCH MCHC RDW Plt Count Seg Neutrophils % Sodium Potassium Chloride Carbon Dioxide Anion Gap BUN Creatinine Est GFR ( Amer) Glucose Calcium Magnesium Fluid Tube Number 3 CSF Volume 9.0 CSF Appearance CLEAR CSF Color COLORLESS CSF WBC 7 H CSF RBC 1 CSF Polymorphonuclear 21 CSF Glucose 118 H CSF Total Protein 102 H 05/19/20 13:25 Blood Blood Culture (PCR) - Final 05/19/20 13:25 Blood Blood Culture - Final Staphylococcus Aureus 05/19/20 05/19/20 05/20/20 11:56 20:15 03:12 Troponin I 0.026 0.041 0.046 Impressions: Renal Ultrasound 05/19/20 00:00 IMPRESSION: There is fullness of the right renal pelvis which may represent an extrarenal pelvis or mild hydronephrosis. Abdomen/Pelvis CT 05/19/20 12:06 IMPRESSION: 1. Asymmetrically enlarged, likely edematous, right kidney suggestive of pyelonephritis. Recommend correlation with UA. No hydronephrosis. 2. No evidence of acute intra-abdominal/pelvic process. Normal appendix. 3. Moderate formed stool throughout the colon. Wrist X-Ray 05/20/20 00:00 IMPRESSION: NEGATIVE STUDY OF THE RIGHT WRIST. NO RADIOGRAPHIC EVIDENCE OF ACUTE INJURY. Forearm X-Ray 05/21/20 00:00 IMPRESSION: 7 mm needle fragment in the antecubital fossa soft tissues Hand X-Ray 05/21/20 00:00 IMPRESSION: No radiopaque foreign body identified Humerus X-Ray 05/21/20 00:00 IMPRESSION: 7 mm needle fragment in the antecubital fossa soft tissues Chest CT 05/22/20 00:00 IMPRESSION: Right central line terminates within the right atrium. Mediastinal widening demonstrated on comparison radiographs correlates to a homogeneous collection favored to be on the basis of a hematoma. No demonstrated contrast collection after fluoroscopic evaluation of line patency and position. Fluoroscopy 05/22/20 00:00 IMPRESSION: FLUOROSCOPIC EVALUATION OF INDWELLING CENTRAL CATHETER, WITHOUT EVIDENCE FOR COMPLICATION OR EXTRAVASATION. Head CT 05/22/20 00:00 IMPRESSION: Very limited study. No bleed or mass. Subtle decreased a ttenuation in the right posterior frontal and parietal lobe cannot be excluded as discussed above. EVIDENCE OF ACUTE STROKE: NO. KUB X-Ray 05/23/20 00:00 IMPRESSION: NG tube tip in the upper stomach. Chest X-Ray 05/23/20 07:00 IMPRESSION: NG tube placement. No other interval change in the chest. Upper mediastinal fullness is unchanged. Lumbar Puncture 05/24/20 00:00 IMPRESSION: Successful fluoroscopic guided lumbar puncture. Assessment and Plan - Diagnosis (1) Sepsis Qualifiers: Sepsis type: sepsis due to unspecified organism Sepsis acute organ dysfunction status: with acute organ dysfunction Severe sepsis acute organ dysfunction type: encephalopathy Severe sepsis shock status: without septic shock Qualified Code(s): A41.9 - Sepsis, unspecified organism; R65.20 - Severe sepsis without septic shock; G93.40 - Encephalopathy, unspecified Is this a current diagnosis for this admission?: Yes (2) Diabetic keto-acidosis Qualifiers: Diabetes mellitus type: type 1 Diabetes mellitus complication detail: without coma Qualified Code(s): E10.10 - Type 1 diabetes mellitus with ke toacidosis without coma Is this a current diagnosis for this admission?: Yes (3) Acute metabolic encephalopathy Is this a current diagnosis for this admission?: Yes (4) High anion gap metabolic acidosis Is this a current diagnosis for this admission?: Yes (5) Enlarged kidney Is this a current diagnosis for this admission?: Yes (6) Heroin abuse Is this a current diagnosis for this admission?: Yes (7) Ulcerative colitis without complications Qualifiers: Ulcerative colitis location: unspecified ulcerative colitis location Qualified Code(s): K51.90 - Ulcerative colitis, unspecified, without complications Is this a current diagnosis for this admission?: Yes (8) Mass of lower lobe of right lung Is this a current diagnosis for this admission?: Yes (9) Injury due to hypodermic needle Is this a current diagnosis for this admission?: Yes (10) Foreign body of right upper arm Is this a current diagnosis for this admission?: Yes (11) Hypokalemia Is this a current diagnosis for this admission?: Yes (12) Central line complication Qualifiers: Encounter type: initial encounter Qualified Code(s): T82.9XXA - Unspecified complication of cardiac and vascular prosthetic device, implant and graft, initial encounter Is this a current diagnosis for this admission?: Yes (13) Hepatitis C antibody positive in blood Is this a current diagnosis for this admission?: Yes Plan: Positive hepatitis C antibody Check hepatitis C viral load RNA - Plan Summary Summary: (1) Sepsis Qualifiers: Sepsis type: sepsis due to unspecified organism Sepsis acute organ dysfunction status: with acute organ dysfunction Severe sepsis acute organ dysfunction type: encephalopathy Severe sepsis shock status: without septic shock Qualified Code(s): A41.9 - Sepsis, unspecified organism; R65.20 - Severe sepsis without septic shock; G93.40 - Encephalopathy, unspecified Is this a current diagnosis for this admission?: Yes Plan: Unclear etiology: Suspect bacteremia from infective endocarditis versus lung abscess versus meningitis/encephalitis Chest CT with contrast showed 2 cm mass in posterior right lobe concerning for malignancy Abdomen/pelvis CT showed enlarged right kidney possible pyelonephritis although UA is not infected Possible bacteremia from multiple scabbed skin wounds consistent with IV drug abuse Vancomycin/cefepime/acyclovir discontinued on 05/23 per ID Blood cultures growing staph aureus 2/2 bottles Chest x-ray showed right middle lobe opacity of unclear etiology Echocardiogram showed normal cardiac function, negative for vegetations, mild pulmonary hypertension BABAK and lumbar puncture delayed due to elevated INR and small mediastinal hemorrhage from CVL Right arm foreign body removal of needle delayed ID consulted: Recommended stopping vancomycin/acyclovir/cefepime and replacing these with nafcillin LP completed 05/24: Elevated glucose and protein, WBC count of 7 predominantly monocytes (2) Diabetic keto-acidosis Qualifiers: Diabetes mellitus type: type 1 Diabetes mellitus complication detail: without coma Qualified Code(s): E10.10 - Type 1 diabetes mellitus with ketoacidosis without coma Is this a current diagnosis for this admission?: Yes Plan: Likely precipitated by sepsis, treatment as above Insulin drip started, transition to subcutaneous Lantus and sliding scale insulin IV fluids, LR initially then changed to D5 normal saline with 20 of potassium once blood sugar is below 250 mg/dL Trend BMP Needs follow-up with endocrinology outpatient ABG unable to be done due to multiple blood draw problems Resolved (3) Acute metabolic encephalopathy Is this a current diagnosis for this admission?: Yes Plan: Due to sepsis and DKA Treatment as above CT head with no acute findings (4) High anion gap metabolic acidosis Is this a current diagnosis for this admission?: Yes Plan: Treat DKA and sepsis Trend BMP Resolved (5) Enlarged kidney Is this a current diagnosis for this admission?: Yes Plan: Unclear etiology Renal ultrasound showed possible mild hydronephrosis versus extrarenal pelvis (6) Heroin abuse Is this a current diagnosis for this admission?: Yes Plan: UDS negative but multiple skin wounds consistent with drug abuse HIV negative Hepatitis C antibody positive, checking viral load (7) Ulcerative colitis without complications Qualifiers: Ulcerative colitis location: unspecified ulcerative colitis location Qualified Code(s): K51.90 - Ulcerative colitis, unspecified, without complications Is this a current diagnosis for this admission?: Yes Plan: Unclear if patient is on any treatment for this (8) Mass of lower lobe of right lung Is this a current diagnosis for this admission?: Yes Needs biopsy Consulted pulmonology for their opinion on approach for biopsy (9) Injury due to hypodermic needle Is this a current diagnosis for this admission?: Yes Plan: Previous broken needle implanted in the right forearm near elbow/humerus General surgery consulted for removal (10) Foreign body of right upper arm Is this a current diagnosis for this admission?: Yes Plan: 05/22/2020 General surgery consulted: Planning to hold off on needle removal for now due to CVL complication Per general surgery: "Cancel plans for foreign body removal right arm until the above tasks complete. We will continue to follow patient with you." (11) Hypokalemia Is this a current diagnosis for this admission?: Yes (12) Central line complication Qualifiers: Encounter type: initial encounter Qualified Code(s): T82.9XXA - Unspecified complication of cardiac and vascular prosthetic device, implant and graft, initial encounter Is this a current diagnosis for this admission?: Yes Plan: Possibly due to patient agitation, small mediastinal hemorrhage noted on CT scan Discussed with nursing we can use additional sedating medications whenever needed to maintain a controlled environment if the patient has procedures planned - Time Time Spent with patient: 35 or more minutes Medications reviewed and adjusted accordingly: Yes Anticipated Discharge Disposition: Tertiary Anticipated Discharge Timeframe: within 72 hours - Inpatient Certification Based on my medical assessment, after consideration of the patient's comorbidit ies, presenting symptoms, or acuity I expect that the services needed warrant INPATIENT care.: Yes I certify that my determination is in accordance with my understanding of Me kaley's requirements for reasonable and necessary INPATIENT services [42 CFR 412.3e].: Yes Medical Necessity: Significant Comorbidiites Make Outpatient Treatment Too Risky, Need Close Monitoring Due to Risk of Patient Decompensation, Need for IV Antibiotics, Need for Surgery, Risk of Complication if Not Cared For in Hospital, Risk of Diagnosis Which Will Require Inpatient Eval/Care/Monitoring
[2020-05-24] MEDS ORDERED: ACYCLOVIR SODIUM INJ/PF 500 MG/10 ML SDV IV PRN (18:00)
[2020-05-24] MEDS ORDERED: ACYCLOVIR SODIUM INJ/PF 500 MG/10 ML SDV IV SCH (22:00)
[2020-05-24] MEDS: THIAMINE HCL 100 MG in NORMAL SALINE 50 ML IV SCH (22:12)
[2020-05-24] MEDS: ACYCLOVIR SODIUM 700 MG in NORMAL SALINE 100 ML IV SCH (22:50)
[2020-05-24] MEDS ORDERED: ACYCLOVIR SODIUM INJ/PF 500 MG/10 ML SDV IV ONE ×2 (23:38→23:44)
--- NOTE | 2020-05-25 00:10 | RADIOLOGY REPORT (SQ) ---
EXAM DESCRIPTION: XR CHEST 1 VIEW COMPLETED DATE/TME: 05/24/2020 00:00 CLINICAL INDICATION: 35-year-old female status post NG tube placement. TECHNIQUE: Single view, AP portable chest was obtained. COMPARISON: 05/23/2020. FINDINGS: Nonspecific prominence in the superior mediastinum again noted. Further evaluation with CT chest is recommended. Heart size is normal. Lungs are clear without focal opacity, pneumothorax or pleural effusions. The visualized bones are within normal limits. Enteric tube terminates at the level of the gastric antrum. IMPRESSION: 1. Stable aeration with nonspecific prominence of the superior mediastinum. Further evaluation with CT chest is recommended. 2. Enteric tube terminates at the level of the gastric antrum.
[2020-05-25] MEDS: INSULIN REG, HUMAN 100 UNIT/ML 3 ML VIAL (PYX) SUBCUT SCH ×5 (00:22→21:55)
[2020-05-25] MEDS: LORAZEPAM INJ 2 MG/1 ML VIAL IV PRN ×2 (00:43→14:12)
[2020-05-25] MEDS: NAFCILLIN SODIUM 2 GM in DEXTROSE 5%-WATER 100 ML IV SCH ×6 (02:00→21:57)
[2020-05-25] MEDS: ACYCLOVIR SODIUM 700 MG in NORMAL SALINE 100 ML IV SCH ×3 (05:38→22:45)
[2020-05-25] MEDS ORDERED: INSULIN GLARGINE,HUM.REC.ANLOG 1,000 UNIT/10 ML VIAL SUBCUT SCH (10:00)
[2020-05-25] MEDS: POTASSIUM CHLORIDE 20 MEQ PACKET NG SCH ×2 (12:07→21:55)
[2020-05-25] MEDS: OLANZAPINE 5 MG TABLET NG SCH (12:07)
[2020-05-25] MEDS: DOCUSATE SODIUM 100 MG CAPSULE PO SCH (12:17)
[2020-05-25 13:28] LABS: HEMATOCRIT 28.2 % (36.0-47.0); HEMOGLOBIN 9.7 g/dL (12.0-15.5); MEAN CORPUSCULAR HGB CONC 34.4 g/dL (32.0-36.0); MEAN CORPUSCULAR VOLUME 87 fl (80-97); PLATELET COUNT 282 10^3/uL (150-450); RED BLOOD COUNT 3.24 10^6/uL (3.72-5.28); RED CELL DISTRIBUTION WIDTH 14.4 % (11.5-14.0); WHITE BLOOD COUNT 7.2 10^3/uL (4.0-10.5)
[2020-05-25 13:38] LABS: ANION GAP 9 (5-19); BLOOD UREA NITROGEN 12 mg/dL (7-20); CALCIUM 8.4 mg/dL (8.4-10.2); CARBON DIOXIDE 29 mmol/L (22-30); CHLORIDE 105 mmol/L (98-107); GLUCOSE 286 mg/dL (75-110); POTASSIUM 3.7 mmol/L (3.6-5.0)
[2020-05-25 13:57] LABS: ABSOLUTE LYMPHOCYTES# (MANUAL) 2.4 10^3/uL (0.5-4.7); ABSOLUTE MONOCYTES # (MANUAL) 0.3 10^3/uL (0.1-1.4); BASOPHILS % (MANUAL) 1 % (0-2); EOSINOPHILS % (MANUAL) 0 % (0-6); LYMPHOCYTES % (MANUAL) 34 % (13-45); METAMYELOCYTES % (MANUAL) 1 % (0-1); MONOCYTES % (MANUAL) 4 % (3-13); SEGMENTED NEUTROPHILS % (MAN) 60 % (42-78); TOTAL CELLS COUNTED 100
[2020-05-25 13:58] LABS: ANISOCYTOSIS SLIGHT; PLATELET COMMENT ADEQUATE
[2020-05-25] MEDS ORDERED: INSULIN GLARGINE,HUM.REC.ANLOG 1,000 UNIT/10 ML VIAL SUBCUT ONE (14:03)
--- NOTE | 2020-05-25 14:26 | PDOC PROGRESS REPORT ---
Subjective Subjective:: ИВАН MONTELONGO is a 35 year old female with past medical history significant for IV drug abuse, diabetes, ulcerative colitis, chronic pain who presents to the ED via EMS after her parents called 911 due to the patient having confusion and combativeness. Patient was brought to ED and started on IV fluids. CT of abdomen/pelvis showed enlarged edematous right kidney possible pyelonephritis although UA was not consistent with infection. No hydronephrosis. UA did show massive amount of glucose as well as ketones. Patient has multiple small wounds on her upper extremities consistent with possible injection sites and small areas of potential cellulitis. Reportedly, patient has been off IV drugs which is not consistent with physical exam findings. History cannot be obtained by the patient as she is confused and I have tried many times to contact her family via the phone numbers in the chart and they do not answer the phone or return my calls. History obtained solely from the chart and ED personnel. Head CT showed no acute findings. Chest x-ray showed a subtle ovoid groundglass opacity in the right middle lung infectious or inflammatory. CT chest was not obtained in ED and I have ordered a CT chest to evaluate this possible lung infarction or lung abscess which could have been implanted from IV drug abuse. IV fluids started. Patient became confused and combative and pulled out her IV and she was put in restraints. She is oriented only to herself on admission. Labs are remarkable for a gap acidosis and a blood sugar of 417. She was not yet started on insulin drip. I requested that the ED start this promptly during my initial discussion with attending physician. Patient's troponin is mildly elevated and this is trending. Suspect infected endocarditis as a source of patient's DKA. Echocardiogram ordered. Vancomycin and cefepime started. Blood cultures pending. 05/20/2020 Patient still confused and combative at times. IV Ativan as needed being given intermittently. Per nursing, patient twisted her arm and then was complaining of it hurting. We will get an x-ray to look at her right wrist. Fever has resolved, troponin flat, lipase normal, ammonia negative. A1c is 10. Low phosphorus and elevated lactic acid. Blood cultures growing staph aureus in both bottles. Covid testing is pending. Blood sugar is dropped to an acceptable level. CT chest shows a suspicious mass and I will discuss getting a biopsy with her family. I suspect may be an abscess rather than malignancy but radiologist report states it is very suspicious for malignancy. I have also ordered a lumbar puncture with appropriate labs. Echocardiogram has been done but not read yet. Clinical picture seems consistent with infectious endocarditis with sepsis. 05/21/2020 Patient's mentation has not improved in any meaningful way. She continues to answer almost all questions with her birthdate. White blood cell count is trending down, blood sugar is now in the mid 200s and we have restarted subcutaneous insulin. Blood cultures are now growing MSSA in both bottles and patient is continued on broad-spectrum antibiotics for now. Echocardiogram showed normal cardiac function with mild pulmonary hypertension and no vegetations. Lumbar puncture has been delayed due to INR being approximately 1.6 and the radiologist would like it at 1.5 or below. Patient was given vitamin K today and recheck of INR is actually higher. Patient has no signs of bleeding. PICC line will be placed today. MRI brain ordered however according to patient's mother she has a broken needle in her right arm. I have consulted general surgery to remove this broken needle given that per the x-rays it seems to be rather superficial. We will wait to see what they think about removing it. Antibiotics continue. BABAK ordered. Right wrist x-ray did not show any fractures. Patient remains in restraints for her own safety. Covid is negative. She should be moved to a general IMCU bed as soon as possible. 05/22/2020 Patient's mentation does not seem to be any improved today. She is still requiring restraints to protect her lines. We will drop an NG tube today and start tube feeds that she has had no nutrition for the past 2 days. Central line was put in yesterday by general surgery and due to patient agitation and movement, seems to have a small mediastinal hemorrhage according to general surg sherman whom I spoke with today. They recommended holding on any procedures today and having these done tomorrow instead. I also recommended stopping all blood thinners for the time being. We will get a dry CT head in the meantime. General surgery is also unable to remove the broken needle in the patient's right arm in order to get her an MRI due to anesthesia concerns about electrolytes given that the patient has a potassium of 3.2. I discussed with them the notion of correcting the electrolytes and readdressing, but since we have learned about the CVL complication, we will hold off on all procedures until tomorrow. LP and BABAK will also be delayed because of this. Antibiotics continue. Now the patient is off of insulin drip, we will switch her fluids to LR given that she is developing hypernatremia. Once she has tube feeding and free water running through an NG tube, we could potentially stop IV fluids altogether. On the right side, INR is lower at 1.28 which would allow any of the above procedures if we were actually able to do them today. I called the patient's mother yesterday and gave her a very detailed extensive update on the many diagnostic tests and treatments we are providing to the patient. We spoke for at least 30 to 45 minutes total. Apparently, Ms. Noonan had her cell phone set to ignore outside phone calls automatically and she states this feature is been turned off so that I can communicate with her when needed. 05/23/2020 We will be trying to get the patient an LP today. I have added Zyprexa and instructed the nurse to give her an extra dose of 2 mg Ativan prior to going down for this procedure. If needed, we can give additional sedation on top of this. It is imperative that we get this lumbar puncture today. This procedure has been ordered for the past few days and was not able to be done due to the vascular complication of the central line placement and also the patient's severe agitation during the attempted procedure. ID consult note has been done although it seems that they have not noticed the patient has already had an echocardiogram 3 days ago and I am actually trying to arrange a BABAK given that the TTE did not show endocarditis. We have had multiple attempts at getting an LP and will try again today. I am available to discuss the case with them anytime if they need help interpreting the plan. They recommended stopping vancomycin and cefepime and acyclovir, start nafcillin. I spoke with Dr. Knutson myself today and clarified the current results and the plan going forward. I was not sure what he meant by working up the patient's shoulder or which shoulder it might be and he states this was simply part of his discussion with the pharmacist and he was not sure of it either. I spoke with the patient's father today and gave him an update as well. HIV negative. Hepatitis panel pending. Temperature is a bit higher to 100.1 today. We still need to get an LP, foreign body needle removed, MRI brain. 05/24/2020 Lumbar puncture done today and initial CSF results show high white blood cells with a mononuclear predominance, high glucose and high protein. Appears it could be consistent with a viral encephalitis. Cultures have been sent and are pending. I will restart acyclovir IV for the time being. This will continue until we get finalized CSF culture results. I had a long discussion with the patient's daughter and sister over the phone today. I answered many questions. The next step in the patient's treatment will be to get a BABAK hopefully on Tuesday. We need to confirm a valvular vegetation and potentially move forward with CT surgery consult at an outside hospital if this is confirmed. Patient is perhaps a bit more alert today and states the date is 2019 and she is at [facility]. She also recognizes her daughter. She continues to keep her eyes closed for most the day. Potassiums low we will replete this. Blood sugar is still high and I have increased her Lantus. 05/25/2020 Patient is now awake and alert much more so than she has been throughout this entire admission. She is oriented to herself, place, disposition and she knows that the date is 2019 but is unsure about the rest of the date. Per nursing, patient requested to be removed from restraints and was able to calmly drink a glass of apple juice without coughing or choking a single time. After a few hours however, patient became agitated and attempted to get out of her bed and reportedly fell and potentially hit her head. We will get an MRI of her brain which radiology and general surgery have both stated is safe despite the fact she has a hypodermic needle in her right arm. They do not believe this metal is ferromagnetic and would move during a simple MRI of the brain. Patient's mother is at bedside trying to calm her down. Latest blood cultures are negative. I dug far back into her admission history in the EMR and found that the patient had a previous episode of what was presumed to be viral meningitis in 2010, interestingly she was admitted to the OB service at that time. That episode per the chart seem to be much less severe than the current 1 and the patient was discharged in stable condition when this resolved. CSF results here seem consistent with potential viral meningitis/encephalitis rather than a bacterial source. Patient will regardless need BABAK tomorrow. She is very high risk for IE and we will continue treating as such. Since I found the records from 2010, I have restarted the patient's IV acyclovir to treat possible underlying viral meningitis/encephalitis. Reason For Visit: ACUTE METABOLIC ENCEPHALOPATHY Physical Exam Vital Signs: Temp Pulse Resp BP Pulse Ox 99.2 F 97 13 117/77 97 05/25/20 10:00 05/25/20 08:29 05/25/20 08:29 05/25/20 08:29 05/25/20 08:29 Intake & Output 05/24/20 05/25/20 05/26/20 06:59 06:59 06:59 Intake Total 2194 1000 Balance 2194 1000 Weight 61.6 kg 65.4 kg Exam: General appearance: PRESENT: No acute distress, well-nourished, well-developed, speak relatively clearly and responding appropriately to questions Head exam: PRESENT: atraumatic, normocephalic Eye exam: PRESENT: conjunctiva pink. ABSENT: scleral icterus Mouth exam: PRESENT: Dry Respiratory exam: PRESENT: clear to auscultation brandon. ABSENT: rales, rhonchi, wheezes Cardiovascular exam: PRESENT: RRR. ABSENT: diastolic murmur, rubs, systolic murmur GI/Abdominal exam: PRESENT: normal bowel sounds, soft. ABSENT: distended, guarding, mass, organolmegaly, rebound, tenderness Neurological exam: PRESENT: Awake and alert, oriented to person and place and disposition and knows it is 2020 Psychiatric exam: PRESENT: Intermittently agitated Skin exam: PRESENT: dry, intact, warm; multiple healing scabbed wounds on upper extremities Results Laboratory Results: 05/25/20 12:30 05/25/20 12:30 05/25/20 05/25/20 12:30 12:30 WBC 7.2 RBC 3.24 L Hgb 9.7 L Hct 28.2 L MCV 87 MCH 30.0 MCHC 34.4 RDW 14.4 H Plt Count 282 Seg Neutrophils % Not Reportable Sodium 142.5 Potassium 3.7 Chloride 105 Carbon Dioxide 29 Anion Gap 9 BUN 12 Creatinine 0.48 L Est GFR ( Amer) > 60 Glucose 286 H Calcium 8.4 05/19/20 05/19/20 05/20/20 11:56 20:15 03:12 Troponin I 0.026 0.041 0.046 Impressions: Renal Ultrasound 05/19/20 00:00 IMPRESSION: There is fullness of the right renal pelvis which may represent an extrarenal pelvis or mild hydronephrosis. Abdomen/Pelvis CT 05/19/20 12:06 IMPRESSION: 1. Asymmetrically enlarged, likely edematous, right kidney suggestive of pyelonephritis. Recommend correlation with UA. No hydronephrosis. 2. No evidence of acute intra-abdominal/pelvic process. Normal appendix. 3. Moderate formed stool throughout the colon. Wrist X-Ray 05/20/20 00:00 IMPRESSION: NEGATIVE STUDY OF THE RIGHT WRIST. NO RADIOGRAPHIC EVIDENCE OF ACUT E INJURY. Forearm X-Ray 05/21/20 00:00 IMPRESSION: 7 mm needle fragment in the antecubital fossa soft tissues Hand X-Ray 05/21/20 00:00 IMPRESSION: No radiopaque foreign body identified Humerus X-Ray 05/21/20 00:00 IMPRESSION: 7 mm needle fragment in the antecubital fossa soft tissues Chest CT 05/22/20 00:00 IMPRESSION: Right central line terminates within the right atrium. Mediastinal widening demonstrated on comparison radiographs correlates to a homogeneous collection favored to be on the basis of a hematoma. No demonstrated contrast collection after fluoroscopic evaluation of line patency and position. Fluoroscopy 05/22/20 00:00 IMPRESSION: FLUOROSCOPIC EVALUATION OF INDWELLING CENTRAL CATHETER, WITHOUT EVIDENCE FOR COMPLICATION OR EXTRAVASATION. Head CT 05/22/20 00:00 IMPRESSION: Very limited study. No bleed or mass. Subtle decreased attenuation in the right posterior frontal and parietal lobe cannot be excluded as discussed above. EVIDENCE OF ACUTE STROKE: NO. KUB X-Ray 05/23/20 00:00 IMPRESSION: NG tube tip in the upper stomach. Chest X-Ray 05/24/20 00:00 IMPRESSION: 1. Stable aeration with nonspecific prominence of the superior mediastinum. Further evaluation with CT chest is recommended. 2. Enteric tube terminates at the level of the gastric antrum. Lumbar Puncture 05/24/20 00:00 IMPRESSION: Successful fluoroscopic guided lumbar puncture. Assessment and Plan - Diagnosis (1) Sepsis Qualifiers: Sepsis type: sepsis due to unspecified organism Sepsis acute organ dysfunction status: with acute organ dysfunction Severe sepsis acute organ dysfunction type: encephalopathy Severe sepsis shock status: without septic shock Qualified Code(s): A41.9 - Sepsis, unspecified organism; R65.20 - Severe sepsis without septic shock; G93.40 - Encephalopathy, unspecified Is this a current diagnosis for this admission?: Yes (2) Diabetic keto-acidosis Qualifiers: Diabetes mellitus type: type 1 Diabetes mellitus complication detail: without coma Qualified Code(s): E10.10 - Type 1 diabetes mellitus with ketoacidosis without coma Is this a current diagnosis for this admission?: Yes (3) Acute metabolic encephalopathy Is this a current diagnosis for this admission?: Yes (4) High anion gap metabolic acidosis Is this a current diagnosis for this admission?: Yes (5) Enlarged kidney Is this a current diagnosis for this admission?: Yes (6) Heroin abuse Is this a current diagnosis for this admission?: Yes (7) Ulcerative colitis without complications Qualifiers: Ulcerative colitis location: unspecified ulcerative colitis location Qualified Code(s): K51.90 - Ulcerative colitis, unspecified, without compli cations Is this a current diagnosis for this admission?: Yes (8) Mass of lower lobe of right lung Is this a current diagnosis for this admission?: Yes (9) Injury due to hypodermic needle Is this a current diagnosis for this admission?: Yes (10) Foreign body of right upper arm Is this a current diagnosis for this admission?: Yes (11) Hypokalemia Is this a current diagnosis for this admission?: Yes (12) Central line complication Qualifiers: Encounter type: initial encounter Qualified Code(s): T82.9XXA - Unspecified complication of cardiac and vascular prosthetic device, implant and graft, initial encounter Is this a current diagnosis for this admission?: Yes (13) Hepatitis C antibody positive in blood Is this a current diagnosis for this admission?: Yes - Plan Summary Summary: (1) Sepsis Qualifiers: Sepsis type: sepsis due to unspecified organism Sepsis acute organ dysfunction status: with acute organ dysfunction Severe sepsis acute organ dysfunction type: encephalopathy Severe sepsis shock status: without septic shock Qualified Code(s): A41.9 - Sepsis, unspecified organism; R65.20 - Severe sepsis without septic shock; G93.40 - Encephalopathy, unspecified Is this a current diagnosis for this admission?: Yes Plan: Unclear etiology: Suspect bacteremia from infective endocarditis versus lung abscess versus meningitis/encephalitis Chest CT with contrast showed 2 cm mass in posterior right lobe concerning for malignancy Abdomen/pelvis CT showed enlarged right kidney possible pyelonephritis although UA is not infected Possible bacteremia from multiple scabbed skin wounds consistent with IV drug abuse Vancomycin/cefepime/acyclovir discontinued on 05/23 per ID Blood cultures growing staph aureus 2/2 bottles Chest x-ray showed right middle lobe opacity of unclear etiology Echocardiogram showed normal cardiac function, negative for vegetations, mild pulmonary hypertension BABAK and lumbar puncture delayed due to elevated INR and small mediastinal hemorrhage from CVL Right arm foreign body removal of needle delayed ID consulted: Recommended stopping vancomycin/acyclovir/cefepime and replacing these with nafcillin LP completed 05/24: Elevated glucose and protein, WBC count of 7 predominantly monocytes; consistent with viral encephalitis Per records, patient has had viral encephalitis in 2010 as well, treated successfully discharged at that time MRI brain pending; according to general surgery and radiology, patient can safely have this done despite having a hypodermic needle in her right arm (2) Diabetic keto-acidosis Qualifiers: Diabetes mellitus type: type 1 Diabetes mellitus complication detail: without coma Qualified Code(s): E10.10 - Type 1 diabetes mellitus with ketoacidosis without coma Is this a current diagnosis for this admission?: Yes Plan: Likely precipitated by sepsis, treatment as above Insulin drip started, later transitioned to subcutaneous Lantus and sliding scale insulin IV fluids, LR initially then changed to D5 normal saline with 20 of potassium once blood sugar is below 250 mg/dL Trend BMP Needs follow-up with endocrinology outpatient ABG unable to be done due to multiple blood draw problems Resolved (3) Acute metabolic encephalopathy Is this a current diagnosis for this admission?: Yes Plan: Due to sepsis and DKA Treatment as above CT head with no acute findings Significant improvement seen on 05/25 (4) High anion gap metabolic acidosis Is this a current diagnosis for this admission?: Yes Plan: Treat DKA and sepsis Trend BMP Resolved (5) Enlarged kidney Is this a current diagnosis for this admission?: Yes Plan: Unclear etiology Renal ultrasound showed possible mild hydronephrosis versus extrarenal pelvis (6) Heroin abuse Is this a current diagnosis for this admission?: Yes Plan: UDS negative but multiple skin wounds consistent with drug abuse HIV negative Hepatitis C antibody positive, checking viral load (7) Ulcerative colitis without complications Qualifiers: Ulcerative colitis location: unspecified ulcerative colitis location Qualified Code(s): K51.90 - Ulcerative colitis, unspecified, without complica tions Is this a current diagnosis for this admission?: Yes Plan: Unclear if patient is on any treatment for this (8) Mass of lower lobe of right lung Is this a current diagnosis for this admission?: Yes Needs biopsy Consulted pulmonology for their opinion on approach for biopsy (9) Injury due to hypodermic needle Is this a current diagnosis for this admission?: Yes Plan: Previous broken needle implanted in the right forearm near elbow/humerus General surgery consulted for removal (10) Foreign body of right upper arm Is this a current diagnosis for this admission?: Yes Plan: 05/22/2020 General surgery consulted: Planning to hold off on needle removal for now due to CVL complication Per general surgery: "Cancel plans for foreign body removal right arm until the above tasks complete. We will continue to follow patient with you." (11) Hypokalemia Is this a current diagnosis for this admission?: Yes (12) Central line complication Qualifiers: Encounter type: initial encounter Qualified Code(s): T82.9XXA - Unspecified complication of cardiac and vascular prosthetic device, implant and graft, initial encounter Is this a current diagnosis for this admission?: Yes Plan: Possibly due to patient agitation, small mediastinal hemorrhage noted on CT scan Discussed with nursing we can use additional sedating medications whenever needed to maintain a controlled environment if the patient has procedures planned (13) Hepatitis C antibody positive in blood Is this a current diagnosis for this admission?: Yes Plan: Positive hepatitis C antibody Check hepatitis C viral load RNA, pending - Time Time Spent with patient: 35 or more minutes Medications reviewed and adjusted accordingly: Yes Anticipated Discharge Disposition: Home with Home Health Anticipated Discharge Timeframe: within 72 hours - Inpatient Certification Based on my medical assessment, after consideration of the patient's comorbidities, presenting symptoms, or acuity I expect that the services needed warrant INPATIENT care.: Yes I certify that my determination is in accordance with my understanding of Medicare's requirements for reasonable and necessary INPATIENT services [42 CFR 412.3e].: Yes Medical Necessity: Significant Comorbidiites Make Outpatient Treatment Too Risky, Need Close Monitoring Due to Risk of Patient Decompensation, Need for IV Antibiotics, Risk of Complication if Not Cared For in Hospital, Risk of Diagnosis Which Will Require Inpatient Eval/Care/Monitoring
[2020-05-25] MEDS ORDERED: INSULIN GLARGINE,HUM.REC.ANLOG 1,000 UNIT/10 ML VIAL (PYX) SUBCUT ONE (15:00)
--- NOTE | 2020-05-25 16:09 | RADIOLOGY REPORT (SQ) ---
EXAM DESCRIPTION: MRI HEAD WITHOUT IMAGES COMPLETED DATE/TIME: 05/25/2020 3:32 pm REASON FOR STUDY: fall onto head, AMS, encephalitis COMPARISON: CT scan TECHNIQUE: Multiplanar imaging includes non-contrasted T1, T2, FLAIR, and diffusion with ADC map seq uences. Images stored on PACS. LIMITATIONS: Incomplete study. Marked motion artifact on the scan. FINDINGS: ANATOMY: Incomplete study. CSF SPACES: Normal in size and contour. No hemorrhage. CEREBRUM: Incomplete study. Areas of signal alteration on FLAIR imaging in the right hemisphere. Li scott similar on T2 weighted images but there is marked motion. POSTERIOR FOSSA: No signal alteration. No hemorrhage. No edema, masses or mass effect. Internal lillian tory canals, cerebello-pontine angles, mastoids normal. DIFFUSION IMAGING: Multiple areas of restricted diffusion bilateral. None noted in the posterior fos sa. ORBITS: No masses. Globes normal. PARANASAL SINUSES: No fluid levels. Mucosa normal. OTHER: No other significant finding. IMPRESSION: Extremely limited study. There are however multiple areas of restricted diffusion bilat eral indicating infarcts from the embolic phenomena. EVIDENCE OF ACUTE STROKE: Yes embolic COMMENT: The findings were sent to the Radiology Results Communication Center at 16:02 on 05/25/2020 to be communicated to a licensed caregiver. TECHNICAL DOCUMENTATION: JOB ID: [id number] 2010 [employer]- All Rights Reserved Reading location - IP/workstation name: [email or web address]
[2020-05-25] MEDS: ACETAMINOPHEN 325 MG TABLET NG PRN (19:53)
[2020-05-25] MEDS ORDERED: GLUCAGON,HUMAN RECOMB 1 MG INJ IM PRN (20:00)
[2020-05-25] MEDS ORDERED: DEXTROSE 40% GEL 15 GM TUBE PO PRN (20:00)
[2020-05-25] MEDS ORDERED: DEXTROSE 40% GEL 15 GM TUBE X 2 PO PRN (20:00)
[2020-05-25] MEDS ORDERED: DEXTROSE 50%-WATER SYRINGE 12.5 GM/25 ML DOSE IV PRN (20:00)
[2020-05-25] MEDS ORDERED: DEXTROSE 50%-WATER SYRINGE 25 GM/50 ML DOSE IV PRN (20:00)
[2020-05-25] MEDS: THIAMINE HCL 100 MG in NORMAL SALINE 50 ML IV SCH (22:31)
[2020-05-26] MEDS: NAFCILLIN SODIUM 2 GM in DEXTROSE 5%-WATER 100 ML IV SCH ×6 (02:29→22:10)
[2020-05-26] MEDS: ACYCLOVIR SODIUM 700 MG in NORMAL SALINE 100 ML IV SCH ×3 (05:23→21:21)
[2020-05-26] MEDS: LORAZEPAM INJ 2 MG/1 ML VIAL IV PRN (05:55)
[2020-05-26 08:19] LABS: ABSOLUTE BASOPHILS # (AUTO) 0.1 10^3/uL (0.0-0.2); ABSOLUTE EOSINOPHILS # (AUTO) 0.2 10^3/uL (0.0-0.6); ABSOLUTE LYMPHOCYTES (AUTO) 2.6 10^3/uL (0.5-4.7); ABSOLUTE MONOCYTES (AUTO) 0.8 10^3/uL (0.1-1.4); BASOPHILS % (AUTO) 0.4 % (0-2); EOSINOPHILS % (AUTO) 1.5 % (0-6); HEMATOCRIT 27.7 % (36.0-47.0); HEMOGLOBIN 9.4 g/dL (12.0-15.5); LYMPHOCYTES % (AUTO) 20.4 % (13-45); MEAN CORPUSCULAR HEMOGLOBIN 29.3 pg (27.0-33.4); MEAN CORPUSCULAR HGB CONC 33.7 g/dL (32.0-36.0); MEAN CORPUSCULAR VOLUME 87 fl (80-97); MONOCYTES % (AUTO) 6.1 % (3-13); PLATELET COUNT 302 10^3/uL (150-450); RED CELL DISTRIBUTION WIDTH 14.5 % (11.5-14.0); SEGMENTED NEUTROPHILS % (AUTO) 71.6 % (42-78); TOTAL CELLS COUNTED % (AUTO) 100 %; WHITE BLOOD COUNT 12.5 10^3/uL (4.0-10.5)
[2020-05-26] MEDS: INSULIN REG, HUMAN 100 UNIT/ML 3 ML VIAL (PYX) SUBCUT SCH ×4 (08:24→22:10)
[2020-05-26 08:38] LABS: ANION GAP 8 (5-19); BLOOD UREA NITROGEN 9 mg/dL (7-20); CARBON DIOXIDE 28 mmol/L (22-30); CHLORIDE 102 mmol/L (98-107); GLUCOSE 167 mg/dL (75-110); POTASSIUM 3.5 mmol/L (3.6-5.0)
[2020-05-26] MEDS: INSULIN GLARGINE,HUM.REC.ANLOG 1,000 UNIT/10 ML VIAL SUBCUT SCH (09:54)
[2020-05-26] MEDS: OLANZAPINE 5 MG TABLET NG SCH (09:54)
[2020-05-26] MEDS: POTASSIUM CHLORIDE 20 MEQ PACKET NG SCH (09:54)
[2020-05-26] MEDS: DOCUSATE SODIUM 100 MG CAPSULE PO SCH (09:54)
--- NOTE | 2020-05-26 14:15 | Progress Note ---
Provider Note Provider Note: [facility] infectious disease follow-up: I have reviewed this patient's chart thoroughly as well as the previous consultation by my colleague Dr. Naun Knutson. Patient is a 35-year-old female with a history of injection drug use who presented with altered mental status and sepsis and was found to have high-grade MSSA bacteremia. There is a foreign body needle in her right wrist. CT chest was consistent with a septic embolus to the right lobe. TTE was completed that did not confirm a tricuspid valve vegetation, but could not exclude an aortic valve vegetation. She has subsequently had an MRI of her brain which was limited by motion but does demonstrate several areas concerning for embolic infarctions. Due to her altered mental status she underwent a lumbar puncture which revealed very slight pleocytosis with 7 WBCs, elevated glucose, and elevated protein at 102. Her blood cultures have cleared as of 05/23. She continues to spike fevers but her white count has trended down to 12.5. According to the chart her mental status is improving. Assessment/recommendations: 1. High-grade MSSA bacteremia 2. What is likely to be a septic embolus to her right lung---given negative TTE she may have a deep septic thrombophlebitis elsewhere that would explain this pulmonary finding. I would start with an ultrasound of her right arm given the description in the chart, to exclude a deep thrombus/thrombophlebitis, but there may also be pelvic involvement given her swollen edematous kidney. 3. Altered mental status-concerning for septic emboli. This would imply left- sided endocarditis and a CT surgical consultation will be needed if present, although she is unlikely to be a candidate for surgery given her social circumstances as well as her [employer] findings. Her CSF findings are not unexpected given what is likely to be septic emboli to her brain. -BABAK -Continue nafcillin 12 g/day continuous infusion -Please discontinue acyclovir as this is not consistent with herpes encephalitis and is explained by MSSA septic emboli to the brain. -If patient is complaining of focal back pain she will need this imaged with an MRI of the area of concern. -Patient will need 6 weeks of nafcillin from the date of blood culture clearance, but will need better imaging of her brain to ensure there are no [employer] abscesses that may require a longer duration of therapy. In this situation cefazolin would be inferior to nafcillin and every effort should be made to continue therapy with nafcillin for the entire duration given poor [employer] penetration of cefazolin. -Her ongoing fevers are likely related to endovascular infection, but would repeat CT of her chest abdomen and pelvis in the next 72 hours should the fevers continue to assess for splenic, hepatic, and renal abscesses.
[2020-05-26] MEDS: ACETAMINOPHEN 325 MG TABLET NG PRN ×2 (14:48→21:18)
--- NOTE | 2020-05-26 17:35 | PDOC PROGRESS REPORT ---
Subjective Subjective:: ИВАН MONTELONGO is a 35 year old female with past medical history significant for IV drug abuse, diabetes, ulcerative colitis, chronic pain who presents to the ED via EMS after her parents called 911 due to the patient having confusion and combativeness. Patient was brought to ED and started on IV fluids. CT of abdomen/pelvis showed enlarged edematous right kidney possible pyelonephritis although UA was not consistent with infection. No hydronephrosis. UA did show massive amount of glucose as well as ketones. Patient has multiple small wounds on her upper extremities consistent with possible injection sites and small areas of potential cellulitis. Reportedly, patient has been off IV drugs which is not consistent with physical exam findings. History cannot be obtained by the patient as she is confused and I have tried many times to contact her family via the phone numbers in the chart and they do not answer the phone or return my calls. History obtained solely from the chart and ED personnel. Head CT showed no acute findings. Chest x-ray showed a subtle ovoid groundglass opacity in the right middle lung infectious or inflammatory. CT chest was not obtained in ED and I have ordered a CT chest to evaluate this possible lung infarction or lung abscess which could have been implanted from IV drug abuse. IV fluids started. Patient became confused and combative and pulled out her IV and she was put in restraints. She is oriented only to herself on admission. Labs are remarkable for a gap acidosis and a blood sugar of 417. She was not yet started on insulin drip. I requested that the ED start this promptly during my initial discussion with attending physician. Patient's troponin is mildly elevated and this is trending. Suspect infected endocarditis as a source of patient's DKA. Echocardiogram ordered. Vancomycin and cefepime started. Blood cultures pending. 05/20/2020 Patient still confused and combative at times. IV Ativan as needed being given intermittently. Per nursing, patient twisted her arm and then was complaining of it hurting. We will get an x-ray to look at her right wrist. Fever has resolved, troponin flat, lipase normal, ammonia negative. A1c is 10. Low phosphorus and elevated lactic acid. Blood cultures growing staph aureus in both bottles. Covid testing is pending. Blood sugar is dropped to an acceptable level. CT chest shows a suspicious mass and I will discuss getting a biopsy with her family. I suspect may be an abscess rather than malignancy but radiologist report states it is very suspicious for malignancy. I have also ordered a lumbar puncture with appropriate labs. Echocardiogram has been done but not read yet. Clinical picture seems consistent with infectious endocarditis with sepsis. 05/21/2020 Patient's mentation has not improved in any meaningful way. She continues to answer almost all questions with her birthdate. White blood cell count is trending down, blood sugar is now in the mid 200s and we have restarted subcutaneous insulin. Blood cultures are now growing MSSA in both bottles and patient is continued on broad-spectrum antibiotics for now. Echocardiogram showed normal cardiac function with mild pulmonary hypertension and no vegetations. Lumbar puncture has been delayed due to INR being approximately 1.6 and the radiologist would like it at 1.5 or below. Patient was given vitamin K today and recheck of INR is actually higher. Patient has no signs of bleeding. PICC line will be placed today. MRI brain ordered however according to patient's mother she has a broken needle in her right arm. I have consulted general surgery to remove this broken needle given that per the x-rays it seems to be rather superficial. We will wait to see what they think about removing it. Antibiotics continue. BABAK ordered. Right wrist x-ray did not show any fractures. Patient remains in restraints for her own safety. Covid is negative. She should be moved to a general IMCU bed as soon as possible. 05/22/2020 Patient's mentation does not seem to be any improved today. She is still requiring restraints to protect her lines. We will drop an NG tube today and start tube feeds that she has had no nutrition for the past 2 days. Central line was put in yesterday by general surgery and due to patient agitation and movement, seems to have a small mediastinal hemorrhage according to general surg sherman whom I spoke with today. They recommended holding on any procedures today and having these done tomorrow instead. I also recommended stopping all blood thinners for the time being. We will get a dry CT head in the meantime. General surgery is also unable to remove the broken needle in the patient's right arm in order to get her an MRI due to anesthesia concerns about electrolytes given that the patient has a potassium of 3.2. I discussed with them the notion of correcting the electrolytes and readdressing, but since we have learned about the CVL complication, we will hold off on all procedures until tomorrow. LP and BABAK will also be delayed because of this. Antibiotics continue. Now the patient is off of insulin drip, we will switch her fluids to LR given that she is developing hypernatremia. Once she has tube feeding and free water running through an NG tube, we could potentially stop IV fluids altogether. On the right side, INR is lower at 1.28 which would allow any of the above procedures if we were actually able to do them today. I called the patient's mother yesterday and gave her a very detailed extensive update on the many diagnostic tests and treatments we are providing to the patient. We spoke for at least 30 to 45 minutes total. Apparently, Ms. Noonan had her cell phone set to ignore outside phone calls automatically and she states this feature is been turned off so that I can communicate with her when needed. 05/23/2020 We will be trying to get the patient an LP today. I have added Zyprexa and instructed the nurse to give her an extra dose of 2 mg Ativan prior to going down for this procedure. If needed, we can give additional sedation on top of this. It is imperative that we get this lumbar puncture today. This procedure has been ordered for the past few days and was not able to be done due to the vascular complication of the central line placement and also the patient's severe agitation during the attempted procedure. ID consult note has been done although it seems that they have not noticed the patient has already had an echocardiogram 3 days ago and I am actually trying to arrange a BABAK given that the TTE did not show endocarditis. We have had multiple attempts at getting an LP and will try again today. I am available to discuss the case with them anytime if they need help interpreting the plan. They recommended stopping vancomycin and cefepime and acyclovir, start nafcillin. I spoke with Dr. Knutson myself today and clarified the current results and the plan going forward. I was not sure what he meant by working up the patient's shoulder or which shoulder it might be and he states this was simply part of his discussion with the pharmacist and he was not sure of it either. I spoke with the patient's father today and gave him an update as well. HIV negative. Hepatitis panel pending. Temperature is a bit higher to 100.1 today. We still need to get an LP, foreign body needle removed, MRI brain. 05/24/2020 Lumbar puncture done today and initial CSF results show high white blood cells with a mononuclear predominance, high glucose and high protein. Appears it could be consistent with a viral encephalitis. Cultures have been sent and are pending. I will restart acyclovir IV for the time being. This will continue until we get finalized CSF culture results. I had a long discussion with the patient's daughter and sister over the phone today. I answered many questions. The next step in the patient's treatment will be to get a BABAK hopefully on Tuesday. We need to confirm a valvular vegetation and potentially move forward with CT surgery consult at an outside hospital if this is confirmed. Patient is perhaps a bit more alert today and states the date is 2019 and she is at [facility]. She also recognizes her daughter. She continues to keep her eyes closed for most the day. Potassiums low we will replete this. Blood sugar is still high and I have increased her Lantus. 05/25/2020 Patient is now awake and alert much more so than she has been throughout this entire admission. She is oriented to herself, place, disposition and she knows that the date is 2019 but is unsure about the rest of the date. Per nursing, patient requested to be removed from restraints and was able to calmly drink a glass of apple juice without coughing or choking a single time. After a few hours however, patient became agitated and attempted to get out of her bed and reportedly fell and potentially hit her head. We will get an MRI of her brain which radiology and general surgery have both stated is safe despite the fact she has a hypodermic needle in her right arm. They do not believe this metal is ferromagnetic and would move during a simple MRI of the brain. Patient's mother is at bedside trying to calm her down. Latest blood cultures are negative. I dug far back into her admission history in the EMR and found that the patient had a previous episode of what was presumed to be viral meningitis in 2010, interestingly she was admitted to the OB service at that time. That episode per the chart seem to be much less severe than the current 1 and the patient was discharged in stable condition when this resolved. CSF results here seem consistent with potential viral meningitis/encephalitis rather than a bacterial source. Patient will regardless need BABAK tomorrow. She is very high risk for IE and we will continue treating as such. Since I found the records from 2010, I have restarted the patient's IV acyclovir to treat possible underlying viral meningitis/encephalitis. 05/26/2020 This afternoon, I spoke with Dr. Mtz today regarding the BABAK and he stated this will not be able to be done here due to the BABAK machine now being broken without any clear timeline for it to be fixed. Instead the patient will need to be transferred to an outside facility to have a BABAK done. Noted ID recommendations as below. I have ordered CT chest/abdomen/pelvis with contrast as they requested. Discussed nafcillin dosing with pharmacy and they stated efficacy is the same for every 4 hour dosing versus continuous. Continuous infusion would potentially complicate the administration of other IV medications and keep the patient from participating in therapy. I expect patient will need transfer to a tertiary hospital for definitive surgical treatment of her likely infected endocarditis and now that BABAK is not an option here she may need transfer sooner than that. We will work on getting the test laid out by ID and reach out to an outside hospital to see their availability for beds. PER ID: "Assessment/recommendations: 1. High-grade MSSA bacteremia 2. What is likely to be a septic embolus to her right lung---given negative TTE she may have a deep septic thrombophlebitis elsewhere that would explain this pulmonary finding. I would start with an ultrasound of her right arm given the description in the chart, to exclude a deep thrombus/thrombophlebitis, but there may also be pelvic involvement given her swollen edematous kidney. 3. Altered mental status-concerning for septic emboli. This would imply left- sided endocarditis and a CT surgical consultation will be needed if present, although she is unlikely to be a candidate for surgery given her social circums tances as well as her [employer] findings. Her CSF findings are not unexpected given what is likely to be septic emboli to her brain. -BABAK -Continue nafcillin 12 g/day continuous infusion -Please discontinue acyclovir as this is not consistent with herpes encephalitis and is explained by MSSA septic emboli to the brain. -If patient is complaining of focal back pain she will need this imaged with an MRI of the area of concern. -Patient will need 6 weeks of nafcillin from the date of blood culture kristine charleen, but will need better imaging of her brain to ensure there are no [employer] abscesses that may require a longer duration of therapy. In this situation cefazolin would be inferior to nafcillin and every effort should be made to continue therapy with nafcillin for the entire duration given poor [employer] ST[employer] penetration of cefazolin. -Her ongoing fevers are likely related to endovascular infection, but would repeat CT of her chest abdomen and pelvis in the next 72 hours should the fevers continue to assess for splenic, hepatic, and renal abscesses." Reason For Visit: ACUTE METABOLIC ENCEPHALOPATHY Physical Exam Vital Signs: Temp Pulse Resp BP Pulse Ox 99.0 F 87 22 H 112/59 L 96 05/26/20 10:00 05/26/20 14:00 05/25/20 19:40 05/25/20 19:40 05/25/20 19:40 Intake & Output 05/25/20 05/26/20 05/27/20 06:59 06:59 06:59 Intake Total 1051 165 Balance 1051 165 Weight 65.4 kg 66.9 kg Exam: General appearance: PRESENT: No acute distress, well-nourished, well-developed, intermittently alert but seems sleepy for the most part at this time Head exam: PRESENT: atraumatic, normocephalic Eye exam: PRESENT: conjunctiva pink. ABSENT: scleral icterus Mouth exam: PRESENT: Dry Respiratory exam: PRESENT: clear to auscultation brandon. ABSENT: rales, rhonchi, wheezes Cardiovascular exam: PRESENT: RRR. ABSENT: diastolic murmur, rubs, systolic murmur GI/Abdominal exam: PRESENT: normal bowel sounds, soft. ABSENT: distended, guarding, mass, organolmegaly, rebound, tenderness Neurological exam: PRESENT: Awake and alert, oriented to person and place and disposition and knows it is 2020 Psychiatric exam: PRESENT: Intermittently agitated Skin exam: PRESENT: dry, intact, warm; multiple healing scabbed wounds on upper extremities Results Laboratory Results: 05/26/20 07:56 05/26/20 07:56 05/26/20 05/26/20 07:56 07:56 WBC 12.5 H RBC 3.20 L Hgb 9.4 L Hct 27.7 L MCV 87 MCH 29.3 MCHC 33.7 RDW 14.5 H Plt Count 302 Seg Neutrophils % 71.6 Sodium 137.7 Potassium 3.5 L Chloride 102 Carbon Dioxide 28 Anion Gap 8 BUN 9 Creatinine 0.43 L Est GFR ( Amer) > 60 Glucose 167 H Calcium 8.0 L 05/24/20 11:50 Cerebral Spinal Fluid - Csf Gram Stain - Final 05/24/20 11:50 Cerebral Spinal Fluid - Csf CSF Culture - Final NO GROWTH 3 DAYS 05/19/20 05/19/20 05/20/20 11:56 20:15 03:12 Troponin I 0.026 0.041 0.046 Impressions: Renal Ultrasound 05/19/20 00:00 IMPRESSION: There is fullness of the right renal pelvis which may represent an extrarenal pelvis or mild hydronephrosis. Abdomen/Pelvis CT 05/19/20 12:06 IMPRESSION: 1. Asymmetrically enlarged, likely edematous, right kidney suggestive of pyelonephritis. Recommend correlation with UA. No hydronephrosis. 2. No evidence of acute intra-abdominal/pelvic process. Normal appendix. 3. Moderate formed stool throughout the colon. Wrist X-Ray 05/20/20 00:00 IMPRESSION: NEGATIVE STUDY OF THE RIGHT WRIST. NO RADIOGRAPHIC EVIDENCE OF ACUTE INJURY. Forearm X-Ray 05/21/20 00:00 IMPRESSION: 7 mm needle fragment in the antecubital fossa soft tissues Hand X-Ray 05/21/20 00:00 IMPRESSION: No radiopaque foreign body identified Humerus X-Ray 05/21/20 00:00 IMPRESSION: 7 mm needle fragment in the antecubital fossa soft tissues Chest CT 05/22/20 00:00 IMPRESSION: Right central line terminates within the right atrium. Mediastinal widening demonstrated on comparison radiographs correlates to a homogeneous collection favored to be on the basis of a hematoma. No demonstrated contrast collection after fluoroscopic evaluation of line patency and position. Fluoroscopy 05/22/20 00:00 IMPRESSION: FLUOROSCOPIC EVALUATION OF INDWELLING CENTRAL CATHETER, WITHOUT EVIDENCE FOR COMPLICATION OR EXTRAVASATION. Head CT 05/22/20 00:00 IMPRESSION: Very limited study. No bleed or mass. Subtle decreased attenuation in the right posterior frontal and parietal lobe cannot be excluded as discussed above. EVIDENCE OF ACUTE STROKE: NO. KUB X-Ray 05/23/20 00:00 IMPRESSION: NG tube tip in the upper stomach. Chest X-Ray 05/24/20 00:00 IMPRESSION: 1. Stable aeration with nonspecific prominence of the superior mediastinum. Further evaluation with CT chest is recommended. 2. Enteric tube terminates at the level of the gastric antrum. Lumbar Puncture 05/24/20 00:00 IMPRESSION: Successful fluoroscopic guided lumbar puncture. Head MRI 05/25/20 00:00 IMPRESSION: Extremely limited study. There are however multiple areas of restricted diffusion bilateral indicating infarcts from the embolic phenomena. EVIDENCE OF ACUTE STROKE: Yes embolic Assessment and Plan - Diagnosis (1) Sepsis Qualifiers: Sepsis type: sepsis due to unspecified organism Sepsis acute organ dysfunction status: with acute organ dysfunction Severe sepsis acute organ dysfunction type: encephalopathy Severe sepsis shock status: without septic shock Qualified Code(s): A41.9 - Sepsis, unspecified organism; R65.20 - Severe sepsis without septic shock; G93.40 - Encephalopathy, unspecified Is this a current diagnosis for this admission?: Yes (2) Diabetic keto-acidosis Qualifiers: Diabetes mellitus type: type 1 Diabetes mellitus complication detail: without coma Qualified Code(s): E10.10 - Type 1 diabetes mellitus with ketoacidosis without coma Is this a current diagnosis for this admission?: Yes (3) Acute metabolic encephalopathy Is this a current diagnosis for this admission?: Yes (4) High anion gap metabolic acidosis Is this a current diagnosis for this admission?: Yes (5) Enlarged kidney Is this a current diagnosis for this admission?: Yes (6) Heroin abuse Is this a current diagnosis for this admission?: Yes (7) Ulcerative colitis without complications Qualifiers: Ulcerative colitis location: unspecified ulcerative colitis location Quali fied Code(s): K51.90 - Ulcerative colitis, unspecified, without complications Is this a current diagnosis for this admission?: Yes (8) Mass of lower lobe of right lung Is this a current diagnosis for this admission?: Yes (9) Injury due to hypodermic needle Is this a current diagnosis for this admission?: Yes (10) Foreign body of right upper arm Is this a current diagnosis for this admission?: Yes (11) Hypokalemia Is this a current diagnosis for this admission?: Yes (12) Central line complication Qualifiers: Encounter type: initial encounter Qualified Code(s): T82.9XXA - Unspecified complication of cardiac and vascular prosthetic device, implant and graft, initial encounter Is this a current diagnosis for this admission?: Yes (13) Hepatitis C antibody positive in blood Is this a current diagnosis for this admission?: Yes - Plan Summary Summary: (1) Sepsis Qualifiers: Sepsis type: sepsis due to unspecified organism Sepsis acute organ dysfunction status: with acute organ dysfunction Severe sepsis acute organ dysfunction type: encephalopathy Severe sepsis shock status: without septic shock Qualified Code(s): A41.9 - Sepsis, unspecified organism; R65.20 - Severe sepsis without septic shock; G93.40 - Encephalopathy, unspecified Is this a current diagnosis for this admission?: Yes Plan: Unclear etiology: Suspect bacteremia from infective endocarditis versus lung abscess versus meningitis/encephalitis Chest CT with contrast showed 2 cm mass in posterior right lobe concerning for malignancy Abdomen/pelvis CT showed enlarged right kidney possible pyelonephritis although UA is not infected Possible bacteremia from multiple scabbed skin wounds consistent with IV drug abuse Vancomycin/cefepime/acyclovir discontinued on 05/23 per ID Blood cultures growing staph aureus 2/2 bottles Chest x-ray showed right middle lobe opacity of unclear etiology Echocardiogram showed normal cardiac function, negative for vegetations, mild pulmonary hypertension BABAK and lumbar puncture delayed due to elevated INR and small mediastinal hemorrhage from CVL; BABAK device damaged at [facility], must be transferred to have this test done Right arm foreign body removal of needle delayed ID consulted: Recommended stopping vancomycin/acyclovir/cefepime and replacing these with nafcillin LP completed 05/24: Elevated glucose and protein, WBC count of 7 predominantly monocytes; consistent with viral encephalitis Per records, patient has had viral encephalitis in 2010 as well, treated successfully discharged at that time MRI brain showed possible septic emboli to brain, images degraded by motion artifact Right arm vascular ultrasound to look for septic thrombophlebitis pending CT chest/abdomen/pelvis with contrast pending We will need transfer to outside hospital for BABAK and CT surgery consult Per ID: "Assessment/recommendations: 1. High-grade MSSA bacteremia 2. What is likely to be a septic embolus to her right lung---given negative TTE she may have a deep septic thrombophlebitis elsewhere that would explain this pulmonary finding. I would start with an ultrasound of her right arm given the description in the chart, to exclude a deep thrombus/thrombophlebitis, but there may also be pelvic involvement given her swollen edematous kidney. 3. Altered mental status-concerning for septic emboli. This would imply left- sided endocarditis and a CT surgical consultation will be needed if present, although she is unlikely to be a candidate for surgery given her social circums tances as well as her [employer] findings. Her CSF findings are not unexpected given what is likely to be septic emboli to her brain. -BABAK -Continue nafcillin 12 g/day continuous infusion -Please discontinue acyclovir as this is not consistent with herpes encephalitis and is explained by MSSA septic emboli to the brain. -If patient is complaining of focal back pain she will need this imaged with an MRI of the area of concern. -Patient will need 6 weeks of nafcillin from the date of blood culture kristine charleen, but will need better imaging of her brain to ensure there are no [employer] abscesses that may require a longer duration of therapy. In this situation cefazolin would be inferior to nafcillin and every effort should be made to continue therapy with nafcillin for the entire duration given poor [employer] ST[employer] penetration of cefazolin. -Her ongoing fevers are likely related to endovascular infection, but would repeat CT of her chest abdomen and pelvis in the next 72 hours should the fevers continue to assess for splenic, hepatic, and renal abscesses. " (2) Diabetic keto-acidosis Qualifiers: Diabetes mellitus type: type 1 Diabetes mellitus complication detail: without coma Qualified Code(s): E10.10 - Type 1 diabetes mellitus with ketoacidosis without coma Is this a current diagnosis for this admission?: Yes Plan: Likely precipitated by sepsis, treatment as above Insulin drip started, later transitioned to subcutaneous Lantus and sliding sca le insulin IV fluids, LR initially then changed to D5 normal saline with 20 of potassium once blood sugar is below 250 mg/dL Trend BMP Needs follow-up with endocrinology outpatient ABG unable to be done due to multiple blood draw problems Resolved (3) Acute metabolic encephalopathy Is this a current diagnosis for this admission?: Yes Plan: Due to sepsis and DKA Treatment as above CT head with no acute findings Significant improvement seen on 05/25 (4) High anion gap metabolic acidosis Is this a current diagnosis for this admission?: Yes Plan: Treat DKA and sepsis Trend BMP Resolved (5) Enlarged kidney Is this a current diagnosis for this admission?: Yes Plan: Unclear etiology Renal ultrasound showed possible mild hydronephrosis versus extrarenal pelvis (6) Heroin abuse Is this a current diagnosis for this admission?: Yes Plan: UDS negative but multiple skin wounds consistent with drug abuse HIV negative Hepatitis C antibody positive, checking viral load (7) Ulcerative colitis without complications Qualifiers: Ulcerative colitis location: unspecified ulcerative colitis location Qualified Code(s): K51.90 - Ulcerative colitis, unspecified, without complications Is this a current diagnosis for this admission?: Yes Plan: Unclear if patient is on any treatment for this (8) Mass of lower lobe of right lung Is this a current diagnosis for this admission?: Yes Needs biopsy Consulted pulmonology for their opinion on approach for biopsy (9) Injury due to hypodermic needle Is this a current diagnosis for this admission?: Yes Plan: Previous broken needle implanted in the right forearm near elbow/humerus General surgery consulted for removal (10) Foreign body of right upper arm Is this a current diagnosis for this admission?: Yes Plan: 05/22/2020 General surgery consulted: Planning to hold off on needle removal for now due to CVL complication Per general surgery: "Cancel plans for foreign body removal right arm until the above tasks complete. We will continue to follow patient with you." (11) Hypokalemia Is this a current diagnosis for this admission?: Yes (12) Central line complication Qualifiers: Encounter type: initial encounter Qualified Code(s): T82.9XXA - Unspecified complication of cardiac and vascular prosthetic device, implant and graft, init ial encounter Is this a current diagnosis for this admission?: Yes Plan: Possibly due to patient agitation, small mediastinal hemorrhage noted on CT scan Discussed with nursing we can use additional sedating medications whenever needed to maintain a controlled environment if the patient has procedures planned (13) Hepatitis C antibody positive in blood Is this a current diagnosis for this admission?: Yes Plan: Positive hepatitis C antibody Check hepatitis C viral load RNA, pending - Time Time Spent with patient: 35 or more minutes Medications reviewed and adjusted accordingly: Yes Anticipated Discharge Disposition: Tertiary Anticipated Discharge Timeframe: within 24 hours - Inpatient Certification Based on my medical assessment, after consideration of the patient's comorbidities, presenting symptoms, or acuity I expect that the services needed warrant INPATIENT care.: Yes I certify that my determination is in accordance with my understanding of Medicare's requirements for reasonable and necessary INPATIENT services [42 CFR 412.3e].: Yes Medical Necessity: Significant Comorbidiites Make Outpatient Treatment Too Risky, Need Close Monitoring Due to Risk of Patient Decompensation, Need for IV Antibiotics, Need for Surgery, Risk of Complication if Not Cared For in Hospital, Risk of Diagnosis Which Will Require Inpatient Eval/Care/Monitoring
--- NOTE | 2020-05-26 17:45 | Progress Note ---
Provider Note Provider Note: I am try to get the patient transferred to [facility] however they stated they are at capacity and on divert and unable to accept the patient tonight. We will need to look for other facilities tomorrow that may accept the patient. Patient reportedly has a chart at [facility] and [facility] according to the [facility] membership sales representative.
[2020-05-26] MEDS: MELATONIN 5 MG TABLET PO PRN (21:17)
[2020-05-26] MEDS: POTASSIUM CHLORIDE 10 MEQ TABLET.ER PO SCH (21:21)
[2020-05-26] MEDS: THIAMINE HCL 100 MG in NORMAL SALINE 50 ML IV SCH (21:22)
[2020-05-27] MEDS: NAFCILLIN SODIUM 2 GM in DEXTROSE 5%-WATER 100 ML IV SCH ×6 (01:00→21:42)
[2020-05-27] MEDS: ACETAMINOPHEN 325 MG TABLET NG PRN ×2 (03:00→17:35)
[2020-05-27] MEDS: ACYCLOVIR SODIUM 700 MG in NORMAL SALINE 100 ML IV SCH ×2 (05:00→13:34)
[2020-05-27 06:16] LABS: ANION GAP 8 (5-19); BLOOD UREA NITROGEN 7 mg/dL (7-20); CALCIUM 8.3 mg/dL (8.4-10.2); CARBON DIOXIDE 28 mmol/L (22-30); CHLORIDE 104 mmol/L (98-107); GLUCOSE 107 mg/dL (75-110); POTASSIUM 3.3 mmol/L (3.6-5.0)
[2020-05-27] MEDS: INSULIN REG, HUMAN 100 UNIT/ML 3 ML VIAL (PYX) SUBCUT SCH ×4 (07:54→22:18)
[2020-05-27] MEDS: POTASSIUM CHLORIDE 10 MEQ TABLET.ER PO SCH ×2 (09:35→21:41)
[2020-05-27] MEDS: DOCUSATE SODIUM 100 MG CAPSULE PO SCH (09:35)
[2020-05-27] MEDS: INSULIN GLARGINE,HUM.REC.ANLOG 1,000 UNIT/10 ML VIAL SUBCUT SCH (09:35)
[2020-05-27] MEDS: OLANZAPINE 5 MG TABLET NG SCH (09:36)
[2020-05-27] MEDS: ONDANSETRON HCL INJ/PF 4 MG/2 ML SDV IV PRN (10:25)
[2020-05-27] MEDS: PAROXETINE HCL 20 MG TABLET PO SCH (10:26)
[2020-05-27] MEDS: GABAPENTIN 300 MG CAPSULE PO SCH ×3 (11:38→23:16)
--- NOTE | 2020-05-27 12:10 | RADIOLOGY REPORT (SQ) ---
EXAM DESCRIPTION: CT ABDOMEN IV CONTRAST ONLY IMAGES COMPLETED DATE/TIME: 05/27/2020 9:12 am REASON FOR STUDY: disseminated septic emboli COMPARISON: None. TECHNIQUE: CT scan of the abdomen performed with intravenous and without oral contrast using helical scanning technique with dynamic intravenous contrast injection. Images reviewed with lung, soft tiss ue, and bone windows. Reconstructed coronal and sagittal MPR images reviewed. Delayed images for eval uation of the urinary system also acquired and evaluated. All images stored on PACS. All CT scanners at this facility use dose modulation, iterative reconstruc tion, and/or weight based dosing when appropriate to reduce radiation dose to as low as reasonably ac hievable (ALARA). [facility]: Dose Right [facility]: CareDose [facility]: Dose Right [facility]: Teradose 4D [facility]: 3Touch CONTRAST TYPE AND DOSE: contrast/concentration: Isovue 350.00 mmol/ml; Total Contrast Delivered: 80. 0 ml; Total Saline Delivered: 67.0 ml RENAL FUNCTION: GFR > 60. RADIATION DOSE: . LIMITATIONS: None. FINDINGS: LOWER CHEST: See separate report of the CT of the chest. LIVER: Normal size. No masses. No dilated ducts. SPLEEN: Normal size. No focal lesions. PANCREAS: No masses. No significant calcifications. No adjacent inflammation or peripancreatic fluid collections. Pancreatic duct not dilated. GALLBLADDER: No identified stones by CT criteria. No inflammatory changes to suggest cholecystitis. ADRENAL GLANDS: No significant masses or asymmetry. RIGHT KIDNEY AND URETER: No solid masses. No significant calcifications. No hydronephrosis or hyd roureter. LEFT KIDNEY AND URETER: No solid masses. No significant calcifications. No hydronephrosis or hydr oureter. AORTA AND VESSELS: No aneurysm. No dissection. Renal arteries, SMA, celiac without stenosis. RETROPERITONEUM: No retroperitoneal adenopathy, hemorrhage or masses. BOWEL AND PERITONEAL CAVITY: No masses or inflammatory changes. No free fluid or peritoneal masses. APPENDIX: Normal. ABDOMINAL WALL: No masses. No hernias. BONES: No significant or acute findings. OTHER: No other significant finding. IMPRESSION: NORMAL CT OF THE ABDOMEN WITH INTRAVENOUS CONTRAST. TECHNICAL DOCUMENTATION: JOB ID: [id number] Quality ID # [id number]: Final reports with documentation of one or more dose reduction techniques (e.g., Au tomated exposure control, adjustment of the mA and/or kV according to patient size, use of iterative reconstruction technique) 2010 [employer]- All Rights Reserved Reading location - IP/workstation name: [email or web address]
--- NOTE | 2020-05-27 12:26 | RADIOLOGY REPORT (SQ) ---
EXAM DESCRIPTION: CT CHEST WITH IMAGES COMPLETED DATE/TIME: 05/27/2020 9:11 am REASON FOR STUDY: disseminated septic emboli COMPARISON: 05/22/2020, 05/19/2020, 04/30/2016. TECHNIQUE: CT scan of the chest performed using helical scanning technique with dynamic intravenous contrast injection. Images reviewed with lung, soft tissue and bone windows. Reconstructed coronal and sagittal MPR and MIP images reviewed. All images stored on PACS. All CT scanners at this facility use dose modulation, iterative reconstruction, and/or weight based d osing when appropriate to reduce radiation dose to as low as reasonably achievable (ALARA). [facility]: Dose Right [facility]: CareDose [facility]: Dose Right [facility]: Teradose 4D [facility]: [employer] RENAL FUNCTION: GFR > 60. RADIATION DOSE: CT Rad equipment meets quality standard of care and radiation dose reduction techniq ues were employed. CTDIvol: 4.6 - 5.4 mGy. DLP: 567 mGy-cm. . LIMITATIONS: None. FINDINGS: LUNGS AND PLEURA: Unchanged solid nodule superior segment right lower lobe measuring just under 2 cm. No new nodules. No effusions. HILAR AND MEDIASTINAL STRUCTURES: Right paratracheal lesion 4.8 x 3.0 cm and 16 HU not significantly changed. The lesion developed rapidly between 05/19/2020 and 05/22/2020 and is presumably hematoma. HEART AND VASCULAR STRUCTURES: No aneurysm or dissection. No central pulmonary emboli. No pericardi al effusion. HARDWARE: None in the chest. UPPER ABDOMEN: See separate report of the CT of the abdomen. THYROID AND OTHER SOFT TISSUES: No masses. No adenopathy. BONES: No significant finding. OTHER: Unchanged position of right-sided central line. IMPRESSION: No significant change. TECHNICAL DOCUMENTATION: JOB ID: [id number] Quality ID # [id number]: Final reports with documentation of one or more dose reduction techniques (e.g., Au tomated exposure control, adjustment of the mA and/or kV according to patient size, use of iterative reconstruction technique) 2010 [employer]- All Rights Reserved Reading location - IP/workstation name: [email or web address]
[2020-05-27] MEDS: BUPRENORPHINE HCL 2 MG SUBLINGUAL TABLET SL SCH (17:05)
[2020-05-27] MEDS: DIPHENHYDRAMINE HCL 25 MG CAPSULE PO PRN (20:29)
--- NOTE | 2020-05-27 20:38 | PDOC PROGRESS REPORT ---
Subjective Date:: 05/27/20 Subjective:: ИВАН MONTELONGO is a 35 year old female with past medical history significant f or IV drug abuse, diabetes, ulcerative colitis, chronic pain who presents to the ED via EMS after her parents called 911 due to the patient having confusion and combativeness. Patient was brought to ED and started on IV fluids. CT of abdomen/pelvis showed enlarged edematous right kidney possible pyelonephritis although UA was not consistent with infection. No hydronephrosis. UA did show massive amount of glucose as well as ketones. Patient has multiple small wounds on her upper extremities consistent with possible injection sites and small areas of potential cellulitis. Reportedly, patient has been off IV drugs which is not consistent with physical exam findings. History cannot be obtained by the patient as she is confused and I have tried many times to contact her family via the phone numbers in the chart and they do not answer the phone or return my calls. History obtained solely from the chart and ED personnel. Head CT showed no acute findings. Chest x-ray showed a subtle ovoid groundglass opacity in the right middle lung infectious or inflammatory. CT chest was not obtained in ED and I have ordered a CT chest to evaluate this possible lung infarction or lung abscess which could have been implanted from IV drug abuse. IV fluids started. Patient became confused and combative and pulled out her IV and she was put in restraints. She is oriented only to herself on admission. Labs are remarkable for a gap acidosis and a blood sugar of 417. She was not yet started on insulin drip. I requested that the ED start this promptly during my initial discussion with attending physician. Patient's troponin is mildly elevated and this is trending. Suspect infected endocarditis as a source of patient's DKA. Echocardiogram ordered. Vancomycin and cefepime started. Blood cultures pending. 05/20/2020 Patient still confused and combative at times. IV Ativan as needed being given intermittently. Per nursing, patient twisted her arm and then was complaining of it hurting. We will get an x-ray to look at her right wrist. Fever has resolved, troponin flat, lipase normal, ammonia negative. A1c is 10. Low phosphorus and elevated lactic acid. Blood cultures growing staph aureus in both bottles. Covid testing is pending. Blood sugar is dropped to an acce ptable level. CT chest shows a suspicious mass and I will discuss getting a biopsy with her family. I suspect may be an abscess rather than malignancy but radiologist report states it is very suspicious for malignancy. I have also ordered a lumbar puncture with appropriate labs. Echocardiogram has been done but not read yet. Clinical picture seems consistent with infectious endocarditis with sepsis. 05/21/2020 Patient's mentation has not improved in any meaningful way. She continues to answer almost all questions with her birthdate. White blood cell count is trending down, blood sugar is now in the mid 200s and we have restarted subcutaneous insulin. Blood cultures are now growing MSSA in both bottles and patient is continued on broad-spectrum antibiotics for now. Echocardiogram s howed normal cardiac function with mild pulmonary hypertension and no vegetations. Lumbar puncture has been delayed due to INR being approximately 1.6 and the radiologist would like it at 1.5 or below. Patient was given vitamin K today and recheck of INR is actually higher. Patient has no signs of bleeding. PICC line will be placed today. MRI brain ordered however according to patient's mother she has a broken needle in her right arm. I have consulted general surgery to remove this broken needle given that per the x-rays it seems to be rather superficial. We will wait to see what they think about removing it. Antibiotics continue. BABAK ordered. Right wrist x-ray did not show any fra ctures. Patient remains in restraints for her own safety. Covid is negative. She should be moved to a general IMCU bed as soon as possible. 05/22/2020 Patient's mentation does not seem to be any improved today. She is still requiring restraints to protect her lines. We will drop an NG tube today and start tube feeds that she has had no nutrition for the past 2 days. Central line was put in yesterday by general surgery and due to patient agitation and movement, seems to have a small mediastinal hemorrhage according to general surgery whom I spoke with today. They recommended holding on any procedures today and having these done tomorrow instead. I also recommended stopping all blood thinners for the time being. We will get a dry CT head in the meantime. General surgery is also unable to remove the broken needle in the patient's right arm in order to get her an MRI due to anesthesia concerns about electrolytes given that the patient has a potassium of 3.2. I discussed with them the notion of correcting the electrolytes and readdressing, but since we have learned about the CVL complication, we will hold off on all procedures until tomorrow. LP and BABAK will also be delayed because of this. Antibiotics continue. Now the patient is off of insulin drip, we will switch her fluids to LR given that she is developing hypernatremia. Once she has tube feeding and free water running through an NG tube, we could potentially stop IV fluids altogether. On the right side, INR is lower at 1.28 which would allow any of the above procedures if we were actually able to do them today. I called the patient's mother yesterday and gave her a very detailed extensive update on the many diagnostic tests and treatments we are providing to the patient. We spoke for at least 30 to 45 minutes total. Apparently, Ms. Noonan had her cell phone set to ignore outside phone calls automatically and she states this feature is been turned off so that I can communicate with her when needed. 05/23/2020 We will be trying to get the patient an LP today. I have added Zyprexa and instructed the nurse to give her an extra dose of 2 mg Ativan prior to going down for this procedure. If needed, we can give additional sedation on top of this. It is imperative that we get this lumbar puncture today. This procedure has been ordered for the past few days and was not able to be done due to the vascular complication of the central line placement and also the patient's severe agitation during the attempted procedure. ID consult note has been done although it seems that they have not noticed the patient has already had an echocardiogram 3 days ago and I am actually trying to arrange a BABAK given that the TTE did not show endocarditis. We have had multiple attempts at getting an LP and will try again today. I am available to discuss the case with them anytime if they need help interpreting the plan. They recommended stopping vancomycin and cefepime and acyclovir, start nafcillin. I spoke with Dr. Knutson myself today and clarified the current results and the plan going forward. I was not sure what he meant by working up the patient's shoulder or which shoulder it might be and he states this was simply part of his discussion with the pharmacist and he was not sure of it either. I spoke with the patient's father today and gave him an update as well. HIV negative. Hepatitis panel pending. Temperature is a bit higher to 100.1 today. We still need to get an LP, foreign body needle removed, MRI brain. 05/24/2020 Lumbar puncture done today and initial CSF results show high white blood cells with a mononuclear predominance, high glucose and high protein. Appears it could be consistent with a viral encephalitis. Cultures have been sent and are pending. I will restart acyclovir IV for the time being. This will continue until we get finalized CSF culture results. I had a long discussion with the patient's daughter and sister over the phone today. I answered many questions. The next step in the patient's treatment will be to get a BABAK hopefully on Tuesday. We need to confirm a valvular vegetation and potentially move forward with CT surgery consult at an outside hospital if this is confirmed. Patient is perhaps a bit more alert today and states the date is 2019 and she is at [facility]. She also recognizes her daughter. She continues to keep her eyes closed for most the day. Potassiums low we will replete this. Blood sugar is still high and I have increased her Lantus. 05/25/2020 Patient is now awake and alert much more so than she has been throughout this entire admission. She is oriented to herself, place, disposition and she knows that the date is 2019 but is unsure about the rest of the date. Per nursing, patient requested to be removed from restraints and was able to calmly drink a glass of apple juice without coughing or choking a single time. After a few hours however, patient became agitated and attempted to get out of her bed and reportedly fell and potentially hit her head. We will get an MRI of her brain which radiology and general surgery have both stated is safe despite the fact she has a hypodermic needle in her right arm. They do not believe this metal is ferromagnetic and would move during a simple MRI of the brain. Patient's mother is at bedside trying to calm her down. Latest blood cultures are negative. I dug far back into her admission history in the EMR and found that the patient had a previous episode of what was presumed to be viral meningitis in 2010, interestingly she was admitted to the OB service at that time. That episode per the chart seem to be much less severe than the current 1 and the patient was discharged in stable condition when this resolved. CSF results here seem consistent with potential viral meningitis/encephalitis rather than a bacterial source. Patient will regardless need BABAK tomorrow. She is very high risk for IE and we will continue treating as such. Since I found the records from 2010, I have restarted the patient's IV acyclovir to treat possible underlying viral meningitis/encephalitis. 05/26/2020 This afternoon, I spoke with Dr. Mtz today regarding the BABAK and he stated this will not be able to be done here due to the BABAK machine now being broken without any clear timeline for it to be fixed. Instead the patient will need to be transferred to an outside facility to have a BABAK done. Noted ID recommendations as below. I have ordered CT chest/abdomen/pelvis with contrast as they requested. Discussed nafcillin dosing with pharmacy and they stated efficacy is the same for every 4 hour dosing versus continuous. Continuous infusion would potentially complicate the administration of other IV medications and keep the patient from participating in therapy. I expect patient will need transfer to a tertiary hospital for definitive surgical treatment of her likely infected endocarditis and now that BABAK is not an option here she may need transfer sooner than that. We will work on getting the test laid out by ID and reach out to an outside hospital to see their availability for beds. 05/27/20 She was seen and examined at bedside. Her mental status is back to baseline. She is alert, awake, coherent able to hold a conversation. She has been afebrile since May 25, 2020. WBC count 12.5. ID recommendations noted, acyclovir stopped today. She is currently on nafcillin for endocarditis MSSA. She would need to be transferred to a tertiary care facility for transesophageal echocardiogram placated by possible septic emboli to the lung. Repeat CT chest showed unchanged solid nodule superior segment right lower lobe measuring just under 2 cm. Right paratracheal lesion 4.8 x 3 cm and 16 Hounsfield units not significantly changed from prior CT chest and likely represents hematoma. CT abdomen negative. I was able to confirm her Subutex dose from her addiction clinic and I have resumed her 8 mg twice daily of Subutex. Will follow up with transfer center from [facility] tomorrow and would also call [facility] and [facility] for possible transfer. Reason For Visit: ACUTE METABOLIC ENCEPHALOPATHY Physical Exam Vital Signs: Temp Pulse Resp BP Pulse Ox 98.6 F 110 H 16 102/62 95 05/27/20 16:23 05/27/20 19:00 05/27/20 16:23 05/27/20 16:23 05/27/20 16:23 Intake & Output 05/26/20 05/27/20 05/28/20 06:59 06:59 06:59 Intake Total 165 969 702 Output Total 0 Balance 165 969 702 Weight 66.9 kg 72.4 kg General appearance: PRESENT: no acute distress, cooperative, other - Central line right jugular area Head exam: PRESENT: atraumatic, normocephalic Eye exam: PRESENT: EOMI, PERRLA Mouth exam: PRESENT: moist Neck exam: PRESENT: full ROM, other - central line Respiratory exam: PRESENT: clear to auscultation brandon, symmetrical, unlabored Cardiovascular exam: PRESENT: RRR, +S1, +S2 Pulses: PRESENT: normal radial pulses GI/Abdominal exam: PRESENT: normal bowel sounds, soft. ABSENT: rebound, tenderness Extremities exam: PRESENT: full ROM Musculoskeletal exam: PRESENT: full ROM Neurological exam: PRESENT: alert, awake, oriented to person, oriented to place, oriented to time, oriented to situation Psychiatric exam: PRESENT: normal mood Skin exam: PRESENT: normal color Results Laboratory Results: 05/26/20 07:56 05/27/20 05:01 05/26/20 05/27/20 21:20 05:01 Sodium 139.9 Potassium 3.3 L Chloride 104 Carbon Dioxide 28 Anion Gap 8 BUN 7 Creatinine 0.50 L Est GFR ( Amer) > 60 Glucose 107 Calcium 8.3 L Magnesium 1.8 05/19/20 05/19/20 05/20/20 11:56 20:15 03:12 Troponin I 0.026 0.041 0.046 Impressions: Renal Ultrasound 05/19/20 00:00 IMPRESSION: There is fullness of the right renal pelvis which may represent an extrarenal pelvis or mild hydronephrosis. Abdomen/Pelvis CT 05/19/20 12:06 IMPRESSION: 1. Asymmetrically enlarged, likely edematous, right kidney suggestive of pyelonephritis. Recommend correlation with UA. No hydronephrosis. 2. No evidence of acute intra-abdominal/pelvic process. Normal appendix. 3. Moderate formed stool throughout the colon. Wrist X-Ray 05/20/20 00:00 IMPRESSION: NEGATIVE STUDY OF THE RIGHT WRIST. NO RADIOGRAPHIC EVIDENCE OF ACUTE INJURY. Forearm X-Ray 05/21/20 00:00 IMPRESSION: 7 mm needle fragment in the antecubital fossa soft tissues Hand X-Ray 05/21/20 00:00 IMPRESSION: No radiopaque foreign body identified Humerus X-Ray 05/21/20 00:00 IMPRESSION: 7 mm needle fragment in the antecubital fossa soft tissues Fluoroscopy 05/22/20 00:00 IMPRESSION: FLUOROSCOPIC EVALUATION OF INDWELLING CENTRAL CATHETER, WITHOUT EVIDENCE FOR COMPLICATION OR EXTRAVASATION. Head CT 05/22/20 00:00 IMPRESSION: Very limited study. No bleed or mass. Subtle decreased attenuation in the right posterior frontal and parietal lobe cannot be excluded as discussed above. EVIDENCE OF ACUTE STROKE: NO. KUB X-Ray 05/23/20 00:00 IMPRESSION: NG tube tip in the upper stomach. Chest X-Ray 05/24/20 00: IMPRESSION: 1. Stable aeration with nonspecific prominence of the superior mediastinum. Further evaluation with CT chest is recommended. 2. Enteric tube terminates at the level of the gastric antrum. Lumbar Puncture 05/24/20 00:00 IMPRESSION: Successful fluoroscopic guided lumbar puncture. Head MRI 05/25/20 00: IMPRESSION: Extremely limited study. There are however multiple areas of restricted diffusion bilateral indicating infarcts from the embolic phenomena. EVIDENCE OF ACUTE STROKE: Yes embolic Abdomen CT 05/27/20 08:00 IMPRESSION: NORMAL CT OF THE ABDOMEN WITH INTRAVENOUS CONTRAST. Chest CT 05/27/20 08:00 IMPRESSION: No significant change. Assessment and Plan - Diagnosis (1) MSSA (methicillin susceptible Staphylococcus aureus) septicemia Is this a current diagnosis for this admission?: Yes Plan: -History of IV drug use admitted due to altered mental status -Blood culture growing MSSA -Chest CT with contrast showed 2 cm mass in posterior right lobe concerning for malignancy Abdomen/pelvis CT showed enlarged right kidney possible pyelonephritis although UA is not infected - TTE showed normal cardiac function, negative for vegetations, mild pulmonary hypertension -Blood culture May 19 showed two bottles positive for MSSA -repeat blood culture May 23 negative for growth -She ultimately needs BABAK to assess for vegetation since she has possible septic emboli to the brain, lungs, kidneys however BABAK machine is not functioning currently -Currently on nafcillin IV every 4 hrs day 4 - will call other tertiary care facility tomorrow - ID following (2) Sepsis Qualifiers: Sepsis type: sepsis due to unspecified organism Sepsis acute organ dysf unction status: with acute organ dysfunction Severe sepsis acute organ dy sfunction type: encephalopathy Severe sepsis shock status: without septic shock Qualified Code(s): A41.9 - Sepsis, unspecified organism; R65.20 - Severe sepsis without septic shock; G93.40 - Encephalopathy, unspecified Is this a current diagnosis for this admission?: Yes Plan: - improving 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 -MRI possible embolic phenomena Abdomen/pelvis CT showed enlarged right kidney possible pyelonephritis although UA is not infected - Chest x-ray showed right middle lobe opacity of unclear etiology Blood cultures 05/23/20 negative -On day four of nafcillin (3) Acute metabolic encephalopathy Is this a current diagnosis for this admission?: Yes Plan: - Resolved -likely from septic emboli to brain on top of DKA -CT head negative -MRI showed multiple areas of restricted diffusion bilateral indicating improved infarcts from embolic phenomena -Currently on IV antibiotics for presumed endocarditis I have also resumed her paroxetine, she has as needed Haldol for agitation (4) Diabetic keto-acidosis Qualifiers: Diabetes mellitus type: type 1 Diabetes mellitus complication detail: without coma Qualified Code(s): E10.10 - Type 1 diabetes mellitus with ketoacidosis without coma Is this a current diagnosis for this admission?: Yes Plan: - RESOLVED Likely precipitated by sepsis -A1c 10 -Incision to long-acting insulin and sliding scale -Accu-Cheks -Hypoglycemia protocol (5) Foreign body of right upper arm Is this a current diagnosis for this admission?: Yes Plan: 05/22/2020 General surgery consulted: Planning to hold off on needle removal for now due to CVL complication Per general surgery: "Cancel plans for foreign body removal right arm until the above tasks complete. We will continue to follow patient with you." (6) Hepatitis C antibody positive in blood Is this a current diagnosis for this admission?: Yes Plan: Positive hepatitis C antibody Check hepatitis C viral load RNA (7) Heroin abuse Is this a current diagnosis for this admission?: Yes Plan: UDS negative but multiple skin wounds consistent with drug abuse (8) Diabetes Qualifiers: Diabetes mellitus type: type 2 Diabetes mellitus terminal manager insulin use: unspecified half-way insulin use status Diabetes mellitus complication status: with unspecified complications Is this a current diagnosis for this admission?: Yes Plan: -A1c 10\\-admits to being poorly compliant with her insulin, as well as insurance issues -Currently on Lantus 26 units and sliding scale insulin (9) Mass of lower lobe of right lung Is this a current diagnosis for this admission?: Yes Plan: Seen on chest CT with contrast Dr. Perrin consulted. Recommend to repeat CT chest once ongoing infection has resolved -Possible CT-guided needle biopsy - Time Time Spent with patient: 25-34 minutes Medications reviewed and adjusted accordingly: Yes Anticipated Discharge Disposition: Tertiary Anticipated Discharge Timeframe: to be determined
[2020-05-27] MEDS: MELATONIN 5 MG TABLET PO PRN (21:41)
[2020-05-27] MEDS: THIAMINE HCL 100 MG in NORMAL SALINE 50 ML IV SCH (21:42)
[2020-05-28] MEDS: NAFCILLIN SODIUM 2 GM in DEXTROSE 5%-WATER 100 ML IV SCH ×6 (01:40→21:50)
[2020-05-28] MEDS: ACETAMINOPHEN 325 MG TABLET NG PRN ×3 (02:27→21:39)
[2020-05-28] MEDS: GABAPENTIN 300 MG CAPSULE PO SCH ×4 (05:19→23:00)
[2020-05-28 07:36] LABS: ANION GAP 8 (5-19); BLOOD UREA NITROGEN 6 mg/dL (7-20); CALCIUM 8.3 mg/dL (8.4-10.2); CARBON DIOXIDE 25 mmol/L (22-30); CHLORIDE 102 mmol/L (98-107); GLUCOSE 327 mg/dL (75-110); POTASSIUM 3.7 mmol/L (3.6-5.0)
[2020-05-28] MEDS: INSULIN REG, HUMAN 100 UNIT/ML 3 ML VIAL (PYX) SUBCUT SCH ×4 (07:57→22:43)
[2020-05-28] MEDS: INSULIN LISPRO 100 UNIT/ML 3 ML VIAL SUBCUT SCH ×3 (08:19→16:12)
[2020-05-28] MEDS: POTASSIUM CHLORIDE 10 MEQ TABLET.ER PO SCH ×2 (09:31→21:38)
[2020-05-28] MEDS: PAROXETINE HCL 20 MG TABLET PO SCH (09:31)
[2020-05-28] MEDS: INSULIN GLARGINE,HUM.REC.ANLOG 1,000 UNIT/10 ML VIAL SUBCUT SCH (09:32)
[2020-05-28] MEDS: DOCUSATE SODIUM 100 MG CAPSULE PO SCH (09:32)
[2020-05-28] MEDS: BUPRENORPHINE HCL 2 MG SUBLINGUAL TABLET SL SCH ×2 (09:32→17:22)
[2020-05-28] MEDS ORDERED: INSULIN GLARGINE,HUM.REC.ANLOG 1,000 UNIT/10 ML VIAL SUBCUT SCH (10:00)
[2020-05-28] MEDS: NICOTINE 21 MG/24 HR PATCH.TD24 TD SCH (12:06)
[2020-05-28] MEDS ORDERED: DEXTROSE 50%-WATER 25 GM/50 ML DISP.SYRIN IV PRN ×2 (12:37)
[2020-05-28] MEDS ORDERED: GLUCAGON,HUMAN RECOMB 1 MG INJ SUBCUT PRN (12:37)
[2020-05-28] MEDS ORDERED: DEXTROSE 40% GEL 15 GM TUBE PO PRN (12:37)
--- NOTE | 2020-05-28 13:40 | PDOC PROGRESS REPORT ---
Subjective Date:: 05/28/20 Subjective:: ИВАН MONTELONGO is a 35 year old female with past medical history significant f or IV drug abuse, diabetes, ulcerative colitis, chronic pain who presents to the ED via EMS after her parents called 911 due to the patient having confusion and combativeness. Patient was brought to ED and started on IV fluids. CT of abdomen/pelvis showed enlarged edematous right kidney possible pyelonephritis although UA was not consistent with infection. No hydronephrosis. UA did show massive amount of glucose as well as ketones. Patient has multiple small wounds on her upper extremities consistent with possible injection sites and small areas of potential cellulitis. Reportedly, patient has been off IV drugs which is not consistent with physical exam findings. History cannot be obtained by the patient as she is confused and I have tried many times to contact her family via the phone numbers in the chart and they do not answer the phone or return my calls. History obtained solely from the chart and ED personnel. Head CT showed no acute findings. Chest x-ray showed a subtle ovoid groundglass opacity in the right middle lung infectious or inflammatory. CT chest was not obtained in ED and I have ordered a CT chest to evaluate this possible lung infarction or lung abscess which could have been implanted from IV drug abuse. IV fluids started. Patient became confused and combative and pulled out her IV and she was put in restraints. She is oriented only to herself on admission. Labs are remarkable for a gap acidosis and a blood sugar of 417. She was not yet started on insulin drip. I requested that the ED start this promptly during my initial discussion with attending physician. Patient's troponin is mildly elevated and this is trending. Suspect infected endocarditis as a source of patient's DKA. Echocardiogram ordered. Vancomycin and cefepime started. Blood cultures pending. 05/20/2020 Patient still confused and combative at times. IV Ativan as needed being given intermittently. Per nursing, patient twisted her arm and then was complaining of it hurting. We will get an x-ray to look at her right wrist. Fever has resolved, troponin flat, lipase normal, ammonia negative. A1c is 10. Low phosphorus and elevated lactic acid. Blood cultures growing staph aureus in both bottles. Covid testing is pending. Blood sugar is dropped to an acce ptable level. CT chest shows a suspicious mass and I will discuss getting a biopsy with her family. I suspect may be an abscess rather than malignancy but radiologist report states it is very suspicious for malignancy. I have also ordered a lumbar puncture with appropriate labs. Echocardiogram has been done but not read yet. Clinical picture seems consistent with infectious endocarditis with sepsis. 05/21/2020 Patient's mentation has not improved in any meaningful way. She continues to answer almost all questions with her birthdate. White blood cell count is trending down, blood sugar is now in the mid 200s and we have restarted subcutaneous insulin. Blood cultures are now growing MSSA in both bottles and patient is continued on broad-spectrum antibiotics for now. Echocardiogram s howed normal cardiac function with mild pulmonary hypertension and no vegetations. Lumbar puncture has been delayed due to INR being approximately 1.6 and the radiologist would like it at 1.5 or below. Patient was given vitamin K today and recheck of INR is actually higher. Patient has no signs of bleeding. PICC line will be placed today. MRI brain ordered however according to patient's mother she has a broken needle in her right arm. I have consulted general surgery to remove this broken needle given that per the x-rays it seems to be rather superficial. We will wait to see what they think about removing it. Antibiotics continue. BABAK ordered. Right wrist x-ray did not show any fra ctures. Patient remains in restraints for her own safety. Covid is negative. She should be moved to a general IMCU bed as soon as possible. 05/22/2020 Patient's mentation does not seem to be any improved today. She is still requiring restraints to protect her lines. We will drop an NG tube today and start tube feeds that she has had no nutrition for the past 2 days. Central line was put in yesterday by general surgery and due to patient agitation and movement, seems to have a small mediastinal hemorrhage according to general surgery whom I spoke with today. They recommended holding on any procedures today and having these done tomorrow instead. I also recommended stopping all blood thinners for the time being. We will get a dry CT head in the meantime. General surgery is also unable to remove the broken needle in the patient's right arm in order to get her an MRI due to anesthesia concerns about electrolytes given that the patient has a potassium of 3.2. I discussed with them the notion of correcting the electrolytes and readdressing, but since we have learned about the CVL complication, we will hold off on all procedures until tomorrow. LP and BABAK will also be delayed because of this. Antibiotics continue. Now the patient is off of insulin drip, we will switch her fluids to LR given that she is developing hypernatremia. Once she has tube feeding and free water running through an NG tube, we could potentially stop IV fluids altogether. On the right side, INR is lower at 1.28 which would allow any of the above procedures if we were actually able to do them today. I called the patient's mother yesterday and gave her a very detailed extensive update on the many diagnostic tests and treatments we are providing to the patient. We spoke for at least 30 to 45 minutes total. Apparently, Ms. Noonan had her cell phone set to ignore outside phone calls automatically and she states this feature is been turned off so that I can communicate with her when needed. 05/23/2020 We will be trying to get the patient an LP today. I have added Zyprexa and instructed the nurse to give her an extra dose of 2 mg Ativan prior to going down for this procedure. If needed, we can give additional sedation on top of this. It is imperative that we get this lumbar puncture today. This procedure has been ordered for the past few days and was not able to be done due to the vascular complication of the central line placement and also the patient's severe agitation during the attempted procedure. ID consult note has been done although it seems that they have not noticed the patient has already had an echocardiogram 3 days ago and I am actually trying to arrange a BABAK given that the TTE did not show endocarditis. We have had multiple attempts at getting an LP and will try again today. I am available to discuss the case with them anytime if they need help interpreting the plan. They recommended stopping vancomycin and cefepime and acyclovir, start nafcillin. I spoke with Dr. Knutson myself today and clarified the current results and the plan going forward. I was not sure what he meant by working up the patient's shoulder or which shoulder it might be and he states this was simply part of his discussion with the pharmacist and he was not sure of it either. I spoke with the patient's father today and gave him an update as well. HIV negative. Hepatitis panel pending. Temperature is a bit higher to 100.1 today. We still need to get an LP, foreign body needle removed, MRI brain. 05/24/2020 Lumbar puncture done today and initial CSF results show high white blood cells with a mononuclear predominance, high glucose and high protein. Appears it could be consistent with a viral encephalitis. Cultures have been sent and are pending. I will restart acyclovir IV for the time being. This will continue until we get finalized CSF culture results. I had a long discussion with the patient's daughter and sister over the phone today. I answered many questions. The next step in the patient's treatment will be to get a BABAK hopefully on Tuesday. We need to confirm a valvular vegetation and potentially move forward with CT surgery consult at an outside hospital if this is confirmed. Patient is perhaps a bit more alert today and states the date is 2019 and she is at [facility]. She also recognizes her daughter. She continues to keep her eyes closed for most the day. Potassiums low we will replete this. Blood sugar is still high and I have increased her Lantus. 05/25/2020 Patient is now awake and alert much more so than she has been throughout this entire admission. She is oriented to herself, place, disposition and she knows that the date is 2019 but is unsure about the rest of the date. Per nursing, patient requested to be removed from restraints and was able to calmly drink a glass of apple juice without coughing or choking a single time. After a few hours however, patient became agitated and attempted to get out of her bed and reportedly fell and potentially hit her head. We will get an MRI of her brain which radiology and general surgery have both stated is safe despite the fact she has a hypodermic needle in her right arm. They do not believe this metal is ferromagnetic and would move during a simple MRI of the brain. Patient's mother is at bedside trying to calm her down. Latest blood cultures are negative. I dug far back into her admission history in the EMR and found that the patient had a previous episode of what was presumed to be viral meningitis in 2010, interestingly she was admitted to the OB service at that time. That episode per the chart seem to be much less severe than the current 1 and the patient was discharged in stable condition when this resolved. CSF results here seem consistent with potential viral meningitis/encephalitis rather than a bacterial source. Patient will regardless need BABAK tomorrow. She is very high risk for IE and we will continue treating as such. Since I found the records from 2010, I have restarted the patient's IV acyclovir to treat possible underlying viral meningitis/encephalitis. 05/26/2020 This afternoon, I spoke with Dr. Mtz today regarding the BABAK and he stated this will not be able to be done here due to the BABAK machine now being broken without any clear timeline for it to be fixed. Instead the patient will need to be transferred to an outside facility to have a BABAK done. Noted ID recommendations as below. I have ordered CT chest/abdomen/pelvis with contrast as they requested. Discussed nafcillin dosing with pharmacy and they stated efficacy is the same for every 4 hour dosing versus continuous. Continuous infusion would potentially complicate the administration of other IV medications and keep the patient from participating in therapy. I expect patient will need transfer to a tertiary hospital for definitive surgical treatment of her likely infected endocarditis and now that BABAK is not an option here she may need transfer sooner than that. We will work on getting the test laid out by ID and reach out to an outside hospital to see their availability for beds. 05/27/20 She was seen and examined at bedside. Her mental status is back to baseline. She is alert, awake, coherent able to hold a conversation. She has been afebrile since May 25, 2020. WBC count 12.5. ID recommendations noted, acyclovir stopped today. She is currently on nafcillin for endocarditis MSSA. She would need to be transferred to a tertiary care facility for transesophageal echocardiogram placated by possible septic emboli to the lung. Repeat CT chest showed unchanged solid nodule superior segment right lower lobe measuring just under 2 cm. Right paratracheal lesion 4.8 x 3 cm and 16 Hounsfield units not significantly changed from prior CT chest and likely represents hematoma. CT abdomen negative. I was able to confirm her Subutex dose from her addiction clinic and I have resumed her 8 mg twice daily of Subutex. Will follow up with transfer center from [facility] tomorrow and would also call [facility] and [place] for possible transfer. 05/28/20 She was seen and examined at bedside. Mental status is improved, awake, alert and talking. Denies any chest pain, SOB. She remains afebrile. Initial plan was to transfer her for a much needed BABAK however she might be able to get the BABAK done in-house. And depending on what the BABAK shows she still might need to get transferred for cardiothoracic consult and assessment. She is doing well on nafcillin. And has remained afebrile. Reason For Visit: ACUTE METABOLIC ENCEPHALOPATHY Physical Exam Vital Signs: Temp Pulse Resp BP Pulse Ox 98.2 F 79 16 103/68 98 05/28/20 07:32 05/28/20 07:32 05/28/20 07:32 05/28/20 07:32 05/28/20 07:32 Intake & Output 05/27/20 05/28/20 05/29/20 06:59 06:59 06:59 Intake Total 969 2105 Output Total 0 Balance 969 2105 Weight 72.4 kg 70.9 kg General appearance: PRESENT: no acute distress, cooperative Head exam: PRESENT: atraumatic, normocephalic Eye exam: PRESENT: EOMI, PERRLA Mouth exam: PRESENT: moist Neck exam: PRESENT: full ROM Respiratory exam: PRESENT: clear to auscultation brandon, symmetrical, unlabored Cardiovascular exam: PRESENT: RRR, +S1, +S2 Pulses: PRESENT: +2 pedal pulses bilateral GI/Abdominal exam: PRESENT: normal bowel sounds, soft. ABSENT: rebound, tenderness Extremities exam: PRESENT: full ROM Musculoskeletal exam: PRESENT: full ROM Neurological exam: PRESENT: alert, awake, oriented to person, oriented to place, oriented to time Psychiatric exam: PRESENT: normal mood Results Laboratory Results: 05/26/20 07:56 05/28/20 06:20 05/24/20 05/28/20 11:50 06:20 Sodium 135.1 L Potassium 3.7 Chloride 102 Carbon Dioxide 25 Anion Gap 8 BUN 6 L Creatinine 0.53 Est GFR ( Amer) > 60 Glucose 327 H Calcium 8.3 L CSF VDRL Non Reactive 05/23/20 10:30 Blood Blood Culture - Final NO GROWTH IN 5 DAYS 05/23/20 09:18 Blood Blood Culture - Final NO GROWTH IN 5 DAYS 05/19/20 05/19/20 05/20/20 11:56 20:15 03:12 Troponin I 0.026 0.041 0.046 Impressions: Renal Ultrasound 05/19/20 00:00 IMPRESSION: There is fullness of the right renal pelvis which may represent an extrarenal pelvis or mild hydronephrosis. Abdomen/Pelvis CT 05/19/20 12:06 IMPRESSION: 1. Asymmetrically enlarged, likely edematous, right kidney suggestive of pyelonephritis. Recommend correlation with UA. No hydronephrosis. 2. No evidence of acute intra-abdominal/pelvic process. Normal appendix. 3. Moderate formed stool throughout the colon. Wrist X-Ray 05/20/20 00:00 IMPRESSION: NEGATIVE STUDY OF THE RIGHT WRIST. NO RADIOGRAPHIC EVIDENCE OF ACUTE INJURY. Forearm X-Ray 05/21/20 00:00 IMPRESSION: 7 mm needle fragment in the antecubital fossa soft tissues Hand X-Ray 05/21/20 00:00 IMPRESSION: No radiopaque foreign body identified Humerus X-Ray 05/21/20 00:00 IMPRESSION: 7 mm needle fragment in the antecubital fossa soft tissues Fluoroscopy 05/22/20 00:00 IMPRESSION: FLUOROSCOPIC EVALUATION OF INDWELLING CENTRAL CATHETER, WITHOUT EVIDENCE FOR COMPLICATION OR EXTRAVASATION. Head CT 05/22/20 00:00 IMPRESSION: Very limited study. No bleed or mass. Subtle decreased attenuation in the right posterior frontal and parietal lobe cannot be excluded as discussed above. EVIDENCE OF ACUTE STROKE: NO. KUB X-Ray 05/23/20 00:00 IMPRESSION: NG tube tip in the upper stomach. Chest X-Ray 05/24/20 00:00 IMPRESSION: 1. Stable aeration with nonspecific prominence of the superior mediastinum. Further evaluation with CT chest is recommended. 2. Enteric tube terminates at the level of the gastric antrum. Lumbar Puncture 05/24/20 00:00 IMPRESSION: Successful fluoroscopic guided lumbar puncture. Head MRI 05/25/20 00:00 IMPRESSION: Extremely limited study. There are however multiple areas of restricted diffusion bilateral indicating infarcts from the embolic phenomena. EVIDENCE OF ACUTE STROKE: Yes embolic Abdomen CT 05/27/20 08:00 IMPRESSION: NORMAL CT OF THE ABDOMEN WITH INTRAVENOUS CONTRAST. Chest CT 05/27/20 08:00 IMPRESSION: No significant change. Assessment and Plan - Diagnosis (1) MSSA (methicillin susceptible Staphylococcus aureus) septicemia Is this a current diagnosis for this admission?: Yes Plan: -History of IV drug use admitted due to altered mental status -Blood culture growing MSSA -Chest CT with contrast showed 2 cm mass in posterior right lobe concerning for malignancy Abdomen/pelvis CT showed enlarged right kidney possible pyelonephritis although UA is not infected - TTE showed normal cardiac function, negative for vegetations, mild pulmonary hypertension -Blood culture May 19 showed two bottles positive for MSSA -repeat blood culture May 23 negative for growth -BABAK pending and depending on result might still need to get transferred for CT surgery eval -Currently on nafcillin IV every 4 hrs day 4 - ID following (2) Sepsis Qualifiers: Sepsis type: sepsis due to unspecified organism Sepsis acute organ dysfunction status: with acute organ dysfunction Severe sepsis acute organ dysfunction type: encephalopathy Severe sepsis shock status: without septic shock Qualified Code(s): A41.9 - Sepsis, unspecified organism; R65.20 - Severe sepsis without septic shock; G93.40 - Encephalopathy, unspecified Is this a current diagnosis for this admission?: Yes Plan: - improving 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 -MRI possible embolic phenomena Abdomen/pelvis CT showed enlarged right kidney possible pyelonephritis although UA is not infected - Chest x-ray showed right middle lobe opacity of unclear etiology Blood cultures 05/23/20 negative -On D5 of nafcillin (3) Acute metabolic encephalopathy Is this a current diagnosis for this admission?: Yes Plan: - Resolved -likely from septic emboli to brain on top of DKA -CT head negative -MRI showed multiple areas of restricted diffusion bilateral indicating improved infarcts from embolic phenomena -Currently on IV antibiotics for presumed endocarditis I have also resumed her paroxetine, she has as needed Haldol for agitation (4) Diabetic keto-acidosis Qualifiers: Diabetes mellitus type: type 1 Diabetes mellitus complication detail: without coma Qualified Code(s): E10.10 - Type 1 diabetes mellitus with ketoacidosis without coma Is this a current diagnosis for this admission?: Yes Plan: - RESOLVED Likely precipitated by sepsis -A1c 10 -Incision to long-acting insulin, scheduled and sliding scale -Accu-Cheks -Hypoglycemia protocol (5) Foreign body of right upper arm Is this a current diagnosis for this admission?: Yes Plan: 05/22/2020 General surgery consulted: Planning to hold off on needle removal for now due to CVL complication Per general surgery: "Cancel plans for foreign body removal right arm until the above tasks complete. 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 Perrin consulted. Recommend to repeat CT chest once ongoing infection has resolved -Possible CT-guided needle biopsy - Time Time Spent with patient: 25-34 minutes Medications reviewed and adjusted accordingly: Yes Anticipated Discharge Disposition: Home, Self Care Anticipated Discharge Timeframe: to be determined
[2020-05-28] MEDS: DIPHENHYDRAMINE HCL 25 MG CAPSULE PO PRN (15:43)
[2020-05-28 16:37] LABS: ALPHA-1-GLOBULIN 1 7.7 % (1.1-6.6); ALPHA-2-GLOBULIN 6.2 % (3.0-12.6); CSF ALBUMIN 56.8 % (56.8-76.4); PRE ALBUMIN 1.7 % (2.2-7.1)
[2020-05-28] MEDS: MELATONIN 5 MG TABLET PO PRN (21:39)
[2020-05-28] MEDS: THIAMINE HCL 100 MG in NORMAL SALINE 50 ML IV SCH (21:50)
[2020-05-29] MEDS: NAFCILLIN SODIUM 2 GM in DEXTROSE 5%-WATER 100 ML IV SCH ×6 (01:04→21:47)
[2020-05-29] MEDS: GABAPENTIN 300 MG CAPSULE PO SCH ×3 (05:26→17:26)
[2020-05-29] MEDS: ONDANSETRON HCL INJ/PF 4 MG/2 ML SDV IV PRN ×2 (06:37→15:45)
[2020-05-29 07:02] LABS: CSF PE GAMMA GLOBULIN 12.8 % (3.0-13.0); PROT ELEC MSPIKE Not Observed % (Not Observ)
[2020-05-29 08:43] LABS: ABSOLUTE BASOPHILS # (AUTO) 0.1 10^3/uL (0.0-0.2); ABSOLUTE EOSINOPHILS # (AUTO) 0.1 10^3/uL (0.0-0.6); ABSOLUTE LYMPHOCYTES (AUTO) 2.3 10^3/uL (0.5-4.7); ABSOLUTE MONOCYTES (AUTO) 0.7 10^3/uL (0.1-1.4); ABSOLUTE NEUT (AUTO) 10.6 10^3/uL (1.7-8.2); BASOPHILS % (AUTO) 0.4 % (0-2); HEMATOCRIT 28.6 % (36.0-47.0); HEMOGLOBIN 9.6 g/dL (12.0-15.5); LYMPHOCYTES % (AUTO) 16.4 % (13-45); MEAN CORPUSCULAR HEMOGLOBIN 29.4 pg (27.0-33.4); MEAN CORPUSCULAR HGB CONC 33.5 g/dL (32.0-36.0); MEAN CORPUSCULAR VOLUME 88 fl (80-97); MONOCYTES % (AUTO) 5.3 % (3-13); PLATELET COUNT 340 10^3/uL (150-450); RED BLOOD COUNT 3.26 10^6/uL (3.72-5.28); RED CELL DISTRIBUTION WIDTH 14.7 % (11.5-14.0); SEGMENTED NEUTROPHILS % (AUTO) 76.9 % (42-78); TOTAL CELLS COUNTED % (AUTO) 100 %; WHITE BLOOD COUNT 13.8 10^3/uL (4.0-10.5)
[2020-05-29 09:06] LABS: ALBUMIN 2.9 g/dL (3.5-5.0); ALKALINE PHOSPHATASE 118 U/L (38-126); ANION GAP 8 (5-19); ASPARTATE AMINO TRANSFERASE 14 U/L (14-36); BILIRUBIN,DIRECT 0.2 mg/dL (0.0-0.4); BILIRUBIN,TOTAL 0.5 mg/dL (0.2-1.3); BLOOD UREA NITROGEN 5 mg/dL (7-20); CALCIUM 8.8 mg/dL (8.4-10.2); CARBON DIOXIDE 27 mmol/L (22-30); CHLORIDE 101 mmol/L (98-107); GLUCOSE 270 mg/dL (75-110); POTASSIUM 4.5 mmol/L (3.6-5.0)
[2020-05-29] MEDS: INSULIN REG, HUMAN 100 UNIT/ML 3 ML VIAL (PYX) SUBCUT SCH ×4 (09:13→21:51)
[2020-05-29] MEDS: INSULIN LISPRO 100 UNIT/ML 3 ML VIAL SUBCUT SCH ×3 (09:14→17:32)
[2020-05-29] MEDS: PAROXETINE HCL 20 MG TABLET PO SCH (09:18)
[2020-05-29] MEDS: POTASSIUM CHLORIDE 10 MEQ TABLET.ER PO SCH ×2 (09:18→21:46)
[2020-05-29] MEDS: NICOTINE 21 MG/24 HR PATCH.TD24 TD SCH (09:19)
[2020-05-29] MEDS: INSULIN GLARGINE,HUM.REC.ANLOG 1,000 UNIT/10 ML VIAL SUBCUT SCH (09:21)
[2020-05-29] MEDS: DOCUSATE SODIUM 100 MG CAPSULE PO SCH (09:21)
[2020-05-29] MEDS: BUPRENORPHINE HCL 2 MG SUBLINGUAL TABLET SL SCH ×2 (09:36→17:26)
[2020-05-29] MEDS ORDERED: LIDOCAINE 2% INJ-PF (20 MG/ML) 10 ML AMPUL ONE (12:09)
[2020-05-29] MEDS ORDERED: PROPOFOL INJ 200 MG/20 ML VIAL IV ONE (12:09)
[2020-05-29] MEDS ORDERED: NORMAL SALINE 1000 ML 1,000 ML IV ONE (14:00)
--- NOTE | 2020-05-29 15:24 | RADIOLOGY REPORT (SQ) ---
EXAM DESCRIPTION: PICC INSERTION IMAGES COMPLETED DATE/TIME: 05/29/2020 3:13 pm REASON FOR STUDY: needs 6 weeks of IV abx COMPARISON: None. FLUOROSCOPY TIME: 9 seconds of fluoroscopy was used. 1 images saved to PACS. TECHNIQUE: Fluoroscopic and ultrasound guided PICC placement. LIMITATIONS: None. PROCEDURE: After written consent and assessment were obtained, the patient was brought into the fluo roscopy room and placed supine on the table. Ultrasound evaluation of potential access sites were per formed. After successfully identifying a patent left basilic vein, the left arm was prepped and drape d in a sterile fashion along with the ultrasound probe. The entry site was anesthetized with 1% lidoc meera. A 21 gauge 7 cm needle was advanced through the skin and into the basilic vein under live ultra sound guidance. An ultrasound image was saved to PACS confirming access site. A .018 guide wire was then inserted through the needle and into the venous system. The needle was then removed and an 11 b lade scalpel was used to make a 1cm skin incision. A 5 fr peel-away sheath was advanced over the wir e and into the venous system. A measurement was then made using the existing wire and live fluoroscop ic guidance. The wire was then removed and trimmed. The PICC was advanced through the peel-away sheat h and into the venous system. The peel-away sheath was removed and the catheter was adhered to the pa tients arm with a stat lock. The catheter was then aspirated and flushed and a sterile bandage was pl aced over the access site. A fluoroscopic spot image was saved to PACS confirming the catheter tip w ithin the superior vena cava. IMPRESSION: SUCCESSFUL PLACEMENT OF A 5 FR DUAL LUMEN 36 CM PICC IN THE LEFT BASILIC VEIN. COMMENT: Patient medication list reviewed: Yes- Quality ID# [id number]:Eligible professional attests to doc umenting in the medical record they obtained, updated, or reviewed the patient's current medications. . Quality ID 145: Final reports for procedures using fluoroscopy that document radiation exposure mikayla charisma, or exposure time and number of fluorographic images (if radiation exposure indices are not avail able) Quality ID #76: The patient was prepped and draped using maximum sterile barrier technique including cap, mask, sterile gown, sterile gloves, a large sterile sheet, hand hygiene, and 2% Chlorhexidine fo r cutaneous antisepsis. When ultrasound is used, sterile ultrasound techniques are followed requiring sterile gel and sterile probes. TECHNICAL DOCUMENTATION: JOB ID: [id number] 2010 [employer]- All Rights Reserved rev-12/02 Reading location - IP/workstation name: [id number]
[2020-05-29] MEDS: DIPHENHYDRAMINE HCL 25 MG CAPSULE PO PRN (15:42)
[2020-05-29] MEDS: ACETAMINOPHEN 325 MG TABLET NG PRN ×2 (15:42→21:54)
[2020-05-29] MEDS ORDERED: NORMAL SALINE 10 ML SDV (AFTER EACH USE) IV PRN (16:00)
--- NOTE | 2020-05-29 17:00 | XCELERA REPORT ---
Study ID: [id number] [id number] Transesophageal Echocardiogram Report Name: ИВАН MONTELONGO Age: 35 yrs Gender: Female : 1985 Patient Status: Inpatient Patient Location: [address] [place] [address] Study Date: 05/29/2020 12:05 PM History: IVDU Bacteremia Height: 66 in Weight: 150 lb BSA: 1.8 m2 Reason For Study: endocarditis Ordering Physician: JOSIE HERNANDEZ Performed By: Lakisha Olmedo Interpretation Summary Left ventricular systolic function is normal. Ejection Fraction = >55%. The right ventricle is normal in size and function. Medium to large size stalked vegetation measureing 2.8 cm x 1 cm attached to the posterior mitral leaflfet Given size of the vegetation it is prolpasing freely into the LA and back into LV No hemodynamically significant valvular aortic stenosis. There is trace tricuspid regurgitation. There is no pericardial effusion. Procedure A complete two-dimensional transesophageal echocardiogram was performed (2D, spectral and color flow Doppler). Informed consent for Transesophageal Echocardiogram, and use of a contrast agent as needed, was obtained prior to the procedure. The patient was brought to the OR Holding 4 in a fasting state. An intravenous line was placed. A topical anesthetic agent was used for oropharangeal anesthesia. A bite block was inserted. IV conscious sedation was administered using Per anesthesia. The patient's vital signs, including blood pressure, heart rate, pulse oximetry and cardiac rhythm were monitored thoughout the procedure. The transesophageal probe was passed without difficulty. The usual views were obtained; basal, mid-esophageal, transgastric and aortic views. The patient tolerated the procedure well without evidence of orophangeal or esophageal trauma. Subsequent to all the images being obtained the probe was removed with out trauma. Left Ventricle The left ventricle is normal in size. There is no thrombus. There is normal left ventricular wall thickness. Left ventricular systolic function is normal. Ejection Fraction = >55%. No regional wall motion abnormalities noted. Right Ventricle The right ventricle is normal in size and function. Atria The interatrial septum is intact with no evidence for an atrial septal defect. There is no Doppler evidence for an atrial septal defect. The left atrial size is normal. Right atrial size is normal. Mitral Valve The mitral valve leaflets appear thickened, but open well. Medium to large size stalked vegetation measureing 2.8 cm x 1 cm attached to the posterior mitral leaflfet Given size of the vegetation it is prolpasing freely into the LA and back into LV. There is no mitral valve stenosis. There is mild to moderate mitral regurgitation. The mitral regurgitant jet is eccentrically directed. Tricuspid Valve The tricuspid valve is normal in structure and function. There is no tricuspid valve vegetation. There is trace tricuspid regurgitation. Aortic Valve The aortic valve opens well. The aortic valve is trileaflet. There is no aortic valvular vegetation. No hemodynamically significant valvular aortic stenosis. No aortic regurgitation is present. Pulmonic Valve The pulmonic valve is not well visualized. Arteries The aortic root is normal size. Pericardium There is no pericardial effusion. : JOSIE HERNANDEZ Anil
--- NOTE | 2020-05-29 17:54 | PDOC PROGRESS REPORT ---
Subjective Date:: 05/29/20 Subjective:: ИВАН MONTELONGO is a 35 year old female with past medical history significant f or IV drug abuse, diabetes, ulcerative colitis, chronic pain who presents to the ED via EMS after her parents called 911 due to the patient having confusion and combativeness. Patient was brought to ED and started on IV fluids. CT of abdomen/pelvis showed enlarged edematous right kidney possible pyelonephritis although UA was not consistent with infection. No hydronephrosis. UA did show massive amount of glucose as well as ketones. Patient has multiple small wounds on her upper extremities consistent with possible injection sites and small areas of potential cellulitis. Reportedly, patient has been off IV drugs which is not consistent with physical exam findings. History cannot be obtained by the patient as she is confused and I have tried many times to contact her family via the phone numbers in the chart and they do not answer the phone or return my calls. History obtained solely from the chart and ED personnel. Head CT showed no acute findings. Chest x-ray showed a subtle ovoid groundglass opacity in the right middle lung infectious or inflammatory. CT chest was not obtained in ED and I have ordered a CT chest to evaluate this possible lung infarction or lung abscess which could have been implanted from IV drug abuse. IV fluids started. Patient became confused and combative and pulled out her IV and she was put in restraints. She is oriented only to herself on admission. Labs are remarkable for a gap acidosis and a blood sugar of 417. She was not yet started on insulin drip. I requested that the ED start this promptly during my initial discussion with attending physician. Patient's troponin is mildly elevated and this is trending. Suspect infected endocarditis as a source of patient's DKA. Echocardiogram ordered. Vancomycin and cefepime started. Blood cultures pending. 05/20/2020 Patient still confused and combative at times. IV Ativan as needed being given intermittently. Per nursing, patient twisted her arm and then was complaining of it hurting. We will get an x-ray to look at her right wrist. Fever has resolved, troponin flat, lipase normal, ammonia negative. A1c is 10. Low phosphorus and elevated lactic acid. Blood cultures growing staph aureus in both bottles. Covid testing is pending. Blood sugar is dropped to an acce ptable level. CT chest shows a suspicious mass and I will discuss getting a biopsy with her family. I suspect may be an abscess rather than malignancy but radiologist report states it is very suspicious for malignancy. I have also ordered a lumbar puncture with appropriate labs. Echocardiogram has been done but not read yet. Clinical picture seems consistent with infectious endocarditis with sepsis. 05/21/2020 Patient's mentation has not improved in any meaningful way. She continues to answer almost all questions with her birthdate. White blood cell count is trending down, blood sugar is now in the mid 200s and we have restarted subcutaneous insulin. Blood cultures are now growing MSSA in both bottles and patient is continued on broad-spectrum antibiotics for now. Echocardiogram s howed normal cardiac function with mild pulmonary hypertension and no vegetations. Lumbar puncture has been delayed due to INR being approximately 1.6 and the radiologist would like it at 1.5 or below. Patient was given vitamin K today and recheck of INR is actually higher. Patient has no signs of bleeding. PICC line will be placed today. MRI brain ordered however according to patient's mother she has a broken needle in her right arm. I have consulted general surgery to remove this broken needle given that per the x-rays it seems to be rather superficial. We will wait to see what they think about removing it. Antibiotics continue. BABAK ordered. Right wrist x-ray did not show any fra ctures. Patient remains in restraints for her own safety. Covid is negative. She should be moved to a general IMCU bed as soon as possible. 05/22/2020 Patient's mentation does not seem to be any improved today. She is still requiring restraints to protect her lines. We will drop an NG tube today and start tube feeds that she has had no nutrition for the past 2 days. Central line was put in yesterday by general surgery and due to patient agitation and movement, seems to have a small mediastinal hemorrhage according to general surgery whom I spoke with today. They recommended holding on any procedures today and having these done tomorrow instead. I also recommended stopping all blood thinners for the time being. We will get a dry CT head in the meantime. General surgery is also unable to remove the broken needle in the patient's right arm in order to get her an MRI due to anesthesia concerns about electrolytes given that the patient has a potassium of 3.2. I discussed with them the notion of correcting the electrolytes and readdressing, but since we have learned about the CVL complication, we will hold off on all procedures until tomorrow. LP and BABAK will also be delayed because of this. Antibiotics continue. Now the patient is off of insulin drip, we will switch her fluids to LR given that she is developing hypernatremia. Once she has tube feeding and free water running through an NG tube, we could potentially stop IV fluids altogether. On the right side, INR is lower at 1.28 which would allow any of the above procedures if we were actually able to do them today. I called the patient's mother yesterday and gave her a very detailed extensive update on the many diagnostic tests and treatments we are providing to the patient. We spoke for at least 30 to 45 minutes total. Apparently, Ms. Noonan had her cell phone set to ignore outside phone calls automatically and she states this feature is been turned off so that I can communicate with her when needed. 05/23/2020 We will be trying to get the patient an LP today. I have added Zyprexa and instructed the nurse to give her an extra dose of 2 mg Ativan prior to going down for this procedure. If needed, we can give additional sedation on top of this. It is imperative that we get this lumbar puncture today. This procedure has been ordered for the past few days and was not able to be done due to the vascular complication of the central line placement and also the patient's severe agitation during the attempted procedure. ID consult note has been done although it seems that they have not noticed the patient has already had an echocardiogram 3 days ago and I am actually trying to arrange a BABAK given that the TTE did not show endocarditis. We have had multiple attempts at getting an LP and will try again today. I am available to discuss the case with them anytime if they need help interpreting the plan. They recommended stopping vancomycin and cefepime and acyclovir, start nafcillin. I spoke with Dr. Knutson myself today and clarified the current results and the plan going forward. I was not sure what he meant by working up the patient's shoulder or which shoulder it might be and he states this was simply part of his discussion with the pharmacist and he was not sure of it either. I spoke with the patient's father today and gave him an update as well. HIV negative. Hepatitis panel pending. Temperature is a bit higher to 100.1 today. We still need to get an LP, foreign body needle removed, MRI brain. 05/24/2020 Lumbar puncture done today and initial CSF results show high white blood cells with a mononuclear predominance, high glucose and high protein. Appears it could be consistent with a viral encephalitis. Cultures have been sent and are pending. I will restart acyclovir IV for the time being. This will continue until we get finalized CSF culture results. I had a long discussion with the patient's daughter and sister over the phone today. I answered many questions. The next step in the patient's treatment will be to get a BAABK hopefully on Tuesday. We need to confirm a valvular vegetation and potentially move forward with CT surgery consult at an outside hospital if this is confirmed. Patient is perhaps a bit more alert today and states the date is [address] is at [facility]. She also recognizes her daughter. She continues to keep her eyes closed for most the day. Potassiums low we will replete this. Blood sugar is still high and I have increased her Lantus. 05/25/2020 Patient is now awake and alert much more so than she has been throughout this entire admission. She is oriented to herself, place, disposition and she knows that the date is 2019 but is unsure about the rest of the date. Per nursing, patient requested to be removed from restraints and was able to calmly drink a glass of apple juice without coughing or choking a single time. After a few hours however, patient became agitated and attempted to get out of her bed and reportedly fell and potentially hit her head. We will get an MRI of her brain which radiology and general surgery have both stated is safe despite the fact she has a hypodermic needle in her right arm. They do not believe this metal is ferromagnetic and would move during a simple MRI of the brain. Patient's mother is at bedside trying to calm her down. Latest blood cultures are negative. I dug far back into her admission history in the EMR and found that the patient had a previous episode of what was presumed to be viral meningitis in 2010, interestingly she was admitted to the OB service at that time. That episode per the chart seem to be much less severe than the current 1 and the patient was discharged in stable condition when this resolved. CSF results here seem consistent with potential viral meningitis/encephalitis rather than a bacterial source. Patient will regardless need BABAK tomorrow. She is very high risk for IE and we will continue treating as such. Since I found the records from 2010, I have restarted the patient's IV acyclovir to treat possible underlying viral meningitis/encephalitis. 05/26/2020 This afternoon, I spoke with Dr. Mtz today regarding the BABAK and he stated this will not be able to be done here due to the BABAK machine now being broken without any clear timeline for it to be fixed. Instead the patient will need to be transferred to an outside facility to have a BABAK done. Noted ID recommendations as below. I have ordered CT chest/abdomen/pelvis with contrast as they requested. Discussed nafcillin dosing with pharmacy and they stated efficacy is the same for every 4 hour dosing versus continuous. Continuous infusion would potentially complicate the administration of other IV medications and keep the patient from participating in therapy. I expect patient will need transfer to a tertiary hospital for definitive surgical treatment of her likely infected endocarditis and now that BABAK is not an option here she may need transfer sooner than that. We will work on getting the test laid out by ID and reach out to an outside hospital to see their availability for beds. 05/27/20 She was seen and examined at bedside. Her mental status is back to baseline. She is alert, awake, coherent able to hold a conversation. She has been afebrile since May 25, 2020. WBC count 12.5. ID recommendations noted, acyclovir stopped today. She is currently on nafcillin for endocarditis MSSA. She would need to be transferred to a tertiary care facility for transesophageal echocardiogram placated by possible septic emboli to the lung. Repeat CT chest showed unchanged solid nodule superior segment right lower lobe measuring just under 2 cm. Right paratracheal lesion 4.8 x 3 cm and 16 Hounsfield units not significantly changed from prior CT chest and likely represents hematoma. CT abdomen negative. I was able to confirm her Subutex dose from her addiction clinic and I have resumed her 8 mg twice daily of Subutex. Will follow up with transfer center from [facility] tomorrow and would also call [facility] and [facility] for possible transfer. 05/28/20 She was seen and examined at bedside. Mental status is improved, awake, alert and talking. Denies any chest pain, SOB. She remains afebrile. Initial plan was to transfer her for a much needed BABAK however she might be able to get the BABAK done in-house. And depending on what the BABAK shows she still might need to get transferred for cardiothoracic consult and assessment. She is doing well on nafcillin. And has remained afebrile. 05/29/20 She was seen and examined at bedside. She is awake, alert. Denies any chest pain, SOB. Complaining of poor sleep. Afebrile with good appetite. BABAK result showed mitral vegetation measuring 2.8 x 1 cm attached to the posterior leaflet. Currently on day 6 of nafcillin. PICC line inserted for prolonged IV antibiotics. Will call [facility] for possible transfer and or cardiothoracic consult. Reason For Visit: ACUTE METABOLIC ENCEPHALOPATHY Physical Exam Vital Signs: Temp Pulse Resp BP Pulse Ox 100.2 F 92 19 94/63 L 100 05/29/20 12:42 05/29/20 14:00 05/29/20 13:12 05/29/20 13:36 05/29/20 13:12 Intake & Output 05/28/20 05/29/20 05/30/20 06:59 06:59 06:59 Intake Total 2105 1141 1100 Output Total 0 Balance 2105 1141 1100 Weight 70.9 kg 72.3 kg General appearance: PRESENT: no acute distress, cooperative Head exam: PRESENT: atraumatic Eye exam: PRESENT: EOMI, PERRLA Mouth exam: PRESENT: moist Neck exam: PRESENT: full ROM Respiratory exam: PRESENT: clear to auscultation brandon, symmetrical, unlabored Cardiovascular exam: PRESENT: RRR, +S1, +S2 GI/Abdominal exam: PRESENT: normal bowel sounds, soft. ABSENT: rebound, tenderness Extremities exam: PRESENT: full ROM Musculoskeletal exam: PRESENT: full ROM Neurological exam: PRESENT: alert, awake, oriented to person, oriented to place, oriented to time, oriented to situation Psychiatric exam: PRESENT: normal mood Skin exam: PRESENT: normal color Results Laboratory Results: 05/29/20 08:31 05/29/20 08:31 05/24/20 05/29/20 05/29/20 11:50 08:31 08:31 WBC 13.8 H RBC 3.26 L Hgb 9.6 L Hct 28.6 L MCV 88 MCH 29.4 MCHC 33.5 RDW 14.7 H Plt Count 340 Seg Neutrophils % 76.9 Sodium 136.1 L Potassium 4.5 Chloride 101 Carbon Dioxide 27 Anion Gap 8 BUN 5 L Creatinine 0.54 Est GFR ( Amer) > 60 Glucose 270 H Calcium 8.8 Total Bilirubin 0.5 AST 14 Alkaline Phosphatase 118 Total Protein 7.0 Albumin 2.9 L CSF Total Protein PEP 76.0 H CSF Prealbumin 1.7 L CSF Albumin 56.8 CSF Pnktq-[id number] 7.7 H CSF Coqao-3-Axddsnqr 6.2 CSF Beta Globulin 14.7 CSF Gamma Globulin 12.8 CSF PEP M-John Not Observed 05/19/20 05/19/20 05/20/20 11:56 20:15 03:12 Troponin I 0.026 0.041 0.046 Impressions: Renal Ultrasound 05/19/20 00:00 IMPRESSION: There is fullness of the right renal pelvis which may represent an extrarenal pelvis or mild hydronephrosis. Abdomen/Pelvis CT 05/19/20 12:06 IMPRESSION: 1. Asymmetrically enlarged, likely edematous, right kidney suggestive of pyelonephritis. Recommend correlation with UA. No hydronephrosis. 2. No evidence of acute intra-abdominal/pelvic process. Normal appendix. 3. Moderate formed stool throughout the colon. Wrist X-Ray 05/20/20 00:00 IMPRESSION: NEGATIVE STUDY OF THE RIGHT WRIST. NO RADIOGRAPHIC EVIDENCE OF ACUTE INJURY. Forearm X-Ray 05/21/20 00:00 IMPRESSION: 7 mm needle fragment in the antecubital fossa soft tissues Hand X-Ray 05/21/20 00:00 IMPRESSION: No radiopaque foreign body identified Humerus X-Ray 05/21/20 00:00 IMPRESSION: 7 mm needle fragment in the antecubital fossa soft tissues Fluoroscopy 05/22/20 00:00 IMPRESSION: FLUOROSCOPIC EVALUATION OF INDWELLING CENTRAL CATHETER, WITHOUT EVIDENCE FOR COMPLICATION OR EXTRAVASATION. Head CT 05/22/20 00:00 IMPRESSION: Very limited study. No bleed or mass. Subtle decreased attenuation in the right posterior frontal and parietal lobe cannot be excluded as discussed above. EVIDENCE OF ACUTE STROKE: NO. KUB X-Ray 05/23/20 00:00 IMPRESSION: NG tube tip in the upper stomach. Chest X-Ray 05/24/20 00:00 IMPRESSION: 1. Stable aeration with nonspecific prominence of the superior mediastinum. Further evaluation with CT chest is recommended. 2. Enteric tube terminates at the level of the gastric antrum. Lumbar Puncture 05/24/20 00:00 IMPRESSION: Successful fluoroscopic guided lumbar puncture. Head MRI 05/25/20 00:00 IMPRESSION: Extremely limited study. There are however multiple areas of restricted diffusion bilateral indicating infarcts from the embolic phenomena. EVIDENCE OF ACUTE STROKE: Yes embolic Abdomen CT 05/27/20 08:00 IMPRESSION: NORMAL CT OF THE ABDOMEN WITH INTRAVENOUS CONTRAST. Chest CT 05/27/20 08:00 IMPRESSION: No significant change. PICC Line Insertion 05/29/20 00:00 IMPRESSION: SUCCESSFUL PLACEMENT OF A 5 FR DUAL LUMEN 36 CM PICC IN THE LEFT BASILIC VEIN. Assessment and Plan - Diagnosis (1) MSSA (methicillin susceptible Staphylococcus aureus) septicemia Is this a current diagnosis for this admission?: Yes Plan: -History of IV drug use admitted due to altered mental status -Blood culture growing MSSA -Chest CT with contrast showed 2 cm mass in posterior right lobe concerning for malignancy Abdomen/pelvis CT showed enlarged right kidney possible pyelonephritis although UA is not infected - TTE showed normal cardiac function, negative for vegetations, mild pulmonary hypertension - BABAK 2.8 x 1 cm posterior leaflet mitral valve vegetation -Blood culture May 19 showed two bottles positive for MSSA -repeat blood culture May 23 negative for growth -Currently on nafcillin IV every 4 hrs day 6 - will call [facility] and [facility] for possible transfer - ID following (2) Sepsis Qualifiers: Sepsis type: sepsis due to unspecified organism Sepsis acute organ dysfunction status: with acute organ dysfunction Severe sepsis acute organ dysfunction type: encephalopathy Severe sepsis shock status: without septic shock Qualified Code(s): A41.9 - Sepsis, unspecified organism; R65.20 - Severe sepsis without septic shock; G93.40 - Encephalopathy, unspecified Is this a current diagnosis for this admission?: Yes Plan: - Resolved 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 -MRI possible embolic phenomena Abdomen/pelvis CT showed enlarged right kidney possible pyelonephritis although UA is not infected - Chest x-ray showed right middle lobe opacity of unclear etiology Blood cultures 05/23/20 negative -On D6 of nafcillin - ID following (3) Acute metabolic encephalopathy Is this a current diagnosis for this admission?: Yes Plan: - Resolved -likely from septic emboli to brain on top of DKA -CT head negative -MRI showed multiple areas of restricted diffusion bilateral indicating improved infarcts from embolic phenomena -Currently on IV antibiotics for endocarditis I have also resumed her paroxetine, she has as needed Haldol for agitation (4) Diabetic keto-acidosis Qualifiers: Diabetes mellitus type: type 1 Diabetes mellitus complication detail: without coma Qualified Code(s): E10.10 - Type 1 diabetes mellitus with ketoacidosis without coma Is this a current diagnosis for this admission?: Yes Plan: - RESOLVED Likely precipitated by sepsis -A1c 10 -Incision to long-acting insulin, scheduled and sliding scale -Accu-Cheks -Hypoglycemia protocol (5) Foreign body of right upper arm Is this a current diagnosis for this admission?: Yes Plan: 05/22/2020 General surgery consulted: Planning to hold off on needle removal for now due to CVL complication Per general surgery: "Cancel plans for foreign body removal right arm until the above tasks complete. We will continue to follow patient with you." (6) Hepatitis C antibody positive in blood Is this a current diagnosis for this admission?: Yes Plan: Positive hepatitis C antibody HCV RNA negative no indication for treatment (7) Diabetes Qualifiers: Diabetes mellitus type: type 2 Diabetes mellitus watermelon inspector insulin use: unspecified watermelon inspector insulin use status Diabetes mellitus complication status: with unspecified complications Is this a current diagnosis for this admission?: Yes Plan: -A1c 10\\-admits to being poorly compliant with her insulin, as well as insurance issues -Currently on Lantus 232 units, scheduled and sliding scale insulin (8) Mass of lower lobe of right lung Is this a current diagnosis for this admission?: Yes Plan: Seen on chest CT with contrast Dr. Perrin consulted. Recommend to repeat CT chest once ongoing infection has resolved -Possible CT-guided needle biopsy (9) Heroin abuse Is this a current diagnosis for this admission?: Yes Plan: UDS negative but multiple skin wounds consistent with drug abuse - on Subutex - Time Time Spent with patient: 35 or more minutes Medications reviewed and adjusted accordingly: Yes Anticipated Discharge Disposition: Tertiary Anticipated Discharge Timeframe: to be determined
[2020-05-29] MEDS ORDERED: FLUCONAZOLE 100 MG TABLET PO ONE (18:00)
--- NOTE | 2020-05-29 20:38 | PDOC TRANSFER SUMMARY ---
General Admission Date/PCP: 05/19/20 17:19 Resuscitation Status: Full Code - Transfer Diagnosis (1) MSSA (methicillin susceptible Staphylococcus aureus) septicemia Is this a current diagnosis for this admission?: Yes Diagnosis Summary: Plan: -History of IV drug use admitted due to altered mental status -Blood culture growing MSSA -Chest CT with contrast showed 2 cm mass in posterior right lobe concerning for malignancy Abdomen/pelvis CT showed enlarged right kidney possible pyelonephritis although UA is not infected - TTE showed normal cardiac function, negative for vegetations, mild pulmonary hypertension - BABAK 2.8 x 1 cm posterior leaflet mitral valve vegetation -Blood culture May 19 showed two bottles positive for MSSA -repeat blood culture May 23 negative for growth -Currently on nafcillin IV every 4 hrs day 6 - accepted at [facility] - ID following (2) Sepsis Is this a current diagnosis for this admission?: Yes Diagnosis Summary: Plan: - Resolved 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 -MRI possible embolic phenomena Abdomen/pelvis CT showed enlarged right kidney possible pyelonephritis although UA is not infected - Chest x-ray showed right middle lobe opacity of unclear etiology Blood cultures 05/23/20 negative -On D6 of nafcillin - ID following (3) Acute metabolic encephalopathy Is this a current diagnosis for this admission?: Yes Diagnosis Summary: Plan: - Resolved -likely from septic emboli to brain on top of DKA -CT head negative -MRI showed multiple areas of restricted diffusion bilateral indicating improved infarcts from embolic phenomena -Currently on IV antibiotics for endocarditis I have also resumed her paroxetine, she has as needed Haldol for agitation (4) Diabetic keto-acidosis Is this a current diagnosis for this admission?: Yes Diagnosis Summary: Plan: - RESOLVED Likely precipitated by sepsis -A1c 10 -Incision to long-acting insulin, scheduled and sliding scale -Accu-Cheks -Hypoglycemia protocol (5) Foreign body of right upper arm Is this a current diagnosis for this admission?: Yes Diagnosis Summary: 05/22/2020 General surgery consulted: Planning to hold off on needle removal for now due to CVL complication Per general surgery: "Cancel plans for foreign body removal right arm until the above tasks complete. We will continue to follow patient with you. (6) Hepatitis C antibody positive in blood Is this a current diagnosis for this admission?: Yes Diagnosis Summary: Positive hepatitis C antibody HCV RNA negative no indication for treatment (7) Diabetes Is this a current diagnosis for this admission?: Yes Diagnosis Summary: -A1c 10\\-admits to being poorly compliant with her insulin, as well as insurance issues -Currently on Lantus 32 units, scheduled and sliding scale insulin (8) Mass of lower lobe of right lung Is this a current diagnosis for this admission?: Yes Diagnosis Summary: Seen on chest CT with contrast Dr. Perrin consulted. Recommend to repeat CT chest once ongoing infection has resolved -Possible CT-guided needle biopsy (9) Heroin abuse Is this a current diagnosis for this admission?: Yes - Transfer Medications Home Medications: Buprenorphine HCl 8 mg SL BID 05/19/20 Gabapentin [Neurontin 300 mg Capsule] 300 mg PO Q6 05/19/20 Paroxetine HCl [Paxil 20 mg Tablet] 20 mg PO DAILY 05/19/20 Transfer Medications: Current Medications Acetaminophen (Tylenol 325 Mg Tablet) 650 mg NG Q4HP PRN PRN Reason: pain or fever Stop: 06/18/20 18:28 Last Admin: 05/29/20 15:42 Dose: 650 mg Documented by: Buprenorphine HCl (Subutex 2 Mg Sl Tablet) 8 mg SL BID [facility] Stop: 06/03/20 17:59 Last Admin: 05/29/20 17:26 Dose: 8 mg Documented by: Dextrose (Dextrose Inj 50% Syringe (25 Gm/50 Ml)) 12.5 gm IV PRN PRN; Protocol PRN Reason: FOR BG 50-69 IN ALERT PATIENT Stop: 06/27/20 12:36 Dextrose (Dextrose Inj 50% Syringe (25 Gm/50 Ml)) 25 gm IV PRN PRN; Protocol PRN Reason: See Label Comments Stop: 06/27/20 12:36 Diphenhydramine HCl (Benadryl 25 Mg Capsule) 25 mg PO Q6HP PRN PRN Reason: ITCHING Stop: 06/26/20 19:50 Last Admin: 05/29/20 15:42 Dose: 25 mg Documented by: Docusate Sodium (Colace 100 Mg Capsule) 100 mg PO DAILY [facility] Stop: 06/19/20 09:59 Last Admin: 05/29/20 09:21 Dose: 100 mg Documented by: Enoxaparin Sodium (Lovenox Inj 40 Mg/0.4 Ml Disp.Syrin) 40 mg SUBCUT DAILY [facility] Stop: 06/19/20 09:59 Last Admin: 05/22/20 09:49 Dose: Not Given Documented by: Gabapentin (Neurontin 300 Mg Capsule) 300 mg PO Q6 RACIEL Stop: 06/26/20 11:59 Last Admin: 05/29/20 17:26 Dose: 300 mg Documented by: Glucagon (Glucagen Inj 1 Mg Vial) 1 mg SUBCUT PRN PRN; Protocol PRN Reason: Evaluate for BG < 70 Stop: 06/27/20 12:36 Glucose (Glutose 40% Gel 15 Gm Tube) 30 gm PO PRN PRN; Protocol PRN Reason: FOR BG < 50 IN ALERT PATIENT Stop: 06/24/20 19:59 Glucose (Glutose 40% Gel 15 Gm Tube) 15 gm PO PRN PRN; Protocol PRN Reason: For BG 50-69 in Alert Patient Stop: 06/27/20 12:36 Haloperidol Lactate (Haldol 5 Mg/Ml Inj 1 Ml Vial) 5 mg IV Q6HP PRN PRN Reason: RESTLESSNESS/AGITATION Stop: 06/20/20 08:23 Last Admin: 05/24/20 01:30 Dose: 5 mg Documented by: Heparin Sodium (Porcine) (Heparin Flush 10 Unit/Ml 5 Ml Disp.Syrg) 30 unit IV Q12 RACIEL Stop: 06/28/20 21:59 Heparin Sodium (Porcine) (Heparin Flush 10 Unit/Ml 5 Ml Disp.Syrg) 30 unit IV .AFTER EACH USE PRN Stop: 06/28/20 15:59 Hydroxyzine Pamoate (Vistaril 25 Mg Capsule) 25 mg PO QHS RACIEL Stop: 06/28/20 21:59 Thiamine HCl 100 mg/ Sodium (Chloride) 51 mls @ 102 mls/hr IV QHS RACIEL Stop: 06/18/20 21:59 Last Infusion: 05/28/20 23:26 Dose: Infused Documented by: Nafcillin Sodium 2 gm/ (Dextrose) 100 mls @ 200 mls/hr IV Q4 RACIEL Stop: 05/30/20 17:59 Last Admin: 05/29/20 17:27 Dose: 200 mls/hr Documented by: Insulin Glargine (Lantus Insulin 100 Unit/1 Ml 10 Ml) 32 unit SUBCUT DAILY RACIEL Stop: 06/29/20 09:59 Insulin Human Lispro (Humalog Insulin 100 Unit/1 Ml 3 Ml Vial) 10 unit SUBCUT AC RACIEL Stop: 06/29/20 07:59 Insulin Human Regular (Humulin R (Pyxis) Insulin 100 Unit/Ml 3ml) 0 - 12 unit SUBCUT ACHS [facility]; Protocol Stop: 06/24/20 21:59 Last Admin: 05/29/20 17:33 Dose: 8 unit Documented by: Melatonin (Melatonin 5 Mg Tablet) 10 mg PO HSP PRN PRN Reason: FOR INSOMNIA Stop: 06/25/20 20:44 Last Admin: 05/28/20 21:39 Dose: 10 mg Documented by: Nicotine (Nicoderm 21 Mg/24 Hr Transderm Patch) 1 each TD DAILY RACIEL Stop: 06/27/20 11:59 Last Admin: 05/29/20 09:19 Dose: 1 each Documented by: Ondansetron HCl (Zofran Odt 4 Mg Tablet) 4 mg PO Q4HP PRN PRN Reason: FOR NAUSEA/VOMITING Stop: 06/18/20 18:28 Last Admin: 05/28/20 15:43 Dose: 4 mg Documented by: Ondansetron HCl (Zofran Inj/Pf 4 Mg/2 Ml Sdv) 4 mg IV Q4HP PRN PRN Reason: FOR NAUSEA/VOMITING Stop: 06/18/20 18:28 Last Admin: 05/29/20 15:45 Dose: 4 mg Documented by: Paroxetine HCl (Paxil 20 Mg Tablet) 20 mg PO DAILY [facility] Stop: 06/26/20 09:59 Last Admin: 05/29/20 09:18 Dose: 20 mg Documented by: Pharmacy Profile Note (Medication Communication Order) 1 each MC .NOTICE NR Stop: 06/21/20 13:29 Potassium Chloride (Klor-Con 10 Meq Tablet Er) 20 meq PO Q12 [facility] Stop: 06/25/20 21:59 Last Admin: 05/29/20 09:18 Dose: 20 meq Documented by: Sodium Chloride (Nacl 0.9% Inj/Pf 10 Ml Sdv) 10 ml IV Q12 [facility] Stop: 06/28/20 21:59 Sodium Chloride (Nacl 0.9% Inj/Pf 10 Ml Sdv) 10 ml IV .AFTER EACH USE PRN Stop: 06/28/20 15:59 - Allergies Allergies/Adverse Reactions: infliximab [From Remicade] Allergy (Severe, Verified 05/19/20 12:43) Anaphylaxis clindamycin [Clindamycin] Allergy (Verified 05/19/20 12:43) sulfamethoxazole [From Bactrim] Allergy (Verified 05/19/20 12:43) trimethoprim [From Bactrim] Allergy (Verified 05/19/20 12:43) codeine [Codeine] Adverse Reaction (Mild, Verified 05/19/20 12:43) NSAIDS (Non-Steroidal Anti-Inflamma Adverse Reaction (Verified 05/19/20 12:43) Hospital Course Hospital Course: ИВАН MONTELONGO is a 35 year old female with past medical history significant for IV drug abuse, diabetes, ulcerative colitis, chronic pain who presents to the ED via EMS after her parents called 911 due to the patient having confusion and combativeness. Patient was brought to ED and started on IV fluids. CT of abdomen/pelvis showed enlarged edematous right kidney possible pyelonephritis a lthough UA was not consistent with infection. No hydronephrosis. UA did show massive amount of glucose as well as ketones. Patient has multiple small wounds on her upper extremities consistent with possible injection sites and small areas of potential cellulitis. Reportedly, patient has been off IV drugs which is not consistent with physical exam findings. History cannot be obtained by the patient as she is confused and I have tried many times to contact her family via the phone numbers in the chart and they do not answer the phone or return my calls. History obtained solely from the chart and ED personnel. Head CT showed no acute findings. Chest x-ray showed a subtle ovoid groundglass opacity in the right middle lung infectious or inflammatory. CT chest was not obtained in ED and I have ordered a CT chest to evaluate this possible lung infarction or lung abscess which could have been implanted from IV drug abuse. IV fluids started. Patient became confused and combative and pulled out her IV and she was put in restraints. She is oriented only to herself on admission. Labs are remarkable for a gap acidosis and a blood sugar of 417. She was not yet started on insulin drip. I requested that the ED start this promptly during my initial discussion with attending physician. Patient's troponin is mildly elevated and this is trending. Suspect infected endocarditis as a source of patient's DKA. Echocardiogram ordered. Vancomycin and cefepime started. Blood cultures pending. 05/20/2020 Patient still confused and combative at times. IV Ativan as needed being given intermittently. Per nursing, patient twisted her arm and then was complaining of it hurting. We will get an x-ray to look at her right wrist. Fever has resolved, troponin flat, lipase normal, ammonia negative. A1c is 10. Low phosphorus and elevated lactic acid. Blood cultures growing staph aureus in both bottles. Covid testing is pending. Blood sugar is dropped to an acceptable level. CT chest shows a suspicious mass and I will discuss getting a biopsy with her family. I suspect may be an abscess rather than malignancy but radiologist report states it is very suspicious for malignancy. I have also ordered a lumbar puncture with appropriate labs. Echocardiogram has been done but not read yet. Clinical picture seems consistent with infectious endocarditis with sepsis. 05/21/2020 Patient's mentation has not improved in any meaningful way. She continues to answer almost all questions with her birthdate. White blood cell count is trending down, blood sugar is now in the mid 200s and we have restarted subcutaneous insulin. Blood cultures are now growing MSSA in both bottles and patient is continued on broad-spectrum antibiotics for now. Echocardiogram showed normal cardiac function with mild pulmonary hypertension and no vegetations. Lumbar puncture has been delayed due to INR being approximately 1.6 and the radiologist would like it at 1.5 or below. Patient was given vitamin K today and recheck of INR is actually higher. Patient has no signs of bleeding. PICC line will be placed today. MRI brain ordered however according to patient's mother she has a broken needle in her right arm. I have consulted general surgery to remove this broken needle given that per the x-rays it seems to be rather superficial. We will wait to see what they think about removing it. Antibiotics continue. BABAK ordered. Right wrist x-ray did not show any fractures. Patient remains in restraints for her own safety. Covid is negative. She should be moved to a general CU bed as soon as possible. 05/22/2020 Patient's mentation does not seem to be any improved today. She is still requiring restraints to protect her lines. We will drop an NG tube today and start tube feeds that she has had no nutrition for the past 2 days. Central line was put in yesterday by general surgery and due to patient agitation and movement, seems to have a small mediastinal hemorrhage according to general surgery whom I spoke with today. They recommended holding on any procedures t david and having these done tomorrow instead. I also recommended stopping all blood thinners for the time being. We will get a dry CT head in the meantime. General surgery is also unable to remove the broken needle in the patient's right arm in order to get her an MRI due to anesthesia concerns about electrolytes given that the patient has a potassium of 3.2. I discussed with them the notion of correcting the electrolytes and readdressing, but since we have learned about the CVL complication, we will hold off on all procedures until tomorrow. LP and BABAK will also be delayed because of this. Antibiotics continue. Now the patient is off of insulin drip, we will switch her fluids to LR given that she is developing hypernatremia. Once she has tube feeding and free water running through an NG tube, we could potentially stop IV fluids altogether. On the right side, INR is lower at 1.28 which would allow any of the above procedures if we were actually able to do them today. I called the patient's mother yesterday and gave her a very detailed extensive update on the many diagnostic tests and treatments we are providing to the patient. We spoke for at least 30 to 45 minutes total. Apparently, Ms. Noonan had her cell phone set to ignore outside phone calls automatically and she states this feature is been turned off so that I can communicate with her when needed. 05/23/2020 We will be trying to get the patient an LP today. I have added Zyprexa and instructed the nurse to give her an extra dose of 2 mg Ativan prior to going down for this procedure. If needed, we can give additional sedation on top of this. It is imperative that we get this lumbar puncture today. This procedure has been ordered for the past few days and was not able to be done due to the vascular complication of the central line placement and also the patient's severe agitation during the attempted procedure. ID consult note has been done although it seems that they have not noticed the patient has already had an echocardiogram 3 days ago and I am actually trying to arrange a BABAK given that the TTE did not show endocarditis. We have had multiple attempts at getting an LP and will try again today. I am available to discuss the case with them anytime if they need help interpreting the plan. They recommended stopping vancomycin and cefepime and acyclovir, start nafcillin. I spoke with Dr. Cook myself today and clarified the current results and the plan going forward. I was not sure what he meant by working up the patient's shoulder or which shoulder it might be and he states this was simply part of his discussion with the pharmacist and he was not sure of it either. I spoke with the patient's father today and gave him an update as well. HIV negative. Hepatitis panel pending. Temperature is a bit higher to 100.1 today. We still need to get an LP, foreign body needle removed, MRI brain. 05/24/2020 Lumbar puncture done today and initial CSF results show high white blood cells with a mononuclear predominance, high glucose and high protein. Appears it could be consistent with a viral encephalitis. Cultures have been sent and are pending. I will restart acyclovir IV for the time being. This will continue until we get finalized CSF culture results. I had a long discussion with the patient's daughter and sister over the phone today. I answered many questions. The next step in the patient's treatment will be to get a BABAK hopefully on Tuesday. We need to confirm a valvular vegetation and potentially move forward with CT surgery consult at an outside hospital if this is confirmed. Patient is perhaps a bit more alert today and states the date is 2019 and she is at [facility]. She also recognizes her daughter. She continues to keep her eyes closed for most the day. Potassiums low we will replete this. Blood sugar is still high and I have increased her Lantus. 05/25/2020 Patient is now awake and alert much more so than she has been throughout this entire admission. She is oriented to herself, place, disposition and she knows that the date is 2019 but is unsure about the rest of the date. Per nursing, patient requested to be removed from restraints and was able to calmly drink a glass of apple juice without coughing or choking a single time. After a few hours however, patient became agitated and attempted to get out of her bed and reportedly fell and potentially hit her head. We will get an MRI of her brain which radiology and general surgery have both stated is safe despite the fact she has a hypodermic needle in her right arm. They do not believe this metal is ferromagnetic and would move during a simple MRI of the brain. Patient's mother is at bedside trying to calm her down. Latest blood cultures are negative. I dug far back into her admission history in the EMR and found that the patient had a previous episode of what was presumed to be viral meningitis in 2010, interestingly she was admitted to the OB service at that time. That episode per the chart seem to be much less severe than the current 1 and the patient was discharged in stable condition when this resolved. CSF results here seem consistent with potential viral meningitis/encephalitis rather than a bacterial source. Patient will regardless need BABAK tomorrow. She is very high risk for IE and we will continue treating as such. Since I found the records from 2010, I have restarted the patient's IV acyclovir to treat possible underlying viral meningitis/encephalitis. 05/26/2020 This afternoon, I spoke with Dr. Mtz today regarding the BABAK and he stated this will not be able to be done here due to the BABAK machine now being broken without any clear timeline for it to be fixed. Instead the patient will need to be transferred to an outside facility to have a BABAK done. Noted ID recommendations as below. I have ordered CT chest/abdomen/pelvis with contrast as they requested. Discussed nafcillin dosing with pharmacy and they stated efficacy is the same for every 4 hour dosing versus continuous. Continuous infusion would potentially complicate the administration of other IV medications and keep the patient from participating in therapy. I expect patient will need transfer to a tertiary hospital for definitive surgical treatment of her likely infected endocarditis and now that BABAK is not an option here she may need transfer sooner than that. We will work on getting the test laid out by ID and reach out to an outside hospital to see their availability for beds. 05/27/20 She was seen and examined at bedside. Her mental status is back to baseline. She is alert, awake, coherent able to hold a conversation. She has been afebrile since May 25, 2020. WBC count 12.5. ID recommendations noted, acyclovir stopped today. She is currently on nafcillin for endocarditis MSSA. She would need to be transferred to a tertiary care facility for transesophageal echocardiogram placated by possible septic emboli to the lung. Repeat CT chest showed unchanged solid nodule superior segment right lower lobe measuring just under 2 cm. Right paratracheal lesion 4.8 x 3 cm and 16 Hounsfield units not significantly changed from prior CT chest and likely represents hematoma. CT abdomen negative. I was able to confirm her Subutex dose from her addiction clinic and I have resumed her 8 mg twice daily of Subutex. Will follow up with transfer center from [facility] tomorrow and would also call [facility] and [facility] for possible transfer. 05/28/20 She was seen and examined at bedside. Mental status is improved, awake, alert and talking. Denies any chest pain, SOB. She remains afebrile. Initial plan was to transfer her for a much needed BABAK however she might be able to get the BABAK done in-house. And depending on what the BABAK shows she still might need to get transferred for cardiothoracic consult and assessment. She is doing well on nafcillin. And has remained afebrile. 05/29/20 She was seen and examined at bedside. She is awake, alert. Denies any chest pain, SOB. Complaining of poor sleep. Afebrile with good appetite. BABAK result showed mitral vegetation measuring 2.8 x 1 cm attached to the posterior leaflet. Currently on day 6 of nafcillin. PICC line inserted for prolonged IV antibiotics. Will call [facility] for possible transfer and or cardiothoracic consult. Physical Exam Vital Signs: Temp Pulse Resp BP Pulse Ox 100.2 F 84 19 94/63 L 100 05/29/20 12:42 05/29/20 19:00 05/29/20 13:12 05/29/20 13:36 05/29/20 13:12 Intake & Output 05/28/20 05/29/20 05/30/20 06:59 06:59 06:59 Intake Total 2105 1141 2340 Output Total 0 Balance 2105 1141 2340 Weight 70.9 kg 72.3 kg General appearance: PRESENT: no acute distress, cooperative Head exam: PRESENT: atraumatic, normocephalic Eye exam: PRESENT: EOMI, PERRLA Mouth exam: PRESENT: moist Neck exam: PRESENT: full ROM. ABSENT: meningismus Respiratory exam: PRESENT: chest wall tenderness, symmetrical, unlabored Cardiovascular exam: PRESENT: RRR, +S1, +S2 Pulses: PRESENT: +2 pedal pulses bilateral GI/Abdominal exam: PRESENT: normal bowel sounds, soft. ABSENT: rebound, tenderness Extremities exam: PRESENT: full ROM Musculoskeletal exam: PRESENT: full ROM Neurological exam: PRESENT: alert, awake, oriented to person, oriented to place, oriented to time, oriented to situation Psychiatric exam: PRESENT: normal mood Skin exam: PRESENT: normal color Results Laboratory Results: 05/29/20 08:31 05/29/20 08:31 05/24/20 05/29/20 05/29/20 11:50 08:31 08:31 WBC 13.8 H RBC 3.26 L Hgb 9.6 L Hct 28.6 L MCV 88 MCH 29.4 MCHC 33.5 RDW 14.7 H Plt Count 340 Seg Neutrophils % 76.9 Sodium 136.1 L Potassium 4.5 Chloride 101 Carbon Dioxide 27 Anion Gap 8 BUN 5 L Creatinine 0.54 Est GFR ( Amer) > 60 Glucose 270 H Calcium 8.8 Total Bilirubin 0.5 AST 14 Alkaline Phosphatase 118 Total Protein 7.0 Albumin 2.9 L CSF Total Protein PEP 76.0 H CSF Prealbumin 1.7 L CSF Albumin 56.8 CSF Hasyp-2-Simtssmh 7.7 H CSF Hipao-1-Uqtjxyyx 6.2 CSF Beta Globulin 14.7 CSF Gamma Globulin 12.8 CSF PEP M-John Not Observed 05/19/20 05/19/20 05/20/20 11:56 20:15 03:12 Troponin I 0.026 0.041 0.046 Impressions: Renal Ultrasound 05/19/20 00:00 IMPRESSION: There is fullness of the right renal pelvis which may represent an extrarenal pelvis or mild hydronephrosis. Abdomen/Pelvis CT 05/19/20 12:06 IMPRESSION: 1. Asymmetrically enlarged, likely edematous, right kidney suggestive of pyelonephritis. Recommend correlation with UA. No hydronephrosis. 2. No evidence of acute intra-abdominal/pelvic process. Normal appendix. 3. Moderate formed stool throughout the colon. Wrist X-Ray 05/20/20 00:00 IMPRESSION: NEGATIVE STUDY OF THE RIGHT WRIST. NO RADIOGRAPHIC EVIDENCE OF A CUTE INJURY. Forearm X-Ray 05/21/20 00:00 IMPRESSION: 7 mm needle fragment in the antecubital fossa soft tissues Hand X-Ray 05/21/20 00:00 IMPRESSION: No radiopaque foreign body identified Humerus X-Ray 05/21/20 00:00 IMPRESSION: 7 mm needle fragment in the antecubital fossa soft tissues Fluoroscopy 05/22/20 00:00 IMPRESSION: FLUOROSCOPIC EVALUATION OF INDWELLING CENTRAL CATHETER, WITHOUT EVIDENCE FOR COMPLICATION OR EXTRAVASATION. Head CT 05/22/20 00:00 IMPRESSION: Very limited study. No bleed or mass. Subtle decreased attenuation in the right posterior frontal and parietal lobe cannot be excluded as discussed above. EVIDENCE OF ACUTE STROKE: NO. KUB X-Ray 05/23/20 00:00 IMPRESSION: NG tube tip in the upper stomach. Chest X-Ray 05/24/20 00:00 IMPRESSION: 1. Stable aeration with nonspecific prominence of the superior mediastinum. Further evaluation with CT chest is recommended. 2. Enteric tube terminates at the level of the gastric antrum. Lumbar Puncture 05/24/20 00:00 IMPRESSION: Successful fluoroscopic guided lumbar puncture. Head MRI 05/25/20 00:00 IMPRESSION: Extremely limited study. There are however multiple areas of restricted diffusion bilateral indicating infarcts from the embolic phenomena. EVIDENCE OF ACUTE STROKE: Yes embolic Abdomen CT 05/27/20 08:00 IMPRESSION: NORMAL CT OF THE ABDOMEN WITH INTRAVENOUS CONTRAST. Chest CT 05/27/20 08:00 IMPRESSION: No significant change. PICC Line Insertion 05/29/20 00:00 IMPRESSION: SUCCESSFUL PLACEMENT OF A 5 FR DUAL LUMEN 36 CM PICC IN THE LEFT BA SILIC VEIN. Plan Discharge Plan: For [facility] transfer pending bed availability. Accepting physician Dr. Fish Time Spent: Greater than 30 Minutes
[2020-05-29] MEDS: NORMAL SALINE 10 ML SDV (SCHEDULED) IV SCH (21:47)
[2020-05-29] MEDS: THIAMINE HCL 100 MG in NORMAL SALINE 50 ML IV SCH (21:49)
[2020-05-29] MEDS: MELATONIN 5 MG TABLET PO PRN (21:54)
[2020-05-29] MEDS ORDERED: HYDROXYZINE PAMOATE 25 MG CAPSULE PO SCH (22:00)
--- NOTE | 2020-05-30 00:35 | EKG REPORT ---
SEVERITY:- OTHERWISE NORMAL ECG - SINUS RHYTHM BORDERLINE LEFT AXIS DEVIATION : Confirmed by: Remigio Anguiano 30-May-2020 00:34:44
[2020-05-30] MEDS: NAFCILLIN SODIUM 2 GM in DEXTROSE 5%-WATER 100 ML IV SCH ×4 (01:10→14:06)
[2020-05-30] MEDS: GABAPENTIN 300 MG CAPSULE PO SCH ×3 (01:10→12:02)
[2020-05-30] MEDS: INSULIN LISPRO 100 UNIT/ML 3 ML VIAL SUBCUT SCH ×3 (08:08→16:23)
[2020-05-30] MEDS: INSULIN REG, HUMAN 100 UNIT/ML 3 ML VIAL (PYX) SUBCUT SCH ×3 (08:09→16:26)
[2020-05-30] MEDS: DOCUSATE SODIUM 100 MG CAPSULE PO SCH (09:38)
[2020-05-30] MEDS: ENOXAPARIN SODIUM INJ 40 MG/0.4 ML DISP.SYRIN SUBCUT SCH (09:39)
[2020-05-30] MEDS: PAROXETINE HCL 20 MG TABLET PO SCH (09:39)
[2020-05-30] MEDS: BUPRENORPHINE HCL 2 MG SUBLINGUAL TABLET SL SCH (09:39)
[2020-05-30] MEDS: POTASSIUM CHLORIDE 10 MEQ TABLET.ER PO SCH (09:40)
[2020-05-30] MEDS: NICOTINE 21 MG/24 HR PATCH.TD24 TD SCH (09:54)
[2020-05-30] MEDS: NORMAL SALINE 10 ML SDV (SCHEDULED) IV SCH (09:54)
[2020-05-30] MEDS ORDERED: INSULIN GLARGINE,HUM.REC.ANLOG 1,000 UNIT/10 ML VIAL SUBCUT SCH (10:00)
[2020-05-30 10:38] LABS: ABSOLUTE EOSINOPHILS # (AUTO) 0.1 10^3/uL (0.0-0.6); ABSOLUTE LYMPHOCYTES (AUTO) 2.1 10^3/uL (0.5-4.7); ABSOLUTE MONOCYTES (AUTO) 0.5 10^3/uL (0.1-1.4); ABSOLUTE NEUT (AUTO) 8.4 10^3/uL (1.7-8.2); BASOPHILS % (AUTO) 0.4 % (0-2); HEMOGLOBIN 9.5 g/dL (12.0-15.5); LYMPHOCYTES % (AUTO) 18.5 % (13-45); MEAN CORPUSCULAR HEMOGLOBIN 29.2 pg (27.0-33.4); MEAN CORPUSCULAR HGB CONC 32.9 g/dL (32.0-36.0); MEAN CORPUSCULAR VOLUME 89 fl (80-97); MONOCYTES % (AUTO) 4.8 % (3-13); PLATELET COUNT 362 10^3/uL (150-450); RED BLOOD COUNT 3.26 10^6/uL (3.72-5.28); RED CELL DISTRIBUTION WIDTH 14.7 % (11.5-14.0); SEGMENTED NEUTROPHILS % (AUTO) 75.3 % (42-78); TOTAL CELLS COUNTED % (AUTO) 100 %; WHITE BLOOD COUNT 11.2 10^3/uL (4.0-10.5)
[2020-05-30 11:02] LABS: ALBUMIN 3.2 g/dL (3.5-5.0); ALKALINE PHOSPHATASE 109 U/L (38-126); ANION GAP 9 (5-19); ASPARTATE AMINO TRANSFERASE 14 U/L (14-36); BILIRUBIN,DIRECT 0.3 mg/dL (0.0-0.4); BILIRUBIN,TOTAL 0.5 mg/dL (0.2-1.3); BLOOD UREA NITROGEN 5 mg/dL (7-20); CALCIUM 9.1 mg/dL (8.4-10.2); CARBON DIOXIDE 29 mmol/L (22-30); CHLORIDE 95 mmol/L (98-107); GLUCOSE 360 mg/dL (75-110); POTASSIUM 4.5 mmol/L (3.6-5.0); TOTAL PROTEIN 7.3 g/dL (6.3-8.2)
[2020-05-30] MEDS: ACETAMINOPHEN 325 MG TABLET NG PRN (12:02)
[2020-05-30 16:31] VITALS: BP 115/65
== END 2020-05-30 16:33 | disposition short-term general hospital (02) | DRG 871 ==
LOC: ER 11:36 → EH 17:19 → 3N 22:16 → 3W 05-21 14:50 → 4N 05-29 22:50
PROVIDERS: ADMIT Internal Medicine; ATTEND Internal Medicine
PROC: 02H633Z Insertion of Infusion Device into Right Atrium, Percutaneous Approach (ICD-10-PCS; principal; 2020-05-22)
PROC: 05JY3ZZ Inspection of Upper Vein, Percutaneous Approach (ICD-10-PCS; 2020-05-22)
PROC: 0DH67UZ Insertion of Feeding Device into Stomach, Via Natural or Artificial Opening (ICD-10-PCS; 2020-05-22)
PROC: 009U3ZX Drainage of Spinal Canal, Percutaneous Approach, Diagnostic (ICD-10-PCS; 2020-05-24)
PROC: B01BZZZ Fluoroscopy of Spinal Cord (ICD-10-PCS; 2020-05-24)
PROC: 02HV33Z Insertion of Infusion Device into Superior Vena Cava, Percutaneous Approach (ICD-10-PCS; 2020-05-29)
PROC: B548ZZA Ultrasonography of Superior Vena Cava, Guidance (ICD-10-PCS; 2020-05-29)
DX: A41.01 Sepsis due to Methicillin susceptible Staphylococcus aureus (principal); E10.10 Type 1 diabetes mellitus with ketoacidosis without coma; G93.41 Metabolic encephalopathy; I33.0 Acute and subacute infective endocarditis; F11.20 Opioid dependence, uncomplicated; J95.831 Postprocedural hemorrhage of a respiratory system organ or structure following other procedure; E87.6 Hypokalemia; K51.90 Ulcerative colitis, unspecified, without complications; E87.0 Hyperosmolality and hypernatremia; G89.29 Other chronic pain; Z78.1 Physical restraint status; R91.8 Other nonspecific abnormal finding of lung field; R65.20 Severe sepsis without septic shock; M79.5 Residual foreign body in soft tissue; J45.909 Unspecified asthma, uncomplicated; K21.9 Gastro-esophageal reflux disease without esophagitis; M79.7 Fibromyalgia; F17.200 Nicotine dependence, unspecified, uncomplicated; B19.20 Unspecified viral hepatitis C without hepatic coma; Z20.828 Contact with and (suspected) exposure to other viral communicable diseases; F11.10 Opioid abuse, uncomplicated; Z83.3 Family history of diabetes mellitus; Z88.1 Allergy status to other antibiotic agents; Z88.2 Allergy status to sulfonamides; Z88.8 Allergy status to other drugs, medicaments and biological substances; Z88.6 Allergy status to analgesic agent
CPT/HCPCS: 01922; 36415; 36573; 36600; 62328; 70450; 70551; 71045; 71250; 71260; 74018; 74160; 74176; 76000; 76770; 80048; 80053; 80074; 80202; 80307; 81001; 81025; 82140; 82565; 82803; 82945; 82962; 83036; 83605; 83690; 83735; 83916; 84100; 84157; 84166; 84484; 85025; 85610; 85730; 86592; 86701; 86900; 86901; 87040; 87070; 87077; 87150; 87186; 87205; 87210; 87252; 87521; 87635; 89050; 93005; 93010; 93306; 93312; 93325; 96361; 96365; 96366; 96368; 96375; 99291; C9803; J0133; J0571; J0692; J1170; J1630; J1642; J1650; J1815; J2060; J2405; J2704; J3370; J3411; J3430; J3480; J3490; J7030; J7050; J7060; J7120; S0032; S0119

== ENCOUNTER 2020-06-07 14:05 | Inpatient (IN) | payer SELFPAY ==
[2020-06-07] MEDS ORDERED: ACETAMINOPHEN 325 MG TABLET ONE (14:30)
[2020-06-07] MEDS ORDERED: ACETAMINOPHEN 325 MG TABLET PO PRN (15:00)
[2020-06-07] MEDS ORDERED: DEXTROSE 50%-WATER 25 GM/50 ML DISP.SYRIN IV PRN ×2 (18:06)
[2020-06-07] MEDS ORDERED: GLUCAGON,HUMAN RECOMB 1 MG INJ IM PRN (18:06)
[2020-06-07] MEDS ORDERED: DEXTROSE 40% GEL 15 GM TUBE PO PRN ×2 (18:06)
[2020-06-07] MEDS ORDERED: NAFCILLIN SODIUM INJ 2 GM VIAL ONE (18:15)
[2020-06-07] MEDS: NAFCILLIN SODIUM 2 GM in DEXTROSE 5%-WATER 100 ML IV SCH ×2 (18:38→22:14)
[2020-06-07] MEDS ORDERED: INSULIN LISPRO 100 UNIT/ML 3 ML VIAL ONE (19:03)
[2020-06-07] MEDS: INSULIN LISPRO 100 UNIT/ML 3 ML VIAL SUBCUT SCH ×2 (19:33→19:34)
--- NOTE | 2020-06-07 19:38 | PDOC H&P ---
History of Present Illness Admission Date/PCP: 06/07/20 14:05 Patient complains of: Endocarditis, right groin pain History of Present Illness: ИВАН MONTELONGO is a 35 year old female with history of IV heroin use who was received this morning as a transfer-back to [facility] from [facility] for continued antibiotic therapy. Patient initially evaluated at [facility] on 05/19/2020 for AMS. She was inevitably found to have MSSA mitral valve endocarditis with septicemia, currently being treated with Nafcillin 2g q4hr as per ID recommendations, with negative blood cultures as of 05/23/2020. On BABAK patient was found to have large mitral valve mass requiring surgery and was thus transferred to [facility] for further treatment and evaluation on 05/29/2020. Pt evaluated at [facility] and is scheduled for CT surgery at [facility] on 06/16/2020, to be transferred back to [facility] on 06/15. [facility] records reviewed in detail and have been scanned into chart. Her hospital course at [facility] complicated by septic emboli to the lung and brain. Patient followed by neuro/neurosurgery at [facility] who request repeat MRI brain w/w/o on 06/11 for comparison. On presentation patient is hemodynamically stable with VSS. Her only complaint is that she is experiencing right hip and right knee pain. Right hip pain is acute 3 days duration described as an ache which she relates to swollen lymph nodes in her groin. The right knee pain has been addressed and evaluated by [facility] currently treating with lidocaine patches and Tylenol. No further complaints or concerns at this time. I have accepted the patient to hospitalist service for continued antibiotic therapy until she is to be transferred back to [facility] on date as stated above. Past Medical History Cardiac Medical History: Denies: Coronary Artery Disease, Myocardial Infarction, Hypertension Pulmonary Medical History: Reports: Asthma Denies: Bronchitis, Chronic Obstructive Pulmonary Disease (COPD), Pneumonia Neurological Medical History: Reports: Migraine, Seizures - BLOOD SUGAR GOT TOO LOW Endocrine Medical History: Reports: Diabetes Mellitus Type 1 GI Medical History: Reports: Gastroesophageal Reflux Disease, Ulcerative Colitis Musculoskeltal Medical History: Reports: Fibromyalgia Denies: Arthritis Psychiatric Medical History: Reports: Depression Traumatic Medical History: Reports: Pneumothorax Hematology: Reports: Anemia Denies: Sickle Cell Disease Past Surgical History Past Surgical History: Reports: Section - x1, Tubal Ligation Denies: Pacemaker Social History Information Source: Patient Lives with: Family Smoking Status: Current Every Day Smoker Cigarettes Packs Per Day: 1 Electronic Cigarette use?: No Number of Years Smokin Last Time Smoked: not sure on patch Frequency of Alcohol Use: None Hx Recreational Drug Use: No Drugs: Cocaine, Heroin, Ecstasy, Other Hx Prescription Drug Abuse: Yes - xanax - Advance Directive Resuscitation Status: Full Code Family History Family History: COPD, DM, Malignancy Parental Family History Reviewed: Yes Children Family History Reviewed: Yes Sibling(s) Family History Reviewed.: Yes Medication/Allergy Home Medications: Buprenorphine HCl 8 mg SL BID 05/19/20 Gabapentin [Neurontin 300 mg Capsule] 300 mg PO Q6 05/19/20 Paroxetine HCl [Paxil 20 mg Tablet] 20 mg PO QAM 05/19/20 Hydroxyzine Pamoate [Vistaril 50 mg Capsule] 50 mg PO Q6HP PRN 06/07/20 Lidocaine [Lidocaine Pain Relief] 1 patch TOP DAILY 06/07/20 Trazodone HCl 150 mg PO QHS 06/07/20 Allergies/Adverse Reactions: infliximab [From Remicade] Allergy (Severe, Verified 05/19/20 12:43) Anaphylaxis clindamycin [Clindamycin] Allergy (Verified 05/19/20 12:43) sulfamethoxazole [From Bactrim] Allergy (Verified 05/19/20 12:43) trimethoprim [From Bactrim] Allergy (Verified 05/19/20 12:43) codeine [Codeine] Adverse Reaction (Mild, Verified 05/19/20 12:43) NSAIDS (Non-Steroidal Anti-Inflamma Adverse Reaction (Verified 05/19/20 12:43) Review of Systems Constitutional: ABSENT: anorexia, chills, fatigue, fever(s), headache(s), night sweats, weakness, weight loss Eyes: ABSENT: visual disturbances Ears: ABSENT: hearing changes Nose, Mouth, and Throat: ABSENT: headache(s), mouth pain, sore throat Cardiovascular: ABSENT: chest pain, dyspnea on exertion, edema, orthropnea, palpitations Respiratory: ABSENT: cough, dyspnea, hemoptysis Gastrointestinal: ABSENT: constipation, diarrhea, nausea, vomiting Genitourinary: ABSENT: difficulty urinating, dysuria, hematuria Musculoskeletal: PRESENT: other - Right knee pain, right groin pain Integumentary: ABSENT: diaphoresis, lesions, pruritus, rash Neurological: PRESENT: weakness. ABSENT: abnormal movements, abnormal speech, confusion, dizziness, numbness, paresthesias, syncope Psychiatric: ABSENT: anxiety, depression, hallucinations, homidical ideation Endocrine: ABSENT: heat intolerance, polydipsia, polyphagia Hematologic/Lymphatic: ABSENT: easy bleeding, lymphadenopathy Physical Exam Vital Signs: Temp Pulse Resp BP Pulse Ox 98.0 F 81 17 115/67 98 06/07/20 15:50 06/07/20 15:50 06/07/20 15:50 06/07/20 15:50 06/07/20 15:50 Intake & Output 06/06/20 06/07/20 06/08/20 06:59 06:59 06:59 Weight 73.9 kg General appearance: PRESENT: no acute distress, cooperative, well-developed Head exam: PRESENT: atraumatic, normocephalic Eye exam: PRESENT: conjunctiva pink, EOMI, PERRLA. ABSENT: conjunctival injection, scleral icterus Mouth exam: PRESENT: moist, tongue midline Teeth exam: PRESENT: dental caries Neck exam: PRESENT: full ROM. ABSENT: JVD, lymphadenopathy, tenderness, thyromegaly Respiratory exam: PRESENT: clear to auscultation brandon, symmetrical, unlabored. ABSENT: crackles, decreased breath sounds, rales, retraction, tachypnea, wheezes Cardiovascular exam: PRESENT: RRR, +S1, +S2. ABSENT: diastolic murmur, systolic murmur, tachycardia Pulses: PRESENT: +2 pedal pulses bilateral GI/Abdominal exam: PRESENT: normal bowel sounds, soft. ABSENT: distended, firm, guarding, tenderness Rectal exam: PRESENT: deferred Extremities exam: PRESENT: full ROM, tenderness - TTP right knee, TTP right groin without associated lymphedema. ABSENT: clubbing Musculoskeletal exam: PRESENT: ambulatory, full ROM. ABSENT: deformity, dislocation Neurological exam: PRESENT: alert, awake, oriented to person, oriented to place, oriented to time, oriented to situation, CN II-XII grossly intact, other - L hand extensor weakness Psychiatric exam: PRESENT: appropriate affect, normal mood Skin exam: PRESENT: dry, intact, warm Assessment and Plan - Diagnosis (1) Vegetative endocarditis of mitral valve Is this a current diagnosis for this admission?: Yes Plan: Patient with longstanding history IV drug use. - 05/19 admitted [facility] for AMS - 05/20 TTE showed normal cardiac function, negative for vegetations, mild pulmonary hypertension - 05/21 + BC MSSA x2 bottles - 05/23 Negative BC on Nafcillin 2g q4hr - 05/29 BABAK 2.8 x 1 cm posterior leaflet mitral valve vegetation - 05/29 transferred to [facility] - Repeat TTE at [facility] large mobile vegetation measuring 3.2x1.4cm with trivial MR. - CT surgery scheduled at [facility] for 06/16, transfer back to [facility] 06/15 prior to surgery with Dr. Martinez. Continue Nafcillin 2g q4hr - First negative BC 05/23/2020, continue x6 weeks total. (2) MSSA (methicillin susceptible Staphylococcus aureus) septicemia Is this a current diagnosis for this admission?: Yes Plan: Consistently negative blood cultures since 05/23/2020 Continue Nafcillin 2g IV q4hr Monitor BMP q3days (3) Septic embolism Is this a current diagnosis for this admission?: Yes Plan: Concern for sepetic emboli to brain based on MRI w/w/o as per [facility] records - Neuro/neurosurgery consulted at [facility] - Lesions suspect for small abscess - No warrant for further surgical intervention - Recommend medical management Repeat brain MRI w/w/o contrast on 06/11 - Send disc with images to [facility] Small cavitary lesion R lung, concerning for septic emboli. - per CXR/CT 05/27 Therapy with Nafcillin as above. (4) Right lower lobe pulmonary nodule Is this a current diagnosis for this admission?: Yes Plan: 0.4cm nodule in right lower lobe, as per CT with contrast 05/27. - Likely septic emboli as discussed above. Repeat CT chest once infection has resolved Likely needs outpatient follow up (5) Diabetes mellitus type 1 Qualifiers: Diabetes mellitus complication status: with hyperglycemia Qualified Code(s): E10.65 - Type 1 diabetes mellitus with hyperglycemia Is this a current diagnosis for this admission?: Yes Plan: Most recent Heme A1c 10. Patient is placed on a consistent carb diet. Initiate lantus 30u. Continue humalog 8u AC. Accu-Cheks before meals and at bedtime with Humalog for sliding scale coverage. Hypoglycemia protocol in place. Registered dietitian environmental educator consulted. (6) Anxiety Is this a current diagnosis for this admission?: Yes Plan: Patient on paroxetine 20 mg daily as per home dose. (7) Recreational drug use Is this a current diagnosis for this admission?: Yes Plan: Patient reports history of prior polypharmacy recreational drug use. Including history of heroin use, amphetamines, and ecstasy. Last heroin use 6 months ago. - Maintained with Suboxone 8mg SL BID (8) Right knee pain Qualifiers: Chronicity: acute Qualified Code(s): M25.561 - Pain in right knee Is this a current diagnosis for this admission?: Yes Plan: Worked up at [facility] without significant findings. Pain is minimal today. Lidocaine patch. Tylenol 1000 mg q8 prn. (9) Right groin pain Is this a current diagnosis for this admission?: Yes Plan: 3 day history right groin pain. Without associated lymphadema. Full ROM, ambulatory without edema, erythema or warmth. X-ray right hip for evaluation. - If negative will continue to treat symptomatically. -If this is infectious in nature should be covered with nafcillin as above. (10) Tobacco use Is this a current diagnosis for this admission?: Yes Plan: Long standing history of tobacco use. Smokes ~1 ppd. Provide nicotine patch daily. - Time Time Spent with patient: 35 or more minutes Smoking Cessation Education: 3 to 10 minutes Medications reviewed and adjusted accordingly: Yes Anticipated Discharge Disposition: Tertiary - Transfer to [facility] for surgery 06/15 Anticipated Discharge Timeframe: 06/15 - Inpatient Certification Based on my medical assessment, after consideration of the patient's comorbidities, presenting symptoms, or acuity I expect that the services needed warrant INPATIENT care.: Yes I certify that my determination is in accordance with my understanding of Medicare's requirements for reasonable and necessary INPATIENT services [42 CFR 412.3e].: Yes Medical Necessity: Failure to Improve With Outpatient Therapy, Significant Comorbidiites Make Outpatient Treatment Too Risky, Need Close Monitoring Due to Risk of Patient Decompensation, Need For Continuous Telemetry Monitoring, Need for IV Antibiotics, Need for Surgery, Risk of Complication if Not Cared For in Hospital Post Hospital Care: D/C or Transfer Summary
[2020-06-07] MEDS ORDERED: INSULIN GLARGINE,HUM.REC.ANLOG 1,000 UNIT/10 ML VIAL (PYX) SUBCUT ONE (22:03)
[2020-06-07] MEDS: MELATONIN 3 MG TABLET PO SCH (22:04)
[2020-06-07] MEDS: BUPRENORPHINE HCL 2 MG SUBLINGUAL TABLET SL SCH (22:04)
[2020-06-07] MEDS: GABAPENTIN 300 MG CAPSULE PO SCH (22:05)
[2020-06-07] MEDS: TRAZODONE HCL 50 MG TABLET PO SCH (22:05)
[2020-06-07] MEDS: INSULIN GLARGINE,HUM.REC.ANLOG 1,000 UNIT/10 ML VIAL SUBCUT SCH (22:06)
[2020-06-07] MEDS: LIDOCAINE 5% (700 MG) TRANSDERMAL ADH..PATCH TP SCH (22:06)
[2020-06-07] MEDS: NORMAL SALINE 10 ML SDV (SCHEDULED) IV SCH (22:15)
[2020-06-08] MEDS: NAFCILLIN SODIUM 2 GM in DEXTROSE 5%-WATER 100 ML IV SCH ×6 (02:00→21:34)
[2020-06-08] MEDS: ACETAMINOPHEN 325 MG TABLET PO PRN ×2 (03:04→16:30)
[2020-06-08] MEDS: GABAPENTIN 300 MG CAPSULE PO SCH ×3 (05:05→21:34)
[2020-06-08] MEDS: HEPARIN SOD (PORCINE) 5,000 UNIT/ML 1 ML VIAL SUBCUT SCH ×3 (05:06→21:40)
[2020-06-08 06:38] LABS: HEMATOCRIT 25.8 % (36.0-47.0); HEMOGLOBIN 8.9 g/dL (12.0-15.5); MEAN CORPUSCULAR HEMOGLOBIN 30.7 pg (27.0-33.4); MEAN CORPUSCULAR HGB CONC 34.3 g/dL (32.0-36.0); MEAN CORPUSCULAR VOLUME 90 fl (80-97); PLATELET COUNT 463 10^3/uL (150-450); RED BLOOD COUNT 2.88 10^6/uL (3.72-5.28); WHITE BLOOD COUNT 7.4 10^3/uL (4.0-10.5)
[2020-06-08 07:03] LABS: ANION GAP 7 (5-19); BLOOD UREA NITROGEN 8 mg/dL (7-20); CALCIUM 9.1 mg/dL (8.4-10.2); CARBON DIOXIDE 29 mmol/L (22-30); CHLORIDE 101 mmol/L (98-107); GLUCOSE 124 mg/dL (75-110); POTASSIUM 4.4 mmol/L (3.6-5.0)
[2020-06-08] MEDS ORDERED: RINGERS SOLUTION,LACTATED 1,000 ML IV PRN (07:43)
[2020-06-08] MEDS: INSULIN LISPRO 100 UNIT/ML 3 ML VIAL SUBCUT SCH ×6 (07:55→16:30)
--- NOTE | 2020-06-08 08:47 | RADIOLOGY REPORT (SQ) ---
EXAM DESCRIPTION: HIP RIGHT AP/LATERAL IMAGES COMPLETED DATE/TIME: 06/07/2020 9:32 pm REASON FOR STUDY: right groin pain COMPARISON: None. NUMBER OF VIEWS: Two views. TECHNIQUE: AP pelvis and additional frog leg view of the right hip. LIMITATIONS: None. FINDINGS: MINERALIZATION: Normal. RIGHT HIP: No fracture or dislocation. No worrisome bone lesions. LEFT HIP: No fracture or dislocation. No worrisome bone lesions. Limited views. PUBIS AND ISCHIUM: No fracture. PELVIS: No fracture. SACRUM: No fracture or dislocation. No worrisome bone lesions. LOWER LUMBAR SPINE: No fracture or dislocation. No worrisome bone lesions. No significant disc disea se. SOFT TISSUES: No acute findings. Large stool burden. OTHER: No other significant finding. IMPRESSION: No significant osseous findings. Large stool burden. COMMENT: Pelvic fractures are often occult on plain radiographs. If strong clinical suspicion for fracture, recommend CT or MR. TECHNICAL DOCUMENTATION: JOB ID: [id number] 2010 [employer]- All Rights Reserved Reading location - IP/workstation name: [email or web address]
[2020-06-08] MEDS ORDERED: LIDOCAINE 5% (700 MG) TRANSDERMAL ADH..PATCH TP SCH (10:00)
[2020-06-08] MEDS: BUPRENORPHINE HCL 2 MG SUBLINGUAL TABLET SL SCH ×2 (10:26→21:34)
[2020-06-08] MEDS: DOCUSATE SODIUM 100 MG CAPSULE PO SCH (10:26)
[2020-06-08] MEDS: NORMAL SALINE 10 ML SDV (SCHEDULED) IV SCH ×2 (10:26→21:40)
[2020-06-08] MEDS: PAROXETINE HCL 20 MG TABLET PO SCH (10:26)
[2020-06-08] MEDS: LIDOCAINE 5% (700 MG) TRANSDERMAL ADH..PATCH TP SCH ×2 (10:28→21:40)
[2020-06-08] MEDS: NICOTINE 14 MG/24 HR PATCH.TD24 TD SCH (10:29)
--- NOTE | 2020-06-08 18:59 | EKG REPORT ---
SEVERITY:- NORMAL ECG - SINUS RHYTHM : Confirmed by: Nasreen Castro MD 08-Jun-2020 18:59:16
--- NOTE | 2020-06-08 19:23 | PDOC PROGRESS REPORT ---
Subjective Date:: 06/08/20 Subjective:: Patient is seen resting in bed. She is asleep when I entered the room but awakes easily when I say her name. Her mother is present on evaluation. She tells me that it is her daughter's 19st birthday today. She again notes right groin pain, but states that this is well controlled with lidocaine patch and Tylenol. She has been able to ambulate without difficulty. No further complaints or concerns today. No concerns per nursing. Reason For Visit: Endocarditis. Physical Exam Vital Signs: Temp Pulse Resp BP Pulse Ox 97.8 F 76 17 99/57 L 99 06/08/20 15:40 06/08/20 15:40 06/08/20 15:40 06/08/20 15:40 06/08/20 15:40 Intake & Output 06/07/20 06/08/20 06/09/20 06:59 06:59 06:59 Intake Total 840 940 Balance 840 940 Weight 73.8 kg Additional comments: General appearance: PRESENT: no acute distress, cooperative, well-developed Head exam: PRESENT: atraumatic, normocephalic Eye exam: PRESENT: conjunctiva pink, EOMI, PERRLA. ABSENT: conjunctival injection, scleral icterus Mouth exam: PRESENT: moist, tongue midline Teeth exam: PRESENT: dental caries Neck exam: PRESENT: full ROM. ABSENT: JVD, lymphadenopathy, tenderness, thyromegaly Respiratory exam: PRESENT: clear to auscultation brandon, symmetrical, unlabored. ABSENT: crackles, decreased breath sounds, rales, retraction, tachypnea, wheezes Cardiovascular exam: PRESENT: RRR, +S1, +S2. ABSENT: diastolic murmur, systolic murmur, tachycardia Pulses: PRESENT: +2 pedal pulses bilateral GI/Abdominal exam: PRESENT: normal bowel sounds, soft. ABSENT: distended, firm, guarding, tenderness Rectal exam: PRESENT: deferred Extremities exam: PRESENT: full ROM, patient seen ambulating without difficulty. She is nontender to palpation right knee without edema erythema or warmth. Right groin minimally tender to palpation without edema erythema or warmth. ABSENT: clubbing Musculoskeletal exam: PRESENT: ambulatory, full ROM. ABSENT: deformity, dislocation Neurological exam: PRESENT: alert, awake, oriented to person, oriented to place, oriented to time, oriented to situation, CN II-XII grossly intact, other - L hand extensor weakness Psychiatric exam: PRESENT: appropriate affect, normal mood Skin exam: PRESENT: dry, intact, warm Results Laboratory Results: 06/08/20 05:15 06/08/20 05:15 06/08/20 06/08/20 05:15 05:15 WBC 7.4 RBC 2.88 L Hgb 8.9 L Hct 25.8 L MCV 90 MCH 30.7 MCHC 34.3 RDW 17.0 H Plt Count 463 H Sodium 137.2 Potassium 4.4 Chloride 101 Carbon Dioxide 29 Anion Gap 7 BUN 8 Creatinine 0.55 Est GFR ( Amer) > 60 Glucose 124 H Calcium 9.1 Magnesium 1.9 Impressions: Hip/Pelvis X-Ray 06/07/20 00:00 IMPRESSION: No significant osseous findings. Large stool burden. Assessment and Plan - Diagnosis (1) Normocytic normochromic anemia Is this a current diagnosis for this admission?: Yes Plan: Hgb on admission 8.9. Hgb 06/05 at [facility] 8.8. Without signs/symptoms of acute bleed. Consider type and screen if continues to drop. Monitor closely. History of single blood transfusion in 2011 following of twin sons. (2) Vegetative endocarditis of mitral valve Is this a current diagnosis for this admission?: Yes Plan: Patient with longstanding history IV drug use. - 05/19 admitted [facility] for AMS - 05/20 TTE showed normal cardiac function, negative for vegetations, mild pulmonary hypertension - 05/21 + BC MSSA x2 bottles - 05/23 Negative BC on Nafcillin 2g q4hr - 05/29 BABAK 2.8 x 1 cm posterior leaflet mitral valve vegetation - 05/29 transferred to [facility] - Repeat TTE at [facility] large mobile vegetation measuring 3.2x1.4cm with trivial MR. - CT surgery scheduled at [facility] for 06/16, transfer back to [facility] 06/15 prior to surgery with Dr. Martinez. Continue Nafcillin 2g q4hr - First negative BC 05/23/2020, continue x6 weeks total. (3) MSSA (methicillin susceptible Staphylococcus aureus) septicemia Is this a current diagnosis for this admission?: Yes Plan: Consistently negative blood cultures since 05/23/2020 Continue Nafcillin 2g IV q4hr Monitor BMP q3days (4) Septic embolism Is this a current diagnosis for this admission?: Yes Plan: Concern for sepetic emboli to brain based on MRI w/w/o as per [facility] records - Neuro/neurosurgery consulted at [facility] - Lesions suspect for small abscess - No warrant for further surgical intervention - Recommend medical management Repeat brain MRI w/w/o contrast on 06/11 - Send disc with images to [facility] Small cavitary lesion R lung, concerning for septic emboli. - per CXR/CT 05/27 Therapy with Nafcillin as above. (5) Right lower lobe pulmonary nodule Is this a current diagnosis for this admission?: Yes Plan: 0.4cm nodule in right lower lobe, as per CT with contrast 05/27. - Likely septic emboli as discussed above. Repeat CT chest once infection has resolved Likely needs outpatient follow up (6) Diabetes mellitus type 1 Qualifiers: Diabetes mellitus complication status: with hyperglycemia Qualified Code(s): E10.65 - Type 1 diabetes mellitus with hyperglycemia Is this a current diagnosis for this admission?: Yes Plan: Blood sugars consistently 160s. Most recent Heme A1c 10. Patient is placed on a consistent carb diet. Initiate lantus 30u. Continue humalog 8u AC. Accu-Cheks before meals and at bedtime with Humalog for sliding scale coverage. Hypoglycemia protocol in place. Registered dietitian breastfeeding educator consulted. (7) Anxiety Is this a current diagnosis for this admission?: Yes Plan: Patient on paroxetine 20 mg daily as per home dose. (8) Recreational drug use Is this a current diagnosis for this admission?: Yes Plan: Patient reports history of prior polypharmacy recreational drug use. Including history of heroin use, amphetamines, and ecstasy. Last heroin use 6 months ago. - Maintained with Suboxone 8mg SL BID (9) Right knee pain Qualifiers: Chronicity: acute Qualified Code(s): M25.561 - Pain in right knee Is this a current diagnosis for this admission?: Yes Plan: Worked up at [facility] without significant findings. Pain is minimal today. Lidocaine patch. Tylenol 1000 mg q8 prn. (10) Right groin pain Is this a current diagnosis for this admission?: Yes Plan: History of R groin pain on admission. Without associated lymphadema. Full ROM, ambulatory without edema, erythema or warmth. X-ray right hip without acute findings. - No further work up at this time Lidocaine patches Tylenol prn for pain (11) Tobacco use Is this a current diagnosis for this admission?: Yes Plan: Long standing history of tobacco use. Smokes ~1 ppd. Provide nicotine patch daily. (12) Hypotension Qualifiers: Hypotension type: idiopathic hypotension Qualified Code(s): I95.0 - Idiopathic hypotension Is this a current diagnosis for this admission?: Yes Plan: Blood pressure consistently low 100/70s. Discussed with patient, reports baseline BP low 100/70s. Previous hospitalization reviewed BP consistent with low 100/70s. [facility] records reviewed, BP consistent with low 100/70s. Monitor. - Plan Summary Summary: Cnt Nafcillin as above. Repeat brain MRI w/w/o contrast on 06/11 (Send disc with images to [facility]).CT surgery scheduled at [facility] for 06/16, transfer back to [facility] 06/15 prior to surgery with Dr. Martinez. - Time Time Spent with patient: 25-34 minutes Smoking Cessation Education: 3 to 10 minutes Medications reviewed and adjusted accordingly: Yes Anticipated Discharge Disposition: Tertiary - Transfer to [facility] on 06/15 Anticipated Discharge Timeframe: 06/15
[2020-06-08] MEDS: HYDROXYZINE HCL 10 MG TABLET PO PRN (19:54)
[2020-06-08] MEDS: TRAZODONE HCL 50 MG TABLET PO SCH (21:34)
[2020-06-08] MEDS: MELATONIN 3 MG TABLET PO SCH (21:34)
[2020-06-08] MEDS: INSULIN GLARGINE,HUM.REC.ANLOG 1,000 UNIT/10 ML VIAL SUBCUT SCH (21:34)
[2020-06-09] MEDS: NAFCILLIN SODIUM 2 GM in DEXTROSE 5%-WATER 100 ML IV SCH ×6 (02:49→22:13)
[2020-06-09] MEDS: HEPARIN SOD (PORCINE) 5,000 UNIT/ML 1 ML VIAL SUBCUT SCH ×3 (05:57→22:23)
[2020-06-09] MEDS: GABAPENTIN 300 MG CAPSULE PO SCH ×3 (05:59→22:11)
[2020-06-09] MEDS: INSULIN LISPRO 100 UNIT/ML 3 ML VIAL SUBCUT SCH ×6 (07:38→16:50)
[2020-06-09] MEDS: ACETAMINOPHEN 325 MG TABLET PO PRN ×2 (09:28→16:20)
[2020-06-09] MEDS: PAROXETINE HCL 20 MG TABLET PO SCH (09:30)
[2020-06-09] MEDS: DOCUSATE SODIUM 100 MG CAPSULE PO SCH (09:30)
[2020-06-09] MEDS: BUPRENORPHINE HCL 2 MG SUBLINGUAL TABLET SL SCH ×2 (09:30→22:11)
[2020-06-09] MEDS: NICOTINE 14 MG/24 HR PATCH.TD24 TD SCH (09:30)
[2020-06-09] MEDS: NORMAL SALINE 10 ML SDV (AFTER EACH USE) IV PRN (09:31)
[2020-06-09] MEDS: NORMAL SALINE 10 ML SDV (SCHEDULED) IV SCH ×2 (09:31→22:21)
[2020-06-09] MEDS: LIDOCAINE 5% (700 MG) TRANSDERMAL ADH..PATCH TP SCH (09:49)
[2020-06-09] MEDS: HYDROXYZINE HCL 10 MG TABLET PO PRN (09:50)
[2020-06-09] MEDS: NICOTINE 21 MG/24 HR PATCH.TD24 TD SCH (12:10)
[2020-06-09 14:12] LABS: HEMATOCRIT 25.2 % (36.0-47.0); HEMOGLOBIN 8.4 g/dL (12.0-15.5); MEAN CORPUSCULAR HEMOGLOBIN 29.8 pg (27.0-33.4); MEAN CORPUSCULAR HGB CONC 33.3 g/dL (32.0-36.0); MEAN CORPUSCULAR VOLUME 90 fl (80-97); PLATELET COUNT 372 10^3/uL (150-450); RED BLOOD COUNT 2.81 10^6/uL (3.72-5.28); RED CELL DISTRIBUTION WIDTH 17.9 % (11.5-14.0); WHITE BLOOD COUNT 5.3 10^3/uL (4.0-10.5)
--- NOTE | 2020-06-09 14:33 | PDOC PROGRESS REPORT ---
Subjective Date:: 06/09/20 Subjective:: Jackie is a 35 y/o female who was transferred back to [facility] from [facility] on 06/07 for continued abx treatment of MSSA mitral valve endocarditis with septicemia until 06/15 when she is to be transferred back to [facility] for CT surgery with Dr. Martinez. Patient seen ambulating the hospital halls. She is walking without difficulty, denies pain. Provides me with no complaints or concerns today. No concerns per nursing. Reason For Visit: PNEUMONIA Physical Exam Vital Signs: Temp Pulse Resp BP Pulse Ox 97.8 F 72 18 91/53 L 95 06/09/20 07:55 06/09/20 07:31 06/09/20 07:31 06/09/20 07:31 06/09/20 07:31 Intake & Output 06/08/20 06/09/20 06/10/20 06:59 06:59 06:59 Intake Total 840 2200 Balance 840 2200 Weight 73.8 kg 73.8 kg Additional comments: General appearance: PRESENT: no acute distress, cooperative, well-developed Head exam: PRESENT: atraumatic, normocephalic Eye exam: PRESENT: conjunctiva pink, EOMI, PERRLA. ABSENT: conjunctival injection, scleral icterus Neck exam: PRESENT: full ROM. Respiratory exam: PRESENT: clear to auscultation brandon, symmetrical, unlabored. ABSENT: crackles, decreased breath sounds, rales, retraction, tachypnea, wheezes Cardiovascular exam: PRESENT: RRR, +S1, +S2. ABSENT: diastolic murmur, systolic murmur, tachycardia Pulses: PRESENT: +2 pedal pulses bilateral GI/Abdominal exam: PRESENT: normal bowel sounds, soft. ABSENT: distended, firm, guarding, tenderness Extremities exam: PRESENT: Full ROM, pt seen ambulating without change in gait. Musculoskeletal exam: PRESENT: ambulatory, full ROM. ABSENT: deformity, dislocation Neurological exam: PRESENT: alert, awake, oriented to person, oriented to place, oriented to time, oriented to situation Psychiatric exam: PRESENT: appropriate affect, normal mood Skin exam: PRESENT: dry, intact, warm Results Laboratory Results: 06/09/20 13:56 06/08/20 05:15 06/09/20 06/09/20 06/09/20 06:05 08:01 13:56 WBC Cancelled 5.3 RBC Cancelled 2.81 L Hgb Cancelled 8.4 L Hct Cancelled 25.2 L MCV Cancelled 90 MCH Cancelled 29.8 MCHC Cancelled 33.3 RDW Cancelled 17.9 H Plt Count Cancelled 372 Magnesium 1.7 Impressions: Hip/Pelvis X-Ray 06/07/20 00:00 IMPRESSION: No significant osseous findings. Large stool burden. Assessment and Plan - Diagnosis (1) Normocytic normochromic anemia Is this a current diagnosis for this admission?: Yes Plan: Hgb today 8.4. Hgb 06/05 at [facility] 8.8. Without signs/symptoms of acute bleed. Consider type and screen if continues to drop. Iron studies in the am. Monitor closely. History of single blood transfusion in 2011 following of twin sons. (2) Vegetative endocarditis of mitral valve Is this a current diagnosis for this admission?: Yes Plan: Patient with longstanding history IV drug use. - 05/19 admitted [facility] for AMS - 05/20 TTE showed normal cardiac function, negative for vegetations, mild pulmonary hypertension - 05/21 + BC MSSA x2 bottles - 05/23 Negative BC on Nafcillin 2g q4hr - 05/29 BABAK 2.8 x 1 cm posterior leaflet mitral valve vegetation - 05/29 transferred to [facility] - Repeat TTE at [facility] large mobile vegetation measuring 3.2x1.4cm with trivial MR. - CT surgery scheduled at [facility] for 06/16, transfer back to [facility] 06/15 prior to surgery with Dr. Martinez. Continue Nafcillin 2g q4hr - First negative BC 05/23/2020, continue x6 weeks total. (3) MSSA (methicillin susceptible Staphylococcus aureus) septicemia Is this a current diagnosis for this admission?: Yes Plan: Consistently negative blood cultures since 05/23/2020 Continue Nafcillin 2g IV q4hr Monitor BMP q3days (4) Septic embolism Is this a current diagnosis for this admission?: Yes Plan: Concern for sepetic emboli to brain based on MRI w/w/o as per [facility] records - Neuro/neurosurgery consulted at [facility] - Lesions suspect for small abscess - No warrant for further surgical intervention - Recommend medical management Repeat brain MRI w/w/o contrast on 06/11 - Send disc with images to [facility] Small cavitary lesion R lung, concerning for septic emboli. - per CXR/CT 05/27 Therapy with Nafcillin as above. (5) Right lower lobe pulmonary nodule Is this a current diagnosis for this admission?: Yes Plan: 0.4cm nodule in right lower lobe, as per CT with contrast 05/27. - Likely septic emboli as discussed above. Repeat CT chest once infection has resolved Likely needs outpatient follow up (6) Diabetes mellitus type 1 Qualifiers: Diabetes mellitus complication status: with hyperglycemia Qualified Code(s): E10.65 - Type 1 diabetes mellitus with hyperglycemia Is this a current diagnosis for this admission?: Yes Plan: Most recent Heme A1c 10. Patient is placed on a consistent carb diet. Initiate lantus 30u. Continue humalog 8u AC. Accu-Cheks before meals and at bedtime with Humalog for sliding scale coverage. Hypoglycemia protocol in place. Registered dietitian assistant health educator consulted. (7) Anxiety Is this a current diagnosis for this admission?: Yes Plan: Patient on paroxetine 20 mg daily as per home dose. (8) Recreational drug use Is this a current diagnosis for this admission?: Yes Plan: Patient reports history of prior polypharmacy recreational drug use. Including history of heroin use, amphetamines, and ecstasy. Last heroin use 6 months ago. - Maintained with Suboxone 8mg SL BID (9) Right knee pain Qualifiers: Chronicity: acute Qualified Code(s): M25.561 - Pain in right knee Is this a current diagnosis for this admission?: Yes Plan: Worked up at [facility] without significant findings. Pain is minimal today. Lidocaine patch. Tylenol 1000 mg q8 prn. (10) Right groin pain Is this a current diagnosis for this admission?: Yes Plan: History of R groin pain on admission. Without associated lymphadema. Full ROM, ambulatory without edema, erythema or warmth. X-ray right hip without acute findings. - No further work up at this time Lidocaine patches Tylenol prn for pain (11) Tobacco use Is this a current diagnosis for this admission?: Yes Plan: Long standing history of tobacco use. Smokes ~1 ppd. Provide nicotine patch daily. (12) Hypotension Qualifiers: Hypotension type: idiopathic hypotension Qualified Code(s): I95.0 - Idiopathic hypotension Is this a current diagnosis for this admission?: Yes Plan: Blood pressure consistently low 100/70s. Discussed with patient, reports baseline BP low 100/70s. Previous hospitalization reviewed BP consistent with low 100/70s. [facility] records reviewed, BP consistent with low 100/70s. Monitor. - Plan Summary Summary: Cnt Nafcillin as above. Repeat brain MRI w/w/o contrast on 06/11 (Send disc with images to [facility]).CT surgery scheduled at [facility] for 06/16, transfer back to [facility] 06/15 prior to surgery with Dr. Martinez. Possible need for COVID test prior to transfer back. - Time Time Spent with patient: 15-24 minutes Smoking Cessation Education: 3 to 10 minutes Medications reviewed and adjusted accordingly: Yes Anticipated Discharge Disposition: [facility] 06/15 Anticipated Discharge Timeframe: 06/15
[2020-06-09] MEDS ORDERED: LIDOCAINE 5% (700 MG) TRANSDERMAL ADH..PATCH TP ONE (18:00)
[2020-06-09] MEDS: TRAZODONE HCL 50 MG TABLET PO SCH (22:11)
[2020-06-09] MEDS: INSULIN GLARGINE,HUM.REC.ANLOG 1,000 UNIT/10 ML VIAL SUBCUT SCH (22:12)
[2020-06-09] MEDS: MELATONIN 3 MG TABLET PO SCH (22:12)
[2020-06-09] MEDS: PHARMACY COMMUNICATION ORDER MC SCH (22:22)
[2020-06-10] MEDS: NAFCILLIN SODIUM 2 GM in DEXTROSE 5%-WATER 100 ML IV SCH ×6 (03:00→22:00)
[2020-06-10] MEDS: HEPARIN SOD (PORCINE) 5,000 UNIT/ML 1 ML VIAL SUBCUT SCH ×3 (06:02→22:01)
[2020-06-10] MEDS: GABAPENTIN 300 MG CAPSULE PO SCH ×3 (06:02→21:59)
[2020-06-10] MEDS: INSULIN LISPRO 100 UNIT/ML 3 ML VIAL SUBCUT SCH ×6 (07:53→16:29)
[2020-06-10] MEDS: ACETAMINOPHEN 325 MG TABLET PO PRN ×2 (07:57→15:27)
[2020-06-10 08:04] LABS: ABSOLUTE RETICS # 0.168 10^6/uL (0.028-0.122); RETICULOCYTE COUNT (AUTO) 6.03 % (0.66-2.85)
[2020-06-10 08:30] LABS: IRON(TIBC) 72.1 ug/dL (37-170)
[2020-06-10] MEDS: PAROXETINE HCL 20 MG TABLET PO SCH (09:33)
[2020-06-10] MEDS: BUPRENORPHINE HCL 2 MG SUBLINGUAL TABLET SL SCH ×2 (09:33→21:59)
[2020-06-10] MEDS: DOCUSATE SODIUM 100 MG CAPSULE PO SCH (09:34)
[2020-06-10] MEDS: LIDOCAINE 5% (700 MG) TRANSDERMAL ADH..PATCH TP SCH (09:34)
[2020-06-10] MEDS: NICOTINE 21 MG/24 HR PATCH.TD24 TD SCH (09:34)
[2020-06-10] MEDS: NORMAL SALINE 10 ML SDV (SCHEDULED) IV SCH ×2 (09:34→22:00)
[2020-06-10 09:37] LABS: FOLATE 5.29 ng/mL (>2.76)
[2020-06-10] MEDS ORDERED: LIDOCAINE 5% (700 MG) TRANSDERMAL ADH..PATCH TP SCH (10:00)
--- NOTE | 2020-06-10 15:22 | PDOC PROGRESS REPORT ---
Subjective Date:: 06/10/20 Subjective:: ИВАН MONTELONGO is a 35 year old female with history of IV heroin use who was r eceived this morning as a transfer-back to [facility] from [facility] for continued antibiotic therapy. Patient initially evaluated at [facility] on 05/19/2020 for AMS. She was inevitably found to have MSSA mitral valve endocarditis with septicemia, currently being treated with Nafcillin 2g q4hr as per ID recommendations, with negative blood cultures as of 05/23/2020. On BABAK patient was found to have large mitral valve mass requiring surgery and was thus transferred to [facility] for further treatment and evaluation on 05/29/2020. Pt evaluated at [facility] and is scheduled for CT surgery at [facility] on 06/16/2020, to be transferred back to [facility] on 06/15. [facility] records reviewed in detail and have been scanned into chart. Her hospital course at [facility] complicated by septic emboli to the lung and brain. Patient followed by neuro/neurosurgery at [facility] who request repeat MRI brain w/w/o on 06/11 for comparison. On presentation patient is hemodynamically stable with VSS. Her only complaint is that she is experiencing right hip and right knee pain. Right hip pain is acute 3 days duration described as an ache which she relates to swollen lymph nodes in her groin. The right knee pain has been addressed and evaluated by [facility] currently treating with lidocaine patches and Tylenol. No further complaints or concerns at this time. I have accepted the patient to hospitalist service for continued antibiotic therapy until she is to be transferred back to [facility] on date as stated above. 06/10/20 Care assumed today. Interval history reviewed. patient was seen and examined at bedside. She denies any chest pain, SOB. Complains of right thigh pain and right knee pain, no tenderness or swelling. Afebrile with good appetite. Reason For Visit: PNEUMONIA Physical Exam Vital Signs: Temp Pulse Resp BP Pulse Ox 98.4 F 74 17 100/60 98 06/10/20 10:00 06/10/20 07:00 06/10/20 07:00 06/10/20 07:00 06/10/20 07:00 Intake & Output 06/09/20 06/10/20 06/11/20 06:59 06:59 06:59 Intake Total 2200 1300 Balance 2200 1300 Weight 73.8 kg 77.4 kg General appearance: PRESENT: no acute distress, cooperative Head exam: PRESENT: atraumatic, normocephalic Eye exam: PRESENT: EOMI, PERRLA Mouth exam: PRESENT: moist Neck exam: PRESENT: full ROM Respiratory exam: PRESENT: clear to auscultation brandon, symmetrical, unlabored Cardiovascular exam: PRESENT: RRR, +S1, +S2 GI/Abdominal exam: PRESENT: normal bowel sounds, soft. ABSENT: rebound, tenderness Musculoskeletal exam: PRESENT: full ROM Neurological exam: PRESENT: alert, awake, oriented to person, oriented to place, oriented to time, oriented to situation Psychiatric exam: PRESENT: normal mood Skin exam: PRESENT: normal color Results Laboratory Results: 06/09/20 13:56 06/08/20 05:15 06/10/20 06/10/20 07:48 07:48 Retic Count (auto) 6.03 H Magnesium 1.8 Iron 72.1 TIBC 270 % Saturation 27 Ferritin 77.10 Vitamin B12 278.0 Folate 5.29 Impressions: Hip/Pelvis X-Ray 06/07/20 00:00 IMPRESSION: No significant osseous findings. Large stool burden. Assessment and Plan - Diagnosis (1) Vegetative endocarditis of mitral valve Is this a current diagnosis for this admission?: Yes Plan: Patient with longstanding history IV drug use. - 05/19 admitted OM for AMS - 05/20 TTE showed normal cardiac function, negative for vegetations, mild pulmonary hypertension - 05/21 + BC MSSA x2 bottles - 05/23 Negative BC on Nafcillin 2g q4hr - 05/29 BABAK 2.8 x 1 cm posterior leaflet mitral valve vegetation - 05/29 transferred to [facility] - Repeat TTE at [facility] large mobile vegetation measuring 3.2x1.4cm with trivial MR. - CT surgery scheduled at [facility] for 06/16, transfer back to [facility] 06/15 prior to surgery with Dr. Martinez. - continue Nafcillin (2) Septic embolism Is this a current diagnosis for this admission?: Yes Plan: Concern for septic emboli to brain based on MRI w/w/o as per [facility] records - Neuro/neurosurgery consulted at [facility] - Lesions suspect for small abscess - No warrant for further surgical intervention - Recommend medical management - continue Nafcillin Repeat brain MRI w/w/o contrast on 06/11 - Send disc with images to [facility] (3) Right groin pain Is this a current diagnosis for this admission?: Yes Plan: History of R groin pain on admission. Without associated lymphadema. Full ROM, ambulatory without edema, erythema or warmth. X-ray right hip without acute findings. - No further work up at this time Lidocaine patches Tylenol prn for pain (4) Right knee pain Qualifiers: Chronicity: acute Qualified Code(s): M25.561 - Pain in right knee Is this a current diagnosis for this admission?: Yes Plan: Worked up at [facility] without significant findings. Pain is minimal today. Lidocaine patch. Tylenol 1000 mg q8 prn. 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 exterminator insulin use status Diabetes mellitus complication status: with unspecified complications Is this a current diagnosis for this admission?: Yes Plan: - continue Lantus 30 u QHS and 8 u with meals plus SSI - accucheck - hypoglycemia protocol (7) Heroin abuse Is this a current diagnosis for this admission?: Yes Plan: - on subutex 8 mg BID - dose confirmed from prior admission (8) MSSA (methicillin susceptible Staphylococcus aureus) septicemia Is this a current diagnosis for this admission?: Yes Plan: Consistently negative blood cultures since 05/23/2020 Continue Nafcillin 2g IV q4hr Monitor BMP q3days (9) Sepsis Qualifiers: Sepsis type: sepsis due to unspecified organism Sepsis acute organ dysfunction status: with acute organ dysfunction Severe sepsis acute organ dysfunction type: encephalopathy Severe sepsis shock status: without septic shock Qualified Code(s): A41.9 - Sepsis, unspecified organism; R65.20 - Severe sepsis without septic shock; G93.40 - Encephalopathy, unspecified Is this a current diagnosis for this admission?: Yes Plan: resolved - Plan Summary Summary: Cnt Nafcillin as above. Repeat brain MRI w/w/o contrast on 06/11 (Send disc with images to [facility]).CT surgery scheduled at [facility] for 06/16, transfer back to [facility] 06/15 prior to surgery with Dr. Martinez. Possible need for COVID test prior to transfer back. - Time Time Spent with patient: 25-34 minutes Medications reviewed and adjusted accordingly: Yes Anticipated Discharge Disposition: Tertiary Anticipated Discharge Timeframe: TBD
[2020-06-10] MEDS: INSULIN GLARGINE,HUM.REC.ANLOG 1,000 UNIT/10 ML VIAL SUBCUT SCH (21:59)
[2020-06-10] MEDS: MELATONIN 3 MG TABLET PO SCH (21:59)
[2020-06-10] MEDS: TRAZODONE HCL 50 MG TABLET PO SCH (21:59)
[2020-06-10] MEDS: PHARMACY COMMUNICATION ORDER MC SCH (22:10)
[2020-06-11] MEDS: ACETAMINOPHEN 325 MG TABLET PO PRN ×2 (03:04→17:40)
[2020-06-11] MEDS: NAFCILLIN SODIUM 2 GM in DEXTROSE 5%-WATER 100 ML IV SCH ×6 (03:04→22:00)
[2020-06-11] MEDS: GABAPENTIN 300 MG CAPSULE PO SCH ×3 (06:03→21:59)
[2020-06-11] MEDS: HEPARIN SOD (PORCINE) 5,000 UNIT/ML 1 ML VIAL SUBCUT SCH ×3 (06:04→22:01)
[2020-06-11 07:03] LABS: ABSOLUTE EOSINOPHILS # (AUTO) 0.1 10^3/uL (0.0-0.6); ABSOLUTE LYMPHOCYTES (AUTO) 0.8 10^3/uL (0.5-4.7); ABSOLUTE MONOCYTES (AUTO) 0.3 10^3/uL (0.1-1.4); ABSOLUTE NEUT (AUTO) 3.2 10^3/uL (1.7-8.2); BASOPHILS % (AUTO) 0.7 % (0-2); EOSINOPHILS % (AUTO) 1.8 % (0-6); HEMATOCRIT 25.6 % (36.0-47.0); HEMOGLOBIN 8.7 g/dL (12.0-15.5); LYMPHOCYTES % (AUTO) 18.1 % (13-45); MEAN CORPUSCULAR HEMOGLOBIN 30.5 pg (27.0-33.4); MEAN CORPUSCULAR HGB CONC 34.2 g/dL (32.0-36.0); MEAN CORPUSCULAR VOLUME 89 fl (80-97); MONOCYTES % (AUTO) 6.5 % (3-13); PLATELET COUNT 329 10^3/uL (150-450); RED BLOOD COUNT 2.86 10^6/uL (3.72-5.28); RED CELL DISTRIBUTION WIDTH 18.1 % (11.5-14.0); SEGMENTED NEUTROPHILS % (AUTO) 72.9 % (42-78); TOTAL CELLS COUNTED % (AUTO) 100 %; WHITE BLOOD COUNT 4.4 10^3/uL (4.0-10.5)
[2020-06-11 07:30] LABS: ALBUMIN 3.3 g/dL (3.5-5.0); ALKALINE PHOSPHATASE 89 U/L (38-126); ANION GAP 7 (5-19); ASPARTATE AMINO TRANSFERASE 27 U/L (14-36); BILIRUBIN,DIRECT 0.4 mg/dL (0.0-0.4); BILIRUBIN,TOTAL 0.7 mg/dL (0.2-1.3); BLOOD UREA NITROGEN 11 mg/dL (7-20); CALCIUM 9.5 mg/dL (8.4-10.2); CARBON DIOXIDE 30 mmol/L (22-30); CHLORIDE 98 mmol/L (98-107); GLUCOSE 163 mg/dL (75-110); POTASSIUM 4.5 mmol/L (3.6-5.0); TOTAL PROTEIN 7.2 g/dL (6.3-8.2)
[2020-06-11] MEDS: INSULIN LISPRO 100 UNIT/ML 3 ML VIAL SUBCUT SCH ×6 (07:51→16:39)
[2020-06-11] MEDS: PAROXETINE HCL 20 MG TABLET PO SCH (09:35)
[2020-06-11] MEDS: NICOTINE 21 MG/24 HR PATCH.TD24 TD SCH (09:35)
[2020-06-11] MEDS: DOCUSATE SODIUM 100 MG CAPSULE PO SCH (09:35)
[2020-06-11] MEDS: LIDOCAINE 5% (700 MG) TRANSDERMAL ADH..PATCH TP SCH (09:35)
[2020-06-11] MEDS: BUPRENORPHINE HCL 2 MG SUBLINGUAL TABLET SL SCH ×2 (09:35→21:59)
[2020-06-11] MEDS: NORMAL SALINE 10 ML SDV (SCHEDULED) IV SCH ×2 (09:36→22:00)
[2020-06-11] MEDS: HYDROXYZINE PAMOATE 25 MG CAPSULE PO PRN (17:40)
--- NOTE | 2020-06-11 18:07 | PDOC PROGRESS REPORT ---
Subjective Date:: 06/11/20 Subjective:: ИВАН MONTELONGO is a 35 year old female with history of IV heroin use who was r eceived this morning as a transfer-back to [facility] from [facility] for continued antibiotic therapy. Patient initially evaluated at [facility] on 05/19/2020 for AMS. She was inevitably found to have MSSA mitral valve endocarditis with septicemia, currently being treated with Nafcillin 2g q4hr as per ID recommendations, with negative blood cultures as of 05/23/2020. On BABAK patient was found to have large mitral valve mass requiring surgery and was thus transferred to [facility] for further treatment and evaluation on 05/29/2020. Pt evaluated at [facility] and is scheduled for CT surgery at [facility] on 06/16/2020, to be transferred back to [facility] on 06/15. [facility] records reviewed in detail and have been scanned into chart. Her hospital course at [facility] complicated by septic emboli to the lung and brain. Patient followed by neuro/neurosurgery at [facility] who request repeat MRI brain w/w/o on 06/11 for comparison. On presentation patient is hemodynamically stable with VSS. Her only complaint is that she is experiencing right hip and right knee pain. Right hip pain is acute 3 days duration described as an ache which she relates to swollen lymph nodes in her groin. The right knee pain has been addressed and evaluated by [facility] currently treating with lidocaine patches and Tylenol. No further complaints or concerns at this time. I have accepted the patient to hospitalist service for continued antibiotic therapy until she is to be transferred back to [facility] on date as stated above. 06/10/20 Care assumed today. Interval history reviewed. patient was seen and examined at bedside. She denies any chest pain, SOB. Complains of right thigh pain and right knee pain, no tenderness or swelling. Afebrile with good appetite. 06/11/20 She was seen and examined at bedside. Doing well overall. Denies any chest pain, SOB. MRI head done today awaiting result. Reason For Visit: PNEUMONIA Physical Exam Vital Signs: Temp Pulse Resp BP Pulse Ox 98.0 F 79 18 124/55 L 98 06/11/20 15:49 06/11/20 15:49 06/11/20 15:49 06/11/20 15:49 06/11/20 15:49 Intake & Output 06/10/20 06/11/20 06/12/20 06:59 06:59 06:59 Intake Total 1300 1170 880 Balance 1300 1170 880 Weight 77.4 kg 77.3 kg 68.7 kg General appearance: PRESENT: no acute distress, cooperative Head exam: PRESENT: atraumatic, normocephalic Eye exam: PRESENT: EOMI, PERRLA Mouth exam: PRESENT: moist Neck exam: PRESENT: full ROM Respiratory exam: PRESENT: clear to auscultation brandon, symmetrical, unlabored Cardiovascular exam: PRESENT: RRR, +S1, +S2 Pulses: PRESENT: +2 pedal pulses bilateral GI/Abdominal exam: PRESENT: normal bowel sounds, soft. ABSENT: rebound, tenderness Extremities exam: PRESENT: full ROM Musculoskeletal exam: PRESENT: full ROM Neurological exam: PRESENT: alert, awake, oriented to person, oriented to place, oriented to time Psychiatric exam: PRESENT: normal mood Skin exam: PRESENT: normal color Results Laboratory Results: 06/11/20 06:11 06/11/20 06:11 06/11/20 06/11/20 06:11 06:11 WBC 4.4 RBC 2.86 L Hgb 8.7 L Hct 25.6 L MCV 89 MCH 30.5 MCHC 34.2 RDW 18.1 H Plt Count 329 Seg Neutrophils % 72.9 Sodium 134.8 L Potassium 4.5 Chloride 98 Carbon Dioxide 30 Anion Gap 7 BUN 11 Creatinine 0.66 Est GFR ( Amer) > 60 Glucose 163 H Calcium 9.5 Total Bilirubin 0.7 AST 27 Alkaline Phosphatase 89 Total Protein 7.2 Albumin 3.3 L Impressions: Hip/Pelvis X-Ray 06/07/20 00:00 IMPRESSION: No significant osseous findings. Large stool burden. Assessment and Plan - Diagnosis (1) Vegetative endocarditis of mitral valve Is this a current diagnosis for this admission?: Yes Plan: Patient with longstanding history IV drug use. - 05/19 admitted OM for AMS - 05/20 TTE showed normal cardiac function, negative for vegetations, mild pulmonary hypertension - 05/21 + BC MSSA x2 bottles - 05/23 Negative BC on Nafcillin 2g q4hr - 05/29 BABAK 2.8 x 1 cm posterior leaflet mitral valve vegetation - 05/29 transferred to [facility] - Repeat TTE at [facility] large mobile vegetation measuring 3.2x1.4cm with trivial MR. - CT surgery scheduled at [facility] for 06/16, transfer back to [facility] 06/15 prior to surgery with Dr. Martinez. - continue Nafcillin (2) Septic embolism Is this a current diagnosis for this admission?: Yes Plan: Concern for septic emboli to brain based on MRI w/w/o as per [facility] records - Neuro/neurosurgery consulted at [facility] - Lesions suspect for small abscess - No warrant for further surgical intervention - Recommend medical management - continue Nafcillin Repeat brain MRI w/w/o contrast on 06/11 awaiting result - Send disc with images to [facility] (3) Right groin pain Is this a current diagnosis for this admission?: Yes Plan: History of R groin pain on admission. Without associated lymphadema. Full ROM, ambulatory without edema, erythema or warmth. X-ray right hip without acute findings. - No further work up at this time Lidocaine patches Tylenol prn for pain (4) Right knee pain Qualifiers: Chronicity: acute Qualified Code(s): M25.561 - Pain in right knee Is this a current diagnosis for this admission?: Yes Plan: Worked up at [facility] without significant findings. Pain is minimal today. Lidocaine patch. Tylenol 1000 mg q8 prn. (5) Acute metabolic encephalopathy Is this a current diagnosis for this admission?: Yes Plan: - resolved - 2/2 septic emboli to brain (6) Diabetes Qualifiers: Diabetes mellitus type: type 2 Diabetes mellitus ad terminal makeup operator insulin use: unspecified ad terminal makeup operator insulin use status Diabetes mellitus complication status: with unspecified complications Is this a current diagnosis for this admission?: Yes Plan: - continue Lantus 30 u QHS and 8 u with meals plus SSI - accucheck - hypoglycemia protocol (7) Heroin abuse Is this a current diagnosis for this admission?: Yes Plan: - on subutex 8 mg BID - dose confirmed from prior admission (8) MSSA (methicillin susceptible Staphylococcus aureus) septicemia Is this a current diagnosis for this admission?: Yes Plan: Consistently negative blood cultures since 05/23/2020 Continue Nafcillin 2g IV q4hr Monitor BMP q3days (9) Sepsis Qualifiers: Sepsis type: sepsis due to unspecified organism Sepsis acute organ dysfunction status: with acute organ dysfunction Severe sepsis acute organ dysfunction type: encephalopathy Severe sepsis shock status: without septic shock Qualified Code(s): A41.9 - Sepsis, unspecified organism; R65.20 - Severe sepsis without septic shock; G93.40 - Encephalopathy, unspecified Is this a current diagnosis for this admission?: Yes Plan: resolved - Plan Summary Summary: Cnt Nafcillin as above. Repeat brain MRI w/w/o contrast on 06/11 (Send disc with images to [facility]).CT surgery scheduled at [facility] for 06/16, transfer back to [facility] 06/15 prior to surgery with Dr. Martinez. Possible need for COVID test prior to transfer back. - Time Time Spent with patient: 15-24 minutes Medications reviewed and adjusted accordingly: Yes Anticipated Discharge Disposition: Tertiary Anticipated Discharge Timeframe: TBD
--- NOTE | 2020-06-11 19:23 | RADIOLOGY REPORT (SQ) ---
EXAM DESCRIPTION: MRI HEAD COMBO IMAGES COMPLETED DATE/TIME: 06/11/2020 9:48 am REASON FOR STUDY: follow up on suspicious abscess/emboli. Patient has been feeling better now. Celeste stafford. Recent trauma. Follow-up to previous examination. Previously the patient was unable to hold still for examination. History of disseminated septic emboli. COMPARISON: None. TECHNIQUE: Multiplanar imaging includes noncontrasted T1, T2, FLAIR, diffusion with ADC map and post gadolinium contrast T1 sequences. Images stored on PACS. CONTRAST TYPE AND DOSE: 15 mL ProHance RENAL FUNCTION: Not indicated. ACR Type II contrast agent associated with few, if any, unconfounded cases of NSF LIMITATIONS: None. FINDINGS: ANATOMY: No anomalies. Normal vascular flow voids. Pituitary fossa normal. CSF SPACES: Normal in size and contour. No hemorrhage. CEREBRUM: There are multiple enhancing lesions within the cerebral hemispheres bilaterally, in the ar eas of previous restricted diffusion on MRI a 05/25/2020. There is minimal residual restricted diffus ion in these areas. The largest lesion is seen in the right parietal lobe ibarra-white junction measur ing 1.5 x 1.1 cm. This 1 demonstrates peripheral thick walled enhancement with surrounding edema, an d is consistent with a septic embolus. Slightly posterior and superior in the right parietal lobe th ere is a 0.8 cm similar-appearing enhancing lesion. In the left parietal lobe there is a 4 mm enhanc ing lesion in the right posterior parietal-occipital lobe there is a similar peripherally enhancing l esion measuring 1.5 x 0.8 cm. Adjacent satellite nodule measures 4 mm. Additional scattered foci of enhancement at the ibarra-white junction in the mesial right frontal lobe and right posterior parietal lobe as well as the left lateral parietal lobe. T2 weighted series and demonstrate moderate edema s urrounding the areas of enhancement with no significant mass effect or midline shift. No evidence or herniation. POSTERIOR FOSSA: No signal alteration. No hemorrhage. No edema, masses, or mass effect. Internal lillian tory canals, cerebellopontine angles, mastoids normal. No enhancing lesions. No abnormal enhancement post contrast. DIFFUSION IMAGING: There is significant improvement since the previous examination in the areas of re stricted diffusion. A few new punctate foci of restricted diffusion in the high left parietal lobe a nd posterior right mesial parietal lobe demonstrate no associated enhancement. ORBITS: No masses. Globes normal. PARANASAL SINUSES: No fluid levels. Mucosa normal. OTHER: No leptomeningeal or dural enhancement. IMPRESSION: 1. Multiple rim enhancing lesions within the cerebral hemispheres bilaterally, similar which correspo nded previous areas of restricted diffusion, consistent with multifocal septic emboli. 2. A couple of new foci of restricted diffusion in the parietal lobes bilaterally without associated enhancement may represent small bland embolic infarcts. 3. No significant mass effect, evidence of acute territorial infarct or intracranial hemorrhage. EVIDENCE OF ACUTE STROKE: NO. TECHNICAL DOCUMENTATION: JOB ID: [id number] [employer]- All Rights Reserved Reading location - IP/workstation name: [id number]
[2020-06-11] MEDS: MELATONIN 3 MG TABLET PO SCH (21:59)
[2020-06-11] MEDS: INSULIN GLARGINE,HUM.REC.ANLOG 1,000 UNIT/10 ML VIAL SUBCUT SCH (21:59)
[2020-06-11] MEDS: TRAZODONE HCL 50 MG TABLET PO SCH (21:59)
[2020-06-11] MEDS: PHARMACY COMMUNICATION ORDER MC SCH (22:01)
[2020-06-12] MEDS: NAFCILLIN SODIUM 2 GM in DEXTROSE 5%-WATER 100 ML IV SCH ×6 (02:58→21:38)
[2020-06-12] MEDS: GABAPENTIN 300 MG CAPSULE PO SCH ×3 (05:30→21:35)
[2020-06-12] MEDS: HEPARIN SOD (PORCINE) 5,000 UNIT/ML 1 ML VIAL SUBCUT SCH ×3 (05:31→21:37)
[2020-06-12] MEDS: ACETAMINOPHEN 325 MG TABLET PO PRN ×3 (05:54→21:50)
[2020-06-12] MEDS: HYDROXYZINE PAMOATE 25 MG CAPSULE PO PRN ×2 (07:32→18:09)
[2020-06-12] MEDS: INSULIN LISPRO 100 UNIT/ML 3 ML VIAL SUBCUT SCH ×6 (07:32→15:14)
[2020-06-12] MEDS: DOCUSATE SODIUM 100 MG CAPSULE PO SCH (09:29)
[2020-06-12] MEDS: NICOTINE 21 MG/24 HR PATCH.TD24 TD SCH (09:29)
[2020-06-12] MEDS: PAROXETINE HCL 20 MG TABLET PO SCH (09:29)
[2020-06-12] MEDS: LIDOCAINE 5% (700 MG) TRANSDERMAL ADH..PATCH TP SCH (09:29)
[2020-06-12] MEDS: BUPRENORPHINE HCL 2 MG SUBLINGUAL TABLET SL SCH ×2 (09:29→21:36)
[2020-06-12] MEDS: NORMAL SALINE 10 ML SDV (SCHEDULED) IV SCH ×2 (09:30→21:36)
--- NOTE | 2020-06-12 14:01 | PDOC PROGRESS REPORT ---
Subjective Date:: 06/12/20 Subjective:: ИВАН MONTELONGO is a 35 year old female with history of IV heroin use who was r eceived this morning as a transfer-back to [facility] from [facility] for continued antibiotic therapy. Patient initially evaluated at [facility] on 05/19/2020 for AMS. She was inevitably found to have MSSA mitral valve endocarditis with septicemia, currently being treated with Nafcillin 2g q4hr as per ID recommendations, with negative blood cultures as of 05/23/2020. On BABAK patient was found to have large mitral valve mass requiring surgery and was thus transferred to [facility] for further treatment and evaluation on 05/29/2020. Pt evaluated at [facility] and is scheduled for CT surgery at [facility] on 06/16/2020, to be transferred back to [facility] on 06/15. [facility] records reviewed in detail and have been scanned into chart. Her hospital course at [facility] complicated by septic emboli to the lung and brain. Patient followed by neuro/neurosurgery at [facility] who request repeat MRI brain w/w/o on 06/11 for comparison. On presentation patient is hemodynamically stable with VSS. Her only complaint is that she is experiencing right hip and right knee pain. Right hip pain is acute 3 days duration described as an ache which she relates to swollen lymph nodes in her groin. The right knee pain has been addressed and evaluated by [facility] currently treating with lidocaine patches and Tylenol. No further complaints or concerns at this time. I have accepted the patient to hospitalist service for continued antibiotic therapy until she is to be transferred back to [facility] on date as stated above. 06/10/20 Care assumed today. Interval history reviewed. patient was seen and examined at bedside. She denies any chest pain, SOB. Complains of right thigh pain and right knee pain, no tenderness or swelling. Afebrile with good appetite. 06/11/20 She was seen and examined at bedside. Doing well overall. Denies any chest pain, SOB. MRI head done today awaiting result. 06/12/20. She was seen and examined at bedside. No new complains. MRI head res ult reviewed which showed multiple rim-enhancing lesions within the cerebral hemisphere bilaterally similar to previous areas of restricted diffusion consistent with multifocal septic emboli. Couple of new foci of restricted diffusion in the parietal lobe bilateral without associated enhancement may represent small bland embolic infarcts. She has no new neurologic deficit. Images power shared to [facility]. Reason For Visit: PNEUMONIA Physical Exam Vital Signs: Temp Pulse Resp BP Pulse Ox 98.1 F 87 18 96/48 L 92 06/12/20 10:59 06/12/20 10:59 06/12/20 10:59 06/12/20 10:59 06/12/20 10:59 Intake & Output 06/11/20 06/12/20 06/13/20 06:59 06:59 06:59 Intake Total 1170 2180 Balance 1170 2180 Weight 77.3 kg 75.4 kg General appearance: PRESENT: no acute distress, cooperative Head exam: PRESENT: atraumatic, normocephalic Eye exam: PRESENT: EOMI, PERRLA Mouth exam: PRESENT: moist Neck exam: PRESENT: full ROM Respiratory exam: PRESENT: clear to auscultation brandon, symmetrical, unlabored Cardiovascular exam: PRESENT: RRR, +S1, +S2 Pulses: PRESENT: +2 pedal pulses bilateral GI/Abdominal exam: PRESENT: normal bowel sounds, soft. ABSENT: rebound, tenderness Extremities exam: PRESENT: full ROM Musculoskeletal exam: PRESENT: full ROM Neurological exam: PRESENT: alert, awake, oriented to person, oriented to place, oriented to time, oriented to situation Psychiatric exam: PRESENT: normal mood Skin exam: PRESENT: normal color Results Laboratory Results: 06/11/20 06:11 06/11/20 06:11 Impressions: Hip/Pelvis X-Ray 06/07/20 00:00 IMPRESSION: No significant osseous findings. Large stool burden. Head MRI 06/11/20 00:00 IMPRESSION: 1. Multiple rim enhancing lesions within the cerebral hemispheres bilaterally, similar which corresponded previous areas of restricted diffusion, consistent with multifocal septic emboli. 2. A couple of new foci of restricted diffusion in the parietal lobes bilaterally without associated enhancement may represent small bland embolic infarcts. 3. No significant mass effect, evidence of acute territorial infarct or intracranial hemorrhage. EVIDENCE OF ACUTE STROKE: NO. Assessment and Plan - Diagnosis (1) Vegetative endocarditis of mitral valve Is this a current diagnosis for this admission?: Yes Plan: Patient with longstanding history IV drug use. - 05/19 admitted [facility] for AMS - 05/20 TTE showed normal cardiac function, negative for vegetations, mild pulmonary hypertension - 05/21 + BC MSSA x2 bottles - 05/23 Negative BC on Nafcillin 2g q4hr - 05/29 BABAK 2.8 x 1 cm posterior leaflet mitral valve vegetation - 05/29 transferred to [facility] - Repeat TTE at [facility] large mobile vegetation measuring 3.2x1.4cm with trivial MR. - CT surgery scheduled at [facility] for 06/16, transfer back to [facility] 06/15 prior to surgery with Dr. Martinez. - continue Nafcillin (2) Septic embolism Is this a current diagnosis for this admission?: Yes Plan: Concern for septic emboli to brain based on MRI w/w/o as per [facility] records - Neuro/neurosurgery consulted at [facility] - Lesions suspect for small abscess - No warrant for further surgical intervention - Recommend medical management - continue Nafcillin Repeat brain MRI w/w/o contrast on 06/11 multiple rim-enhancing lesions within the cerebral hemispheres bilaterally similar which corresponded to previous areas of restricted diffusion, consistent with multifocal septic emboli. A couple of new foci of restricted diffusion in the parietal lobe bilaterally without associated enhancement may represent small bland embolic infarcts. No signs of acute stroke. - images powershared to [facility] (3) Right groin pain Is this a current diagnosis for this admission?: Yes Plan: History of R groin pain on admission. Without associated lymphadema. Full ROM, ambulatory without edema, erythema or warmth. X-ray right hip without acute findings. - No further work up at this time Lidocaine patches Tylenol prn for pain (4) Right knee pain Qualifiers: Chronicity: acute Qualified Code(s): M25.561 - Pain in right knee Is this a current diagnosis for this admission?: Yes Plan: Worked up at [facility] without significant findings. Pain is minimal today. Lidocaine patch. Tylenol 1000 mg q8 prn. 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 trader insulin use: unspecified corporate bond trader insulin use status Diabetes mellitus complication status: with unspecified complications Is this a current diagnosis for this admission?: Yes Plan: - continue Lantus 30 u QHS and 8 u with meals plus SSI - accucheck - hypoglycemia protocol (7) Heroin abuse Is this a current diagnosis for this admission?: Yes Plan: - on subutex 8 mg BID - dose confirmed from prior admission (8) MSSA (methicillin susceptible Staphylococcus aureus) septicemia Is this a current diagnosis for this admission?: Yes Plan: Consistently negative blood cultures since 05/23/2020 Continue Nafcillin 2g IV q4hr Monitor BMP q3days (9) Sepsis Qualifiers: Sepsis type: sepsis due to unspecified organism Sepsis acute organ dysfunction status: with acute organ dysfunction Severe sepsis acute organ dysfunction type: encephalopathy Severe sepsis shock status: without septic shock Qualified Code(s): A41.9 - Sepsis, unspecified organism; R65.20 - Severe sepsis without septic shock; G93.40 - Encephalopathy, unspecified Is this a current diagnosis for this admission?: Yes Plan: resolved - Plan Summary Summary: Cnt Nafcillin as above.CT surgery scheduled at [facility] for 06/16, transfer back to [facility] 06/15 prior to surgery with Dr[address] Martinez. Possible need for COVID test prior to transfer back. - Time Time Spent with patient: 15-24 minutes Medications reviewed and adjusted accordingly: Yes Anticipated Discharge Disposition: Tertiary Anticipated Discharge Timeframe: TBD
[2020-06-12] MEDS: TRAZODONE HCL 50 MG TABLET PO SCH (21:35)
[2020-06-12] MEDS: MELATONIN 3 MG TABLET PO SCH (21:36)
[2020-06-12] MEDS: PHARMACY COMMUNICATION ORDER MC SCH (21:37)
[2020-06-12] MEDS: INSULIN GLARGINE,HUM.REC.ANLOG 1,000 UNIT/10 ML VIAL SUBCUT SCH (21:37)
[2020-06-13] MEDS: NAFCILLIN SODIUM 2 GM in DEXTROSE 5%-WATER 100 ML IV SCH ×5 (02:13→17:53)
[2020-06-13] MEDS: GABAPENTIN 300 MG CAPSULE PO SCH ×2 (05:50→15:17)
[2020-06-13] MEDS: ACETAMINOPHEN 325 MG TABLET PO PRN ×2 (05:50→15:16)
[2020-06-13] MEDS: HEPARIN SOD (PORCINE) 5,000 UNIT/ML 1 ML VIAL SUBCUT SCH ×2 (05:50→15:16)
[2020-06-13 06:28] LABS: ABSOLUTE EOSINOPHILS # (AUTO) 0.1 10^3/uL (0.0-0.6); ABSOLUTE MONOCYTES (AUTO) 0.4 10^3/uL (0.1-1.4); ABSOLUTE NEUT (AUTO) 1.5 10^3/uL (1.7-8.2); EOSINOPHILS % (AUTO) 2.8 % (0-6); HEMATOCRIT 25.3 % (36.0-47.0); HEMOGLOBIN 8.6 g/dL (12.0-15.5); LYMPHOCYTES % (AUTO) 33.7 % (13-45); MEAN CORPUSCULAR HEMOGLOBIN 30.6 pg (27.0-33.4); MEAN CORPUSCULAR VOLUME 90 fl (80-97); MONOCYTES % (AUTO) 11.8 % (3-13); PLATELET COUNT 236 10^3/uL (150-450); RED BLOOD COUNT 2.81 10^6/uL (3.72-5.28); RED CELL DISTRIBUTION WIDTH 18.7 % (11.5-14.0); SEGMENTED NEUTROPHILS % (AUTO) 50.7 % (42-78); TOTAL CELLS COUNTED % (AUTO) 100 %
[2020-06-13 06:59] LABS: ALBUMIN 3.3 g/dL (3.5-5.0); ALKALINE PHOSPHATASE 130 U/L (38-126); ASPARTATE AMINO TRANSFERASE 158 U/L (14-36); BILIRUBIN,DIRECT 0.6 mg/dL (0.0-0.4); BILIRUBIN,TOTAL 0.9 mg/dL (0.2-1.3); BLOOD UREA NITROGEN 13 mg/dL (7-20); CALCIUM 9.2 mg/dL (8.4-10.2); CARBON DIOXIDE 31 mmol/L (22-30); CHLORIDE 99 mmol/L (98-107); GLUCOSE 191 mg/dL (75-110); POTASSIUM 4.2 mmol/L (3.6-5.0)
[2020-06-13 07:15] LABS: ANION GAP 4 (5-19)
[2020-06-13] MEDS: INSULIN LISPRO 100 UNIT/ML 3 ML VIAL SUBCUT SCH ×6 (07:30→16:18)
[2020-06-13] MEDS: BUPRENORPHINE HCL 2 MG SUBLINGUAL TABLET SL SCH (09:11)
[2020-06-13] MEDS: PAROXETINE HCL 20 MG TABLET PO SCH (09:12)
[2020-06-13] MEDS: DOCUSATE SODIUM 100 MG CAPSULE PO SCH (09:12)
[2020-06-13] MEDS: NORMAL SALINE 10 ML SDV (AFTER EACH USE) IV PRN (09:13)
[2020-06-13] MEDS: NICOTINE 21 MG/24 HR PATCH.TD24 TD SCH (09:16)
[2020-06-13] MEDS: NORMAL SALINE 10 ML SDV (SCHEDULED) IV SCH (09:18)
[2020-06-13] MEDS: LIDOCAINE 5% (700 MG) TRANSDERMAL ADH..PATCH TP SCH (11:30)
[2020-06-13] MEDS: HYDROXYZINE PAMOATE 25 MG CAPSULE PO PRN (15:17)
--- NOTE | 2020-06-13 18:56 | PDOC TRANSFER SUMMARY ---
General Admission Date/PCP: 06/07/20 14:05 Admission Date: 06/07/20 Transfer Date: 06/13/20 Accepting Facility: [facility] Accepting Physician: Dr. Martinez Resuscitation Status: Full Code - Transfer Diagnosis (1) MSSA (methicillin susceptible Staphylococcus aureus) septicemia Is this a current diagnosis for this admission?: Yes Diagnosis Summary: Consistently negative blood cultures since 05/23/2020 Continue Nafcillin 2g IV q4hr Monitor BMP q3days (2) Vegetative endocarditis of mitral valve Is this a current diagnosis for this admission?: Yes Diagnosis Summary: Patient with longstanding history IV drug use. - 05/19 admitted [facility] for AMS - 05/20 TTE showed normal cardiac function, negative for vegetations, mild pulmonary hypertension - 05/21 + BC MSSA x2 bottles - 05/23 Negative BC on Nafcillin 2g q4hr - 05/29 BABAK 2.8 x 1 cm posterior leaflet mitral valve vegetation - 05/29 transferred to [facility] - Repeat TTE at [facility] large mobile vegetation measuring 3.2x1.4cm with trivial MR. - CT surgery scheduled at [facility] for 06/16, transfer back to [facility] 06/15 prior to surgery with Dr. Martinez. - continue Nafcillin (3) Septic embolism Is this a current diagnosis for this admission?: Yes Diagnosis Summary: Concern for septic emboli to brain based on MRI w/w/o as per [facility] records - Neuro/neurosurgery consulted at [facility] - Lesions suspect for small abscess - No warrant for further surgical intervention - Recommend medical management - continue Nafcillin Repeat brain MRI w/w/o contrast on 06/11 multiple rim-enhancing lesions within the cerebral hemispheres bilaterally similar which corresponded to previous ar eas of restricted diffusion, consistent with multifocal septic emboli. A couple of new foci of restricted diffusion in the parietal lobe bilaterally without associated enhancement may represent small bland embolic infarcts. No signs of acute stroke. - images powershared to [facility] (4) Right groin pain Is this a current diagnosis for this admission?: Yes Diagnosis Summary: History of R groin pain on admission. Without associated lymphadema. Full ROM, ambulatory without edema, erythema or warmth. X-ray right hip without acute findings. - No further work up at this time Lidocaine patches Tylenol prn for pain (5) Right knee pain Is this a current diagnosis for this admission?: Yes Diagnosis Summary: Worked up at [facility] without significant findings. Pain is minimal today. Lidocaine patch. Tylenol 1000 mg q8 prn. (6) Acute metabolic encephalopathy Is this a current diagnosis for this admission?: Yes Diagnosis Summary: - resolved - 2/2 septic emboli to brain (7) Diabetes Is this a current diagnosis for this admission?: Yes Diagnosis Summary: - continue Lantus 30 u QHS and 8 u with meals plus SSI - accucheck - hypoglycemia protocol (8) Heroin abuse Is this a current diagnosis for this admission?: Yes Diagnosis Summary: - on subutex 8 mg BID - dose confirmed from prior admission (9) Sepsis Is this a current diagnosis for this admission?: Yes - Transfer Medications Home Medications: Buprenorphine HCl 8 mg SL BID 05/19/20 Gabapentin [Neurontin 300 mg Capsule] 300 mg PO Q6 05/19/20 Paroxetine HCl [Paxil 20 mg Tablet] 20 mg PO QAM 05/19/20 Hydroxyzine Pamoate [Vistaril 50 mg Capsule] 50 mg PO Q6HP PRN 06/07/20 Lidocaine [Lidocaine Pain Relief] 1 patch TOP DAILY 06/07/20 Trazodone HCl 150 mg PO QHS 06/07/20 Transfer Medications: Current Medications Acetaminophen (Acetaminophen 325 Mg Tablet) 975 mg PO Q6HP PRN PRN Reason: FOR PAIN Stop: 07/07/20 14:59 Last Admin: 06/13/20 15:16 Dose: 975 mg Documented by: Buprenorphine HCl (Buprenorphine Hcl 2 Mg Sublingual Tablet) 8 mg SL Q12 RACIEL Stop: 06/14/20 21:59 Last Admin: 06/13/20 09:11 Dose: 8 mg Documented by: Dextrose (Dextrose 50%-Water 25 Gm/50 Ml Disp.Syrin) 12.5 gm IV PRN PRN; Protocol PRN Reason: FOR BG 50-69 IN ALERT PATIENT Stop: 07/07/20 18:05 Dextrose (Dextrose 50%-Water 25 Gm/50 Ml Disp.Syrin) 25 gm IV PRN PRN; Protocol PRN Reason: PER PROTOCOL Stop: 07/07/20 18:05 Docusate Sodium (Docusate Sodium 100 Mg Capsule) 100 mg PO DAILY RACIEL Stop: 07/08/20 09:59 Last Admin: 06/13/20 09:12 Dose: 100 mg Documented by: Gabapentin (Gabapentin 300 Mg Capsule) 300 mg PO Q8 RACIEL Stop: 07/07/20 21:59 Last Admin: 06/13/20 15:17 Dose: 300 mg Documented by: Glucagon (Glucagon,Human Recomb 1 Mg Inj) 1 mg IM PRN PRN; Protocol PRN Reason: Evaluate for BG < 70 Stop: 07/07/20 18:05 Glucose (Dextrose 40% Gel 15 Gm Tube) 15 gm PO PRN PRN; Protocol PRN Reason: FOR BG 50-69 IN ALERT PATIENT Stop: 07/07/20 18:05 Glucose (Dextrose 40% Gel 15 Gm Tube) 30 gm PO PRN PRN; Protocol PRN Reason: FOR BG < 50 IN ALERT PATIENT Stop: 07/07/20 18:05 Heparin Sodium (Porcine) (Heparin Sod (Porcine) 5,000 Unit/Ml 1 Ml Vial) 5,000 unit SUBCUT Q8 RACIEL Stop: 07/08/20 05:59 Last Admin: 06/13/20 15:16 Dose: Not Given Documented by: Heparin Sodium (Porcine) (Heparin Sod 10 Unit/Ml 5 Ml Syr (Scheduled)) 30 unit IV Q12 RACIEL Stop: 07/07/20 21:59 Last Admin: 06/13/20 09:13 Dose: 30 unit Documented by: Heparin Sodium (Porcine) (Heparin Sod 10 Unit/Ml 5 Ml Syr (After Each Use)) 30 unit IV .AFTER EACH USE PRN Stop: 07/07/20 21:59 Last Admin: 06/09/20 13:45 Dose: 30 unit Documented by: Hydroxyzine Pamoate (Hydroxyzine Pamoate 25 Mg Capsule) 25 mg PO Q6HP PRN PRN Reason: ITCHING Stop: 07/09/20 10:35 Last Admin: 06/13/20 15:17 Dose: 25 mg Documented by: Nafcillin Sodium 2 gm/ (Dextrose) 100 mls @ 200 mls/hr IV Q4 RACIEL Stop: 06/14/20 17:59 Last Admin: 06/13/20 17:53 Dose: 200 mls/hr Documented by: Insulin Glargine (Insulin Glargine,Hum.Rec.Anlog 1,000 Unit/10 Ml Vial) 30 unit SUBCUT QHS RACIEL Stop: 07/07/20 21:59 Last Admin: 06/12/20 21:37 Dose: 30 unit Documented by: Insulin Human Lispro (Insulin Lispro 100 Unit/Ml 3 Ml Vial) 0 - 12 unit SUBCUT AC [facility]; Protocol Stop: 07/07/20 18:14 Last Admin: 06/13/20 16:18 Dose: 6 unit Documented by: Insulin Human Lispro (Insulin Lispro 100 Unit/Ml 3 Ml Vial) 8 unit SUBCUT AC [facility] Stop: 07/07/20 18:14 Last Admin: 06/13/20 16:18 Dose: 8 unit Documented by: Lidocaine (Lidocaine 5% (700 Mg) Transdermal Adh..Patch) 3 patch TP DAILY RACIEL Stop: 07/10/20 09:59 Last Admin: 06/13/20 11:30 Dose: 3 patch Documented by: Melatonin (Melatonin 3 Mg Tablet) 3 mg PO QHS [facility] Stop: 07/07/20 21:59 Last Admin: 06/12/20 21:36 Dose: 3 mg Documented by: Nicotine (Nicotine 21 Mg/24 Hr Patch.Td24) 1 each TD DAILY RACIEL Stop: 07/09/20 10:59 Last Admin: 06/13/20 09:16 Dose: 1 each Documented by: Paroxetine HCl (Paroxetine Hcl 20 Mg Tablet) 20 mg PO DAILY RACIEL Stop: 07/08/20 09:59 Last Admin: 06/13/20 09:12 Dose: 20 mg Documented by: Pharmacy Profile Note (Pharmacy Communication Order) 1 each MC QHS RACIEL Stop: 07/09/20 21:59 Last Admin: 06/12/20 21:37 Dose: 1 applic Documented by: Sodium Chloride (Normal Saline Flush 2.5 Ml Disp.Syrin) 2.5 ml IV Q8 RACIEL Stop: 07/07/20 21:59 Last Admin: 06/13/20 15:20 Dose: Not Given Documented by: Sodium Chloride (Normal Saline 10 Ml Sdv (Scheduled)) 10 ml IV Q12 RACIEL Stop: 07/07/20 21:59 Last Admin: 06/13/20 09:18 Dose: Not Given Documented by: Sodium Chloride (Normal Saline 10 Ml Sdv (After Each Use)) 10 ml IV .AFTER EACH USE PRN Stop: 07/07/20 21:59 Last Admin: 06/13/20 09:13 Dose: 10 ml Documented by: Trazodone HCl (Trazodone Hcl 50 Mg Tablet) 150 mg PO QHS RACIEL Stop: 07/07/20 21:59 Last Admin: 06/12/20 21:35 Dose: 150 mg Documented by: - Allergies Allergies/Adverse Reactions: infliximab [From Remicade] Allergy (Severe, Verified 05/19/20 12:43) Anaphylaxis clindamycin [Clindamycin] Allergy (Verified 05/19/20 12:43) sulfamethoxazole [From Bactrim] Allergy (Verified 05/19/20 12:43) trimethoprim [From Bactrim] Allergy (Verified 05/19/20 12:43) codeine [Codeine] Adverse Reaction (Mild, Verified 05/19/20 12:43) NSAIDS (Non-Steroidal Anti-Inflamma Adverse Reaction (Verified 05/19/20 12:43) - Diet/Activity Discharge Activity: Activity As Tolerated Hospital Course Hospital Course: ИВАН MONTELONGO is a 35 year old female with history of IV heroin use who was received this morning as a transfer-back to [facility] from [facility] for continued antibiotic therapy. Patient initially evaluated at [facility] on 05/19/2020 for AMS. She was inevitably found to have MSSA mitral valve endocarditis with septicemia, currently being treated with Nafcillin 2g q4hr as per ID recommendations, with negative blood cultures as of 05/23/2020. On BABAK patient was found to have large mitral valve mass requiring surgery and was thus transferred to [facility] for further treatment and evaluation on 05/29/2020. Pt evaluated at [facility] and is scheduled for CT surgery at [facility] on 06/16/2020, to be transferred back to [facility] on 06/15. [facility] records reviewed in detail and have been scanned into chart. Her hospital course at [facility] complicated by septic emboli to the lung and brain. Patient followed by neuro/neurosurgery at [facility] who request repeat MRI brain w/w/o on 08/11 for comparison. On presentation patient is hemodynamically stable with VSS. Her only complaint is that she is experiencing right hip and right knee pain. Right hip pain is acute 3 days duration described as an ache which she relates to swollen lymph nodes in her groin. The right knee pain has been addressed and evaluated by [facility] currently treating with lidocaine patches and Tylenol. No further complaints or concerns at this time. I have accepted the patient to hospitalist service for continued antibiotic therapy until she is to be transferred back to [facility] on date as stated above. 06/10/20 Care assumed today. Interval history reviewed. patient was seen and examined at bedside. She denies any chest pain, SOB. Complains of right thigh pain and right knee pain, no tenderness or swelling. Afebrile with good appetite. 06/11/20 She was seen and examined at bedside. Doing well overall. Denies any chest pain, SOB. MRI head done today awaiting result. 06/12/20. She was seen and examined at bedside. No new complains. MRI head result reviewed which showed multiple rim-enhancing lesions within the cerebral hemisphere bilaterally similar to previous areas of restricted diffusion cons istent with multifocal septic emboli. Couple of new foci of restricted diffusion in the parietal lobe bilateral without associated enhancement may represent small bland embolic infarcts. She has no new neurologic deficit. Images power shared to [facility]. Physical Exam Vital Signs: Temp Pulse Resp BP Pulse Ox 97.6 F 83 16 107/66 100 06/13/20 12:01 06/13/20 15:35 06/13/20 15:35 06/13/20 15:35 06/13/20 15:35 Intake & Output 06/12/20 06/13/20 06/14/20 06:59 06:59 06:59 Intake Total 2180 380 360 Balance 2180 380 360 Weight 75.4 kg 76.8 kg General appearance: PRESENT: no acute distress, cooperative Head exam: PRESENT: atraumatic, normocephalic Eye exam: PRESENT: EOMI, PERRLA Mouth exam: PRESENT: moist Neck exam: PRESENT: full ROM Respiratory exam: PRESENT: clear to auscultation brandon, symmetrical, unlabored Cardiovascular exam: PRESENT: RRR, +S1, +S2 Pulses: PRESENT: +2 pedal pulses bilateral GI/Abdominal exam: PRESENT: normal bowel sounds Extremities exam: PRESENT: full ROM Musculoskeletal exam: PRESENT: full ROM Neurological exam: PRESENT: alert, awake, oriented to person, oriented to place, oriented to time, oriented to situation Psychiatric exam: PRESENT: normal mood Skin exam: PRESENT: normal color Results Laboratory Results: 06/13/20 05:59 06/13/20 05:59 06/13/20 06/13/20 05:59 05:59 WBC 3.0 L RBC 2.81 L Hgb 8.6 L Hct 25.3 L MCV 90 MCH 30.6 MCHC 34.0 RDW 18.7 H Plt Count 236 Seg Neutrophils % 50.7 Sodium 133.8 L Potassium 4.2 Chloride 99 Carbon Dioxide 31 H Anion Gap 4 L BUN 13 Creatinine 0.66 Est GFR ( Amer) > 60 Glucose 191 H Calcium 9.2 Total Bilirubin 0.9 AST 158 H Alkaline Phosphatase 130 H Total Protein 7.0 Albumin 3.3 L Impressions: Hip/Pelvis X-Ray 06/07/20 00:00 IMPRESSION: No significant osseous findings. Large stool burden. Head MRI 06/11/20 00:00 IMPRESSION: 1. Multiple rim enhancing lesions within the cerebral hemispheres bilaterally, similar which corresponded previous areas of restricted diffusion, consistent with multifocal septic emboli. 2. A couple of new foci of restricted diffusion in the parietal lobes bilaterally without associated enhancement may represent small bland embolic infarcts. 3. No significant mass effect, evidence of acute territorial infarct or intracranial hemorrhage. EVIDENCE OF ACUTE STROKE: NO. Plan Discharge Plan: Transfer back to [facility] for planned surgery Time Spent: Greater than 30 Minutes
[2020-06-13 21:58] VITALS: BP 97/57
== END 2020-06-13 22:00 | disposition short-term general hospital (02) | DRG 288 ==
LOC: 4N 14:05
PROVIDERS: ADMIT Internal Medicine; ATTEND Internal Medicine
DX: I33.0 Acute and subacute infective endocarditis (principal); A41.01 Sepsis due to Methicillin susceptible Staphylococcus aureus; G93.41 Metabolic encephalopathy; R65.20 Severe sepsis without septic shock; I76 Septic arterial embolism; Z20.828 Contact with and (suspected) exposure to other viral communicable diseases; F11.10 Opioid abuse, uncomplicated; K21.9 Gastro-esophageal reflux disease without esophagitis; M79.7 Fibromyalgia; F32.9 Major depressive disorder, single episode, unspecified; D64.9 Anemia, unspecified; F17.210 Nicotine dependence, cigarettes, uncomplicated; E10.65 Type 1 diabetes mellitus with hyperglycemia; F41.9 Anxiety disorder, unspecified; M25.561 Pain in right knee; I95.0 Idiopathic hypotension; Z79.899 Other long term (current) drug therapy; Z79.4 Long term (current) use of insulin; Z88.6 Allergy status to analgesic agent; Z88.3 Allergy status to other anti-infective agents; Z88.8 Allergy status to other drugs, medicaments and biological substances; Z83.6 Family history of other diseases of the respiratory system; Z83.3 Family history of diabetes mellitus; Z80.9 Family history of malignant neoplasm, unspecified
CPT/HCPCS: 36415; 70553; 80048; 80053; 82607; 82728; 82746; 82962; 83540; 83550; 83735; 85025; 85027; 85045; 87635; 93005; 93010; A9576; C9803; J0571; J1642; J1644; J1815; J3490; J7060; J7120; S0032

== ENCOUNTER 2020-07-11 23:48 | Inpatient (IN) | payer MEDICAID ==
[2020-07-12] MEDS ORDERED: TEMAZEPAM 15 MG CAPSULE PO PRN (02:06)
[2020-07-12] MEDS ORDERED: IPRATROPIUM/ALBUTEROL 0.5-2.5 MG/3 ML AMPUL NEB PRN (02:06)
[2020-07-12] MEDS ORDERED: ONDANSETRON HCL INJ/PF 4 MG/2 ML SDV IV PRN (02:06)
[2020-07-12] MEDS ORDERED: ONDANSETRON 4 MG TAB.RAPDIS PO PRN (02:06)
[2020-07-12] MEDS ORDERED: MAGNESIUM HYDROXIDE SUSP 30 ML UDCUP PO PRN (02:06)
[2020-07-12] MEDS ORDERED: PROMETHAZINE HCL INJ 25 MG/1 ML VIAL IV PRN (02:06)
[2020-07-12] MEDS ORDERED: HYDROXYZINE HCL 10 MG TABLET PO PRN (02:10)
[2020-07-12] MEDS ORDERED: BISACODYL 5 MG TABEC PO SCH (02:15)
[2020-07-12] MEDS ORDERED: DEXTROSE 40% GEL 15 GM TUBE PO PRN ×2 (02:17)
[2020-07-12] MEDS ORDERED: GLUCAGON,HUMAN RECOMB 1 MG INJ IM PRN (02:17)
[2020-07-12] MEDS ORDERED: DEXTROSE 50%-WATER 25 GM/50 ML DISP.SYRIN IV PRN ×2 (02:17)
--- NOTE | 2020-07-12 02:48 | PDOC H&P ---
History of Present Illness Admission Date/PCP: 07/11/20 23:48 History of Present Illness: ИВАН MONTELONGO is a 35 year old female past medical history of IV drug abuse, was admitted to [facility] on 05/19/2020, for altered mental status, found to have MSSA bacteremia, and on 2D echo was noted to have endocarditis with large mitral valve requiring surgery and there is was transferred to [facility] on 06/06/2020. At [facility] cardiac surgery was consulted and patient received bovine mitral valve replacement with 27 mm mitral Magna Ease on 06/16/2020, she is transferred back to [facility] on 07/12/2020 to continue her IV antibiotics till 07/28/2019 which will be 6 weeks from the date of valve replacement on 06/16/2020. On presentation to [facility] patient remained hemodynamically stable, asymptomatic except for minor discomfort at the surgical area. Patient denies any fever, chills, nausea, vomiting, diarrhea, constipation, urinary symptoms, weakness, numbness or any focal neurological symptoms. Stating that she is ambulatory, having normal bowel and bladder movements and is p.o. tolerant. Past Medical History Cardiac Medical History: Denies: Coronary Artery Disease, Myocardial Infarction, Hypertension Pulmonary Medical History: Reports: Asthma Denies: Bronchitis, Chronic Obstructive Pulmonary Disease (COPD), Pneumonia Neurological Medical History: Reports: Migraine, Seizures - BLOOD SUGAR GOT TOO LOW Endocrine Medical History: Reports: Diabetes Mellitus Type 1 GI Medical History: Reports: Gastroesophageal Reflux Disease, Ulcerative Colitis Musculoskeltal Medical History: Reports: Fibromyalgia Denies: Arthritis Psychiatric Medical History: Reports: Depression Traumatic Medical History: Reports: Pneumothorax Hematology: Reports: Anemia Denies: Sickle Cell Disease Past Surgical History Past Surgical History: Reports: Section - x1, Tubal Ligation Denies: Pacemaker Social History Smoking Status: Current Every Day Smoker Frequency of Alcohol Use: None Hx Recreational Drug Use: No Drugs: Cocaine, Heroin, Ecstasy, Other Hx Prescription Drug Abuse: Yes - xanax Family History Family History: COPD, DM, Malignancy Parental Family History Reviewed: Yes Children Family History Reviewed: Yes Sibling(s) Family History Reviewed.: Yes Medication/Allergy Home Medications: Buprenorphine HCl 8 mg SL BID 05/19/20 Lidocaine [Lidocaine Pain Relief] 1 patch TOP DAILY 06/07/20 Gabapentin [Neurontin 300 mg Capsule] 300 mg PO Q8 capsule 06/13/20 Heparin Sodium,Porcine [Heparin Inj 5,000 Units/ml 1 ml Vial] 5,000 unit SUBCUT Q8 vial 06/13/20 Nicotine [Nicoderm 21 mg/24 Hr Transderm Patch] 1 each TD DAILY patch.td24 06/13/20 Normal Saline [NaCl 0.9% Inj/Pf 10 ml Sdv] 10 ml IV .AFTER EACH USE PRN vial 06/13/20 Paroxetine HCl [Paxil 20 mg Tablet] 20 mg PO DAILY tablet 06/13/20 Acetaminophen [Tylenol 325 mg Tablet] 500 mg PO Q6HP PRN 07/12/20 Aspirin [Ecotrin 81 mg EC Tablet] 81 mg PO DAILY 07/12/20 Bisacodyl [Dulcolax 5 Mg Tablet] 10 mg PO DAILY 07/12/20 Cyclobenzaprine HCl [Flexeril 10 mg Tablet] 10 mg PO TID 07/12/20 Docusate Sodium [Colace 100 mg Capsule] 100 mg PO BID 07/12/20 Famotidine [Acid Controller] 20 mg PO DAILY 07/12/20 Furosemide [Lasix] 40 mg PO DAILY 07/12/20 Hydroxyzine HCl [Atarax 10 mg Tablet] 25 mg PO Q6 PRN 07/12/20 Insulin Lispro [Humalog Insulin (Lispro) 100 unit/mL] 8 unit SUBCUT AC 07/12/20 Mag Hydrox/Al Hydrox/Simeth [Maalox Plus Susp 30 Udcup] 30 ml PO Q6 PRN 07/12/20 Magnesium Oxide 800 mg PO DAILY 07/12/20 Melatonin [Melatonin 3 mg Tablet] 9 mg PO QHS 07/12/20 NPH, Human Insulin Isophane [Humulin N (NPH) Insulin 100 unit/mL] 10 units SUBCUT Q12 07/12/20 Paroxetine HCl [Paxil 20 mg Tablet] 20 mg PO DAILY 07/12/20 Polyethylene Glycol 3350 [Miralax Powder 17 gm/Packet] 17 g PO DAILY 07/12/20 Trazodone HCl [Desyrel 50 mg Tablet] 50 mg PO QHS 07/12/20 Vancomycin HCl [Vancocin Inj 1000 mg Vial] 1,000 mg IV Q12 07/12/20 Allergies/Adverse Reactions: infliximab [From Remicade] Allergy (Severe, Verified 05/19/20 12:43) Anaphylaxis clindamycin [Clindamycin] Allergy (Verified 05/19/20 12:43) sulfamethoxazole [From Bactrim] Allergy (Verified 05/19/20 12:43) trimethoprim [From Bactrim] Allergy (Verified 05/19/20 12:43) codeine [Codeine] Adverse Reaction (Mild, Verified 05/19/20 12:43) NSAIDS (Non-Steroidal Anti-Inflamma Adverse Reaction (Verified 05/19/20 12:43) Review of Systems Review of Systems: as per hpi Physical Exam General appearance: PRESENT: no acute distress, well-developed, well-nourished Head exam: PRESENT: atraumatic, normocephalic Respiratory exam: PRESENT: clear to auscultation brandon. ABSENT: rales, rhonchi, wheezes Cardiovascular exam: PRESENT: RRR, other - Surgical wound clear, no sign of infection, no tenderness, no erythema.. ABSENT: diastolic murmur, rubs, systolic murmur GI/Abdominal exam: PRESENT: normal bowel sounds, soft. ABSENT: distended, guarding, mass, organolmegaly, rebound, tenderness Neurological exam: PRESENT: alert, awake, oriented to person, oriented to place, oriented to time, oriented to situation, CN II-XII grossly intact. ABSENT: motor sensory deficit Assessment and Plan - Diagnosis (1) Endocarditis due to methicillin susceptible Staphylococcus aureus (MSSA) Is this a current diagnosis for this admission?: Yes Plan: Status post mitral valve replacement on 06/16/2020 at [facility] medical. History of longstanding history IV drug use. As per chart review and previous physician's note: 05/19 admitted [facility] for AMS 05/20 TTE showed normal cardiac function, negative for vegetations, mild pulmonary hypertension 05/21 + BC MSSA x2 bottles 05/23 Negative BC on Nafcillin 2g q4hr 05/29 BABAK 2.8 x 1 cm posterior leaflet mitral valve vegetation 05/29 transferred to [facility] Repeat TTE at [facility] large mobile vegetation measuring 3.2x1.4cm with trivial MR. CT surgery scheduled at [facility] for 06/16, transfer back to [facility] 06/15 prior to surgery with Dr. Martinez. Status post bioprosthetic mitral valve replacement with 27 mm magna ease on 06/16/2020. Continue vancomycin at 1000 mg IV twice daily 6 weeks from the day of surgery which was 06/16/2020. Last day of antibiotic therapy 07/28/2019. (2) Septic embolism Is this a current diagnosis for this admission?: Yes Plan: Currently asymptomatic. 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 Patient is stating that she is currently asymptomatic, denies any focal neurological symptoms. Alert and oriented x4, p.o. tolerant, ambulatory having normal bowel bladder movement. Benign neurological examination. As per MRI for on 06/11/2020 Repeat brain MRI w/w/o contrast on 06/11 multiple rim-enhancing lesions within the cerebral hemispheres bilaterally similar which corresponded to previous areas of restricted diffusion, consistent with multifocal septic emboli. A couple of new foci of restricted diffusion in the parietal lobe bilaterally without associated enhancement may represent small bland embolic infarcts. Continue current treatment for endocarditis. Continue antiplatelets. Monitor vitals. Optimize diabetes control. 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 Hypoglycemia protocol. Premeal insulin. Basal insulin. Sliding scale insulin. (4) Heroin abuse Is this a current diagnosis for this admission?: Yes Plan: Continue Subutex 8 mg twice daily. - Time Time Spent with patient: 35 or more minutes Anticipated Discharge Disposition: Home, Self Care Anticipated Discharge Timeframe: 07/28/2019
[2020-07-12] MEDS ORDERED: VANCOMYCIN HCL INJ 1000 MG VIAL ONE (04:58)
[2020-07-12] MEDS: GABAPENTIN 300 MG CAPSULE PO SCH ×3 (06:37→21:08)
[2020-07-12] MEDS: CYCLOBENZAPRINE HCL 10 MG TABLET PO SCH ×3 (06:38→21:08)
[2020-07-12] MEDS: VANCOMYCIN HCL 1,000 MG in DEXTROSE 5%-WATER 250 ML IV SCH ×2 (06:40→17:59)
[2020-07-12] MEDS: INSULIN LISPRO 100 UNIT/ML 3 ML VIAL SUBCUT SCH ×6 (07:50→21:09)
[2020-07-12] MEDS ORDERED: METFORMIN HCL 500 MG TABLET PO SCH (08:00)
[2020-07-12] MEDS ORDERED: SITAGLIPTIN PHOSPHATE 50 MG TABLET PO SCH (08:00)
[2020-07-12] MEDS: INSULIN NPH (ISOPHANE), HUMAN 100 UNIT/ML 3 ML SUBCUT SCH ×2 (08:26→16:53)
[2020-07-12] MEDS ORDERED: VANCOMYCIN HCL INJ 1000 MG VIAL IV SCH (10:00)
[2020-07-12] MEDS: NICOTINE 21 MG/24 HR PATCH.TD24 TD SCH (11:40)
[2020-07-12] MEDS: DOCUSATE SODIUM 100 MG CAPSULE PO SCH (11:41)
[2020-07-12] MEDS: BUPRENORPHINE HCL 2 MG SUBLINGUAL TABLET SL SCH ×2 (11:41→21:08)
[2020-07-12] MEDS: PAROXETINE HCL 20 MG TABLET PO SCH (11:42)
[2020-07-12] MEDS: ASPIRIN 81 MG TABLET, ENT COATED PO SCH (11:42)
[2020-07-12] MEDS: MAGNESIUM OXIDE 400 MG TABLET PO SCH (11:42)
[2020-07-12] MEDS: FAMOTIDINE 20 MG TABLET PO SCH ×2 (11:42→21:08)
[2020-07-12] MEDS: FUROSEMIDE 40 MG TABLET PO SCH (11:43)
[2020-07-12] MEDS: ENOXAPARIN SODIUM INJ 40 MG/0.4 ML DISP.SYRIN SUBCUT SCH (11:44)
--- NOTE | 2020-07-12 12:46 | PDOC PROGRESS REPORT ---
Subjective Date:: 07/12/20 Subjective:: Patient is resting comfortably. She is sitting at the side of the bed eating [facility]. She has no complaints this morning. She did not get much sleep last night because of the late transport to [place]. Reason For Visit: ENDOCARDITIS Physical Exam Vital Signs: Temp Pulse Resp BP Pulse Ox 98.6 F 83 18 109/63 88 L 07/12/20 10:49 07/12/20 10:49 07/12/20 10:49 07/12/20 10:49 07/12/20 10:49 Intake & Output 07/11/20 07/12/20 07/13/20 06:59 06:59 06:59 Intake Total 630 Balance 630 General appearance: PRESENT: no acute distress, cooperative, well-developed, well-nourished Head exam: PRESENT: atraumatic, normocephalic Ear exam: PRESENT: normal external ear exam. ABSENT: bleeding, drainage Mouth exam: PRESENT: moist, tongue midline Respiratory exam: PRESENT: clear to auscultation brandon, symmetrical, unlabored. ABSENT: prolonged expiratory phas, rales, rhonchi, tachypnea, wheezes Cardiovascular exam: PRESENT: RRR, +S1, +S2. ABSENT: bradycardia, diastolic murmur, irregular rhythm, systolic murmur, tachycardia GI/Abdominal exam: PRESENT: normal bowel sounds, soft. ABSENT: distended, tenderness Rectal exam: PRESENT: deferred Gentrourinary exam: ABSENT: indwelling catheter Extremities exam: ABSENT: pedal edema Musculoskeletal exam: PRESENT: ambulatory, normal inspection. ABSENT: deformity, dislocation Neurological exam: PRESENT: alert, awake, oriented to person, oriented to place, oriented to time, oriented to situation, CN II-XII grossly intact. ABSENT: altered Psychiatric exam: PRESENT: appropriate affect, normal mood. ABSENT: agitated, anxious Focused psych exam: ABSENT: delusional, paranoid, restlessness Skin exam: PRESENT: dry, normal color, warm. 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 History of longstanding history IV drug use. As per chart review and previous physician's note: 05/19 admitted [facility] for AMS 05/20 TTE showed normal cardiac function, negative for vegetations, mild pulmonary hypertension 05/21 + BC MSSA x2 bottles 05/23 Negative BC on Nafcillin 2g q4hr 05/29 BABAK 2.8 x 1 cm posterior leaflet mitral valve vegetation 05/29 transferred to [facility] Repeat TTE at [facility] large mobile vegetation measuring 3.2x1.4cm with trivial MR. CT surgery scheduled at [facility] for 06/16, transfer back to [facility] 06/15 prior to surgery with Dr. Martinez. Status post bioprosthetic mitral valve replacement with 27 mm magna ease on 06/16/2020. Continue vancomycin at 1000 mg IV twice daily 6 weeks from the day of surgery which was 06/16/2020. Last day of antibiotic therapy 07/28/2019. (2) Septic embolism Is this a current diagnosis for this admission?: Yes Plan: Currently asymptomatic. 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 Patient is stating that she is currently asymptomatic, denies any focal neurological symptoms. Alert and oriented x4, p.o. tolerant, ambulatory having normal bowel bladder movement. Benign neurological examination. As per MRI for on 06/11/2020 Repeat brain MRI w/w/o contrast on 06/11 multiple rim-enhancing lesions within the cerebral hemispheres bilaterally similar which corresponded to previous areas of restricted diffusion, consistent with multifocal septic emboli. A couple of new foci of restricted diffusion in the parietal lobe bilaterally without associated enhancement may represent small bland embolic infarcts. Continue current treatment for endocarditis. Continue antiplatelets. Monitor vitals. Optimize diabetes control. (3) Diabetes Qualifiers: Diabetes mellitus type: type 2 Diabetes mellitus shelter insulin use: unspecified shelter insulin use status Diabetes mellitus complication status: with unspecified complications Is this a current diagnosis for this admission?: Yes Plan: Diabetic diet. Hypoglycemia protocol. Premeal insulin. Basal insulin. Sliding scale insulin. (4) Heroin abuse Is this a current diagnosis for this admission?: Yes Plan: Continue Subutex 8 mg twice daily. 07/12/2020 Continue vancomycin with pharmacy dosing. From my discussion with the PA at [facility] the desired vancomycin level is 15-20 (closer to 20). As noted above she underwent mitral valve replacement. She is doing well. Vancomycin therapy through January 25, 2021 Septic emboli-the patient had multiple septic emboli to the brain from her mitral valve. She is doing well and does not exhibit any neurologic deficits at this time. Continue vancomycin as above. Diabetes mellitus-currently on diabetic diet. Accu-Cheks were high today. She should start on her regimen of before meal Humalog with twice daily NPH. We will continue to monitor Accu-Cheks and sliding scale requirements and adjust insulin accordingly. Heroin abuse-continue Subutex 8 mg twice a day. - Time Time Spent with patient: Less than 15 minutes Medications reviewed and adjusted accordingly: Yes Anticipated Discharge Disposition: Home, Self Care Anticipated Discharge Timeframe: 07/29/2020
[2020-07-12] MEDS: LIDOCAINE 5% (700 MG) TRANSDERMAL ADH..PATCH TOP SCH (14:43)
[2020-07-12] MEDS: TRAZODONE HCL 50 MG TABLET PO SCH (21:08)
[2020-07-12] MEDS: MELATONIN 3 MG TABLET PO SCH (21:10)
[2020-07-13] MEDS: CYCLOBENZAPRINE HCL 10 MG TABLET PO SCH ×3 (05:41→21:35)
[2020-07-13] MEDS: GABAPENTIN 300 MG CAPSULE PO SCH ×3 (05:41→21:30)
[2020-07-13] MEDS: VANCOMYCIN HCL 1,000 MG in DEXTROSE 5%-WATER 250 ML IV SCH ×2 (05:41→17:07)
[2020-07-13 06:06] LABS: ABSOLUTE BASOPHILS # (AUTO) 0.1 10^3/uL (0.0-0.2); ABSOLUTE EOSINOPHILS # (AUTO) 0.4 10^3/uL (0.0-0.6); ABSOLUTE LYMPHOCYTES (AUTO) 1.6 10^3/uL (0.5-4.7); ABSOLUTE MONOCYTES (AUTO) 0.7 10^3/uL (0.1-1.4); ABSOLUTE NEUT (AUTO) 4.1 10^3/uL (1.7-8.2); BASOPHILS % (AUTO) 1.4 % (0-2); EOSINOPHILS % (AUTO) 5.5 % (0-6); HEMATOCRIT 25.5 % (36.0-47.0); HEMOGLOBIN 8.7 g/dL (12.0-15.5); LYMPHOCYTES % (AUTO) 23.3 % (13-45); MEAN CORPUSCULAR HEMOGLOBIN 29.5 pg (27.0-33.4); MEAN CORPUSCULAR HGB CONC 34.1 g/dL (32.0-36.0); MEAN CORPUSCULAR VOLUME 87 fl (80-97); MONOCYTES % (AUTO) 9.7 % (3-13); PLATELET COUNT 362 10^3/uL (150-450); RED BLOOD COUNT 2.94 10^6/uL (3.72-5.28); RED CELL DISTRIBUTION WIDTH 16.8 % (11.5-14.0); SEGMENTED NEUTROPHILS % (AUTO) 60.1 % (42-78); TOTAL CELLS COUNTED % (AUTO) 100 %; WHITE BLOOD COUNT 6.8 10^3/uL (4.0-10.5)
[2020-07-13 06:27] LABS: ALBUMIN 3.4 g/dL (3.5-5.0); ALKALINE PHOSPHATASE 119 U/L (38-126); ANION GAP 7 (5-19); ASPARTATE AMINO TRANSFERASE 20 U/L (14-36); BILIRUBIN,DIRECT 0.4 mg/dL (0.0-0.4); BILIRUBIN,TOTAL 0.5 mg/dL (0.2-1.3); BLOOD UREA NITROGEN 16 mg/dL (7-20); CALCIUM 9.4 mg/dL (8.4-10.2); CARBON DIOXIDE 34 mmol/L (22-30); CHLORIDE 94 mmol/L (98-107); GLUCOSE 213 mg/dL (75-110); POTASSIUM 4.3 mmol/L (3.6-5.0); TOTAL PROTEIN 6.9 g/dL (6.3-8.2)
[2020-07-13] MEDS: INSULIN LISPRO 100 UNIT/ML 3 ML VIAL SUBCUT SCH ×8 (07:42→23:39)
[2020-07-13] MEDS: INSULIN NPH (ISOPHANE), HUMAN 100 UNIT/ML 3 ML SUBCUT SCH ×2 (07:49→17:09)
--- NOTE | 2020-07-13 12:09 | PDOC PROGRESS REPORT ---
Subjective Date:: 07/13/20 Subjective:: The patient is sleeping but awakens easily. She does not report any current med ical issues. Reason For Visit: ENDOCARDITIS Physical Exam Vital Signs: Temp Pulse Resp BP Pulse Ox 98.5 F 101 H 16 117/68 96 07/13/20 11:28 07/13/20 11:41 07/13/20 11:41 07/13/20 11:28 07/13/20 11:41 Intake & Output 07/12/20 07/13/20 07/14/20 06:59 06:59 06:59 Intake Total 880 250 Balance 880 250 Weight 88.5 kg General appearance: PRESENT: no acute distress, cooperative, well-developed Head exam: PRESENT: atraumatic, normocephalic Ear exam: PRESENT: normal external ear exam. ABSENT: bleeding, drainage Mouth exam: PRESENT: moist, tongue midline Respiratory exam: PRESENT: clear to auscultation brandon, symmetrical, unlabored. ABSENT: rales, rhonchi, tachypnea, wheezes Cardiovascular exam: PRESENT: RRR, +S1, +S2. ABSENT: bradycardia, diastolic murmur, irregular rhythm, systolic murmur, tachycardia GI/Abdominal exam: PRESENT: normal bowel sounds, soft. ABSENT: tenderness Rectal exam: PRESENT: deferred Gentrourinary exam: ABSENT: indwelling catheter Extremities exam: ABSENT: pedal edema Musculoskeletal exam: PRESENT: ambulatory, normal inspection. ABSENT: deformity, dislocation Neurological exam: PRESENT: awake, oriented to person, oriented to place, oriented to time, oriented to situation, CN II-XII grossly intact. ABSENT: alert - Somewhat sleepy as she just woke up, altered Psychiatric exam: PRESENT: appropriate affect. ABSENT: agitated, anxious Focused psych exam: ABSENT: delusional, paranoid, restlessness Skin exam: PRESENT: dry, pallor, warm. ABSENT: rash Results Laboratory Results: 07/13/20 05:54 07/13/20 05:54 07/13/20 07/13/20 07/13/20 05:54 05:54 05:54 WBC 6.8 RBC 2.94 L Hgb 8.7 L Hct 25.5 L MCV 87 MCH 29.5 MCHC 34.1 RDW 16.8 H Plt Count 362 Seg Neutrophils % 60.1 Sodium 135.1 L Potassium 4.3 Chloride 94 L Carbon Dioxide 34 H Anion Gap 7 BUN 16 Creatinine 0.88 Est GFR ( Amer) > 60 Glucose 213 H Calcium 9.4 Magnesium 1.9 Total Bilirubin 0.5 AST 20 Alkaline Phosphatase 119 C-Reactive Protein 37.4 H Total Protein 6.9 Albumin 3.4 L Assessment and Plan - Diagnosis (1) Endocarditis due to methicillin susceptible Staphylococcus aureus (MSSA) Is this a current diagnosis for this admission?: Yes (2) Septic embolism Is this a current diagnosis for this admission?: Yes (3) Hepatitis C antibody positive in blood Is this a current diagnosis for this admission?: Yes (4) Heroin abuse Is this a current diagnosis for this admission?: Yes (5) Diabetes Qualifiers: Diabetes mellitus type: type 2 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 History of longstanding history IV drug use. As per chart review and previous physician's note: 05/19 admitted [facility] for AMS 05/20 TTE showed normal cardiac function, negative for vegetations, mild pulmonary hypertension 05/21 + BC MSSA x2 bottles 05/23 Negative BC on Nafcillin 2g q4hr 05/29 BABAK 2.8 x 1 cm posterior leaflet mitral valve vegetation 05/29 transferred to [facility] Repeat TTE at [facility] large mobile vegetation measuring 3.2x1.4cm with trivial MR. CT surgery scheduled at [facility] for 06/16, transfer back to [facility] 06/15 prior to surgery with Dr. Martinez. Status post bioprosthetic mitral valve replacement with 27 mm magna ease on 06/16/2020. Continue vancomycin at 1000 mg IV twice daily 6 weeks from the day of surgery which was 06/16/2020. Last day of antibiotic therapy 07/28/2019. (2) Septic embolism Is this a current diagnosis for this admission?: Yes Plan: Currently asymptomatic. 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 Patient is stating that she is currently asymptomatic, denies any focal n eurological symptoms. Alert and oriented x4, p.o. tolerant, ambulatory having normal bowel bladder m ovement. Benign neurological examination. As per MRI for on 06/11/2020 Repeat brain MRI w/w/o contrast on 06/11 multiple rim-enhancing lesions within the cerebral hemispheres bilaterally similar which corresponded to previous areas of restricted diffusion, consistent with multifocal septic emboli. A couple of new foci of restricted diffusion in the parietal lobe bilaterally without associated enhancement may represent small bland embolic infarcts. Continue current treatment for endocarditis. Continue antiplatelets. Monitor vitals. Optimize diabetes control. (3) Diabetes Qualifiers: Diabetes mellitus type: type 2 Diabetes mellitus alf insulin use: unspecified alf insulin use status Diabetes mellitus complication status: with unspecified complications Is this a current diagnosis for this admission?: Yes Plan: Diabetic diet. Hypoglycemia protocol. Premeal insulin. Basal insulin. Sliding scale insulin. (4) Heroin abuse Is this a current diagnosis for this admission?: Yes Plan: Continue Subutex 8 mg twice daily. (5) Normochromic Normocytic anemia 07/12/2020 Continue vancomycin with pharmacy dosing. From my discussion with the PA at [facility] the desired vancomycin level is 15-20 (closer to 20). As noted above she u nderwent mitral valve replacement. She is doing well. Vancomycin therapy through January 25, 2021 Septic emboli-the patient had multiple septic emboli to the brain from her mitral valve. She is doing well and does not exhibit any neurologic deficits at this time. Continue vancomycin as above. Diabetes mellitus-currently on diabetic diet. Accu-Cheks were high today. She should start on her regimen of before meal Humalog with twice daily NPH. We will continue to monitor Accu-Cheks and sliding scale requirements and adjust insulin accordingly. Heroin abuse-continue Subutex 8 mg twice a day. 07/13/2020 Endocarditis-status post valve replacement. Vancomycin through January 25. Target trough level is 20. Septic emboli-brain lesions appear to have resolved. No gross neurologic deficits noted. Diabetes mellitus-still with erratic Accu-Cheks. Will look for inconsistency and adjust medication regimen accordingly History of heroin abuse-continue Subutex Normochromic normocytic anemia-most likely due to the complex endocarditis. Monitor hemoglobin. Will discuss iron supplements. - Time Time Spent with patient: Less than 15 minutes Medications reviewed and adjusted accordingly: Yes Anticipated Discharge Disposition: Home, Self Care Anticipated Discharge Timeframe: 07/29/2020
[2020-07-13] MEDS: FAMOTIDINE 20 MG TABLET PO SCH ×2 (12:11→21:30)
[2020-07-13] MEDS: FUROSEMIDE 40 MG TABLET PO SCH (12:12)
[2020-07-13] MEDS: DOCUSATE SODIUM 100 MG CAPSULE PO SCH (12:12)
[2020-07-13] MEDS: PAROXETINE HCL 20 MG TABLET PO SCH (12:12)
[2020-07-13] MEDS: MAGNESIUM OXIDE 400 MG TABLET PO SCH (12:12)
[2020-07-13] MEDS: ASPIRIN 81 MG TABLET, ENT COATED PO SCH (12:12)
[2020-07-13] MEDS: NICOTINE 21 MG/24 HR PATCH.TD24 TD SCH (12:13)
[2020-07-13] MEDS: BUPRENORPHINE HCL 2 MG SUBLINGUAL TABLET SL SCH ×2 (12:13→21:30)
[2020-07-13] MEDS: POLYETHYLENE GLYCOL 3350 POWDER 17 GM/1 PACKET PO SCH (12:14)
[2020-07-13] MEDS: ENOXAPARIN SODIUM INJ 40 MG/0.4 ML DISP.SYRIN SUBCUT SCH (12:14)
[2020-07-13] MEDS: LIDOCAINE 5% (700 MG) TRANSDERMAL ADH..PATCH TOP SCH (12:24)
[2020-07-13] MEDS: MELATONIN 3 MG TABLET PO SCH (21:29)
[2020-07-13] MEDS: TRAZODONE HCL 50 MG TABLET PO SCH (21:30)
[2020-07-13] MEDS: NORMAL SALINE 10 ML SDV (SCHEDULED) IV SCH (21:34)
[2020-07-14] MEDS: GABAPENTIN 300 MG CAPSULE PO SCH (06:42)
[2020-07-14] MEDS: CYCLOBENZAPRINE HCL 10 MG TABLET PO SCH ×3 (06:42→21:14)
[2020-07-14] MEDS: VANCOMYCIN HCL 1,000 MG in DEXTROSE 5%-WATER 250 ML IV SCH ×2 (06:43→17:07)
[2020-07-14] MEDS: INSULIN LISPRO 100 UNIT/ML 3 ML VIAL SUBCUT SCH ×7 (07:36→21:21)
[2020-07-14] MEDS: INSULIN NPH (ISOPHANE), HUMAN 100 UNIT/ML 3 ML SUBCUT SCH ×2 (07:37→15:31)
[2020-07-14] MEDS: BUPRENORPHINE HCL 2 MG SUBLINGUAL TABLET SL SCH ×2 (09:52→21:14)
[2020-07-14] MEDS: FUROSEMIDE 40 MG TABLET PO SCH (09:52)
[2020-07-14] MEDS: DOCUSATE SODIUM 100 MG CAPSULE PO SCH (09:52)
[2020-07-14] MEDS: MAGNESIUM OXIDE 400 MG TABLET PO SCH (09:52)
[2020-07-14] MEDS: PAROXETINE HCL 20 MG TABLET PO SCH (09:53)
[2020-07-14] MEDS: NORMAL SALINE 10 ML SDV (SCHEDULED) IV SCH ×2 (09:53→21:13)
[2020-07-14] MEDS: POLYETHYLENE GLYCOL 3350 POWDER 17 GM/1 PACKET PO SCH (09:53)
[2020-07-14] MEDS: FAMOTIDINE 20 MG TABLET PO SCH ×2 (09:53→21:14)
[2020-07-14] MEDS: NICOTINE 21 MG/24 HR PATCH.TD24 TD SCH (09:53)
[2020-07-14] MEDS: ENOXAPARIN SODIUM INJ 40 MG/0.4 ML DISP.SYRIN SUBCUT SCH (09:54)
[2020-07-14] MEDS: LIDOCAINE 5% (700 MG) TRANSDERMAL ADH..PATCH TOP SCH (09:54)
[2020-07-14] MEDS: ASPIRIN 81 MG TABLET, ENT COATED PO SCH (09:54)
[2020-07-14] MEDS: SPIRONOLACTONE 25 MG TABLET PO SCH (11:48)
--- NOTE | 2020-07-14 12:33 | RADIOLOGY REPORT (SQ) ---
EXAM DESCRIPTION: U/S ABDOMEN LIMITED W/O DOP IMAGES COMPLETED DATE/TIME: 07/14/2020 12:23 pm REASON FOR STUDY: abd distension/discomfort COMPARISON: None. TECHNIQUE: Dynamic and static grayscale images acquired of the abdomen and recorded on PACS. Additio nal selected color Doppler and spectral images recorded. LIMITATIONS: None. FINDINGS: PANCREAS: Poorly seen. No obvious mass. LIVER: Hepatomegaly. No mass. LIVER VASCULATURE: Normal directional flow of the main portal vein and hepatic veins. GALLBLADDER: Contracted. No obvious stones. ULTRASOUND-DETECTED ZHANG'S SIGN: Negative. INTRAHEPATIC DUCTS AND COMMON DUCT: CBD and intrahepatic ducts normal caliber. No filling defects. AORTA: No aneurysm. RIGHT KIDNEY: Normal size, 12 cm. Normal echogenicity. No solid or suspicious masses. No hydronephr osis. No calcifications. PERITONEAL AND RIGHT PLEURAL SPACE: Right pleural effusion. OTHER: No other significant findings. IMPRESSION: Hepatomegaly. Contracted gallbladder as described. Right pleural effusion. TECHNICAL DOCUMENTATION: JOB ID: [id number] 2010 [employer]- All Rights Reserved Reading location - IP/workstation name: [email or web address]
[2020-07-14] MEDS: GABAPENTIN 400 MG CAPSULE PO SCH ×2 (13:29→21:14)
[2020-07-14] MEDS ORDERED: ONDANSETRON HCL INJ/PF 4 MG/2 ML SDV IV PRN (14:30)
[2020-07-14] MEDS ORDERED: PROMETHAZINE HCL INJ 25 MG/1 ML VIAL IV PRN (14:30)
--- NOTE | 2020-07-14 17:10 | PDOC PROGRESS REPORT ---
Subjective Date:: 07/14/20 Subjective:: ИВАН MONTELONGO is a 35 year old female past medical history of IV drug abuse, was admitted to [facility] on 05/19/2020, for altered mental status, found to have MSSA bacteremia, and on 2D echo was noted to have endocarditis with large mitral valve requiring surgery and there is was transferred to [facility] on 06/06/2020. At [facility] cardiac surgery was consulted and patient received bovine mitral valve replacement with 27 mm mitral Magna Ease on 06/16/2020, she is transferred back to [facility] on 07/12/2020 to continue her IV antibiotics till 07/28/2019 which will be 6 weeks from the date of valve replacement on 06/16/2020. Patient was seen on morning rounds. She is found resting in bed, comfortably, on room air. She reports that she is feeling well today. She does complain of some abdominal distention and mild discomfort. She denies difficulty with bowel movements or urinary retention. Abdomen is nontender on palpation. She further denies fever, chills, chest pain, palpitations, dyspnea, orthopnea, nausea, vomiting, early satiety, diarrhea and constipation. She has no other questions or concerns at this time. No concerns per nursing. Reason For Visit: ENDOCARDITIS Physical Exam Vital Signs: Temp Pulse Resp BP Pulse Ox 98.6 F 94 18 113/68 97 07/14/20 08:03 07/14/20 14:00 07/14/20 07:21 07/14/20 07:21 07/14/20 07:21 Intake & Output 07/13/20 07/14/20 07/15/20 06:59 06:59 06:59 Intake Total 880 2080 370 Balance 880 2080 370 Weight 88.5 kg 89.3 kg General appearance: PRESENT: no acute distress, cooperative, well-developed, well-nourished - overweight Head exam: PRESENT: atraumatic, normocephalic Eye exam: PRESENT: conjunctiva pink, EOMI, PERRLA. ABSENT: scleral icterus Mouth exam: PRESENT: moist, tongue midline Respiratory exam: PRESENT: clear to auscultation brandon, symmetrical, unlabored, other - room air. ABSENT: rales, rhonchi, wheezes Cardiovascular exam: PRESENT: RRR, +S1, +S2. ABSENT: diastolic murmur, rubs, systolic murmur Pulses: PRESENT: normal dorsalis pedis pul Vascular exam: PRESENT: normal capillary refill GI/Abdominal exam: PRESENT: distended, normal bowel sounds, soft. ABSENT: guarding, mass, organolmegaly, rebound, tenderness Rectal exam: PRESENT: deferred Extremities exam: PRESENT: full ROM. ABSENT: calf tenderness, clubbing, pedal edema, +1 edema Neurological exam: PRESENT: alert, awake, oriented to person, oriented to place, oriented to time, oriented to situation, CN II-XII grossly intact. ABSENT: motor sensory deficit Psychiatric exam: PRESENT: appropriate affect, normal mood. ABSENT: homicidal ideation, suicidal ideation Skin exam: PRESENT: dry, intact, warm. ABSENT: cyanosis, rash Results Laboratory Results: 07/13/20 05:54 07/13/20 05:54 Impressions: Abdomen Ultrasound 07/14/20 00:00 IMPRESSION: Hepatomegaly. Contracted gallbladder as described. Right pleural effusion. Assessment and Plan - Diagnosis (1) Endocarditis due to methicillin susceptible Staphylococcus aureus (MSSA) Is this a current diagnosis for this admission?: Yes Plan: Status post mitral valve replacement on 06/16/2020 at [facility] medical. History of longstanding history IV drug use. 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 CT surgery scheduled at [facility] for 06/16, transfer back to [facility] 06/15 prior to surgery with Dr. Martinez. Status post bioprosthetic mitral valve replacement with 27 mm magna ease on 06/16/2020. Continue vancomycin at 1000 mg IV twice daily 6 weeks from the day of surgery which was 06/16/2020. Last day of antibiotic therapy 07/28/2019. 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 Hypoglycemia protocol. Continue home dose Basal and Premeal insulin. Sliding scale insulin. (3) Hepatitis C antibody positive in blood Is this a current diagnosis for this admission?: Yes Plan: RUQ today for abd distention. Noted to have hepatomegaly and a right-sided pleural effusion. No comment to ascites. Continue furosemide and spironolactone. Increase spironolactone dose today for increased diuresis. Monitor output and electrolytes closely. Outpatient follow-up with GI and/or ID for treatment of hepatitis C. (4) Heroin abuse Is this a current diagnosis for this admission?: Yes Plan: Continue Subutex 8 mg twice daily. Outpatient follow up with [facility] the morning following discharge for continued management of substance abuse. (5) Normocytic normochromic anemia Is this a current diagnosis for this admission?: Yes Plan: Hgb stable. Multivitamin w. iron supplementation. (6) Septic embolism Is this a current diagnosis for this admission?: Yes Plan: Currently asymptomatic. 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 Patient is stating that she is currently asymptomatic, denies any focal ne urological symptoms. Alert and oriented x4, p.o. tolerant, ambulatory having normal bowel bladder mo vement. Benign neurological examination. As per MRI for on 06/11/2020 Repeat brain MRI w/w/o contrast on 06/11 multiple rim-enhancing lesions within the cerebral hemispheres bilaterally similar which corresponded to previous areas of restricted diffusion, consistent with multifocal septic emboli. A couple of new foci of restricted diffusion in the parietal lobe bilaterally without associated enhancement may represent small bland embolic infarcts. Continue current treatment for endocarditis. Continue antiplatelets. Optimize diabetes control. - Time Time Spent with patient: 25-34 minutes Medications reviewed and adjusted accordingly: Yes Anticipated Discharge Disposition: Home, Self Care Anticipated Discharge Timeframe:
[2020-07-14] MEDS: ONDANSETRON 4 MG TAB.RAPDIS PO PRN (18:31)
[2020-07-14] MEDS: TRAZODONE HCL 50 MG TABLET PO SCH (21:13)
[2020-07-14] MEDS: MELATONIN 3 MG TABLET PO SCH (21:14)
[2020-07-14] MEDS: PHARMACY COMMUNICATION ORDER MC SCH (21:23)
[2020-07-15] MEDS: GABAPENTIN 400 MG CAPSULE PO SCH ×3 (05:28→21:24)
[2020-07-15] MEDS: VANCOMYCIN HCL 1,000 MG in DEXTROSE 5%-WATER 250 ML IV SCH ×2 (05:28→17:16)
[2020-07-15] MEDS: CYCLOBENZAPRINE HCL 10 MG TABLET PO SCH ×3 (05:28→21:24)
[2020-07-15 06:36] LABS: HEMATOCRIT 27.2 % (36.0-47.0); HEMOGLOBIN 9.1 g/dL (12.0-15.5); MEAN CORPUSCULAR HEMOGLOBIN 28.8 pg (27.0-33.4); MEAN CORPUSCULAR HGB CONC 33.7 g/dL (32.0-36.0); MEAN CORPUSCULAR VOLUME 86 fl (80-97); PLATELET COUNT 421 10^3/uL (150-450); RED BLOOD COUNT 3.18 10^6/uL (3.72-5.28); RED CELL DISTRIBUTION WIDTH 16.8 % (11.5-14.0); WHITE BLOOD COUNT 7.8 10^3/uL (4.0-10.5)
[2020-07-15 06:58] LABS: ALBUMIN 3.8 g/dL (3.5-5.0); ALKALINE PHOSPHATASE 115 U/L (38-126); ANION GAP 9 (5-19); ASPARTATE AMINO TRANSFERASE 18 U/L (14-36); BILIRUBIN,DIRECT 0.3 mg/dL (0.0-0.4); BILIRUBIN,TOTAL 0.5 mg/dL (0.2-1.3); BLOOD UREA NITROGEN 15 mg/dL (7-20); CALCIUM 9.8 mg/dL (8.4-10.2); CARBON DIOXIDE 34 mmol/L (22-30); CHLORIDE 93 mmol/L (98-107); GLUCOSE 157 mg/dL (75-110); POTASSIUM 4.8 mmol/L (3.6-5.0); TOTAL PROTEIN 7.8 g/dL (6.3-8.2)
[2020-07-15] MEDS: INSULIN LISPRO 100 UNIT/ML 3 ML VIAL SUBCUT SCH ×8 (07:18→21:32)
[2020-07-15] MEDS: INSULIN NPH (ISOPHANE), HUMAN 100 UNIT/ML 3 ML SUBCUT SCH ×2 (07:19→16:04)
[2020-07-15] MEDS: DOCUSATE SODIUM 100 MG CAPSULE PO SCH (09:49)
[2020-07-15] MEDS: FAMOTIDINE 20 MG TABLET PO SCH ×2 (09:49→21:24)
[2020-07-15] MEDS: BUPRENORPHINE HCL 2 MG SUBLINGUAL TABLET SL SCH ×2 (09:49→21:24)
[2020-07-15] MEDS: ASPIRIN 81 MG TABLET, ENT COATED PO SCH (09:49)
[2020-07-15] MEDS: SPIRONOLACTONE 25 MG TABLET PO SCH (09:49)
[2020-07-15] MEDS: PAROXETINE HCL 20 MG TABLET PO SCH (09:49)
[2020-07-15] MEDS: MAGNESIUM OXIDE 400 MG TABLET PO SCH (09:49)
[2020-07-15] MEDS: NORMAL SALINE 10 ML SDV (SCHEDULED) IV SCH ×2 (09:50→21:25)
[2020-07-15] MEDS: ENOXAPARIN SODIUM INJ 40 MG/0.4 ML DISP.SYRIN SUBCUT SCH (09:50)
[2020-07-15] MEDS: FUROSEMIDE 40 MG TABLET PO SCH (09:50)
[2020-07-15] MEDS: LIDOCAINE 5% (700 MG) TRANSDERMAL ADH..PATCH TOP SCH (09:50)
[2020-07-15] MEDS: NICOTINE 21 MG/24 HR PATCH.TD24 TD SCH (09:51)
[2020-07-15] MEDS: POLYETHYLENE GLYCOL 3350 POWDER 17 GM/1 PACKET PO SCH (09:51)
[2020-07-15] MEDS ORDERED: MULTIVITAMINS W-IRON TABLET, CHEWABLE PO SCH (10:00)
[2020-07-15] MEDS: HYDROXYZINE PAMOATE 25 MG CAPSULE PO PRN (16:06)
--- NOTE | 2020-07-15 19:01 | PDOC PROGRESS REPORT ---
Subjective Date:: 07/15/20 Subjective:: ИВАН MONTELONGO is a 35 year old female past medical history of IV drug abuse, was admitted to [facility] on 05/19/2020, for altered mental status, found to have MSSA bacteremia, and on 2D echo was noted to have endocarditis with large mitral valve requiring surgery and there is was transferred to [facility] on 06/06/2020. At [facility] cardiac surgery was consulted and patient received bovine mitral valve replacement with 27 mm mitral Magna Ease on 06/16/2020, she is transferred back to [facility] on 07/12/2020 to continue her IV antibiotics till 07/28/2019 which will be 6 weeks from the date of valve replacement on 06/16/2020. Patient was seen on morning rounds. She is found resting in bed, comfortably, on oxygen by nasal cannula. She was sleeping and said her name a few times and gently shook her shoulder. She denies dyspnea, orthopnea.. She reports that she is feeling well today, just tired. She denies abdominal discomfort today and is unable to comment on whether or not the distention has improved. She further denies fever, chills, chest pain, palpitations, dyspnea, orthopnea, nausea, vomiting, early satiety, diarrhea and constipation. She has no questions or concerns at this time. Nursing reports the patient has been intermittently diaphoretic with very brief episodes of tachycardia to the 130s today. Vital signs otherwise stable. Reason For Visit: ENDOCARDITIS Physical Exam Vital Signs: Temp Pulse Resp BP Pulse Ox 98.0 F 121 H 20 123/53 L 98 07/15/20 15:21 07/15/20 15:21 07/15/20 15:21 07/15/20 15:21 07/15/20 15:21 Intake & Output 07/14/20 07/15/20 07/16/20 06:59 06:59 06:59 Intake Total 2079 1586 776 Balance 2079 1586 776 Weight 89.3 kg 87.1 kg General appearance: PRESENT: no acute distress, disheveled, obese, well- developed, well-nourished Head exam: PRESENT: atraumatic, normocephalic Eye exam: PRESENT: conjunctiva pink, EOMI, PERRLA. ABSENT: scleral icterus Mouth exam: PRESENT: moist, tongue midline Respiratory exam: PRESENT: clear to auscultation brandon, symmetrical, unlabored, other - Supplemental oxygen by nasal cannula. ABSENT: rales, rhonchi, wheezes Cardiovascular exam: PRESENT: RRR, +S1, +S2. ABSENT: diastolic murmur, rubs, systolic murmur Pulses: PRESENT: normal dorsalis pedis pul Vascular exam: PRESENT: normal capillary refill GI/Abdominal exam: PRESENT: distended, normal bowel sounds, soft. ABSENT: guarding, mass, organolmegaly, rebound, tenderness Rectal exam: PRESENT: deferred Extremities exam: PRESENT: full ROM. ABSENT: calf tenderness, clubbing, pedal edema, +1 edema Musculoskeletal exam: PRESENT: ambulatory Neurological exam: PRESENT: alert, awake, oriented to person, oriented to place, oriented to time, oriented to situation, CN II-XII grossly intact. ABSENT: motor sensory deficit Psychiatric exam: PRESENT: appropriate affect, normal mood. ABSENT: homicidal ideation, suicidal ideation Skin exam: PRESENT: dry, intact, warm. ABSENT: cyanosis, rash Results Laboratory Results: 07/15/20 05:32 07/15/20 05:32 07/15/20 07/15/20 05:32 05:32 WBC 7.8 RBC 3.18 L Hgb 9.1 L Hct 27.2 L MCV 86 MCH 28.8 MCHC 33.7 RDW 16.8 H Plt Count 421 Sodium 135.8 L Potassium 4.8 Chloride 93 L Carbon Dioxide 34 H Anion Gap 9 BUN 15 Creatinine 0.94 Est GFR ( Amer) > 60 Glucose 157 H Calcium 9.8 Total Bilirubin 0.5 AST 18 Alkaline Phosphatase 115 Total Protein 7.8 Albumin 3.8 Impressions: Abdomen Ultrasound 07/14/20 00:00 IMPRESSION: Hepatomegaly. Contracted gallbladder as described. Right pleural effusion. Assessment and Plan - Diagnosis (1) Endocarditis due to methicillin susceptible Staphylococcus aureus (MSSA) Is this a current diagnosis for this admission?: Yes Plan: Status post mitral valve replacement on 06/16/2020 at [facility]. History of longstanding history IV drug use. As per chart review and previous physician's note: 05/19 admitted [facility] for AMS 05/20 TTE showed normal cardiac function, negative for vegetations, mild pulmonary hypertension 05/21 + BC MSSA x2 bottles 05/23 Negative BC on Nafcillin 2g q4hr 05/29 BABAK 2.8 x 1 cm posterior leaflet mitral valve vegetation 05/29 transferred to [facility] Repeat TTE at [facility] large mobile vegetation measuring 3.2x1.4cm with trivial MR. CT surgery scheduled at [facility] for 06/16, transfer back to [facility] 06/15 prior to surgery with Dr. Martinez. Status post bioprosthetic mitral valve replacement with 27 mm magna ease on 06/16/2020. Continue vancomycin at 1000 mg IV twice daily 6 weeks from the day of surgery which was 06/16/2020. Last day of antibiotic therapy 07/28/2019. 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 Hypoglycemia protocol. Continue home dose Basal and Premeal insulin. Sliding scale insulin. (3) Hepatitis C antibody positive in blood Is this a current diagnosis for this admission?: Yes Plan: RUQ U/s revealed hepatomegaly and a right-sided pleural effusion. No comment to ascites. Continue furosemide and spironolactone. Have increased spironolactone. Monitor output and electrolytes closely. Outpatient follow-up with GI and/or ID for treatment of hepatitis C. (4) Heroin abuse Is this a current diagnosis for this admission?: Yes Plan: Continue Subutex 8 mg twice daily. Outpatient follow up with [facility] the morning following discharge for continued management of substance abuse. (5) Normocytic normochromic anemia Is this a current diagnosis for this admission?: Yes Plan: Hgb stable. Multivitamin w. iron supplementation. (6) Septic embolism Is this a current diagnosis for this admission?: Yes Plan: Currently asymptomatic. 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 Patient is stating that she is currently asymptomatic, denies any focal neurological symptoms. Alert and oriented x4, p.o. tolerant, ambulatory having normal bowel bladder movement. Benign neurological examination. As per MRI for on 06/11/2020 Repeat brain MRI w/w/o contrast on 06/11 multiple rim-enhancing lesions within the cerebral hemispheres bilaterally similar which corresponded to previous areas of restricted diffusion, consistent with multifocal septic emboli. A couple of new foci of restricted diffusion in the parietal lobe bilaterally without associated enhancement may represent small bland embolic infarcts. Continue current treatment for endocarditis. Continue antiplatelets. Optimize diabetes control. - Time Time Spent with patient: 15-24 minutes Medications reviewed and adjusted accordingly: Yes Anticipated Discharge Disposition: Home, Self Care Anticipated Discharge Timeframe: 07/28/19
[2020-07-15] MEDS: MELATONIN 3 MG TABLET PO SCH (21:24)
[2020-07-15] MEDS: TRAZODONE HCL 50 MG TABLET PO SCH (21:24)
[2020-07-15] MEDS: PHARMACY COMMUNICATION ORDER MC SCH (21:30)
[2020-07-16] MEDS: CYCLOBENZAPRINE HCL 10 MG TABLET PO SCH ×3 (05:05→21:33)
[2020-07-16] MEDS: GABAPENTIN 400 MG CAPSULE PO SCH ×3 (05:05→21:33)
[2020-07-16] MEDS: VANCOMYCIN HCL 1,000 MG in DEXTROSE 5%-WATER 250 ML IV SCH ×2 (05:05→17:16)
[2020-07-16] MEDS: INSULIN NPH (ISOPHANE), HUMAN 100 UNIT/ML 3 ML SUBCUT SCH ×2 (07:13→15:46)
[2020-07-16] MEDS: INSULIN LISPRO 100 UNIT/ML 3 ML VIAL SUBCUT SCH ×7 (07:13→21:34)
[2020-07-16 07:45] LABS: ANION GAP 11 (5-19); BLOOD UREA NITROGEN 21 mg/dL (7-20); CALCIUM 9.6 mg/dL (8.4-10.2); CARBON DIOXIDE 33 mmol/L (22-30); CHLORIDE 92 mmol/L (98-107); CREATINE KINASE 25 U/L (30-135); GLUCOSE 210 mg/dL (75-110); POTASSIUM 4.5 mmol/L (3.6-5.0)
[2020-07-16 07:50] LABS: VANCOMYCIN,TROUGH 18.4 ug/mL (5.0-20.0)
[2020-07-16] MEDS ORDERED: SPIRONOLACTONE 25 MG TABLET PO SCH (10:00)
[2020-07-16] MEDS: FAMOTIDINE 20 MG TABLET PO SCH ×2 (10:13→21:33)
[2020-07-16] MEDS: ENOXAPARIN SODIUM INJ 40 MG/0.4 ML DISP.SYRIN SUBCUT SCH (10:13)
[2020-07-16] MEDS: LIDOCAINE 5% (700 MG) TRANSDERMAL ADH..PATCH TOP SCH (10:14)
[2020-07-16] MEDS: MAGNESIUM OXIDE 400 MG TABLET PO SCH (10:14)
[2020-07-16] MEDS: NICOTINE 21 MG/24 HR PATCH.TD24 TD SCH (10:14)
[2020-07-16] MEDS: BUPRENORPHINE HCL 2 MG SUBLINGUAL TABLET SL SCH ×2 (10:14→21:33)
[2020-07-16] MEDS: DOCUSATE SODIUM 100 MG CAPSULE PO SCH (10:14)
[2020-07-16] MEDS: PAROXETINE HCL 20 MG TABLET PO SCH (10:14)
[2020-07-16] MEDS: FUROSEMIDE 40 MG TABLET PO SCH (10:15)
[2020-07-16] MEDS: ASPIRIN 81 MG TABLET, ENT COATED PO SCH (10:15)
[2020-07-16] MEDS: POLYETHYLENE GLYCOL 3350 POWDER 17 GM/1 PACKET PO SCH (10:15)
[2020-07-16] MEDS: NORMAL SALINE 10 ML SDV (SCHEDULED) IV SCH ×2 (10:15→21:34)
[2020-07-16 12:25] LABS: APPEARANCE,URINE HAZY; BILIRUBIN,URINE NEGATIVE (NEGATIVE); COLOR,URINE STRAW; GLUCOSE, URINE NEGATIVE (NEGATIVE); KETONES,URINE NEGATIVE (NEGATIVE); LEUKOCYTE ESTERASE,URINE NEGATIVE (NEGATIVE); NITRITE,URINE NEGATIVE (NEGATIVE); PROTEIN,URINE NEGATIVE (NEGATIVE); URINE SPECIFIC GRAVITY 1.005; UROBILINOGEN,URINE NEGATIVE mg/dL (<2.0)
[2020-07-16] MEDS: ONDANSETRON 4 MG TAB.RAPDIS PO PRN (15:14)
[2020-07-16] MEDS: ACETAMINOPHEN 325 MG TABLET PO PRN (15:47)
--- NOTE | 2020-07-16 17:30 | RADIOLOGY REPORT (SQ) ---
EXAM DESCRIPTION: CHEST SINGLE VIEW IMAGES COMPLETED DATE/TIME: 07/16/2020 4:48 pm REASON FOR STUDY: hypoxia, tachycardia COMPARISON: 05/24/2020 EXAM PARAMETERS: NUMBER OF VIEWS: One view. TECHNIQUE: Single frontal radiographic view of the chest acquired. RADIATION DOSE: NA LIMITATIONS: None. FINDINGS: LUNGS AND PLEURA: Right pleural effusion. Opacification in the right base. MEDIASTINUM AND HILAR STRUCTURES: No masses. Contour normal. HEART AND VASCULAR STRUCTURES: Heart size is borderline. No igor pulmonary edema. BONES: No acute findings. HARDWARE: Sternotomy wires. Heart valve. Left-sided PICC. OTHER: No other significant finding. IMPRESSION: Borderline heart size without igor pulmonary edema. Right pleural effusion. Cannot ex clude a limited right lower lobe pneumonia. The appearance in the right base may be secondary to flu id that is layered out. TECHNICAL DOCUMENTATION: JOB ID: [id number] 2010 [employer]- All Rights Reserved Reading location - IP/workstation name: [email or web address]
--- NOTE | 2020-07-16 18:18 | PDOC PROGRESS REPORT ---
Subjective Date:: 07/16/20 Subjective:: ИВАН MONTELONGO is a 35 year old female past medical history of IV drug abuse, was admitted to [facility] on 05/19/2020, for altered mental status, found to have MSSA bacteremia, and on 2D echo was noted to have endocarditis with large mitral valve requiring surgery and there is was transferred to [facility] on 06/06/2020. At [facility] cardiac surgery was consulted and patient received bovine mitral valve replacement with 27 mm mitral Magna Ease on 06/16/2020, she is transferred back to [facility] on 07/12/2020 to continue her IV antibiotics till 07/28/2019 which will be 6 weeks from the date of valve replacement on 06/16/2020. Patient was seen on afternoon rounds. She is found resting in bed, comfortably, on oxygen by nasal cannula at 4lpm. It is not clear why as records shows she has maintained SpO2 >97% x72 hours. Ambulatory oxygen saturation showed that the patient did desaturate to the mid 80s with increased tachypnea while ambulatory on room air, however, resting room air saturation of 96%. Although the patient was very fatigued and fell asleep yesterday, she does remem tushar details of our conversation and follows up to ask about her treatment for hepatitis C, ultrasound results, and medication adjustments. She notes that her heart rate has been frequently elevated to 120, even while at rest. She denies chest pain or palpitations but checks frequently on the teleme try, "out of worry." She states that she was briefly on Toprol while at [facility] for sinus tachycardia and asks if it would be appropriate to resume this here. She otherwise has no questions or concerns at this time. She further denies fever, chills, chest pain, palpitations, dyspnea, orthopnea, nausea, vomiting, early satiety, diarrhea and constipation. No concerns per nursing. Reason For Visit: ENDOCARDITIS Physical Exam Vital Signs: Temp Pulse Resp BP Pulse Ox 97.8 F 104 H 16 108/51 L 99 07/16/20 11:17 07/16/20 14:00 07/16/20 11:17 07/16/20 11:17 07/16/20 11:17 Intake & Output 07/15/20 07/16/20 07/17/20 06:59 06:59 06:59 Intake Total 1586 1276 Balance 1586 1276 Weight 87.1 kg 87.1 kg General appearance: PRESENT: no acute distress, disheveled, obese, well- developed, well-nourished Head exam: PRESENT: atraumatic, normocephalic Eye exam: PRESENT: conjunctiva pink, EOMI, PERRLA. ABSENT: scleral icterus Mouth exam: PRESENT: moist, tongue midline Teeth exam: PRESENT: poor dentation Respiratory exam: PRESENT: clear to auscultation brandon, symmetrical, unlabored. ABSENT: rales, rhonchi, wheezes Cardiovascular exam: PRESENT: RRR. ABSENT: diastolic murmur, rubs, systolic murmur Pulses: PRESENT: normal dorsalis pedis pul Vascular exam: PRESENT: normal capillary refill GI/Abdominal exam: PRESENT: distended, normal bowel sounds, soft. ABSENT: guarding, mass, organolmegaly, rebound, tenderness Rectal exam: PRESENT: deferred Extremities exam: PRESENT: full ROM. ABSENT: calf tenderness, clubbing, pedal edema Musculoskeletal exam: PRESENT: ambulatory Neurological exam: PRESENT: alert, awake, oriented to person, oriented to place, oriented to time, oriented to situation, CN II-XII grossly intact. ABSENT: motor sensory deficit Psychiatric exam: PRESENT: appropriate affect, normal mood. ABSENT: homicidal ideation, suicidal ideation Skin exam: PRESENT: dry, intact, warm. ABSENT: cyanosis, rash Results Laboratory Results: 07/15/20 05:32 07/16/20 05:02 07/16/20 07/16/20 05:02 10:30 Sodium 135.6 L Potassium 4.5 Chloride 92 L Carbon Dioxide 33 H Anion Gap 11 BUN 21 H Creatinine 1.07 Est GFR ( Amer) > 60 Glucose 210 H Calcium 9.6 Urine Color STRAW Urine Appearance HAZY Urine pH 5.0 Ur Specific [place] 1.005 Urine Protein NEGATIVE Urine Glucose (UA) NEGATIVE Urine Ketones NEGATIVE Urine Blood NEGATIVE Urine Nitrite NEGATIVE Ur Leukocyte Esterase NEGATIVE Urine WBC (Auto) 1 Urine RBC (Auto) 1 07/16/20 05:02 Creatine Kinase 25 L Impressions: Abdomen Ultrasound 07/14/20 00:00 IMPRESSION: Hepatomegaly. Contracted gallbladder as described. Right pleural effusion. Assessment and Plan - Diagnosis (1) Endocarditis due to methicillin susceptible Staphylococcus aureus (MSSA) Is this a current diagnosis for this admission?: Yes Plan: Status post mitral valve replacement on 06/16/2020 at [facility] medical. History of longstanding history IV drug use. As per chart review and previous physician's note: 05/19 admitted [facility] for AMS 05/20 TTE showed normal cardiac function, negative for vegetations, mild pulmonary hypertension 05/21 + BC MSSA x2 bottles 05/23 Negative BC on Nafcillin 2g q4hr 05/29 BABAK 2.8 x 1 cm posterior leaflet mitral valve vegetation 05/29 transferred to [facility] Repeat TTE at [facility] large mobile vegetation measuring 3.2x1.4cm with trivial MR. CT surgery scheduled at [facility] for 06/16, transfer back to [facility] 06/15 prior to surgery with Dr. Martinez. Status post bioprosthetic mitral valve replacement with 27 mm magna ease on 06/16/2020. Continue vancomycin at 1000 mg IV twice daily 6 weeks from the day of surgery which was 06/16/2020. Last day of antibiotic therapy 07/28/2019. 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 Hypoglycemia protocol. Continue home dose Basal and Premeal insulin. Sliding scale insulin. (3) Hepatitis C antibody positive in blood Is this a current diagnosis for this admission?: Yes Plan: RUQ U/s revealed hepatomegaly and a right-sided pleural effusion. No comment to ascites. Continue furosemide and spironolactone. Monitor output and electrolytes closely. Outpatient follow-up with GI and/or ID for treatment of hepatitis C. (4) Heroin abuse Is this a current diagnosis for this admission?: Yes Plan: Continue Subutex 8 mg twice daily. Outpatient follow up with [facility] the morning following discharge for continued management of substance abuse. (5) Normocytic normochromic anemia Is this a current diagnosis for this admission?: Yes Plan: Hgb stable. Multivitamin w. iron supplementation. (6) Septic embolism Is this a current diagnosis for this admission?: Yes Plan: Currently asymptomatic. 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 Patient is stating that she is currently asymptomatic, denies any focal neurological symptoms. Alert and oriented x4, p.o. tolerant, ambulatory having normal bowel bladder movement. Benign neurological examination. As per MRI for on 06/11/2020 Repeat brain MRI w/w/o contrast on 06/11 multiple rim-enhancing lesions within the cerebral hemispheres bilaterally similar which corresponded to previous areas of restricted diffusion, consistent with multifocal septic emboli. A couple of new foci of restricted diffusion in the parietal lobe bilaterally without associated enhancement may represent small bland embolic infarcts. Continue current treatment for endocarditis. Continue antiplatelets. Optimize diabetes control. (7) Sinus tachycardia Is this a current diagnosis for this admission?: Yes Plan: Resting room air saturation 96%. Chest x-ray is benign other than a mild right sided pleural effusion and associated atelectasis. Mild cardiomegaly. Chemistry and CBC are reassuring. We will start low-dose Toprol 25 mg once daily and monitor for effect. - Time Time Spent with patient: 15-24 minutes Medications reviewed and adjusted accordingly: Yes Anticipated Discharge Disposition: Home, Self Care Anticipated Discharge Timeframe: 07/28/19
[2020-07-16] MEDS: METOPROLOL SUCCINATE 25 MG TAB.SR.24H PO SCH (18:39)
[2020-07-16] MEDS: MELATONIN 3 MG TABLET PO SCH (21:32)
[2020-07-16] MEDS: TRAZODONE HCL 50 MG TABLET PO SCH (21:33)
[2020-07-16] MEDS: PHARMACY COMMUNICATION ORDER MC SCH (21:34)
[2020-07-17 00:34] LABS: URINE AMPHETAMINES SCREEN NEGATIVE; URINE BARBITURATES SCREEN NEGATIVE; URINE BENZODIAZEPINES SCREEN NEGATIVE; URINE COCAINE SCREEN NEGATIVE; URINE MARIJUANA (THC) SCREEN NEGATIVE; URINE METHADONE SCREEN NEGATIVE; URINE PHENCYCLIDINE SCREEN NEGATIVE
[2020-07-17] MEDS: VANCOMYCIN HCL 1,000 MG in DEXTROSE 5%-WATER 250 ML IV SCH ×2 (05:46→17:21)
[2020-07-17] MEDS: GABAPENTIN 400 MG CAPSULE PO SCH ×3 (05:49→22:40)
[2020-07-17] MEDS: CYCLOBENZAPRINE HCL 10 MG TABLET PO SCH ×3 (05:50→22:40)
[2020-07-17] MEDS: INSULIN NPH (ISOPHANE), HUMAN 100 UNIT/ML 3 ML SUBCUT SCH ×2 (08:02→17:22)
[2020-07-17] MEDS: INSULIN LISPRO 100 UNIT/ML 3 ML VIAL SUBCUT SCH ×7 (08:02→22:57)
[2020-07-17] MEDS ORDERED: FUROSEMIDE 40 MG TABLET PO SCH (10:00)
[2020-07-17] MEDS: POLYETHYLENE GLYCOL 3350 POWDER 17 GM/1 PACKET PO SCH (11:05)
[2020-07-17] MEDS: ASPIRIN 81 MG TABLET, ENT COATED PO SCH (11:07)
[2020-07-17] MEDS: FAMOTIDINE 20 MG TABLET PO SCH ×2 (11:07→22:40)
[2020-07-17] MEDS: MAGNESIUM OXIDE 400 MG TABLET PO SCH (11:08)
[2020-07-17] MEDS: METOPROLOL SUCCINATE 25 MG TAB.SR.24H PO SCH (11:08)
[2020-07-17] MEDS: FUROSEMIDE 20 MG TABLET PO SCH (11:08)
[2020-07-17] MEDS: SPIRONOLACTONE 25 MG TABLET PO SCH (11:08)
[2020-07-17] MEDS: DOCUSATE SODIUM 100 MG CAPSULE PO SCH (11:08)
[2020-07-17] MEDS: NORMAL SALINE 10 ML SDV (SCHEDULED) IV SCH (11:09)
[2020-07-17] MEDS: PAROXETINE HCL 20 MG TABLET PO SCH (11:09)
[2020-07-17] MEDS: BUPRENORPHINE HCL 2 MG SUBLINGUAL TABLET SL SCH ×2 (11:10→22:40)
[2020-07-17] MEDS: ENOXAPARIN SODIUM INJ 40 MG/0.4 ML DISP.SYRIN SUBCUT SCH (11:10)
[2020-07-17] MEDS: NICOTINE 21 MG/24 HR PATCH.TD24 TD SCH (11:10)
[2020-07-17] MEDS: LIDOCAINE 5% (700 MG) TRANSDERMAL ADH..PATCH TOP SCH (11:11)
--- NOTE | 2020-07-17 15:10 | PDOC PROGRESS REPORT ---
Subjective Date:: 07/17/20 Subjective:: ИВАН MONTELONGO is a 35 year old female past medical history of IV drug abuse, was admitted to [facility] on 05/19/2020, for altered mental status, found to have MSSA bacteremia, and on 2D echo was noted to have endocarditis with large mitral valve requiring surgery and there is was transferred to [facility] on 06/06/2020. At [facility] cardiac surgery was consulted and patient received bovine mitral valve replacement with 27 mm mitral Magna Ease on 06/16/2020, she is transferred back to [facility] on 07/12/2020 to continue her IV antibiotics till 07/28/2019 which will be 6 weeks from the date of valve replacement on 06/16/2020. Patient was seen on morning rounds. She is found sitting up to the edge of the bed, comfortably, on oxygen by nasal cannula at 2lpm. She states that she is fe eling well. Would like to shower today. She otherwise has no questions or concerns at this time. She further denies fever, chills, chest pain, palpitations, dyspnea, orthopnea, nausea, vomiting, early satiety, diarrhea and constipation. No concerns per nursing. Reason For Visit: ENDOCARDITIS Physical Exam Vital Signs: Temp Pulse Resp BP Pulse Ox 98.9 F 95 20 122/69 98 07/17/20 11:26 07/17/20 11:26 07/17/20 11:26 07/17/20 11:26 07/17/20 11:26 Intake & Output 07/16/20 07/17/20 07/18/20 06:59 06:59 06:59 Intake Total 1276 760 790 Balance 1276 760 790 Weight 87.1 kg 87.5 kg General appearance: PRESENT: no acute distress, cooperative, disheveled, obese, well-developed, well-nourished Head exam: PRESENT: atraumatic, normocephalic Eye exam: PRESENT: conjunctiva pink, EOMI, PERRLA. ABSENT: scleral icterus Mouth exam: PRESENT: moist, tongue midline Teeth exam: PRESENT: poor dentation Respiratory exam: PRESENT: clear to auscultation brandon, symmetrical, unlabored. ABSENT: rales, rhonchi, wheezes Cardiovascular exam: PRESENT: RRR, +S1, +S2. ABSENT: diastolic murmur, rubs, systolic murmur Vascular exam: PRESENT: normal capillary refill Extremities exam: PRESENT: full ROM. ABSENT: calf tenderness, clubbing, pedal edema, +2 edema Musculoskeletal exam: PRESENT: ambulatory Neurological exam: PRESENT: alert, awake, oriented to person, oriented to place, oriented to time, oriented to situation, CN II-XII grossly intact. ABSENT: motor sensory deficit Psychiatric exam: PRESENT: appropriate affect, normal mood. ABSENT: homicidal ideation, suicidal ideation Skin exam: PRESENT: dry, intact, warm. ABSENT: cyanosis, rash Results Laboratory Results: 07/15/20 05:32 07/16/20 05:02 07/16/20 05:02 Creatine Kinase 25 L Impressions: Abdomen Ultrasound 07/14/20 00:00 IMPRESSION: Hepatomegaly. Contracted gallbladder as described. Right pleural effusion. Chest X-Ray 07/16/20 00:00 IMPRESSION: Borderline heart size without igor pulmonary edema. Right pleural effusion. Cannot exclude a limited right lower lobe pneumonia. The appearance in the right base may be secondary to fluid that is layered out. Assessment and Plan - Diagnosis (1) Endocarditis due to methicillin susceptible Staphylococcus aureus (MSSA) Is this a current diagnosis for this admission?: Yes Plan: Status post mitral valve replacement on 06/16/2020 at [facility]. History of longstanding history IV drug use. 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 CT surgery scheduled at [facility] for 06/16, transfer back to [facility] 06/15 prior to surgery with Dr. Martinez. Status post bioprosthetic mitral valve replacement with 27 mm magna ease on 06/16/2020. Continue vancomycin at 1000 mg IV twice daily 6 weeks from the day of surgery which was 06/16/2020. Last day of antibiotic therapy 07/28/2019. (2) Diabetes Qualifiers: Diabetes mellitus type: type 2 Diabetes mellitus residential insulin use: unspecified residential insulin use status Diabetes mellitus complication status: without complication Qualified Code(s): E11.9 - Type 2 diabetes mellitus without complications Is this a current diagnosis for this admission?: Yes Plan: Diabetic diet. Hypoglycemia protocol. Continue home dose Basal and Premeal insulin. Sliding scale insulin. (3) Hepatitis C antibody positive in blood Is this a current diagnosis for this admission?: Yes Plan: RUQ U/s revealed hepatomegaly and a right-sided pleural effusion. No comment to ascites. Continue furosemide and spironolactone. Monitor output and electrolytes closely. Outpatient follow-up with GI and/or ID for treatment of hepatitis C. (4) Heroin abuse Is this a current diagnosis for this admission?: Yes Plan: Continue Subutex 8 mg twice daily. Outpatient follow up with [facility] the morning following discharge for continued management of substance abuse. (5) Normocytic normochromic anemia Is this a current diagnosis for this admission?: Yes Plan: Hgb stable. Multivitamin w. iron supplementation. (6) Septic embolism Is this a current diagnosis for this admission?: Yes Plan: Currently asymptomatic. 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 Patient is stating that she is currently asymptomatic, denies any focal neurological symptoms. Alert and oriented x4, p.o. tolerant, ambulatory having normal bowel bladder movement. Benign neurological examination. As per MRI for on 06/11/2020 Repeat brain MRI w/w/o contrast on 06/11 multiple rim-enhancing lesions within the cerebral hemispheres bilaterally similar which corresponded to previous areas of restricted diffusion, consistent with multifocal septic emboli. A couple of new foci of restricted diffusion in the parietal lobe bilaterally without associated enhancement may represent small bland embolic infarcts. Continue current treatment for endocarditis. Continue antiplatelets. Optimize diabetes control. (7) Sinus tachycardia Is this a current diagnosis for this admission?: Yes Plan: Resolved; HR low to mid 90s. No longer w/ palpitations. Resting room air saturation 96%. Chest x-ray is benign other than a mild right sided pleural effusion and associated atelectasis. Mild cardiomegaly. Chemistry and CBC are reassuring. Continue Toprol 25 mg once daily. - Time Time Spent with patient: 25-34 minutes Medications reviewed and adjusted accordingly: Yes Anticipated Discharge Disposition: Home, Self Care Anticipated Discharge Timeframe: 07/28/19
[2020-07-17] MEDS: ONDANSETRON 4 MG TAB.RAPDIS PO PRN (18:03)
[2020-07-17] MEDS: TRAZODONE HCL 50 MG TABLET PO SCH (22:40)
[2020-07-17] MEDS: MELATONIN 3 MG TABLET PO SCH (22:40)
[2020-07-18] MEDS: PHARMACY COMMUNICATION ORDER MC SCH ×2 (01:52→22:36)
[2020-07-18] MEDS: NORMAL SALINE 10 ML SDV (SCHEDULED) IV SCH ×3 (01:53→22:27)
[2020-07-18] MEDS: GABAPENTIN 400 MG CAPSULE PO SCH ×3 (05:47→22:27)
[2020-07-18] MEDS: VANCOMYCIN HCL 1,000 MG in DEXTROSE 5%-WATER 250 ML IV SCH ×2 (05:48→17:16)
[2020-07-18] MEDS: CYCLOBENZAPRINE HCL 10 MG TABLET PO SCH ×3 (05:48→22:28)
[2020-07-18] MEDS: INSULIN LISPRO 100 UNIT/ML 3 ML VIAL SUBCUT SCH ×7 (08:02→22:29)
[2020-07-18] MEDS: INSULIN NPH (ISOPHANE), HUMAN 100 UNIT/ML 3 ML SUBCUT SCH ×2 (09:26→17:16)
[2020-07-18] MEDS: POLYETHYLENE GLYCOL 3350 POWDER 17 GM/1 PACKET PO SCH (09:29)
[2020-07-18] MEDS: FAMOTIDINE 20 MG TABLET PO SCH ×2 (09:30→22:28)
[2020-07-18] MEDS: MAGNESIUM OXIDE 400 MG TABLET PO SCH (09:30)
[2020-07-18] MEDS: METOPROLOL SUCCINATE 25 MG TAB.SR.24H PO SCH (09:30)
[2020-07-18] MEDS: PAROXETINE HCL 20 MG TABLET PO SCH (09:31)
[2020-07-18] MEDS: FUROSEMIDE 20 MG TABLET PO SCH (09:31)
[2020-07-18] MEDS: SPIRONOLACTONE 25 MG TABLET PO SCH (09:31)
[2020-07-18] MEDS: DOCUSATE SODIUM 100 MG CAPSULE PO SCH (09:31)
[2020-07-18] MEDS: ASPIRIN 81 MG TABLET, ENT COATED PO SCH (09:31)
[2020-07-18] MEDS: ENOXAPARIN SODIUM INJ 40 MG/0.4 ML DISP.SYRIN SUBCUT SCH (09:32)
[2020-07-18] MEDS: NICOTINE 21 MG/24 HR PATCH.TD24 TD SCH (09:33)
[2020-07-18] MEDS: LIDOCAINE 5% (700 MG) TRANSDERMAL ADH..PATCH TOP SCH (09:38)
[2020-07-18] MEDS: BUPRENORPHINE HCL 2 MG SUBLINGUAL TABLET SL SCH ×2 (09:39→22:30)
[2020-07-18] MEDS: ACETAMINOPHEN 325 MG TABLET PO PRN (12:04)
[2020-07-18] MEDS: ONDANSETRON 4 MG TAB.RAPDIS PO PRN (12:04)
[2020-07-18] MEDS: HYDROXYZINE PAMOATE 25 MG CAPSULE PO PRN ×2 (12:05→20:00)
--- NOTE | 2020-07-18 16:30 | PDOC PROGRESS REPORT ---
Subjective Date:: 07/18/20 Subjective:: ИВАН MONTELONGO is a 35 year old female past medical history of IV drug abuse, was admitted to [facility] on 05/19/2020, for altered mental status, found to have MSSA bacteremia, and on 2D echo was noted to have endocarditis with large mitral valve requiring surgery and there is was transferred to [facility] on 06/06/2020. At [facility] cardiac surgery was consulted and patient received bovine mitral valve replacement with 27 mm mitral Magna Ease on 06/16/2020, she is transferred back to [facility] on 07/12/2020 to continue her IV antibiotics till 07/28/2019 which will be 6 weeks from the date of valve replacement on 06/16/2020. Patient was seen on morning rounds. She was found resting in bed, comfortably, on oxygen by nasal cannula at 2lpm. She states that she is feeling well. She otherwise has no questions or concerns at this time. She further denies fever, chills, chest pain, palpitations, dyspnea, orthopnea, nausea, vomiting, early satiety, diarrhea and constipation. No concerns per nursing. Reason For Visit: ENDOCARDITIS Physical Exam Vital Signs: Temp Pulse Resp BP Pulse Ox 98.6 F 93 18 132/64 H 98 07/18/20 15:55 07/18/20 15:55 07/18/20 15:55 07/18/20 15:55 07/18/20 15:55 Intake & Output 07/17/20 07/18/20 07/19/20 06:59 06:59 06:59 Intake Total 760 2280 610 Balance 760 2280 610 Weight 87.5 kg 87.5 kg General appearance: PRESENT: no acute distress, cooperative, obese, well- developed, well-nourished Head exam: PRESENT: atraumatic, normocephalic Eye exam: PRESENT: conjunctiva pink, EOMI, PERRLA. ABSENT: scleral icterus Mouth exam: PRESENT: moist, tongue midline Respiratory exam: PRESENT: clear to auscultation brandon, symmetrical, unlabored, other - supplemental oxygen via NC. ABSENT: rales, rhonchi, wheezes Cardiovascular exam: PRESENT: RRR, +S1, +S2. ABSENT: diastolic murmur, rubs, systolic murmur Vascular exam: PRESENT: normal capillary refill Extremities exam: PRESENT: full ROM. ABSENT: calf tenderness, clubbing, pedal edema Musculoskeletal exam: PRESENT: ambulatory Neurological exam: PRESENT: alert, awake, oriented to person, oriented to place, oriented to time, oriented to situation, CN II-XII grossly intact. ABSENT: motor sensory deficit Psychiatric exam: PRESENT: appropriate affect, normal mood. ABSENT: homicidal ideation, suicidal ideation Skin exam: PRESENT: dry, intact, warm. ABSENT: cyanosis, rash Results Laboratory Results: 07/15/20 05:32 07/16/20 05:02 07/16/20 05:02 Creatine Kinase 25 L Impressions: Abdomen Ultrasound 07/14/20 00:00 IMPRESSION: Hepatomegaly. Contracted gallbladder as described. Right pleural effusion. Chest X-Ray 07/16/20 00:00 IMPRESSION: Borderline heart size without igor pulmonary edema. Right pleural effusion. Cannot exclude a limited right lower lobe pneumonia. The appearance in the right base may be secondary to fluid that is layered out. Assessment and Plan - Diagnosis (1) Endocarditis due to methicillin susceptible Staphylococcus aureus (MSSA) Is this a current diagnosis for this admission?: Yes Plan: Status post mitral valve replacement on 06/16/2020 at [facility] medical. History of longstanding history IV drug use. 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 CT surgery scheduled at [facility] for 06/16, transfer back to [facility] 06/15 prior to surgery with Dr. Martinez. Status post bioprosthetic mitral valve replacement with 27 mm magna ease on 06/16/2020. Continue vancomycin at 1000 mg IV twice daily 6 weeks from the day of surgery which was 06/16/2020. Last day of antibiotic therapy 07/28/2019. (2) Diabetes Qualifiers: Diabetes mellitus type: type 2 Diabetes mellitus mcc insulin use: unspecified mcc insulin use status Diabetes mellitus complication status: without complication Qualified Code(s): E11.9 - Type 2 diabetes mellit us without complications Is this a current diagnosis for this admission?: Yes Plan: Diabetic diet. Hypoglycemia protocol. Continue home dose Basal and Premeal insulin. Sliding scale insulin. (3) Hepatitis C antibody positive in blood Is this a current diagnosis for this admission?: Yes Plan: RUQ U/s revealed hepatomegaly and a right-sided pleural effusion. No comment to ascites. Continue furosemide and spironolactone. Monitor output and electrolytes closely. Outpatient follow-up with GI and/or ID for treatment of hepatitis C. (4) Heroin abuse Is this a current diagnosis for this admission?: Yes Plan: Continue Subutex 8 mg twice daily. Outpatient follow up with [facility] the morning following discharge for continued management of substance abuse. (5) Normocytic normochromic anemia Is this a current diagnosis for this admission?: Yes Plan: Hgb stable. Multivitamin w. iron supplementation. (6) Septic embolism Is this a current diagnosis for this admission?: Yes Plan: Currently asymptomatic. 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 Patient is stating that she is currently asymptomatic, denies any focal neurological symptoms. Alert and oriented x4, p.o. tolerant, ambulatory having normal bowel bladder movement. Benign neurological examination. As per MRI for on 06/11/2020 Repeat brain MRI w/w/o contrast on 06/11 multiple rim-enhancing lesions within the cerebral hemispheres bilaterally similar which corresponded to previous areas of restricted diffusion, consistent with multifocal septic emboli. A couple of new foci of restricted diffusion in the parietal lobe bilaterally without associated enhancement may represent small bland embolic infarcts. Continue current treatment for endocarditis. Continue antiplatelets. Optimize diabetes control. (7) Sinus tachycardia Is this a current diagnosis for this admission?: Yes Plan: Resolved; HR low to mid 90s. No longer w/ palpitations. Resting room air saturation 96%. Chest x-ray is benign other than a mild right sided pleural effusion and associated atelectasis. Mild cardiomegaly. Chemistry and CBC are reassuring. Continue Toprol 25 mg once daily. - Time Time Spent with patient: 15-24 minutes Medications reviewed and adjusted accordingly: Yes Anticipated Discharge Disposition: Home, Self Care Anticipated Discharge Timeframe: 07/28/19
[2020-07-18] MEDS: MELATONIN 3 MG TABLET PO SCH (22:27)
[2020-07-18] MEDS: TRAZODONE HCL 50 MG TABLET PO SCH (22:28)
[2020-07-19] MEDS: VANCOMYCIN HCL 1,000 MG in DEXTROSE 5%-WATER 250 ML IV SCH ×2 (05:00→17:53)
[2020-07-19] MEDS: CYCLOBENZAPRINE HCL 10 MG TABLET PO SCH ×3 (05:01→21:48)
[2020-07-19] MEDS: GABAPENTIN 400 MG CAPSULE PO SCH (05:01)
[2020-07-19 06:07] LABS: ANION GAP 10 (5-19); BLOOD UREA NITROGEN 17 mg/dL (7-20); CALCIUM 9.7 mg/dL (8.4-10.2); CARBON DIOXIDE 34 mmol/L (22-30); CHLORIDE 93 mmol/L (98-107); GLUCOSE 175 mg/dL (75-110); POTASSIUM 4.7 mmol/L (3.6-5.0)
[2020-07-19] MEDS: INSULIN LISPRO 100 UNIT/ML 3 ML VIAL SUBCUT SCH ×7 (07:52→21:47)
[2020-07-19] MEDS: INSULIN NPH (ISOPHANE), HUMAN 100 UNIT/ML 3 ML SUBCUT SCH ×2 (07:56→16:52)
[2020-07-19] MEDS: MAGNESIUM OXIDE 400 MG TABLET PO SCH (10:17)
[2020-07-19] MEDS: ASPIRIN 81 MG TABLET, ENT COATED PO SCH (10:17)
[2020-07-19] MEDS: PAROXETINE HCL 20 MG TABLET PO SCH (10:18)
[2020-07-19] MEDS: DOCUSATE SODIUM 100 MG CAPSULE PO SCH (10:18)
[2020-07-19] MEDS: FAMOTIDINE 20 MG TABLET PO SCH ×2 (10:18→21:48)
[2020-07-19] MEDS: ENOXAPARIN SODIUM INJ 40 MG/0.4 ML DISP.SYRIN SUBCUT SCH (10:19)
[2020-07-19] MEDS: NICOTINE 21 MG/24 HR PATCH.TD24 TD SCH (10:20)
[2020-07-19] MEDS: NORMAL SALINE 10 ML SDV (SCHEDULED) IV SCH ×2 (10:20→21:54)
[2020-07-19] MEDS: LIDOCAINE 5% (700 MG) TRANSDERMAL ADH..PATCH TOP SCH (10:21)
[2020-07-19] MEDS: POLYETHYLENE GLYCOL 3350 POWDER 17 GM/1 PACKET PO SCH (10:22)
[2020-07-19] MEDS: METOPROLOL SUCCINATE 25 MG TAB.SR.24H PO SCH (10:42)
[2020-07-19] MEDS: SPIRONOLACTONE 25 MG TABLET PO SCH (10:42)
[2020-07-19] MEDS: FUROSEMIDE 20 MG TABLET PO SCH (10:42)
[2020-07-19] MEDS ORDERED: BUPRENORPHINE HCL 2 MG SUBLINGUAL TABLET SL ONE (14:00)
[2020-07-19] MEDS ORDERED: GABAPENTIN 400 MG CAPSULE PO SCH (14:00)
[2020-07-19] MEDS: GABAPENTIN 300 MG CAPSULE PO SCH ×2 (15:01→21:48)
--- NOTE | 2020-07-19 15:03 | PDOC PROGRESS REPORT ---
Subjective Date:: 07/19/20 Subjective:: ИВАН MONTELONGO is a 35 year old female past medical history of IV drug abuse, was admitted to [facility] on 05/19/2020, for altered mental status, found to have MSSA bacteremia, and on 2D echo was noted to have endocarditis with large mitral valve requiring surgery and there is was transferred to [facility] on 06/06/2020. At [facility] cardiac surgery was consulted and patient received bovine mitral valve replacement with 27 mm mitral Magna Ease on 06/16/2020, she is transferred back to [facility] on 07/12/2020 to continue her IV antibiotics till 07/28/2019 which will be 6 weeks from the date of valve replacement on 06/16/2020. Patient was seen on morning rounds. She was found resting in bed, comfortably, on oxygen by nasal cannula at 2lpm. She states that she is feeling well. She otherwise has no questions or concerns at this time. She further denies fever, chills, chest pain, palpitations, dyspnea, orthopnea, nausea, vomiting, early satiety, diarrhea and constipation. No concerns per nursing. Reason For Visit: ENDOCARDITIS Physical Exam Vital Signs: Temp Pulse Resp BP Pulse Ox 98.2 F 89 18 106/60 99 07/19/20 10:12 07/19/20 10:12 07/19/20 10:12 07/19/20 10:12 07/19/20 10:12 Intake & Output 07/18/20 07/19/20 07/20/20 06:59 06:59 06:59 Intake Total 2279 2019 236 Balance 2279 2019 236 Weight 87.5 kg 87.5 kg General appearance: PRESENT: no acute distress, cooperative, obese, well- developed, well-nourished Head exam: PRESENT: atraumatic, normocephalic Eye exam: PRESENT: conjunctiva pink, EOMI, PERRLA. ABSENT: scleral icterus Ear exam: PRESENT: normal external ear exam Mouth exam: PRESENT: moist, tongue midline Respiratory exam: PRESENT: clear to auscultation brandon, symmetrical, unlabored, other - supplementlal oxygen via NC. ABSENT: rales, rhonchi, wheezes Cardiovascular exam: PRESENT: RRR. ABSENT: diastolic murmur, rubs, systolic murmur Pulses: PRESENT: normal dorsalis pedis pul Vascular exam: PRESENT: normal capillary refill Extremities exam: PRESENT: full ROM. ABSENT: calf tenderness, clubbing, pedal edema Musculoskeletal exam: PRESENT: ambulatory Neurological exam: PRESENT: alert, awake, oriented to person, oriented to place, oriented to time, oriented to situation, CN II-XII grossly intact. ABSENT: motor sensory deficit Psychiatric exam: PRESENT: appropriate affect, normal mood. ABSENT: homicidal ideation, suicidal ideation Skin exam: PRESENT: dry, intact, warm. ABSENT: cyanosis, rash Results Laboratory Results: 07/15/20 05:32 07/19/20 05:00 07/19/20 05:00 Sodium 136.5 L Potassium 4.7 Chloride 93 L Carbon Dioxide 34 H Anion Gap 10 BUN 17 Creatinine 1.10 Est GFR ( Amer) > 60 Glucose 175 H Calcium 9.7 07/16/20 05:02 Creatine Kinase 25 L Impressions: Abdomen Ultrasound 07/14/20 00:00 IMPRESSION: Hepatomegaly. Contracted gallbladder as described. Right pleural effusion. Chest X-Ray 07/16/20 00:00 IMPRESSION: Borderline heart size without igor pulmonary edema. Right pleural effusion. Cannot exclude a limited right lower lobe pneumonia. The appearance in the right base may be secondary to fluid that is layered out. Assessment and Plan - Diagnosis (1) Endocarditis due to methicillin susceptible Staphylococcus aureus (MSSA) Is this a current diagnosis for this admission?: Yes Plan: Status post mitral valve replacement on 06/16/2020 at [facility] medical. History of longstanding history IV drug use. As per chart review and previous physician's note: 05/19 admitted [facility] for AMS 05/20 TTE showed normal cardiac function, negative for vegetations, mild p ulmonary hypertension 05/21 + BC MSSA x2 bottles 05/23 Negative BC on Nafcillin 2g q4hr 05/29 BABAK 2.8 x 1 cm posterior leaflet mitral valve vegetation 05/29 transferred to [facility] Repeat TTE at [facility] large mobile vegetation measuring 3.2x1.4cm with trivial MR. CT surgery scheduled at [facility] for 06/16, transfer back to [facility] 06/15 prior to surgery with Dr. Martinez. Status post bioprosthetic mitral valve replacement with 27 mm magna ease on 06/16/2020. Continue vancomycin at 1000 mg IV twice daily 6 weeks from the day of surgery which was 06/16/2020. Last day of antibiotic therapy 07/28/2019. (2) Diabetes Qualifiers: Diabetes mellitus type: type 2 Diabetes mellitus residential insulin use: unspecified termite helper insulin use status Diabetes mellitus complication status: without complication Qualified Code(s): E11.9 - Type 2 diabetes mellitus without complications Is this a current diagnosis for this admission?: Yes Plan: Diabetic diet. Hypoglycemia protocol. Continue home dose Basal and Premeal insulin. Sliding scale insulin. (3) Hepatitis C antibody positive in blood Is this a current diagnosis for this admission?: Yes Plan: RUQ U/s revealed hepatomegaly and a right-sided pleural effusion. No comment to ascites. Continue furosemide and spironolactone. Monitor output and electrolytes closely. Outpatient follow-up with GI and/or ID for treatment of hepatitis C. (4) Heroin abuse Is this a current diagnosis for this admission?: Yes Plan: Continue Subutex 8 mg twice daily. Outpatient follow up with [facility] the morning following discharge for continued management of substance abuse. (5) Normocytic normochromic anemia Is this a current diagnosis for this admission?: Yes Plan: Hgb stable. Multivitamin w. iron supplementation. (6) Septic embolism Is this a current diagnosis for this admission?: Yes Plan: Currently asymptomatic. 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 Patient is stating that she is currently asymptomatic, denies any focal neurological symptoms. Alert and oriented x4, p.o. tolerant, ambulatory having normal bowel bladder movement. Benign neurological examination. As per MRI for on 06/11/2020 Repeat brain MRI w/w/o contrast on 06/11 multiple rim-enhancing lesions within the cerebral hemispheres bilaterally similar which corresponded to previous areas of restricted diffusion, consistent with multifocal septic emboli. A couple of new foci of restricted diffusion in the parietal lobe bilaterally without associated enhancement may represent small bland embolic infarcts. Continue current treatment for endocarditis. Continue antiplatelets. Optimize diabetes control. (7) Sinus tachycardia Is this a current diagnosis for this admission?: Yes Plan: Resolved; HR low to mid 90s. No longer w/ palpitations. Resting room air saturation 96%. Chest x-ray is benign other than a mild right sided pleural effusion and associated atelectasis. Mild cardiomegaly. Chemistry and CBC are reassuring. Continue Toprol 25 mg once daily. (8) Neuropathy Is this a current diagnosis for this admission?: Yes Plan: Complains of worsening paresthesia/neuropathy pain to BLE. Asks to increase gabapentin. Increase gabapentin to 600 mg TID. - Time Time Spent with patient: 15-24 minutes Medications reviewed and adjusted accordingly: Yes Anticipated Discharge Disposition: Home, Self Care Anticipated Discharge Timeframe: 07/28/19
[2020-07-19] MEDS: BUPRENORPHINE HCL 2 MG SUBLINGUAL TABLET SL SCH (21:47)
[2020-07-19] MEDS: MELATONIN 3 MG TABLET PO SCH (21:48)
[2020-07-19] MEDS: TRAZODONE HCL 50 MG TABLET PO SCH (21:48)
[2020-07-19] MEDS: PHARMACY COMMUNICATION ORDER MC SCH (21:54)
[2020-07-20] MEDS: VANCOMYCIN HCL 1,000 MG in DEXTROSE 5%-WATER 250 ML IV SCH ×2 (05:17→18:02)
[2020-07-20] MEDS: CYCLOBENZAPRINE HCL 10 MG TABLET PO SCH ×3 (05:17→21:56)
[2020-07-20] MEDS: GABAPENTIN 300 MG CAPSULE PO SCH ×3 (05:17→21:56)
[2020-07-20] MEDS: INSULIN LISPRO 100 UNIT/ML 3 ML VIAL SUBCUT SCH ×7 (08:34→22:07)
[2020-07-20] MEDS: INSULIN NPH (ISOPHANE), HUMAN 100 UNIT/ML 3 ML SUBCUT SCH ×2 (08:36→18:02)
[2020-07-20] MEDS: LIDOCAINE 5% (700 MG) TRANSDERMAL ADH..PATCH TOP SCH (10:00)
[2020-07-20] MEDS: SPIRONOLACTONE 25 MG TABLET PO SCH (11:22)
[2020-07-20] MEDS: DOCUSATE SODIUM 100 MG CAPSULE PO SCH (11:22)
[2020-07-20] MEDS: FAMOTIDINE 20 MG TABLET PO SCH ×2 (11:23→21:56)
[2020-07-20] MEDS: FUROSEMIDE 20 MG TABLET PO SCH (11:23)
[2020-07-20] MEDS: ASPIRIN 81 MG TABLET, ENT COATED PO SCH (11:25)
[2020-07-20] MEDS: PAROXETINE HCL 20 MG TABLET PO SCH (11:25)
[2020-07-20] MEDS: METOPROLOL SUCCINATE 25 MG TAB.SR.24H PO SCH (11:25)
[2020-07-20] MEDS: MAGNESIUM OXIDE 400 MG TABLET PO SCH (11:26)
[2020-07-20] MEDS: BUPRENORPHINE HCL 2 MG SUBLINGUAL TABLET SL SCH ×2 (11:26→21:57)
[2020-07-20] MEDS: NORMAL SALINE 10 ML SDV (SCHEDULED) IV SCH ×2 (11:26→23:08)
[2020-07-20] MEDS: NICOTINE 21 MG/24 HR PATCH.TD24 TD SCH (11:27)
[2020-07-20] MEDS: POLYETHYLENE GLYCOL 3350 POWDER 17 GM/1 PACKET PO SCH (11:27)
[2020-07-20] MEDS: ENOXAPARIN SODIUM INJ 40 MG/0.4 ML DISP.SYRIN SUBCUT SCH (11:27)
--- NOTE | 2020-07-20 18:35 | PDOC PROGRESS REPORT ---
Subjective Date:: 07/20/20 Subjective:: ИВАН MONTELONGO is a 35 year old female past medical history of IV drug abuse, was admitted to [facility] on 05/19/2020, for altered mental status, found to have MSSA bacteremia, and on 2D echo was noted to have endocarditis with large mitral valve requiring surgery and there is was transferred to [facility] on [facility]. At [facility] cardiac surgery was consulted and patient received bovine mitral valve replacement with 27 mm mitral Magna Ease on 06/16/2020, she is transferred back to [facility] on 07/12/2020 to continue her IV antibiotics till 07/28/2019 which will be 6 weeks from the date of valve replacement on 06/16/2020. Patient was seen on morning rounds. She was found resting in bed, comfortably, on oxygen by nasal cannula at 2lpm. She has no questions or concerns at this time. She further denies fever, chills, chest pain, palpitations, dyspnea, orthopnea, nausea, vomiting, early satiety, diarrhea and constipation. No concerns per nursing. Reason For Visit: ENDOCARDITIS Physical Exam Vital Signs: Temp Pulse Resp BP Pulse Ox 98.1 F 76 17 100/43 L 100 07/20/20 16:00 07/20/20 16:00 07/20/20 16:00 07/20/20 16:00 07/20/20 16:00 Intake & Output 07/19/20 07/20/20 07/21/20 06:59 06:59 06:59 Intake Total 2270 1536 240 Balance 2270 1536 240 Weight 87.5 kg 87.5 kg General appearance: PRESENT: no acute distress, cooperative, obese, well- developed, well-nourished Head exam: PRESENT: atraumatic, normocephalic Eye exam: PRESENT: conjunctiva pink, EOMI, PERRLA. ABSENT: scleral icterus Mouth exam: PRESENT: moist, tongue midline Respiratory exam: PRESENT: clear to auscultation brandon, symmetrical, unlabored. ABSENT: rales, rhonchi, wheezes Cardiovascular exam: PRESENT: RRR. ABSENT: diastolic murmur, rubs, systolic murmur Vascular exam: PRESENT: normal capillary refill Extremities exam: PRESENT: full ROM. ABSENT: calf tenderness, clubbing, pedal edema Musculoskeletal exam: PRESENT: ambulatory Neurological exam: PRESENT: alert, awake, oriented to person, oriented to place, oriented to time, oriented to situation, CN II-XII grossly intact. ABSENT: motor sensory deficit Psychiatric exam: PRESENT: appropriate affect, normal mood. ABSENT: homicidal ideation, suicidal ideation Skin exam: PRESENT: dry, intact, warm. ABSENT: cyanosis, rash Results Laboratory Results: 07/15/20 05:32 07/19/20 05:00 07/16/20 05:02 Creatine Kinase 25 L Impressions: Abdomen Ultrasound 07/14/20 00:00 IMPRESSION: Hepatomegaly. Contracted gallbladder as described. Right pleural effusion. Chest X-Ray 07/16/20 00:00 IMPRESSION: Borderline heart size without igor pulmonary edema. Right pleural effusion. Cannot exclude a limited right lower lobe pneumonia. The appearance in the right base may be secondary to fluid that is layered out. Assessment and Plan - Diagnosis (1) Endocarditis due to methicillin susceptible Staphylococcus aureus (MSSA) Is this a current diagnosis for this admission?: Yes Plan: Status post mitral valve replacement on 06/16/2020 at [facility]. History of longstanding history IV drug use. 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 CT surgery scheduled at [facility] for 06/16, transfer back to [facility] 06/15 prior to surgery with Dr. Martinez. Status post bioprosthetic mitral valve replacement with 27 mm magna ease on 06/16/2020. Continue vancomycin at 1000 mg IV twice daily 6 weeks from the day of surgery which was 06/16/2020. Last day of antibiotic therapy 07/28/2019. (2) Diabetes Qualifiers: Diabetes mellitus type: type 2 Diabetes mellitus bed bug exterminator insulin use: unspecified bed bug exterminator insulin use status Diabetes mellitus complication status: without complication Qualified Code(s): E11.9 - Type 2 diabetes mellitus without complications Is this a current diagnosis for this admission?: Yes Plan: Diabetic diet. Hypoglycemia protocol. Continue home dose Basal and Premeal insulin. Sliding scale insulin. (3) Hepatitis C antibody positive in blood Is this a current diagnosis for this admission?: Yes Plan: RUQ U/s revealed hepatomegaly and a right-sided pleural effusion. No comment to ascites. Continue furosemide and spironolactone. Monitor output and electrolytes closely. Outpatient follow-up with GI and/or ID for treatment of hepatitis C. (4) Heroin abuse Is this a current diagnosis for this admission?: Yes Plan: Continue Subutex 8 mg twice daily. Outpatient follow up with [facility] the morning following discharge for continued management of substance abuse. (5) Normocytic normochromic anemia Is this a current diagnosis for this admission?: Yes Plan: Hgb stable. Multivitamin w. iron supplementation. (6) Septic embolism Is this a current diagnosis for this admission?: Yes Plan: Currently asymptomatic. 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 Patient is stating that she is currently asymptomatic, denies any focal neurological symptoms. Alert and oriented x4, p.o. tolerant, ambulatory having normal bowel bladder movement. Benign neurological examination. As per MRI for on 06/11/2020 Repeat brain MRI w/w/o contrast on 06/11 multiple rim-enhancing lesions within the cerebral hemispheres bilaterally similar which corresponded to previous areas of restricted diffusion, consistent with multifocal septic emboli. A couple of new foci of restricted diffusion in the parietal lobe bilaterally without associated enhancement may represent small bland embolic infarcts. Continue current treatment for endocarditis. Continue antiplatelets. Optimize diabetes control. (7) Sinus tachycardia Is this a current diagnosis for this admission?: Yes Plan: Resolved; HR low to mid 90s. No longer w/ palpitations. Resting room air saturation 96%. Chest x-ray is benign other than a mild right sided pleural effusion and associated atelectasis. Mild cardiomegaly. Chemistry and CBC are reassuring. Continue Toprol 25 mg once daily. (8) Neuropathy Is this a current diagnosis for this admission?: Yes Plan: Complains of worsening paresthesia/neuropathy pain to BLE. Asks to increase gabapentin. Increase gabapentin to 600 mg TID. - Time Time Spent with patient: 15-24 minutes Medications reviewed and adjusted accordingly: Yes Anticipated Discharge Disposition: Home, Self Care Anticipated Discharge Timeframe: 07/28/20
[2020-07-20] MEDS: TRAZODONE HCL 50 MG TABLET PO SCH (21:56)
[2020-07-20] MEDS: MELATONIN 3 MG TABLET PO SCH (21:56)
[2020-07-20] MEDS: PHARMACY COMMUNICATION ORDER MC SCH (23:07)
[2020-07-21] MEDS: CYCLOBENZAPRINE HCL 10 MG TABLET PO SCH ×3 (05:53→22:09)
[2020-07-21] MEDS: GABAPENTIN 300 MG CAPSULE PO SCH ×3 (05:53→22:08)
[2020-07-21] MEDS: VANCOMYCIN HCL 1,000 MG in DEXTROSE 5%-WATER 250 ML IV SCH ×2 (05:59→18:29)
[2020-07-21 07:08] LABS: VANCOMYCIN,TROUGH 18.9 ug/mL (5.0-20.0)
[2020-07-21] MEDS: INSULIN LISPRO 100 UNIT/ML 3 ML VIAL SUBCUT SCH ×8 (08:52→22:52)
[2020-07-21] MEDS: INSULIN NPH (ISOPHANE), HUMAN 100 UNIT/ML 3 ML SUBCUT SCH ×2 (08:53→18:27)
[2020-07-21] MEDS: HYDROXYZINE PAMOATE 25 MG CAPSULE PO PRN (08:54)
[2020-07-21] MEDS: POLYETHYLENE GLYCOL 3350 POWDER 17 GM/1 PACKET PO SCH (10:14)
[2020-07-21] MEDS: METOPROLOL SUCCINATE 25 MG TAB.SR.24H PO SCH (10:15)
[2020-07-21] MEDS: FAMOTIDINE 20 MG TABLET PO SCH ×2 (10:15→22:09)
[2020-07-21] MEDS: BUPRENORPHINE HCL 2 MG SUBLINGUAL TABLET SL SCH ×2 (10:15→22:08)
[2020-07-21] MEDS: DOCUSATE SODIUM 100 MG CAPSULE PO SCH (10:16)
[2020-07-21] MEDS: ASPIRIN 81 MG TABLET, ENT COATED PO SCH (10:17)
[2020-07-21] MEDS: SPIRONOLACTONE 25 MG TABLET PO SCH (10:17)
[2020-07-21] MEDS: MAGNESIUM OXIDE 400 MG TABLET PO SCH (10:18)
[2020-07-21] MEDS: PAROXETINE HCL 20 MG TABLET PO SCH (10:18)
[2020-07-21] MEDS: FUROSEMIDE 20 MG TABLET PO SCH (10:18)
[2020-07-21] MEDS: MULTIVITAMIN TABLET PO SCH (10:18)
[2020-07-21] MEDS: NICOTINE 21 MG/24 HR PATCH.TD24 TD SCH (10:19)
[2020-07-21] MEDS: NORMAL SALINE 10 ML SDV (SCHEDULED) IV SCH ×2 (10:19→22:11)
[2020-07-21] MEDS: ENOXAPARIN SODIUM INJ 40 MG/0.4 ML DISP.SYRIN SUBCUT SCH (10:20)
[2020-07-21] MEDS: LIDOCAINE 5% (700 MG) TRANSDERMAL ADH..PATCH TOP SCH (10:26)
[2020-07-21 14:07] LABS: ABSOLUTE BASOPHILS # (AUTO) 0.1 10^3/uL (0.0-0.2); ABSOLUTE EOSINOPHILS # (AUTO) 0.5 10^3/uL (0.0-0.6); ABSOLUTE LYMPHOCYTES (AUTO) 1.6 10^3/uL (0.5-4.7); ABSOLUTE MONOCYTES (AUTO) 0.6 10^3/uL (0.1-1.4); ABSOLUTE NEUT (AUTO) 4.2 10^3/uL (1.7-8.2); EOSINOPHILS % (AUTO) 7.1 % (0-6); HEMATOCRIT 23.6 % (36.0-47.0); HEMOGLOBIN 8.3 g/dL (12.0-15.5); MEAN CORPUSCULAR HEMOGLOBIN 29.3 pg (27.0-33.4); MEAN CORPUSCULAR HGB CONC 35.1 g/dL (32.0-36.0); MEAN CORPUSCULAR VOLUME 83 fl (80-97); MONOCYTES % (AUTO) 8.8 % (3-13); PLATELET COUNT 427 10^3/uL (150-450); RED BLOOD COUNT 2.83 10^6/uL (3.72-5.28); RED CELL DISTRIBUTION WIDTH 16.7 % (11.5-14.0); SEGMENTED NEUTROPHILS % (AUTO) 60.1 % (42-78); TOTAL CELLS COUNTED % (AUTO) 100 %; WHITE BLOOD COUNT 7.1 10^3/uL (4.0-10.5)
[2020-07-21 14:12] LABS: APPEARANCE,URINE SLIGHTLY-CLOUDY; BILIRUBIN,URINE NEGATIVE (NEGATIVE); COLOR,URINE STRAW; GLUCOSE, URINE NEGATIVE (NEGATIVE); KETONES,URINE NEGATIVE (NEGATIVE); PROTEIN,URINE NEGATIVE (NEGATIVE); URINE SPECIFIC GRAVITY 1.006; UROBILINOGEN,URINE NEGATIVE mg/dL (<2.0)
[2020-07-21 14:27] LABS: ALBUMIN 3.7 g/dL (3.5-5.0); ALKALINE PHOSPHATASE 129 U/L (38-126); ANION GAP 10 (5-19); ASPARTATE AMINO TRANSFERASE 15 U/L (14-36); BILIRUBIN,DIRECT 0.5 mg/dL (0.0-0.4); BILIRUBIN,TOTAL 0.5 mg/dL (0.2-1.3); BLOOD UREA NITROGEN 17 mg/dL (7-20); CALCIUM 9.5 mg/dL (8.4-10.2); CARBON DIOXIDE 33 mmol/L (22-30); CHLORIDE 94 mmol/L (98-107); GLUCOSE 215 mg/dL (75-110); POTASSIUM 4.8 mmol/L (3.6-5.0); TOTAL PROTEIN 7.7 g/dL (6.3-8.2)
--- NOTE | 2020-07-21 15:39 | PDOC PROGRESS REPORT ---
Subjective Date:: 07/21/20 Subjective:: ИВАН MONTELONGO is a 35 year old female past medical history of IV drug abuse, was admitted to [facility] on 05/19/2020, for altered mental status, found to have MSSA bacteremia, and on 2D echo was noted to have endocarditis with large mitral valve requiring surgery and there is was transferred to [facility] on 06/06/2020. At [facility] cardiac surgery was consulted and patient received bovine mitral valve replacement with 27 mm mitral Magna Ease on 06/16/2020, she is transferred back to [facility] on 07/12/2020 to continue her IV antibiotics till 07/28/2019 which will be 6 weeks from the date of valve replacement on 06/16/2020. On presentation to [facility] patient remained hemodynamically stable, asymptomatic except for minor discomfort at the surgical area. Patient denies any fever, chills, nausea, vomiting, diarrhea, constipation, urinary symptoms, weakness, numbness or any focal neurological symptoms. Stating that she is ambulatory, having normal bowel and bladder movements and is p.o. tolerant. 07/21/2020. No acute events overnight. Complaining of mild dysuria, thinking that she is having UTI, stating that she has history of recurrent UTI and she is afraid that she might be getting another UTI, denies any fever, chills, nausea, vomiting, diarrhea, constipation or any urinary symptoms. Reason For Visit: ENDOCARDITIS Physical Exam Vital Signs: Temp Pulse Resp BP Pulse Ox 97.8 F 85 17 114/69 100 07/21/20 11:46 07/21/20 11:46 07/21/20 11:46 07/21/20 11:46 07/21/20 11:46 Intake & Output 07/20/20 07/21/20 07/22/20 06:59 06:59 06:59 Intake Total 1536 1494 862 Balance 1536 1494 862 Weight 87.5 kg 87.5 kg 87.5 kg General appearance: PRESENT: no acute distress, well-developed, well-nourished Head exam: PRESENT: atraumatic, normocephalic Respiratory exam: PRESENT: clear to auscultation brandon. ABSENT: rales, rhonchi, wheezes Cardiovascular exam: PRESENT: RRR. ABSENT: diastolic murmur, rubs, systolic murmur GI/Abdominal exam: PRESENT: normal bowel sounds, soft. ABSENT: distended, guarding, mass, organolmegaly, rebound, tenderness Neurological exam: PRESENT: alert, awake, oriented to person, oriented to place, oriented to time, oriented to situation, CN II-XII grossly intact. ABSENT: motor sensory deficit Results Laboratory Results: 07/21/20 13:50 07/21/20 13:50 07/21/20 07/21/20 07/21/20 05:54 13:50 13:50 WBC 7.1 RBC 2.83 L Hgb 8.3 L Hct 23.6 L MCV 83 MCH 29.3 MCHC 35.1 RDW 16.7 H Plt Count 427 Seg Neutrophils % 60.1 Sodium 137.3 Potassium 4.8 Chloride 94 L Carbon Dioxide 33 H Anion Gap 10 BUN 17 Creatinine 1.05 1.03 Est GFR ( Amer) > 60 > 60 Glucose 215 H Calcium 9.5 Total Bilirubin 0.5 AST 15 Alkaline Phosphatase 129 H Total Protein 7.7 Albumin 3.7 Urine Color Urine Appearance Urine pH Ur Specific [place] Urine Protein Urine Glucose (UA) Urine Ketones Urine Blood Urine RBC (Auto) 07/21/20 13:53 WBC RBC Hgb Hct MCV MCH MCHC RDW Plt Count Seg Neutrophils % Sodium Potassium Chloride Carbon Dioxide Anion Gap BUN Creatinine Est GFR ( Amer) Glucose Calcium Total Bilirubin AST Alkaline Phosphatase Total Protein Albumin Urine Color STRAW Urine Appearance SLIGHTLY-CLOUDY Urine pH 7.0 Ur Specific [place] 1.006 Urine Protein NEGATIVE Urine Glucose (UA) NEGATIVE Urine Ketones NEGATIVE Urine Blood NEGATIVE Urine RBC (Auto) 0 07/16/20 05:02 Creatine Kinase 25 L Impressions: Abdomen Ultrasound 07/14/20 00:00 IMPRESSION: Hepatomegaly. Contracted gallbladder as described. Right pleural effusion. Chest X-Ray 07/16/20 00:00 IMPRESSION: Borderline heart size without igor pulmonary edema. Right pleural effusion. Cannot exclude a limited right lower lobe pneumonia. The appearance in the right base may be secondary to fluid that is layered out. Assessment and Plan - Diagnosis (1) Endocarditis due to methicillin susceptible Staphylococcus aureus (MSSA) Is this a current diagnosis for this admission?: Yes Plan: Status post mitral valve replacement on 06/16/2020 at [facility]. History of longstanding history IV drug use. As per chart review and previous physician's note: 05/19 admitted [facility] for AMS 05/20 TTE showed normal cardiac function, negative for vegetations, mild pulmonary hypertension 05/21 + BC MSSA x2 bottles 05/23 Negative BC on Nafcillin 2g q4hr 05/29 BABAK 2.8 x 1 cm posterior leaflet mitral valve vegetation 05/29 transferred to [facility] Repeat TTE at [facility] large mobile vegetation measuring 3.2x1.4cm with trivial MR. CT surgery scheduled at [facility] for 06/16, transfer back to [facility] 06/15 prior to surg sherman with Dr. Martinez. Status post bioprosthetic mitral valve replacement with 27 mm magna ease on 06/16/2020. Continue vancomycin at 1000 mg IV twice daily 6 weeks from the day of surgery which was 06/16/2020. Last day of antibiotic therapy 07/28/2019. (2) Septic embolism Is this a current diagnosis for this admission?: Yes Plan: Currently asymptomatic. 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 Patient is stating that she is currently asymptomatic, denies any focal neurological symptoms. Alert and oriented x4, p.o. tolerant, ambulatory having normal bowel bladder movement. Benign neurological examination. As per MRI for on 06/11/2020 Repeat brain MRI w/w/o contrast on 06/11 multiple rim-enhancing lesions within the cerebral hemispheres bilaterally similar which corresponded to previous areas of restricted diffusion, consistent with multifocal septic emboli. A couple of new foci of restricted diffusion in the parietal lobe bilaterally without associated enhancement may represent small bland embolic infarcts. Continue current treatment for endocarditis. Continue antiplatelets. Optimize diabetes control. (3) Diabetes Qualifiers: Diabetes mellitus type: type 2 Diabetes mellitus chcf insulin use: unspecified termite helper insulin use status Diabetes mellitus complication status: without complication Qualified Code(s): E11.9 - Type 2 diabetes mellitus without complications Is this a current diagnosis for this admission?: Yes Plan: Diabetic diet. Hypoglycemia protocol. Continue home dose Basal and Premeal insulin. Sliding scale insulin. (4) Heroin abuse Is this a current diagnosis for this admission?: Yes Plan: Continue Subutex 8 mg twice daily. Outpatient follow up with [facility] the morning following discharge for continued management of substance abuse. (5) Neuropathy Is this a current diagnosis for this admission?: Yes Plan: Complains of worsening paresthesia/neuropathy pain to BLE. Asks to increase gabapentin. Increase gabapentin to 600 mg TID. (6) Sinus tachycardia Is this a current diagnosis for this admission?: Yes Plan: Resolved; HR low to mid 90s. No longer w/ palpitations. Resting room air saturation 96%. Chest x-ray is benign other than a mild right sided pleural effusion and associated atelectasis. Mild cardiomegaly. Chemistry and CBC are reassuring. Continue Toprol 25 mg once daily. (7) Hepatitis C antibody positive in blood Is this a current diagnosis for this admission?: Yes Plan: RUQ U/s revealed hepatomegaly and a right-sided pleural effusion. No comment to ascites. Continue furosemide and spironolactone. Monitor output and electrolytes closely. Outpatient follow-up with GI and/or ID for treatment of hepatitis C. (8) Normocytic normochromic anemia Is this a current diagnosis for this admission?: Yes Plan: Hgb stable. Multivitamin w. iron supplementation. - Time Time Spent with patient: 25-34 minutes Anticipated Discharge Disposition: Home, Self Care Anticipated Discharge Timeframe: 07/28/19
[2020-07-21] MEDS: MELATONIN 3 MG TABLET PO SCH (22:08)
[2020-07-21] MEDS: TRAZODONE HCL 50 MG TABLET PO SCH (22:09)
[2020-07-21] MEDS: PHARMACY COMMUNICATION ORDER MC SCH (22:10)
[2020-07-22] MEDS: VANCOMYCIN HCL 1,000 MG in DEXTROSE 5%-WATER 250 ML IV SCH ×2 (05:09→17:25)
[2020-07-22] MEDS: GABAPENTIN 300 MG CAPSULE PO SCH ×3 (05:10→21:27)
[2020-07-22] MEDS: CYCLOBENZAPRINE HCL 10 MG TABLET PO SCH ×3 (05:10→21:27)
[2020-07-22] MEDS: INSULIN LISPRO 100 UNIT/ML 3 ML VIAL SUBCUT SCH ×7 (07:48→21:28)
[2020-07-22] MEDS: INSULIN NPH (ISOPHANE), HUMAN 100 UNIT/ML 3 ML SUBCUT SCH ×2 (07:52→17:25)
[2020-07-22] MEDS: NORMAL SALINE 10 ML SDV (AFTER EACH USE) IV PRN (08:01)
[2020-07-22] MEDS: LIDOCAINE 5% (700 MG) TRANSDERMAL ADH..PATCH TOP SCH (09:15)
[2020-07-22] MEDS: ENOXAPARIN SODIUM INJ 40 MG/0.4 ML DISP.SYRIN SUBCUT SCH (09:15)
[2020-07-22] MEDS: PAROXETINE HCL 20 MG TABLET PO SCH (09:18)
[2020-07-22] MEDS: METOPROLOL SUCCINATE 25 MG TAB.SR.24H PO SCH (09:18)
[2020-07-22] MEDS: FAMOTIDINE 20 MG TABLET PO SCH ×2 (09:18→21:27)
[2020-07-22] MEDS: FUROSEMIDE 20 MG TABLET PO SCH (09:18)
[2020-07-22] MEDS: POLYETHYLENE GLYCOL 3350 POWDER 17 GM/1 PACKET PO SCH (09:18)
[2020-07-22] MEDS: ASPIRIN 81 MG TABLET, ENT COATED PO SCH (09:18)
[2020-07-22] MEDS: NICOTINE 21 MG/24 HR PATCH.TD24 TD SCH (09:18)
[2020-07-22] MEDS: MAGNESIUM OXIDE 400 MG TABLET PO SCH (09:18)
[2020-07-22] MEDS: DOCUSATE SODIUM 100 MG CAPSULE PO SCH (09:18)
[2020-07-22] MEDS: SPIRONOLACTONE 25 MG TABLET PO SCH (09:19)
[2020-07-22] MEDS: MULTIVITAMIN TABLET PO SCH (09:19)
[2020-07-22] MEDS: BUPRENORPHINE HCL 2 MG SUBLINGUAL TABLET SL SCH ×2 (09:19→21:27)
[2020-07-22] MEDS: NORMAL SALINE 10 ML SDV (SCHEDULED) IV SCH ×2 (09:20→21:29)
--- NOTE | 2020-07-22 12:18 | PDOC PROGRESS REPORT ---
Subjective Date:: 07/22/20 Subjective:: ИВАН MONTELONGO is a 35 year old female past medical history of IV drug abuse, was admitted to [facility] on 05/19/2020, for altered mental status, found to have MSSA bacteremia, and on 2D echo was noted to have endocarditis with large mitral valve requiring surgery and there is was transferred to [facility] on 06/06/2020. At [facility] cardiac surgery was consulted and patient received bovine mitral valve replacement with 27 mm mitral Magna Ease on 06/16/2020, she is transferred back to [facility] on 07/12/2020 to continue her IV antibiotics till 07/28/2019 which will be 6 weeks from the date of valve replacement on 06/16/2020. On presentation to [facility] patient remained hemodynamically stable, asymptomatic except for minor discomfort at the surgical area. Patient denies any fever, chills, nausea, vomiting, diarrhea, constipation, urinary symptoms, weakness, numbness or any focal neurological symptoms. Stating that she is ambulatory, having normal bowel and bladder movements and is p.o. tolerant. 07/21/2020. No acute events overnight. Complaining of mild dysuria, thinking that she is having UTI, stating that she has history of recurrent UTI and she is afraid that she might be getting another UTI, denies any fever, chills, nausea, vomiting, diarrhea, constipation or any urinary symptoms. 07/22/2020. No acute events overnight. Complaining of sore abdomen and abdominal distention otherwise denies any fever, chills, nausea, vomiting. Ambulatory, having normal bowel and bladder movements. Reason For Visit: ENDOCARDITIS Physical Exam Vital Signs: Temp Pulse Resp BP Pulse Ox 97.3 F 64 15 110/66 94 07/22/20 12:00 07/22/20 12:00 07/22/20 12:00 07/22/20 12:00 07/22/20 12:00 Intake & Output 07/21/20 07/22/20 07/23/20 06:59 06:59 06:59 Intake Total 1494 1470 250 Balance 1494 1470 250 Weight 87.5 kg 88.9 kg General appearance: PRESENT: no acute distress, well-developed, well-nourished Head exam: PRESENT: atraumatic, normocephalic Neck exam: ABSENT: carotid bruit, JVD, lymphadenopathy, thyromegaly Respiratory exam: PRESENT: clear to auscultation brandon. ABSENT: rales, rhonchi, wheezes Pulses: PRESENT: normal dorsalis pedis pul GI/Abdominal exam: PRESENT: distended, normal bowel sounds, soft. ABSENT: guarding, mass, organolmegaly, rebound, tenderness Neurological exam: PRESENT: alert, awake, oriented to person, oriented to place, oriented to time, oriented to situation, CN II-XII grossly intact. ABSENT: motor sensory deficit Results Laboratory Results: 07/21/20 13:50 07/21/20 13:50 07/21/20 07/21/20 07/21/20 13:50 13:50 13:53 WBC 7.1 RBC 2.83 L Hgb 8.3 L Hct 23.6 L MCV 83 MCH 29.3 MCHC 35.1 RDW 16.7 H Plt Count 427 Seg Neutrophils % 60.1 Sodium 137.3 Potassium 4.8 Chloride 94 L Carbon Dioxide 33 H Anion Gap 10 BUN 17 Creatinine 1.03 Est GFR ( Amer) > 60 Glucose 215 H Calcium 9.5 Total Bilirubin 0.5 AST 15 Alkaline Phosphatase 129 H Total Protein 7.7 Albumin 3.7 Urine Color STRAW Urine Appearance SLIGHTLY-CLOUDY Urine pH 7.0 Ur Specific [place] 1.006 Urine Protein NEGATIVE Urine Glucose (UA) NEGATIVE Urine Ketones NEGATIVE Urine Blood NEGATIVE Urine RBC (Auto) 0 07/16/20 05:02 Creatine Kinase 25 L Impressions: Abdomen Ultrasound 07/14/20 00:00 IMPRESSION: Hepatomegaly. Contracted gallbladder as described. Right pleural effusion. Chest X-Ray 07/16/20 00:00 IMPRESSION: Borderline heart size without igor pulmonary edema. Right pleural effusion. Cannot exclude a limited right lower lobe pneumonia. The appearance in the right base may be secondary to fluid that is layered out. Assessment and Plan - Diagnosis (1) Endocarditis due to methicillin susceptible Staphylococcus aureus (MSSA) Is this a current diagnosis for this admission?: Yes Plan: [facility] History of longstanding history IV drug use. As per chart review and previous physician's note: 05/19 Admitted [facility] for AMS 05/20 TTE showed normal cardiac function, negative for vegetations, mild pulmonary hypertension 05/21 Positive BC MSSA x2 bottles 11/06 Negative BC on Nafcillin 2g q4hr 05/29 BABAK 2.8 x 1 cm posterior leaflet mitral valve vegetation 05/29 Transferred to [facility] Repeat TTE at [facility] large mobile vegetation measuring 3.2x1.4cm with trivial MR. CT surgery scheduled at [facility] for 06/16, transfer back to [facility] 06/15 prior to surgery with Dr. Martinez. Status post bioprosthetic mitral valve replacement with 27 mm magna ease on 06/16/2020. Continue vancomycin at 1000 mg IV twice daily 6 weeks from the day of surgery which was 06/16/2020. Last day of antibiotic therapy 07/28/2019. (2) Septic embolism Is this a current diagnosis for this admission?: Yes Plan: Currently asymptomatic. 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 Patient is stating that she is currently asymptomatic, denies any focal neurological symptoms. Alert and oriented x4, p.o. tolerant, ambulatory having normal bowel bladder movement. Benign neurological examination. As per MRI for on 06/11/2020 Repeat brain MRI w/w/o contrast on 06/11 multiple rim-enhancing lesions within the cerebral hemispheres bilaterally similar which corresponded to previous areas of restricted diffusion, consistent with mul tifocal septic emboli. A couple of new foci of restricted diffusion in the parietal lobe bilaterally without associated enhancement may represent small bland embolic infarcts. Continue current treatment for endocarditis. Continue antiplatelets. Optimize diabetes control. (3) Diabetes Qualifiers: Diabetes mellitus type: type 2 Diabetes mellitus termite treater insulin use: unspecified termite treater insulin use status Diabetes mellitus complication status: without complication Qualified Code(s): E11.9 - Type 2 diabetes mellitus without complications Is this a current diagnosis for this admission?: Yes Plan: Diabetic diet. Hypoglycemia protocol. Continue home dose Basal and Premeal insulin. Sliding scale insulin. (4) Heroin abuse Is this a current diagnosis for this admission?: Yes Plan: Continue Subutex 8 mg twice daily. Outpatient follow up with [facility] the morning following discharge for continued management of substance abuse. (5) Neuropathy Is this a current diagnosis for this admission?: Yes Plan: Complains of worsening paresthesia/neuropathy pain to BLE. Asks to increase gabapentin. Increase gabapentin to 600 mg TID. (6) Sinus tachycardia Is this a current diagnosis for this admission?: Yes Plan: Resolved; HR low to mid 90s. No longer w/ palpitations. Resting room air saturation 96%. Chest x-ray is benign other than a mild right sided pleural effusion and as sociated atelectasis. Mild cardiomegaly. Chemistry and CBC are reassuring. Continue Toprol 25 mg once daily. (7) Hepatitis C antibody positive in blood Is this a current diagnosis for this admission?: Yes Plan: RUQ U/s revealed hepatomegaly and a right-sided pleural effusion. No comment to ascites. Continue furosemide and spironolactone. Monitor output and electrolytes closely. Outpatient follow-up with GI and/or ID for treatment of hepatitis C. (8) Normocytic normochromic anemia Is this a current diagnosis for this admission?: Yes Plan: Hgb stable. Multivitamin w. iron supplementation. - Time Time Spent with patient: 25-34 minutes Anticipated Discharge Disposition: Home, Self Care Anticipated Discharge Timeframe: 07/28/2019
[2020-07-22] MEDS: ALBUTEROL SULFATE HFA (90 MCG/PUFF) 8 GM MDI IH SCH ×2 (14:10→17:24)
[2020-07-22] MEDS: HYDROXYZINE PAMOATE 25 MG CAPSULE PO PRN (20:09)
[2020-07-22] MEDS: TRAZODONE HCL 50 MG TABLET PO SCH (21:27)
[2020-07-22] MEDS: MELATONIN 3 MG TABLET PO SCH (21:27)
[2020-07-22] MEDS: PHARMACY COMMUNICATION ORDER MC SCH (21:28)
[2020-07-23] MEDS: ALBUTEROL SULFATE HFA (90 MCG/PUFF) 8 GM MDI IH SCH ×4 (00:11→18:24)
[2020-07-23] MEDS: GABAPENTIN 300 MG CAPSULE PO SCH ×3 (05:21→21:06)
[2020-07-23] MEDS: VANCOMYCIN HCL 1,000 MG in DEXTROSE 5%-WATER 250 ML IV SCH ×2 (05:21→17:34)
[2020-07-23] MEDS: CYCLOBENZAPRINE HCL 10 MG TABLET PO SCH ×3 (05:21→21:06)
[2020-07-23 06:31] LABS: VANCOMYCIN,TROUGH 18.6 ug/mL (5.0-20.0)
[2020-07-23] MEDS: INSULIN LISPRO 100 UNIT/ML 3 ML VIAL SUBCUT SCH ×7 (08:39→22:47)
[2020-07-23] MEDS: INSULIN NPH (ISOPHANE), HUMAN 100 UNIT/ML 3 ML SUBCUT SCH ×2 (08:41→17:33)
--- NOTE | 2020-07-23 10:25 | PDOC PROGRESS REPORT ---
Subjective Date:: 07/23/20 Subjective:: ИВАН MONTELONGO is a 35 year old female past medical history of IV drug abuse, was admitted to [facility] on 05/19/2020, for altered mental status, found to have MSSA bacteremia, and on 2D echo was noted to have endocarditis with large mitral valve requiring surgery and there is was transferred to [facility] on 06/06/2020. At [facility] cardiac surgery was consulted and patient received bovine mitral valve replacement with 27 mm mitral Magna Ease on 06/16/2020, she is transferred back to [facility] on 07/12/2020 to continue her IV antibiotics till 07/28/2019 which will be 6 weeks from the date of valve replacement on 06/16/2020. On presentation to [facility] patient remained hemodynamically stable, asymptomatic except for minor discomfort at the surgical area. Patient denies any fever, chills, nausea, vomiting, diarrhea, constipation, urinary symptoms, weakness, numbness or any focal neurological symptoms. Stating that she is ambulatory, having normal bowel and bladder movements and is p.o. tolerant. 07/21/2020. No acute events overnight. Complaining of mild dysuria, thinking that she is having UTI, stating that she has history of recurrent UTI and she is afraid that she might be getting another UTI, denies any fever, chills, nausea, vomiting, diarrhea, constipation or any urinary symptoms. 07/22/2020. No acute events overnight. Complaining of sore abdomen and abdominal distention otherwise denies any fever, chills, nausea, vomiting. Ambulatory, having normal bowel and bladder movements. 07/23/2020. No acute events overnight. Still complaining of abdominal distention otherwise denies any fever, chills, nausea, vomiting, diarrhea, constipation or any urinary symptoms, ambulatory, having normal bowel and bladder movements. Reason For Visit: ENDOCARDITIS Physical Exam Vital Signs: Temp Pulse Resp BP Pulse Ox 98.1 F 73 18 108/62 100 07/23/20 07:23 07/23/20 07:23 07/23/20 07:23 07/23/20 07:23 07/23/20 07:23 Intake & Output 07/22/20 07/23/20 07/24/20 06:59 06:59 06:59 Intake Total 1470 1875 Balance 1470 1875 Weight 88.9 kg 88.4 kg General appearance: PRESENT: no acute distress, obese, well-developed, well- nourished Respiratory exam: PRESENT: clear to auscultation brandon. ABSENT: rales, rhonchi, wheezes Cardiovascular exam: PRESENT: RRR. ABSENT: diastolic murmur, rubs, systolic murmur GI/Abdominal exam: PRESENT: distended, normal bowel sounds, soft. ABSENT: guarding, mass, organolmegaly, rebound, tenderness Neurological exam: PRESENT: alert, awake, oriented to person, oriented to place, oriented to time, oriented to situation, CN II-XII grossly intact. ABSENT: motor sensory deficit Results Laboratory Results: 07/21/20 13:50 07/21/20 13:50 07/16/20 05:02 Creatine Kinase 25 L Impressions: Abdomen Ultrasound 07/14/20 00:00 IMPRESSION: Hepatomegaly. Contracted gallbladder as described. Right pleural effusion. Chest X-Ray 07/16/20 00:00 IMPRESSION: Borderline heart size without igor pulmonary edema. Right pleural effusion. Cannot exclude a limited right lower lobe pneumonia. The appearance in the right base may be secondary to fluid that is layered out. Assessment and Plan - Diagnosis (1) Endocarditis due to methicillin susceptible Staphylococcus aureus (MSSA) Is this a current diagnosis for this admission?: Yes Plan: Status post mitral valve replacement on 06/16/2020 at [facility] medical. History of longstanding history IV drug use. 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 CT surgery scheduled at [facility] for 06/16, transfer back to [facility] 06/15 prior to surgery with Dr. Martinez. Status post bioprosthetic mitral valve replacement with 27 mm magna ease on 06/16/2020. Continue vancomycin at 1000 mg IV twice daily 6 weeks from the day of surgery which was 06/16/2020. Last day of antibiotic therapy 07/28/2019. (2) Septic embolism Is this a current diagnosis for this admission?: Yes Plan: Currently asymptomatic. 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 Patient is stating that she is currently asymptomatic, denies any focal neurological symptoms. Alert and oriented x4, p.o. tolerant, ambulatory having normal bowel bladder movement. Benign neurological examination. As per MRI for on 06/11/2020 Repeat brain MRI w/w/o contrast on 06/11 multiple rim-enhancing lesions within the cerebral hemispheres bilaterally similar which corresponded to previous areas of restricted diffusion, consistent with multifocal septic emboli. A couple of new foci of restricted diffusion in the parietal lobe bilaterally without associated enhancement may represent small bland embolic infarcts. Continue current treatment for endocarditis. Continue antiplatelets. Optimize diabetes control. 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 Hypoglycemia protocol. Continue home dose Basal and Premeal insulin. Sliding scale insulin. (4) Heroin abuse Is this a current diagnosis for this admission?: Yes Plan: Continue Subutex 8 mg twice daily. Outpatient follow up with [facility] the morning following discharge for continued management of substance abuse. (5) Neuropathy Is this a current diagnosis for this admission?: Yes Plan: Complains of worsening paresthesia/neuropathy pain to BLE. Asks to increase gabapentin. Increase gabapentin to 600 mg TID. (6) Sinus tachycardia Is this a current diagnosis for this admission?: Yes Plan: Resolved; HR low to mid 90s. No longer w/ palpitations. Resting room air saturation 96%. Chest x-ray is benign other than a mild right sided pleural effusion and associated atelectasis. Mild cardiomegaly. Chemistry and CBC are reassuring. Continue Toprol 25 mg once daily. (7) Hepatitis C antibody positive in blood Is this a current diagnosis for this admission?: Yes Plan: RUQ U/s revealed hepatomegaly and a right-sided pleural effusion. No comment to ascites. Continue furosemide and spironolactone. Monitor output and electrolytes closely. Outpatient follow-up with GI and/or ID for treatment of hepatitis C. (8) Normocytic normochromic anemia Is this a current diagnosis for this admission?: Yes Plan: Hgb stable. Multivitamin w. iron supplementation. - Time Time Spent with patient: 25-34 minutes Anticipated Discharge Disposition: Home, Self Care Anticipated Discharge Timeframe: 07/28/2019
[2020-07-23] MEDS: NICOTINE 21 MG/24 HR PATCH.TD24 TD SCH (10:48)
[2020-07-23] MEDS: FAMOTIDINE 20 MG TABLET PO SCH ×2 (10:48→21:06)
[2020-07-23] MEDS: FUROSEMIDE 20 MG TABLET PO SCH (10:48)
[2020-07-23] MEDS: BUPRENORPHINE HCL 2 MG SUBLINGUAL TABLET SL SCH ×2 (10:48→21:06)
[2020-07-23] MEDS: POLYETHYLENE GLYCOL 3350 POWDER 17 GM/1 PACKET PO SCH (10:48)
[2020-07-23] MEDS: MAGNESIUM OXIDE 400 MG TABLET PO SCH (10:49)
[2020-07-23] MEDS: DOCUSATE SODIUM 100 MG CAPSULE PO SCH (10:49)
[2020-07-23] MEDS: METOPROLOL SUCCINATE 25 MG TAB.SR.24H PO SCH (10:49)
[2020-07-23] MEDS: SPIRONOLACTONE 25 MG TABLET PO SCH ×2 (10:49→10:59)
[2020-07-23] MEDS: ASPIRIN 81 MG TABLET, ENT COATED PO SCH (10:50)
[2020-07-23] MEDS: PAROXETINE HCL 20 MG TABLET PO SCH (10:50)
[2020-07-23] MEDS: MULTIVITAMIN TABLET PO SCH (10:50)
[2020-07-23] MEDS: LIDOCAINE 5% (700 MG) TRANSDERMAL ADH..PATCH TOP SCH (10:51)
[2020-07-23] MEDS: ENOXAPARIN SODIUM INJ 40 MG/0.4 ML DISP.SYRIN SUBCUT SCH ×2 (10:51→14:20)
[2020-07-23] MEDS: NORMAL SALINE 10 ML SDV (SCHEDULED) IV SCH ×2 (10:51→21:07)
[2020-07-23] MEDS: DICYCLOMINE HCL 10 MG CAPSULE PO PRN (18:23)
[2020-07-23] MEDS: HYDROXYZINE PAMOATE 25 MG CAPSULE PO PRN (18:23)
[2020-07-23] MEDS: PHARMACY COMMUNICATION ORDER MC SCH (21:05)
[2020-07-23] MEDS: MELATONIN 3 MG TABLET PO SCH (21:06)
[2020-07-23] MEDS: TRAZODONE HCL 50 MG TABLET PO SCH (21:06)
[2020-07-24] MEDS: ALBUTEROL SULFATE HFA (90 MCG/PUFF) 8 GM MDI IH SCH ×4 (01:00→17:58)
[2020-07-24] MEDS: DICYCLOMINE HCL 10 MG CAPSULE PO PRN (01:09)
[2020-07-24] MEDS: GABAPENTIN 300 MG CAPSULE PO SCH ×3 (05:09→21:35)
[2020-07-24] MEDS: VANCOMYCIN HCL 1,000 MG in DEXTROSE 5%-WATER 250 ML IV SCH ×2 (05:09→17:27)
[2020-07-24] MEDS: CYCLOBENZAPRINE HCL 10 MG TABLET PO SCH ×3 (05:09→21:35)
[2020-07-24] MEDS: INSULIN LISPRO 100 UNIT/ML 3 ML VIAL SUBCUT SCH ×7 (08:00→21:35)
[2020-07-24] MEDS: INSULIN NPH (ISOPHANE), HUMAN 100 UNIT/ML 3 ML SUBCUT SCH ×2 (08:00→17:35)
[2020-07-24] MEDS: MAGNESIUM OXIDE 400 MG TABLET PO SCH (09:09)
[2020-07-24] MEDS: MULTIVITAMIN TABLET PO SCH (09:09)
[2020-07-24] MEDS: FAMOTIDINE 20 MG TABLET PO SCH ×2 (09:09→21:35)
[2020-07-24] MEDS: PAROXETINE HCL 20 MG TABLET PO SCH (09:09)
[2020-07-24] MEDS: FUROSEMIDE 20 MG TABLET PO SCH (09:09)
[2020-07-24] MEDS: BUPRENORPHINE HCL 2 MG SUBLINGUAL TABLET SL SCH ×2 (09:09→21:35)
[2020-07-24] MEDS: ENOXAPARIN SODIUM INJ 40 MG/0.4 ML DISP.SYRIN SUBCUT SCH (09:10)
[2020-07-24] MEDS: ASPIRIN 81 MG TABLET, ENT COATED PO SCH (09:10)
[2020-07-24] MEDS: SPIRONOLACTONE 25 MG TABLET PO SCH (09:10)
[2020-07-24] MEDS: METOPROLOL SUCCINATE 25 MG TAB.SR.24H PO SCH (09:10)
[2020-07-24] MEDS: DOCUSATE SODIUM 100 MG CAPSULE PO SCH (09:10)
[2020-07-24] MEDS: POLYETHYLENE GLYCOL 3350 POWDER 17 GM/1 PACKET PO SCH (09:11)
[2020-07-24] MEDS: NORMAL SALINE 10 ML SDV (SCHEDULED) IV SCH ×2 (09:11→21:37)
[2020-07-24] MEDS: LIDOCAINE 5% (700 MG) TRANSDERMAL ADH..PATCH TOP SCH (09:11)
[2020-07-24] MEDS: NICOTINE 21 MG/24 HR PATCH.TD24 TD SCH (09:11)
--- NOTE | 2020-07-24 11:23 | RADIOLOGY REPORT (SQ) ---
EXAM DESCRIPTION: U/S ABDOMEN LIMITED W/O DOP IMAGES COMPLETED DATE/TIME: 07/24/2020 10:04 am REASON FOR STUDY: abdominal distention, hx hep C COMPARISON: None. TECHNIQUE: Limited Static and real time ibarra scale imaging performed of the 4 abdominal quadrants an d the midline. LIMITATIONS: None. FINDINGS: ASCITES: None identified. OTHER: No other significant finding. IMPRESSION: NO EVIDENCE FOR ASCITES. TECHNICAL DOCUMENTATION: JOB ID: [id number] 2010 [employer]- All Rights Reserved Reading location - IP/workstation name: [email or web address]
[2020-07-24] MEDS ORDERED: SIMETHICONE 80 MG TAB.CHEW PO PRN (11:29)
--- NOTE | 2020-07-24 11:31 | PDOC PROGRESS REPORT ---
Subjective Date:: 07/24/20 Subjective:: ИВАН MONTELONGO is a 35 year old female past medical history of IV drug abuse, was admitted to [facility] on 05/19/2020, for altered mental status, found to have MSSA bacteremia, and on 2D echo was noted to have endocarditis with large mitral valve requiring surgery and there is was transferred to [facility] on 06/06/2020. At [facility] cardiac surgery was consulted and patient received bovine mitral valve replacement with 27 mm mitral Magna Ease on 06/16/2020, she is transferred back to [facility] on 07/12/2020 to continue her IV antibiotics till 07/28/2019 which will be 6 weeks from the date of valve replacement on 06/16/2020. On presentation to [facility] patient remained hemodynamically stable, asymptomatic except for minor discomfort at the surgical area. Patient denies any fever, chills, nausea, vomiting, diarrhea, constipation, urinary symptoms, weakness, numbness or any focal neurological symptoms. Stating that she is ambulatory, having normal bowel and bladder movements and is p.o. tolerant. 07/21/2020. No acute events overnight. Complaining of mild dysuria, thinking that she is having UTI, stating that she has history of recurrent UTI and she is afraid that she might be getting another UTI, denies any fever, chills, nausea, vomiting, diarrhea, constipation or any urinary symptoms. 07/22/2020. No acute events overnight. Complaining of sore abdomen and abdominal distention otherwise denies any fever, chills, nausea, vomiting. Ambulatory, having normal bowel and bladder movements. 07/23/2020. No acute events overnight. Still complaining of abdominal distention otherwise denies any fever, chills, nausea, vomiting, diarrhea, constipation or any urinary symptoms, ambulatory, having normal bowel and bladder movements. 07/24/2020. No acute overnight. Still complaining of abdominal distention otherwise denies any fever, chills, nausea, vomiting, diarrhea, constipation or any urinary symptoms, ambulatory, having normal bowel and bladder movements. Repeat abdominal ultrasound negative for any sign of ascites. Reason For Visit: ENDOCARDITIS Physical Exam Vital Signs: Temp Pulse Resp BP Pulse Ox 98.3 F 86 22 H 114/64 96 07/24/20 07:54 07/24/20 07:54 07/24/20 07:54 07/24/20 07:54 07/24/20 07:54 Intake & Output 07/23/20 07/24/20 07/25/20 06:59 06:59 06:59 Intake Total 1875 1580 Balance 1875 1580 Weight 88.4 kg 88.3 kg General appearance: PRESENT: no acute distress, well-developed, well-nourished Head exam: PRESENT: atraumatic, normocephalic Respiratory exam: PRESENT: clear to auscultation brandon. ABSENT: rales, rhonchi, wheezes Cardiovascular exam: PRESENT: RRR. ABSENT: diastolic murmur, rubs, systolic murmur GI/Abdominal exam: PRESENT: distended, normal bowel sounds, soft. ABSENT: guarding, mass, organolmegaly, rebound, tenderness Neurological exam: PRESENT: alert, awake, oriented to person, oriented to place, oriented to time, oriented to situation, CN II-XII grossly intact. ABSENT: motor sensory deficit Results Laboratory Results: 07/21/20 13:50 07/21/20 13:50 07/16/20 05:02 Creatine Kinase 25 L Impressions: Chest X-Ray 07/16/20 00:00 IMPRESSION: Borderline heart size without igor pulmonary edema. Right pleural effusion. Cannot exclude a limited right lower lobe pneumonia. The appearance in the right base may be secondary to fluid that is layered out. Abdomen Ultrasound 07/24/20 00:00 IMPRESSION: NO EVIDENCE FOR ASCITES. Assessment and Plan - Diagnosis (1) Endocarditis due to methicillin susceptible Staphylococcus aureus (MSSA) Is this a current diagnosis for this admission?: Yes Plan: Status post mitral valve replacement on 06/16/2020 at [facility] medical. History of longstanding history IV drug use. 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 CT surgery scheduled at [facility] for 06/16, transfer back to [facility] 06/15 prior to surgery with Dr. Martinez. Status post bioprosthetic mitral valve replacement with 27 mm magna ease on 06/16/2020. Continue vancomycin at 1000 mg IV twice daily 6 weeks from the day of surgery which was 06/16/2020. Last day of antibiotic therapy 07/28/2019. (2) Septic embolism Is this a current diagnosis for this admission?: Yes Plan: Currently asymptomatic. 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 Patient is stating that she is currently asymptomatic, denies any focal neurological symptoms. Alert and oriented x4, p.o. tolerant, ambulatory having normal bowel bladder movement. Benign neurological examination. As per MRI for on 06/11/2020 Repeat brain MRI w/w/o contrast on 06/11 multiple rim-enhancing lesions within the cerebral hemispheres bilaterally similar which corresponded to previous areas of restricted diffusion, consistent with multifocal septic emboli. A couple of new foci of restricted diffusion in the parietal lobe bilaterally without associated enhancement may represent small bland embolic infarcts. Continue current treatment for endocarditis. Continue antiplatelets. Optimize diabetes control. (3) Diabetes Qualifiers: Diabetes mellitus type: type 2 Diabetes mellitus alf insulin use: unspecified alf insulin use status Diabetes mellitus complication status: without complication Qualified Code(s): E11.9 - Type 2 diabetes mellitus without complications Is this a current diagnosis for this admission?: Yes Plan: Diabetic diet. Hypoglycemia protocol. Continue home dose Basal and Premeal insulin. Sliding scale insulin. (4) Heroin abuse Is this a current diagnosis for this admission?: Yes Plan: Continue Subutex 8 mg twice daily. Outpatient follow up with [facility] the morning following discharge for continued management of substance abuse. (5) Neuropathy Is this a current diagnosis for this admission?: Yes Plan: Complains of worsening paresthesia/neuropathy pain to BLE. Asks to increase gabapentin. Increase gabapentin to 600 mg TID. (6) Sinus tachycardia Is this a current diagnosis for this admission?: Yes Plan: Resolved; HR low to mid 90s. No longer w/ palpitations. Resting room air saturation 96%. Chest x-ray is benign other than a mild right sided pleural effusion and associated atelectasis. Mild cardiomegaly. Chemistry and CBC are reassuring. Continue Toprol 25 mg once daily. (7) Hepatitis C antibody positive in blood Is this a current diagnosis for this admission?: Yes Plan: RUQ U/s revealed hepatomegaly and a right-sided pleural effusion. No comment to ascites. Continue furosemide and spironolactone. Monitor output and electrolytes closely. Outpatient follow-up with GI and/or ID for treatment of hepatitis C. (8) Normocytic normochromic anemia Is this a current diagnosis for this admission?: Yes Plan: Hgb stable. Multivitamin w. iron supplementation. - Time Time Spent with patient: 25-34 minutes Anticipated Discharge Disposition: Home, Self Care Anticipated Discharge Timeframe: 07/28/2020
[2020-07-24] MEDS ORDERED: SIMETHICONE 80 MG TAB.CHEW PO ONE (12:30)
[2020-07-24] MEDS: ACETAMINOPHEN 325 MG TABLET PO PRN (17:57)
[2020-07-24] MEDS: PHARMACY COMMUNICATION ORDER MC SCH (21:23)
[2020-07-24] MEDS: TRAZODONE HCL 50 MG TABLET PO SCH (21:35)
[2020-07-24] MEDS: MELATONIN 3 MG TABLET PO SCH (21:35)
[2020-07-25] MEDS: ALBUTEROL SULFATE HFA (90 MCG/PUFF) 8 GM MDI IH SCH ×4 (01:04→17:22)
[2020-07-25] MEDS: GABAPENTIN 300 MG CAPSULE PO SCH ×3 (05:53→21:12)
[2020-07-25] MEDS: VANCOMYCIN HCL 1,000 MG in DEXTROSE 5%-WATER 250 ML IV SCH ×2 (05:53→17:16)
[2020-07-25] MEDS: CYCLOBENZAPRINE HCL 10 MG TABLET PO SCH ×3 (05:54→21:13)
[2020-07-25] MEDS: INSULIN NPH (ISOPHANE), HUMAN 100 UNIT/ML 3 ML SUBCUT SCH ×2 (08:19→17:14)
[2020-07-25] MEDS: INSULIN LISPRO 100 UNIT/ML 3 ML VIAL SUBCUT SCH ×7 (08:20→21:06)
[2020-07-25] MEDS: ACETAMINOPHEN 325 MG TABLET PO PRN (09:14)
[2020-07-25] MEDS: MAGNESIUM OXIDE 400 MG TABLET PO SCH (09:14)
[2020-07-25] MEDS: FUROSEMIDE 20 MG TABLET PO SCH (09:14)
[2020-07-25] MEDS: DOCUSATE SODIUM 100 MG CAPSULE PO SCH (09:15)
[2020-07-25] MEDS: PAROXETINE HCL 20 MG TABLET PO SCH (09:15)
[2020-07-25] MEDS: FAMOTIDINE 20 MG TABLET PO SCH ×2 (09:15→21:12)
[2020-07-25] MEDS: MULTIVITAMIN TABLET PO SCH (09:15)
[2020-07-25] MEDS: SPIRONOLACTONE 25 MG TABLET PO SCH (09:15)
[2020-07-25] MEDS: METOPROLOL SUCCINATE 25 MG TAB.SR.24H PO SCH (09:15)
[2020-07-25] MEDS: ASPIRIN 81 MG TABLET, ENT COATED PO SCH (09:15)
[2020-07-25] MEDS: BUPRENORPHINE HCL 2 MG SUBLINGUAL TABLET SL SCH ×2 (09:16→21:11)
[2020-07-25] MEDS: NICOTINE 21 MG/24 HR PATCH.TD24 TD SCH (09:16)
[2020-07-25] MEDS: NORMAL SALINE 10 ML SDV (SCHEDULED) IV SCH ×2 (09:17→21:14)
[2020-07-25] MEDS: DICYCLOMINE HCL 10 MG CAPSULE PO PRN ×2 (09:17→17:21)
[2020-07-25] MEDS: ENOXAPARIN SODIUM INJ 40 MG/0.4 ML DISP.SYRIN SUBCUT SCH (09:18)
[2020-07-25] MEDS: POLYETHYLENE GLYCOL 3350 POWDER 17 GM/1 PACKET PO SCH (09:18)
[2020-07-25] MEDS: LIDOCAINE 5% (700 MG) TRANSDERMAL ADH..PATCH TOP SCH (09:18)
--- NOTE | 2020-07-25 11:33 | RADIOLOGY REPORT (SQ) ---
EXAM DESCRIPTION: CHEST SINGLE VIEW IMAGES COMPLETED DATE/TIME: 07/25/2020 11:15 am REASON FOR STUDY: hypoxia COMPARISON: 07/16/2020 EXAM PARAMETERS: NUMBER OF VIEWS: One view. TECHNIQUE: Single frontal radiographic view of the chest acquired. RADIATION DOSE: NA LIMITATIONS: None. FINDINGS: LUNGS AND PLEURA: Stable right basilar opacities, likely combination of effusion and atele ctasis. No pneumothorax. Unremarkable left hemithorax. MEDIASTINUM AND HILAR STRUCTURES: No masses. Contour normal. HEART AND VASCULAR STRUCTURES: Enlarged, stable. BONES: No acute findings. HARDWARE: Left approach PICC tip terminates at cavoatrial junction. Sternotomy changes. Mitral valv ular prostheses. OTHER: No other significant finding. IMPRESSION: Stable mild right basilar pleural effusion and associated atelectasis. Stable enlarged cardiac silhouette. TECHNICAL DOCUMENTATION: JOB ID: [id number] 2010 [employer]- All Rights Reserved Reading location - IP/workstation name: [email or web address]
--- NOTE | 2020-07-25 13:36 | PDOC PROGRESS REPORT ---
Subjective Date:: 07/25/20 Subjective:: ИВАН MONTELONGO is a 35 year old female past medical history of IV drug abuse, was admitted to [facility] on 05/19/2020, for altered mental status, found to have MSSA bacteremia, and on 2D echo was noted to have endocarditis with large mitral valve requiring surgery and there is was transferred to [facility] on 06/06/2020. At [facility] cardiac surgery was consulted and patient received bovine mitral valve replacement with 27 mm mitral Magna Ease on 06/16/2020, she is transferred back to [facility] on 07/12/2020 to continue her IV antibiotics till 07/28/2019 which will be 6 weeks from the date of valve replacement on 06/16/2020. On presentation to [facility] patient remained hemodynamically stable, asymptomatic except for minor discomfort at the surgical area. Patient denies any fever, chills, nausea, vomiting, diarrhea, constipation, urinary symptoms, weakness, numbness or any focal neurological symptoms. Stating that she is ambulatory, having normal bowel and bladder movements and is p.o. tolerant. 07/21/2020. No acute events overnight. Complaining of mild dysuria, thinking that she is having UTI, stating that she has history of recurrent UTI and she is afraid that she might be getting another UTI, denies any fever, chills, nausea, vomiting, diarrhea, constipation or any urinary symptoms. 07/22/2020. No acute events overnight. Complaining of sore abdomen and abdominal distention otherwise denies any fever, chills, nausea, vomiting. Ambulatory, having normal bowel and bladder movements. 07/23/2020. No acute events overnight. Still complaining of abdominal distention otherwise denies any fever, chills, nausea, vomiting, diarrhea, constipation or any urinary symptoms, ambulatory, having normal bowel and bladder movements. 07/24/2020. No acute overnight. Still complaining of abdominal distention otherwise denies any fever, chills, nausea, vomiting, diarrhea, constipation or any urinary symptoms, ambulatory, having normal bowel and bladder movements. Repeat abdominal ultrasound negative for any sign of ascites. 07/25/2020. No acute events overnight, patient still complaining of persistent abdominal distention and dyspnea on exertion, I have been trying to wean her off of oxygen but unfortunately if the patient exert herself she gets short of breath still dependent on supplemental oxygen, abdominal ultrasound negative for any ascites but concerning for possible acute CHF, pneumonia or PE. Reason For Visit: ENDOCARDITIS Physical Exam Vital Signs: Temp Pulse Resp BP Pulse Ox 97.4 F 89 18 117/72 100 07/25/20 11:08 07/25/20 11:08 07/25/20 11:08 07/25/20 11:08 07/25/20 11:08 Intake & Output 07/24/20 07/25/20 07/26/20 06:59 06:59 06:59 Intake Total 1580 1491 510 Balance 1580 1491 510 Weight 88.3 kg 87.8 kg General appearance: PRESENT: no acute distress, obese, well-developed, well- nourished Head exam: PRESENT: atraumatic, normocephalic Neck exam: ABSENT: carotid bruit, JVD, lymphadenopathy, thyromegaly Respiratory exam: PRESENT: clear to auscultation brandon. ABSENT: rales, rhonchi, wheezes Cardiovascular exam: PRESENT: RRR. ABSENT: diastolic murmur, rubs, systolic murmur GI/Abdominal exam: PRESENT: distended, normal bowel sounds, soft. ABSENT: guarding, mass, organolmegaly, rebound, tenderness Extremities exam: PRESENT: full ROM. ABSENT: calf tenderness, clubbing, pedal edema Neurological exam: PRESENT: alert, awake, oriented to person, oriented to place, oriented to time, oriented to situation, CN II-XII grossly intact. ABSENT: motor sensory deficit Results Laboratory Results: 07/21/20 13:50 07/21/20 13:50 07/16/20 07/25/20 05:02 11:58 Creatine Kinase 25 L NT-Pro-B Natriuret Pep 3460 H Impressions: Abdomen Ultrasound 07/24/20 00:00 IMPRESSION: NO EVIDENCE FOR ASCITES. Chest X-Ray 07/25/20 00:00 IMPRESSION: Stable mild right basilar pleural effusion and associated atelectasis. Stable enlarged cardiac silhouette. Assessment and Plan - Diagnosis (1) Acute CHF (congestive heart failure) Qualifiers: Heart failure type: systolic Qualified Code(s): I50.21 - Acute systolic (congestive) heart failure Is this a current diagnosis for this admission?: Yes Plan: Denies any anginal symptoms. No history of CAD. Mitral valve replacement due to infective endocarditis. 05/29/2020 BABAK: LVEF normal, ejection fraction more than 55%. 07/25/2020 proBNP 3460 Cardiac diet, fluid restriction, strict in and out, IV Lasix, beta blockers. We will repeat 2D echo. (2) Endocarditis due to methicillin susceptible Staphylococcus aureus (MSSA) Is this a current diagnosis for this admission?: Yes Plan: Status post mitral valve replacement on 06/16/2020 at [facility]. History of longstanding history IV drug use. As per chart review and previous physician's note: 05/19 Admitted [facility] for AMS 05/20 TTE showed normal cardiac function, negative for vegetations, mild pulmonary hypertension 05/21 Positive BC MSSA x2 bottles 05/23 Negative BC on Nafcillin 2g q4hr 05/29 BABAK 2.8 x 1 cm posterior leaflet mitral valve vegetation 05/29 Transferred to [facility] Repeat TTE at [facility] large mobile vegetation measuring 3.2x1.4cm with trivial MR. CT surgery scheduled at [facility] for 06/16, transfer back to [facility] 06/15 prior to surgery with Dr. Martinez. Status post bioprosthetic mitral valve replacement with 27 mm magna ease on 06/16/2020. Continue vancomycin at 1000 mg IV twice daily 6 weeks from the day of surgery which was 06/16/2020. Last day of antibiotic therapy 07/28/2019. (3) Septic embolism Is this a current diagnosis for this admission?: Yes Plan: Currently asymptomatic. 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 Patient is stating that she is currently asymptomatic, denies any focal neurological symptoms. Alert and oriented x4, p.o. tolerant, ambulatory having normal bowel bladder movement. Benign neurological examination. As per MRI for on 06/11/2020 Repeat brain MRI w/w/o contrast on 06/11 multiple rim-enhancing lesions within the cerebral hemispheres bilaterally similar which corresponded to previous areas of restricted diffusion, consistent with multifo tamiko septic emboli. A couple of new foci of restricted diffusion in the parietal lobe bilaterally without associated enhancement may represent small bland embolic infarcts. Continue current treatment for endocarditis. Continue antiplatelets. Optimize diabetes control. 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 Hypoglycemia protocol. Continue home dose Basal and Premeal insulin. Sliding scale insulin. (5) Heroin abuse Is this a current diagnosis for this admission?: Yes Plan: Continue Subutex 8 mg twice daily. Outpatient follow up with [facility] the morning following discharge for continued management of substance abuse. (6) Neuropathy Is this a current diagnosis for this admission?: Yes Plan: Complains of worsening paresthesia/neuropathy pain to BLE. Asks to increase gabapentin. Increase gabapentin to 600 mg TID. (7) Sinus tachycardia Is this a current diagnosis for this admission?: Yes Plan: Resolved; HR low to mid 90s. No longer w/ palpitations. Resting room air saturation 96%. Chest x-ray is benign other than a mild right sided pleural effusion and associ ated atelectasis. Mild cardiomegaly. Chemistry and CBC are reassuring. Continue Toprol 25 mg once daily. (8) Hepatitis C antibody positive in blood Is this a current diagnosis for this admission?: Yes Plan: RUQ U/s revealed hepatomegaly and a right-sided pleural effusion. No comment to ascites. Continue furosemide and spironolactone. Monitor output and electrolytes closely. Outpatient follow-up with GI and/or ID for treatment of hepatitis C. (9) Normocytic normochromic anemia Is this a current diagnosis for this admission?: Yes Plan: Hgb stable. Multivitamin w. iron supplementation. - Time Time Spent with patient: 35 or more minutes Anticipated Discharge Disposition: Home, Self Care Anticipated Discharge Timeframe: 07/28/2019
[2020-07-25] MEDS: FUROSEMIDE INJ/PF 20 MG/2 ML SDV IV SCH ×2 (14:04→21:13)
[2020-07-25 15:15] LABS: ANION GAP 9 (5-19); BLOOD UREA NITROGEN 18 mg/dL (7-20); CALCIUM 9.3 mg/dL (8.4-10.2); CARBON DIOXIDE 33 mmol/L (22-30); CHLORIDE 93 mmol/L (98-107); GLUCOSE 288 mg/dL (75-110); POTASSIUM 4.8 mmol/L (3.6-5.0)
--- NOTE | 2020-07-25 17:05 | XCELERA REPORT ---
[address] [address] Transthoracic Echocardiogram Report Name: ИВАН MONTELONGO Age: 35 yrs Gender: Female : 1985 Patient Status: Inpatient Patient Location: [address] [place], [place] [address] Study Date: 07/25/2020 03:11 PM History: CHF MV IE s/p Replacement Height: 64 in Weight: 193 lb BSA: 1.9 m2 Procedure: A complete two-dimensional transthoracic echocardiogram was performed (2D, M-mode, spectral and color flow Doppler). The study was technically adequate with some images being suboptimal in quality. Reason For Study: Persistent hypoxia, elevated proBNP Previous Evaluation: A previous study was performed on 05/29/2020 LVEF was preserved BABAK MV IE. History: CHF. MV replacement. Ordering Physician: DIXON HURTADO Performed By: Patrica Segovia Interpretation Summary Left ventricular systolic function is normal. The Ejection Fraction estimate is 55-60% The right ventricle is normal in size and function. The prosthetic mitral valve is well-seated. There is no aortic valve stenosis There is a moderate to severe amount of tricuspid regurgitation There is moderate pulmonary hypertension by echo There is no pericardial effusion. MMode/2D Measurements & Calculations RVDd: 3.0 cm LVIDd: 3.8 cm FS: 30.4 % Ao root diam: 2.9 cm IVSd: 1.3 cm LVIDs: 2.6 cm EDV(Teich): 60.3 ml Ao root area: 6.8 cm2 LVPWd: 1.3 cm ESV(Teich): 25.0 ml LA dimension: 3.7 cm EF(Teich): 58.6 % Doppler Measurements & Calculations MV E max faraz: MV P1/2t max faraz: Ao V2 max: LV V1 max P.8 cm/sec 259.9 cm/sec 155.4 cm/sec 6.9 mmHg MV A max faraz: MV P1/2t: 68.6 msec Ao max PG: LV V1 max: 144.5 cm/sec MVA(P1/2t): 3.2 cm2 9.7 mmHg 131.6 cm/sec MV E/A: 1.8 MV dec slope: 1110 cm/sec2 PA V2 max: PI end-d faraz: TR max faraz: MV P1/2t-pr_phl: 81.4 cm/sec 124.1 cm/sec 287.0 cm/sec 68.6 msec PA max P.7 mmHg TR max P.9 mmHg Left Ventricle The left ventricle is normal in size. There is moderate concentric left ventricular hypertrophy. Left ventricular systolic function is normal. The Ejection Fraction estimate is 55-60%. LV diastolic function not assessed. Septal motion is consistent with post-operative state. Right Ventricle The right ventricle is normal in size and function. Atria The right atrium is mild to moderately dilated. The left atrium is borderline dilated. Interarterial septum not well visualized and not well dopplered. Cannot comment on ASD/PFO presence. Mitral Valve There is a mild amount of mitral regurgitation. The prosthetic mitral valve is well-seated. There is a bioprosthetic mitral valve. Aortic Valve The aortic valve opens well. There is no aortic valvular vegetation. There is no aortic valve stenosis. No aortic regurgitation is present. Tricuspid Valve There is no tricuspid valve vegetation. ? Flail tricuspid valve. There is no tricuspid stenosis. There is a moderate to severe amount of tricuspid regurgitation. Right ventricular systolic pressure is estimated to be elevated at 30-40mmHg. There is moderate pulmonary hypertension by echo. Pulmonic Valve The pulmonic valve is normal in structure and function. There is no pulmonic valvular stenosis. There is a mild amount of pulmonic regurgitation. Great Vessels The aortic root is normal size. The inferior vena cava appeared dilated and decreased < 50% with respiration (RAP 15-20 mmHg). Effusions There is no pericardial effusion. Incidental Findings Ascites noted. : DIXON HURTADO Anil
[2020-07-25] MEDS ORDERED: FUROSEMIDE 20 MG TABLET PO SCH (18:00)
--- NOTE | 2020-07-25 19:33 | RADIOLOGY REPORT (SQ) ---
EXAM DESCRIPTION: CTA CHEST IMAGES COMPLETED DATE/TIME: 07/25/2020 5:19 pm REASON FOR STUDY: Persistent hypoxia, rule out PE. Elevated D-dimer. COMPARISON: 05/27/2020. Chest radiograph same date. Chest radiograph 07/16/2020. TECHNIQUE: CT scan of the chest performed using helical scanning technique with dynamic intravenous contrast injection. Images reviewed with lung, soft tissue and bone windows. Reconstructed coronal and sagittal MPR images reviewed. Additional 3 dimensional post-processing performed to develop Maximal Intensity Projection images (LA P). All images stored on PACS. All CT scanners at this facility use dose modulation, iterative reconstruction, and/or weight based d osing when appropriate to reduce radiation dose to as low as reasonably achievable (ALARA). [facility]: Dose Right [facility]: CareDose [facility]: Dose Right [facility]: Teradose 4D [facility]: Qubit CONTRAST TYPE AND DOSE: contrast/concentration: Isovue 350.00 mmol/ml; Total Contrast Delivered: 75. 0 ml; Total Saline Delivered: 73.0 ml Contrast bolus optimized for the pulmonary arteries. Not diagnostic for the aorta. RENAL FUNCTION: GFR > 60. RADIATION DOSE: CT Rad equipment meets quality standard of care and radiation dose reduction technBeijing Booksir ues were employed. CTDIvol: 9.9 - 20.2 mGy. DLP: 666 mGy-cm. . LIMITATIONS: None. FINDINGS: LUNGS AND PLEURA: Moderate right pleural effusion and trace left effusion, new from prior CT. Compressive atelectasis/ consolidation at the right lung base. Respiratory motion obscures some detail. The previously described round mass in the right lower lobe is not definitely identified on today's examination possibly obscured by the effusion. No pneumothorax. . AORTA AND GREAT VESSELS: No aneurysm. Contrast bolus not optimized for the aorta. HEART: Mild cardiomegaly. Small pericardial effusion. Mitral valve replacement. No significant rae nary artery calcifications. PULMONARY ARTERIES: Respiratory motion obscures detail. There is no large central pulmonary embolism . Right and left pulmonary arteries are patent. Lobar pulmonary arteries are fairly well visualized and demonstrate no filling defects. Segmental and subsegmental pulmonary arteries are poorly evalua erica. HILAR AND MEDIASTINAL STRUCTURES: There are enlarged mediastinal and hilar lymph nodes, similar in ap pearance to previous. HARDWARE: Left PICC with tip in the right atrium. UPPER ABDOMEN: No significant findings. Limited exam. THYROID AND OTHER SOFT TISSUES: No masses. No adenopathy. BONES: Median sternotomy wires are intact. No suspicious bone lesions. 3D MIPS: Confirm above findings. OTHER: No other significant finding. IMPRESSION: 1. Respiratory motion obscures detail. There is no central pulmonary embolism in the pulmonary or lo bar pulmonary arteries. Cannot exclude a distal pulmonary embolus in the segmental and subsegmental pulmonary arteries. 2. Moderate right and trace left effusion, stable from radiograph. Compressive atelectasis/consolida tion at the right lung base. 3. Postoperative changes of CABG. Mitral valve repair. COMMENT: Quality ID # [id number]: Final reports with documentation of one or more dose reduction techniques (e.g., Automated exposure control, adjustment of the mA and/or kV according to patient size, use of iterative reconstruction technique) TECHNICAL DOCUMENTATION: JOB ID: [id number] 2010 [email or web address]- All Rights Reserved Reading location - IP/workstation name: [email or web address]
[2020-07-25] MEDS: MELATONIN 3 MG TABLET PO SCH (21:11)
[2020-07-25] MEDS: TRAZODONE HCL 50 MG TABLET PO SCH (21:13)
[2020-07-25] MEDS: PHARMACY COMMUNICATION ORDER MC SCH (21:14)
[2020-07-26] MEDS: ALBUTEROL SULFATE HFA (90 MCG/PUFF) 8 GM MDI IH SCH ×4 (03:44→17:14)
[2020-07-26] MEDS: CYCLOBENZAPRINE HCL 10 MG TABLET PO SCH ×3 (05:10→21:48)
[2020-07-26] MEDS: GABAPENTIN 300 MG CAPSULE PO SCH ×3 (05:10→21:53)
[2020-07-26] MEDS: VANCOMYCIN HCL 1,000 MG in DEXTROSE 5%-WATER 250 ML IV SCH ×2 (05:11→17:12)
[2020-07-26] MEDS: INSULIN LISPRO 100 UNIT/ML 3 ML VIAL SUBCUT SCH ×7 (07:56→21:49)
[2020-07-26] MEDS: INSULIN NPH (ISOPHANE), HUMAN 100 UNIT/ML 3 ML SUBCUT SCH ×2 (07:57→17:14)
--- NOTE | 2020-07-26 08:16 | PDOC CONSULTATION ---
Consultation Consult Date: 07/26/20 Attending physician:: DIXON HURTADO Provider Consulted: JOSESITO ORLANDO Consult reason:: HF History of Present Illness Admission Date/PCP: 07/11/20 23:48 History of Present Illness: ИВАН MONTELONGO is a 35 year old female with history of IV drug abuse who is consulted to our service for evaluation of heart failure. Review of her chart demonstrates that she has had a very prolonged course in this facility. She was initially admitted on 05/19/2020 for mental status changes. She was eventually found to be bacteremic and was diagnosed with mitral valve endocarditis. She was transferred to [facility] on 06/06/2020 and underwent mitral valve replacement with a bioprosthetic valve specifically a 27 mm magna ease on 06/16/2020. She was transferred back to our facility on 07/12/2020 to complete course of IV antibiotics. Since then she has had a pretty much an uneventful clinical course however she had not been able to be weaned off of oxygen. On 07/25/2020 she complained of persistent abdominal distention as well as dyspnea on exertion. At BNP at that time was elevated at 3460 and she was begun on Lasix 20 mg IV twice daily. A transthoracic echocardiogram was repeated on 07/25/2020 revealing an ejection fraction between 55 and 60% with moderate to severe TR among other findings. Her chest CTA demonstrated a moderate right pleural effusion with trace left pleural effusion, compressive atelectasis versus consolidation of the right lung base, mild cardiomegaly and a small pericardial effusion. Unfortunately not urinary output has been recorded since she came back from [place] however she has been getting up to 2 L of fluid daily. This morning she continues to have some dyspnea on exertion that, a ccording to her description, appears to be complicated and worsened by anxiety. She denies chest pain. Of note, when I came to the room to evaluate her I noticed the presence of a vaping device on the bed, she was told she was not allowed to have the device while in the hospital and she proceeded to put it in her purse stating that her mother will come and get it later today. The nursing staff was made aware of this finding. Physical exam on 07/26/2020: GENERAL: Pleasant and conversational. Oriented x3 with normal mood. Not in acute distress. Well groomed and well developed. HEENT: Normocephalic, atraumatic. Pupils equal. Sclerae anicteric. Oropharynx moist. NECK: No JVD. No carotid bruits. LUNGS: Clear to auscultation bilaterally. Normal respiratory effort without the use of accessory muscles or intercostal retractions. CARDIOVASCULAR: Regular rate and rhythm, normal S1 and S2 without murmurs, rubs, or gallops. PMI not displaced. ABDOMEN: No masses or tenderness to palpation. No bruit. No splenomegaly or hepatomegaly. No abdominal aorta bruit noted. EXTREMITIES: Trace to 1+ pitting edema bilaterally, no cyanosis, no clubbing. +2 pulses femoral and pedal pulses bilaterally. SKIN: No lesions or rashes. MUSCULOSKELETAL: No chest tenderness to palpation. NEUROLOGIC: Nonfocal. No gross sensory or motor deficits bilateral upper or lower extremities. Past Medical History Cardiac Medical History: Denies: Coronary Artery Disease, Myocardial Infarction, Hypertension Pulmonary Medical History: Reports: Asthma Denies: Bronchitis, Chronic Obstructive Pulmonary Disease (COPD), Pneumonia Neurological Medical History: Reports: Migraine, Seizures - BLOOD SUGAR GOT TOO LOW Endocrine Medical History: Reports: Diabetes Mellitus Type 1 GI Medical History: Reports: Gastroesophageal Reflux Disease, Ulcerative Colitis Musculoskeltal Medical History: Reports: Fibromyalgia Denies: Arthritis Psychiatric Medical History: Reports: Depression Traumatic Medical History: Reports: Pneumothorax Hematology: Reports: Anemia Denies: Sickle Cell Disease Past Surgical History Past Surgical History: Reports: Section - x1, Tubal Ligation Denies: Pacemaker Social History Smoking Status: Current Every Day Smoker Frequency of Alcohol Use: None Hx Recreational Drug Use: No Drugs: Cocaine, Heroin, Ecstasy, Other Hx Prescription Drug Abuse: Yes - xanax Family History Family History: COPD, DM, Malignancy Parental Family History Reviewed: Yes Children Family History Reviewed: Yes Sibling(s) Family History Reviewed.: Yes Medication/Allergy Home Medications: Buprenorphine HCl 8 mg SL BID 05/19/20 Lidocaine [Lidocaine Pain Relief] 1 patch TOP DAILY 06/07/20 Gabapentin [Neurontin 300 mg Capsule] 300 mg PO Q8 capsule 06/13/20 Heparin Sodium,Porcine [Heparin Inj 5,000 Units/ml 1 ml Vial] 5,000 unit SUBCUT Q8 vial 06/13/20 Nicotine [Nicoderm 21 mg/24 Hr Transderm Patch] 1 each TD DAILY patch.td24 06/13/20 Normal Saline [NaCl 0.9% Inj/Pf 10 ml Sdv] 10 ml IV .AFTER EACH USE PRN vial 06/13/20 Paroxetine HCl [Paxil 20 mg Tablet] 20 mg PO DAILY tablet 06/13/20 Acetaminophen [Tylenol 325 mg Tablet] 500 mg PO Q6HP PRN 07/12/20 Aspirin [Ecotrin 81 mg EC Tablet] 81 mg PO DAILY 07/12/20 Bisacodyl [Dulcolax 5 Mg Tablet] 10 mg PO DAILY 07/12/20 Cyclobenzaprine HCl [Flexeril 10 mg Tablet] 10 mg PO TID 07/12/20 Docusate Sodium [Colace 100 mg Capsule] 100 mg PO BID 07/12/20 Famotidine [Acid Controller] 20 mg PO DAILY 07/12/20 Furosemide [Lasix] 40 mg PO DAILY 07/12/20 Hydroxyzine HCl [Atarax 10 mg Tablet] 25 mg PO Q6 PRN 07/12/20 Insulin Lispro [Humalog Insulin (Lispro) 100 unit/mL] 8 unit SUBCUT AC 07/12/20 Mag Hydrox/Al Hydrox/Simeth [Maalox Plus Susp 30 Udcup] 30 ml PO Q6 PRN 07/12/20 Magnesium Oxide 800 mg PO DAILY 07/12/20 Melatonin [Melatonin 3 mg Tablet] 9 mg PO QHS 07/12/20 NPH, Human Insulin Isophane [Humulin N (NPH) Insulin 100 unit/mL] 10 units SUBCUT Q12 07/12/20 Paroxetine HCl [Paxil 20 mg Tablet] 20 mg PO DAILY 07/12/20 Polyethylene Glycol 3350 [Miralax Powder 17 gm/Packet] 17 g PO DAILY 07/12/20 Trazodone HCl [Desyrel 50 mg Tablet] 50 mg PO QHS 07/12/20 Vancomycin HCl [Vancocin Inj 1000 mg Vial] 1,000 mg IV Q12 07/12/20 Allergies/Adverse Reactions: infliximab [From Remicade] Allergy (Severe, Verified 05/19/20 12:43) Anaphylaxis clindamycin [Clindamycin] Allergy (Verified 05/19/20 12:43) sulfamethoxazole [From Bactrim] Allergy (Verified 05/19/20 12:43) trimethoprim [From Bactrim] Allergy (Verified 05/19/20 12:43) codeine [Codeine] Adverse Reaction (Mild, Verified 05/19/20 12:43) NSAIDS (Non-Steroidal Anti-Inflamma Adverse Reaction (Verified 05/19/20 12:43) Physical Exam Vital Signs: Temp Pulse Resp BP Pulse Ox 97.5 F 74 18 111/63 97 07/26/20 00:02 07/26/20 00:02 07/26/20 00:02 07/26/20 00:02 07/26/20 00:02 Intake & Output 07/25/20 07/26/20 07/27/20 06:59 06:59 06:59 Intake Total 1491 1516 Balance 1491 1516 Weight 87.8 kg 87.9 kg Results Laboratory Results: 07/21/20 13:50 07/25/20 14:15 07/25/20 14:15 Sodium 134.6 L Potassium 4.8 Chloride 93 L Carbon Dioxide 33 H Anion Gap 9 BUN 18 Creatinine 0.92 Est GFR ( Amer) > 60 Glucose 288 H Calcium 9.3 07/16/20 07/25/20 05:02 11:58 Creatine Kinase 25 L NT-Pro-B Natriuret Pep 3460 H Impressions: Abdomen Ultrasound 07/24/20 00:00 IMPRESSION: NO EVIDENCE FOR ASCITES. Chest X-Ray 07/25/20 00:00 IMPRESSION: Stable mild right basilar pleural effusion and associated atelectasis. Stable enlarged cardiac silhouette. Chest/Abdomen CTA 07/25/20 00:00 IMPRESSION: 1. Respiratory motion obscures detail. There is no central pulmonary embolism in the pulmonary or lobar pulmonary arteries. Cannot exclude a distal pulmonary embolus in the segmental and subsegmental pulmonary arteries. 2. Moderate right and trace left effusion, stable from radiograph. Compressive atelectasis/consolidation at the right lung base. 3. Postoperative changes of CABG. Mitral valve repair. Current Medication List Generic Name Dose Route Start Last Admin Trade Name Freq PRN Reason Stop Dose Admin Acetaminophen 325 mg 07/12/20 02:06 07/25/20 09:14 Acetaminophen 325 Mg Tablet PO 08/11/20 02:05 325 mg Q4HP PRN Administration FEVER >101 Albuterol 2 puff 07/22/20 13:00 07/26/20 05:15 Albuterol Sulfate Hfa (90 Mcg/Puff) 8 Gm Mdi IH 08/21/20 12:59 2 puff Q6 RACIEL Administration Albuterol/Ipratropium 3 ml 07/12/20 02:06 Ipratropium/Albuterol 0.5-2.5 Mg/3 Ml Ampul NEB 08/11/20 02:05 RTQ6HP PRN SHORTNESS OF BREATH Aspirin 81 mg 07/12/20 10:00 07/25/20 09:15 Aspirin 81 Mg Tablet, Ent Coated PO 08/11/20 09:59 81 mg DAILY RACIEL Administration Bisacodyl 10 mg 07/12/20 02:15 Bisacodyl 5 Mg Tabec PO 08/11/20 02:14 PRN RACIEL Buprenorphine HCl 8 mg 07/19/20 22:00 07/25/20 21:11 Buprenorphine Hcl 2 Mg Sublingual Tablet SL 08/02/20 21:59 8 mg Q12 RACIEL Administration Cyclobenzaprine HCl 10 mg 07/12/20 06:00 07/26/20 05:10 Cyclobenzaprine Hcl 10 Mg Tablet PO 08/11/20 05:59 10 mg Q8 RACIEL Administration Dextrose 25 gm 07/12/20 02:17 Dextrose 50%-Water 25 Gm/50 Ml Disp.Syrin IV 08/11/20 02:16 PRN PRN PER PROTOCOL Protocol Dextrose 12.5 gm 07/12/20 02:17 Dextrose 50%-Water 25 Gm/50 Ml Disp.Syrin IV 08/11/20 02:16 PRN PRN FOR BG 50-69 IN ALERT PATIENT Protocol Dicyclomine HCl 10 mg 07/23/20 07:44 07/25/20 17:21 Dicyclomine Hcl 10 Mg Capsule PO 08/22/20 07:43 10 mg QIDP PRN Administration ABDOMINAL CRAMPING Docusate Sodium 100 mg 07/12/20 10:00 07/25/20 09:15 Docusate Sodium 100 Mg Capsule PO 08/11/20 09:59 100 mg DAILY RACIEL Administration Enoxaparin Sodium 40 mg 07/12/20 10:00 07/25/20 09:18 Enoxaparin Sodium Inj 40 Mg/0.4 Ml Disp.Syrin SUBCUT 08/11/20 09:59 40 mg DAILY RACIEL Administration Famotidine 20 mg 07/12/20 10:00 07/25/20 21:12 Famotidine 20 Mg Tablet PO 08/11/20 09:59 20 mg Q12 RACIEL Administration Furosemide 30 mg 07/26/20 10:00 Furosemide Inj/Pf 20 Mg/2 Ml Sdv IV 08/25/20 09:59 Q12 RACIEL Gabapentin 600 mg 07/19/20 14:00 07/26/20 05:10 Gabapentin 300 Mg Capsule PO 08/18/20 13:59 600 mg Q8 RACIEL Administration Glucagon 1 mg 07/12/20 02:17 Glucagon,Human Recomb 1 Mg Inj IM 08/11/20 02:16 PRN PRN Evaluate for BG < 70 Protocol Glucose 15 gm 07/12/20 02:17 Dextrose 40% Gel 15 Gm Tube PO 08/11/20 02:16 PRN PRN FOR BG 50-69 IN ALERT PATIENT Protocol Glucose 30 gm 07/12/20 02:17 Dextrose 40% Gel 15 Gm Tube PO 08/11/20 02:16 PRN PRN FOR BG < 50 IN ALERT PATIENT Protocol Heparin Sodium (Porcine) 30 unit 07/13/20 22:00 07/25/20 21:13 Heparin Sod 10 Unit/Ml 5 Ml Syr (Scheduled) IV 08/12/20 21:59 30 unit Q12 RACIEL Administration Heparin Sodium (Porcine) 30 unit 07/13/20 18:30 07/23/20 10:50 Heparin Sod 10 Unit/Ml 5 Ml Syr (After Each Use) IV 08/12/20 18:29 30 unit .AFTER EACH USE PRN Administration Hydroxyzine Pamoate 25 mg 07/14/20 11:31 07/23/20 18:23 Hydroxyzine Pamoate 25 Mg Capsule PO 08/13/20 11:30 25 mg Q6HP PRN Administration ITXHING Vancomycin HCl 1,000 mg/ 250 mls @ 166.667 mls/hr 07/12/20 06:00 07/26/20 05:11 Dextrose IV 07/29/20 05:59 167 mls/hr Q12A RACIEL Administration Insulin Human Lispro 0 - 12 unit 07/12/20 08:00 07/26/20 07:56 Insulin Lispro 100 Unit/Ml 3 Ml Vial SUBCUT 08/11/20 07:59 4 unit ACHS RACIEL Administration Protocol Insulin Human Lispro 6 unit 07/12/20 16:00 07/26/20 07:56 Insulin Lispro 100 Unit/Ml 3 Ml Vial SUBCUT 08/11/20 15:59 6 unit AC RACIEL Administration Insulin Human NPH 10 unit 07/12/20 08:00 07/26/20 07:57 Insulin Nph (Isophane), Human 100 Unit/Ml 3 Ml SUBCUT 08/11/20 07:59 10 unit BIDACBS RACIEL Administration Lidocaine 1 patch 07/12/20 10:00 07/25/20 09:18 Lidocaine 5% (700 Mg) Transdermal Adh..Patch TOP 08/11/20 09:59 1 patch DAILY RACIEL Administration Magnesium Hydroxide 30 ml 07/12/20 02:06 Magnesium Hydroxide Susp 30 Ml Udcup PO 08/11/20 02:05 HSP PRN FOR CONSTIPATION Magnesium Oxide 800 mg 07/12/20 10:00 07/25/20 09:14 Magnesium Oxide 400 Mg Tablet PO 08/11/20 09:59 800 mg DAILY RACIEL Administration Melatonin 9 mg 07/12/20 22:00 07/25/20 21:11 Melatonin 3 Mg Tablet PO 08/11/20 21:59 9 mg QHS RACIEL Administration Metoprolol Succinate 25 mg 07/20/20 10:00 07/25/20 09:15 Metoprolol Succinate 25 Mg Tab.Sr.24h PO 08/19/20 09:59 25 mg DAILY RACIEL Administration Multivitamins 1 tab 07/21/20 10:00 07/25/20 09:15 Multivitamin Tablet PO 08/20/20 09:59 1 tab DAILY RACIEL Administration Nicotine 1 each 07/12/20 10:00 07/25/20 09:16 Nicotine 21 Mg/24 Hr Patch.Td24 TD 08/11/20 09:59 1 each DAILY RACIEL Administration Ondansetron HCl 4 mg 07/14/20 14:30 07/18/20 12:04 Ondansetron 4 Mg Tab.Rapdis PO 08/11/20 02:05 4 mg Q4HP PRN Administration FOR NAUSEA/VOMITING Ondansetron HCl 4 mg 07/14/20 14:30 Ondansetron Hcl Inj/Pf 4 Mg/2 Ml Sdv IV 08/11/20 02:05 Q4HP PRN FOR NAUSEA/VOMITING Paroxetine HCl 20 mg 07/12/20 10:00 07/25/20 09:15 Paroxetine Hcl 20 Mg Tablet PO 08/11/20 09:59 20 mg DAILY RACIEL Administration Pharmacy Profile Note 1 each 07/14/20 22:00 07/25/20 21:14 Pharmacy Communication Order 08/13/20 21:59 Not Given QHS RACIEL Polyethylene Glycol 17 gm 07/13/20 10:00 07/25/20 09:18 Polyethylene Glycol 3350 Powder 17 Gm/1 Packet PO 08/12/20 09:59 Not Given DAILY RACIEL Promethazine HCl 12.5 mg 07/14/20 14:30 Promethazine Hcl Inj 25 Mg/1 Ml Vial IV 08/11/20 02:05 Q4HP PRN FOR UNRESOLVED NAUSEA/VOMITING Simethicone 120 mg 07/24/20 11:29 07/25/20 09:16 Simethicone 80 Mg Tab.Chew PO 08/23/20 11:28 120 mg QIDP PRN Administration FOR GAS (FLATULENCE) Sodium Chloride 10 ml 07/13/20 22:00 07/25/20 21:14 Normal Saline 10 Ml Sdv (Scheduled) IV 08/12/20 21:59 10 ml Q12 RACIEL Administration Sodium Chloride 10 ml 07/13/20 18:30 07/22/20 08:01 Normal Saline 10 Ml Sdv (After Each Use) IV 08/12/20 18:29 10 ml .AFTER EACH USE PRN Administration Spironolactone 50 mg 07/17/20 10:00 07/25/20 09:15 Spironolactone 25 Mg Tablet PO 08/16/20 09:59 50 mg DAILY RACIEL Administration Trazodone HCl 50 mg 07/12/20 22:00 07/25/20 21:13 Trazodone Hcl 50 Mg Tablet PO 08/11/20 21:59 50 mg QHS RACIEL Administration Discontinued Medications Generic Name Dose Route Start Last Admin Trade Name Freq PRN Reason Stop Dose Admin Buprenorphine HCl 8 mg 07/12/20 10:00 07/18/20 22:30 Buprenorphine Hcl 2 Mg Sublingual Tablet SL 07/19/20 09:59 8 mg Q12 RACIEL Administration Buprenorphine HCl 8 mg 07/19/20 14:00 07/19/20 15:01 Buprenorphine Hcl 2 Mg Sublingual Tablet SL 07/19/20 14:01 8 mg NOW ONE Administration Furosemide 40 mg 07/12/20 10:00 07/16/20 10:15 Furosemide 40 Mg Tablet PO 08/11/20 09:59 40 mg DAILY RACIEL Administration Furosemide 20 mg 07/17/20 10:00 07/25/20 09:14 Furosemide 20 Mg Tablet PO 08/16/20 09:59 20 mg DAILY RACIEL Administration Furosemide 20 mg 07/25/20 18:00 Furosemide 20 Mg Tablet PO 08/24/20 17:59 BID RACIEL Furosemide 10 mg 07/25/20 14:00 07/25/20 21:13 Furosemide Inj/Pf 20 Mg/2 Ml Sdv IV 08/24/20 13:59 10 mg Q12 RACIEL Administration Gabapentin 300 mg 07/12/20 06:00 07/14/20 06:42 Gabapentin 300 Mg Capsule PO 08/11/20 05:59 300 mg Q8 RACIEL Administration Gabapentin 400 mg 07/14/20 14:00 07/19/20 05:01 Gabapentin 400 Mg Capsule PO 08/13/20 13:59 400 mg Q8 RACIEL Administration Hydroxyzine HCl 25 mg 07/12/20 02:10 07/13/20 21:26 Hydroxyzine Hcl 10 Mg Tablet PO 08/11/20 02:09 25 mg Q6HP PRN Administration ITCHING Insulin Human Lispro 8 unit 07/12/20 08:00 07/13/20 07:42 Insulin Lispro 100 Unit/Ml 3 Ml Vial SUBCUT 08/11/20 07:59 Not Given AC RACIEL Metformin HCl 500 mg 07/12/20 08:00 Metformin Hcl 500 Mg Tablet PO 08/11/20 07:59 BIDACBS RACIEL Metoprolol Succinate 25 mg 07/16/20 18:45 07/19/20 10:42 Metoprolol Succinate 25 Mg Tab.Sr.24h PO 08/15/20 18:44 25 mg DAILY RACIEL Administration Ondansetron HCl 4 mg 07/12/20 02:06 Ondansetron 4 Mg Tab.Rapdis PO 08/11/20 02:05 Q4HP PRN FOR NAUSEA/VOMITING Ondansetron HCl 4 mg 07/12/20 02:06 Ondansetron Hcl Inj/Pf 4 Mg/2 Ml Sdv IV 08/11/20 02:05 Q4HP PRN FOR NAUSEA/VOMITING Promethazine HCl 12.5 mg 07/12/20 02:06 Promethazine Hcl Inj 25 Mg/1 Ml Vial IV 08/11/20 02:05 Q4HP PRN FOR NAUSEA/VOMITING Simethicone 120 mg 07/24/20 12:30 07/24/20 12:10 Simethicone 80 Mg Tab.Chew PO 07/24/20 12:31 120 mg NOW ONE Administration Sitagliptin Phosphate 50 mg 07/12/20 08:00 Sitagliptin Phosphate 50 Mg Tablet PO 08/11/20 07:59 BIDACBS RACIEL Spironolactone 50 mg 07/14/20 11:30 07/15/20 09:49 Spironolactone 25 Mg Tablet PO 08/13/20 11:29 50 mg DAILY RACIEL Administration Spironolactone 100 mg 07/16/20 10:00 07/16/20 10:14 Spironolactone 25 Mg Tablet PO 08/15/20 09:59 100 mg DAILY RACIEL Administration Temazepam 15 mg 07/12/20 02:06 Temazepam 15 Mg Capsule PO 07/19/20 02:05 HSP PRN SLEEP OR INSOMNIA Vancomycin HCl Confirm 07/12/20 04:58 07/12/20 06:07 Vancomycin Hcl Inj 1000 Mg Vial Administered 07/12/20 04:59 Not Given Dose 1,000 mg .ROUTE .STK-MED ONE 07/21/20 13:50 07/25/20 14:15 MCV 83 fl (80-97) 07/21/20 13:50 MCH 29.3 pg (27.0-33.4) 07/21/20 13:50 MCHC 35.1 g/dL (32.0-36.0) 07/21/20 13:50 RDW 16.7 % (11.5-14.0) H 07/21/20 13:50 Seg Neutrophils % 60.1 % (42-78) 07/21/20 13:50 Chloride 93 mmol/L (98-107) L 07/25/20 14:15 Carbon Dioxide 33 mmol/L (22-30) H 07/25/20 14:15 Anion Gap 9 (5-19) 07/25/20 14:15 Est GFR ( Amer) > 60 (>60) 07/25/20 14:15 Glucose 288 mg/dL (75-110) H 07/25/20 14:15 Calcium 9.3 mg/dL (8.4-10.2) 07/25/20 14:15 Magnesium 1.9 mg/dL (1.6-2.3) 07/13/20 05:54 Total Bilirubin 0.5 mg/dL (0.2-1.3) 07/21/20 13:50 AST 15 U/L (14-36) 07/21/20 13:50 Alkaline Phosphatase 129 U/L (38-126) H 07/21/20 13:50 C-Reactive Protein 37.4 mg/L (<10.0) H 07/13/20 05:54 Total Protein 7.7 g/dL (6.3-8.2) 07/21/20 13:50 Albumin 3.7 g/dL (3.5-5.0) 07/21/20 13:50 Urine Color STRAW 07/21/20 13:53 Urine Appearance SLIGHTLY-CLOUDY 07/21/20 13:53 Urine pH 7.0 (5.0-9.0) 07/21/20 13:53 Ur Specific [place] 1.006 07/21/20 13:53 Urine Protein NEGATIVE mg/dL (NEGATIVE) 07/21/20 13:53 Urine Glucose (UA) NEGATIVE mg/dL (NEGATIVE) 07/21/20 13:53 Urine Ketones NEGATIVE mg/dL (NEGATIVE) 07/21/20 13:53 Urine Blood NEGATIVE (NEGATIVE) 07/21/20 13:53 Urine Nitrite NEGATIVE (NEGATIVE) 07/16/20 10:30 Ur Leukocyte Esterase NEGATIVE (NEGATIVE) 07/16/20 10:30 Urine WBC (Auto) 1 /HPF 07/16/20 10:30 Urine RBC (Auto) 0 /HPF 07/21/20 13:53 07/16/20 07/25/20 05:02 11:58 Creatine Kinase 25 L NT-Pro-B Natriuret Pep 3460 H Assessment & Plan - Diagnosis (1) Heart failure with preserved ejection fraction, NYHA class II Is this a current diagnosis for this admission?: Yes Plan: The patient does have mild lower extremity edema and has been receiving a significant amount of fluids during this hospitalization. Her dyspnea is complicated by her anxiety and it is difficult to assess how much of her dyspnea is from heart failure versus anxiety. Recommendations: -Continue diuresis with current doses of Lasix -Restrict fluid intake to 1500 cc daily. -Low sodium diet, less than 1500 mg daily. -Strict intake and output. -Daily weights. -Daily BMP and magnesium and replace electrolytes as needed. (2) Mitral valve replaced Is this a current diagnosis for this admission?: Yes Plan: Secondary to mitral valve endocarditis. Her most recent echocardiogram demonstrated at stable valve. Recommendations: -Continue with current medical management. (3) Endocarditis due to methicillin susceptible Staphylococcus aureus (MSSA) Is this a current diagnosis for this admission?: Yes Plan: The patient has been afebrile and only has a few more days to finish her antibiotic course. Recommendations: -Further treatment per ID and hospitalist team plan.
[2020-07-26] MEDS: POLYETHYLENE GLYCOL 3350 POWDER 17 GM/1 PACKET PO SCH (10:43)
[2020-07-26] MEDS: DOCUSATE SODIUM 100 MG CAPSULE PO SCH (10:44)
[2020-07-26] MEDS: SPIRONOLACTONE 25 MG TABLET PO SCH (10:44)
[2020-07-26] MEDS: NICOTINE 21 MG/24 HR PATCH.TD24 TD SCH (10:44)
[2020-07-26] MEDS: MAGNESIUM OXIDE 400 MG TABLET PO SCH (10:45)
[2020-07-26] MEDS: FAMOTIDINE 20 MG TABLET PO SCH ×2 (10:45→21:53)
[2020-07-26] MEDS: BUPRENORPHINE HCL 2 MG SUBLINGUAL TABLET SL SCH ×2 (10:45→21:39)
[2020-07-26] MEDS: ASPIRIN 81 MG TABLET, ENT COATED PO SCH (10:45)
[2020-07-26] MEDS: MULTIVITAMIN TABLET PO SCH (10:45)
[2020-07-26] MEDS: METOPROLOL SUCCINATE 25 MG TAB.SR.24H PO SCH (10:45)
[2020-07-26] MEDS: PAROXETINE HCL 20 MG TABLET PO SCH (10:45)
[2020-07-26] MEDS: ENOXAPARIN SODIUM INJ 40 MG/0.4 ML DISP.SYRIN SUBCUT SCH (10:46)
[2020-07-26] MEDS: FUROSEMIDE INJ/PF 20 MG/2 ML SDV IV SCH ×2 (10:46→21:52)
[2020-07-26] MEDS: LIDOCAINE 5% (700 MG) TRANSDERMAL ADH..PATCH TOP SCH (10:47)
[2020-07-26] MEDS: NORMAL SALINE 10 ML SDV (AFTER EACH USE) IV PRN (10:47)
[2020-07-26] MEDS: NORMAL SALINE 10 ML SDV (SCHEDULED) IV SCH ×2 (10:47→21:52)
[2020-07-26] MEDS: HYDROXYZINE PAMOATE 25 MG CAPSULE PO PRN (11:56)
--- NOTE | 2020-07-26 12:33 | PDOC PROGRESS REPORT ---
Subjective Date:: 07/26/20 Subjective:: ИВАН MONTELONGO is a 35 year old female past medical history of IV drug abuse, was admitted to [facility] on 05/19/2020, for altered mental status, found to have MSSA bacteremia, and on 2D echo was noted to have endocarditis with large mitral valve requiring surgery and there is was transferred to [facility] on 06/06/2020. At [facility] cardiac surgery was consulted and patient received bovine mitral valve replacement with 27 mm mitral Magna Ease on 06/16/2020, she is transferred back to [facility] on 07/12/2020 to continue her IV antibiotics till 07/28/2019 which will be 6 weeks from the date of valve replacement on 06/16/2020. On presentation to [facility] patient remained hemodynamically stable, asymptomatic except for minor discomfort at the surgical area. Patient denies any fever, chills, nausea, vomiting, diarrhea, constipation, urinary symptoms, weakness, numbness or any focal neurological symptoms. Stating that she is ambulatory, having normal bowel and bladder movements and is p.o. tolerant. 07/21/2020. No acute events overnight. Complaining of mild dysuria, thinking that she is having UTI, stating that she has history of recurrent UTI and she is afraid that she might be getting another UTI, denies any fever, chills, nausea, vomiting, diarrhea, constipation or any urinary symptoms. 07/22/2020. No acute events overnight. Complaining of sore abdomen and abdominal distention otherwise denies any fever, chills, nausea, vomiting. Ambulatory, having normal bowel and bladder movements. 07/23/2020. No acute events overnight. Still complaining of abdominal distention otherwise denies any fever, chills, nausea, vomiting, diarrhea, constipation or any urinary symptoms, ambulatory, having normal bowel and bladder movements. 07/24/2020. No acute overnight. Still complaining of abdominal distention otherwise denies any fever, chills, nausea, vomiting, diarrhea, constipation or any urinary symptoms, ambulatory, having normal bowel and bladder movements. Repeat abdominal ultrasound negative for any sign of ascites. 07/25/2020. No acute events overnight, patient still complaining of persistent abdominal distention and dyspnea on exertion, I have been trying to wean her off of oxygen but unfortunately if the patient exert herself she gets short of breath still dependent on supplemental oxygen, abdominal ultrasound negative for any ascites but concerning for possible acute CHF, pneumonia or PE. 07/26/2020. No acute events overnight. Patient still complaining of persistent abdominal distention and dyspnea on exertion, still dependent on supplemental oxygen, unfortunately patient was found to be in acute heart failure which could explain her persistent weakness exertion and abdominal distention, this morning patient continues to be in apparent distress, denies any fever, chills, nausea, vomiting, diarrhea, constipation or any urinary symptoms. Reason For Visit: ENDOCARDITIS Physical Exam Vital Signs: Temp Pulse Resp BP Pulse Ox 98.0 F 91 18 105/52 L 100 07/26/20 08:10 07/26/20 07:30 07/26/20 07:30 07/26/20 07:30 07/26/20 07:30 Intake & Output 07/25/20 07/26/20 07/27/20 06:59 06:59 06:59 Intake Total 1491 1516 Balance 1491 1516 Weight 87.8 kg 87.9 kg General appearance: PRESENT: no acute distress, well-developed, well-nourished Head exam: PRESENT: atraumatic, normocephalic Respiratory exam: PRESENT: clear to auscultation brandon. ABSENT: rales, rhonchi, wheezes Cardiovascular exam: PRESENT: RRR. ABSENT: diastolic murmur, rubs, systolic murmur GI/Abdominal exam: PRESENT: distended, normal bowel sounds, soft. ABSENT: guarding, mass, organolmegaly, rebound, tenderness Extremities exam: PRESENT: full ROM. ABSENT: calf tenderness, clubbing, pedal edema Neurological exam: PRESENT: alert, awake, oriented to person, oriented to place, oriented to time, oriented to situation, CN II-XII grossly intact. ABSENT: motor sensory deficit Results Laboratory Results: 07/21/20 13:50 07/25/20 14:15 07/25/20 14:15 Sodium 134.6 L Potassium 4.8 Chloride 93 L Carbon Dioxide 33 H Anion Gap 9 BUN 18 Creatinine 0.92 Est GFR ( Amer) > 60 Glucose 288 H Calcium 9.3 07/16/20 07/25/20 05:02 11:58 Creatine Kinase 25 L NT-Pro-B Natriuret Pep 3460 H Impressions: Abdomen Ultrasound 07/24/20 00:00 IMPRESSION: NO EVIDENCE FOR ASCITES. Chest X-Ray 07/25/20 00:00 IMPRESSION: Stable mild right basilar pleural effusion and associated atelectasis. Stable enlarged cardiac silhouette. Chest/Abdomen CTA 07/25/20 00:00 IMPRESSION: 1. Respiratory motion obscures detail. There is no central pulmonary embolism in the pulmonary or lobar pulmonary arteries. Cannot exclude a distal pulmonary embolus in the segmental and subsegmental pulmonary arteries. 2. Moderate right and trace left effusion, stable from radiograph. Compressive atelectasis/consolidation at the right lung base. 3. Postoperative changes of CABG. Mitral valve repair. Assessment and Plan - Diagnosis (1) Acute CHF (congestive heart failure) Qualifiers: Heart failure type: right-sided Qualified Code(s): I50.811 - Acute right heart failure Is this a current diagnosis for this admission?: Yes Plan: Acute heart failure with preserved ejection fraction. Denies any anginal symptoms. No history of CAD. History of mitral valve replacement due to infective endocarditis. 05/29/2020 BABAK: LVEF normal, ejection fraction more than 55%. 07/25/2020 proBNP:3460 07/25/2020. 2D echo: Ejection fraction 55 to 60%, moderate to severe tricuspid regurgitation. Moderate pulmonary hypertension by echo. Cardiac diet, fluid restriction, strict in and out, IV Lasix, beta blockers. Cardiology consulted. Recommendations noted. (2) Tricuspid regurgitation Qualifiers: Cardiac valve disease etiology: nonrheumatic Qualified Code(s): I36.1 - Nonrheumatic tricuspid (valve) insufficiency Is this a current diagnosis for this admission?: Yes Plan: As per echo reading. Not sure if this is postsurgical complication for recent mitral valve replacement. Chart review shows that patient did have severe tricuspid regurgitation after surgery. 05/20/2020. 2D echo ejection fraction 55 to 60%, mild amount of tricuspid regurgitation. Mild pulmonary hypertension. 07/25/2020. 2D echo: Ejection fraction 55 to 60%, moderate to severe tricuspid regurgitation. Moderate pulmonary hypertension by echo. We will contact to [facility] and talk to cardiovascular surgeon for further recommendations. (3) Endocarditis due to methicillin susceptible Staphylococcus aureus (MSSA) Is this a current diagnosis for this admission?: Yes Plan: Status post mitral valve replacement on 06/16/2020 at [facility]. History of longstanding history IV drug use. As per chart review and previous physician's note: 05/19 Admitted OM for AMS 05/20 TTE showed normal cardiac function, negative for vegetations, mild pulmonary hypertension 05/21 Positive BC MSSA x2 bottles 05/23 Negative BC on Nafcillin 2g q4hr 05/29 BABAK 2.8 x 1 cm posterior leaflet mitral valve vegetation 05/29 Transferred to [facility] Repeat TTE at [facility] large mobile vegetation measuring 3.2x1.4cm with trivial MR. CT surgery scheduled at [facility] for 06/16, transfer back to [facility] 06/15 prior to surgery with Dr. Martinez. Status post bioprosthetic mitral valve replacement with 27 mm magna ease on 06/16/2020. Continue vancomycin at 1000 mg IV twice daily 6 weeks from the day of surgery which was 06/16/2020. Last day of antibiotic therapy 07/28/2019. (4) Septic embolism Is this a current diagnosis for this admission?: Yes Plan: Currently asymptomatic. 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 Patient is stating that she is currently asymptomatic, denies any focal neurological symptoms. Alert and oriented x4, p.o. tolerant, ambulatory having normal bowel bladder movement. Benign neurological examination. As per MRI for on 06/11/2020 Repeat brain MRI w/w/o contrast on 06/11 multiple rim-enhancing lesions within the cerebral hemispheres bilaterally similar which corresponded to previous areas of restricted diffusion, consistent with multifocal septic emboli. A couple of new foci of restricted diffusion in the parietal lobe bilaterally without associated enhancement may represent small bland embolic infarcts. Continue current treatment for endocarditis. Continue antiplatelets. Optimize diabetes control. (5) Diabetes Qualifiers: Diabetes mellitus type: type 2 Diabetes mellitus blast setter insulin use: unspecified blast setter insulin use status Diabetes mellitus complication status: without complication Qualified Code(s): E11.9 - Type 2 diabetes mellitus without complications Is this a current diagnosis for this admission?: Yes Plan: Diabetic diet. Hypoglycemia protocol. Continue home dose Basal and Premeal insulin. Sliding scale insulin. (6) Heroin abuse Is this a current diagnosis for this admission?: Yes Plan: Continue Subutex 8 mg twice daily. Outpatient [facility] the morning following discharge for continued management of substance abuse. (7) Neuropathy Is this a current diagnosis for this admission?: Yes Plan: Complains of worsening paresthesia/neuropathy pain to BLE. Asks to increase gabapentin. Increase gabapentin to 600 mg TID. (8) Sinus tachycardia Is this a current diagnosis for this admission?: Yes Plan: Resolved; HR low to mid 90s. No longer w/ palpitations. Resting room air saturation 96%. Chest x-ray is benign other than a mild right sided pleural effusion and associated atelectasis. Mild cardiomegaly. Chemistry and CBC are reassuring. Continue Toprol 25 mg once daily. (9) Hepatitis C antibody positive in blood Is this a current diagnosis for this admission?: Yes Plan: RUQ U/s revealed hepatomegaly and a right-sided pleural effusion. No comment to ascites. Continue furosemide and spironolactone. Monitor output and electrolytes closely. Outpatient follow-up with GI and/or ID for treatment of hepatitis C. (10) Normocytic normochromic anemia Is this a current diagnosis for this admission?: Yes Plan: Hgb stable. Multivitamin w. iron supplementation. (11) Tobacco abuse Is this a current diagnosis for this admission?: Yes Plan: Unfortunate patient is a current day smoker. Was found to be vaping while in the hospital. Patient extensively counseled on importance of abstaining from tobacco abuse or any form of vaping. NicoDerm patch will be provided. (12) Dyspnea on exertion Is this a current diagnosis for this admission?: Yes Plan: Likely due to acute CHF. 07/25/2020. CTA not optimal due to motion artifact. CTA negative for central pulmonary embolism, or any pulmonary or lobular pulmonary arteries. Not excluded distal pulmonary embolus in the segmental and subsegmental pulmonary arteries. We will repeat CTA tomorrow. - Time Time Spent with patient: 35 or more minutes Anticipated Discharge Disposition: Home, Self Care Anticipated Discharge Timeframe: 0
[2020-07-26] MEDS: TRAZODONE HCL 50 MG TABLET PO SCH (21:47)
[2020-07-26] MEDS: PHARMACY COMMUNICATION ORDER MC SCH (21:50)
[2020-07-26] MEDS: MELATONIN 3 MG TABLET PO SCH (21:51)
[2020-07-27] MEDS: ALBUTEROL SULFATE HFA (90 MCG/PUFF) 8 GM MDI IH SCH ×5 (05:34→23:40)
[2020-07-27] MEDS: VANCOMYCIN HCL 1,000 MG in DEXTROSE 5%-WATER 250 ML IV SCH (05:35)
[2020-07-27] MEDS: GABAPENTIN 300 MG CAPSULE PO SCH ×3 (05:37→23:34)
[2020-07-27] MEDS: CYCLOBENZAPRINE HCL 10 MG TABLET PO SCH ×3 (05:38→23:34)
[2020-07-27 06:31] LABS: VANCOMYCIN,TROUGH 20.2 ug/mL (5.0-20.0)
[2020-07-27] MEDS ORDERED: PHARMACY COMMUNICATION ORDER MC NR (07:30)
--- NOTE | 2020-07-27 07:38 | PDOC PROGRESS REPORT ---
Subjective Date:: 07/27/20 Subjective:: ИВАН MONTELONGO is a 35 year old female with history of IV drug abuse who is co nsulted to our service for evaluation of heart failure. Review of her chart demonstrates that she has had a very prolonged course in this facility. She was initially admitted on 05/19/2020 for mental status changes. She was eventually found to be bacteremic and was diagnosed with mitral valve endocarditis. She was transferred to [facility] on 06/06/2020 and underwent mitral valve replacement with a bioprosthetic valve specifically a 27 mm magna ease on 06/16/2020. She was transferred back to our facility on 07/12/2020 to complete course of IV antibiotics. Since then she has had a pretty much an uneventful clinical course however she had not been able to be weaned off of oxygen. On 07/25/2020 she complained of persistent abdominal distention as well as dyspnea on exertion. At BNP at that time was elevated at 3460 and she was begun on Lasix 20 mg IV twice daily. A transthoracic echocardiogram was repeated on 07/25/2020 revealing an ejection fraction between 55 and 60% with moderate to severe TR among other findings. Her chest CTA demonstrated a moderate right pleural effusion with trace left pleural effusion, compressive atelectasis versus consolidation of the right lung base, mild cardiomegaly and a small pericardial effusion. Unfortunately not urinary output has been recorded since she came back from [place] however she has been getting up to 2 L of fluid daily. This morning she continues to have some dyspnea on exertion that, according to her description, appears to be complicated and worsened by anxiety. She denies chest pain. Of note, when I came to the room to evaluate her I noticed the presence of a vaping device on the bed, she was told she was not allowed to have the device while in the hospital and she proceeded to put it in her purse stating that her mother will come and get it later today. The nursing staff was made aware of this finding. 07/27/2020: The patient had an uneventful night. Daily she has responded well to Lasix and put out 1800 cc of urine however fluid restriction has not been enforced and her intake was a little bit over 2000 cc yesterday. She has no cardiovascular complaints this morning and her telemetry shows normal sinus rhythm without ventricular dysrhythmias. Physical exam on 07/27/2020: GENERAL: Pleasant and conversational. Oriented x3 with normal mood. Not in acute distress. Well groomed and well developed. HEENT: Normocephalic, atraumatic. Pupils equal. Sclerae anicteric. Oropharynx moist. NECK: No JVD. No carotid bruits. LUNGS: Clear to auscultation bilaterally. Normal respiratory effort without the use of accessory muscles or intercostal retractions. CARDIOVASCULAR: Regular rate and rhythm, normal S1 and S2 without murmurs, rubs, or gallops. PMI not displaced. ABDOMEN: No masses or tenderness to palpation. No bruit. No splenomegaly or hepatomegaly. No abdominal aorta bruit noted. EXTREMITIES: No pitting edema bilaterally, no cyanosis, no clubbing. +2 pulses femoral and pedal pulses bilaterally. SKIN: No lesions or rashes. MUSCULOSKELETAL: No chest tenderness to palpation. NEUROLOGIC: Nonfocal. No gross sensory or motor deficits bilateral upper or lower extremities. Reason For Visit: ENDOCARDITIS Physical Exam Vital Signs: Temp Pulse Resp BP Pulse Ox 98.2 F 83 16 114/54 L 98 07/27/20 00:08 07/27/20 00:08 07/27/20 00:08 07/27/20 00:08 07/27/20 01:24 Intake & Output 07/25/20 07/26/20 07/27/20 06:59 06:59 06:59 Intake Total 1491 1766 2196 Output Total 1800 Balance 1491 1766 396 Weight 87.8 kg 87.9 kg 87.8 kg Results Laboratory Results: 07/21/20 13:50 07/16/20 07/25/20 05:02 11:58 Creatine Kinase 25 L NT-Pro-B Natriuret Pep 3460 H Impressions: Abdomen Ultrasound 07/24/20 00:00 IMPRESSION: NO EVIDENCE FOR ASCITES. Chest X-Ray 07/25/20 00:00 IMPRESSION: Stable mild right basilar pleural effusion and associated atelectasis. Stable enlarged cardiac silhouette. Chest/Abdomen CTA 07/25/20 00:00 IMPRESSION: 1. Respiratory motion obscures detail. There is no central pulmonary embolism in the pulmonary or lobar pulmonary arteries. Cannot exclude a distal pulmonary embolus in the segmental and subsegmental pulmonary arteries. 2. Moderate right and trace left effusion, stable from radiograph. Compressive atelectasis/consolidation at the right lung base. 3. Postoperative changes of CABG. Mitral valve repair. 07/21/20 13:50 07/27/20 05:45 MCV 83 fl (80-97) 07/21/20 13:50 MCH 29.3 pg (27.0-33.4) 07/21/20 13:50 MCHC 35.1 g/dL (32.0-36.0) 07/21/20 13:50 RDW 16.7 % (11.5-14.0) H 07/21/20 13:50 Seg Neutrophils % 60.1 % (42-78) 07/21/20 13:50 Chloride 93 mmol/L (98-107) L 07/25/20 14:15 Carbon Dioxide 33 mmol/L (22-30) H 07/25/20 14:15 Anion Gap 9 (5-19) 07/25/20 14:15 Est GFR ( Amer) > 60 (>60) 07/27/20 05:45 Glucose 288 mg/dL (75-110) H 07/25/20 14:15 Calcium 9.3 mg/dL (8.4-10.2) 07/25/20 14:15 Magnesium 1.9 mg/dL (1.6-2.3) 07/13/20 05:54 Total Bilirubin 0.5 mg/dL (0.2-1.3) 07/21/20 13:50 AST 15 U/L (14-36) 07/21/20 13:50 Alkaline Phosphatase 129 U/L (38-126) H 07/21/20 13:50 C-Reactive Protein 37.4 mg/L (<10.0) H 07/13/20 05:54 Total Protein 7.7 g/dL (6.3-8.2) 07/21/20 13:50 Albumin 3.7 g/dL (3.5-5.0) 07/21/20 13:50 Urine Color STRAW 07/21/20 13:53 Urine Appearance SLIGHTLY-CLOUDY 07/21/20 13:53 Urine pH 7.0 (5.0-9.0) 07/21/20 13:53 Ur Specific [place] 1.006 07/21/20 13:53 Urine Protein NEGATIVE mg/dL (NEGATIVE) 07/21/20 13:53 Urine Glucose (UA) NEGATIVE mg/dL (NEGATIVE) 07/21/20 13:53 Urine Ketones NEGATIVE mg/dL (NEGATIVE) 07/21/20 13:53 Urine Blood NEGATIVE (NEGATIVE) 07/21/20 13:53 Urine Nitrite NEGATIVE (NEGATIVE) 07/16/20 10:30 Ur Leukocyte Esterase NEGATIVE (NEGATIVE) 07/16/20 10:30 Urine WBC (Auto) 1 /HPF 07/16/20 10:30 Urine RBC (Auto) 0 /HPF 07/21/20 13:53 07/16/20 07/25/20 05:02 11:58 Creatine Kinase 25 L NT-Pro-B Natriuret Pep 3460 H Current Medication List Generic Name Dose Route Start Last Admin Trade Name Freq PRN Reason Stop Dose Admin Acetaminophen 325 mg 07/12/20 02:06 07/25/20 09:14 Acetaminophen 325 Mg Tablet PO 08/11/20 02:05 325 mg Q4HP PRN Administration FEVER >101 Albuterol 2 puff 07/22/20 13:00 07/27/20 05:34 Albuterol Sulfate Hfa (90 Mcg/Puff) 8 Gm Mdi IH 08/21/20 12:59 2 puff Q6 RACIEL Administration Albuterol/Ipratropium 3 ml 07/12/20 02:06 Ipratropium/Albuterol 0.5-2.5 Mg/3 Ml Ampul NEB 08/11/20 02:05 RTQ6HP PRN SHORTNESS OF BREATH Aspirin 81 mg 07/12/20 10:00 07/26/20 10:45 Aspirin 81 Mg Tablet, Ent Coated PO 08/11/20 09:59 81 mg DAILY RACIEL Administration Bisacodyl 10 mg 07/12/20 02:15 Bisacodyl 5 Mg Tabec PO 08/11/20 02:14 PRN RACIEL Buprenorphine HCl 8 mg 07/19/20 22:00 07/26/20 21:39 Buprenorphine Hcl 2 Mg Sublingual Tablet SL 08/02/20 21:59 8 mg Q12 RACIEL Administration Cyclobenzaprine HCl 10 mg 07/12/20 06:00 07/27/20 05:38 Cyclobenzaprine Hcl 10 Mg Tablet PO 08/11/20 05:59 10 mg Q8 RACIEL Administration Dextrose 25 gm 07/12/20 02:17 Dextrose 50%-Water 25 Gm/50 Ml Disp.Syrin IV 08/11/20 02:16 PRN PRN PER PROTOCOL Protocol Dextrose 12.5 gm 07/12/20 02:17 Dextrose 50%-Water 25 Gm/50 Ml Disp.Syrin IV 08/11/20 02:16 PRN PRN FOR BG 50-69 IN ALERT PATIENT Protocol Dicyclomine HCl 10 mg 07/23/20 07:44 07/25/20 17:21 Dicyclomine Hcl 10 Mg Capsule PO 08/22/20 07:43 10 mg QIDP PRN Administration ABDOMINAL CRAMPING Docusate Sodium 100 mg 07/12/20 10:00 07/26/20 10:44 Docusate Sodium 100 Mg Capsule PO 08/11/20 09:59 100 mg DAILY RACIEL Administration Enoxaparin Sodium 40 mg 07/12/20 10:00 07/26/20 10:46 Enoxaparin Sodium Inj 40 Mg/0.4 Ml Disp.Syrin SUBCUT 08/11/20 09:59 40 mg DAILY RACIEL Administration Famotidine 20 mg 07/12/20 10:00 07/26/20 21:53 Famotidine 20 Mg Tablet PO 08/11/20 09:59 20 mg Q12 RACIEL Administration Furosemide 30 mg 07/26/20 10:00 07/26/20 21:52 Furosemide Inj/Pf 20 Mg/2 Ml Sdv IV 08/25/20 09:59 30 mg Q12 RACIEL Administration Gabapentin 600 mg 07/19/20 14:00 07/27/20 05:37 Gabapentin 300 Mg Capsule PO 08/18/20 13:59 600 mg Q8 RACIEL Administration Glucagon 1 mg 07/12/20 02:17 Glucagon,Human Recomb 1 Mg Inj IM 08/11/20 02:16 PRN PRN Evaluate for BG < 70 Protocol Glucose 15 gm 07/12/20 02:17 Dextrose 40% Gel 15 Gm Tube PO 08/11/20 02:16 PRN PRN FOR BG 50-69 IN ALERT PATIENT Protocol Glucose 30 gm 07/12/20 02:17 Dextrose 40% Gel 15 Gm Tube PO 08/11/20 02:16 PRN PRN FOR BG < 50 IN ALERT PATIENT Protocol Heparin Sodium (Porcine) 30 unit 07/13/20 22:00 07/26/20 21:48 Heparin Sod 10 Unit/Ml 5 Ml Syr (Scheduled) IV 08/12/20 21:59 30 unit Q12 RACIEL Administration Heparin Sodium (Porcine) 30 unit 07/13/20 18:30 07/26/20 10:43 Heparin Sod 10 Unit/Ml 5 Ml Syr (After Each Use) IV 08/12/20 18:29 30 unit .AFTER EACH USE PRN Administration Hydroxyzine Pamoate 25 mg 07/14/20 11:31 07/26/20 11:56 Hydroxyzine Pamoate 25 Mg Capsule PO 08/13/20 11:30 25 mg Q6HP PRN Administration ITXHING Vancomycin HCl 1,000 mg/ 250 mls @ 166.667 mls/hr 07/12/20 06:00 07/27/20 0 5:35 Dextrose IV 07/29/20 05:59 166.67 mls/hr Q12A RACIEL Administration Insulin Human Lispro 0 - 12 unit 07/12/20 08:00 07/26/20 21:49 Insulin Lispro 100 Unit/Ml 3 Ml Vial SUBCUT 08/11/20 07:59 2 unit ACHS RACIEL Administration Protocol Insulin Human Lispro 6 unit 07/12/20 16:00 07/26/20 17:15 Insulin Lispro 100 Unit/Ml 3 Ml Vial SUBCUT 08/11/20 15:59 6 unit AC RACIEL Administration Insulin Human NPH 10 unit 07/12/20 08:00 07/26/20 17:14 Insulin Nph (Isophane), Human 100 Unit/Ml 3 Ml SUBCUT 08/11/20 07:59 10 unit BIDACBS RACIEL Administration Lidocaine 1 patch 07/12/20 10:00 07/26/20 10:47 Lidocaine 5% (700 Mg) Transdermal Adh..Patch TOP 08/11/20 09:59 1 patch DAILY RACIEL Administration Magnesium Hydroxide 30 ml 07/12/20 02:06 Magnesium Hydroxide Susp 30 Ml Udcup PO 08/11/20 02:05 HSP PRN FOR CONSTIPATION Magnesium Oxide 800 mg 07/12/20 10:00 07/26/20 10:45 Magnesium Oxide 400 Mg Tablet PO 08/11/20 09:59 800 mg DAILY RACIEL Administration Melatonin 9 mg 07/12/20 22:00 07/26/20 21:51 Melatonin 3 Mg Tablet PO 08/11/20 21:59 9 mg QHS RACIEL Administration Metoprolol Succinate 25 mg 07/20/20 10:00 07/26/20 10:45 Metoprolol Succinate 25 Mg Tab.Sr.24h PO 08/19/20 09:59 25 mg DAILY RACIEL Administration Multivitamins 1 tab 07/21/20 10:00 07/26/20 10:45 Multivitamin Tablet PO 08/20/20 09:59 1 tab DAILY RACIEL Administration Nicotine 1 each 07/12/20 10:00 07/26/20 10:44 Nicotine 21 Mg/24 Hr Patch.Td24 TD 08/11/20 09:59 1 each DAILY RACIEL Administration Ondansetron HCl 4 mg 07/14/20 14:30 07/18/20 12:04 Ondansetron 4 Mg Tab.Rapdis PO 08/11/20 02:05 4 mg Q4HP PRN Administration FOR NAUSEA/VOMITING Ondansetron HCl 4 mg 07/14/20 14:30 Ondansetron Hcl Inj/Pf 4 Mg/2 Ml Sdv IV 08/11/20 02:05 Q4HP PRN FOR NAUSEA/VOMITING Paroxetine HCl 20 mg 07/12/20 10:00 07/26/20 10:45 Paroxetine Hcl 20 Mg Tablet PO 08/11/20 09:59 20 mg DAILY RACIEL Administration Pharmacy Profile Note 1 each 07/14/20 22:00 07/26/20 21:50 Pharmacy Communication Order 08/13/20 21:59 Not Given QHS RACIEL Pharmacy Profile Note 1 each 07/27/20 07:30 Pharmacy Communication Order 08/26/20 07:29 .NOTICE NR Polyethylene Glycol 17 gm 07/13/20 10:00 07/26/20 10:43 Polyethylene Glycol 3350 Powder 17 Gm/1 Packet PO 08/12/20 09:59 17 gm DAILY RACIEL Administration Promethazine HCl 12.5 mg 07/14/20 14:30 Promethazine Hcl Inj 25 Mg/1 Ml Vial IV 08/11/20 02:05 Q4HP PRN FOR UNRESOLVED NAUSEA/VOMITING Simethicone 120 mg 07/24/20 11:29 07/25/20 09:16 Simethicone 80 Mg Tab.Chew PO 08/23/20 11:28 120 mg QIDP PRN Administration FOR GAS (FLATULENCE) Sodium Chloride 10 ml 07/13/20 22:00 07/26/20 21:52 Normal Saline 10 Ml Sdv (Scheduled) IV 08/12/20 21:59 10 ml Q12 RACIEL Administration Sodium Chloride 10 ml 07/13/20 18:30 07/26/20 10:47 Normal Saline 10 Ml Sdv (After Each Use) IV 08/12/20 18:29 10 ml .AFTER EACH USE PRN Administration Spironolactone 50 mg 07/17/20 10:00 07/26/20 10:44 Spironolactone 25 Mg Tablet PO 08/16/20 09:59 50 mg DAILY RACIEL Administration Trazodone HCl 50 mg 07/12/20 22:00 07/26/20 21:47 Trazodone Hcl 50 Mg Tablet PO 08/11/20 21:59 50 mg QHS RACIEL Administration Discontinued Medications Generic Name Dose Route Start Last Admin Trade Name Jbq PRN Reason Stop Dose Admin Buprenorphine HCl 8 mg 07/12/20 10:00 07/18/20 22:30 Buprenorphine Hcl 2 Mg Sublingual Tablet SL 07/19/20 09:59 8 mg Q12 RACIEL Administration Buprenorphine HCl 8 mg 07/19/20 14:00 07/19/20 15:01 Buprenorphine Hcl 2 Mg Sublingual Tablet SL 07/19/20 14:01 8 mg NOW ONE Administration Furosemide 40 mg 07/12/20 10:00 07/16/20 10:15 Furosemide 40 Mg Tablet PO 08/11/20 09:59 40 mg DAILY RACIEL Administration Furosemide 20 mg 07/17/20 10:00 07/25/20 09:14 Furosemide 20 Mg Tablet PO 08/16/20 09:59 20 mg DAILY RACIEL Administration Furosemide 20 mg 07/25/20 18:00 Furosemide 20 Mg Tablet PO 08/24/20 17:59 BID RACIEL Furosemide 10 mg 07/25/20 14:00 07/25/20 21:13 Furosemide Inj/Pf 20 Mg/2 Ml Sdv IV 08/24/20 13:59 10 mg Q12 RACIEL Administration Gabapentin 300 mg 07/12/20 06:00 07/14/20 06:42 Gabapentin 300 Mg Capsule PO 08/11/20 05:59 300 mg Q8 RACIEL Administration Gabapentin 400 mg 07/14/20 14:00 07/19/20 05:01 Gabapentin 400 Mg Capsule PO 08/13/20 13:59 400 mg Q8 RACIEL Administration Hydroxyzine HCl 25 mg 07/12/20 02:10 07/13/20 21:26 Hydroxyzine Hcl 10 Mg Tablet PO 08/11/20 02:09 25 mg Q6HP PRN Administration ITCHING Insulin Human Lispro 8 unit 07/12/20 08:00 07/13/20 07:42 Insulin Lispro 100 Unit/Ml 3 Ml Vial SUBCUT 08/11/20 07:59 Not Given AC [facility] Metformin HCl 500 mg 07/12/20 08:00 Metformin Hcl 500 Mg Tablet PO 08/11/20 07:59 BIDACBS RACIEL Metoprolol Succinate 25 mg 07/16/20 18:45 07/19/20 10:42 Metoprolol Succinate 25 Mg Tab.Sr.24h PO 08/15/20 18:44 25 mg DAILY RACIEL Administration Ondansetron HCl 4 mg 07/12/20 02:06 Ondansetron 4 Mg Tab.Rapdis PO 08/11/20 02:05 Q4HP PRN FOR NAUSEA/VOMITING Ondansetron HCl 4 mg 07/12/20 02:06 Ondansetron Hcl Inj/Pf 4 Mg/2 Ml Sdv IV 08/11/20 02:05 Q4HP PRN FOR NAUSEA/VOMITING Promethazine HCl 12.5 mg 07/12/20 02:06 Promethazine Hcl Inj 25 Mg/1 Ml Vial IV 08/11/20 02:05 Q4HP PRN FOR NAUSEA/VOMITING Simethicone 120 mg 07/24/20 12:30 07/24/20 12:10 Simethicone 80 Mg Tab.Chew PO 07/24/20 12:31 120 mg NOW ONE Administration Sitagliptin Phosphate 50 mg 07/12/20 08:00 Sitagliptin Phosphate 50 Mg Tablet PO 08/11/20 07:59 BIDACBS [facility] Spironolactone 50 mg 07/14/20 11:30 07/15/20 09:49 Spironolactone 25 Mg Tablet PO 08/13/20 11:29 50 mg DAILY RACIEL Administration Spironolactone 100 mg 07/16/20 10:00 07/16/20 10:14 Spironolactone 25 Mg Tablet PO 08/15/20 09:59 100 mg DAILY RACIEL Administration Temazepam 15 mg 07/12/20 02:06 Temazepam 15 Mg Capsule PO 07/19/20 02:05 HSP PRN SLEEP OR INSOMNIA Vancomycin HCl Confirm 07/12/20 04:58 07/12/20 06:07 Vancomycin Hcl Inj 1000 Mg Vial Administered 07/12/20 04:59 Not Given Dose 1,000 mg .ROUTE .STK-MED ONE Assessment & Plan - Diagnosis (1) Heart failure with preserved ejection fraction, NYHA class II Is this a current diagnosis for this admission?: Yes Plan: Doing much better from the cardiovascular standpoint and without lower extremity edema any longer. She continues to have some dyspnea however I believe this is multifactorial particularly with her lung injuries from endocarditis. She does not appear to be fluid overloaded at this point. Recommendations: -Consider converting the patient to p.o. Lasix. -Restrict fluid intake to 1500 cc daily. -Low sodium diet, less than 1500 mg daily. -Strict intake and output. -Daily weights. -Daily BMP and magnesium and replace electrolytes as needed. -I will arrange for cardiology outpatient follow-up once she is ready to be discharged. -Cardiology will sign off for now, please reconsult if needed. (2) Mitral valve replaced Is this a current diagnosis for this admission?: Yes Plan: Secondary to mitral valve endocarditis. Her most recent echocardiogram demonstrated at stable valve. Recommendations: -Continue with current medical management. (3) Endocarditis due to methicillin susceptible Staphylococcus aureus (MSSA) Is this a current diagnosis for this admission?: Yes Plan: The patient has been afebrile and only has a few more days to finish her antibiotic course. Recommendations: -Further treatment per ID and hospitalist team plan.
[2020-07-27] MEDS: INSULIN LISPRO 100 UNIT/ML 3 ML VIAL SUBCUT SCH ×7 (08:57→23:35)
[2020-07-27] MEDS: INSULIN NPH (ISOPHANE), HUMAN 100 UNIT/ML 3 ML SUBCUT SCH ×2 (08:57→15:46)
[2020-07-27 10:11] LABS: BLOOD UREA NITROGEN 19 mg/dL (7-20); CALCIUM 9.2 mg/dL (8.4-10.2); CARBON DIOXIDE 38 mmol/L (22-30); CHLORIDE 91 mmol/L (98-107); GLUCOSE 218 mg/dL (75-110); POTASSIUM 4.4 mmol/L (3.6-5.0)
[2020-07-27 10:16] LABS: ANION GAP 4 (5-19)
[2020-07-27] MEDS: MULTIVITAMIN TABLET PO SCH (11:43)
[2020-07-27] MEDS: FAMOTIDINE 20 MG TABLET PO SCH ×2 (11:43→23:34)
[2020-07-27] MEDS: ASPIRIN 81 MG TABLET, ENT COATED PO SCH (11:43)
[2020-07-27] MEDS: PAROXETINE HCL 20 MG TABLET PO SCH (11:44)
[2020-07-27] MEDS: ENOXAPARIN SODIUM INJ 40 MG/0.4 ML DISP.SYRIN SUBCUT SCH (11:44)
[2020-07-27] MEDS: METOPROLOL SUCCINATE 25 MG TAB.SR.24H PO SCH (11:44)
[2020-07-27] MEDS: DOCUSATE SODIUM 100 MG CAPSULE PO SCH (11:44)
[2020-07-27] MEDS: MAGNESIUM OXIDE 400 MG TABLET PO SCH (11:45)
[2020-07-27] MEDS: POLYETHYLENE GLYCOL 3350 POWDER 17 GM/1 PACKET PO SCH (11:45)
[2020-07-27] MEDS: NORMAL SALINE 10 ML SDV (SCHEDULED) IV SCH ×2 (11:46→23:37)
[2020-07-27] MEDS: NICOTINE 21 MG/24 HR PATCH.TD24 TD SCH (11:46)
[2020-07-27] MEDS: BUPRENORPHINE HCL 2 MG SUBLINGUAL TABLET SL SCH ×2 (11:47→23:35)
--- NOTE | 2020-07-27 12:23 | PDOC PROGRESS REPORT ---
Subjective Date:: 07/27/20 Subjective:: ИВАН MONTELONGO is a 35 year old female past medical history of IV drug abuse, was admitted to [facility] on 05/19/2020, for altered mental status, found to have MSSA bacteremia, and on 2D echo was noted to have endocarditis with large mitral valve requiring surgery and there is was transferred to [facility] on 06/06/2020. At [facility] cardiac surgery was consulted and patient received bovine mitral valve replacement with 27 mm mitral Magna Ease on 06/16/2020, she is transferred back to [facility] on 07/12/2020 to continue her IV antibiotics till 07/28/2019 which will be 6 weeks from the date of valve replacement on 06/16/2020. On presentation to [facility] patient remained hemodynamically stable, asymptomatic except for minor discomfort at the surgical area. Patient denies any fever, chills, nausea, vomiting, diarrhea, constipation, urinary symptoms, weakness, numbness or any focal neurological symptoms. Stating that she is ambulatory, having normal bowel and bladder movements and is p.o. tolerant. 07/21/2020. No acute events overnight. Complaining of mild dysuria, thinking that she is having UTI, stating that she has history of recurrent UTI and she is afraid that she might be getting another UTI, denies any fever, chills, nausea, vomiting, diarrhea, constipation or any urinary symptoms. 07/22/2020. No acute events overnight. Complaining of sore abdomen and abdominal distention otherwise denies any fever, chills, nausea, vomiting. Ambulatory, having normal bowel and bladder movements. 07/23/2020. No acute events overnight. Still complaining of abdominal distention otherwise denies any fever, chills, nausea, vomiting, diarrhea, constipation or any urinary symptoms, ambulatory, having normal bowel and bladder movements. 07/24/2020. No acute overnight. Still complaining of abdominal distention otherwise denies any fever, chills, nausea, vomiting, diarrhea, constipation or any urinary symptoms, ambulatory, having normal bowel and bladder movements. Repeat abdominal ultrasound negative for any sign of ascites. 07/25/2020. No acute events overnight, patient still complaining of persistent abdominal distention and dyspnea on exertion, I have been trying to wean her off of oxygen but unfortunately if the patient exert herself she gets short of breath still dependent on supplemental oxygen, abdominal ultrasound negative for any ascites but concerning for possible acute CHF, pneumonia or PE. 07/26/2020. No acute events overnight. Patient still complaining of persistent abdominal distention and dyspnea on exertion, still dependent on supplemental oxygen, unfortunately patient was found to be in acute heart failure which could explain her persistent weakness exertion and abdominal distention, this morning patient continues to be in apparent distress, denies any fever, chills, nausea, vomiting, diarrhea, constipation or any urinary symptoms. 07/27/2020. No acute events overnight, unfortunately patient has not been adherent with her fluid restriction, still complaining of dyspnea on exertion and abdominal distention, denies any fever, chills, nausea, vomiting, diarrhea, constipation or any urinary symptoms. Reason For Visit: ENDOCARDITIS Physical Exam Vital Signs: Temp Pulse Resp BP Pulse Ox 97.9 F 82 21 H 90/69 L 99 07/27/20 08:11 07/27/20 08:11 07/27/20 08:11 07/27/20 08:11 07/27/20 08:11 Intake & Output 07/26/20 07/27/20 07/28/20 06:59 06:59 06:59 Intake Total 1766 2196 Output Total 1800 Balance 1766 396 Weight 87.9 kg 87.8 kg General appearance: PRESENT: no acute distress, well-developed, well-nourished Head exam: PRESENT: atraumatic, normocephalic Neck exam: ABSENT: carotid bruit, JVD, lymphadenopathy, thyromegaly Respiratory exam: PRESENT: clear to auscultation brandon. ABSENT: rales, rhonchi, wheezes Cardiovascular exam: PRESENT: RRR. ABSENT: diastolic murmur, rubs, systolic murmur GI/Abdominal exam: PRESENT: distended, normal bowel sounds, soft. ABSENT: guarding, mass, organolmegaly, rebound, tenderness Extremities exam: PRESENT: full ROM. ABSENT: calf tenderness, clubbing, pedal edema Neurological exam: PRESENT: alert, awake, oriented to person, oriented to place, oriented to time, oriented to situation, CN II-XII grossly intact. ABSENT: motor sensory deficit Results Laboratory Results: 07/21/20 13:50 07/27/20 08:55 07/27/20 07/27/20 05:45 08:55 Sodium 133.3 L Potassium 4.4 Chloride 91 L Carbon Dioxide 38 H Anion Gap 4 L BUN 19 Creatinine 1.11 1.07 Est GFR ( Amer) > 60 > 60 Glucose 218 H Calcium 9.2 Magnesium 1.9 07/16/20 07/25/20 05:02 11:58 Creatine Kinase 25 L NT-Pro-B Natriuret Pep 3460 H Impressions: Abdomen Ultrasound 07/24/20 00:00 IMPRESSION: NO EVIDENCE FOR ASCITES. Chest X-Ray 07/25/20 00:00 IMPRESSION: Stable mild right basilar pleural effusion and associated atelectasis. Stable enlarged cardiac silhouette. Chest/Abdomen CTA 07/25/20 00:00 IMPRESSION: 1. Respiratory motion obscures detail. There is no central pulmonary embolism in the pulmonary or lobar pulmonary arteries. Cannot exclude a distal pulmonary embolus in the segmental and subsegmental pulmonary arteries. 2. Moderate right and trace left effusion, stable from radiograph. Compressive atelectasis/consolidation at the right lung base. 3. Postoperative changes of CABG. Mitral valve repair. Assessment and Plan - Diagnosis (1) Acute CHF (congestive heart failure) Qualifiers: Heart failure type: right-sided Qualified Code(s): I50.811 - Acute right heart failure Is this a current diagnosis for this admission?: Yes Plan: Acute heart failure with preserved ejection fraction. Denies any anginal symptoms. No history of CAD. History of mitral valve replacement due to infective endocarditis. 05/29/2020 BABAK: LVEF normal, ejection fraction more than 55%. 07/25/2020 proBNP:3460 07/25/2020. 2D echo: Ejection fraction 55 to 60%, moderate to severe tricuspid regurgitation. Moderate pulmonary hypertension by echo. Cardiac diet, fluid restriction, strict in and out, IV Lasix, beta blockers. Cardiology consulted. Recommendations noted. (2) Tricuspid regurgitation Qualifiers: Cardiac valve disease etiology: nonrheumatic Qualified Code(s): I36.1 - Nonrheumatic tricuspid (valve) insufficiency Is this a current diagnosis for this admission?: Yes Plan: As per echo reading. Not sure if this is postsurgical complication for recent mitral valve replacement. Chart review shows that patient did have severe tricuspid regurgitation after surgery. 05/20/2020. 2D echo ejection fraction 55 to 60%, mild amount of tricuspid regurgitation. Mild pulmonary hypertension. 07/25/2020. 2D echo: Ejection fraction 55 to 60%, moderate to severe tricuspid regurgitation. Moderate pulmonary hypertension by echo. We will contact to [facility] and talk to cardiovascular surgeon for further recommendations. (3) Endocarditis due to methicillin susceptible Staphylococcus aureus (MSSA) Is this a current diagnosis for this admission?: Yes Plan: Status post mitral valve replacement on 06/16/2020 at [facility] medical. History of longstanding history IV drug use. As per chart review and previous physician's note: 05/19 Admitted OM for AMS 05/20 TTE showed normal cardiac function, negative for vegetations, mild pulmonary hypertension 05/21 Positive BC MSSA x2 bottles 05/23 Negative BC on Nafcillin 2g q4hr 05/29 BABAK 2.8 x 1 cm posterior leaflet mitral valve vegetation 05/29 Transferred to [facility] Repeat TTE at [facility] large mobile vegetation measuring 3.2x1.4cm with trivial MR. CT surgery scheduled at [facility] for 06/16, transfer back to [facility] 06/15 prior to surgery with Dr. Martinez. Status post bioprosthetic mitral valve replacement with 27 mm magna ease on 06/16/2020. Continue vancomycin at 1000 mg IV twice daily 6 weeks from the day of surgery which was 06/16/2020. Last day of antibiotic therapy 07/28/2019. (4) Septic embolism Is this a current diagnosis for this admission?: Yes Plan: Currently asymptomatic. 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 Patient is stating that she is currently asymptomatic, denies any focal neurological symptoms. Alert and oriented x4, p.o. tolerant, ambulatory having normal bowel bladder movement. Benign neurological examination. As per MRI for on 06/11/2020 Repeat brain MRI w/w/o contrast on 06/11 multiple rim-enhancing lesions within the cerebral hemispheres bilaterally similar which corresponded to previous areas of restricted diffusion, consistent with multifo tamiko septic emboli. A couple of new foci of restricted diffusion in the parietal lobe bilaterally without associated enhancement may represent small bland embolic infarcts. Continue current treatment for endocarditis. Continue antiplatelets. Optimize diabetes control. (5) Diabetes Qualifiers: Diabetes mellitus type: type 2 Diabetes mellitus lobsterman insulin use: unspecified lobsterman insulin use status Diabetes mellitus complication status: without complication Qualified Code(s): E11.9 - Type 2 diabetes mellitus without complications Is this a current diagnosis for this admission?: Yes Plan: Diabetic diet. Hypoglycemia protocol. Continue home dose Basal and Premeal insulin. Sliding scale insulin. (6) Heroin abuse Is this a current diagnosis for this admission?: Yes Plan: Continue Subutex 8 mg twice daily. Outpatient follow up with [facility] the morning following discharge for continued management of substance abuse. (7) Neuropathy Is this a current diagnosis for this admission?: Yes Plan: Complains of worsening paresthesia/neuropathy pain to BLE. Asks to increase gabapentin. Increase gabapentin to 600 mg TID. (8) Sinus tachycardia Is this a current diagnosis for this admission?: Yes Plan: Resolved; HR low to mid 90s. No longer w/ palpitations. Resting room air saturation 96%. Chest x-ray is benign other than a mild right sided pleural effusion and associ ated atelectasis. Mild cardiomegaly. Chemistry and CBC are reassuring. Continue Toprol 25 mg once daily. (9) Hepatitis C antibody positive in blood Is this a current diagnosis for this admission?: Yes Plan: RUQ U/s revealed hepatomegaly and a right-sided pleural effusion. No comment to ascites. Continue furosemide and spironolactone. Monitor output and electrolytes closely. Outpatient follow-up with GI and/or ID for treatment of hepatitis C. (10) Normocytic normochromic anemia Is this a current diagnosis for this admission?: Yes Plan: Hgb stable. Multivitamin w. iron supplementation. (11) Tobacco abuse Is this a current diagnosis for this admission?: Yes Plan: Unfortunate patient is a current day smoker. Was found to be vaping while in the hospital. Patient extensively counseled on importance of abstaining from tobacco abuse or any form of vaping. NicoDerm patch will be provided. (12) Dyspnea on exertion Is this a current diagnosis for this admission?: Yes Plan: Likely due to acute CHF. 07/25/2020. CTA not optimal due to motion artifact. CTA negative for central pulmonary embolism, or any pulmonary or lobular pulmonary arteries. Not excluded distal pulmonary embolus in the segmental and subsegmental pulmonary arteries. We will repeat CTA tomorrow. - Time Time Spent with patient: 35 or more minutes Anticipated Discharge Disposition: Home, Self Care Anticipated Discharge Timeframe: within 24 hours
[2020-07-27] MEDS: FUROSEMIDE INJ/PF 20 MG/2 ML SDV IV SCH ×2 (13:51→23:36)
[2020-07-27] MEDS: LIDOCAINE 5% (700 MG) TRANSDERMAL ADH..PATCH TOP SCH (14:03)
[2020-07-27] MEDS: DICYCLOMINE HCL 10 MG CAPSULE PO PRN ×2 (15:45→15:47)
[2020-07-27] MEDS: VANCOMYCIN HCL 750 MG in DEXTROSE 5%-WATER 250 ML IV SCH (17:31)
[2020-07-27] MEDS: MELATONIN 3 MG TABLET PO SCH (23:34)
[2020-07-27] MEDS: PHARMACY COMMUNICATION ORDER MC SCH (23:36)
[2020-07-27] MEDS: TRAZODONE HCL 50 MG TABLET PO SCH (23:39)
[2020-07-28] MEDS: VANCOMYCIN HCL 750 MG in DEXTROSE 5%-WATER 250 ML IV SCH (05:17)
[2020-07-28] MEDS: GABAPENTIN 300 MG CAPSULE PO SCH ×2 (05:17→14:14)
[2020-07-28] MEDS: FUROSEMIDE INJ/PF 20 MG/2 ML SDV IV SCH (05:18)
[2020-07-28] MEDS: CYCLOBENZAPRINE HCL 10 MG TABLET PO SCH ×2 (05:18→14:15)
[2020-07-28] MEDS: ALBUTEROL SULFATE HFA (90 MCG/PUFF) 8 GM MDI IH SCH ×2 (05:22→12:16)
[2020-07-28] MEDS: INSULIN LISPRO 100 UNIT/ML 3 ML VIAL SUBCUT SCH ×4 (08:00→12:07)
[2020-07-28 08:54] LABS: ABSOLUTE BASOPHILS # (AUTO) 0.1 10^3/uL (0.0-0.2); ABSOLUTE EOSINOPHILS # (AUTO) 0.4 10^3/uL (0.0-0.6); ABSOLUTE LYMPHOCYTES (AUTO) 1.5 10^3/uL (0.5-4.7); ABSOLUTE MONOCYTES (AUTO) 0.5 10^3/uL (0.1-1.4); ABSOLUTE NEUT (AUTO) 3.5 10^3/uL (1.7-8.2); BASOPHILS % (AUTO) 0.9 % (0-2); EOSINOPHILS % (AUTO) 7.1 % (0-6); HEMOGLOBIN 8.3 g/dL (12.0-15.5); LYMPHOCYTES % (AUTO) 25.8 % (13-45); MEAN CORPUSCULAR HEMOGLOBIN 27.3 pg (27.0-33.4); MEAN CORPUSCULAR VOLUME 83 fl (80-97); MONOCYTES % (AUTO) 8.3 % (3-13); PLATELET COUNT 370 10^3/uL (150-450); RED BLOOD COUNT 3.02 10^6/uL (3.72-5.28); RED CELL DISTRIBUTION WIDTH 17.3 % (11.5-14.0); SEGMENTED NEUTROPHILS % (AUTO) 57.9 % (42-78); TOTAL CELLS COUNTED % (AUTO) 100 %
[2020-07-28 09:10] LABS: ANION GAP 11 (5-19); BLOOD UREA NITROGEN 20 mg/dL (7-20); CALCIUM 9.5 mg/dL (8.4-10.2); CARBON DIOXIDE 36 mmol/L (22-30); CHLORIDE 89 mmol/L (98-107); GLUCOSE 302 mg/dL (75-110); POTASSIUM 4.1 mmol/L (3.6-5.0)
[2020-07-28] MEDS: INSULIN NPH (ISOPHANE), HUMAN 100 UNIT/ML 3 ML SUBCUT SCH (11:59)
[2020-07-28] MEDS: FAMOTIDINE 20 MG TABLET PO SCH (12:05)
[2020-07-28] MEDS: ASPIRIN 81 MG TABLET, ENT COATED PO SCH (12:05)
[2020-07-28] MEDS: BUPRENORPHINE HCL 2 MG SUBLINGUAL TABLET SL SCH (12:05)
[2020-07-28] MEDS: MULTIVITAMIN TABLET PO SCH (12:06)
[2020-07-28] MEDS: LIDOCAINE 5% (700 MG) TRANSDERMAL ADH..PATCH TOP SCH (12:06)
[2020-07-28] MEDS: PAROXETINE HCL 20 MG TABLET PO SCH (12:06)
[2020-07-28] MEDS: MAGNESIUM OXIDE 400 MG TABLET PO SCH (12:06)
[2020-07-28] MEDS: DOCUSATE SODIUM 100 MG CAPSULE PO SCH (12:06)
[2020-07-28] MEDS: METOPROLOL SUCCINATE 25 MG TAB.SR.24H PO SCH (12:06)
[2020-07-28] MEDS: POLYETHYLENE GLYCOL 3350 POWDER 17 GM/1 PACKET PO SCH (12:08)
[2020-07-28] MEDS: NICOTINE 21 MG/24 HR PATCH.TD24 TD SCH (12:13)
[2020-07-28] MEDS: ENOXAPARIN SODIUM INJ 40 MG/0.4 ML DISP.SYRIN SUBCUT SCH (12:14)
[2020-07-28] MEDS: NORMAL SALINE 10 ML SDV (SCHEDULED) IV SCH (12:15)
--- NOTE | 2020-07-28 12:38 | RADIOLOGY REPORT (SQ) ---
EXAM DESCRIPTION: CHEST SINGLE VIEW IMAGES COMPLETED DATE/TIME: 07/28/2020 12:12 pm REASON FOR STUDY: sob COMPARISON: 07/25/2020 EXAM PARAMETERS: NUMBER OF VIEWS: One view. TECHNIQUE: Single frontal radiographic view of the chest acquired. RADIATION DOSE: NA LIMITATIONS: None. FINDINGS: LUNGS AND PLEURA: Stable small loculated right pleural effusion. No pulmonary infiltrate. No mass. MEDIASTINUM AND HILAR STRUCTURES: No masses. Contour normal. HEART AND VASCULAR STRUCTURES: Heart size is borderline. There is no pulmonary edema. BONES: No acute findings. HARDWARE: Sternotomy wires. Heart valve. Left-sided PICC has its tip in the superior vena cava near the right atrium. OTHER: No other significant finding. IMPRESSION: Stable small loculated right pleural effusion. Borderline heart size without pulmonary edema. TECHNICAL DOCUMENTATION: JOB ID: [id number] [employer]- All Rights Reserved Reading location - IP/workstation name: [email or web address]
[2020-07-28] MEDS ORDERED: FUROSEMIDE INJ/PF 40 MG/4 ML SDV IV SCH (14:00)
[2020-07-28] MEDS ORDERED: VANCOMYCIN HCL 750 MG in DEXTROSE 5%-WATER 250 ML IV ONE (14:00)
--- NOTE | 2020-07-28 15:55 | PDOC DISCHARGE SUMMARY ---
Impression - Admit/DC Date/PCP Admission Date/Primary Care Provider: 07/11/20 23:48 Discharge Date: 07/28/20 - Discharge Diagnosis (1) Acute CHF (congestive heart failure) Is this a current diagnosis for this admission?: Yes (2) Tricuspid regurgitation Is this a current diagnosis for this admission?: Yes (3) Endocarditis due to methicillin susceptible Staphylococcus aureus (MSSA) Is this a current diagnosis for this admission?: Yes (4) Septic embolism Is this a current diagnosis for this admission?: Yes (5) Diabetes Is this a current diagnosis for this admission?: Yes (6) Heroin abuse Is this a current diagnosis for this admission?: Yes (7) Neuropathy Is this a current diagnosis for this admission?: Yes (8) Sinus tachycardia Is this a current diagnosis for this admission?: Yes (9) Hepatitis C antibody positive in blood Is this a current diagnosis for this admission?: Yes (10) Normocytic normochromic anemia Is this a current diagnosis for this admission?: Yes (11) Tobacco abuse Is this a current diagnosis for this admission?: Yes (12) Dyspnea on exertion Is this a current diagnosis for this admission?: Yes - Additional Information Discharge Diet: Cardiac, Diabetic Discharge Activity: Activity As Tolerated, Balance Activity w/Rest, Weigh Daily Referrals: EFRAÍN KC MD [ACTIVE PROVISIONAL STAFF] - 08/05/20 12:30 pm (check in at 12:30) Prescriptions: Furosemide [Lasix] 40 mg PO BID 30 Days #60 tab Metoprolol Succinate [Toprol Xl 25 mg Tab.sr] 25 mg PO DAILY 30 Days #30 tab.sr.24h Home Medications: Buprenorphine HCl 8 mg SL BID 05/19/20 Lidocaine [Lidocaine Pain Relief] 1 patch TOP DAILY 06/07/20 Gabapentin [Neurontin 300 mg Capsule] 300 mg PO Q8 capsule 06/13/20 Heparin Sodium,Porcine [Heparin Inj 5,000 Units/ml 1 ml Vial] 5,000 unit SUBCUT Q8 vial 06/13/20 Nicotine [Nicoderm 21 mg/24 Hr Transderm Patch] 1 each TD DAILY patch.td24 06/13/20 Paroxetine HCl [Paxil 20 mg Tablet] 20 mg PO DAILY tablet 06/13/20 Acetaminophen [Tylenol 325 mg Tablet] 500 mg PO Q6HP PRN 07/12/20 Aspirin [Ecotrin 81 mg EC Tablet] 81 mg PO DAILY 12/26/20 Bisacodyl [Dulcolax 5 mg Tablet] 10 mg PO DAILY 07/12/20 Cyclobenzaprine HCl [Flexeril 10 mg Tablet] 10 mg PO TID 07/12/20 Docusate Sodium [Colace 100 mg Capsule] 100 mg PO BID 07/12/20 Famotidine [Acid Controller] 20 mg PO DAILY 07/12/20 Hydroxyzine HCl [Atarax 10 mg Tablet] 25 mg PO Q6 PRN 07/12/20 Insulin Lispro [Humalog Insulin (Lispro) 100 unit/mL] 8 unit SUBCUT AC 07/12/20 Mag Hydrox/Al Hydrox/Simeth [Maalox Plus Susp 30 Udcup] 30 ml PO Q6 PRN 07/12/20 Magnesium Oxide 800 mg PO DAILY 07/12/20 Melatonin [Melatonin 3 mg Tablet] 9 mg PO QHS 07/12/20 NPH, Human Insulin Isophane [Humulin N (NPH) Insulin 100 unit/mL] 10 units SUBCUT Q12 07/12/20 Paroxetine HCl [Paxil 20 mg Tablet] 20 mg PO DAILY 07/12/20 Polyethylene Glycol 3350 [Miralax Powder 17 gm/Packet] 17 g PO DAILY 07/12/20 Trazodone HCl [Desyrel 50 mg Tablet] 50 mg PO QHS 07/12/20 Furosemide [Lasix] 40 mg PO BID 30 Days #60 tab 07/28/20 Metoprolol Succinate [Toprol Xl 25 mg Tab.sr] 25 mg PO DAILY 30 Days #30 tab.sr.24h 07/28/20 History of Present Illiness History of Present Illness: ИВАН MONTELONGO is a 35 year old female past medical history of IV drug abuse, was admitted to [facility] on 05/19/2020, for altered mental status, found to have MSSA bacteremia, and on 2D echo was noted to have endocarditis with large mitral valve requiring surgery and there is was transferred to [facility] on 06/06/2020. At [facility] cardiac surgery was consulted and patient received bovine mitral valve replacement with 27 mm mitral Magna Ease on 06/16/2020, she is transferred back to [facility] on 07/12/2020 to continue her IV antibiotics till 07/28/2019 which will be 6 weeks from the date of valve replacement on . On presentation to [facility] patient remained hemodynamically stable, asymptomatic except for minor discomfort at the surgical area. Patient denies any fever, chills, nausea, vomiting, diarrhea, constipation, urinary symptoms, weakness, numbness or any focal neurological symptoms. Stating that she is ambulatory, having normal bowel and bladder movements and is p.o. tolerant. Hospital Course Hospital Course: (1) Acute CHF (congestive heart failure) Abdominal distention and dyspnea on exertion much improved. Patient was ambulated for 6 minutes without oxygen and her SPO2 did not drop below 92. Patient was advised to stay another day in the hospital to be further diuresed however she is very anxious and adamant about leaving stating that she has been here in the hospital for more than 60 days and she would like to go home. She stated that she will return back to ED if her symptoms gets worse. Was diagnosed with new onset acute heart failure with preserved ejection fraction. Denies any anginal symptoms or CAD history. History of mitral valve replacement due to infective endocarditis. 05/29/2020 BABAK: LVEF normal, ejection fraction more than 55%. 07/25/2020 proBNP:[id number] 07/25/2020. 2D echo: Ejection fraction 55 to 60%, moderate to severe tricuspid regurgitation. Moderate pulmonary hypertension by echo. Was a started on cardiac diet, fluid restriction, strict in and out, IV Lasix, beta blockers. Cardiology consulted. Recommendations noted. Discharged on Lasix 40 mg p.o. twice daily and metoprolol 25 mg p.o. daily. Patient and mother were both extensively educated and advised on importance of fluid restriction, medication adherence and following up with cardiology and cardiovascular surgeon. (2) Tricuspid regurgitation As per echo reading. Not sure if this is postsurgical complication for recent mitral valve replacement. Chart review shows that patient did have severe tricuspid regurgitation after surgery. 05/20/2020. 2D echo ejection fraction 55 to 60%, mild amount of tricuspid regurgitation. Mild pulmonary hypertension. 07/25/2020. 2D echo: Ejection fraction 55 to 60%, moderate to severe tricuspid regurgitation. Moderate pulmonary hypertension by echo. I contacted [facility] and talk to Dr. Smith Sneed updated him about tricuspid regurgitation, he told me that he will discuss it with Dr. Martinez and will call me back. I was called back by Dr. Sneed and was advised that patient could be discharged home and they will call her to make an appointment for her and to see her in their office. Patient and mother who was present in the room were extensively advised on importance of following up at [facility] to be evaluated by cardiovascular surgeon. (3) Endocarditis due to methicillin susceptible Staphylococcus aureus (MSSA) Status post mitral valve replacement on 06/16/2020 at [facility] medical. History of longstanding history IV drug use. As per chart review and previous physician's note: 05/19 Admitted OM for AMS 05/20 TTE showed normal cardiac function, negative for vegetations, mild pulmonary hypertension 05/21 Positive BC MSSA x2 bottles 05/23 Negative BC on Nafcillin 2g q4hr 05/29 BABAK 2.8 x 1 cm posterior leaflet mitral valve vegetation 05/29 Transferred to [facility] Repeat TTE at [facility] large mobile vegetation measuring 3.2x1.4cm with trivial MR. CT surgery scheduled at [facility] for 06/16, transfer back to [facility] 06/15 prior to surgery with Dr. Martinez. Status post bioprosthetic mitral valve replacement with 27 mm magna ease on 06/16/2020. Continue vancomycin at 1000 mg IV twice daily 6 weeks from the day of surgery which was 06/16/2020. Completed a full course of IV vancomycin. Creatinine WNL at the time of discharge. Patient was extensively advised on abstinence from any recreational drugs in the future. (4) Septic embolism Currently asymptomatic. 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 Patient is stating that she is currently asymptomatic, denies any focal neurological symptoms. Alert and oriented x4, p.o. tolerant, ambulatory having normal bowel bladder movement. Benign neurological examination. As per MRI for on 06/11/2020 Repeat brain MRI w/w/o contrast on 06/11 multiple rim-enhancing lesions within the cerebral hemispheres bilaterally similar which corresponded to previous areas of restricted diffusion, consistent with multifocal septic emboli. A couple of new foci of restricted diffusion in the parietal lobe bilaterally without associated enhancement may represent small bland embolic infarcts. Continue current treatment for endocarditis. Repeat CTA did not show any more septic emboli. (5) Diabetes Well-controlled. Diabetic diet. Start on diabetic protocol. Advised to resume home meds upon discharge. (6) Heroin abuse Continue Subutex 8 mg twice daily. Outpatient follow up with [facility] the morning following discharge for continued management of substance abuse. (7) Neuropathy Complains of worsening paresthesia/neuropathy pain to BLE. Asks to increase gabapentin. Started on home meds. (8) Sinus tachycardia Probably due to acute CHF. Resolved; HR low to mid 90s. No longer w/ p alpitations. Resting room air saturation 96%. Chest x-ray is benign other than a mild right sided pleural effusion and associated atelectasis. Mild cardiomegaly. Discharged on Toprol 25 mg p.o. daily. Was follow with Dr. Granda as outpatient. (9) Hepatitis C antibody positive in blood RUQ U/s revealed hepatomegaly and a right-sided pleural effusion. No comment to ascites. Continue furosemide and spironolactone. Monitor output and electrolytes closely. Outpatient follow-up with GI and/or ID for treatment of hepatitis C. (10) Normocytic normochromic anemia Hgb stable. Multivitamin w. iron supplementation. (11) Tobacco abuse Unfortunate patient is a current day smoker. Was found to be vaping while in the hospital. Patient extensively counseled on importance of abstaining from tobacco abuse or any form of vaping. NicoDerm patch will provided. Extensively advised on abstinence. (12) Dyspnea on exertion Much improved. Likely due to acute CHF. 07/25/2020. CTA not optimal due to motion artifact. CTA negative for central pulmonary embolism, or any pulmonary or lobular pulmonary arteries. Not excluded distal pulmonary embolus in the segmental and subsegmental pulmonary arteries. We will repeat CTA tomorrow. Physical Exam Vital Signs: Temp Pulse Resp BP Pulse Ox 97.5 F 92 18 110/59 L 100 07/28/20 10:53 07/28/20 10:53 07/28/20 10:53 07/28/20 10:53 07/28/20 10:53 Intake & Output 07/27/20 07/28/20 07/29/20 06:59 06:59 06:59 Intake Total 2196 1460 366 Output Total 1800 2600 900 Balance 266 -4270 -298 Weight 87.8 kg 86.1 kg 86.1 kg Results Laboratory Results: WBC 6.0 10^3/uL (4.0-10.5) 07/28/20 08:00 RBC 3.02 10^6/uL (3.72-5.28) L 07/28/20 08:00 Hgb 8.3 g/dL (12.0-15.5) L 07/28/20 08:00 Hct 25.0 % (36.0-47.0) L 07/28/20 08:00 MCV 83 fl (80-97) 07/28/20 08:00 MCH 27.3 pg (27.0-33.4) 07/28/20 08:00 MCHC 33.0 g/dL (32.0-36.0) 07/28/20 08:00 RDW 17.3 % (11.5-14.0) H 07/28/20 08:00 Plt Count 370 10^3/uL (150-450) 07/28/20 08:00 Lymph % (Auto) 25.8 % (13-45) 07/28/20 08:00 [place] % (Auto) 8.3 % (3-13) 07/28/20 08:00 Eos % (Auto) 7.1 % (0-6) H 07/28/20 08:00 Baso % (Auto) 0.9 % (0-2) 07/28/20 08:00 Absolute Neuts (auto) 3.5 10^3/uL (1.7-8.2) 07/28/20 08:00 Absolute Lymphs (auto) 1.5 10^3/uL (0.5-4.7) 07/28/20 08:00 Absolute Monos (auto) 0.5 10^3/uL (0.1-1.4) 07/28/20 08:00 Absolute Eos (auto) 0.4 10^3/uL (0.0-0.6) 07/28/20 08:00 Absolute Basos (auto) 0.1 10^3/uL (0.0-0.2) 07/28/20 08:00 Seg Neutrophils % 57.9 % (42-78) 07/28/20 08:00 D-Dimer 7.54 ug/mL (0.00-0.50) H 07/25/20 11:58 Sodium 136.0 mmol/L (137-145) L 07/28/20 08:00 Potassium 4.1 mmol/L (3.6-5.0) 07/28/20 08:00 Chloride 89 mmol/L (98-107) L 07/28/20 08:00 Carbon Dioxide 36 mmol/L (22-30) H 07/28/20 08:00 Anion Gap 11 (5-19) 07/28/20 08:00 BUN 20 mg/dL (7-20) 07/28/20 08:00 Creatinine 1.05 mg/dL (0.52-1.25) 07/28/20 08:00 Est GFR ( Amer) > 60 (>60) 07/28/20 08:00 Est GFR (MDRD) Non-Af 59 (>60) L 07/28/20 08:00 Glucose 302 mg/dL (75-110) H 07/28/20 08:00 POC Glucose 236 mg/dL (70-110) H 07/28/20 10:54 Calcium 9.5 mg/dL (8.4-10.2) 07/28/20 08:00 Magnesium 1.9 mg/dL (1.6-2.3) 07/27/20 08:55 Total Bilirubin 0.5 mg/dL (0.2-1.3) 07/21/20 13:50 Direct Bilirubin 0.5 mg/dL (0.0-0.4) H 07/21/20 13:50 Neonat Total Bilirubin Not Reportable 07/21/20 13:50 Neonat Direct Bilirubin Not Reportable 07/21/20 13:50 Neonat Indirect Bili Not Reportable 07/21/20 13:50 AST 15 U/L (14-36) 07/21/20 13:50 ALT 10 U/L (<35) 07/21/20 13:50 Alkaline Phosphatase 129 U/L (38-126) H 07/21/20 13:50 Creatine Kinase 25 U/L (30-135) L 07/16/20 05:02 C-Reactive Protein 37.4 mg/L (<10.0) H 07/13/20 05:54 NT-Pro-B Natriuret Pep 3460 pg/mL (<125) H 07/25/20 11:58 Total Protein 7.7 g/dL (6.3-8.2) 07/21/20 13:50 Albumin 3.7 g/dL (3.5-5.0) 07/21/20 13:50 Urine Color STRAW 07/21/20 13:53 Urine Appearance SLIGHTLY-CLOUDY 07/21/20 13:53 Urine pH 7.0 (5.0-9.0) 07/21/20 13:53 Ur Specific [place] 1.006 07/21/20 13:53 Urine Protein NEGATIVE mg/dL (NEGATIVE) 07/21/20 13:53 Urine Glucose (UA) NEGATIVE mg/dL (NEGATIVE) 07/21/20 13:53 Urine Ketones NEGATIVE mg/dL (NEGATIVE) 07/21/20 13:53 Urine Blood NEGATIVE (NEGATIVE) 07/21/20 13:53 Urine Nitrite NEGATIVE (NEGATIVE) 07/16/20 10:30 Urine Nitrite (Reflex) NEGATIVE (NEGATIVE) 07/21/20 13:53 Urine Bilirubin NEGATIVE (NEGATIVE) 07/21/20 13:53 Urine Urobilinogen NEGATIVE mg/dL (<2.0) 07/21/20 13:53 Ur Leukocyte Esterase NEGATIVE (NEGATIVE) 07/16/20 10:30 Leukocyte Esterase Rfl NEGATIVE (NEGATIVE) 07/21/20 13:53 Urine WBC (Auto) 1 /HPF 07/16/20 10:30 Urine RBC (Auto) 0 /HPF 07/21/20 13:53 Urine Bacteria (Auto) TRACE /HPF 07/21/20 13:53 Urine WBC (Reflex) < 1 /HPF 07/21/20 13:53 Squamous Epi Cells Auto 4 /HPF 07/21/20 13:53 Urine Mucus (Auto) RARE /LPF 07/21/20 13:53 Urine Ascorbic Acid NEGATIVE (NEGATIVE) 07/21/20 13:53 Time Trough Drawn 0545 07/27/20 05:45 Vancomycin Trough 20.2 ug/mL (5.0-20.0) H 07/27/20 05:45 Urine Opiates Screen NEGATIVE 07/16/20 10:30 Urine Methadone Screen NEGATIVE 07/16/20 10:30 Ur Barbiturates Screen NEGATIVE 07/16/20 10:30 Ur Phencyclidine Scrn NEGATIVE 07/16/20 10:30 Ur Amphetamines Screen NEGATIVE 07/16/20 10:30 U Benzodiazepines Scrn NEGATIVE 07/16/20 10:30 Urine Cocaine Screen NEGATIVE 07/16/20 10:30 U Marijuana (THC) Screen NEGATIVE 07/16/20 10:30 07/25/20 11:58 NT-Pro-B Natriuret Pep 3460 H Impressions: Abdomen Ultrasound 07/14/20 00:00 IMPRESSION: Hepatomegaly. Contracted gallbladder as described. Right pleural effusion. Chest X-Ray 07/16/20 00:00 IMPRESSION: Borderline heart size without iogr pulmonary edema. Right pleural effusion. Cannot exclude a limited right lower lobe pneumonia. The appearance in the right base may be secondary to fluid that is layered out. Abdomen Ultrasound 07/24/20 00:00 IMPRESSION: NO EVIDENCE FOR ASCITES. Chest X-Ray 07/25/20 00:00 IMPRESSION: Stable mild right basilar pleural effusion and associated atelectasis. Stable enlarged cardiac silhouette. Chest/Abdomen CTA 07/25/20 00:00 IMPRESSION: 1. Respiratory motion obscures detail. There is no central pulmonary embolism in the pulmonary or lobar pulmonary arteries. Cannot exclude a distal pulmonary embolus in the segmental and subsegmental pulmonary arteries. 2. Moderate right and trace left effusion, stable from radiograph. Compressive atelectasis/consolidation at the right lung base. 3. Postoperative changes of CABG. Mitral valve repair. Chest X-Ray 07/28/20 00:00 IMPRESSION: Stable small loculated right pleural effusion. Borderline heart size without pulmonary edema.
[2020-07-28 16:18] VITALS: BP 120/60
--- NOTE | 2020-07-28 20:45 | RADIOLOGY REPORT (SQ) ---
CT ANGIOGRAM CHEST WITH IV CONTRAST: 07/28/2020 7:40 PM NUTRITION EDUCATOR HISTORY: 35-year old patient with concern for pulmonary artery embolism, dyspnea. TECHNIQUE: Postcontrast CT through the chest was performed per protocol for CT angiography. 3D Multiplanar reformations were performed at the workstation. Reconstructed sagittal and coronal images were also obtained through the chest. This exam was performed according to our departmental dose-optimization program, which includes automated exposure control, adjustment of the mA and/or KV according to the patient's size and/or use of iterative reconstruction technique. COMPARISON: CTA of the chest from 07/25/2020 FINDINGS: The heart size is enlarged. No pericardial effusion is seen. There is a prosthetic mitral valve noted. Prominence of the right paratracheal region is due to a prominent SVC. There are shotty paratracheal, precarinal and pretracheal lymph nodes measuring up to 8 to 9 mm in short axis dimension. The thoracic aorta is normal in size. The main pulmonary artery is enlarged and measures up to 3.7 cm in transverse dimension. No filling defects are seen within the pulmonary arteries to suggest a pulmonary artery embolism. The thyroid gland is unremarkable. The central tracheobronchial tree is patent. There is a small effusion with overlying airspace opacities. A left upper extremity PICC line catheter tip projects at the SVC/right atrial junction. There is some mild groundglass change with interlobular septal thickening. There is no evidence of a pneumothorax. The bones demonstrate no suspicious lytic or blastic lesion. Midline sternotomy changes are seen. Evaluation of the upper abdomen is limited by the arterial phase. No gross abnormality seen at the upper abdomen. IMPRESSION: No filling defect is seen to suggest a pulmonary artery embolism. There is a moderate right effusion with some overlying airspace opacities. These may reflect asymmetric edema or infection.
== END 2020-07-28 18:30 | disposition home or self-care (01) | DRG 288 ==
LOC: 4N 23:48
PROVIDERS: ADMIT Hospitalist; ATTEND Internal Medicine
DX: I33.0 Acute and subacute infective endocarditis (principal); I50.31 Acute diastolic (congestive) heart failure; I76 Septic arterial embolism; B95.61 Methicillin susceptible Staphylococcus aureus infection as the cause of diseases classified elsewhere; F11.10 Opioid abuse, uncomplicated; R00.0 Tachycardia, unspecified; B19.20 Unspecified viral hepatitis C without hepatic coma; D64.9 Anemia, unspecified; I36.1 Nonrheumatic tricuspid (valve) insufficiency; F17.200 Nicotine dependence, unspecified, uncomplicated; E10.40 Type 1 diabetes mellitus with diabetic neuropathy, unspecified; Z79.82 Long term (current) use of aspirin; Z79.899 Other long term (current) drug therapy; Z79.4 Long term (current) use of insulin; Z95.3 Presence of xenogenic heart valve; Z88.5 Allergy status to narcotic agent; Z88.2 Allergy status to sulfonamides; Z88.6 Allergy status to analgesic agent; Z88.1 Allergy status to other antibiotic agents; Z88.8 Allergy status to other drugs, medicaments and biological substances
CPT/HCPCS: 36415; 71045; 71275; 76705; 80048; 80053; 80202; 80307; 81001; 82550; 82565; 82962; 83735; 83880; 85025; 85027; 85379; 86140; 87070; 93308; 94667; 94799; J0571; J1642; J1650; J1815; J1940; J3370; J3490; J7060; S0119